=== PATIENT | male | born 1935 | race Caucasian/White ===

== ENCOUNTER 2016-08-30 09:37 | Outpatient (RCR) | payer MEDICARE, OTHER ==
--- OUTSIDE RECORDS SUMMARY | 2016-08-23 10:57 | XMS REPORT | Continuity of Care Document ---
Author Author [facility] Organization [facility] Address Unknown Phone Unavailable Care Team Providers Care Suede Cleaner Name Role Phone AKASH GONZALES MD PCP Insurance Providers Payer Name Policy Number Subscriber Name Relationship [employer] [id number] Ginette Cochran 18 Self / Same As Patient For Life [id number] Ginette Cochran 18 Self / Same As Patient Advance Directives Directive Response Recorded Date/Time Advance Directives Yes 08/16/14 1:36pm Organ Donor Yes 08/16/14 1:36pm Resuscitation Status DNR-Pt Request 08/16/14 1:36pm Problems Medical Problems Problem Onset Date Status Urinary tract infection Unknown Active Prostate cancer Unknown Active Medications Medication Dose Route Sig Days/Qty Instructions Order Date Discontinued Date Status [lisinopril] PO DAILY 12/23/12 08/10/14 Discontinued Pantoprazole Sod 40 Mg PO DAILY 12/23/12 Active Ciprofloxacin HCl 500 Mg PO TWICE A DAY 10 Qty 08/16/14 Active Social History Social History Problem Response Recorded Date/Time Alcohol Use Regular Use 08/16/2014 1:36pm Recreational Drug Use No 08/16/2014 1:36pm Recent Foreign Travel No 08/16/2014 1:31pm Smoking Status Never a Smoker 08/16/2014 1:36pm Query Response Start Date Stop Date Smoking Status Never a Smoker Hospital Discharge Instructions No hospital discharge instructions. Plan of Care No plan of care. Functional Status No functional status results. Allergies, Adverse Reactions, Alerts Allergen Type Severity Reaction Status Last Updated No Known Drug Allergies Active 12/23/12 Immunizations Name Given Type Date of Pneumonia Vaccine 10/14/09 Historical Date of Influenza Vaccine 08/14/12 Historical Vital Signs Acute Vital Signs Vital Response Date/Time Temperature (Fahrenheit) 98.7 degrees F (97.6 - 99.5) Temperature (Calculated Celsius) 37.06107 degrees C (36.4 - 37.5) Temperature Source Temporal Pulse Rate (adult) 109 bpm (60 - 90) Respiratory Rate 18 bpm (12 - 24) O2 Sat by Pulse Oximetry 97 % (88 - 100) Blood Pressure 146/69 mm Hg Pain Pain Intensity 4 Height (Feet) 5 feet Height (Inches) 8.00 inches Height (Calculated Centimeters) 172.586915 cm Weight (Pounds) 150 pounds Weight (Calculated Grams) 40472.856 gm Weight (Calculated Kilograms) 68.000157 kilograms Calculated BMI 21.09 Results Test Source Date Result Interp. Ref. Range Comments Alanine Aminotransferase (ALT/SGPT) August 10, 2014 11:20am 13 U/L N 0- 55 Albumin August 10, 2014 11:20am 4.2 G/DL N 3.2-4.5 Alkaline Phosphatase August 10, 2014 11:20am 107 U/L N 40-136 Aspartate Amino Transf (AST/SGOT) August 10, 2014 11:20am 24 U/L N 5- 34 BUN/Creatinine Ratio August 10, 2014 11:20am 14 - Blood Urea Nitrogen August 10, 2014 11:20am 11 MG/DL N 7-18 Calcium Level August 10, 2014 11:20am 9.0 MG/DL N 8.5-10.1 Carbon Dioxide Level August 10, 2014 11:20am 24 MMOL/L N 21-32 Chloride Level August 10, 2014 11:20am 106 MMOL/L N 98-107 Creatinine August 10, 2014 11:20am 0.79 MG/DL N 0.60-1.30 Glucose Level August 10, 2014 11:20am 71 MG/DL N 70-105 Potassium Level August 10, 2014 11:20am 3.7 MMOL/L N 3.6-5.0 Sodium Level August 10, 2014 11:20am 142 MMOL/L N 135-145 Total Bilirubin August 10, 2014 11:20am 1.8 MG/DL H 0.1-1.0 Total Protein August 10, 2014 11:20am 7.1 G/DL N 6.4-8.2 Estimat Glomerular Filtration Rate August 10, 2014 11:20am > 60 - GFR INTERPRETIVE DATA UNITS FOR ESTIMATED GFR (eGFR): mL/min/1.73 M2 REFERENCE RANGE FOR ESTIMATED GFR (eGFR) eGFR NORMAL eGFR >60 MODERATELY DECREASED eGFR 30-59 SEVERLY DECREASED eGFR 15-29 KIDNEY FAILURE <15 (OR DIALYSIS) Procedures Procedure Status Date Provider(s) COLONOSCOPY AND BIOPSY completed 08/10/14 AKASH GONZALES MD Encounters Encounter Location Date/Time Departed Emergency Room [facility] 08/16/14 12:53pm Registered Clinic [facility] 08/06/14 7:08am Recent Diagnosis
[2016-08-23 11:24] LABS: BASOPHILS # (AUTO) 0.1 10^3/uL (0.0-0.1); BASOPHILS % (AUTO) 1 % (0-10); EOSINOPHILS # (AUTO) 0.3 10^3/uL (0.0-0.3); EOSINOPHILS % (AUTO) 5 % (0-10); LYMPHOCYTES # (AUTO) 1.1 X 10^3 (1.0-4.0); LYMPHOCYTES % (AUTO) 16 % (12-44); MEAN CORPUSCULAR HEMOGLOBIN 30 PG (25-34); MEAN CORPUSCULAR HGB CONC 34 G/DL (32-36); MEAN CORPUSCULAR VOLUME 89 FL (80-99); MONOCYTES # (AUTO) 0.5 X 10^3 (0.0-1.0); MONOCYTES % (AUTO) 8 % (0-12); NEUTROPHILS # (AUTO) 4.9 X 10^3 (1.8-7.8); NEUTROPHILS % (AUTO) 71 % (42-75); PLATELET COUNT 291 10^3/uL (130-400); RED BLOOD COUNT 4.16 10^6/uL (4.35-5.85); RED CELL DISTRIBUTION WIDTH 12.5 % (10.0-14.5); WHITE BLOOD COUNT 6.9 10^3/uL (4.3-11.0)
[2016-08-23 11:50] LABS: ALANINE AMINOTRANSFERASE 12 U/L (0-55); ALBUMIN 4.2 G/DL (3.2-4.5); ANION GAP 8 MMOL/L (5-14); ASPARTATE AMINO TRANSFERASE 22 U/L (5-34); BILIRUBIN,TOTAL 0.9 MG/DL (0.1-1.0); BLOOD UREA NITROGEN 14 MG/DL (7-18); BUN/CREATININE RATIO 17; CALCIUM 9.6 MG/DL (8.5-10.1); CARBON DIOXIDE 27 MMOL/L (21-32); CHLORIDE 106 MMOL/L (98-107); CREATININE SERUM 0.84 MG/DL (0.60-1.30); GFR ESTIMATED > 60; GLUCOSE 84 MG/DL (70-105); POTASSIUM 4.3 MMOL/L (3.6-5.0); SODIUM 141 MMOL/L (135-145); TOTAL PROTEIN 6.7 G/DL (6.4-8.2)
[~2016-08-30 09:37] MED LIST: CHOL200025 PO; CIPR500T78 PO; LEUPROLIDE ACETATE 30 MG SQ SCH; PANT40TA3 PO; PNT40TEC PO; VNL37.5T PO; lisinopril PO
== END 2016-11-21 | disposition home or self-care (01) ==
LOC: ONC 09:37
PROVIDERS: ATTEND Internal Medicine Hematology & Oncology
DX: C61 Malignant neoplasm of prostate (principal); C79.51 Secondary malignant neoplasm of bone; Z79.899 Other long term (current) drug therapy
CPT/HCPCS: 36415; 80053; 82306; 84153; 85025; 96402; 99213

== ENCOUNTER 2016-12-20 13:02 | Outpatient (RCR) | payer MEDICARE, OTHER ==
--- OUTSIDE RECORDS SUMMARY | 2016-12-13 09:49 | XMS REPORT | Continuity of Care Document ---
Author Author [facility] Organization [facility] Address Unknown Phone Unavailable Care Team Providers Care Logging Crew Foreman Name Role Phone AKASH GONZALES MD PCP Insurance Providers Payer Name Policy Number Subscriber Name Relationship [employer] [id number] Ginette Cochran 18 Self / Same As Patient For Life [id number] Ginette Cochran 17 Self / Same As [...] F (97.6 - 99.5) Temperature (Calculated Celsius) 37.13041 degrees C (36.4 - 37.5) Temperature Source Temporal Pulse Rate (adult) 109 bpm (60 - 90) Respiratory Rate 18 bpm (12 - 24) O2 Sat by Pulse Oximetry 97 % (88 - 100) Blood Pressure 146/69 mm Hg Pain Pain Intensity 4 Height (Feet) 5 feet Height (Inches) 8.00 inches Height (Calculated Centimeters) 172.428343 cm Weight (Pounds) 150 pounds Weight (Calculated Grams) 90204.856 gm Weight (Calculated Kilograms) 68.601217 kilograms Calculated BMI 21.09 Results Test Source [...] Encounter Location Date/Time Departed Emergency Room [facility] 08/16/14 12:53pm Registered Clinic [facility] 08/06/14 7:08am Recent Diagnosis
[2016-12-13 09:57] LABS: BASOPHILS # (AUTO) 0.1 10^3/uL (0.0-0.1); BASOPHILS % (AUTO) 1 % (0-10); EOSINOPHILS # (AUTO) 0.4 10^3/uL (0.0-0.3); EOSINOPHILS % (AUTO) 9 % (0-10); LYMPHOCYTES # (AUTO) 1.1 X 10^3 (1.0-4.0); LYMPHOCYTES % (AUTO) 27 % (12-44); MEAN CORPUSCULAR HEMOGLOBIN 30 PG (25-34); MEAN CORPUSCULAR HGB CONC 34 G/DL (32-36); MEAN CORPUSCULAR VOLUME 88 FL (80-99); MEAN PLATELET VOLUME 8.3 FL (7.4-10.4); MONOCYTES # (AUTO) 0.5 X 10^3 (0.0-1.0); MONOCYTES % (AUTO) 11 % (0-12); NEUTROPHILS # (AUTO) 2.2 X 10^3 (1.8-7.8); NEUTROPHILS % (AUTO) 52 % (42-75); PLATELET COUNT 283 10^3/uL (130-400); RED BLOOD COUNT 4.04 10^6/uL (4.35-5.85); RED CELL DISTRIBUTION WIDTH 12.7 % (10.0-14.5); WHITE BLOOD COUNT 4.2 10^3/uL (4.3-11.0)
[2016-12-13 10:28] LABS: ALANINE AMINOTRANSFERASE 13 U/L (0-55); ALBUMIN 4.1 G/DL (3.2-4.5); ANION GAP 9 MMOL/L (5-14); ASPARTATE AMINO TRANSFERASE 21 U/L (5-34); BILIRUBIN,TOTAL 0.8 MG/DL (0.1-1.0); BLOOD UREA NITROGEN 14 MG/DL (7-18); BUN/CREATININE RATIO 16; CALCIUM 9.3 MG/DL (8.5-10.1); CARBON DIOXIDE 26 MMOL/L (21-32); CHLORIDE 110 MMOL/L (98-107); CREATININE SERUM 0.89 MG/DL (0.60-1.30); GFR ESTIMATED > 60; GLUCOSE 71 MG/DL (70-105); POTASSIUM 4.4 MMOL/L (3.6-5.0); SODIUM 145 MMOL/L (135-145); TOTAL PROTEIN 6.3 G/DL (6.4-8.2)
== END 2017-03-13 | disposition home or self-care (01) ==
LOC: ONC 13:02
PROVIDERS: ATTEND Internal Medicine Hematology & Oncology
DX: C61 Malignant neoplasm of prostate (principal); C79.51 Secondary malignant neoplasm of bone; Z79.899 Other long term (current) drug therapy
CPT/HCPCS: 36415; 80053; 84153; 85025; 96402; 99213

== ENCOUNTER 2017-04-04 13:22 | Emergency (ER) | payer MEDICARE, OTHER ==
[~2017-04-04] VITALS: Ht 170.2 cm; Wt 72.6 kg
[~2017-04-04 13:22] MED LIST changes: -LEUPROLIDE ACETATE 30 MG SQ SCH
[2017-04-04 14:07] LABS: BILIRUBIN,URINE NEGATIVE (NEGATIVE); KETONES,URINE NEGATIVE (NEGATIVE); LEUKOCYTE ESTERASE ,URINE NEGATIVE (NEGATIVE); NITRITE,URINE NEGATIVE (NEGATIVE); PH,URINE 7 (5-9); PROTEIN,URINE NEGATIVE (NEGATIVE); UROBILINOGEN,URINE NORMAL (NORMAL)
--- NOTE | 2017-04-04 14:21 | ED General ---
General Chief Complaint: Dizziness/Syncope Stated Complaint: DIZZY SPELLS Nursing Triage Note: PT REPORTS DIZZINESS AND UNSTEADY GAIT SINCE HE AWOKE THIS MORNING. HE DENIES N/V OR VISION CHANGES. Nursing Sepsis Screen: No Definite Risk Source of Information: Patient Exam Limitations: No Limitations History of Present Illness Time Seen by Provider: 14:17 Initial Comments The patient reports that beginning late yesterday he has had the sensation of dizziness when he sits up. This is worse when he stands. He does not describe spinning. There is no change in vision. He describes and his confirms that there is no change in speech or cognitive function. Timing/Duration: 12-24 Hours Allergies and Home Medications Allergies Coded Allergies: No Known Drug Allergies (Unverified , 12/23/12) Home Medications Cholecalciferol (Vitamin D3) 2,000 Unit Tablet, 2,000 UNIT PO DAILY, (Reported) Pantoprazole Sodium 40 Mg Tablet.dr, 40 MG PO DAILY, (Reported) Venlafaxine HCl 37.5 Mg Tab, 37.5 MG PO DAILY, (Reported) Constitutional: see HPI EENTM: no symptoms reported Respiratory: no symptoms reported Cardiovascular: no symptoms reported Gastrointestinal: no symptoms reported Genitourinary: other (prostate cancer) Musculoskeletal: no symptoms reported Skin: no symptoms reported Psychiatric/Neurological: No Symptoms Reported Past Tcvefpw-Blywhx-Ancytr Hx Patient Social History Alcohol Use: Occasionally Uses Recreational Drug Use: No Smoking Status: Never a Smoker 2nd Hand Smoke Exposure: No Recent Foreign Travel: No Contact w/Someone Who Travel: No Recent Infectious Disease Expo: No Immunizations Up To Date Date of Pneumonia Vaccine: May 30, 2012 Date of Influenza Vaccine: Aug 16, 2014 Seasonal Allergies Seasonal Allergies: No Surgeries HX Surgeries: Yes (pyloric stenosis sx, ) Respiratory Hx Respiratory Disorders: No Cardiovascular Hx Cardiac Disorders: No Neurological Hx Neurological Disorders: No Genitourinary Hx Genitourinary Disorders: Yes Genitourinary Disorders: Prostate Problems Gastrointestinal Hx Gastrointestinal Disorders: No Musculoskeletal Hx Musculoskeletal Disorders: No Endocrine Hx Endocrine Disorders: No HEENT HX ENT Disorders: No Cancer Hx Cancer: Yes Cancer: Prostate Psychosocial Hx Psychiatric Problems: No Integumentary HX Skin/Integumentary Disorder: No Blood Transfusions Hx Blood Disorders: No Adverse Reaction to a Blood Tr: No Family Medical History Family Medial History: Urinary tract infection 18 FATHER Physical Exam Vital Signs Vital Sign - Last 12Hours 04/04/17 13:30 Temp 98.9 Pulse 81 Resp 16 B/P (MAP) 153/88 Pulse Ox 97 O2 Delivery Room Air Capillary Refill : Less Than 3 Seconds General Appearance: No Apparent Distress, WD/WN Eyes: Right Eye Abnormal Pupil (dilated after an injury) HEENT: Normal ENT Inspection Neck: Full Range of Motion, Normal Inspection, Non Tender, Supple, Carotid Bruit Cardiovascular: Systolic Murmur (grade 2 systolic murmur right and left second intercostal space) Gastrointestinal: Normal Bowel Sounds, No Organomegaly, No Pulsatile Mass, Non Tender, Soft Extremity: Normal Capillary Refill, Normal Inspection, Normal Range of Motion, Non Tender, No Calf Tenderness, No Pedal Edema Neurologic/Psychiatric: Alert, Oriented x3, No Motor/Sensory Deficits, Normal Mood/Affect Skin: Normal Color, Warm/Dry Lymphatic: No Adenopathy Progress/Results/Core Measures Results/Orders Lab Results Laboratory Tests Test 04/04/17 13:39 04/04/17 14:08 Range/Units Urine Color YELLOW Urine Clarity CLEAR Urine pH 7 5-9 Urine Specific [place] 1.010 L 1.016-1.022 Urine Protein NEGATIVE NEGATIVE Urine Glucose (UA) NEGATIVE NEGATIVE Urine Ketones NEGATIVE NEGATIVE Urine Nitrite NEGATIVE NEGATIVE Urine Bilirubin NEGATIVE NEGATIVE Urine Urobilinogen NORMAL NORMAL MG/DL Urine Leukocyte Esterase NEGATIVE NEGATIVE Urine RBC (Auto) 1+ H NEGATIVE Urine RBC RARE /HPF Urine WBC NONE /HPF Urine Squamous Epithelial Cells RARE /HPF Urine Crystals NONE /LPF Urine Bacteria NEGATIVE /HPF Urine Casts NONE /LPF Urine Mucus NEGATIVE /LPF Urine Culture Indicated NO White Blood Count 4.8 4.3-11.0 10^3/uL Red Blood Count 3.99 L 4.35-5.85 10^6/uL Hemoglobin 12.0 L 13.3-17.7 G/DL Hematocrit 36 L 40-54 % Mean Corpuscular Volume 90 80-99 FL Mean Corpuscular Hemoglobin 30 25-34 PG Mean Corpuscular Hemoglobin Concent 33 32-36 G/DL Red Cell Distribution Width 12.3 10.0-14.5 % Platelet Count 279 130-400 10^3/uL Mean Platelet Volume 9.0 7.4-10.4 FL Neutrophils (%) (Auto) 59 42-75 % Lymphocytes (%) (Auto) 24 12-44 % Monocytes (%) (Auto) 11 0-12 % Eosinophils (%) (Auto) 6 0-10 % Basophils (%) (Auto) 1 0-10 % Neutrophils # (Auto) 2.8 1.8-7.8 X 10^3 Lymphocytes # (Auto) 1.1 1.0-4.0 X 10^3 Monocytes # (Auto) 0.5 0.0-1.0 X 10^3 Eosinophils # (Auto) 0.3 0.0-0.3 10^3/uL Basophils # (Auto) 0.0 0.0-0.1 10^3/uL Sodium Level 143 135-145 MMOL/L Potassium Level 3.9 3.6-5.0 MMOL/L Chloride Level 108 H 98-107 MMOL/L Carbon Dioxide Level 28 21-32 MMOL/L Anion Gap 7 5-14 MMOL/L Blood Urea Nitrogen 15 7-18 MG/DL Creatinine 1.05 0.60-1.30 MG/DL Estimat Glomerular Filtration Rate > 60 BUN/Creatinine Ratio 14 0-20 Glucose Level 102 70-105 MG/DL Calcium Level 9.3 8.5-10.1 MG/DL Total Bilirubin 0.9 0.1-1.0 MG/DL Aspartate Amino Transf (AST/SGOT) 25 5-34 U/L Alanine Aminotransferase (ALT/SGPT) 12 0-55 U/L Alkaline Phosphatase 97 40-136 U/L Total Protein 6.5 6.4-8.2 GM/DL Albumin 3.8 3.2-4.5 GM/DL My Orders Orders - HALIE LORENZO MD Ekg Tracing (04/04/17 13:44) Cbc With Automated Diff (04/04/17 13:44) Comprehensive Metabolic Panel (04/04/17 13:44) Ua Culture If Indicated (04/04/17 13:44) Vital Signs/I&O Vital Sign - Last 12Hours 04/04/17 13:30 Temp 98.9 Pulse 81 Resp 16 B/P (MAP) 153/88 Pulse Ox 97 O2 Delivery Room Air Blood Pressure Mean: 109 Departure Communication Progress Notes Laboratory returned within normal limits. Discussion was held about the issues here. He is previously had some episodes with vertigo and Dr. Gonzales had given him meclizine in the past. We agree that if he feels this way in the morning he will take 1. Further his states that he plans to drive his pickup truck home. I agree with the and have informed him that this is not a good plan today. Impression Impression: Primary Impression: vertigo Disposition: 01 HOME, SELF-CARE Condition: Stable/Unchanged Departure-Patient Inst. Decision time for Depature: 15:11 Referrals: AKASH GONZALES MD (PCP/Family) Primary Care Physician Patient Instructions: Vertigo (a Type of Dizziness) (DC) Add. Discharge Instructions: All discharge instructions reviewed with patient and/or family. Voiced understanding. Rest quietly the remainder of the day. Take plenty of liquids. If symptoms remain in the a.m. consider taking the vertigo pill or discussing with HALIE Parekh MD Apr 04, 2017 14:21
[2017-04-04 14:31] LABS: BASOPHILS % (AUTO) 1 % (0-10); EOSINOPHILS # (AUTO) 0.3 10^3/uL (0.0-0.3); EOSINOPHILS % (AUTO) 6 % (0-10); LYMPHOCYTES # (AUTO) 1.1 X 10^3 (1.0-4.0); LYMPHOCYTES % (AUTO) 24 % (12-44); MEAN CORPUSCULAR HEMOGLOBIN 30 PG (25-34); MEAN CORPUSCULAR HGB CONC 33 G/DL (32-36); MEAN CORPUSCULAR VOLUME 90 FL (80-99); MONOCYTES # (AUTO) 0.5 X 10^3 (0.0-1.0); MONOCYTES % (AUTO) 11 % (0-12); NEUTROPHILS # (AUTO) 2.8 X 10^3 (1.8-7.8); NEUTROPHILS % (AUTO) 59 % (42-75); PLATELET COUNT 279 10^3/uL (130-400); RED BLOOD COUNT 3.99 10^6/uL (4.35-5.85); RED CELL DISTRIBUTION WIDTH 12.3 % (10.0-14.5); WHITE BLOOD COUNT 4.8 10^3/uL (4.3-11.0)
[2017-04-04 14:33] LABS: SQUAMOUS EPITHELIAL CELL,UR RARE /HPF
[2017-04-04 14:41] LABS: ALANINE AMINOTRANSFERASE 12 U/L (0-55); ALBUMIN 3.8 GM/DL (3.2-4.5); ANION GAP 7 MMOL/L (5-14); ASPARTATE AMINO TRANSFERASE 25 U/L (5-34); BILIRUBIN,TOTAL 0.9 MG/DL (0.1-1.0); BLOOD UREA NITROGEN 15 MG/DL (7-18); BUN/CREATININE RATIO 14 (0-20); CALCIUM 9.3 MG/DL (8.5-10.1); CARBON DIOXIDE 28 MMOL/L (21-32); CHLORIDE 108 MMOL/L (98-107); CREATININE SERUM 1.05 MG/DL (0.60-1.30); GFR ESTIMATED > 60; GLUCOSE 102 MG/DL (70-105); HEMOLYSIS 9 (-100-29); ICTERUS 0.8 (-100-1.9); LIPEMIA 2 (-100-49); POTASSIUM 3.9 MMOL/L (3.6-5.0); SODIUM 143 MMOL/L (135-145); TOTAL PROTEIN 6.5 GM/DL (6.4-8.2)
[2017-04-04 15:24] VITALS: BP 153/88
--- OUTSIDE RECORDS SUMMARY | 2017-04-08 14:16 | XMS REPORT ---
Author Author DONAVAN ALANIZ Organization [employer] Address Unknown Phone Unavailable Care Team Providers Care Repair Technician Name Role Phone DONAVAN ALANIZ CP Unavailable Allergies No Known Allergies Problems Problem Type Condition ICD-9 Code Onset Dates Condition Status Assessment Dental examination V72.2 Active Problem PPV23 (PNEUMOVAX) DX V03.82 Active Medications No Known Medications Procedures Procedure Coding System Code Date Billing Notes on claim CPT-4 EC109 March 15, 2015 Results No Known Results Summary Purpose [employer] Submission
--- OUTSIDE RECORDS SUMMARY | 2017-04-08 14:16 | XMS REPORT | Continuity of Care Document ---
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 04/03/2016 JESSICA MATHIS N Ot C61 MALIGNANT NEOPLASM OF PROSTATE 04/03/2016 JESSICA MATHIS N 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 04/03/2016 DEL JESSICA N 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 04/03/2016 DEL JESSICA N Ot C61 MALIGNANT NEOPLASM OF PROSTATE 04/03/2016 JESSICA MATHIS N 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 04/03/2016 JESSICA MATHIS N Ot Z79.899 OTHER ALF (CURRENT) DRUG THERAPY 04/10/2016 Ot 788.41 URINARY FREQUENCY 04/10/2016 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 04/10/2016 Ot V72.84 EXAM PRE-OPERATIVE NOS 04/10/2016 AKASH GONZALES MD Ot V72.84 EXAM PRE-OPERATIVE NOS 04/10/2016 CHRISTIAN JOYCE, AKASH Galeano Ot 154.1 MALIGNANT NEOPL RECTUM 04/10/2016 AKASH GONZALES MD 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 04/10/2016 AKASH GONZALES MD Ot 562.10 DIVERTICULOSIS COLON (W/O MENT OF HEMORR 04/10/2016 AKASH GONZALES MD Ot V15.3 HX OF IRRADIATION 04/10/2016 DEL, BOBAN N 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 04/10/2016 DEL BOBAN N Ot 793.7 NOSP (ABN) FINDINGS ON RADIOLOGICAL OT 04/10/2016 CHERRI PENG FISHER SCALLOP 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 04/10/2016 DEL BOBAN N 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 04/10/2016 DEL BOBAN N 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 04/10/2016 DEL BOBAN N Ot 781.91 LOSS OF HEIGHT 04/10/2016 DEL, BOBAN N 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 04/10/2016 DEL, BOBAN N 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 04/10/2016 DEL BOBAN N Ot 733.90 BONE CARTILAGE DIS NOS 04/10/2016 CHERRI PENG FISHER SCALLOP 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 04/10/2016 CHERRI PENG S FISHER SCALLOP 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 04/10/2016 CHRISTIAN JOYCE, AKASH Galeano Ot 787.20 DYSPHAGIA, UNSPECIFIED 04/10/2016 AKASH GONZALES MD Ot V72.84 EXAM PRE-OPERATIVE NOS 04/10/2016 CHERRI PENG FISHER SCALLOP Ot C61 MALIGNANT NEOPLASM OF PROSTATE 04/10/2016 CHERRI PENG FISHER SCALLOP 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 04/10/2016 CHERRI PENG FISHER SCALLOP Ot 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, UNSPECIFIED 04/10/2016 CHERRI PENG FISHER SCALLOP Ot R23.2 FLUSHING 04/10/2016 CHERRI PENG FISHER SCALLOP Ot Z79.899 OTHER ALF (CURRENT) DRUG THERAPY 04/10/2016 JESSICA MATHIS N Ot C61 MALIGNANT NEOPLASM OF PROSTATE 04/10/2016 JESSICA MATHIS N 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 04/10/2016 JESSICA MATHIS N 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 04/10/2016 JESSICA MATHIS N Ot C61 MALIGNANT NEOPLASM OF PROSTATE 04/10/2016 JESSICA MATHIS N 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 04/10/2016 JESSICA MATHIS N Ot Z79.899 OTHER ALF (CURRENT) DRUG THERAPY 04/12/2016 Ot 788.41 URINARY FREQUENCY 04/12/2016 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 04/12/2016 Ot V72.84 EXAM PRE-OPERATIVE NOS 04/12/2016 CHRISTIAN JOYCE, AKASH Galeano Ot V72.84 EXAM PRE-OPERATIVE NOS 04/12/2016 CHRISTIAN JOYCE, AKASH Galeano Ot 154.1 MALIGNANT NEOPL RECTUM 04/12/2016 CHRISTIAN JOYCE, AKASH Galeano 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 04/12/2016 CHRISTIAN JOYCE, AKASH Galeano Ot 562.10 DIVERTICULOSIS COLON (W/O MENT OF HEMORR 04/12/2016 CHRISTIAN JOYCE, AKASH Galeano Ot V15.3 HX OF IRRADIATION 04/12/2016 DEL BOBAN N 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 04/12/2016 DELJESSICA GALARZA N Ot 793.7 NOSP (ABN) FINDINGS ON RADIOLOGICAL OT 04/12/2016 CHERRI PENG S FISHER SCALLOP 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 04/12/2016 DEL BOBAN N 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 04/12/2016 DEL BOBAN N 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 04/12/2016 BOBBI MATHISAN N Ot 781.91 LOSS OF HEIGHT 04/12/2016 DEL BOBAN N 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 04/12/2016 DEL BOBAN N 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 04/12/2016 DEL, BOBAN N Ot 733.90 BONE CARTILAGE DIS NOS 04/12/2016 CHERRI PENG S FISHER SCALLOP 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 04/12/2016 CHERRI PENG S FISHER SCALLOP 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 04/12/2016 CHRISTIAN JOYCE, AKASH Galeano Ot 787.20 DYSPHAGIA, UNSPECIFIED 04/12/2016 CHRISTIAN JOYCE, AKASH Galeano Ot V72.84 EXAM PRE-OPERATIVE NOS 04/12/2016 CHERRI PENG FISHER SCALLOP Ot C61 MALIGNANT NEOPLASM OF PROSTATE 04/12/2016 CHERRI PENG FISHER SCALLOP 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 04/12/2016 CHERRI PENG FISHER SCALLOP Ot 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, UNSPECIFIED 04/12/2016 CHERRI PENG FISHER SCALLOP Ot R23.2 FLUSHING 04/12/2016 CHERRI PENG FISHER SCALLOP Ot Z79.899 OTHER WET WASHER 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) DRUG THERAPY 04/12/2016 DELJESSICA GALARZA N Ot C61 MALIGNANT NEOPLASM OF PROSTATE 04/12/2016 DELJESSICA GALARZA N 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 04/12/2016 DELBOBBI GALARZAAN N 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 04/12/2016 DELJESSICA GALARZA N Ot C61 MALIGNANT NEOPLASM OF PROSTATE 04/12/2016 DEL BOBAN N 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 04/12/2016 DELJESSICA GALARZA N Ot Z79.899 OTHER WET WASHER 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) DRUG THERAPY 05/04/2016 DELJESSCIA GALARZA N Ot C61 MALIGNANT NEOPLASM OF PROSTATE 05/04/2016 DELBOBBI GALARZAAN N 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 05/04/2016 DELBOBBI GAALRZAAN N Ot Z79.899 OTHER WET WASHER 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) DRUG THERAPY 05/07/2016 Ot 788.41 URINARY FREQUENCY 05/07/2016 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 05/07/2016 Ot V72.84 EXAM PRE-OPERATIVE NOS 05/07/2016 CHRISTIAN JOYCE, AKASH Galeano Ot V72.84 EXAM PRE-OPERATIVE NOS 05/07/2016 CHRISTIAN JOYCE, AKASH Galeano Ot 154.1 MALIGNANT NEOPL RECTUM 05/07/2016 AKASH GONZALES MD 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 05/07/2016 CHRISTIAN JOYCE, AKASH Galeano Ot 562.10 DIVERTICULOSIS COLON (W/O MENT OF HEMORR 05/07/2016 AKASH GONZALES MD Ot V15.3 HX OF IRRADIATION 05/07/2016 BOBBI MATHISAN N 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 05/07/2016 JESSICA MATHIS N Ot 793.7 NOSP (ABN) FINDINGS ON RADIOLOGICAL OT 05/07/2016 CHERRI PENG FISHER SCALLOP 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 05/07/2016 JESSICA MATHIS N 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 05/07/2016 DEL BOBAN N 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 05/07/2016 JESSICA MATHIS N Ot 781.91 LOSS OF HEIGHT 05/07/2016 JESSICA MATHIS N 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 05/07/2016 JESSICA MATHIS N 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 05/07/2016 JESSICA MATHIS N Ot 733.90 BONE CARTILAGE DIS NOS 05/07/2016 CHERRI PENG FISHER SCALLOP 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 05/07/2016 CHERRI PENG FISHER SCALLOP 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 05/07/2016 CHRISTIAN JOYCE, AKASH Galeano Ot 787.20 DYSPHAGIA, UNSPECIFIED 05/07/2016 CHRISTIAN JOYCE, AKASH Galeano Ot V72.84 EXAM PRE-OPERATIVE NOS 05/07/2016 CHERRI PENG FISHER SCALLOP Ot C61 MALIGNANT NEOPLASM OF PROSTATE 05/07/2016 CHERRI PENG FISHER SCALLOP 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 05/07/2016 CHERRI PENG FISHER SCALLOP Ot 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, UNSPECIFIED 05/07/2016 CHERRI PENG S FISHER SCALLOP Ot R23.2 FLUSHING 05/07/2016 CHERRI PENG S FISHER SCALLOP Ot Z79.899 OTHER WET WASHER 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) DRUG THERAPY 05/07/2016 JESSICA MATHIS N Ot C61 MALIGNANT NEOPLASM OF PROSTATE 05/07/2016 JESSICA MATHIS N 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 05/07/2016 JESSICA MATHIS N 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 05/07/2016 JESSICA MATHIS N Ot C61 MALIGNANT NEOPLASM OF PROSTATE 05/07/2016 JESSICA MATHIS N 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 05/07/2016 JESSICA MATHIS N Ot Z79.899 OTHER ALF (CURRENT) DRUG THERAPY 05/08/2016 Ot 788.41 URINARY FREQUENCY 05/08/2016 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 05/08/2016 Ot V72.84 EXAM PRE-OPERATIVE NOS 05/08/2016 CHRISTIAN JOYCE, AKASH Galeano Ot V72.84 EXAM PRE-OPERATIVE NOS 05/08/2016 CHRISTIAN JOYCE, AKASH Galeano Ot 154.1 MALIGNANT NEOPL RECTUM 05/08/2016 AKASH GONZALES MD 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 05/08/2016 CHRISTIAN JOYCE, AKASH Galeano Ot 562.10 DIVERTICULOSIS COLON (W/O MENT OF HEMORR 05/08/2016 CHRISTIAN JOYCE, AKASH Galeano Ot V15.3 HX OF IRRADIATION 05/08/2016 DEL, BOBAN N 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 05/08/2016 DEL, BOBAN N Ot 793.7 NOSP (ABN) FINDINGS ON RADIOLOGICAL OT 05/08/2016 VITOR PENGAH S FISHER SCALLOP 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 05/08/2016 DEL, BOBAN N 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 05/08/2016 DEL, BOBAN N 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 05/08/2016 DEL, BOBAN N Ot 781.91 LOSS OF HEIGHT 05/08/2016 DEL, BOBAN N 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 05/08/2016 DEL, BOBAN N 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 05/08/2016 DEL, BOBAN N Ot 733.90 BONE CARTILAGE DIS NOS 05/08/2016 CHERRI PENG S FISHER SCALLOP 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 05/08/2016 PENGCHERRI S FISHER SCALLOP 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 05/08/2016 CHRISTIAN JOYCE, AKASH Galeano Ot 787.20 DYSPHAGIA, UNSPECIFIED 05/08/2016 CHRISTIAN JOYCE, AKASH Galeano Ot V72.84 EXAM PRE-OPERATIVE NOS 05/08/2016 CHERRI PENG S FISHER SCALLOP Ot C61 MALIGNANT NEOPLASM OF PROSTATE 05/08/2016 CHERRI PENG S FISHER SCALLOP 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 05/08/2016 CHERRI PENG S FISHER SCALLOP Ot 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, UNSPECIFIED 05/08/2016 CHERRI PENG S FISHER SCALLOP Ot R23.2 FLUSHING 05/08/2016 CHERRI PENG S FISHER SCALLOP Ot Z79.899 OTHER ALF (CURRENT) DRUG THERAPY 05/08/2016 JESSICA MATHIS N Ot C61 MALIGNANT NEOPLASM OF PROSTATE 05/08/2016 JESSICA MATHIS N 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 05/08/2016 JESSICA MATHIS N 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 05/08/2016 JESSICA MATHIS N Ot C61 MALIGNANT NEOPLASM OF PROSTATE 05/08/2016 JESSICA MATHIS N 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 05/08/2016 JESSICA MATHIS N Ot Z79.899 OTHER ALF (CURRENT) DRUG THERAPY 05/11/2016 Ot 788.41 URINARY FREQUENCY 05/11/2016 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 05/11/2016 Ot V72.84 EXAM PRE-OPERATIVE NOS 05/11/2016 CHRISTIAN JOYCE, AKASH Galeano Ot V72.84 EXAM PRE-OPERATIVE NOS 05/11/2016 CHRISTIAN JOYCE, AKASH Galeano Ot 154.1 MALIGNANT NEOPL RECTUM 05/11/2016 CHRISTIAN JOYCE, AKASH Galeano 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 05/11/2016 CHRISTIAN JOYCE, AKASH Galeano Ot 562.10 DIVERTICULOSIS COLON (W/O MENT OF HEMORR 05/11/2016 CHRISTIAN JOYCE, AKASH Galeano Ot V15.3 HX OF IRRADIATION 05/11/2016 DEL, BOBAN N 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 05/11/2016 DELJESSICA GALARZA N Ot 793.7 NOSP (ABN) FINDINGS ON RADIOLOGICAL OT 05/11/2016 CHERRI PENG FISHER SCALLOP 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 05/11/2016 DEL BOBAN N 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 05/11/2016 DELBOBBI GALARZAAN N 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 05/11/2016 DELBOBBI GALARZAAN N Ot 781.91 LOSS OF HEIGHT 05/11/2016 DEL, BOBAN N 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 05/11/2016 DELBOBBIAN N 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 05/11/2016 DEL BOBAN N Ot 733.90 BONE CARTILAGE DIS NOS 05/11/2016 CHERRI PENG FISHER SCALLOP 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 05/11/2016 CHERRI PENG FISHER SCALLOP 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 05/11/2016 CHRISTIAN JOYCE, AKASH Galeano Ot 787.20 DYSPHAGIA, UNSPECIFIED 05/11/2016 CHRISTIAN JOYCE, AKASH Galeano Ot V72.84 EXAM PRE-OPERATIVE NOS 05/11/2016 CHERRI PENG FISHER SCALLOP Ot C61 MALIGNANT NEOPLASM OF PROSTATE 05/11/2016 CHERRI PENG FISHER SCALLOP 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 05/11/2016 CHERRI PENG FISHER SCALLOP Ot 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, UNSPECIFIED 05/11/2016 CHERRI PENG FISHER SCALLOP Ot R23.2 FLUSHING 05/11/2016 CHERRI EPNG FISHER SCALLOP Ot Z79.899 OTHER ALF (CURRENT) DRUG THERAPY 05/11/2016 JESSICA MATHIS N Ot C61 MALIGNANT NEOPLASM OF PROSTATE 05/11/2016 JESSICA MATHIS N 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 05/11/2016 JESSICA MATHIS N 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 05/11/2016 BOBBI MATHISLUZ N Ot C61 MALIGNANT NEOPLASM OF PROSTATE 05/11/2016 BOBBI MATHISLUZ N 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 05/11/2016 JESSICA MATHIS N Ot Z79.899 OTHER WET WASHER 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) DRUG THERAPY 05/14/2016 CHERRI PENG FISHER SCALLOP Ot C61 MALIGNANT NEOPLASM OF PROSTATE 05/14/2016 CHERRI PENG FISHER SCALLOP 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 05/14/2016 CHERRI PENG FISHER SCALLOP Ot Z79.899 OTHER WET WASHER 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) DRUG THERAPY 05/29/2016 Ot 788.41 URINARY FREQUENCY 05/29/2016 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 05/29/2016 Ot V72.84 EXAM PRE-OPERATIVE NOS 05/29/2016 CHRISTIAN JOYCE, AKASH Galeano Ot V72.84 EXAM PRE-OPERATIVE NOS 05/29/2016 CHRISTIAN JOYCE, AKASH Galeano Ot 154.1 MALIGNANT NEOPL RECTUM 05/29/2016 AKASH GONZALES MD 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 05/29/2016 CHRISTIAN JOYCE, AKASH Galeano Ot 562.10 DIVERTICULOSIS COLON (W/O MENT OF HEMORR 05/29/2016 AKASH GONZALES MD Ot V15.3 HX OF IRRADIATION 05/29/2016 JESSICA MATHIS N 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 05/29/2016 DELJESSICA Ot 793.7 NOSP (ABN) FINDINGS ON RADIOLOGICAL OT 05/29/2016 CHERRI PENG FISHER SCALLOP 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 05/29/2016 DEL JESSICA N 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 05/29/2016 JESSICA MATHIS N 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 05/29/2016 JESSICA MATHIS N Ot 781.91 LOSS OF HEIGHT 05/29/2016 JESSICA MATHIS N 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 05/29/2016 JESSICA MATHIS N 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 05/29/2016 DEL BOBBILUZ N Ot 733.90 BONE CARTILAGE DIS NOS 05/29/2016 CHERRI PENG S FISHER SCALLOP 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 05/29/2016 CHERRI PENG FISHER SCALLOP 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 05/29/2016 CHRISTIAN JOYCE, AKASH Galeano Ot 787.20 DYSPHAGIA, UNSPECIFIED 05/29/2016 CHRISTIAN JOYCE, AKASH Galeano Ot V72.84 EXAM PRE-OPERATIVE NOS 05/29/2016 CHERRI PENG S FISHER SCALLOP Ot C61 MALIGNANT NEOPLASM OF PROSTATE 05/29/2016 CHERRI PENG S FISHER SCALLOP 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 05/29/2016 CHERRI PENG FISHER SCALLOP Ot 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, UNSPECIFIED 05/29/2016 CHERRI PENG S FISHER SCALLOP Ot R23.2 FLUSHING 05/29/2016 CHERRI PENG S FISHER SCALLOP Ot Z79.899 OTHER WET WASHER 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) DRUG THERAPY 05/29/2016 JESSICA MATHIS N Ot C61 MALIGNANT NEOPLASM OF PROSTATE 05/29/2016 DEL JESSICA N 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 05/29/2016 DEL JESSICA N 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 05/29/2016 DEL JESSICA N Ot C61 MALIGNANT NEOPLASM OF PROSTATE 05/29/2016 DEL JESSICA N 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 05/29/2016 DEL BOBBIAN N Ot Z79.899 OTHER WET WASHER 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) DRUG THERAPY 05/29/2016 CHERRI PENG S FISHER SCALLOP Ot C61 MALIGNANT NEOPLASM OF PROSTATE 05/29/2016 CHERRI PENG S FISHER SCALLOP 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 05/29/2016 CHERRI PENG FISHER SCALLOP Ot Z79.899 OTHER ALF (CURRENT) DRUG THERAPY 06/05/2016 DELJESSICA GALARZA N Ot C61 MALIGNANT NEOPLASM OF PROSTATE 06/05/2016 JESSICA MATHIS N 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 06/05/2016 JESSICA MATHIS N Ot Z79.899 OTHER WET WASHER 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) DRUG THERAPY 06/05/2016 Ot 788.41 URINARY FREQUENCY 06/05/2016 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 06/05/2016 Ot V72.84 EXAM PRE-OPERATIVE NOS 06/05/2016 CHRISTIAN JOYCE, AKASH Galeano Ot V72.84 EXAM PRE-OPERATIVE NOS 06/05/2016 CHRISTIAN JOYCE, AKASH Galeano Ot 154.1 MALIGNANT NEOPL RECTUM 06/05/2016 CHRISTIAN JOYCE, AKASH Galeano 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 06/05/2016 CHRISTIAN JOYCE, AKASH Galeano Ot 562.10 DIVERTICULOSIS COLON (W/O MENT OF HEMORR 06/05/2016 CHRISTIAN JOYCE, AKASH Galeano Ot V15.3 HX OF IRRADIATION 06/05/2016 JESSICA MATHIS N 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 06/05/2016 JESSICA MATHIS N Ot 793.7 NOSP (ABN) FINDINGS ON RADIOLOGICAL OT 06/05/2016 CHERRI PENG S FISHER SCALLOP 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 06/05/2016 DEL BOBAN N 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 06/05/2016 DEL, BOBAN N 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 06/05/2016 DEL BOBAN N Ot 781.91 LOSS OF HEIGHT 06/05/2016 DEL BOBAN N 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 06/05/2016 DEL BOBAN N 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 06/05/2016 DEL BOBAN N Ot 733.90 BONE CARTILAGE DIS NOS 06/05/2016 CHERRI PENG S FISHER SCALLOP 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 06/05/2016 CHERRI PENG FISHER SCALLOP 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 06/05/2016 CHRISTIAN JOYCE, AKASH Galeano Ot 787.20 DYSPHAGIA, UNSPECIFIED 06/05/2016 CHRISTIAN JOYCE, AKASH Galeano Ot V72.84 EXAM PRE-OPERATIVE NOS 06/05/2016 CHERRI PENG S FISHER SCALLOP Ot C61 MALIGNANT NEOPLASM OF PROSTATE 06/05/2016 CHERRI PENG FISHER SCALLOP 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 06/05/2016 CHERRI PENGP Ot 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, UNSPECIFIED 06/05/2016 CHERRI PENG FISHER SCALLOP Ot R23.2 FLUSHING 06/05/2016 CHERRI PENG FISHER SCALLOP Ot Z79.899 OTHER WET WASHER 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) DRUG THERAPY 06/05/2016 JESSICA MATHIS N Ot C61 MALIGNANT NEOPLASM OF PROSTATE 06/05/2016 JESSICA MATHIS N 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 06/05/2016 JESSICA MATHIS N 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 06/05/2016 JESSICA MATHIS N Ot C61 MALIGNANT NEOPLASM OF PROSTATE 06/05/2016 JESSICA MATHIS N 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 06/05/2016 JESSICA MATHIS N Ot Z79.899 OTHER ALF (CURRENT) DRUG THERAPY 06/05/2016 CHERRI PENG FISHER SCALLOP Ot C61 MALIGNANT NEOPLASM OF PROSTATE 06/05/2016 CHERRI PENG FISHER SCALLOP 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 06/05/2016 CHERRI PENG FISHER SCALLOP Ot Z79.899 OTHER ALF (CURRENT) DRUG THERAPY 06/05/2016 JESSICA MATHIS N Ot C61 MALIGNANT NEOPLASM OF PROSTATE 06/05/2016 JESSICA MATHIS N 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 06/05/2016 JESSICA MATHIS N Ot Z79.899 OTHER WET WASHER 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) DRUG THERAPY 06/05/2016 JESSICA MATHIS N Ot C61 MALIGNANT NEOPLASM OF PROSTATE 06/05/2016 JESSICA MATHIS N 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 06/05/2016 JESSICA MATHIS N Ot Z79.899 OTHER ALF (CURRENT) DRUG THERAPY 06/06/2016 CHERRI PENG FISHER SCALLOP Ot C61 MALIGNANT NEOPLASM OF PROSTATE 06/06/2016 CHERRI PENG FISHER SCALLOP 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 06/06/2016 CHERRI PENG FISHER SCALLOP Ot Z79.899 OTHER ALF (CURRENT) DRUG THERAPY 06/15/2016 Ot 788.41 URINARY FREQUENCY 06/15/2016 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 06/15/2016 Ot V72.84 EXAM PRE-OPERATIVE NOS 06/15/2016 CHRISTIAN JOYCE, AKASH Galeano Ot V72.84 EXAM PRE-OPERATIVE NOS 06/15/2016 CHRISTIAN JOYCE, AKASH Galeano Ot 154.1 MALIGNANT NEOPL RECTUM 06/15/2016 AKASH GONZALES MD 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 06/15/2016 AKASH GONZALES MD Ot 562.10 DIVERTICULOSIS COLON (W/O MENT OF HEMORR 06/15/2016 AKASH GONZALES MD Ot V15.3 HX OF IRRADIATION 06/15/2016 DEL, BOBAN N 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 06/15/2016 DEL BOBAN N Ot 793.7 NOSP (ABN) FINDINGS ON RADIOLOGICAL OT 06/15/2016 CHERRI PENG S FISHER SCALLOP 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 06/15/2016 DEL, BOBAN N 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 06/15/2016 DEL BOBAN N 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 06/15/2016 DEL BOBAN N Ot 781.91 LOSS OF HEIGHT 06/15/2016 DEL, BOBAN N 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 06/15/2016 DEL, BOBAN N 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 06/15/2016 DEL BOBAN N Ot 733.90 BONE CARTILAGE DIS NOS 06/15/2016 CHERRI PENG S FISHER SCALLOP 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 06/15/2016 CHERRI PENG S FISHER SCALLOP 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 06/15/2016 CHRISTIAN JOYCE, AKASH Galeano Ot 787.20 DYSPHAGIA, UNSPECIFIED 06/15/2016 AKASH GONZALES MD Ot V72.84 EXAM PRE-OPERATIVE NOS 06/15/2016 CHERRI PENG S FISHER SCALLOP Ot C61 MALIGNANT NEOPLASM OF PROSTATE 06/15/2016 CHERRI PENG S FISHER SCALLOP 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 06/15/2016 CHERRI PENG S FISHER SCALLOP Ot 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, UNSPECIFIED 06/15/2016 CHERRI PENG S FISHER SCALLOP Ot R23.2 FLUSHING 06/15/2016 CHERRI PENG S FISHER SCALLOP Ot Z79.899 OTHER WET WASHER 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) DRUG THERAPY 06/15/2016 JESSICA MATHIS N Ot C61 MALIGNANT NEOPLASM OF PROSTATE 06/15/2016 JESSICA MATHIS N 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 06/15/2016 JESSICA MATHIS N 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 06/15/2016 JESSICA MATHIS N Ot C61 MALIGNANT NEOPLASM OF PROSTATE 06/15/2016 DEL JESSICA N 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 06/15/2016 JESSICA MATHIS N Ot Z79.899 OTHER ALF (CURRENT) DRUG THERAPY 06/15/2016 PENGCHERRI S FISHER SCALLOP Ot C61 MALIGNANT NEOPLASM OF PROSTATE 06/15/2016 PENGCHERRI S FISHER SCALLOP 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 06/15/2016 PENGCHERRI S FISHER SCALLOP Ot Z79.899 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 WASHER 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) DRUG THERAPY 07/23/2016 Ot 788.41 URINARY FREQUENCY 07/23/2016 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 07/23/2016 Ot V72.84 EXAM PRE-OPERATIVE NOS 07/23/2016 CHRISTIAN JOYCE, AKASH Galeano Ot V72.84 EXAM PRE-OPERATIVE NOS 07/23/2016 CHRISTIAN JOYCE, AKASH Galeano Ot 154.1 MALIGNANT NEOPL RECTUM 07/23/2016 CHRISTIAN JOYCE, AKASH Galeano 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 07/23/2016 CHRISTIAN JOYCE, AKASH Galeano Ot 562.10 DIVERTICULOSIS COLON (W/O MENT OF HEMORR 07/23/2016 CHRISTIAN JOYCE, AKASH Galeano Ot V15.3 HX OF IRRADIATION 07/23/2016 JESSICA MATHIS N 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 07/23/2016 DELJESSICA N Ot 793.7 NOSP (ABN) FINDINGS ON RADIOLOGICAL OT 07/23/2016 PENGCHERRI S FISHER SCALLOP 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 07/23/2016 DELBOBBIAN N 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 07/23/2016 DEL BOBAN N 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 07/23/2016 DEL BOBAN N Ot 781.91 LOSS OF HEIGHT 07/23/2016 DELBOBBIAN N 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 07/23/2016 DEL BOBAN N 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 07/23/2016 DELJESSICA GALARZA N Ot 733.90 BONE CARTILAGE DIS NOS 07/23/2016 CHERRI PENG S FISHER SCALLOP 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 07/23/2016 CHERRI PENG S FISHER SCALLOP 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 07/23/2016 CHRISTIAN JOYCE, AKASH Galeano Ot 787.20 DYSPHAGIA, UNSPECIFIED 07/23/2016 CHRISTIAN JOYCE, AKASH Glaeano Ot V72.84 EXAM PRE-OPERATIVE NOS 07/23/2016 CHERRI PENG S FISHER SCALLOP Ot C61 MALIGNANT NEOPLASM OF PROSTATE 07/23/2016 CHERRI PENG S FISHER SCALLOP 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 07/23/2016 CHERRI PENG S FISHER SCALLOP Ot 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, UNSPECIFIED 07/23/2016 CHERRI PENG S FISHER SCALLOP Ot R23.2 FLUSHING 07/23/2016 CHERRI PENG S FISHER SCALLOP Ot Z79.899 OTHER ALF (CURRENT) DRUG THERAPY 07/23/2016 BOBBI MATHISLUZ N Ot C61 MALIGNANT NEOPLASM OF PROSTATE 07/23/2016 DELBOBBILUZ N 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 07/23/2016 JESSICA MATHIS N 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 07/23/2016 DEL BOBBILUZ N Ot C61 MALIGNANT NEOPLASM OF PROSTATE 07/23/2016 DELJESSICA GALARZA N 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 07/23/2016 DELJESSICA GALARZA N Ot Z79.899 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 WET WASHER 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) DRUG THERAPY 07/23/2016 CHERRI PENG S FISHER SCALLOP Ot C61 MALIGNANT NEOPLASM OF PROSTATE 07/23/2016 CHERRI PENG S FISHER SCALLOP 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 07/23/2016 PENG, HILNEYMAR S FISHER SCALLOP Ot Z79.899 OTHER WET WASHER 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) DRUG THERAPY 07/23/2016 DELBOBBILUZ N Ot C61 MALIGNANT NEOPLASM OF PROSTATE 07/23/2016 DEL BOBAN N 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 07/23/2016 DELBOBBIAN N Ot Z79.899 OTHER ALF (CURRENT) DRUG THERAPY 08/24/2016 DELJESSICA N Ot C61 MALIGNANT NEOPLASM OF PROSTATE 08/24/2016 DEL, BOBAN N 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 08/24/2016 DELJESSICA N Ot Z79.899 OTHER ALF (CURRENT) DRUG THERAPY 09/14/2016 PENG CHERRI Fernandez FISHER SCALLOP 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 09/14/2016 PENG CHERRI Fernandez FISHER SCALLOP 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 10/11/2016 DELBOBBI GALARZAAN N Ot C61 MALIGNANT NEOPLASM OF PROSTATE 10/11/2016 DEL BOBAN N 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 10/11/2016 DELBOBBIAN N Ot Z79.899 OTHER ALF (CURRENT) DRUG THERAPY 10/24/2016 DEL, BOBAN N Ot C61 MALIGNANT NEOPLASM OF PROSTATE 10/24/2016 DEL, BOBAN N 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 10/24/2016 DEL BOBAN N Ot Z79.899 OTHER ALF (CURRENT) DRUG THERAPY 11/21/2016 DEL BOBAN N Ot C61 MALIGNANT NEOPLASM OF PROSTATE 11/21/2016 DEL BOBAN N 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 11/21/2016 DEL BOBAN N Ot Z79.899 OTHER WET WASHER 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) DRUG THERAPY 11/22/2016 DEL, BOBAN N Ot C61 MALIGNANT NEOPLASM OF PROSTATE 11/22/2016 DEL, BOBAN N 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 11/22/2016 DEL BOBAN N Ot Z79.899 OTHER WET WASHER 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) DRUG THERAPY 02/20/2017 DEL, BOBAN N Ot C61 MALIGNANT NEOPLASM OF PROSTATE 02/20/2017 DEL, BOBAN N 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 02/20/2017 DEL BOBAN N Ot Z79.899 OTHER WET WASHER 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) DRUG THERAPY 03/12/2017 DEL, BOBAN N Ot C61 MALIGNANT NEOPLASM OF PROSTATE 03/12/2017 DEL, BOBAN N 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 03/12/2017 DEL, BOBAN N Ot Z79.899 OTHER WET WASHER 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) DRUG THERAPY 03/13/2017 DEL, BOBAN N Ot C61 MALIGNANT NEOPLASM OF PROSTATE 03/13/2017 DEL, BOBAN N 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 03/13/2017 JESSICA MATHIS Ot Z79.899 OTHER ALF (CURRENT) DRUG THERAPY 03/14/2017 JESSICA MATHIS Ot C61 MALIGNANT NEOPLASM OF PROSTATE 03/14/2017 JESSICA MATHIS 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 03/14/2017 JESSICA MATHIS Ot Z79.899 OTHER ALF (CURRENT) DRUG THERAPY 03/14/2017 JESSICA MATHIS Ot C61 MALIGNANT NEOPLASM OF PROSTATE 03/14/2017 JESSICA MATHIS 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 03/14/2017 JESSICA MATHIS Ot Z79.899 OTHER ALF (CURRENT) DRUG THERAPY 03/19/2017 JESSICA MATHIS Ot C61 MALIGNANT NEOPLASM OF PROSTATE 03/19/2017 JESSICA MATHIS 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 03/19/2017 JESSICA MATHIS Ot Z79.899 OTHER ALF (CURRENT) DRUG THERAPY Procedures Results Test Result Range Complete urinalysis with reflex to culture - 04/04/17 13:39 Urine color determination YELLOW NRG Urine clarity determination CLEAR NRG Urine pH measurement by test strip 7 5- 9 Specific gravity of urine by test strip 1.010 1.016-1.022 Urine protein assay by test strip, semi-quantitative NEGATIVE NEGATIVE Urine glucose detection by automated test strip NEGATIVE NEGATIVE Erythrocytes detection in urine sediment by light microscopy 1+ NEGATIVE Urine ketones detection by automated test strip NEGATIVE NEGATIVE Urine nitrite detection by test strip NEGATIVE NEGATIVE Urine total bilirubin detection by test strip NEGATIVE NEGATIVE Urine urobilinogen measurement by automated test strip (mass/volume) NORMAL NORMAL Urine leukocyte esterase detection by dipstick NEGATIVE NEGATIVE Automated urine sediment erythrocyte count by microscopy (number/high power field) RARE NRG Automated urine sediment leukocyte count by microscopy (number/high power field ) NONE NRG Bacteria detection in urine sediment by light microscopy NEGATIVE NRG Squamous epithelial cells detection in urine sediment by light microscopy RARE NRG Crystals detection in urine sediment by light microscopy NONE NRG Casts detection in urine sediment by light microscopy NONE NRG Mucus detection in urine sediment by light microscopy NEGATIVE NRG Complete urinalysis with reflex to culture NO NRG Complete blood count (CBC) with automated white blood cell (WBC) differential - 04/04/17 14:08 Blood leukocytes automated count (number/volume) 4.8 10*3/ uL 4.3-11.0 Blood erythrocytes automated count (number/volume) 3.99 10*6 /uL 4.35-5.85 Venous blood hemoglobin measurement (mass/volume) 12.0 g/dL 13.3-17.7 Blood hematocrit (volume fraction) 36 % 40-54 Automated erythrocyte mean corpuscular volume 90 [foz_us] 80-99 Automated erythrocyte mean corpuscular hemoglobin (mass per erythrocyte) 30 pg 25-34 Automated erythrocyte mean corpuscular hemoglobin concentration measurement ( mass/volume) 33 g/dL 32-36 Automated erythrocyte distribution width ratio 12.3 % 10.0-14.5 Automated blood platelet count (count/volume) 279 10*3/uL 130-400 Automated blood platelet mean volume measurement 9.0 [foz_us ] 7.4-10.4 Automated blood neutrophils/100 leukocytes 59 % 42-75 Automated blood lymphocytes/100 leukocytes 24 % 12-44 Blood monocytes/100 leukocytes 11 % 0-12 Automated blood eosinophils/100 leukocytes 6 % 0-10 Automated blood basophils/100 leukocytes 1 % 0-10 Blood neutrophils automated count (number/volume) 2.8 10*3 1.8-7.8 Blood lymphocytes automated count (number/volume) 1.1 10*3 1.0-4.0 Blood monocytes automated count (number/volume) 0.5 10*3 0.0-1.0 Automated eosinophil count 0.3 10*3/uL 0.0-0.3 Automated blood basophil count (count/volume) 0.0 10*3/uL 0.0-0.1 Comprehensive metabolic panel - 04/04/17 14:08 Serum or plasma sodium measurement (moles/volume) 143 mmol/ L 135-145 Serum or plasma potassium measurement (moles/volume) 3.9 mmol/L 3.6-5.0 Serum or plasma chloride measurement (moles/volume) 108 mmol /L 98-107 Carbon dioxide 28 mmol/L 21-32 Serum or plasma anion gap determination (moles/volume) 7 mmol/L 5-14 Serum or plasma urea nitrogen measurement (mass/volume) 15 mg/dL 7-18 Serum or plasma creatinine measurement (mass/volume) 1.05 mg /dL 0.60-1.30 Serum or plasma urea nitrogen/creatinine mass ratio 14 0-20 Serum or plasma creatinine measurement with calculation of estimated glomerular filtration rate > NRG Serum or plasma glucose measurement (mass/volume) 102 mg/dL 70-105 Serum or plasma calcium measurement (mass/volume) 9.3 mg/dL 8.5-10.1 Serum or plasma total bilirubin measurement (mass/volume) 0.9 mg/dL 0.1-1.0 Serum or plasma alkaline phosphatase measurement (enzymatic activity/volume) 97 U/L 40-136 Serum or plasma aspartate aminotransferase measurement (enzymatic activity/ volume) 25 U/L 5-34 Serum or plasma alanine aminotransferase measurement (enzymatic activity/volume ) 12 U/L 0-55 Serum or plasma protein measurement (mass/volume) 6.5 g/dL 6.4-8.2 Serum or plasma albumin measurement (mass/volume) 3.8 g/dL 3.2-4.5 Encounters ACCT No. Visit Date/Time Discharge Status Pt. Type Provider Facility Loc./Unit Complaint [id number] 09/20/2014 00:00:00 09/20/2014 23: 59:59 CLS Outpatient DONAVAN ALANIZ DDS
--- OUTSIDE RECORDS SUMMARY | 2017-04-08 14:17 | XMS REPORT ---
Author Author THEE ALANIZ Organization [employer] Address Unknown Phone Unavailable Care Team Providers Care Heavy Equipment Operator Name Role Phone THEE ALANIZ CP Unavailable Allergies No Known Allergies Problems Problem Type Condition ICD-9 Code Onset Dates Condition Status Assessment Dental examination V72.2 Active Problem PPV23 (PNEUMOVAX) DX V03.82 Active Medications No Known Medications Procedures Procedure Coding System Code Date INTRAORL-PERIAPICAL 1 FILM 62441 CPT-4 D0220 Jun 07, 2015 BITEWING - SINGLE FILM CPT-4 D0270 Jun 07, 2015 LTD ORAL EVALUATION - PROBLEM FOCUS CPT-4 D0140 Jun 07, 2015 Results No Known Results Summary Purpose [employer] Submission
--- OUTSIDE RECORDS SUMMARY | 2017-04-08 14:17 | XMS REPORT ---
Author Author CAPRI LYN [facility] e[employer] Address Unknown Phone Unavailable Care Team Providers Care Zoning Administrator Name Role Phone CAPRI LYN CP Unavailable Allergies, Adverse Reactions, Alerts Substance Reaction Event Type N.K.D.A. Info Not Available Non Drug Allergy Problems Problem Type Condition Code Onset Dates Condition Status Assessment Dental examination V72.2 Active Problem PPV23 (PNEUMOVAX) DX V03.82 Active Medications Medication Code System Code Instructions Start Date End Date Status Dosage [place] [facility] [place] [id number] 5-325 MG Orally every 6 hrs Jul 06, 2015Jun 1 tablet as needed Venlafaxine HCl ER [facility] [place] [id number] not defined [facility] [id number] not defined Procedures Procedure Coding System Code Date EXTRAC ERUPTED TOOTH/EXPOSED ROOT CPT-4 D7140 Jul 06, 2015 Dental no charge CPT-4 D0099 Jul 06, 2015 BITEWING - SINGLE FILM CPT-4 D0270 Jul 06, 2015 Billing Notes on claim CPT-4 EC109 Jul 06, 2015 Vital Signs Date/Time: Jul 06, 2015 Blood Pressure Diastolic 72 mmHg Blood Pressure Systolic 147 mmHg Results No Known Results Summary Purpose [employer] Submission
--- OUTSIDE RECORDS SUMMARY | 2017-04-08 14:17 | XMS REPORT ---
Author DAINA [place] [employer] Address Unknown Phone Unavailable Care Team Providers Care Real Estate Accountant Name Role Phone DAINA DEGROOT CP Unavailable Allergies, Adverse Reactions, Alerts Substance Reaction Event Type N.K.D.A. Info Not Available Non Drug Allergy Problems Problem Type Condition Code Onset Dates Condition Status Problem PPV23 (PNEUMOVAX) DX V03.82 Active Assessment Encounter for dental examination Z01.20 Active Problem Encounter for dental examination Z01.20 Active Medications Medication Code System Code Instructions Start Date End Date Status Dosage Venlafaxine HCl ER [facility] [id number] not defined Eligard [facility] [id number] not defined Procedures Procedure Coding System Code Date Periodontal maint procedures CPT-4 D4910 Sep 21, 2015 PERIODIC ORAL EXAMINATION CPT-4 D0120 Sep 21, 2015 Vital Signs Date/Time: Sep 21, 2015 Blood Pressure Diastolic 70 mmHg Blood Pressure Systolic 140 mmHg Cardiac Monitoring Heart Rate 82 bpm Results No Known Results Summary Purpose [employer]Works Submission
--- OUTSIDE RECORDS SUMMARY | 2017-04-08 14:17 | XMS REPORT ---
Author Author DONAVAN ALANIZ Organization [employer] Address Unknown Phone Unavailable Care Team Providers Care Business Consultant Name Role Phone DONAVAN ALANIZ CP Unavailable Allergies No Known Allergies Problems Problem Type Condition ICD-9 Code Onset Dates Condition Status Assessment Dental examination V72.2 Active Problem PPV23 (PNEUMOVAX) DX V03.82 Active Medications No Known Medications Procedures Procedure Coding System Code Date Billing Notes on claim CPT-4 EC109 February 22, 2015 Results No Known Results Summary Purpose [employer] Submission
== END 2017-04-04 15:24 | disposition home or self-care (01) ==
LOC: EDUNIT# 13:22 → ER 13:24
DX: R42 Dizziness and giddiness (principal); Z85.46 Personal history of malignant neoplasm of prostate
CPT/HCPCS: 36415; 80053; 81000; 85025; 93005

== ENCOUNTER 2017-04-18 13:09 | Outpatient (RCR) | payer MEDICARE, OTHER ==
[2017-04-11 11:27] LABS: BASOPHILS # (AUTO) 0.1 10^3/uL (0.0-0.1); BASOPHILS % (AUTO) 1 % (0-10); EOSINOPHILS # (AUTO) 0.3 10^3/uL (0.0-0.3); EOSINOPHILS % (AUTO) 7 % (0-10); LYMPHOCYTES # (AUTO) 1.2 X 10^3 (1.0-4.0); LYMPHOCYTES % (AUTO) 26 % (12-44); MEAN CORPUSCULAR HEMOGLOBIN 30 PG (25-34); MEAN CORPUSCULAR HGB CONC 34 G/DL (32-36); MEAN CORPUSCULAR VOLUME 89 FL (80-99); MEAN PLATELET VOLUME 8.4 FL (7.4-10.4); MONOCYTES # (AUTO) 0.5 X 10^3 (0.0-1.0); MONOCYTES % (AUTO) 11 % (0-12); NEUTROPHILS # (AUTO) 2.5 X 10^3 (1.8-7.8); NEUTROPHILS % (AUTO) 54 % (42-75); PLATELET COUNT 305 10^3/uL (130-400); RED BLOOD COUNT 4.04 10^6/uL (4.35-5.85); RED CELL DISTRIBUTION WIDTH 12.5 % (10.0-14.5); WHITE BLOOD COUNT 4.6 10^3/uL (4.3-11.0)
[2017-04-11 11:57] LABS: ALANINE AMINOTRANSFERASE 13 U/L (0-55); ALBUMIN 4.1 GM/DL (3.2-4.5); ANION GAP 10 MMOL/L (5-14); ASPARTATE AMINO TRANSFERASE 24 U/L (5-34); BLOOD UREA NITROGEN 11 MG/DL (7-18); BUN/CREATININE RATIO 13; CALCIUM 9.4 MG/DL (8.5-10.1); CARBON DIOXIDE 26 MMOL/L (21-32); CHLORIDE 107 MMOL/L (98-107); CREATININE SERUM 0.85 MG/DL (0.60-1.30); GFR ESTIMATED > 60; GLUCOSE 93 MG/DL (70-105); POTASSIUM 4.1 MMOL/L (3.6-5.0); SODIUM 143 MMOL/L (135-145); TOTAL PROTEIN 6.8 GM/DL (6.4-8.2)
[2017-04-18] MEDS ORDERED: LEUPROLIDE ACETATE 30 MG SQ SCH (14:18)
[2017-04-18 14:53] LABS: BILIRUBIN,URINE NEGATIVE (NEGATIVE); KETONES,URINE NEGATIVE (NEGATIVE); LEUKOCYTE ESTERASE ,URINE NEGATIVE (NEGATIVE); NITRITE,URINE NEGATIVE (NEGATIVE); PH,URINE 5 (5-9); PROTEIN,URINE NEGATIVE (NEGATIVE); UROBILINOGEN,URINE NORMAL (NORMAL)
[2017-04-18 15:04] LABS: SQUAMOUS EPITHELIAL CELL,UR 0-2 /HPF; WBC,URINE RARE /HPF
== END 2017-07-10 | disposition home or self-care (01) ==
LOC: ONC 13:09
PROVIDERS: ATTEND Internal Medicine Hematology & Oncology
DX: C61 Malignant neoplasm of prostate (principal); C79.51 Secondary malignant neoplasm of bone; Z79.899 Other long term (current) drug therapy
CPT/HCPCS: 36415; 80053; 81000; 82306; 84153; 85025; 96402

== ENCOUNTER 2017-08-08 10:37 | Outpatient (RCR) | payer MEDICARE, OTHER ==
[2017-08-01 11:50] LABS: BASOPHILS # (AUTO) 0.1 10^3/uL (0.0-0.1); BASOPHILS % (AUTO) 2 % (0-10); EOSINOPHILS # (AUTO) 0.4 10^3/uL (0.0-0.3); EOSINOPHILS % (AUTO) 7 % (0-10); HEMATOCRIT 36 % (40-54); LYMPHOCYTES # (AUTO) 1.5 X 10^3 (1.0-4.0); LYMPHOCYTES % (AUTO) 26 % (12-44); MEAN CORPUSCULAR HEMOGLOBIN 30 PG (25-34); MEAN CORPUSCULAR HGB CONC 33 G/DL (32-36); MEAN CORPUSCULAR VOLUME 90 FL (80-99); MEAN PLATELET VOLUME 8.5 FL (7.4-10.4); MONOCYTES # (AUTO) 0.6 X 10^3 (0.0-1.0); MONOCYTES % (AUTO) 10 % (0-12); NEUTROPHILS % (AUTO) 55 % (42-75); PLATELET COUNT 277 10^3/uL (130-400); RED BLOOD COUNT 4.03 10^6/uL (4.35-5.85); WHITE BLOOD COUNT 5.5 10^3/uL (4.3-11.0)
[2017-08-01 12:13] LABS: ALANINE AMINOTRANSFERASE 11 U/L (0-55); ALKALINE PHOSPHATASE 101 U/L (40-136); BUN/CREATININE RATIO 18; CALCIUM 9.6 MG/DL (8.5-10.1); CARBON DIOXIDE 30 MMOL/L (21-32); CHLORIDE 107 MMOL/L (98-107); CREATININE SERUM 0.82 MG/DL (0.60-1.30); GFR ESTIMATED > 60; GLUCOSE 90 MG/DL (70-105); POTASSIUM 4.3 MMOL/L (3.6-5.0); SODIUM 142 MMOL/L (135-145); TOTAL PROTEIN 6.9 GM/DL (6.4-8.2)
[~2017-08-08 10:37] MED LIST changes: +LEUPROLIDE ACETATE 30 MG SQ SCH
== END 2017-10-30 | disposition home or self-care (01) ==
LOC: ONC 10:37
PROVIDERS: ATTEND Internal Medicine Hematology & Oncology
DX: C61 Malignant neoplasm of prostate (principal); C79.51 Secondary malignant neoplasm of bone; Z79.899 Other long term (current) drug therapy
CPT/HCPCS: 36415; 80053; 84153; 85025; 96402

== ENCOUNTER 2017-12-26 13:08 | Outpatient (RCR) | payer MEDICARE, OTHER ==
[2017-11-21 11:47] LABS: BASOPHILS # (AUTO) 0.1 10^3/uL (0.0-0.1); BASOPHILS % (AUTO) 1 % (0-10); EOSINOPHILS # (AUTO) 0.4 10^3/uL (0.0-0.3); EOSINOPHILS % (AUTO) 7 % (0-10); HEMATOCRIT 38 % (40-54); HEMOGLOBIN 13.1 G/DL (13.3-17.7); LYMPHOCYTES # (AUTO) 1.6 X 10^3 (1.0-4.0); LYMPHOCYTES % (AUTO) 26 % (12-44); MEAN CORPUSCULAR HEMOGLOBIN 31 PG (25-34); MEAN CORPUSCULAR HGB CONC 34 G/DL (32-36); MEAN CORPUSCULAR VOLUME 90 FL (80-99); MEAN PLATELET VOLUME 8.7 FL (7.4-10.4); MONOCYTES # (AUTO) 0.6 X 10^3 (0.0-1.0); MONOCYTES % (AUTO) 10 % (0-12); NEUTROPHILS # (AUTO) 3.5 X 10^3 (1.8-7.8); NEUTROPHILS % (AUTO) 56 % (42-75); PLATELET COUNT 309 10^3/uL (130-400); RED BLOOD COUNT 4.28 10^6/uL (4.35-5.85); RED CELL DISTRIBUTION WIDTH 11.8 % (10.0-14.5); WHITE BLOOD COUNT 6.2 10^3/uL (4.3-11.0)
[2017-11-21 12:07] LABS: ALANINE AMINOTRANSFERASE 12 U/L (0-55); ALBUMIN 4.3 GM/DL (3.2-4.5); ALKALINE PHOSPHATASE 97 U/L (40-136); BUN/CREATININE RATIO 14; CALCIUM 10.1 MG/DL (8.5-10.1); CARBON DIOXIDE 28 MMOL/L (21-32); CHLORIDE 105 MMOL/L (98-107); CREATININE SERUM 1.02 MG/DL (0.60-1.30); GFR ESTIMATED > 60; GLUCOSE 90 MG/DL (70-105); POTASSIUM 4.1 MMOL/L (3.6-5.0); SODIUM 142 MMOL/L (135-145); TOTAL PROTEIN 7.4 GM/DL (6.4-8.2)
[2017-12-24 10:52] LABS: BASOPHILS # (AUTO) 0.1 10^3/uL (0.0-0.1); BASOPHILS % (AUTO) 2 % (0-10); EOSINOPHILS # (AUTO) 0.4 10^3/uL (0.0-0.3); EOSINOPHILS % (AUTO) 9 % (0-10); HEMATOCRIT 37 % (40-54); HEMOGLOBIN 12.5 G/DL (13.3-17.7); LYMPHOCYTES # (AUTO) 1.2 X 10^3 (1.0-4.0); LYMPHOCYTES % (AUTO) 27 % (12-44); MEAN CORPUSCULAR HEMOGLOBIN 30 PG (25-34); MEAN CORPUSCULAR HGB CONC 34 G/DL (32-36); MEAN CORPUSCULAR VOLUME 90 FL (80-99); MEAN PLATELET VOLUME 8.7 FL (7.4-10.4); MONOCYTES # (AUTO) 0.4 X 10^3 (0.0-1.0); MONOCYTES % (AUTO) 10 % (0-12); NEUTROPHILS # (AUTO) 2.4 X 10^3 (1.8-7.8); NEUTROPHILS % (AUTO) 53 % (42-75); PLATELET COUNT 268 10^3/uL (130-400); RED BLOOD COUNT 4.15 10^6/uL (4.35-5.85); RED CELL DISTRIBUTION WIDTH 12.1 % (10.0-14.5); WHITE BLOOD COUNT 4.5 10^3/uL (4.3-11.0)
[2017-12-24 11:08] LABS: BILIRUBIN,TOTAL 0.7 MG/DL (0.1-1.0); CALCIUM 9.5 MG/DL (8.5-10.1); CREATININE SERUM 1.19 MG/DL (0.60-1.30); TOTAL PROTEIN 6.7 GM/DL (6.4-8.2)
== END 2018-02-19 | disposition home or self-care (01) ==
LOC: ONC 13:08
PROVIDERS: ATTEND Internal Medicine Hematology & Oncology
DX: C61 Malignant neoplasm of prostate (principal); C79.51 Secondary malignant neoplasm of bone; Z79.899 Other long term (current) drug therapy
CPT/HCPCS: 36415; 80053; 84153; 85025; 96402; 99213

== ENCOUNTER 2018-06-26 10:59 | Outpatient (RCR) | payer MEDICARE, OTHER ==
[~2018-06-26 10:59] MED LIST changes: -LEUPROLIDE ACETATE 30 MG SQ SCH
[2018-06-26 11:14] LABS: BASOPHILS % (AUTO) 1 % (0-10); EOSINOPHILS # (AUTO) 0.4 10^3/uL (0.0-0.3); EOSINOPHILS % (AUTO) 8 % (0-10); HEMATOCRIT 37 % (40-54); HEMOGLOBIN 12.5 G/DL (13.3-17.7); LYMPHOCYTES # (AUTO) 1.1 X 10^3 (1.0-4.0); LYMPHOCYTES % (AUTO) 23 % (12-44); MEAN CORPUSCULAR HEMOGLOBIN 30 PG (25-34); MEAN CORPUSCULAR HGB CONC 34 G/DL (32-36); MEAN CORPUSCULAR VOLUME 89 FL (80-99); MEAN PLATELET VOLUME 8.9 FL (7.4-10.4); MONOCYTES # (AUTO) 0.4 X 10^3 (0.0-1.0); MONOCYTES % (AUTO) 9 % (0-12); NEUTROPHILS # (AUTO) 2.8 X 10^3 (1.8-7.8); NEUTROPHILS % (AUTO) 59 % (42-75); PLATELET COUNT 286 10^3/uL (130-400); RED BLOOD COUNT 4.12 10^6/uL (4.35-5.85); RED CELL DISTRIBUTION WIDTH 12.1 % (10.0-14.5); WHITE BLOOD COUNT 4.7 10^3/uL (4.3-11.0)
[2018-06-26 11:31] LABS: ALANINE AMINOTRANSFERASE 9 U/L (0-55); ALBUMIN 4.2 GM/DL (3.2-4.5); ALKALINE PHOSPHATASE 93 U/L (40-136); BILIRUBIN,TOTAL 1.3 MG/DL (0.1-1.0); BUN/CREATININE RATIO 16; CALCIUM 9.4 MG/DL (8.5-10.1); CARBON DIOXIDE 25 MMOL/L (21-32); CHLORIDE 107 MMOL/L (98-107); CREATININE SERUM 0.86 MG/DL (0.60-1.30); GFR ESTIMATED > 60; GLUCOSE 89 MG/DL (70-105); MAGNESIUM 2.3 MG/DL (1.8-2.4); POTASSIUM 4.1 MMOL/L (3.6-5.0); SODIUM 141 MMOL/L (135-145); TOTAL PROTEIN 6.6 GM/DL (6.4-8.2)
== END 2018-07-02 15:58 | disposition home or self-care (01) ==
LOC: ONC 10:59
PROVIDERS: ATTEND Internal Medicine Hematology & Oncology
DX: C61 Malignant neoplasm of prostate (principal); C79.51 Secondary malignant neoplasm of bone; Z79.899 Other long term (current) drug therapy
CPT/HCPCS: 36415; 80053; 82306; 83735; 84153; 85025

== ENCOUNTER → 2018-06-30 | Outpatient (CLI) | payer MEDICARE, OTHER ==
--- NOTE | 2018-06-30 12:39 | Diagnostic Imaging Report ---
INDICATION: Neck pain. COMPARISON: None. FINDINGS: Frontal, lateral, and open-mouth views of the cervical spine were obtained. Cervical spine is viewed down to the C7-T1 level on the lateral view. Evaluation of static alignment demonstrates slight grade 1 anterolisthesis at the C4-C5 and C7-T1 levels. There is no evidence of jumped facets. Open-mouth view demonstrates normal C1-C2 alignment. Vertebral body heights are maintained. There is no evidence of acute fracture. There are moderate multilevel degenerative changes consisting of intervertebral disc height loss with anterior and posterior disc osteophyte complex formations and multilevel facet arthropathy. These changes appear greatest at the C4-C5 through C6-C7 levels. Surrounding soft tissue structures are unremarkable. Note is made of calcified carotid atherosclerosis. IMPRESSION: 1. Moderate multilevel degenerative changes of cervical spine. 2. No acute fracture or dislocation. Dictated by: Dictated on workstation # [id number]
--- NOTE | 2018-06-30 15:47 | Diagnostic Imaging Report ---
INDICATION: Back pain EXAM: Lumbar spine FINDINGS: AP and lateral views of the lumbar spine show normal vertebral body height and alignment. There is complete loss at the L5-S1 disc space with vacuum disc phenomena present. There are large anterior bridging osteophytes throughout the lumbar spine. IMPRESSION: Spondylosis deformans. Advanced degenerative disc changes at L5-S1. Dictated by: Dictated on workstation # [id number]
--- NOTE | 2018-06-30 16:25 | Diagnostic Imaging Report ---
INDICATION: Back pain. Thoracic spine. FINDINGS: AP and lateral views of the thoracic spine show anterior bridging osteophytes at multiple levels in the thoracic spine and multiple large osteophytes in the upper lumbar spine. There are no compression fractures. Alignment is normal. Disc spaces are normal. IMPRESSION: Diffuse idiopathic skeletal hyperostosis. No acute abnormality seen. Dictated by: Dictated on workstation # [id number]
== END ==
LOC: RAD 10:09
PROVIDERS: ATTEND Chiropractor
DX: M47.812 Spondylosis without myelopathy or radiculopathy, cervical region (principal); M47.816 Spondylosis without myelopathy or radiculopathy, lumbar region; M51.37 Other intervertebral disc degeneration, lumbosacral region; M48.14 Ankylosing hyperostosis [Forestier], thoracic region; M99.01 Segmental and somatic dysfunction of cervical region; M99.02 Segmental and somatic dysfunction of thoracic region; M99.03 Segmental and somatic dysfunction of lumbar region
CPT/HCPCS: 72040; 72070; 72100

== ENCOUNTER 2018-07-03 13:38 | Outpatient (RCR) | payer MEDICARE, OTHER ==
[~2018-07-03 13:38] MED LIST changes: +LEUPROLIDE ACETATE 30 MG SQ SCH
== END 2018-07-13 | disposition home or self-care (01) ==
LOC: ONC 13:38
PROVIDERS: ATTEND Internal Medicine Hematology & Oncology
DX: C61 Malignant neoplasm of prostate (principal); C79.51 Secondary malignant neoplasm of bone; Z79.899 Other long term (current) drug therapy
CPT/HCPCS: 96402

== ENCOUNTER → 2018-07-08 | Outpatient (CLI) | payer MEDICARE, OTHER ==
[~2018-07-08] MED LIST changes: +BARIUM SUSPENSION 2.1% (VANILLA SILQ) 450 ML PO ONE; +CATHETER FLUSH 10 ML SYR IV PRN; +IOHEXOL 350 MG/ML 100 ML (OMNIPAQUE 350) VIAL IV ONE; -LEUPROLIDE ACETATE 30 MG SQ SCH; +NS 250 ML (IVPB) BAG IV ONE
--- NOTE | 2018-07-08 15:59 | Diagnostic Imaging Report ---
PROCEDURE: CT chest with contrast, CT abdomen and pelvis with and without contrast. INDICATION: Metastatic prostate carcinoma. On treatment. TECHNIQUE: CT imaging of the abdomen and pelvis before as well as the chest, abdomen and pelvis following the administration of intravenous contrast. CORRELATION STUDY: CT chest of 08/16/2014, CT abdomen and pelvis of 02/10/2016. FINDINGS: CT CHEST: Tiny, 5 mm low-density foci in the right lobe of the thyroid gland, nonspecific, but likely stable and of no significance. Few very small mediastinal lymph nodes are present. Heart size is normal. Moderate severity of coronary artery calcification. Thoracic aorta with mild wall calcification, nonaneurysmal. Some contrast within the esophagus could be reflective of esophageal dysmotility versus reflux. 20 x 14 x 16 mm mass is present in the central aspect of the right upper lobe. This is adversely changed from prior study. There are multiple surrounding prominent vessels. Several additional small nodules are present, overall likely relatively stable. No pulmonary infiltrate. Chronic multilevel degenerative changes with bridging osteophytes of the thoracic spine. CT ABDOMEN and PELVIS: Liver, spleen, gallbladder, pancreas, and adrenal glands appearing unchanged and unremarkable. 4.5 cm cyst in the superior pole of the left kidney. Additional smaller cyst in the inferior pole of the left kidney. Kidneys and collecting systems are otherwise unremarkable. There is [id number] wall calcification of the abdominal aorta. There is prominent calcification, particularly at the origin of the superior mesenteric artery. Gastrointestinal tract with moderate severity of fecal retention. No obstruction or inflammation. Normal appendix in the right lower quadrant may contain small appendicolith. Colonic diverticulosis without evidence for acute diverticulitis. No pathologically enlarged central retroperitoneal, mesenteric, and/or pelvic lymph nodes. Penile prosthesis with reservoir in the right hemipelvis remains present. There is abnormal soft tissue density at the posterior bladder base and inseparable from the right aspect of the seminal vesicles. This is more prominent from prior study measuring 3.5 x 3.1 cm, previously, perhaps approximately 2.8 x 2.3 cm. There is some loss of the fat plane between this area and the anterior rightward margins of the rectum. Osseous structures appear generally stable with a few scattered probable small bone islands and hemangiomas. Multilevel degenerative changes are present about the spine. IMPRESSION: CT CHEST: 1. Nearly 2 cm mass in the right upper lobe, adversely changed from prior study. Findings are concerning for neoplasm, either primary lung neoplasm versus metastasis. 2. Moderate severity of coronary artery calcification. 3. Esophageal dysmotility versus potential reflux disease. Slight wall thickening of the lower esophagus with small hiatal hernia. CT ABDOMEN and PELVIS: 1. Increasing soft tissue mass-like density, inseparable from the posterior right margins of the bladder base and seminal vesicles which also blurs inseparably with the anterior margins of the rectum. This appears more prominent from prior study, raising concern for potential neoplasm. 2. No definitive pathologically enlarged abdominopelvic lymphadenopathy. No espinoza bony lytic or sclerotic changes. Dictated by: Dictated on workstation # [id number]
--- NOTE | 2018-07-08 16:02 | Diagnostic Imaging Report ---
INDICATION: Prostate cancer. TECHNIQUE: The patient was administered 25.50 mCi technetium 99m MDP. Anterior and posterior whole-body planar images are obtained. CORRELATION STUDY: 02/10/2016. FINDINGS: There is somewhat of more distorted appearance about the uptake within the urinary bladder. This does limit assessment over the sacrum and pelvis. Given this, no new radiotracer accumulation to suggest osseous metastatic disease. Likely degenerative-type uptake about the left basilar aspect of the cervical spine. IMPRESSION: 1. Overall, likely relatively stable negative-appearing bone scan. 2. Evaluation of the pelvis, particularly the sacrum, is limited by somewhat distorted uptake over the urinary bladder. 3. Uptake about the base of the cervical spine on the left aspect, likely degenerative in nature. Correlation with symptoms. Dictated by: Dictated on workstation # [id number]
== END ==
LOC: CARD 12:04
PROVIDERS: ATTEND Internal Medicine Hematology & Oncology
DX: C61 Malignant neoplasm of prostate (principal); C79.51 Secondary malignant neoplasm of bone; C78.5 Secondary malignant neoplasm of large intestine and rectum
CPT/HCPCS: 71260; 74178; 78306

== ENCOUNTER → 2018-08-06 | Outpatient (CLI) | payer MEDICARE, OTHER ==
[~2018-08-06] MED LIST changes: -BARIUM SUSPENSION 2.1% (VANILLA SILQ) 450 ML PO ONE; -CATHETER FLUSH 10 ML SYR IV PRN; -IOHEXOL 350 MG/ML 100 ML (OMNIPAQUE 350) VIAL IV ONE; -NS 250 ML (IVPB) BAG IV ONE
--- NOTE | 2018-08-06 19:08 | Diagnostic Imaging Report ---
Clinical indication: Patient with balance issues and headache and dizziness. Patient has history of prostate cancer with lung metastasis. Exam: Axial CT scan of the brain performed without IV contrast. Comparison: None. Findings: There is no evidence of acute cerebral infarct, intracranial hemorrhage, or gross mass effect. There are focal and patchy areas of low-attenuation white matter changes seen throughout both cerebral hemispheres, representing chronic small vessel ischemic disease. There is diffuse brain parenchymal volume loss with the temporal lobes affected the most. There is normal yeung-white matter distinction. There is no significant midline shift or herniation. There is no evidence of hydrocephalus. The basal cisterns are unremarkable. There is a bony defect involving the medial right orbital wall with orbital fat protruding into the right ethmoid sinus region. Otherwise, the skull, extracranial soft tissue, and orbits are unremarkable. There is mild mucosal thickening involving the ethmoid sinus. Temporal bones show no significant abnormality. Impression: 1: There is no evidence of acute intracranial process. 2: Diffuse chronic small vessel ischemic disease and brain parenchymal volume loss. Dictated by: Dictated on workstation # [id number]
== END ==
LOC: RAD 12:16
PROVIDERS: ATTEND Internal Medicine
DX: C61 Malignant neoplasm of prostate (principal); C78.00 Secondary malignant neoplasm of unspecified lung; I67.82 Cerebral ischemia; R51 Headache
CPT/HCPCS: 70450

== ENCOUNTER → 2018-08-21 | Outpatient (CLI) | payer MEDICARE, OTHER ==
[2018-08-21 14:28] LABS: BILIRUBIN,URINE NEGATIVE (NEGATIVE); CLARITY,URINE VERY CLOUDY; COLOR,URINE YELLOW; GLUCOSE, URINE (UA) NEGATIVE (NEGATIVE); KETONES,URINE NEGATIVE (NEGATIVE); LEUKOCYTE ESTERASE ,URINE 3+ (NEGATIVE); NITRITE,URINE NEGATIVE (NEGATIVE); PH,URINE 7 (5-9); PROTEIN,URINE 2+ (NEGATIVE); UROBILINOGEN,URINE NORMAL (NORMAL)
[2018-08-21 14:40] LABS: RBC,URINE 25-50 /HPF
[2018-08-21 14:41] LABS: BACTERIA,URINE FEW /HPF; SQUAMOUS EPITHELIAL CELL,UR RARE /HPF; WBC,URINE >100 /HPF
== END ==
LOC: LAB 13:53
PROVIDERS: ATTEND Internal Medicine
DX: R31.9 Hematuria, unspecified (principal); R82.90 Unspecified abnormal findings in urine
CPT/HCPCS: 81000; 87088

== ENCOUNTER → 2018-10-20 | Outpatient (RCR) | payer MEDICARE, OTHER ==
[2018-09-03 13:34] LABS: BASOPHILS # (AUTO) 0.1 10^3/uL (0.0-0.1); BASOPHILS % (AUTO) 1 % (0-10); EOSINOPHILS # (AUTO) 0.5 10^3/uL (0.0-0.3); EOSINOPHILS % (AUTO) 6 % (0-10); HEMATOCRIT 37 % (40-54); HEMOGLOBIN 12.3 G/DL (13.3-17.7); LYMPHOCYTES # (AUTO) 1.5 X 10^3 (1.0-4.0); LYMPHOCYTES % (AUTO) 20 % (12-44); MEAN CORPUSCULAR HEMOGLOBIN 30 PG (25-34); MEAN CORPUSCULAR HGB CONC 33 G/DL (32-36); MEAN CORPUSCULAR VOLUME 91 FL (80-99); MEAN PLATELET VOLUME 8.7 FL (7.4-10.4); MONOCYTES # (AUTO) 0.6 X 10^3 (0.0-1.0); MONOCYTES % (AUTO) 9 % (0-12); NEUTROPHILS # (AUTO) 4.7 X 10^3 (1.8-7.8); NEUTROPHILS % (AUTO) 64 % (42-75); PLATELET COUNT 287 10^3/uL (130-400); RED CELL DISTRIBUTION WIDTH 12.3 % (10.0-14.5); WHITE BLOOD COUNT 7.3 10^3/uL (4.3-11.0)
[2018-09-03 13:49] LABS: ALANINE AMINOTRANSFERASE 10 U/L (0-55); ALKALINE PHOSPHATASE 93 U/L (40-136); BUN/CREATININE RATIO 15; CALCIUM 9.4 MG/DL (8.5-10.1); CARBON DIOXIDE 30 MMOL/L (21-32); CHLORIDE 106 MMOL/L (98-107); GFR ESTIMATED > 60; GLUCOSE 109 MG/DL (70-105); SODIUM 144 MMOL/L (135-145); TOTAL PROTEIN 6.6 GM/DL (6.4-8.2)
[2018-10-16 15:00] LABS: BASOPHILS # (AUTO) 0.1 10^3/uL (0.0-0.1); BASOPHILS % (AUTO) 1 % (0-10); EOSINOPHILS # (AUTO) 0.4 10^3/uL (0.0-0.3); EOSINOPHILS % (AUTO) 8 % (0-10); HEMATOCRIT 38 % (40-54); HEMOGLOBIN 12.4 G/DL (13.3-17.7); LYMPHOCYTES # (AUTO) 1.2 X 10^3 (1.0-4.0); LYMPHOCYTES % (AUTO) 22 % (12-44); MEAN CORPUSCULAR HEMOGLOBIN 30 PG (25-34); MEAN CORPUSCULAR HGB CONC 33 G/DL (32-36); MEAN CORPUSCULAR VOLUME 91 FL (80-99); MEAN PLATELET VOLUME 8.8 FL (7.4-10.4); MONOCYTES # (AUTO) 0.5 X 10^3 (0.0-1.0); MONOCYTES % (AUTO) 9 % (0-12); NEUTROPHILS # (AUTO) 3.4 X 10^3 (1.8-7.8); NEUTROPHILS % (AUTO) 60 % (42-75); PLATELET COUNT 308 10^3/uL (130-400); RED BLOOD COUNT 4.17 10^6/uL (4.35-5.85); RED CELL DISTRIBUTION WIDTH 12.4 % (10.0-14.5); WHITE BLOOD COUNT 5.6 10^3/uL (4.3-11.0)
[2018-10-16 15:18] LABS: ALANINE AMINOTRANSFERASE 8 U/L (0-55); ALBUMIN 3.9 GM/DL (3.2-4.5); ALKALINE PHOSPHATASE 107 U/L (40-136); BILIRUBIN,TOTAL 0.6 MG/DL (0.1-1.0); BUN/CREATININE RATIO 16; CALCIUM 9.1 MG/DL (8.5-10.1); CARBON DIOXIDE 30 MMOL/L (21-32); CHLORIDE 106 MMOL/L (98-107); CREATININE SERUM 0.93 MG/DL (0.60-1.30); GFR ESTIMATED > 60; GLUCOSE 105 MG/DL (70-105); SODIUM 143 MMOL/L (135-145); TOTAL PROTEIN 6.6 GM/DL (6.4-8.2)
[~2018-10-20] MED LIST changes: +ASPI-983 PO; +ENZA40CA PO; +GABA-488 PO; +LEUPROLIDE ACETATE 30 MG SQ SCH
== END | disposition home or self-care (01) ==
LOC: ONC 07-22 10:29
PROVIDERS: ATTEND Internal Medicine Hematology & Oncology
DX: C61 Malignant neoplasm of prostate (principal); C79.51 Secondary malignant neoplasm of bone; C78.5 Secondary malignant neoplasm of large intestine and rectum
CPT/HCPCS: 36415; 80053; 82306; 83735; 84153; 85025; 96402; 99213

== ENCOUNTER 2018-10-21 03:21 | Observation (INO) | payer MEDICARE, OTHER ==
[~2018-10-21] VITALS: Ht 170.2 cm; Wt 74.4 kg
[~2018-10-21 03:21] MED LIST changes: -ASPI-983 PO; -ENZA40CA PO; -GABA-488 PO; -LEUPROLIDE ACETATE 30 MG SQ SCH
--- OUTSIDE RECORDS SUMMARY | 2018-10-21 03:30 | XMS REPORT ---
Author Author DAINA DEGROOT [facility] Address [address] [place] [address] Care Team Providers Care Luncheonette Manager Name Role Phone DAINA DEGROOT Unavailable PROBLEMS Type Condition ICD9-CM Code [id number] Code Onset Dates Condition Status SNOMED Code Problem Encounter for dental examination Z01.20 Active 606406996 Problem PPV23 (PNEUMOVAX) DX V03.82 Active ALLERGIES Substance Reaction Event Type Date Status N.K.D.A. Unknown Non Drug Allergy Oct, Unknown SOCIAL HISTORY No smoking Hx information available PLAN OF CARE Activity Details Follow Up 6 Months Reason:Recall VITAL SIGNS Heart Rate 83 bpm 2016-11-09 Blood pressure systolic 137 mmHg 2016-11-09 Blood pressure diastolic 81 mmHg 2016-11-09 MEDICATIONS Medication Instructions Dosage Frequency Start Date End Date Duration Status Venlafaxine HCl ER Active Eligard Active Gabapentin 300 MG Orally Three times a day 1 capsule 8h Active RESULTS No Results PROCEDURES Procedure Date Ordered Related Diagnosis Body Site PERIODIC ORAL EXAMINATION Nov 09, 2016 PROPHYLAXIS - ADULT Nov 09, 2016 IMMUNIZATIONS No Known Immunizations
--- OUTSIDE RECORDS SUMMARY | 2018-10-21 03:34 | XMS REPORT | Continuity of Care Document ---
Author Author [facility] Address Unknown Phone Unavailable Allergies Active Description Code Type Severity Reaction Onset Reported/Identified Relationship to Patient Clinical Status Yes No Known Drug Allergies [id number] Drug Allergy Unknown N/A 12/23/2012 Medications There is no data. 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 08/16/2014 UNIQUE JOYCE, AGNES Galeano Ot 597.0 URETHRAL ABSCESS 08/16/2014 AGNES CALHOUN MD Ot 599.0 URIN TRACT INFECTION NOS 08/30/2014 Ot 788.41 08/30/2014 Ot 185 08/30/2014 Ot V72.84 08/30/2014 CHRISTIAN JOYCE, AKASH Galeano Ot V72.84 08/30/2014 CHRISTIAN JOYCE, AKASH Galeano Ot 154.1 08/30/2014 CHRISTIAN JOYCE, AKASH Galeano Ot 185 08/30/2014 AKASH GONZALES MD Ot 562.10 08/30/2014 AKASH GONZALES MD Ot V15.3 08/30/2014 JESSICA MATHIS N Ot 185 09/16/2014 DONAVAN ALANIZ DDS V03.82 PCV-13 (PREVNAR) DX 09/27/2014 JESSICA MATHIS N Ot 185 09/27/2014 DELJESSICA GALARZA N Ot 793.7 10/11/2014 CHRISTIAN JOYCE, AKASH Galeano Ot 154.1 10/11/2014 CHRISTIAN JOYCE, AKASH Galeano Ot 185 10/11/2014 CHRISTIAN JOYCE, AKASH Galeano Ot 562.10 10/11/2014 AKASH GONZALES MD Ot V15.3 10/18/2014 JESSICA MATHIS N Ot 185 10/18/2014 DELJESSICA GALARZA N Ot 793.7 10/18/2014 DELJESSICA GALARZA N Ot 185 10/22/2014 CHRISTIAN JOYCE, AKASH Galeano Ot 154.1 10/22/2014 CHRISTIAN JOYCE, AKASH Galeano Ot 185 10/22/2014 CHRISTIAN JOYCE, AKASH Galeano Ot 562.10 10/22/2014 CHRISTIAN JOYCE, AKASH Galeano Ot V15.3 10/22/2014 DELJESSICA GALARZA N Ot 185 11/03/2014 CHERRI PENG SWAT TEAM MEMBER Ot 185 11/08/2014 CHERRI PEGN SWAT TEAM MEMBER Ot 185 11/11/2014 BJ JOYCE, HALIE Jensen Ot 823.00 FX UPPER END TIBIA-CLOSE 11/11/2014 HALIE LORENZO MD Ot 959.7 LOWER LEG INJURY NOS 11/11/2014 HALIE LORENZO MD Ot E000.8 OTHER EXTERNAL CAUSE STATUS 11/11/2014 HALIE LORENZO MD Ot E016.9 OTH ACT INVG PROPERTY LAND MAINT,BUILD 11/11/2014 HALIE LORENZO MD Ot E917.9 STRUCK BY OBJ/PERSON NEC 11/21/2014 JESSICA MATHIS N 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 02/09/2015 DELJESSICA GALARZA N Ot 185 02/09/2015 DELJESSICA GALARZA N Ot V58.69 02/16/2015 Ot 788.41 02/16/2015 Ot 185 02/16/2015 Ot V72.84 02/16/2015 CHRISTIAN JOYCE, AKASH Galeano Ot V72.84 02/16/2015 CHRISTIAN JOYCE, AKASH Galeano Ot 154.1 02/16/2015 CHRISTIAN JOYCE, AKASH Galeano Ot 185 02/16/2015 CHRISTIAN JOYCE, AKASH Galeano Ot 562.10 02/16/2015 CHRISTIAN JOYCE, AKASH Galeano Ot V15.3 02/16/2015 DELJESSICA GALARZA N Ot 185 02/16/2015 DELBOBBI GALARZAAN N Ot 793.7 02/16/2015 CHERRI PENG SWAT TEAM MEMBER Ot 185 02/16/2015 DEL, BOBAN N Ot [...] N Ot 793.7 02/24/2015 CHERRI PENG S SWAT TEAM MEMBER Ot 185 02/24/2015 DEL, BOBAN N Ot [...] N Ot 793.7 02/24/2015 CHERRI PENG S SWAT TEAM MEMBER Ot 185 02/24/2015 DEL, BOBAN N Ot [...] 03/02/2015 DEL, BOBAN N Ot 793.7 03/02/2015 VITOR PENGAH S SWAT TEAM MEMBER Ot 185 03/02/2015 DEL, BOBAN N Ot [...] DEL, BOBAN N Ot 793.7 03/25/2015 CHERRI PENG Ot 185 03/25/2015 DEL, BOBAN N Ot 185 03/25/2015 DEL, BOBAN N Ot 198.5 03/25/2015 DEL, BOBAN N Ot 781.91 03/25/2015 DEL, BOBAN N Ot 185 03/25/2015 DEL, BOBAN N Ot 198.5 03/25/2015 DEL, BOBAN N Ot 733.90 03/25/2015 PENG, HILAH S SWAT TEAM MEMBER Ot 185 03/25/2015 PENG, HILAH S SWAT TEAM MEMBER Ot 198.5 03/25/2015 DEL, BOBAN N Ot [...] N Ot 793.7 04/06/2015 PENG, VITORAH S SWAT TEAM MEMBER Ot 185 04/06/2015 DEL, BOBAN N Ot 185 04/06/2015 DEL, BOBAN N Ot 198.5 04/06/2015 DEL, BOBAN N Ot 781.91 04/06/2015 DEL, BOBAN N Ot 185 04/06/2015 DEL, BOBAN N Ot 198.5 04/06/2015 DEL, BOBAN N Ot 733.90 04/06/2015 PENG, VITORAH S SWAT TEAM MEMBER Ot 185 04/06/2015 PENG, VITORAH S SWAT TEAM MEMBER Ot 198.5 04/06/2015 DEL, BOBAN N Ot 185 04/06/2015 DEL, BOBAN N Ot V58.69 04/06/2015 PENG, HILAH S SWAT TEAM MEMBER Ot 185 04/06/2015 PENG, HILAH S SWAT TEAM MEMBER Ot 198.5 04/26/2015 PENG, HILAH S SWAT TEAM MEMBER Ot 185 04/26/2015 PENG, HILAH S SWAT TEAM MEMBER Ot 198.5 05/10/2015 DEL, BOBAN N Ot [...] BOBAN N Ot 793.7 05/26/2015 CHERRI PENG SWAT TEAM MEMBER Ot 185 05/26/2015 DEL, BOBAN N Ot 185 05/26/2015 DEL, BOBAN N Ot 198.5 05/26/2015 DEL, BOBAN N Ot 781.91 05/26/2015 DEL, BOBAN N Ot 185 05/26/2015 DEL, BOBAN N Ot 198.5 05/26/2015 DEL, BOBAN N Ot 733.90 05/26/2015 CHERRI PENG SWAT TEAM MEMBER Ot 185 05/26/2015 CHERRI PENG SWAT TEAM MEMBER Ot 198.5 05/26/2015 DEL, BOBAN N Ot [...] CHRISTIAN JOYCE, AKASH Galeano Ot 787.20 06/03/2015 AKASH GONZALES MD Ot V72.84 06/06/2015 CHRISTIAN JOYCE, AKASH Galeano Ot 787.20 06/06/2015 CHRISTIAN JOYCE, AKASH Galeano Ot V72.84 06/07/2015 CHRISTIAN JOYCE, AKASH Galeano Ot 787.20 06/07/2015 CHRISTIAN JOYCE, AKASH Galeano Ot V72.84 06/07/2015 CHRISTIAN JOYCE, AKASH Galeano Ot 787.20 06/07/2015 CHRISTIAN JOYCE, AKASH Galeano Ot V72.84 07/06/2015 DELBOBBI GALARZAAN N Ot 185 07/06/2015 DEL, BOBAN N Ot 198.5 07/06/2015 DEL, BOBAN N Ot V58.69 07/13/2015 DEL, BOBAN N 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 07/13/2015 DEL, BOBAN N 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 07/13/2015 DELBOBBIAN N Ot V58.69 OT MED,LT,CURRENT USE 09/21/2015 CHERRI PENG SWAT TEAM MEMBER Ot C61 09/21/2015 CHERRI PENG SWAT TEAM MEMBER Ot C79.51 09/21/2015 CHERRI PENG SWAT TEAM MEMBER Ot E55.9 09/21/2015 CHERRI PENG SWAT TEAM MEMBER Ot R23.2 09/21/2015 CHERRI PENG S SWAT TEAM MEMBER Ot Z79.899 10/11/2015 CHERRI PENG S SWAT TEAM MEMBER Ot C61 10/11/2015 CHERRI PENG S SWAT TEAM MEMBER Ot C79.51 10/11/2015 CHERRI PENG SWAT TEAM MEMBER Ot E55.9 10/11/2015 CHERRI PENG S SWAT TEAM MEMBER Ot R23.2 10/11/2015 CHERRI PENG S SWAT TEAM MEMBER Ot Z79.899 10/25/2015 DEL, BOBAN N Ot [...] 11/23/2015 DEL, BOBAN N Ot 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 11/28/2015 DEL, BOBAN N Ot C61 11/28/2015 DEL, BOBAN N Ot C79.51 11/28/2015 DELBOBBI GALARZAAN N Ot Z79.899 01/03/2016 DELBOBBI GALARZAAN N Ot C61 01/03/2016 DEL, BOBAN N Ot C79.51 01/03/2016 DELJESSICA GALARZA N Ot Z79.899 01/18/2016 DELJESSICA GALARZA N Ot C61 01/18/2016 DELBOBBI GALARZAAN N Ot C79.51 01/18/2016 DELBOBBI GALARZAAN N Ot Z79.899 02/10/2016 Ot 788.41 URINARY FREQUENCY 02/10/2016 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 02/10/2016 Ot V72.84 EXAM PRE- OPERATIVE NOS 02/10/2016 CHRISTIAN JOYCE, AKASH Galeano Ot [...] FINDINGS ON RADIOLOGICAL OT 02/10/2016 CHERRI PENG S SWAT TEAM MEMBER 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 02/10/2016 DEL, BOBAN N 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 02/10/2016 EDL, BOBAN N 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 02/10/2016 DEL, BOBAN N Ot 781.91 LOSS OF HEIGHT 02/10/2016 DEL, BOBAN N 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 02/10/2016 DEL, BOBAN N 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 02/10/2016 DEL, BOBAN N Ot 733.90 BONE CARTILAGE DIS NOS 02/10/2016 CHERRI PENG SWAT TEAM MEMBER 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 02/10/2016 CHERRI PENG SWAT TEAM MEMBER 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 02/10/2016 CHRISTIAN JOYCE, AKASH Galeano Ot 787.20 DYSPHAGIA, UNSPECIFIED 02/10/2016 CHRISTIAN JOYCE, AKASH Galeano Ot V72.84 EXAM PRE-OPERATIVE NOS 02/10/2016 CHERRI PENG S SWAT TEAM MEMBER Ot C61 MALIGNANT NEOPLASM OF PROSTATE 02/10/2016 CHERRI PENG SWAT TEAM MEMBER 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 02/10/2016 CHERRI PENG SWAT TEAM MEMBER Ot 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, UNSPECIFIED 02/10/2016 CHERRI PENG SWAT TEAM MEMBER Ot R23.2 FLUSHING 02/10/2016 PENGCHERRI Fernandez S SWAT TEAM MEMBER Ot Z79.899 OTHER FCI (CURRENT) DRUG THERAPY 02/10/2016 DEL BOBAN N Ot C61 MALIGNANT NEOPLASM OF PROSTATE 02/10/2016 DEL, BOBAN N 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 02/10/2016 DEL BOBAN N Ot Z79.899 OTHER FCI (CURRENT) DRUG THERAPY 02/13/2016 DEL BOBAN N [...] OF BONE 02/22/2016 DEL, BOBAN N Ot 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 03/01/2016 DEL, BOBAN N Ot C61 MALIGNANT NEOPLASM OF PROSTATE 03/01/2016 DEL, BOBAN N 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 03/01/2016 DEL, BOBAN N 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 03/05/2016 Ot 788.41 URINARY FREQUENCY 03/05/2016 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 03/05/2016 Ot V72.84 EXAM PRE- OPERATIVE NOS 03/05/2016 AKASH GONZALES MD Ot V72.84 EXAM PRE-OPERATIVE NOS 03/05/2016 CHRISTIAN JOYCE, AKASH Galeano Ot 154.1 MALIGNANT NEOPL RECTUM 03/05/2016 AKASH GONZALES MD 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 03/05/2016 AKASH GONZALES MD Ot 562.10 DIVERTICULOSIS COLON (W/O MENT OF HEMORR 03/05/2016 AKASH GONZALES MD Ot V15.3 HX OF IRRADIATION 03/05/2016 BOBBI MATHISAN N 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 03/05/2016 DEL BOBAN N Ot 793.7 NOSP (ABN) FINDINGS ON RADIOLOGICAL OT 03/05/2016 VITOR PENGAH S SWAT TEAM MEMBER 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 03/05/2016 DEL BOBAN N 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 03/05/2016 DEL BOBAN N 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 03/05/2016 DEL, BOBAN N Ot 781.91 LOSS OF HEIGHT 03/05/2016 DELBOBBI GALARZAAN N 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 03/05/2016 DEL BOBAN N 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 03/05/2016 DEL, BOBAN N Ot 733.90 BONE CARTILAGE DIS NOS 03/05/2016 CHERRI PENG S SWAT TEAM MEMBER 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 03/05/2016 CHERRI PENG S SWAT TEAM MEMBER 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 03/05/2016 CHRISTIAN JOYCE, AKASH Galeano Ot 787.20 DYSPHAGIA, UNSPECIFIED 03/05/2016 AKASH GONZALES MD Ot V72.84 EXAM PRE-OPERATIVE NOS 03/05/2016 CHERRI PENG S SWAT TEAM MEMBER Ot C61 MALIGNANT NEOPLASM OF PROSTATE 03/05/2016 CHERRI PENG S SWAT TEAM MEMBER 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 03/05/2016 CHERRI PENG S SWAT TEAM MEMBER Ot 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, UNSPECIFIED 03/05/2016 CHERRI PENG S SWAT TEAM MEMBER Ot R23.2 FLUSHING 03/05/2016 CHERRI PENG S SWAT TEAM MEMBER Ot Z79.899 OTHER FCI (CURRENT) DRUG THERAPY 03/05/2016 BOBBI MATHISAN N Ot C61 MALIGNANT NEOPLASM OF PROSTATE 03/05/2016 DELBOBBI GALARZAAN N 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 03/05/2016 JESSICA MATHIS N 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 03/05/2016 JESSICA MATHIS N Ot C61 MALIGNANT NEOPLASM OF PROSTATE 03/05/2016 JESSICA MATHIS N 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 03/05/2016 JESSICA MATHIS N Ot 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 03/13/2016 Ot 788.41 URINARY FREQUENCY 03/13/2016 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 03/13/2016 Ot V72.84 EXAM PRE- OPERATIVE NOS 03/13/2016 CHRISTIAN JOYCE, AKASH Galeano Ot V72.84 EXAM PRE-OPERATIVE NOS 03/13/2016 CHRISTIAN JOYCE, AKASH Galeano Ot 154.1 MALIGNANT NEOPL RECTUM 03/13/2016 CHRISTIAN JOYCE, AKASH Galeano 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 03/13/2016 CHRISTIAN JOYCE, AKASH Galeano Ot 562.10 DIVERTICULOSIS COLON (W/O MENT OF HEMORR 03/13/2016 CHRISTIAN JOYCE, AKASH Galeano Ot V15.3 HX OF IRRADIATION 03/13/2016 JESSICA MATHIS N 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 03/13/2016 JESSICA MATHIS N Ot 793.7 NOSP (ABN) FINDINGS ON RADIOLOGICAL OT 03/13/2016 CHERRI PENG SWAT TEAM MEMBER 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 03/13/2016 DEL BOBAN N 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 03/13/2016 DELBOBBI GALARZAAN N 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 03/13/2016 JESSICA MATHIS N Ot 781.91 LOSS OF HEIGHT 03/13/2016 BOBBI MATHISAN N 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 03/13/2016 DELBOBBIAN N 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 03/13/2016 BOBBI MATHISAN N Ot 733.90 BONE CARTILAGE DIS NOS 03/13/2016 CHERRI PENG SWAT TEAM MEMBER 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 03/13/2016 CHERRI PENG SWAT TEAM MEMBER 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 03/13/2016 HCRISTIAN JOYCE, AKASH Galeano Ot 787.20 DYSPHAGIA, UNSPECIFIED 03/13/2016 CHRISTIAN JOYCE, AKASH Galeano Ot V72.84 EXAM PRE-OPERATIVE NOS 03/13/2016 PENG, HILAH S SWAT TEAM MEMBER Ot C61 MALIGNANT NEOPLASM OF PROSTATE 03/13/2016 CHERRI PENG SWAT TEAM MEMBER 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 03/13/2016 CHERRI PENG SWAT TEAM MEMBER Ot 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, UNSPECIFIED 03/13/2016 CHERRI PENG SWAT TEAM MEMBER Ot R23.2 FLUSHING 03/13/2016 CHERRI PENG SWAT TEAM MEMBER Ot Z79.899 OTHER FCI (CURRENT) DRUG THERAPY 03/13/2016 JESSICA MATHIS N Ot C61 MALIGNANT NEOPLASM OF PROSTATE 03/13/2016 JESSICA MATHIS N 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 03/13/2016 EDL JESSICA N 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 03/13/2016 DELJESSICA N Ot C61 MALIGNANT NEOPLASM OF PROSTATE 03/13/2016 DEL JESSICA N 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 03/13/2016 JESSICA MATHIS N Ot Z79.899 OTHER FCI (CURRENT) DRUG THERAPY 03/21/2016 Ot 788.41 URINARY FREQUENCY 03/21/2016 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 03/21/2016 Ot V72.84 EXAM PRE- OPERATIVE NOS 03/21/2016 CHRISTIAN JOYCE, AKASH Galeano Ot V72.84 EXAM PRE-OPERATIVE NOS 03/21/2016 CHRISTIAN JOYCE, AKASH Galeano Ot 154.1 MALIGNANT NEOPL RECTUM 03/21/2016 AKASH GONZALES MD 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 03/21/2016 AKASH GONZALES MD Ot 562.10 DIVERTICULOSIS COLON (W/O MENT OF HEMORR 03/21/2016 AKASH GONZALES MD Ot V15.3 HX OF IRRADIATION 03/21/2016 JESSICA MATHIS N 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 03/21/2016 JESSICA MATHIS N Ot 793.7 NOSP (ABN) FINDINGS ON RADIOLOGICAL OT 03/21/2016 CHERRI PENG SWAT TEAM MEMBER 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 03/21/2016 DELJESSICA GALARZA N 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 03/21/2016 JESSICA MATHIS N 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 03/21/2016 JESSICA MATHIS N Ot 781.91 LOSS OF HEIGHT 03/21/2016 DEL, BOBAN N 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 03/21/2016 DELJESSICA GALARZA N 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 03/21/2016 DELJESSICA GALARZA N Ot 733.90 BONE CARTILAGE DIS NOS 03/21/2016 PENGCHERRI S SWAT TEAM MEMBER 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 03/21/2016 PENGCHERRI S SWAT TEAM MEMBER 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 03/21/2016 AKASH GONZALES MD Ot 787.20 DYSPHAGIA, UNSPECIFIED 03/21/2016 AKASH GONZALES MD Ot V72.84 EXAM PRE-OPERATIVE NOS 03/21/2016 PENGCHERRI S SWAT TEAM MEMBER Ot C61 MALIGNANT NEOPLASM OF PROSTATE 03/21/2016 PENGVITORAH S SWAT TEAM MEMBER 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 03/21/2016 CHERRI PENG S SWAT TEAM MEMBER Ot 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, UNSPECIFIED 03/21/2016 CHERRI PENG S SWAT TEAM MEMBER Ot R23.2 FLUSHING 03/21/2016 CHERRI PENG S SWAT TEAM MEMBER Ot 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 03/21/2016 JESSICA MATHIS N Ot C61 MALIGNANT NEOPLASM OF PROSTATE 03/21/2016 DELJESSICA GALARZA N 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 03/21/2016 DELJESSICA GALARZA N 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 03/21/2016 DELJESSICA GALARZA N Ot C61 MALIGNANT NEOPLASM OF PROSTATE 03/21/2016 DELJESSICA GALARZA N 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 03/21/2016 JESSICA MATHIS N Ot 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 03/22/2016 AKASH GONZALES MD [...] Z01.818 ENCOUNTER FOR OTHER PREPROCEDURAL EXAMIN 03/23/2016 CHRISTIAN JOYCE, AKASH Galeano Ot C61 MALIGNANT NEOPLASM OF PROSTATE 03/23/2016 CHRISTIAN JOYCE, AKASH Galeano 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 03/23/2016 AKASH GONZALES MD Ot 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 PERFORATION OR AB 03/23/2016 AKASH GONZALES MD Ot M26.62 ARTHRALGIA OF TEMPOROMANDIBULAR JOINT 03/23/2016 AKASH GONZALES MD Ot Z92.3 PERSONAL HISTORY OF IRRADIATION 03/23/2016 Ot 788.41 URINARY FREQUENCY 03/23/2016 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 03/23/2016 Ot V72.84 EXAM PRE- OPERATIVE NOS 03/23/2016 CHRISTIAN JOYCE, AKASH Galeano Ot V72.84 EXAM PRE-OPERATIVE NOS 03/23/2016 CHRISTIAN JOYCE, AKASH Galeano Ot 154.1 MALIGNANT NEOPL RECTUM 03/23/2016 AKASH GONZALES MD 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 03/23/2016 AKASH GONZALES MD Ot 562.10 DIVERTICULOSIS COLON (W/O MENT OF HEMORR 03/23/2016 AKASH GONZALES MD Ot V15.3 HX OF IRRADIATION 03/23/2016 DEL, BOBAN N 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 03/23/2016 DEL, BOBAN N Ot 793.7 NOSP (ABN) FINDINGS ON RADIOLOGICAL OT 03/23/2016 CHERRI PENG S SWAT TEAM MEMBER 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 03/23/2016 DEL, BOBAN N 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 03/23/2016 DEL BOBAN N 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 03/23/2016 DEL, BOBAN N Ot 781.91 LOSS OF HEIGHT 03/23/2016 DEL, BOBAN N 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 03/23/2016 DEL, BOBAN N 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 03/23/2016 DEL, BOBAN N Ot 733.90 BONE CARTILAGE DIS NOS 03/23/2016 CHERRI PENG S SWAT TEAM MEMBER 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 03/23/2016 CHERRI PENG S SWAT TEAM MEMBER 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 03/23/2016 AKASH GONZALES MD Ot 787.20 DYSPHAGIA, UNSPECIFIED 03/23/2016 AKASH GONZALES MD Ot V72.84 EXAM PRE-OPERATIVE NOS 03/23/2016 CHERRI PENG SWAT TEAM MEMBER Ot C61 MALIGNANT NEOPLASM OF PROSTATE 03/23/2016 CHERRI PENG SWAT TEAM MEMBER 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 03/23/2016 CHERRI PENG SWAT TEAM MEMBER Ot 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, UNSPECIFIED 03/23/2016 CHERRI PENG SWAT TEAM MEMBER Ot R23.2 FLUSHING 03/23/2016 CHERRI PENG SWAT TEAM MEMBER Ot Z79.899 OTHER FCI (CURRENT) DRUG THERAPY 03/23/2016 JESSICA MATHIS N [...] 03/23/2016 JESSICA MATHIS N Ot Z79.899 OTHER FCI (CURRENT) DRUG THERAPY 03/27/2016 AKASH GONZALES MD [...] MALIGN NEOPL PROSTATE 04/03/2016 Ot V72.84 EXAM PRE- OPERATIVE NOS 04/03/2016 AKASH GONZALES MD Ot V72.84 EXAM PRE-OPERATIVE NOS 04/03/2016 AKASH GONZALES MD Ot 154.1 MALIGNANT NEOPL RECTUM 04/03/2016 AKASH GONZALES MD 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 04/03/2016 AKASH GONZALES MD Ot 562.10 DIVERTICULOSIS COLON (W/O MENT OF HEMORR 04/03/2016 AKASH GONZALES MD Ot V15.3 HX OF IRRADIATION 04/03/2016 DEL BOBBIAN N 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 04/03/2016 JESSICA MATHIS N Ot 793.7 NOSP (ABN) FINDINGS ON RADIOLOGICAL OT 04/03/2016 CHERRI PENG S SWAT TEAM MEMBER 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 04/03/2016 DEL BOBBIAN N 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 04/03/2016 DEL BOBAN N 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 04/03/2016 DEL BOBBIAN N Ot 781.91 LOSS OF HEIGHT 04/03/2016 DEL BOBBIAN N 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 04/03/2016 DEL, BOBAN N 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 04/03/2016 DEL BOBBIAN N Ot 733.90 BONE CARTILAGE DIS NOS 04/03/2016 CHERRI PENG SWAT TEAM MEMBER 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 04/03/2016 CHERRI PENG S SWAT TEAM MEMBER 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 04/03/2016 CHRISTIAN JOYCE, AKASH Galeano Ot 787.20 DYSPHAGIA, UNSPECIFIED 04/03/2016 CHRISTIAN JOYCE, AKASH Galeano Ot V72.84 EXAM PRE-OPERATIVE NOS 04/03/2016 CHERRI PENG SWAT TEAM MEMBER Ot C61 MALIGNANT NEOPLASM OF PROSTATE 04/03/2016 CHERRI PENG SWAT TEAM MEMBER 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 04/03/2016 CHERRI PENG SWAT TEAM MEMBER Ot 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, UNSPECIFIED 04/03/2016 CHERRI PENG SWAT TEAM MEMBER Ot R23.2 FLUSHING 04/03/2016 CHERRI PENG SWAT TEAM MEMBER Ot Z79.899 OTHER FCI (CURRENT) DRUG THERAPY 04/03/2016 DELJESSICA GALARZA N Ot C61 MALIGNANT NEOPLASM OF PROSTATE 04/03/2016 DEL, JESSICA N 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 04/03/2016 DELJESSICA N 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 04/03/2016 DEL BOBAN N Ot C61 MALIGNANT NEOPLASM OF PROSTATE 04/03/2016 DEL, BOBBIAN N 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 04/03/2016 DEL BOBBIAN N Ot Z79.899 OTHER FCI (CURRENT) DRUG THERAPY 04/10/2016 Ot 788.41 URINARY FREQUENCY 04/10/2016 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 04/10/2016 Ot V72.84 EXAM PRE- OPERATIVE NOS 04/10/2016 CHRISTIAN JOYCE, AKASH Galeano Ot V72.84 EXAM PRE-OPERATIVE NOS 04/10/2016 CHRISTIAN JOYCE, AKASH Galeano Ot 154.1 MALIGNANT NEOPL RECTUM 04/10/2016 AKASH GONZALES MD 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 04/10/2016 CHRISTIAN JOYCE, AKASH Galeano Ot 562.10 DIVERTICULOSIS COLON (W/O MENT OF HEMORR 04/10/2016 AKASH GONZALES MD Ot V15.3 HX OF IRRADIATION 04/10/2016 DELBOBBI GALARZAAN N 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 04/10/2016 DEL BOBAN N Ot 793.7 NOSP (ABN) FINDINGS ON RADIOLOGICAL OT 04/10/2016 CHERRI PENG SWAT TEAM MEMBER 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 04/10/2016 DELBOBBI GALARZAAN N 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 04/10/2016 DEL BOBAN N 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 04/10/2016 DEL BOBAN N Ot 781.91 LOSS OF HEIGHT 04/10/2016 DEL BOBAN N 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 04/10/2016 DEL, BOBAN N 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 04/10/2016 DEL BOBAN N Ot 733.90 BONE CARTILAGE DIS NOS 04/10/2016 CHERRI PENG [employer] TE[employer] MEMBER 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 04/10/2016 CHERRI PENG SWAT TEAM MEMBER 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 04/10/2016 CHRITSIAN JOYCE, AKASH Galeano Ot 787.20 DYSPHAGIA, UNSPECIFIED 04/10/2016 CHRISTIAN JOYCE, AKASH Galeano Ot V72.84 EXAM PRE-OPERATIVE NOS 04/10/2016 CHERRI PENG SW[employer] TEAM MEMBER Ot C61 MALIGNANT NEOPLASM OF PROSTATE 04/10/2016 CHERRI PENG SWAT TEAM MEMBER 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 04/10/2016 CHERRI PENG SWAT TEAM MEMBER Ot 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, UNSPECIFIED 04/10/2016 CHERRI PENG SWAT TEAM MEMBER Ot R23.2 FLUSHING 04/10/2016 CHERRI PENG SWAT TEAM MEMBER Ot 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 04/10/2016 JESSICA MATHIS N [...] 04/10/2016 JESSICA MATHIS N Ot Z79.899 OTHER [facility] (CURRENT) DRUG THERAPY 04/12/2016 Ot 788.41 URINARY FREQUENCY 04/12/2016 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 04/12/2016 Ot V72.84 EXAM PRE- OPERATIVE NOS 04/12/2016 CHRISTIAN JOYCE, AKASH Galeano Ot V72.84 EXAM PRE-OPERATIVE NOS 04/12/2016 CHRISTIAN JOYCE, AKASH Galeano Ot 154.1 MALIGNANT NEOPL RECTUM 04/12/2016 CHRISTIAN JOYCE, AKASH Galeano 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 04/12/2016 CHRISTIAN JOYCE, AKASH Galeano Ot 562.10 DIVERTICULOSIS COLON (W/O MENT OF HEMORR 04/12/2016 CHRISTIAN JOYCE, AKASH Galeano Ot V15.3 HX OF IRRADIATION 04/12/2016 BOBBI MATHISAN N 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 04/12/2016 JESSICA MATHIS N Ot 793.7 NOSP (ABN) FINDINGS ON RADIOLOGICAL OT 04/12/2016 CHERRI PENG S [employer] TEAM MEMBER 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 04/12/2016 DEL BOBAN N 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 04/12/2016 DEL BOBAN N 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 04/12/2016 BOBBI MATHISAN N Ot 781.91 LOSS OF HEIGHT 04/12/2016 DEL BOBAN N 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 04/12/2016 DEL BOBAN N 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 04/12/2016 DEL BOBAN N Ot 733.90 BONE CARTILAGE DIS NOS 04/12/2016 CHERRI PENG S [employer]AT TE[employer] MEMBER 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 04/12/2016 CHERRI PENG SWAT TEAM MEMBER 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 04/12/2016 CHRISTIAN JOYCE, AKASH Galeano Ot 787.20 DYSPHAGIA, UNSPECIFIED 04/12/2016 CHRISTIAN JOYCE, AKASH Galeano Ot V72.84 EXAM PRE-OPERATIVE NOS 04/12/2016 CHERRI PENG SWAT TE[employer] MEMBER Ot C61 MALIGNANT NEOPLASM OF PROSTATE 04/12/2016 CHERRI PENG SWAT TEAM MEMBER 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 04/12/2016 CHERRI PENG SWAT TEAM MEMBER Ot 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, UNSPECIFIED 04/12/2016 CHERRI PENG SWAT TEAM MEMBER Ot R23.2 FLUSHING 04/12/2016 CHERRI PENG SWAT TEAM MEMBER Ot Z79.899 OTHER [facility] (CURRENT) DRUG THERAPY 04/12/2016 JESSICA MATHIS N Ot C61 MALIGNANT NEOPLASM OF PROSTATE 04/12/2016 JESSICA MATHIS N 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 04/12/2016 JESSICA MATHIS N 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 04/12/2016 JESSICA MATHIS N Ot C61 MALIGNANT NEOPLASM OF PROSTATE 04/12/2016 DELJESSICA GALARZA N 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 04/12/2016 JESSICA MATHIS N Ot Z79.899 OTHER [facility]CI (CURRENT) DRUG THERAPY 05/04/2016 JESSICA MATHIS N Ot C61 MALIGNANT NEOPLASM OF PROSTATE 05/04/2016 DEL BOBAN N 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 05/04/2016 JESSICA MATHIS N Ot 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 05/07/2016 Ot 788.41 URINARY FREQUENCY 05/07/2016 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 05/07/2016 Ot V72.84 EXAM PRE- OPERATIVE NOS 05/07/2016 CHRISTIAN JOYCE, AKASH Galeano Ot V72.84 EXAM PRE-OPERATIVE NOS 05/07/2016 CHRISTIAN JOYCE, AKASH Galeano Ot 154.1 MALIGNANT NEOPL RECTUM 05/07/2016 AKASH GONZALES MD 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 05/07/2016 CHRISTIAN JOYCE, AKASH Galeano Ot 562.10 DIVERTICULOSIS COLON (W/O MENT OF HEMORR 05/07/2016 CHRISTIAN JOYCE, AKASH Galeano Ot V15.3 HX OF IRRADIATION 05/07/2016 BOBBI MATHISAN N 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 05/07/2016 JESSICA MATHIS N Ot 793.7 NOSP (ABN) FINDINGS ON RADIOLOGICAL OT 05/07/2016 CHERRI PENG SW[employer] TE[employer] MEMBER 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 05/07/2016 DEL BOBAN N 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 05/07/2016 DEL, BOBAN N 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 05/07/2016 BOBBI MATHISAN N Ot 781.91 LOSS OF HEIGHT 05/07/2016 BOBBI MATHISAN N 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 05/07/2016 DEL BOBAN N 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 05/07/2016 DELBOBBI GALARZAAN N Ot 733.90 BONE CARTILAGE DIS NOS 05/07/2016 CHERRI PENG S SWAT TEAM MEMBER 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 05/07/2016 CHERRI PENG S SWAT TEAM MEMBER 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 05/07/2016 CHRISTIAN JOYCE, AKASH Galeano Ot 787.20 DYSPHAGIA, UNSPECIFIED 05/07/2016 CHRISTIAN JOYCE, AKASH Galeano Ot V72.84 EXAM PRE-OPERATIVE NOS 05/07/2016 CHERRI PENG SWAT TEAM MEMBER Ot C61 MALIGNANT NEOPLASM OF PROSTATE 05/07/2016 CHERRI PENG SWAT TEAM MEMBER 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 05/07/2016 CHERRI PENG SWAT TEAM MEMBER Ot 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, UNSPECIFIED 05/07/2016 CHERRI PENG SWAT TEAM MEMBER Ot R23.2 FLUSHING 05/07/2016 CHERRI PENG SWAT TEAM MEMBER Ot 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 05/07/2016 DELJESSICA GALARZA N Ot C61 MALIGNANT NEOPLASM OF PROSTATE 05/07/2016 JESSICA MATHIS N 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 05/07/2016 DEL BOBAN N 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 05/07/2016 DEL BOBAN N Ot C61 MALIGNANT NEOPLASM OF PROSTATE 05/07/2016 DEL BOBAN N 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 05/07/2016 DEL, BOBAN N Ot Z79.899 OTHER FCI (CURRENT) DRUG THERAPY 05/08/2016 Ot 788.41 URINARY FREQUENCY 05/08/2016 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 05/08/2016 Ot V72.84 EXAM PRE- OPERATIVE NOS 05/08/2016 CHRISTIAN JOYCE, AKASH Galeano Ot V72.84 EXAM PRE-OPERATIVE NOS 05/08/2016 CHRISTIAN JOYCE, AKASH Galeano Ot 154.1 MALIGNANT NEOPL RECTUM 05/08/2016 AKASH GONZALES MD 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 05/08/2016 AKASH GONZALES MD Ot 562.10 DIVERTICULOSIS COLON (W/O MENT OF HEMORR 05/08/2016 AKASH GONZALES MD Ot V15.3 HX OF IRRADIATION 05/08/2016 DEL BOBAN N 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 05/08/2016 DEL BOBAN N Ot 793.7 NOSP (ABN) FINDINGS ON RADIOLOGICAL OT 05/08/2016 CHERRI PENG S SWAT TEAM MEMBER 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 05/08/2016 DEL BOBAN N 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 05/08/2016 DEL BOBAN N 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 05/08/2016 DEL, BOBAN N Ot 781.91 LOSS OF HEIGHT 05/08/2016 DEL BOBAN N 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 05/08/2016 DEL BOBAN N 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 05/08/2016 DEL BOBAN N Ot 733.90 BONE CARTILAGE DIS NOS 05/08/2016 CHERRI PENG S SWAT TEAM MEMBER 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 05/08/2016 CHERRI PENG S SWAT TEAM MEMBER 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 05/08/2016 CHRISTIAN JOYCE, AKASH Galeano Ot 787.20 DYSPHAGIA, UNSPECIFIED 05/08/2016 CHRISTIAN JOYCE, AKASH Galeano Ot V72.84 EXAM PRE-OPERATIVE NOS 05/08/2016 CHERRI PENG S SWAT TEAM MEMBER Ot C61 MALIGNANT NEOPLASM OF PROSTATE 05/08/2016 CHERRI PENG S SWAT TEAM MEMBER 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 05/08/2016 CHERRI PENG SWAT TEAM MEMBER Ot 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, UNSPECIFIED 05/08/2016 CHERRI PENG S SWAT TEAM MEMBER Ot R23.2 FLUSHING 05/08/2016 CHERRI PENG SWAT TEAM MEMBER Ot Z79.899 OTHER FCI (CURRENT) DRUG THERAPY 05/08/2016 JESSICA MATHIS N [...] 05/08/2016 JESSICA MATHIS N Ot Z79.899 OTHER FCI (CURRENT) DRUG THERAPY 05/11/2016 Ot 788.41 URINARY FREQUENCY 05/11/2016 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 05/11/2016 Ot V72.84 EXAM PRE- OPERATIVE NOS 05/11/2016 CHRISTIAN JOYCE, AKASH Galeano Ot V72.84 EXAM PRE-OPERATIVE NOS 05/11/2016 CHRISTIAN JOYCE, AKASH Galeano Ot 154.1 MALIGNANT NEOPL RECTUM 05/11/2016 CHRISTIAN JOYCE, AKASH Galeano 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 05/11/2016 CHRISTIAN JOYCE, AKASH Galeano Ot 562.10 DIVERTICULOSIS COLON (W/O MENT OF HEMORR 05/11/2016 CHRISTIAN JOYCE, AKASH Galeano Ot V15.3 HX OF IRRADIATION 05/11/2016 DEL BOBAN N 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 05/11/2016 JESSICA MATHIS N Ot 793.7 NOSP (ABN) FINDINGS ON RADIOLOGICAL OT 05/11/2016 CHERRI PENG S SWAT TEAM MEMBER 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 05/11/2016 DEL BOBAN N 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 05/11/2016 BOBBI MATHISAN N 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 05/11/2016 BOBBI MATHISAN N Ot 781.91 LOSS OF HEIGHT 05/11/2016 DEL BOBAN N 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 05/11/2016 DELBOBBIAN N 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 05/11/2016 DEL, BOBAN N Ot 733.90 BONE CARTILAGE DIS NOS 05/11/2016 CHERRI PENG S SWAT TEAM MEMBER 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 05/11/2016 CHERRI PENG S SWAT TEAM MEMBER 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 05/11/2016 CHRISTIAN JOYCE, AKASH Galeano Ot 787.20 DYSPHAGIA, UNSPECIFIED 05/11/2016 CHRISTIAN JOYCE, AKASH Galeano Ot V72.84 EXAM PRE-OPERATIVE NOS 05/11/2016 CHERRI PENG SWAT TEAM MEMBER Ot C61 MALIGNANT NEOPLASM OF PROSTATE 05/11/2016 CHERRI PENG SWAT TEAM MEMBER 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 05/11/2016 CHERRI PENG SWAT TEAM MEMBER Ot 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, UNSPECIFIED 05/11/2016 CHERRI PENG SWAT TEAM MEMBER Ot R23.2 FLUSHING 05/11/2016 CHERRI PENG SWAT TEAM MEMBER Ot 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 05/11/2016 JESSICA MATHIS N Ot C61 MALIGNANT NEOPLASM OF PROSTATE 05/11/2016 JESSICA MATHIS N 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 05/11/2016 JESSICA MATHIS N 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 05/11/2016 JESSICA MATHIS N Ot C61 MALIGNANT NEOPLASM OF PROSTATE 05/11/2016 JESSICA MATHIS N 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 05/11/2016 JESSICA MATHIS N Ot 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 05/14/2016 CHERIR PENG SWAT TEAM MEMBER Ot C61 MALIGNANT NEOPLASM OF PROSTATE 05/14/2016 CHERRI PENG SWAT TEAM MEMBER 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 05/14/2016 CHERRI PENG SWAT TEAM MEMBER Ot Z79.899 OTHER FCI (CURRENT) DRUG THERAPY 05/29/2016 Ot 788.41 URINARY FREQUENCY 05/29/2016 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 05/29/2016 Ot V72.84 EXAM PRE- OPERATIVE NOS 05/29/2016 CHRISTIAN JOYCE, AKASH Galeano Ot V72.84 EXAM PRE-OPERATIVE NOS 05/29/2016 CHRISTIAN JOYCE, AKASH Galeano Ot 154.1 MALIGNANT NEOPL RECTUM 05/29/2016 CHRISTIAN JOYCE, AKASH Galeano 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 05/29/2016 CHRISTIAN JOYCE, AKASH Galeano Ot 562.10 DIVERTICULOSIS COLON (W/O MENT OF HEMORR 05/29/2016 AKASH GONZALES MD Ot V15.3 HX OF IRRADIATION 05/29/2016 JESSICA MATHIS N 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 05/29/2016 DELJESSICA N Ot 793.7 NOSP (ABN) FINDINGS ON RADIOLOGICAL OT 05/29/2016 CHERRI PENG S SWAT TEAM MEMBER 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 05/29/2016 DEL BOBBILUZ N 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 05/29/2016 DEL BOBLUZ N 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 05/29/2016 JESSICA MATHIS N Ot 781.91 LOSS OF HEIGHT 05/29/2016 JESSICA MATHIS N 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 05/29/2016 JESSICA MATHIS N 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 05/29/2016 BOBBI MATHISAN N Ot 733.90 BONE CARTILAGE DIS NOS 05/29/2016 CHERRI PENG S SWAT TEAM MEMBER 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 05/29/2016 CHERRI PENG S SWAT TEAM MEMBER 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 05/29/2016 CHRISTIAN JOYCE, AKASH Galeano Ot 787.20 DYSPHAGIA, UNSPECIFIED 05/29/2016 AKASH GONZALES MD Ot V72.84 EXAM PRE-OPERATIVE NOS 05/29/2016 CHERRI PENG SWAT TEAM MEMBER Ot C61 MALIGNANT NEOPLASM OF PROSTATE 05/29/2016 CHERRI PENG S SWAT TEAM MEMBER 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 05/29/2016 CHERRI PENG SWAT TEAM MEMBER Ot 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, UNSPECIFIED 05/29/2016 CHERRI PENG S SWAT TEAM MEMBER Ot R23.2 FLUSHING 05/29/2016 CHERRI PENG S SWAT TEAM MEMBER Ot 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 05/29/2016 JESSICA MATHIS N Ot C61 MALIGNANT NEOPLASM OF PROSTATE 05/29/2016 DEL JESSICA N 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 05/29/2016 DEL JESSICA N 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 05/29/2016 DEL JESSICA N Ot C61 MALIGNANT NEOPLASM OF PROSTATE 05/29/2016 DEL BOBAN N 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 05/29/2016 DEL BOBAN N Ot 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 05/29/2016 CHERRI PENG S SWAT TEAM MEMBER Ot C61 MALIGNANT NEOPLASM OF PROSTATE 05/29/2016 CHERRI PENG S SWAT TEAM MEMBER 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 05/29/2016 CHERRI PENG SWAT TEAM MEMBER Ot Z79.899 OTHER FCI (CURRENT) DRUG THERAPY 06/05/2016 JESSICA MATHIS N Ot C61 MALIGNANT NEOPLASM OF PROSTATE 06/05/2016 BOBBI MATHISAN N 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 06/05/2016 JESSICA MATHIS N Ot Z79.899 OTHER FCI (CURRENT) DRUG THERAPY 06/05/2016 Ot 788.41 URINARY FREQUENCY 06/05/2016 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 06/05/2016 Ot V72.84 EXAM PRE- OPERATIVE NOS 06/05/2016 CHRISTIAN JOYCE, AKASH Galeano Ot V72.84 EXAM PRE-OPERATIVE NOS 06/05/2016 CHRISTIAN JOYCE, AKASH Galeano Ot 154.1 MALIGNANT NEOPL RECTUM 06/05/2016 CHRISTIAN JOYCE, AKASH Galeano 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 06/05/2016 CHRISTIAN JOYCE, AKASH Galeano Ot 562.10 DIVERTICULOSIS COLON (W/O MENT OF HEMORR 06/05/2016 CHRISTIAN JOYCE, AKASH Galeano Ot V15.3 HX OF IRRADIATION 06/05/2016 BOBBI MATHISAN N 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 06/05/2016 DELBOBBI GALARZAAN N Ot 793.7 NOSP (ABN) FINDINGS ON RADIOLOGICAL OT 06/05/2016 CHERRI PENG S SWAT TEAM MEMBER 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 06/05/2016 DEL, BOBAN N 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 06/05/2016 DEL BOBAN N 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 06/05/2016 DEL BOBAN N Ot 781.91 LOSS OF HEIGHT 06/05/2016 DEL, BOBAN N Ot 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 06/05/2016 DEL, BOBAN N 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 06/05/2016 DEL, BOBAN N Ot 733.90 BONE CARTILAGE DIS NOS 06/05/2016 CHERRI PENG S SWAT TEAM MEMBER Ot 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 06/05/2016 CHERRI PENG S SWAT TEAM MEMBER 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 06/05/2016 CHRISTIAN JOYCE, AKASH Galeano Ot 787.20 DYSPHAGIA, UNSPECIFIED 06/05/2016 CHRISTIAN JOYCE, AKASH Galeano Ot V72.84 EXAM PRE-OPERATIVE NOS 06/05/2016 CHERRI PENG SWAT TEAM MEMBER Ot C61 MALIGNANT NEOPLASM OF PROSTATE 06/05/2016 CHERRI PENG SWAT TEAM MEMBER 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 06/05/2016 CHERRI PENG SWAT TEAM MEMBER Ot 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, UNSPECIFIED 06/05/2016 CHERRI PENG SWAT TEAM MEMBER Ot R23.2 FLUSHING 06/05/2016 CHERRI PENG SWAT TEAM MEMBER Ot 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 06/05/2016 JESSICA MATHIS N [...] 06/05/2016 JESSICA MATHIS N Ot Z79.899 OTHER FCI (CURRENT) DRUG THERAPY 06/05/2016 CHERRI PENG SWAT TEAM MEMBER Ot C61 MALIGNANT NEOPLASM OF PROSTATE 06/05/2016 CHERRI PENG SWAT TEAM MEMBER 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 06/05/2016 CHERRI PENG SWAT TEAM MEMBER Ot Z79.899 OTHER FCI (CURRENT) DRUG THERAPY 06/05/2016 JESSICA MATHIS N Ot C61 MALIGNANT NEOPLASM OF PROSTATE 06/05/2016 JESSICA MATHIS N 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 06/05/2016 JESSICA MATHIS N Ot Z79.899 OTHER FCI (CURRENT) DRUG THERAPY 06/05/2016 JESSICA MATHIS N Ot C61 MALIGNANT NEOPLASM OF PROSTATE 06/05/2016 DELJESSICA GALARZA N 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 06/05/2016 DELJESSICA GALARZA N Ot 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 06/06/2016 CHERRI PENG SWAT TEAM MEMBER Ot C61 MALIGNANT NEOPLASM OF PROSTATE 06/06/2016 CHERRI PENG SWAT TEAM MEMBER 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 06/06/2016 CHERRI PENG SWAT TEAM MEMBER Ot 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 06/15/2016 Ot 788.41 URINARY FREQUENCY 06/15/2016 Ot 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 06/15/2016 Ot V72.84 EXAM PRE- OPERATIVE NOS 06/15/2016 AKASH GONZALES MD Ot V72.84 EXAM PRE-OPERATIVE NOS 06/15/2016 AKASH GONZALES MD Ot 154.1 MALIGNANT NEOPL RECTUM 06/15/2016 AKASH GONZALES MD Ot 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 06/15/2016 AKASH GONZALES MD Ot 562.10 DIVERTICULOSIS COLON (W/O MENT OF HEMORR 06/15/2016 AKASH GONZALES MD Ot V15.3 HX OF IRRADIATION 06/15/2016 DEL, BOBAN N Ot 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 06/15/2016 DEL BOBAN N Ot 793.7 NOSP (ABN) FINDINGS ON RADIOLOGICAL OT 06/15/2016 CHERRI PENG SWAT TEAM MEMBER Ot 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 06/15/2016 DEL BOBAN N Ot 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 06/15/2016 DEL BOBAN N 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 06/15/2016 DEL BOBAN N Ot 781.91 LOSS OF HEIGHT 06/15/2016 DEL BOBAN N Ot 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 06/15/2016 DEL BOBAN N 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 06/15/2016 EDL BOBAN N Ot 733.90 BONE CARTILAGE DIS NOS 06/15/2016 CHERRI PENG S SWAT TEAM MEMBER Ot 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 06/15/2016 CHERRI PENG S SWAT TEAM MEMBER 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 06/15/2016 CHRISTIAN JOYCE, AKASH Galeano Ot 787.20 DYSPHAGIA, UNSPECIFIED 06/15/2016 AKASH GONZALES MD Ot V72.84 EXAM PRE-OPERATIVE NOS 06/15/2016 CHERRI PENG SWAT TEAM MEMBER Ot C61 MALIGNANT NEOPLASM OF PROSTATE 06/15/2016 CHERRI PENG SWAT TEAM MEMBER 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 06/15/2016 CHERRI PENG SWAT TEAM MEMBER Ot 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, UNSPECIFIED 06/15/2016 CHERRI PENG SWAT TEAM MEMBER Ot R23.2 FLUSHING 06/15/2016 CHERRI PENG SWAT TEAM MEMBER Ot Z79.899 OTHER FCI (CURRENT) DRUG THERAPY 06/15/2016 JESSICA MATHIS N Ot C61 MALIGNANT NEOPLASM OF PROSTATE 06/15/2016 JESSICA MATHIS N 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 06/15/2016 JESSICA MATHIS N 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 06/15/2016 JESSICA MATHIS N Ot C61 MALIGNANT NEOPLASM OF PROSTATE 06/15/2016 JESSICA MATHIS N 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 06/15/2016 JESSICA MATHIS N Ot Z79.899 OTHER FCI (CURRENT) DRUG THERAPY 06/15/2016 PENGCHERRI S SWAT TEAM MEMBER Ot C61 MALIGNANT NEOPLASM OF PROSTATE 06/15/2016 PENGCHERRI S SWAT TEAM MEMBER 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 06/15/2016 PENGVITORAH S SWAT TEAM MEMBER Ot 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 07/23/2016 Ot 788.41 URINARY FREQUENCY 07/23/2016 Ot 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 07/23/2016 Ot V72.84 EXAM PRE- OPERATIVE NOS 07/23/2016 CHRISTIAN JOYCE, AKASH Galeano Ot V72.84 EXAM PRE-OPERATIVE NOS 07/23/2016 CHRISTIAN JOYCE, AKASH Galeano Ot 154.1 MALIGNANT NEOPL RECTUM 07/23/2016 CHRISTIAN JOYCE, AKASH Galeano Ot 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 07/23/2016 CHRISTIAN JOYCE, AKASH Galeano Ot 562.10 DIVERTICULOSIS COLON (W/O MENT OF HEMORR 07/23/2016 CHRISTIAN JOYCE, AKASH Galeano Ot V15.3 HX OF IRRADIATION 07/23/2016 DELJESSICA N Ot 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 07/23/2016 JESSICA MATHIS N Ot 793.7 NOSP (ABN) FINDINGS ON RADIOLOGICAL OT 07/23/2016 PENGCHERRI S SWAT TEAM MEMBER Ot 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 07/23/2016 DELBOBBIAN N Ot 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 07/23/2016 DEL BOBAN N 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 07/23/2016 BOBBI MATHISAN N Ot 781.91 LOSS OF HEIGHT 07/23/2016 DELBOBBIAN N Ot 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 07/23/2016 DEL BOBAN N 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 07/23/2016 DELJESSICA GALARZA N Ot 733.90 BONE CARTILAGE DIS NOS 07/23/2016 CHERRI PENG SWAT TEAM MEMBER Ot 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 07/23/2016 CHERRI PENG S SWAT TEAM MEMBER 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 07/23/2016 AKASH GONZALES MD Ot 787.20 DYSPHAGIA, UNSPECIFIED 07/23/2016 AKASH GONZALES MD Ot V72.84 EXAM PRE-OPERATIVE NOS 07/23/2016 CHERRI PENG S SWAT TEAM MEMBER Ot C61 MALIGNANT NEOPLASM OF PROSTATE 07/23/2016 CHERRI PENG S SWAT TEAM MEMBER 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 07/23/2016 CHERRI PENG SWAT TEAM MEMBER Ot 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, UNSPECIFIED 07/23/2016 CHERRI PENG S SWAT TEAM MEMBER Ot R23.2 FLUSHING 07/23/2016 CHERRI PENG S SWAT TEAM MEMBER Ot Z79.899 OTHER FCI (CURRENT) DRUG THERAPY 07/23/2016 BOBBI MATHISLUZ N Ot C61 MALIGNANT NEOPLASM OF PROSTATE 07/23/2016 DEL JESSICA N 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 07/23/2016 JESSICA MATHIS N 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 07/23/2016 DEL BOBBILUZ N Ot C61 MALIGNANT NEOPLASM OF PROSTATE 07/23/2016 DELJESSICA GALARZA N 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 07/23/2016 DELJESSICA GALARZA N Ot 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 07/23/2016 CHERRI PENG S SWAT TEAM MEMBER Ot C61 MALIGNANT NEOPLASM OF PROSTATE 07/23/2016 CHERRI PENG S SWAT TEAM MEMBER 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 07/23/2016 CHERRI PENG S SWAT TEAM MEMBER Ot Z79.899 OTHER FCI (CURRENT) DRUG THERAPY 07/23/2016 DELBOBBIAN N Ot C61 MALIGNANT NEOPLASM OF PROSTATE 07/23/2016 DELBOBBIAN N 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 07/23/2016 DELJESSICA GALARZA N Ot Z79.899 OTHER FCI (CURRENT) DRUG THERAPY 08/24/2016 JESSICA MATHIS N Ot C61 MALIGNANT NEOPLASM OF PROSTATE 08/24/2016 DELJESSICA GALARZA N 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 08/24/2016 DELBOBBIAN N Ot Z79.899 OTHER FCI (CURRENT) DRUG THERAPY 09/14/2016 PENGCHERRI Fernandez SWAT TEAM MEMBER Ot 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 09/14/2016 CHERRI PENG SWAT TEAM MEMBER 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 10/11/2016 DEL BOBAN N Ot C61 MALIGNANT NEOPLASM OF PROSTATE 10/11/2016 DEL BOBAN N 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 10/11/2016 DEL BOBAN N Ot 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 10/24/2016 DEL BOBAN N Ot C61 MALIGNANT NEOPLASM OF PROSTATE 10/24/2016 DEL BOBAN N 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 10/24/2016 DEL BOBAN N Ot 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 11/21/2016 DEL BOBAN N Ot C61 MALIGNANT NEOPLASM OF PROSTATE 11/21/2016 DEL BOBAN N 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 11/21/2016 DEL BOBAN N Ot 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 11/22/2016 DEL, BOBAN N Ot C61 MALIGNANT NEOPLASM OF PROSTATE 11/22/2016 DEL BOBAN N 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 11/22/2016 DEL BOBAN N Ot Z79.899 OTHER FCI (CURRENT) DRUG THERAPY 02/20/2017 DEL, BOBAN N Ot C61 MALIGNANT NEOPLASM OF PROSTATE 02/20/2017 DEL, BOBAN N 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 02/20/2017 DEL BOBAN N Ot Z79.899 OTHER FCI (CURRENT) DRUG THERAPY 03/12/2017 DEL, BOBAN N Ot C61 MALIGNANT NEOPLASM OF PROSTATE 03/12/2017 DEL, BOBAN N 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 03/12/2017 DEL, BOBAN N Ot 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 03/13/2017 DEL, BOBAN N Ot C61 MALIGNANT NEOPLASM OF PROSTATE 03/13/2017 DEL, BOBAN N 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 03/13/2017 JESSICA MATHIS N Ot 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 03/14/2017 JESSICA MATHIS N Ot C61 MALIGNANT NEOPLASM OF PROSTATE 03/14/2017 JESSICA MATHIS N 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 03/14/2017 JESSICA MATHIS N Ot Z79.899 OTHER FCI (CURRENT) DRUG THERAPY 03/14/2017 JESSICA MATHIS N Ot C61 MALIGNANT NEOPLASM OF PROSTATE 03/14/2017 JESSICA MATHIS N 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 03/14/2017 JESSICA MATHIS N Ot 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 03/19/2017 JESSICA MATHIS N Ot C61 MALIGNANT NEOPLASM OF PROSTATE 03/19/2017 JESSICA MATHIS N 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 03/19/2017 JESSICA MATHIS N Ot 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 04/04/2017 HALIE LORENZO MD Ot R42 DIZZINESS AND GIDDINESS 04/04/2017 HALIE LORENZO MD Ot Z85.46 PERSONAL HISTORY OF MALIGNANT NEOPLASM O 04/11/2017 Ot 185 MALIGN NEOPL PROSTATE 04/11/2017 Ot V72.84 EXAM PRE- OPERATIVE NOS 04/11/2017 CHRISTIAN JOYCE, AKASH Galeano Ot V72.84 EXAM PRE-OPERATIVE NOS 04/11/2017 CHRISTIAN JOYCE, AKASH Galeano Ot 154.1 MALIGNANT NEOPL RECTUM 04/11/2017 AKASH GONZALES MD Ot 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 04/11/2017 CHRISTIAN JOYCE, AKASH Galeano Ot 562.10 DIVERTICULOSIS COLON (W/O MENT OF HEMORR 04/11/2017 AKASH GONZALES MD Ot V15.3 HX OF IRRADIATION 04/11/2017 JESSICA MATHIS N Ot 185 MALIGN NEOPL PROSTATE 04/11/2017 DEL BOBAN N Ot 793.7 NOSP (ABN) FINDINGS ON RADIOLOGICAL OT 04/11/2017 CHERRI PENG SWAT TEAM MEMBER Ot 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 04/11/2017 DEL BOBAN N Ot 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 04/11/2017 DELBOBBIAN N 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 04/11/2017 DEL BOBAN N Ot 781.91 LOSS OF HEIGHT 04/11/2017 DEL BOBBILUZ N Ot 185 MALIGN NEOPL PROSTATE 04/11/2017 DEL BOBBILUZ N 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 04/11/2017 DEL JESSICA N Ot 733.90 BONE CARTILAGE DIS NOS 04/11/2017 CHERRI PENG SWAT TEAM MEMBER Ot 185 MALIGN NEOPL PROSTATE 04/11/2017 CHERRI PENG SWAT TEAM MEMBER 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 04/11/2017 CHRISTIAN JOYCE, AKASH Galeano Ot 787.20 DYSPHAGIA, UNSPECIFIED 04/11/2017 CHRISTIAN JOYCE, AKASH Galeano Ot V72.84 EXAM PRE-OPERATIVE NOS 04/11/2017 CHERRI PENG SWAT TEAM MEMBER Ot C61 MALIGNANT NEOPLASM OF PROSTATE 04/11/2017 CHERRI PENG SWAT TEAM MEMBER 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 04/11/2017 CHERRI PENG SWAT TEAM MEMBER Ot 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, UNSPECIFIED 04/11/2017 CHERRI PENG SWAT TEAM MEMBER Ot R23.2 FLUSHING 04/11/2017 CHERRI PENG S SWAT TEAM MEMBER Ot Z79.899 OTHER [facility] (CURRENT) DRUG THERAPY 04/11/2017 DEL JESSICA N Ot C61 MALIGNANT NEOPLASM OF PROSTATE 04/11/2017 DELJESSICA N 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 04/11/2017 DELJESSICA N 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 04/11/2017 CHERRI PENG SWAT TEAM MEMBER Ot C61 MALIGNANT NEOPLASM OF PROSTATE 04/11/2017 CHERRI PENG SWAT TEAM MEMBER 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 04/11/2017 CHERRI PENG SWAT TEAM MEMBER Ot 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 04/11/2017 DEL JESSICA N Ot C61 MALIGNANT NEOPLASM OF PROSTATE 04/11/2017 DEL JESSICA N 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 04/11/2017 DEL JESSICA N Ot 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 04/12/2017 DEL JESSICA N Ot C61 MALIGNANT NEOPLASM OF PROSTATE 04/12/2017 DEL JESSICA N 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 04/12/2017 DELJESSICA N Ot Z79.899 OTHER [facility]CI (CURRENT) DRUG THERAPY 05/06/2017 DELJESSICA N Ot C61 MALIGNANT NEOPLASM OF PROSTATE 05/06/2017 DEL BOBAN N 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 05/06/2017 DEL BOBAN N Ot Z79.899 OTHER [facility]CI (CURRENT) DRUG THERAPY 06/26/2017 DEL BOBAN N Ot C61 MALIGNANT NEOPLASM OF PROSTATE 06/26/2017 DEL BOBAN N 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 06/26/2017 DEL BOBAN N Ot 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 07/10/2017 DEL BOBAN N Ot C61 MALIGNANT NEOPLASM OF PROSTATE 07/10/2017 DEL BOBAN N 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 07/10/2017 DEL BOBLUZ N Ot 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 08/02/2017 DEL BOBLUZ N Ot C61 MALIGNANT NEOPLASM OF PROSTATE 08/02/2017 DEL BOBAN N 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 08/02/2017 DEL BOBAN N Ot Z79.899 OTHER [facility]CI (CURRENT) DRUG THERAPY 09/06/2017 DELJESSICA N Ot C61 MALIGNANT NEOPLASM OF PROSTATE 09/06/2017 DEL BOBAN N 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 09/06/2017 DEL BOBAN N Ot Z79.899 OTHER [facility] (CURRENT) DRUG THERAPY 09/30/2017 DEL BOBLUZ N Ot C61 MALIGNANT NEOPLASM OF PROSTATE 09/30/2017 DEL BOBAN N 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 09/30/2017 DEL BOBAN N Ot Z79.899 OTHER [facility]CI (CURRENT) DRUG THERAPY 10/30/2017 DEL BOBAN N Ot C61 MALIGNANT NEOPLASM OF PROSTATE 10/30/2017 DEL BOBAN N 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 10/30/2017 DEL BOBAN N Ot Z79.899 OTHER FCI (CURRENT) DRUG THERAPY 10/31/2017 DEL BOBAN N Ot C61 MALIGNANT NEOPLASM OF PROSTATE 10/31/2017 DEL, BOBAN N 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 10/31/2017 JESSICA MATHIS N Ot 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 11/21/2017 Ot 185 MALIGN NEOPL PROSTATE 11/21/2017 Ot V72.84 EXAM PRE- OPERATIVE NOS 11/21/2017 AKASH GONZALES MD Ot V72.84 EXAM PRE-OPERATIVE NOS 11/21/2017 CHRISTIAN JOYCE, AKASH Galeano Ot 154.1 MALIGNANT NEOPL RECTUM 11/21/2017 AKASH GONZALES MD Ot 185 MALIGN NEOPL PROSTATE 11/21/2017 AKASH GONZALES MD Ot 562.10 DIVERTICULOSIS COLON (W/O MENT OF HEMORR 11/21/2017 AKASH GONZALES MD Ot V15.3 HX OF IRRADIATION 11/21/2017 JESSICA MATHIS N Ot 185 MALIGN NEOPL PROSTATE 11/21/2017 JESSICA MATHIS N Ot 793.7 NOSP (ABN) FINDINGS ON RADIOLOGICAL OT 11/21/2017 CHERRI PENG SW[employer] TE[employer] MEMBER Ot 185 MALIGN NEOPL PROSTATE 11/21/2017 DEL BOBAN N Ot 185 MALIGN NEOPL PROSTATE 11/21/2017 JESSICA MATHIS N Ot 198.5 SECONDARY MALIG KAARN BONE 11/21/2017 JESSICA MATHIS N Ot 781.91 LOSS OF HEIGHT 11/21/2017 JESSICA MATHIS N Ot 185 MALIGN NEOPL PROSTATE 11/21/2017 DEL BOBAN N 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 11/21/2017 BOBBI MATHISAN N Ot 733.90 BONE CARTILAGE DIS NOS 11/21/2017 CHERRI PENG SWAT TE[employer] MEMBER Ot 185 MALIGN NEOPL PROSTATE 11/21/2017 CHERRI PENG SWAT TEAM MEMBER 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 11/21/2017 CHRISTIAN JOYCE, AKASH Galeano Ot 787.20 DYSPHAGIA, UNSPECIFIED 11/21/2017 CHRISTIAN JOYCE, AKASH Galeano Ot V72.84 EXAM PRE-OPERATIVE NOS 11/21/2017 CHERRI PENG SWAT TEAM MEMBER Ot C61 MALIGNANT NEOPLASM OF PROSTATE 11/21/2017 CHERRI PENG SWAT TEAM MEMBER 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 11/21/2017 CHERRI PENG SWAT TEAM MEMBER Ot 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, UNSPECIFIED 11/21/2017 PENG, HILAH S SWAT TEAM MEMBER Ot R23.2 FLUSHING 11/21/2017 PENGCHERRI Fernandez S SWAT TEAM MEMBER Ot 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 11/21/2017 DELJESSICA GALARZA N Ot C61 MALIGNANT NEOPLASM OF PROSTATE 11/21/2017 DEL, BOBAN N 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 11/21/2017 DEL BOBAN N 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 11/21/2017 CHERRI PENG S SWAT TEAM MEMBER Ot C61 MALIGNANT NEOPLASM OF PROSTATE 11/21/2017 PENGVITORAH S SWAT TEAM MEMBER 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 11/21/2017 PENGCHERRI S SWAT TEAM MEMBER Ot Z79.899 OTHER FCI (CURRENT) DRUG THERAPY 01/03/2018 DELJESSICA N Ot C61 MALIGNANT NEOPLASM OF PROSTATE 01/03/2018 DEL BOBAN N 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 01/03/2018 DEL, BOBAN N Ot 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 01/29/2018 DEL BOBLUZ N Ot C61 MALIGNANT NEOPLASM OF PROSTATE 01/29/2018 DEL BOBAN N 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 01/29/2018 DEL BOBAN N Ot Z79.899 OTHER FCI (CURRENT) DRUG THERAPY 02/19/2018 DEL, BOBAN N Ot C61 MALIGNANT NEOPLASM OF PROSTATE 02/19/2018 DEL BOBAN N 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 02/19/2018 DEL BOBAN N Ot 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 02/20/2018 DEL, BOBAN N Ot C61 MALIGNANT NEOPLASM OF PROSTATE 02/20/2018 DEL, BOBAN N 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 02/20/2018 DEL, BOBAN N Ot Z79.899 OTHER FCI (CURRENT) DRUG THERAPY 03/17/2018 DEL, BOBAN N Ot C61 MALIGNANT NEOPLASM OF PROSTATE 03/17/2018 DEL, BOBAN N 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 03/17/2018 DEL, BOBAN N Ot Z79.899 OTHER FCI (CURRENT) DRUG THERAPY 04/04/2018 DEL, BOBAN N Ot C61 MALIGNANT NEOPLASM OF PROSTATE 04/04/2018 DELBOBBIAN N 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 04/04/2018 EDLBOBBIAN N Ot Z79.899 OTHER FCI (CURRENT) DRUG THERAPY 06/11/2018 DEL BOBAN N Ot C61 MALIGNANT NEOPLASM OF PROSTATE 06/11/2018 DEL BOBAN N 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 06/11/2018 DEL BOBAN N Ot 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 06/26/2018 DEL BOBAN N Ot C61 MALIGNANT NEOPLASM OF PROSTATE 06/26/2018 DEL BOBAN N 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 06/26/2018 DEL, BOBAN N Ot Z79.899 OTHER FCI (CURRENT) DRUG THERAPY 06/27/2018 DEL BOBAN N Ot C61 MALIGNANT NEOPLASM OF PROSTATE 06/27/2018 DEL BOBAN N 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 06/27/2018 DEL BOBAN N Ot Z79.899 OTHER FCI (CURRENT) DRUG THERAPY 07/02/2018 DEL BOBAN N Ot C61 MALIGNANT NEOPLASM OF PROSTATE 07/02/2018 DEL BOBAN N 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 07/02/2018 DEL BOBAN N Ot Z79.899 OTHER FCI (CURRENT) DRUG THERAPY 07/02/2018 CHRISTIAN JOYCE, AKASH Galeano Ot V72.84 EXAM PRE-OPERATIVE NOS 07/02/2018 CHRISTIAN JOYCE, AKASH Galeano Ot 154.1 MALIGNANT NEOPL RECTUM 07/02/2018 AKASH GONZALES MD Ot 185 MALIGN NEOPL PROSTATE 07/02/2018 AKASH GONZALES MD Ot 562.10 DIVERTICULOSIS COLON (W/O MENT OF HEMORR 07/02/2018 AKASH GONZALES MD, Ot V15.3 HX OF IRRADIATION 07/02/2018 DEL BOBAN N Ot 185 MALIGN NEOPL PROSTATE 07/02/2018 DEL, BOBAN N Ot 793.7 NOSP (ABN) FINDINGS ON RADIOLOGICAL OT 07/02/2018 CHERRI PENG SWAT TEAM MEMBER Ot 185 MALIGN NEOPL PROSTATE 07/02/2018 DEL BOBAN N Ot 185 MALIGN NEOPL PROSTATE 07/02/2018 DEL, BOBAN N 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 07/02/2018 JESSICA MATHIS N Ot 781.91 LOSS OF HEIGHT 07/02/2018 JESSICA MATHIS N Ot 185 MALIGN NEOPL PROSTATE 07/02/2018 JESSICA MATHIS N 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 07/02/2018 JESSICA MATHIS N Ot 733.90 BONE CARTILAGE DIS NOS 07/02/2018 CHERRI PENG SWAT TEAM MEMBER Ot 185 MALIGN NEOPL PROSTATE 07/02/2018 CHERRI PENG SWAT TEAM MEMBER 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 07/02/2018 CHRITSIAN JOYCE, AKASH Galeano Ot 787.20 DYSPHAGIA, UNSPECIFIED 07/02/2018 AKASH GONZALES MD Ot V72.84 EXAM PRE-OPERATIVE NOS 07/02/2018 CHERRI PENG SWAT TEAM MEMBER Ot C61 MALIGNANT NEOPLASM OF PROSTATE 07/02/2018 CHERRI PENG S SWAT TEAM MEMBER 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 07/02/2018 CHERRI PENG SWAT TEAM MEMBER Ot 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, UNSPECIFIED 07/02/2018 CHERRI PENG S SWAT TEAM MEMBER Ot R23.2 FLUSHING 07/02/2018 CHERRI PENG S SWAT TEAM MEMBER Ot Z79.899 OTHER FCI (CURRENT) DRUG THERAPY 07/02/2018 JESSICA MATHIS N Ot C61 MALIGNANT NEOPLASM OF PROSTATE 07/02/2018 JESSICA MATHIS N 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 07/02/2018 JESSICA MATHIS N 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 07/02/2018 CHERRI PENG S SWAT TEAM MEMBER Ot C61 MALIGNANT NEOPLASM OF PROSTATE 07/02/2018 CHERRI PENG S SWAT TEAM MEMBER 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 07/02/2018 CHERRI PENG S SWAT TEAM MEMBER Ot Z79.899 OTHER FCI (CURRENT) DRUG THERAPY 07/02/2018 BALDO WHEELER DC Ot 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 OR RADICULOPA 07/02/2018 BALDO WHEELER DC Ot M47.816 SPONDYLOSIS W/O MYELOPATHY OR RADICULOPA 07/02/2018 BALDO WHEELER DC Ot 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], THO 07/02/2018 BALDO WHEELER DC Ot M51.37 OTHER INTERVERTEBRAL DISC DEGENERATION, 07/02/2018 BALDO WHEELER DC Ot 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 07/02/2018 BALDO WHEELER DC Ot 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 07/02/2018 BALDO WHEELER DC Ot 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899 OTHER FCI (CURRENT) DRUG THERAPY 07/23/2018 BALDO WHEELER DC Ot 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 OR RADICULOPA 07/23/2018 BALDO WHEELER DC Ot M47.816 SPONDYLOSIS W/O MYELOPATHY OR RADICULOPA 07/23/2018 BALDO WHEELER DC Ot 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], THO 07/23/2018 BALDO WHEELER DC Ot M51.37 OTHER INTERVERTEBRAL DISC DEGENERATION, 07/23/2018 BALDO WHEELER DC Ot 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 07/23/2018 BALDO WHEELER DC Ot 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 07/23/2018 BALDO WHEELER DC Ot 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 07/29/2018 AMOL PIERSON MD Ot C61 MALIGNANT NEOPLASM OF PROSTATE 07/29/2018 AMOL PIERSON MD 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 07/29/2018 AMOL PIERSON MD 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 08/04/2018 LIAM SANTANA, BALDO Sigala Ot 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 OR RADICULOPA 08/04/2018 LIAM SANTANA, BALDO J Ot M47.816 SPONDYLOSIS W/O MYELOPATHY OR RADICULOPA 08/04/2018 BALDO WHEELER DC J Ot 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], THO 08/04/2018 TAYLA WHEELER DCA J Ot M51.37 OTHER INTERVERTEBRAL DISC DEGENERATION, 08/04/2018 BALDO WHEELER DC Ot 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 08/04/2018 BALDO WHEELER DC Ot 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 08/04/2018 BALDO WHEELER DC Ot 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 08/05/2018 CHRISTIAN JOYCE, AKASH Galeano Ot V72.84 EXAM PRE-OPERATIVE NOS 08/05/2018 CHRISTIAN JOYCE, AKASH Galeano Ot 154.1 MALIGNANT NEOPL RECTUM 08/05/2018 CHRISTIAN JOYCE, AKASH Galeano Ot 185 MALIGN NEOPL PROSTATE 08/05/2018 CHRISTIAN JOYCE, AKASH Galeano Ot 562.10 DIVERTICULOSIS COLON (W/O MENT OF HEMORR 08/05/2018 CHRISTIAN JOYCE, AKASH Galeano Ot V15.3 HX OF IRRADIATION 08/05/2018 JESSICA MATHIS N Ot 185 MALIGN NEOPL PROSTATE 08/05/2018 JESSICA MATHIS N Ot 793.7 NOSP (ABN) FINDINGS ON RADIOLOGICAL OT 08/05/2018 CHERRI PENG SWAT TEAM MEMBER Ot 185 MALIGN NEOPL PROSTATE 08/05/2018 BOBBI MATHISAN N Ot 185 MALIGN NEOPL PROSTATE 08/05/2018 JESSICA MATHIS N 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 08/05/2018 JESSICA MATHIS N Ot 781.91 LOSS OF HEIGHT 08/05/2018 DEL BOBAN N Ot 185 MALIGN NEOPL PROSTATE 08/05/2018 DELBOBBI GALARZAAN N 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 08/05/2018 JESSICA MATHIS N Ot 733.90 BONE CARTILAGE DIS NOS 08/05/2018 PENG, HILAH S SWAT TEAM MEMBER Ot 185 MALIGN NEOPL PROSTATE 08/05/2018 GINETTE CHERRI S SWAT TEAM MEMBER 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 08/05/2018 CHRISTIAN JOYCE, AKASH Galeano Ot 787.20 DYSPHAGIA, UNSPECIFIED 08/05/2018 CHRISTIAN JOYCE, AKASH Galeano Ot V72.84 EXAM PRE-OPERATIVE NOS 08/05/2018 CEHRRI PENG S SWAT TEAM MEMBER Ot C61 MALIGNANT NEOPLASM OF PROSTATE 08/05/2018 CHERRI PENG S SWAT TEAM MEMBER 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 08/05/2018 VITOR PENGNEYMAR S SWAT TEAM MEMBER Ot 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, UNSPECIFIED 08/05/2018 VITOR PENGNEYMAR S SWAT TEAM MEMBER Ot R23.2 FLUSHING 08/05/2018 VITOR PENGNEYMAR S SWAT TEAM MEMBER Ot 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 08/05/2018 JESSICA MATHIS N Ot C61 MALIGNANT NEOPLASM OF PROSTATE 08/05/2018 DELJESSICA N 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 08/05/2018 JESSICA MATHIS N 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 08/05/2018 CHERRI PENG Jim SWAT TEAM MEMBER Ot C61 MALIGNANT NEOPLASM OF PROSTATE 08/05/2018 GINETTE CHERRI Fernandez SWAT TEAM MEMBER 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 08/05/2018 GINETTE CHERRI Fernandez SWAT TEAM MEMBER Ot 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 08/05/2018 BALDO WHEELER DC Ot 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 OR RADICULOPA 08/05/2018 BALDO WHEELER DC, Ot M47.816 SPONDYLOSIS W/O MYELOPATHY OR RADICULOPA 08/05/2018 BALDO WHEELER DC Ot 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], THO 08/05/2018 BALDO WHEELER DC Ot M51.37 OTHER INTERVERTEBRAL DISC DEGENERATION, 08/05/2018 BALDO WHEELER DC, Ot 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 08/05/2018 BALDO WHEELER DC Ot 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 08/05/2018 WHEELER DC, BALDO J Ot 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 08/05/2018 AMOL PIERSON MD Ot C61 MALIGNANT NEOPLASM OF PROSTATE 08/05/2018 AMOL PIERSON MD, 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 08/05/2018 AMOL PIERSON MD 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 08/11/2018 AKASH GONZALES MD Ot C61 MALIGNANT NEOPLASM OF PROSTATE 08/11/2018 AKASH GONZALES MD Ot C78.00 SECONDARY MALIGNANT NEOPLASM OF UNSPECIF 08/11/2018 AKASH GONZALES MD Ot I67.82 CEREBRAL ISCHEMIA 08/11/2018 AKASH GONZALES MD Ot R51 HEADACHE 08/19/2018 AMOL PIERSON MD, Ot C61 MALIGNANT NEOPLASM OF PROSTATE 08/19/2018 AMOL PIERSON MD, 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 08/19/2018 AMOL PIERSON MD, 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 08/22/2018 AKASH GONZALES MD Ot R31.9 HEMATURIA, UNSPECIFIED 08/22/2018 AKASH GONZALES MD Ot R82.90 UNSPECIFIED ABNORMAL FINDINGS IN URINE 09/08/2018 JESSICA MATHIS Ot C61 MALIGNANT NEOPLASM OF PROSTATE 09/08/2018 JESSICA MATHIS 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 09/08/2018 JESSICA MATHIS 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 09/11/2018 AKASH GONZALES MD Ot R31.9 HEMATURIA, UNSPECIFIED 09/11/2018 AKASH GONZALES MD Ot R82.90 UNSPECIFIED ABNORMAL FINDINGS IN URINE 09/22/2018 AKASH GONZALES MD Ot C61 MALIGNANT NEOPLASM OF PROSTATE 09/22/2018 AKASH GONZALES MD Ot C78.00 SECONDARY MALIGNANT NEOPLASM OF UNSPECIF 09/22/2018 AKASH GONZALES MD Ot I67.82 CEREBRAL ISCHEMIA 09/22/2018 AKASH GONZALES MD Ot R51 HEADACHE 10/02/2018 JESSICA MATHIS Ot C61 MALIGNANT NEOPLASM OF PROSTATE 10/02/2018 JESSICA MATHIS N 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 Results Test Result Range Complete urinalysis with reflex to culture - 04/04/17 13:39 Urine color determination YELLOW NRG Urine clarity determination CLEAR NRG Urine pH measurement by test strip 7 5-9 Specific gravity of urine by test strip 1.010 1.016- 1.022 Urine protein assay by test strip, semi-quantitative [...] 14:08 Blood leukocytes automated count (number/volume) 4.8 10*3/uL 4.3-11.0 Blood erythrocytes automated count (number/volume) 3.99 10*6/uL 4.35-5.85 Venous blood hemoglobin measurement (mass/volume) 12.0 [...] Automated blood platelet mean volume measurement 9.0 [foz_us] 7.4-10.4 Automated blood neutrophils/100 leukocytes 59 % [...] Serum or plasma sodium measurement (moles/volume) 143 mmol/L 135-145 Serum or plasma potassium measurement (moles/volume) 3.9 mmol/L 3.6-5.0 Serum or plasma chloride measurement (moles/volume) 108 mmol/L 98-107 Carbon dioxide 28 mmol/L 21-32 Serum or plasma anion gap determination (moles/volume) 7 mmol/L 5-14 Serum or plasma urea nitrogen measurement (mass/volume) 15 mg/dL 7-18 Serum or plasma creatinine measurement (mass/volume) 1.05 mg/dL 0.60-1.30 Serum or plasma urea nitrogen/creatinine mass ratio 14 0 -20 Serum or plasma creatinine measurement with calculation [...] plasma albumin measurement (mass/volume) 3.8 g/dL 3.2-4.5 Complete urinalysis with reflex to culture - 08/21/18 14:20 Urine color determination YELLOW NRG Urine clarity determination VERY CLOUDY NRG Urine pH measurement by test strip 7 5-9 Specific gravity of urine by test strip 1.010 1.016- 1.022 Urine protein assay by test strip, semi-quantitative 2+ NEGATIVE Urine glucose detection by automated test strip NEGATIVE NEGATIVE Erythrocytes detection in urine sediment by light microscopy 5+ NEGATIVE Urine ketones detection by automated test strip NEGATIVE NEGATIVE Urine nitrite detection by test strip NEGATIVE NEGATIVE Urine total bilirubin detection by test strip NEGATIVE NEGATIVE Urine urobilinogen measurement by automated test strip (mass/volume) NORMAL NORMAL Urine leukocyte esterase detection by dipstick 3+ NEGATIVE Automated urine sediment erythrocyte count by microscopy (number/high power field) [HPF] NRG Automated urine sediment leukocyte count by microscopy (number/high power field ) > [HPF] NRG Bacteria detection in urine sediment by light microscopy FEW NRG Squamous epithelial cells detection in urine sediment by light microscopy RARE NRG Crystals detection in urine sediment by light microscopy NONE NRG Casts detection in urine sediment by light microscopy NONE NRG Mucus detection in urine sediment by light microscopy NEGATIVE NRG Complete urinalysis with reflex to culture YES NRG Renal epithelial cells detection in urine sediment by light microscopy NONE NRG Bacterial urine culture - 08/21/18 14:20 Bacterial urine culture NG NRG Encounters ACCT No. Visit Date/Time Discharge Status Pt. Type Provider Facility Loc./Unit Complaint [id number] 09/20/2014 00:00:00 09/20/2014 23:59:59 CLS Outpatient DONAVAN ALANIZ DDS [id number] 10/16/2018 14:41:00 10/16/2018 23:59:59 CLS Outpatient DEL JESSICA Paulino [facility] ONC [id number] 08/21/2018 13:53:00 08/21/2018 23:59:59 CLS Outpatient AKASH GONZALES MD [facility] LAB HEMATURIA [id number] 08/06/2018 12:16:00 08/06/2018 23:59:59 CLS Outpatient AKASH GONZALES MD [facility] RAD DIZZINESS,NAUSEA, PROSTATE CA W/ LUNG METASIS [id number] 07/03/2018 13:38:00 07/13/2018 00:01:00 DIS Outpatient AMOL PIERSON MD [facility] ONC [id number] 07/08/2018 12:04:00 07/08/2018 23:59:59 CLS Outpatient AMOL PIERSON MD [facility] CARD C61 PROSTATE CA [id number] 06/26/2018 10:59:00 07/02/2018 15:58:00 DIS Outpatient JESSICA MATHIS N [facility] ONC [id number] 06/30/2018 10:09:00 06/30/2018 23:59:59 CLS Outpatient LIAM SANTANA, BALDO Sigala [facility] RAD M54.2 [id number] 03/20/2018 13:06:00 06/11/2018 00:01:00 DIS Outpatient JESSICA MATHIS N [facility] ONC [id number] 12/26/2017 13:08:00 02/19/2018 00:01:00 DIS Outpatient DELJESSICA GALARZA [facility] ONC [id number] 08/08/2017 10:37:00 10/30/2017 00:01:00 DIS Outpatient DELJESSICA GALARZA [facility] ONC [id number] 04/18/2017 13:09:00 07/10/2017 00:01:00 DIS Outpatient DEL, JESSICA Paulino [facility] ONC [id number] 04/04/2017 13:24:00 04/04/2017 15:24:00 DIS Emergency BJ JOYCE, HALIE Jensen [facility] ER WILY TESSALLS [id number] 12/20/2016 13:02:00 03/13/2017 00:01:00 DIS Outpatient JESSICA MATHIS [facility] ONC [id number] 08/30/2016 09:37:00 11/21/2016 00:01:00 DIS Outpatient DEL, JESSICA Paulino [facility] ONC [id number] 05/11/2016 10:03:00 07/23/2016 14:53:00 DIS Outpatient JESSICA MATHIS [facility] ONC [id number] 05/11/2016 10:00:00 05/11/2016 23:59:59 CLS Outpatient CHERRI PENG [facility] ONC [id number] 03/23/2016 07:06:00 03/23/2016 09:05:00 DIS Outpatient AKASH GONZALES MD Via [facility] FOLLOW UP PROSTATE CANCER [id number] 03/22/2016 06:09:00 03/22/2016 08:56:00 DIS Outpatient AKASH GONZALES MD [facility] PREOP FOLLOW UP PROSTATE CANCER [id number] 02/16/2016 09:50:00 02/22/2016 00:01:00 DIS Outpatient JESSICA MATHIS [facility] ONC [id number] 02/10/2016 10:24:00 02/10/2016 23:59:59 CLS Outpatient JESSICA MATHIS [facility] CARD PROSTATE CA [id number] 11/17/2015 10:57:00 11/23/2015 00:01:00 DIS Outpatient JESSICA MATHIS [facility] ONC [id number] 09/01/2015 13:06:00 09/01/2015 23:59:59 CLS Outpatient CHERRI PENG [facility] ONC [id number] 06/09/2015 13:10:00 07/13/2015 00:01:00 DIS Outpatient JESSICA MATHIS [facility] ONC [id number] 05/31/2015 08:36:00 05/31/2015 11:45:00 DIS Outpatient [facility] DYSPHAG[facility] [id number] 05/27/2015 05:44:00 05/27/2015 23:59:59 CLS Outpatient AKASH GONZALES MD [facility] PREOP DYSPHAGIA [id number] 03/17/2015 10:04:00 03/23/2015 00:01:00 DIS Outpatient JESSICA MATHIS [facility] ONC [id number] 03/17/2015 10:10:00 03/17/2015 23:59:59 CLS Outpatient CHERRI PENG [facility] ONC [id number] 03/10/2015 08:07:00 03/10/2015 23:59:59 CLS Outpatient JESSICA MATHIS [facility] CARD 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 [id number] 03/10/2015 08:03:00 03/10/2015 23:59:59 CLS Outpatient JESSICA MATHIS [facility] RAD OSTEOPOROSIS BY MEDICATIONS [id number] 09/30/2014 13:56:00 11/21/2014 00:01:00 DIS Outpatient JESSICA MATHIS [facility] ONC [id number] 11/11/2014 10:21:00 11/11/2014 12:28:00 DIS Emergency HALIE LORENZO MD [facility] ER LEFT LEG INJURY [id number] 09/30/2014 02:45:00 09/30/2014 23:59:59 CLS Outpatient CHERRI PENG [facility] ONC [id number] 08/30/2014 10:42:00 08/30/2014 23:59:59 CLS Outpatient JESSICA MATHIS [facility] CARD COLON CA [id number] 08/16/2014 12:53:00 08/16/2014 17:03:00 DIS Emergency AGNES CALHOUN MD [facility] ER URINARY TROUBLE [id number] 08/10/2014 07:47:00 08/10/2014 23:59:59 CLS Outpatient AKASH GONZALES MD [facility] SDC RECTAL MASS [id number] 08/06/2014 07:08:00 08/06/2014 23:59:59 CLS Outpatient AKASH GONZALES MD [facility] PREOP RECTAL MASS [id number] 12/23/2012 06:53:00 Document Registration [id number] 12/19/2012 08:09:00 Document Registration [id number] 08/15/2012 10:54:00 Document Registration [id number] 06/13/2011 09:33:00 Document Registration
[2018-10-21] MEDS ORDERED: ONDANSETRON 4 MG (ZOFRAN) ORAL DISSOLVE TAB PO ONE (04:00)
[2018-10-21] MEDS ORDERED: ONDANSETRON 4 MG/2 ML (SDV) Z0FRAN IVP ONE (04:00)
[2018-10-21] MEDS ORDERED: SCOPOLAMINE 1.5 MG (TRANSDERM-SCOP) PATCH TD ONE (04:00)
[2018-10-21 04:03] LABS: BASOPHILS # (AUTO) 0.1 10^3/uL (0.0-0.1); BASOPHILS % (AUTO) 1 % (0-10); EOSINOPHILS # (AUTO) 0.5 10^3/uL (0.0-0.3); EOSINOPHILS % (AUTO) 10 % (0-10); HEMATOCRIT 36 % (40-54); HEMOGLOBIN 12.3 G/DL (13.3-17.7); LYMPHOCYTES # (AUTO) 1.2 X 10^3 (1.0-4.0); LYMPHOCYTES % (AUTO) 22 % (12-44); MEAN CORPUSCULAR HEMOGLOBIN 30 PG (25-34); MEAN CORPUSCULAR HGB CONC 34 G/DL (32-36); MEAN CORPUSCULAR VOLUME 89 FL (80-99); MEAN PLATELET VOLUME 8.2 FL (7.4-10.4); MONOCYTES # (AUTO) 0.6 X 10^3 (0.0-1.0); MONOCYTES % (AUTO) 12 % (0-12); NEUTROPHILS # (AUTO) 2.9 X 10^3 (1.8-7.8); NEUTROPHILS % (AUTO) 55 % (42-75); PLATELET COUNT 311 10^3/uL (130-400); RED BLOOD COUNT 4.07 10^6/uL (4.35-5.85); RED CELL DISTRIBUTION WIDTH 12.3 % (10.0-14.5); WHITE BLOOD COUNT 5.2 10^3/uL (4.3-11.0)
[2018-10-21 04:15] LABS: PROTHROMBIN TIME PATIENT 12.7 SEC (12.2-14.7)
[2018-10-21 04:22] LABS: ALANINE AMINOTRANSFERASE 9 U/L (0-55); ALKALINE PHOSPHATASE 106 U/L (40-136); BILIRUBIN,TOTAL 0.6 MG/DL (0.1-1.0); BUN/CREATININE RATIO 16; CALCIUM 9.6 MG/DL (8.5-10.1); CARBON DIOXIDE 25 MMOL/L (21-32); CHLORIDE 109 MMOL/L (98-107); CREATINE KINASE 59 U/L (30-200); CREATININE SERUM 0.88 MG/DL (0.60-1.30); GFR ESTIMATED > 60; GLUCOSE 96 MG/DL (70-105); MAGNESIUM 2.1 MG/DL (1.8-2.4); POTASSIUM 3.7 MMOL/L (3.6-5.0); SODIUM 145 MMOL/L (135-145); TOTAL PROTEIN 6.7 GM/DL (6.4-8.2)
[2018-10-21 04:29] LABS: CREATINE KINASE MB 1.4 NG/ML (<6.6)
[2018-10-21 04:43] LABS: BILIRUBIN,URINE NEGATIVE (NEGATIVE); CLARITY,URINE CLEAR; COLOR,URINE YELLOW; GLUCOSE, URINE (UA) NEGATIVE (NEGATIVE); KETONES,URINE NEGATIVE (NEGATIVE); LEUKOCYTE ESTERASE ,URINE NEGATIVE (NEGATIVE); NITRITE,URINE NEGATIVE (NEGATIVE); PH,URINE 8 (5-9); PROTEIN,URINE NEGATIVE (NEGATIVE); UROBILINOGEN,URINE NORMAL (NORMAL)
[2018-10-21 04:50] LABS: BACTERIA,URINE FEW /HPF; SQUAMOUS EPITHELIAL CELL,UR RARE /HPF
[2018-10-21] MEDS ORDERED: MECLIZINE 25 MG (ANTIVERT) TAB PO ONE (05:15)
--- NOTE | 2018-10-21 05:15 | NUR ---
PT CLEANSED OF URINE, PT VERBALIZED FREQUENT FEELINGS OF NEEDING TO URINATE BUT NEVER COMPLETLEY VOIDS.
[2018-10-21] MEDS ORDERED: DIAZEPAM 5 MG (VALIUM) TABLET PO ONE (05:45)
--- OUTSIDE RECORDS SUMMARY | 2018-10-21 06:29 | XMS REPORT | Continuity of Care Document ---
Author Author Formerly [facility] Address Unknown Phone Unavailable Allergies Active Description Code Type Severity Reaction Onset Reported/Identified Relationship to Patient Clinical Status Yes No Known Drug Allergies [id number] Drug Allergy Unknown N/A 12/23/2012 Medications There [...] 10/18/2014 DELJESSICA GALARZA N Ot 185 10/22/2014 CHRISTINA JOYCE, AKASH Galeano Ot 154.1 10/22/2014 CHRISTIAN JOYCE, AKASH Galeano Ot 185 10/22/2014 CHRISTIAN JOYCE, AKASH Galeano Ot 562.10 10/22/2014 CHRISTIAN JOYCE, AKASH Galeano Ot V15.3 10/22/2014 DELJESSICA GALARZA N Ot 185 11/03/2014 CHERRI PENG AIRLINE FLIGHT ATTENDANT Ot 185 11/08/2014 CHERRI PENG AIRLINE FLIGHT ATTENDANT Ot 185 11/11/2014 BJ JOYCE, HALIE Jensen [...] 02/16/2015 Ot 185 02/16/2015 Ot V72.84 02/16/2015 CHRISTINA JOYCE, AKASH Galeano Ot V72.84 02/16/2015 CHRISTIAN JOYCE, AKASH Galeano Ot 154.1 02/16/2015 CHRISTIAN JOYCE, AKASH Galeano Ot 185 02/16/2015 CHRISTIAN JOYCE, AKASH Galeano Ot 562.10 02/16/2015 CHRISTIAN JOYCE, AKASH Galeano Ot V15.3 02/16/2015 DELJESSICA GALARZA N Ot 185 02/16/2015 DELBOBBI GALARZAAN N Ot 793.7 02/16/2015 CHERRI PENG AIRLINE FLIGHT ATTENDANT Ot 185 02/16/2015 DEL, BOBAN N Ot [...] N Ot 793.7 02/24/2015 CHERRI PENG S AIRLINE FLIGHT ATTENDANT Ot 185 02/24/2015 DEL, BOBAN N Ot [...] N Ot 793.7 02/24/2015 CHERRI PENG S AIRLINE FLIGHT ATTENDANT Ot 185 02/24/2015 DEL, BOBAN N Ot [...] N Ot 793.7 03/02/2015 VITOR PENGAH S AIRLINE FLIGHT ATTENDANT Ot 185 03/02/2015 DEL, BOBAN N Ot [...] N Ot 733.90 03/25/2015 PENG, HILAH S AIRLINE FLIGHT ATTENDANT Ot 185 03/25/2015 PENG, HILAH S AIRLINE FLIGHT ATTENDANT Ot 198.5 03/25/2015 DEL, BOBAN N Ot [...] N Ot 793.7 04/06/2015 PENG, VITORAH S AIRLINE FLIGHT ATTENDANT Ot 185 04/06/2015 DEL, BOBAN N Ot 185 04/06/2015 DEL, BOBAN N Ot 198.5 04/06/2015 DEL, BOBAN N Ot 781.91 04/06/2015 DEL, BOBAN N Ot 185 04/06/2015 DEL, BOBAN N Ot 198.5 04/06/2015 DEL, BOBAN N Ot 733.90 04/06/2015 PENG, VITORAH S AIRLINE FLIGHT ATTENDANT Ot 185 04/06/2015 PENG, VITORAH S AIRLINE FLIGHT ATTENDANT Ot 198.5 04/06/2015 DEL, BOBAN N Ot 185 04/06/2015 DEL, BOBAN N Ot V58.69 04/06/2015 PENG, HILAH S AIRLINE FLIGHT ATTENDANT Ot 185 04/06/2015 PENG, HILAH S AIRLINE FLIGHT ATTENDANT Ot 198.5 04/26/2015 PENG, HILAH S AIRLINE FLIGHT ATTENDANT Ot 185 04/26/2015 PENG, HILAH S AIRLINE FLIGHT ATTENDANT Ot 198.5 05/10/2015 DEL, BOBAN N Ot [...] BOBAN N Ot 793.7 05/26/2015 CHERRI PENG AIRLINE FLIGHT ATTENDANT Ot 185 05/26/2015 DEL, BOBAN N Ot 185 05/26/2015 DEL, BOBAN N Ot 198.5 05/26/2015 DEL, BOBAN N Ot 781.91 05/26/2015 DEL, BOBAN N Ot 185 05/26/2015 DEL, BOBAN N Ot 198.5 05/26/2015 DLE, BOBAN N Ot 733.90 05/26/2015 CHERRI PENG AIRLINE FLIGHT ATTENDANT Ot 185 05/26/2015 CHERRI PENG AIRLINE FLIGHT ATTENDANT Ot 198.5 05/26/2015 DEL, BOBAN N Ot [...] V58.69 OT MED,LT,CURRENT USE 09/21/2015 CHERRI PENG AIRLINE FLIGHT ATTENDANT Ot C61 09/21/2015 CHERRI PENG AIRLINE FLIGHT ATTENDANT Ot C79.51 09/21/2015 CHERRI PENG AIRLINE FLIGHT ATTENDANT Ot E55.9 09/21/2015 CHERRI PENG AIRLINE FLIGHT ATTENDANT Ot R23.2 09/21/2015 CHERRI PENG S AIRLINE FLIGHT ATTENDANT Ot Z79.899 10/11/2015 CHERIR PENG S AIRLINE FLIGHT ATTENDANT Ot C61 10/11/2015 CHERRI PENG S AIRLINE FLIGHT ATTENDANT Ot C79.51 10/11/2015 CHERRI PENG AIRLINE FLIGHT ATTENDANT Ot E55.9 10/11/2015 CHERRI PENG S AIRLINE FLIGHT ATTENDANT Ot R23.2 10/11/2015 CHERRI PENG S AIRLINE FLIGHT ATTENDANT Ot Z79.899 10/25/2015 DEL, BOBAN N Ot [...] 11/23/2015 DEL, BOBAN N Ot Z79.899 OTHER AUDIT 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) DRUG THERAPY 11/28/2015 DEL, BOBAN N [...] V72.84 EXAM PRE- OPERATIVE NOS 02/10/2016 CHRISTIAN JYOCE, AKASH Galeano Ot V72.84 EXAM PRE-OPERATIVE NOS [...] ON RADIOLOGICAL OT 02/10/2016 CHERRI PENG S AIRLINE FLIGHT ATTENDANT Ot 185 MALIGN NEOPL PROSTATE 02/10/2016 DEL, [...] BONE CARTILAGE DIS NOS 02/10/2016 CHERRI PENG AIRLINE FLIGHT ATTENDANT Ot 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 02/10/2016 CHERRI PENG AIRLINE FLIGHT ATTENDANT 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 02/10/2016 CHRISTIAN JOYCE, AKASH Galeano Ot 787.20 DYSPHAGIA, UNSPECIFIED 02/10/2016 CHRISTIAN JOYCE, AKASH Galeano Ot V72.84 EXAM PRE-OPERATIVE NOS 02/10/2016 CHERRI PENG S AIRLINE FLIGHT ATTENDANT Ot C61 MALIGNANT NEOPLASM OF PROSTATE 02/10/2016 CHERRI PENG AIRLINE FLIGHT ATTENDANT 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 02/10/2016 CHERRI PENG AIRLINE FLIGHT ATTENDANT Ot 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, UNSPECIFIED 02/10/2016 CHERRI PENG AIRLINE FLIGHT ATTENDANT Ot R23.2 FLUSHING 02/10/2016 PENGCHERRI Fernandez S AIRLINE FLIGHT ATTENDANT Ot Z79.899 OTHER RETIREMENT (CURRENT) DRUG THERAPY 02/10/2016 EDL BOBAN N Ot C61 MALIGNANT NEOPLASM OF PROSTATE 02/10/2016 DEL, BOBAN N 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 02/10/2016 DEL BOBAN N Ot Z79.899 OTHER RETIREMENT (CURRENT) DRUG THERAPY 02/13/2016 DEL BOBAN N [...] 02/22/2016 DEL, BOBAN N Ot Z79.899 OTHER AUDIT 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) DRUG THERAPY 03/01/2016 DEL, BOBAN N [...] ON RADIOLOGICAL OT 03/05/2016 VITOR PENGAH S AIRLINE FLIGHT ATTENDANT Ot 185 MALIGN NEOPL PROSTATE 03/05/2016 DEL [...] CARTILAGE DIS NOS 03/05/2016 CHERRI PENG S AIRLINE FLIGHT ATTENDANT Ot 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 03/05/2016 CHERRI PENG S AIRLINE FLIGHT ATTENDANT 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 03/05/2016 CHRISTIAN JOYCE, AKASH Galeano Ot 787.20 DYSPHAGIA, UNSPECIFIED 03/05/2016 AKASH GONZALES MD Ot V72.84 EXAM PRE-OPERATIVE NOS 03/05/2016 CHERRI PENG S AIRLINE FLIGHT ATTENDANT Ot C61 MALIGNANT NEOPLASM OF PROSTATE 03/05/2016 CHERRI PENG S AIRLINE FLIGHT ATTENDANT 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 03/05/2016 CHERRI PENG S AIRLINE FLIGHT ATTENDANT Ot 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, UNSPECIFIED 03/05/2016 CHERRI PENG S AIRLINE FLIGHT ATTENDANT Ot R23.2 FLUSHING 03/05/2016 CHERRI PENG S AIRLINE FLIGHT ATTENDANT Ot Z79.899 OTHER RETIREMENT (CURRENT) DRUG THERAPY 03/05/2016 BOBBI MATHISAN N [...] 03/05/2016 JESSICA MATHIS N Ot Z79.899 OTHER AUDIT 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) DRUG THERAPY 03/13/2016 Ot 788.41 URINARY [...] FINDINGS ON RADIOLOGICAL OT 03/13/2016 CHERRI PENG AIRLINE FLIGHT ATTENDANT Ot 185 MALIGN NEOPL PROSTATE 03/13/2016 DEL [...] BONE CARTILAGE DIS NOS 03/13/2016 CHERRI PENG AIRLINE FLIGHT ATTENDANT Ot 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 03/13/2016 CHERRI PENG AIRLINE FLIGHT ATTENDANT 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 03/13/2016 CHRISTIAN JOYCE, AKASH Galeano Ot 787.20 DYSPHAGIA, UNSPECIFIED 03/13/2016 CHRISTIAN JOYCE, AKASH Galeano Ot V72.84 EXAM PRE-OPERATIVE NOS 03/13/2016 PENG, HILAH S AIRLINE FLIGHT ATTENDANT Ot C61 MALIGNANT NEOPLASM OF PROSTATE 03/13/2016 CHERRI PENG AIRLINE FLIGHT ATTENDANT 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 03/13/2016 CHERRI PENG AIRLINE FLIGHT ATTENDANT Ot 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, UNSPECIFIED 03/13/2016 CHERRI PENG AIRLINE FLIGHT ATTENDANT Ot R23.2 FLUSHING 03/13/2016 CHERRI PENG AIRLINE FLIGHT ATTENDANT Ot Z79.899 OTHER RETIREMENT (CURRENT) DRUG THERAPY 03/13/2016 JESSICA MATHIS N Ot C61 MALIGNANT NEOPLASM OF PROSTATE 03/13/2016 JESSICA MATHIS N 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 03/13/2016 DEL JESSICA N 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 03/13/2016 DELJESSICA N Ot C61 MALIGNANT NEOPLASM OF PROSTATE 03/13/2016 DEL JESSICA N 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 03/13/2016 JESSICA MATHIS N Ot Z79.899 OTHER RETIREMENT (CURRENT) DRUG THERAPY 03/21/2016 Ot 788.41 URINARY [...] FINDINGS ON RADIOLOGICAL OT 03/21/2016 CHERRI PENG AIRLINE FLIGHT ATTENDANT Ot 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 03/21/2016 DELJESSICA [...] BONE CARTILAGE DIS NOS 03/21/2016 PENGCHERRI S AIRLINE FLIGHT ATTENDANT Ot 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 03/21/2016 PENGCHERRI S AIRLINE FLIGHT ATTENDANT 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 03/21/2016 AKASH GONZALES MD Ot 787.20 DYSPHAGIA, UNSPECIFIED 03/21/2016 AKASH GONZALES MD Ot V72.84 EXAM PRE-OPERATIVE NOS 03/21/2016 PENGCHERRI S AIRLINE FLIGHT ATTENDANT Ot C61 MALIGNANT NEOPLASM OF PROSTATE 03/21/2016 PENGVITORAH S AIRLINE FLIGHT ATTENDANT 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 03/21/2016 CHERRI PENG S AIRLINE FLIGHT ATTENDANT Ot 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, UNSPECIFIED 03/21/2016 CHERRI PENG S AIRLINE FLIGHT ATTENDANT Ot R23.2 FLUSHING 03/21/2016 CHERRI PENG S AIRLINE FLIGHT ATTENDANT Ot Z79.899 OTHER AUDIT 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) DRUG THERAPY 03/21/2016 JESSICA MATHIS N [...] 03/21/2016 JESSICA MATHIS N Ot Z79.899 OTHER AUDIT 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) DRUG THERAPY 03/22/2016 AKASH GONZALES MD [...] ON RADIOLOGICAL OT 03/23/2016 CHERRI PENG S AIRLINE FLIGHT ATTENDANT Ot 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 03/23/2016 DEL, [...] CARTILAGE DIS NOS 03/23/2016 CHERRI PENG S AIRLINE FLIGHT ATTENDANT Ot 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 03/23/2016 CHERRI PENG S AIRLINE FLIGHT ATTENDANT 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 03/23/2016 AKASH GONZALES MD Ot 787.20 DYSPHAGIA, UNSPECIFIED 03/23/2016 AKASH GONZALES MD Ot V72.84 EXAM PRE-OPERATIVE NOS 03/23/2016 CHERRI PENG AIRLINE FLIGHT ATTENDANT Ot C61 MALIGNANT NEOPLASM OF PROSTATE 03/23/2016 CHERRI PENG AIRLINE FLIGHT ATTENDANT 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 03/23/2016 CHERRI PENG AIRLINE FLIGHT ATTENDANT Ot 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, UNSPECIFIED 03/23/2016 CHERRI PENG AIRLINE FLIGHT ATTENDANT Ot R23.2 FLUSHING 03/23/2016 CHERRI PENG AIRLINE FLIGHT ATTENDANT Ot Z79.899 OTHER RETIREMENT (CURRENT) DRUG THERAPY 03/23/2016 JESSICA MATHIS N [...] 03/23/2016 JESSICA MATHIS N Ot Z79.899 OTHER RETIREMENT (CURRENT) DRUG THERAPY 03/27/2016 AKASH GONZALES MD [...] ON RADIOLOGICAL OT 04/03/2016 CHERRI PENG S AIRLINE FLIGHT ATTENDANT Ot 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 04/03/2016 DEL [...] BONE CARTILAGE DIS NOS 04/03/2016 CHERRI PENG AIRLINE FLIGHT ATTENDANT Ot 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 04/03/2016 CHERRI PENG S AIRLINE FLIGHT ATTENDANT 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 04/03/2016 CHRISTIAN JOYCE, AKASH Galeano Ot 787.20 DYSPHAGIA, UNSPECIFIED 04/03/2016 CHRISTIAN JOYCE, AKASH Galeano Ot V72.84 EXAM PRE-OPERATIVE NOS 04/03/2016 CHERRI PENG AIRLINE FLIGHT ATTENDANT Ot C61 MALIGNANT NEOPLASM OF PROSTATE 04/03/2016 CHERRI PENG AIRLINE FLIGHT ATTENDANT 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 04/03/2016 CHERRI PENG AIRLINE FLIGHT ATTENDANT Ot 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, UNSPECIFIED 04/03/2016 CHERRI PENG AIRLINE FLIGHT ATTENDANT Ot R23.2 FLUSHING 04/03/2016 CHERRI PENG AIRLINE FLIGHT ATTENDANT Ot Z79.899 OTHER RETIREMENT (CURRENT) DRUG THERAPY 04/03/2016 DELJESSICA GALARZA N Ot C61 MALIGNANT NEOPLASM OF PROSTATE 04/03/2016 DEL, JESSICA N 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 04/03/2016 DELJESSICA N 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 04/03/2016 DEL BOBAN N Ot C61 MALIGNANT NEOPLASM OF PROSTATE 04/03/2016 DEL, BOBBIAN N 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 04/03/2016 DEL BOBBIAN N Ot Z79.899 OTHER RETIREMENT (CURRENT) DRUG THERAPY 04/10/2016 Ot 788.41 URINARY [...] FINDINGS ON RADIOLOGICAL OT 04/10/2016 CHERRI PENG AIRLINE FLIGHT ATTENDANT Ot 185 MALIGN NEOPL PROSTATE 04/10/2016 DELBOBBI [...] BONE CARTILAGE DIS NOS 04/10/2016 CHERRI PENG AIRLINE FLIGHT ATTENDANT Ot 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 04/10/2016 CHERRI PENG AIRLINE FLIGHT ATTENDANT 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 04/10/2016 CHRISTIAN JOYCE, AKASH Galeano Ot 787.20 DYSPHAGIA, UNSPECIFIED 04/10/2016 CHRISTIAN JOYCE, AKASH Galeano Ot V72.84 EXAM PRE-OPERATIVE NOS 04/10/2016 CHERRI PENG AIRLINE FLIGHT ATTENDANT Ot C61 MALIGNANT NEOPLASM OF PROSTATE 04/10/2016 CHERRI PENG AIRLINE FLIGHT ATTENDANT 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 04/10/2016 CHERRI PENG AIRLINE FLIGHT ATTENDANT Ot 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, UNSPECIFIED 04/10/2016 CHERRI PENG AIRLINE FLIGHT ATTENDANT Ot R23.2 FLUSHING 04/10/2016 CHERRI PENG AIRLINE FLIGHT ATTENDANT Ot Z79.899 OTHER AUDIT 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) DRUG THERAPY 04/10/2016 JESSICA MATHIS N [...] 04/10/2016 JESSICA MATHIS N Ot Z79.899 OTHER RETIREMENT (CURRENT) DRUG THERAPY 04/12/2016 Ot 788.41 URINARY [...] ON RADIOLOGICAL OT 04/12/2016 CHERRI PENG S AIRLINE FLIGHT ATTENDANT Ot 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 04/12/2016 DEL BOBAN N Ot 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 04/12/2016 DEL BOBAN N 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 04/12/2016 BOBBI MATHISAN N Ot 781.91 LOSS OF HEIGHT 04/12/2016 DEL BOBAN N Ot 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 04/12/2016 DEL BOBAN N 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 04/12/2016 DEL BOBAN N Ot 733.90 BONE CARTILAGE DIS NOS 04/12/2016 CHERIR PENG S AIRLINE FLIGHT ATTENDANT Ot 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 04/12/2016 CHERRI PENG AIRLINE FLIGHT ATTENDANT 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 04/12/2016 CHRISTIAN JOYCE, AKASH Galeano Ot 787.20 DYSPHAGIA, UNSPECIFIED 04/12/2016 CHRISTIAN JOYCE, AKASH Galeano Ot V72.84 EXAM PRE-OPERATIVE NOS 04/12/2016 CHERRI PENG AIRLINE FLIGHT ATTENDANT Ot C61 MALIGNANT NEOPLASM OF PROSTATE 04/12/2016 CHERRI PENG AIRLINE FLIGHT ATTENDANT 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 04/12/2016 CHERRI PENG AIRLINE FLIGHT ATTENDANT Ot 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, UNSPECIFIED 04/12/2016 CHERRI PENG AIRLINE FLIGHT ATTENDANT Ot R23.2 FLUSHING 04/12/2016 CHERRI PENG AIRLINE FLIGHT ATTENDANT Ot Z79.899 OTHER RETIREMENT (CURRENT) DRUG THERAPY 04/12/2016 JESSICA MATHIS N [...] 04/12/2016 JESSICA MATHIS N Ot Z79.899 OTHER RETIREMENT (CURRENT) DRUG THERAPY 05/04/2016 JESSICA MATHIS N Ot C61 MALIGNANT NEOPLASM OF PROSTATE 05/04/2016 DEL BOBAN N 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 05/04/2016 JESSICA MATHIS N Ot Z79.899 OTHER AUDIT 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) DRUG THERAPY 05/07/2016 Ot 788.41 URINARY [...] FINDINGS ON RADIOLOGICAL OT 05/07/2016 CHERRI PENG AIRLINE FLIGHT ATTENDANT Ot 185 MALIGN NEOPL PROSTATE 05/07/2016 DEL [...] CARTILAGE DIS NOS 05/07/2016 CHERRI PENG S AIRLINE FLIGHT ATTENDANT Ot 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 05/07/2016 CHERRI PENG S AIRLINE FLIGHT ATTENDANT 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 05/07/2016 CHRISTIAN JOYCE, AKASH Galeano Ot 787.20 DYSPHAGIA, UNSPECIFIED 05/07/2016 CHRISTIAN JOYCE, AKASH Galaeno Ot V72.84 EXAM PRE-OPERATIVE NOS 05/07/2016 CHERRI PENG AIRLINE FLIGHT ATTENDANT Ot C61 MALIGNANT NEOPLASM OF PROSTATE 05/07/2016 CHERRI PENG AIRLINE FLIGHT ATTENDANT 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 05/07/2016 CHERRI PENG AIRLINE FLIGHT ATTENDANT Ot 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, UNSPECIFIED 05/07/2016 CHERRI PENG AIRLINE FLIGHT ATTENDANT Ot R23.2 FLUSHING 05/07/2016 CHERRI PENG AIRLINE FLIGHT ATTENDANT Ot Z79.899 OTHER AUDIT 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) DRUG THERAPY 05/07/2016 DELJESSICA GALARZA N [...] 05/07/2016 DEL, BOBAN N Ot Z79.899 OTHER RETIREMENT (CURRENT) DRUG THERAPY 05/08/2016 Ot 788.41 URINARY [...] ON RADIOLOGICAL OT 05/08/2016 CHERRI PENG S AIRLINE FLIGHT ATTENDANT Ot 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 05/08/2016 DEL [...] CARTILAGE DIS NOS 05/08/2016 CHERRI PENG S AIRLINE FLIGHT ATTENDANT Ot 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 05/08/2016 CHERRI PENG S AIRLINE FLIGHT ATTENDANT 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 05/08/2016 CHRISTIAN JOYCE, AKASH Galeano Ot 787.20 DYSPHAGIA, UNSPECIFIED 05/08/2016 CHRISTIAN JOYCE, AKASH Galeano Ot V72.84 EXAM PRE-OPERATIVE NOS 05/08/2016 CHERRI PENG S AIRLINE FLIGHT ATTENDANT Ot C61 MALIGNANT NEOPLASM OF PROSTATE 05/08/2016 CHERRI PENG S AIRLINE FLIGHT ATTENDANT 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 05/08/2016 CHERRI PENG AIRLINE FLIGHT ATTENDANT Ot 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, UNSPECIFIED 05/08/2016 CHERRI PENG S AIRLINE FLIGHT ATTENDANT Ot R23.2 FLUSHING 05/08/2016 CHERRI PENG AIRLINE FLIGHT ATTENDANT Ot Z79.899 OTHER RETIREMENT (CURRENT) DRUG THERAPY 05/08/2016 JESSICA MATHIS N [...] 05/08/2016 JESSICA MATHIS N Ot Z79.899 OTHER RETIREMENT (CURRENT) DRUG THERAPY 05/11/2016 Ot 788.41 URINARY [...] ON RADIOLOGICAL OT 05/11/2016 CHERRI PENG S AIRLINE FLIGHT ATTENDANT Ot 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 05/11/2016 DEL [...] CARTILAGE DIS NOS 05/11/2016 CHERRI PENG S AIRLINE FLIGHT ATTENDANT Ot 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 05/11/2016 CHERRI PENG S AIRLINE FLIGHT ATTENDANT 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 05/11/2016 CHRISTIAN JOYCE, AKASH Galeano Ot 787.20 DYSPHAGIA, UNSPECIFIED 05/11/2016 CHRISTIAN JOYCE, AKASH Galeano Ot V72.84 EXAM PRE-OPERATIVE NOS 05/11/2016 CHERRI PENG AIRLINE FLIGHT ATTENDANT Ot C61 MALIGNANT NEOPLASM OF PROSTATE 05/11/2016 CHERRI PENG AIRLINE FLIGHT ATTENDANT 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 05/11/2016 CHERRI PENG AIRLINE FLIGHT ATTENDANT Ot 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, UNSPECIFIED 05/11/2016 CHERRI PENG AIRLINE FLIGHT ATTENDANT Ot R23.2 FLUSHING 05/11/2016 CHERRI PENG AIRLINE FLIGHT ATTENDANT Ot Z79.899 OTHER AUDIT 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) DRUG THERAPY 05/11/2016 JESSICA MATHIS N [...] 05/11/2016 JESSICA MATHIS N Ot Z79.899 OTHER AUDIT 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) DRUG THERAPY 05/14/2016 CHERRI PENG AIRLINE FLIGHT ATTENDANT Ot C61 MALIGNANT NEOPLASM OF PROSTATE 05/14/2016 CHERRI PENG AIRLINE FLIGHT ATTENDANT 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 05/14/2016 CHERRI PENG AIRLINE FLIGHT ATTENDANT Ot Z79.899 OTHER RETIREMENT (CURRENT) DRUG THERAPY 05/29/2016 Ot 788.41 URINARY [...] ON RADIOLOGICAL OT 05/29/2016 CHERRI PENG S AIRLINE FLIGHT ATTENDANT Ot 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 05/29/2016 DEL BOBBILUZ N Ot 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 05/29/2016 DEL BOBLUZ N 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 05/29/2016 JESSICA MATHIS N Ot 781.91 LOSS OF HEIGHT 05/29/2016 JESSICA MATHIS N Ot 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 05/29/2016 EJSSICA MATHIS N 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 05/29/2016 BOBBI MATHISAN N Ot 733.90 BONE CARTILAGE DIS NOS 05/29/2016 CEHRRI PENG S AIRLINE FLIGHT ATTENDANT Ot 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 05/29/2016 CHERRI PENG S AIRLINE FLIGHT ATTENDANT 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 05/29/2016 CHRISTIAN JOYCE, AKASH Galeano Ot 787.20 DYSPHAGIA, UNSPECIFIED 05/29/2016 AKASH GONZALES MD Ot V72.84 EXAM PRE-OPERATIVE NOS 05/29/2016 CHERRI PENG AIRLINE FLIGHT ATTENDANT Ot C61 MALIGNANT NEOPLASM OF PROSTATE 05/29/2016 CHERRI PENG S AIRLINE FLIGHT ATTENDANT 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 05/29/2016 CHERRI PENG AIRLINE FLIGHT ATTENDANT Ot 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, UNSPECIFIED 05/29/2016 CHERRI PENG S AIRLINE FLIGHT ATTENDANT Ot R23.2 FLUSHING 05/29/2016 CHERRI PENG S AIRLINE FLIGHT ATTENDANT Ot Z79.899 OTHER AUDIT 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) DRUG THERAPY 05/29/2016 JESSICA MATHIS N [...] 05/29/2016 DEL BOBAN N Ot Z79.899 OTHER AUDIT 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) DRUG THERAPY 05/29/2016 CHERRI PENG S AIRLINE FLIGHT ATTENDANT Ot C61 MALIGNANT NEOPLASM OF PROSTATE 05/29/2016 CHERRI PENG S AIRLINE FLIGHT ATTENDANT 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 05/29/2016 CHERRI PENG AIRLINE FLIGHT ATTENDANT Ot Z79.899 OTHER RETIREMENT (CURRENT) DRUG THERAPY 06/05/2016 JESSICA MATHIS N Ot C61 MALIGNANT NEOPLASM OF PROSTATE 06/05/2016 BOBBI MATHISAN N 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 06/05/2016 JESSICA MATHIS N Ot Z79.899 OTHER RETIREMENT (CURRENT) DRUG THERAPY 06/05/2016 Ot 788.41 URINARY [...] ON RADIOLOGICAL OT 06/05/2016 CHERRI PENG S AIRLINE FLIGHT ATTENDANT Ot 185 MALIGN NEOPL PROSTATE 06/05/2016 DEL, [...] CARTILAGE DIS NOS 06/05/2016 CHERRI PENG S AIRLINE FLIGHT ATTENDANT Ot 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 06/05/2016 CHERRI PENG S AIRLINE FLIGHT ATTENDANT 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 06/05/2016 CHRISTIAN JOYCE, AKASH Galeano Ot 787.20 DYSPHAGIA, UNSPECIFIED 06/05/2016 CHRISTIAN JOYCE, AKASH Galeano Ot V72.84 EXAM PRE-OPERATIVE NOS 06/05/2016 CHERRI PENG AIRLINE FLIGHT ATTENDANT Ot C61 MALIGNANT NEOPLASM OF PROSTATE 06/05/2016 CHERRI PENG AIRLINE FLIGHT ATTENDANT 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 06/05/2016 CHERRI PENG AIRLINE FLIGHT ATTENDANT Ot 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, UNSPECIFIED 06/05/2016 CHERRI PENG AIRLINE FLIGHT ATTENDANT Ot R23.2 FLUSHING 06/05/2016 CHERRI PENG AIRLINE FLIGHT ATTENDANT Ot Z79.899 OTHER AUDIT 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) DRUG THERAPY 06/05/2016 JESSICA MATHIS N [...] 06/05/2016 JESSICA MATHIS N Ot Z79.899 OTHER RETIREMENT (CURRENT) DRUG THERAPY 06/05/2016 CHERRI PENG AIRLINE FLIGHT ATTENDANT Ot C61 MALIGNANT NEOPLASM OF PROSTATE 06/05/2016 CHERRI PENG AIRLINE FLIGHT ATTENDANT 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 06/05/2016 CHERRI PENG AIRLINE FLIGHT ATTENDANT Ot Z79.899 OTHER RETIREMENT (CURRENT) DRUG THERAPY 06/05/2016 JESSICA MATHIS N Ot C61 MALIGNANT NEOPLASM OF PROSTATE 06/05/2016 JESSICA MATHIS N 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 06/05/2016 JESSICA MATHIS N Ot Z79.899 OTHER RETIREMENT (CURRENT) DRUG THERAPY 06/05/2016 JESSICA MATHIS N Ot C61 MALIGNANT NEOPLASM OF PROSTATE 06/05/2016 DELJESSICA GALARZA N 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 06/05/2016 DELJESSICA GALARZA N Ot Z79.899 OTHER AUDIT 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) DRUG THERAPY 06/06/2016 CHERRI PENG AIRLINE FLIGHT ATTENDANT Ot C61 MALIGNANT NEOPLASM OF PROSTATE 06/06/2016 CHERRI PENG AIRLINE FLIGHT ATTENDANT 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 06/06/2016 CHERRI PENG AIRLINE FLIGHT ATTENDANT Ot Z79.899 OTHER AUDIT 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) DRUG THERAPY 06/15/2016 Ot 788.41 URINARY FREQUENCY 06/15/2016 Ot 185 MALIGN NEOPL PROSTATE 06/15/2016 Ot V72.84 EXAM PRE- OPERATIVE NOS 06/15/2016 AKASH GONZALES MD Ot V72.84 EXAM PRE-OPERATIVE NOS 06/15/2016 AKASH GONZALES MD Ot 154.1 MALIGNANT NEOPL RECTUM 06/15/2016 AKASH GONZALES MD Ot 185 MALIGN NEOPL PROSTATE 06/15/2016 AKASH GONZAELS MD Ot 562.10 DIVERTICULOSIS COLON (W/O MENT OF HEMORR 06/15/2016 AKASH GONZALES MD Ot V15.3 HX OF IRRADIATION 06/15/2016 DEL, BOBAN N Ot 185 MALIGN NEOPL PROSTATE 06/15/2016 DEL BOBAN N Ot 793.7 NOSP (ABN) FINDINGS ON RADIOLOGICAL OT 06/15/2016 CHERRI PENG AIRLINE FLIGHT ATTENDANT Ot 185 MALIGN NEOPL PROSTATE 06/15/2016 DEL [...] CARTILAGE DIS NOS 06/15/2016 CHERRI PENG S AIRLINE FLIGHT ATTENDANT Ot 185 MALIGN NEOPL PROSTATE 06/15/2016 CHERRI PENG S AIRLINE FLIGHT ATTENDANT 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 06/15/2016 CHRISTIAN JOYCE, AKASH Galeano Ot 787.20 DYSPHAGIA, UNSPECIFIED 06/15/2016 AKASH GONZALES MD Ot V72.84 EXAM PRE-OPERATIVE NOS 06/15/2016 CHERRI PENG AIRLINE FLIGHT ATTENDANT Ot C61 MALIGNANT NEOPLASM OF PROSTATE 06/15/2016 CHERRI PENG AIRLINE FLIGHT ATTENDANT 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 06/15/2016 CHERRI PENG AIRLINE FLIGHT ATTENDANT Ot 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, UNSPECIFIED 06/15/2016 CHERRI PENG [employer] FLIGHT ATTENDANT Ot R23.2 FLUSHING 06/15/2016 CHERRI PENG [employer] FLIGHT ATTENDANT Ot Z79.899 OTHER RETIREMENT (CURRENT) DRUG THERAPY 06/15/2016 JESSICA MATHIS N [...] 06/15/2016 JESSICA MATHIS N Ot Z79.899 OTHER RETIREMENT (CURRENT) DRUG THERAPY 06/15/2016 PENGCHERRI S AIRLINE FLIGHT ATTENDANT Ot C61 MALIGNANT NEOPLASM OF PROSTATE 06/15/2016 PENGCHRERI S AIRLINE FLIGHT ATTENDANT 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 06/15/2016 PENGVITORAH S AIRLINE FLIGHT ATTENDANT Ot Z79.899 OTHER AUDIT 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) DRUG THERAPY 07/23/2016 Ot 788.41 URINARY [...] FINDINGS ON RADIOLOGICAL OT 07/23/2016 PENGCHERRI S AIRLINE FLIGHT ATTENDANT Ot 185 MALIGN NEOPL PROSTATE 07/23/2016 DELBOBBIAN N Ot 185 MALIGN NEOPL PROSTATE 07/23/2016 DEL BOBAN N 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 07/23/2016 BOBBI MATHISAN N Ot 781.91 LOSS OF HEIGHT 07/23/2016 DELBOBBIAN N Ot 185 MALIGN NEOPL PROSTATE 07/23/2016 DEL BOBAN N 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 07/23/2016 DELJESSICA GALARZA N Ot 733.90 BONE CARTILAGE DIS NOS 07/23/2016 CHERRI PENG AIRLINE FLIGHT ATTENDANT Ot 185 MALIGN NEOPL PROSTATE 07/23/2016 CHERRI PENG S AIRLINE FLIGHT ATTENDANT 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 07/23/2016 AKASH GONZALES MD Ot 787.20 DYSPHAGIA, UNSPECIFIED 07/23/2016 AKASH GONZALES MD Ot V72.84 EXAM PRE-OPERATIVE NOS 07/23/2016 CHERRI PENG S AIRLINE FLIGHT ATTENDANT Ot C61 MALIGNANT NEOPLASM OF PROSTATE 07/23/2016 CHERRI PENG S AIRLINE FLIGHT ATTENDANT 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 07/23/2016 CHERRI PENG AIRLINE FLIGHT ATTENDANT Ot 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, UNSPECIFIED 07/23/2016 CHERRI PENG S AIRLINE FLIGHT ATTENDANT Ot R23.2 FLUSHING 07/23/2016 CHERRI PENG S AIRLINE FLIGHT ATTENDANT Ot Z79.899 OTHER RETIREMENT (CURRENT) DRUG THERAPY 07/23/2016 BOBBI MATHISLUZ N [...] 07/23/2016 DELJESSICA GALARZA N Ot Z79.899 OTHER AUDIT 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) DRUG THERAPY 07/23/2016 CHERRI PENG S AIRLINE FLIGHT ATTENDANT Ot C61 MALIGNANT NEOPLASM OF PROSTATE 07/23/2016 CHERRI PENG S AIRLINE FLIGHT ATTENDANT 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 07/23/2016 CHERRI PENG S AIRLINE FLIGHT ATTENDANT Ot Z79.899 OTHER RETIREMENT (CURRENT) DRUG THERAPY 07/23/2016 DELBOBBIAN N Ot C61 MALIGNANT NEOPLASM OF PROSTATE 07/23/2016 DELBOBBIAN N Ot C79.51 SECONDARY MALIGNANT NEOPLASM OF BONE 07/23/2016 DELJESSICA GALARZA N Ot Z79.899 OTHER RETIREMENT (CURRENT) DRUG THERAPY 08/24/2016 JESSICA MATHIS N Ot C61 MALIGNANT NEOPLASM OF PROSTATE 08/24/2016 DELJESSICA GALARZA N Ot C79.51 SECONDARY MALIGNANT NEOPLASM OF BONE 08/24/2016 DELBOBBIAN N Ot Z79.899 OTHER RETIREMENT (CURRENT) DRUG THERAPY 09/14/2016 PENGCHERRI Fernandez AIRLINE FLIGHT ATTENDANT Ot 185 MALIGN NEOPL PROSTATE 09/14/2016 CHERRI PENG AIRLINE FLIGHT ATTENDANT 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 10/11/2016 DEL BOBAN N Ot C61 MALIGNANT NEOPLASM OF PROSTATE 10/11/2016 DEL BOBAN N Ot C79.51 SECONDARY MALIGNANT NEOPLASM OF BONE 10/11/2016 DEL BOBAN N Ot Z79.899 OTHER AUDIT 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) DRUG THERAPY 10/24/2016 DEL BOBAN N Ot C61 MALIGNANT NEOPLASM OF PROSTATE 10/24/2016 DEL BOBAN N Ot C79.51 SECONDARY MALIGNANT NEOPLASM OF BONE 10/24/2016 DEL BOBAN N Ot Z79.899 OTHER AUDIT 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) DRUG THERAPY 11/21/2016 DEL BOBAN N Ot C61 MALIGNANT NEOPLASM OF PROSTATE 11/21/2016 DEL BOBAN N Ot C79.51 SECONDARY MALIGNANT NEOPLASM OF BONE 11/21/2016 DEL BOBAN N Ot Z79.899 OTHER AUDIT 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) DRUG THERAPY 11/22/2016 DEL, BOBAN N Ot C61 MALIGNANT NEOPLASM OF PROSTATE 11/22/2016 DEL BOBAN N Ot C79.51 SECONDARY MALIGNANT NEOPLASM OF BONE 11/22/2016 DEL BOBAN N Ot Z79.899 OTHER RETIREMENT (CURRENT) DRUG THERAPY 02/20/2017 DEL, BOBAN N Ot C61 MALIGNANT NEOPLASM OF PROSTATE 02/20/2017 DEL, BOBAN N Ot C79.51 SECONDARY MALIGNANT NEOPLASM OF BONE 02/20/2017 DEL BOBAN N Ot Z79.899 OTHER RETIREMENT (CURRENT) DRUG THERAPY 03/12/2017 DEL, BOBAN N Ot C61 MALIGNANT NEOPLASM OF PROSTATE 03/12/2017 DEL, BOBAN N Ot C79.51 SECONDARY MALIGNANT NEOPLASM OF BONE 03/12/2017 DEL, BOBAN N Ot Z79.899 OTHER AUDIT 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) DRUG THERAPY 03/13/2017 DEL, BOBAN N Ot C61 MALIGNANT NEOPLASM OF PROSTATE 03/13/2017 DEL, BOBAN N Ot C79.51 SECONDARY MALIGNANT NEOPLASM OF BONE 03/13/2017 JESSICA MATHIS N Ot Z79.899 OTHER AUDIT 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) DRUG THERAPY 03/14/2017 JESSICA MATHIS N Ot C61 MALIGNANT NEOPLASM OF PROSTATE 03/14/2017 JESSICA MATHIS N Ot C79.51 SECONDARY MALIGNANT NEOPLASM OF BONE 03/14/2017 JESSICA MATHIS N Ot Z79.899 OTHER RETIREMENT (CURRENT) DRUG THERAPY 03/14/2017 JESSICA MATHIS N Ot C61 MALIGNANT NEOPLASM OF PROSTATE 03/14/2017 JESSICA MATHIS N Ot C79.51 SECONDARY MALIGNANT NEOPLASM OF BONE 03/14/2017 JESSICA MATHIS N Ot Z79.899 OTHER AUDIT 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) DRUG THERAPY 03/19/2017 JESSICA MATHIS N Ot C61 MALIGNANT NEOPLASM OF PROSTATE 03/19/2017 JESSICA MATHIS N Ot C79.51 SECONDARY MALIGNANT NEOPLASM OF BONE 03/19/2017 JESSICA MATHIS N Ot Z79.899 OTHER AUDIT 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) DRUG THERAPY 04/04/2017 HALIE LORENZO MD Ot R42 DIZZINESS AND GIDDINESS 04/04/2017 HALIE LORENZO MD Ot Z85.46 PERSONAL HISTORY OF MALIGNANT NEOPLASM O 04/11/2017 Ot 185 MALIGN NEOPL PROSTATE 04/11/2017 Ot V72.84 EXAM PRE- OPERATIVE NOS 04/11/2017 CHRISTIAN JOYCE, AKASH Galeano Ot V72.84 EXAM PRE-OPERATIVE NOS 04/11/2017 CHRISTIAN JOYCE, AKASH Galaeno Ot 154.1 MALIGNANT NEOPL RECTUM 04/11/2017 AKASH GONZALES MD Ot 185 MALIGN NEOPL PROSTATE 04/11/2017 CHRISTIAN JOYCE, AKASH Galeano Ot 562.10 DIVERTICULOSIS COLON (W/O MENT OF HEMORR 04/11/2017 AKASH GONZALES MD Ot V15.3 HX OF IRRADIATION 04/11/2017 JESSICA MATHIS N Ot 185 MALIGN NEOPL PROSTATE 04/11/2017 DEL BOBAN N Ot 793.7 NOSP (ABN) FINDINGS ON RADIOLOGICAL OT 04/11/2017 CHERRI PENG AIRLINE FLIGHT ATTENDANT Ot 185 MALIGN NEOPL PROSTATE 04/11/2017 DEL BOBAN N Ot 185 MALIGN NEOPL PROSTATE 04/11/2017 DELBBOBIAN N 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 04/11/2017 DEL BOBAN N Ot 781.91 LOSS OF HEIGHT 04/11/2017 DEL BOBBILUZ N Ot 185 MALIGN NEOPL PROSTATE 04/11/2017 DEL BOBBILUZ N 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 04/11/2017 DEL JESSICA N Ot 733.90 BONE CARTILAGE DIS NOS 04/11/2017 CHERRI PENG AIRLINE FLIGHT ATTENDANT Ot 185 MALIGN NEOPL PROSTATE 04/11/2017 CHERIR PENG AIRLINE FLIGHT ATTENDANT 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 04/11/2017 CHRISTIAN JOYCE, AKASH Galeano Ot 787.20 DYSPHAGIA, UNSPECIFIED 04/11/2017 CHRISTIAN JOYCE, AKASH Galeano Ot V72.84 EXAM PRE-OPERATIVE NOS 04/11/2017 CHERRI PENG AIRLINE FLIGHT ATTENDANT Ot C61 MALIGNANT NEOPLASM OF PROSTATE 04/11/2017 CHERRI PENG AIRLINE FLIGHT ATTENDANT Ot C79.51 SECONDARY MALIGNANT NEOPLASM OF BONE 04/11/2017 CHERRI PENG AIRLINE FLIGHT ATTENDANT Ot 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, UNSPECIFIED 04/11/2017 CHERRI PENG AIRLINE FLIGHT ATTENDANT Ot R23.2 FLUSHING 04/11/2017 CHERRI PENG S AIRLINE FLIGHT ATTENDANT Ot Z79.899 OTHER RETIREMENT (CURRENT) DRUG THERAPY 04/11/2017 DEL JESSICA N Ot C61 MALIGNANT NEOPLASM OF PROSTATE 04/11/2017 DELJESSICA N 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 04/11/2017 DELJESSICA N Ot C79.51 SECONDARY MALIGNANT NEOPLASM OF BONE 04/11/2017 CHERRI PENG AIRLINE FLIGHT ATTENDANT Ot C61 MALIGNANT NEOPLASM OF PROSTATE 04/11/2017 CHERRI PENG AIRLINE FLIGHT ATTENDANT Ot C79.51 SECONDARY MALIGNANT NEOPLASM OF BONE 04/11/2017 CHERRI PENG AIRLINE FLIGHT ATTENDANT Ot Z79.899 OTHER AUDIT 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) DRUG THERAPY 04/11/2017 DEL JESSICA N Ot C61 MALIGNANT NEOPLASM OF PROSTATE 04/11/2017 DEL JESSICA N Ot C79.51 SECONDARY MALIGNANT NEOPLASM OF BONE 04/11/2017 DEL JESSICA N Ot Z79.899 OTHER AUDIT 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) DRUG THERAPY 04/12/2017 DEL JESSICA N Ot C61 MALIGNANT NEOPLASM OF PROSTATE 04/12/2017 DEL JESSICA N Ot C79.51 SECONDARY MALIGNANT NEOPLASM OF BONE 04/12/2017 DELJESSICA N Ot Z79.899 OTHER RETIREMENT (CURRENT) DRUG THERAPY 05/06/2017 DELJESSICA N Ot C61 MALIGNANT NEOPLASM OF PROSTATE 05/06/2017 DEL BOBAN N Ot C79.51 SECONDARY MALIGNANT NEOPLASM OF BONE 05/06/2017 DEL BOBAN N Ot Z79.899 OTHER RETIREMENT (CURRENT) DRUG THERAPY 06/26/2017 DEL BOBAN N Ot C61 MALIGNANT NEOPLASM OF PROSTATE 06/26/2017 DEL BOBAN N Ot C79.51 SECONDARY MALIGNANT NEOPLASM OF BONE 06/26/2017 DEL BOBAN N Ot Z79.899 OTHER AUDIT 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) DRUG THERAPY 07/10/2017 DEL BOBAN N Ot C61 MALIGNANT NEOPLASM OF PROSTATE 07/10/2017 DEL BOBAN N Ot C79.51 SECONDARY MALIGNANT NEOPLASM OF BONE 07/10/2017 DEL BOBLUZ N Ot Z79.899 OTHER AUDIT 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) DRUG THERAPY 08/02/2017 DEL BOBLUZ N Ot C61 MALIGNANT NEOPLASM OF PROSTATE 08/02/2017 DEL BOBAN N Ot C79.51 SECONDARY MALIGNANT NEOPLASM OF BONE 08/02/2017 DEL BOBAN N Ot Z79.899 OTHER RETIREMENT (CURRENT) DRUG THERAPY 09/06/2017 DELJESSICA N Ot C61 MALIGNANT NEOPLASM OF PROSTATE 09/06/2017 DEL BOBAN N Ot C79.51 SECONDARY MALIGNANT NEOPLASM OF BONE 09/06/2017 DEL BOBAN N Ot Z79.899 OTHER RETIREMENT (CURRENT) DRUG THERAPY 09/30/2017 DEL BOBLUZ N Ot C61 MALIGNANT NEOPLASM OF PROSTATE 09/30/2017 DEL BOBAN N Ot C79.51 SECONDARY MALIGNANT NEOPLASM OF BONE 09/30/2017 DEL BOBAN N Ot Z79.899 OTHER RETIREMENT (CURRENT) DRUG THERAPY 10/30/2017 DEL BOBAN N Ot C61 MALIGNANT NEOPLASM OF PROSTATE 10/30/2017 DEL BOBAN N Ot C79.51 SECONDARY MALIGNANT NEOPLASM OF BONE 10/30/2017 DEL BOBAN N Ot Z79.899 OTHER RETIREMENT (CURRENT) DRUG THERAPY 10/31/2017 DEL BOBAN N Ot C61 MALIGNANT NEOPLASM OF PROSTATE 10/31/2017 DEL, BOBAN N Ot C79.51 SECONDARY MALIGNANT NEOPLASM OF BONE 10/31/2017 JESSICA MATHIS N Ot Z79.899 OTHER AUDIT 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) DRUG THERAPY 11/21/2017 Ot 185 MALIGN [...] FINDINGS ON RADIOLOGICAL OT 11/21/2017 CHERRI PENG AIRLINE FLIGHT ATTENDANT Ot 185 MALIGN NEOPL PROSTATE 11/21/2017 DEL BOBAN N Ot 185 MALIGN NEOPL PROSTATE 11/21/2017 JESSICA MATHIS N 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 11/21/2017 JESSICA MATHIS N Ot 781.91 LOSS OF HEIGHT 11/21/2017 JESSICA MATHIS N Ot 185 MALIGN NEOPL PROSTATE 11/21/2017 DEL BOBAN N 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 11/21/2017 BOBBI MATHISAN N Ot 733.90 BONE CARTILAGE DIS NOS 11/21/2017 CHERRI PENG AIRLINE FLIGHT ATTENDANT Ot 185 MALIGN NEOPL PROSTATE 11/21/2017 CHERRI PENG AIRLINE FLIGHT ATTENDANT 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 11/21/2017 CHRISTIAN JOYCE, AKASH Galeano Ot 787.20 DYSPHAGIA, UNSPECIFIED 11/21/2017 CHRISTIAN JOYCE, AKASH Galeano Ot V72.84 EXAM PRE-OPERATIVE NOS 11/21/2017 CHERRI PENG AIRLINE FLIGHT ATTENDANT Ot C61 MALIGNANT NEOPLASM OF PROSTATE 11/21/2017 CHERRI PENG AIRLINE FLIGHT ATTENDANT Ot C79.51 SECONDARY MALIGNANT NEOPLASM OF BONE 11/21/2017 CHERRI PENG AIRLINE FLIGHT ATTENDANT Ot 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, UNSPECIFIED 11/21/2017 PENG, HILAH S AIRLINE FLIGHT ATTENDANT Ot R23.2 FLUSHING 11/21/2017 PENGCHERRI Fernandez S AIRLINE FLIGHT ATTENDANT Ot Z79.899 OTHER AUDIT 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) DRUG THERAPY 11/21/2017 DELJESSICA GALARZA N Ot C61 MALIGNANT NEOPLASM OF PROSTATE 11/21/2017 DEL, BOBAN N 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 11/21/2017 DEL BOBAN N Ot C79.51 SECONDARY MALIGNANT NEOPLASM OF BONE 11/21/2017 CHERRI PENG S AIRLINE FLIGHT ATTENDANT Ot C61 MALIGNANT NEOPLASM OF PROSTATE 11/21/2017 PENGVITORAH S AIRLINE FLIGHT ATTENDANT Ot C79.51 SECONDARY MALIGNANT NEOPLASM OF BONE 11/21/2017 PENGCHERRI S AIRLINE FLIGHT ATTENDANT Ot Z79.899 OTHER RETIREMENT (CURRENT) DRUG THERAPY 01/03/2018 DELJESSICA N Ot C61 MALIGNANT NEOPLASM OF PROSTATE 01/03/2018 DEL BOBAN N Ot C79.51 SECONDARY MALIGNANT NEOPLASM OF BONE 01/03/2018 DEL, BOBAN N Ot Z79.899 OTHER AUDIT 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) DRUG THERAPY 01/29/2018 DEL BOBLUZ N Ot C61 MALIGNANT NEOPLASM OF PROSTATE 01/29/2018 DEL BOBAN N Ot C79.51 SECONDARY MALIGNANT NEOPLASM OF BONE 01/29/2018 DEL BOBAN N Ot Z79.899 OTHER RETIREMENT (CURRENT) DRUG THERAPY 02/19/2018 DEL, BOBAN N Ot C61 MALIGNANT NEOPLASM OF PROSTATE 02/19/2018 DEL BOBAN N Ot C79.51 SECONDARY MALIGNANT NEOPLASM OF BONE 02/19/2018 DEL BOBAN N Ot Z79.899 OTHER AUDIT 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) DRUG THERAPY 02/20/2018 DEL, BOBAN N Ot C61 MALIGNANT NEOPLASM OF PROSTATE 02/20/2018 DEL, BOBAN N Ot C79.51 SECONDARY MALIGNANT NEOPLASM OF BONE 02/20/2018 DEL, BOBAN N Ot Z79.899 OTHER RETIREMENT (CURRENT) DRUG THERAPY 03/17/2018 DEL, BOBAN N Ot C61 MALIGNANT NEOPLASM OF PROSTATE 03/17/2018 DEL, BOBAN N Ot C79.51 SECONDARY MALIGNANT NEOPLASM OF BONE 03/17/2018 DEL, BOBAN N Ot Z79.899 OTHER RETIREMENT (CURRENT) DRUG THERAPY 04/04/2018 DEL, BOBAN N Ot C61 MALIGNANT NEOPLASM OF PROSTATE 04/04/2018 DELBOBBIAN N Ot C79.51 SECONDARY MALIGNANT NEOPLASM OF BONE 04/04/2018 DELBOBBIAN N Ot Z79.899 OTHER RETIREMENT (CURRENT) DRUG THERAPY 06/11/2018 DEL BOBAN N Ot C61 MALIGNANT NEOPLASM OF PROSTATE 06/11/2018 DEL BOBAN N Ot C79.51 SECONDARY MALIGNANT NEOPLASM OF BONE 06/11/2018 DEL BOBAN N Ot Z79.899 OTHER AUDIT 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) DRUG THERAPY 06/26/2018 DEL BOBAN N Ot C61 MALIGNANT NEOPLASM OF PROSTATE 06/26/2018 DEL BOBAN N Ot C79.51 SECONDARY MALIGNANT NEOPLASM OF BONE 06/26/2018 DEL, BOBAN N Ot Z79.899 OTHER RETIREMENT (CURRENT) DRUG THERAPY 06/27/2018 DEL BOBAN N Ot C61 MALIGNANT NEOPLASM OF PROSTATE 06/27/2018 DEL BOBAN N Ot C79.51 SECONDARY MALIGNANT NEOPLASM OF BONE 06/27/2018 DEL BOBAN N Ot Z79.899 OTHER RETIREMENT (CURRENT) DRUG THERAPY 07/02/2018 DEL BOBAN N Ot C61 MALIGNANT NEOPLASM OF PROSTATE 07/02/2018 DEL BOBAN N Ot C79.51 SECONDARY MALIGNANT NEOPLASM OF BONE 07/02/2018 DEL BOBAN N Ot Z79.899 OTHER RETIREMENT (CURRENT) DRUG THERAPY 07/02/2018 CHRISTIAN JOYCE, AKASH [...] FINDINGS ON RADIOLOGICAL OT 07/02/2018 CHERRI PENG AIRLINE FLIGHT ATTENDANT Ot 185 MALIGN NEOPL PROSTATE 07/02/2018 DEL [...] BONE CARTILAGE DIS NOS 07/02/2018 CHERRI PENG AIRLINE FLIGHT ATTENDANT Ot 185 MALIGN NEOPL PROSTATE 07/02/2018 CHERRI PENG AIRLINE FLIGHT ATTENDANT 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 07/02/2018 CHRISTIAN JOYCE, AKASH Galeano Ot 787.20 DYSPHAGIA, UNSPECIFIED 07/02/2018 AKASH GONZALES MD Ot V72.84 EXAM PRE-OPERATIVE NOS 07/02/2018 CHERRI PENG AIRLINE FLIGHT ATTENDANT Ot C61 MALIGNANT NEOPLASM OF PROSTATE 07/02/2018 CHERRI PENG S AIRLINE FLIGHT ATTENDANT Ot C79.51 SECONDARY MALIGNANT NEOPLASM OF BONE 07/02/2018 CHERRI PENG AIRLINE FLIGHT ATTENDANT Ot 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, UNSPECIFIED 07/02/2018 CHERRI PENG S AIRLINE FLIGHT ATTENDANT Ot R23.2 FLUSHING 07/02/2018 CHERRI PENG S AIRLINE FLIGHT ATTENDANT Ot Z79.899 OTHER RETIREMENT (CURRENT) DRUG THERAPY 07/02/2018 JESSICA MATHIS N Ot C61 MALIGNANT NEOPLASM OF PROSTATE 07/02/2018 JESSICA MATHIS N 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 07/02/2018 JESSICA MATHIS N Ot C79.51 SECONDARY MALIGNANT NEOPLASM OF BONE 07/02/2018 CHERRI PENG S AIRLINE FLIGHT ATTENDANT Ot C61 MALIGNANT NEOPLASM OF PROSTATE 07/02/2018 CHERRI PENG S AIRLINE FLIGHT ATTENDANT Ot C79.51 SECONDARY MALIGNANT NEOPLASM OF BONE 07/02/2018 CHERRI PENG S AIRLINE FLIGHT ATTENDANT Ot Z79.899 OTHER RETIREMENT (CURRENT) DRUG THERAPY 07/02/2018 BALDO WHEELER DC [...] 07/13/2018 AMOL PIERSON MD Ot Z79.899 OTHER RETIREMENT (CURRENT) DRUG THERAPY 07/15/2018 AMOL PIERSON MD Ot C61 MALIGNANT NEOPLASM OF PROSTATE 07/15/2018 AMOL PIERSON MD Ot C79.51 SECONDARY MALIGNANT NEOPLASM OF BONE 07/15/2018 AMOL PIERSON MD Ot Z79.899 OTHER RETIREMENT (CURRENT) DRUG THERAPY 07/23/2018 BALDO WHEELER DC [...] FINDINGS ON RADIOLOGICAL OT 08/05/2018 CHERRI PENG AIRLINE FLIGHT ATTENDANT Ot 185 MALIGN NEOPL PROSTATE 08/05/2018 BOBBI [...] CARTILAGE DIS NOS 08/05/2018 PENG, HILAH S AIRLINE FLIGHT ATTENDANT Ot 185 MALIGN NEOPL PROSTATE 08/05/2018 GINETTE CHERRI S AIRLINE FLIGHT ATTENDANT 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 08/05/2018 CHRISTIAN JOYCE, AKASH Galeano Ot 787.20 DYSPHAGIA, UNSPECIFIED 08/05/2018 CHRISTIAN JOYCE, AKASH Galeano Ot V72.84 EXAM PRE-OPERATIVE NOS 08/05/2018 CHERRI PENG S AIRLINE FLIGHT ATTENDANT Ot C61 MALIGNANT NEOPLASM OF PROSTATE 08/05/2018 CHERRI PENG S AIRLINE FLIGHT ATTENDANT Ot C79.51 SECONDARY MALIGNANT NEOPLASM OF BONE 08/05/2018 VITOR PENGNEYMAR S AIRLINE FLIGHT ATTENDANT Ot 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, UNSPECIFIED 08/05/2018 VITOR PENGNEYMAR S AIRLINE FLIGHT ATTENDANT Ot R23.2 FLUSHING 08/05/2018 VITOR PENGNEYMAR S AIRLINE FLIGHT ATTENDANT Ot Z79.899 OTHER AUDIT 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) DRUG THERAPY 08/05/2018 JESSICA MATHIS N Ot C61 MALIGNANT NEOPLASM OF PROSTATE 08/05/2018 DELJESSICA N 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 Type Provider Facility Loc./Unit Complaint [id number] 09/20/2014 00:00:00 09/20/2014 23:59:59 CLS Outpatient DONAVAN ALANIZ DDS [id number] 10/16/2018 14:41:00 10/16/2018 23:59:59 CLS Outpatient DEL JESSICA Paulino [facility] ONC [id number] 08/21/2018 13:53:00 08/21/2018 23:59:59 CLS Outpatient AKASH GONZALES MD [facility] LAB HEMATURIA [id number] 08/06/2018 12:16:00 08/06/2018 23:59:59 CLS Outpatient AKASH GONZALES MD [facility] RAD DIZZINESS,NAUSEA, PROSTATE CA W/ LUNG METASIS [id number] 07/03/2018 13:38:00 07/13/2018 00:01:00 DIS Outpatient AMOL PIERSON MD [facility] ONC [id number] 07/08/2018 12:04:00 07/08/2018 23:59:59 CLS Outpatient AMOL PIERSON MD [facility] CARD C61 PROSTATE CA [id number] 06/26/2018 10:59:00 07/02/2018 15:58:00 DIS Outpatient JESSICA MATHIS N [facility] ONC [id number] 06/30/2018 10:09:00 06/30/2018 23:59:59 CLS Outpatient LIAM SANTANA, BALDO Sigala [facility] RAD M54.2 [id number] 03/20/2018 13:06:00 06/11/2018 00:01:00 DIS Outpatient JESSICA MATHIS N [facility] ONC [id number] 12/26/2017 13:08:00 02/19/2018 00:01:00 DIS Outpatient DELJESSICA GALARZA [facility] ONC [id number] 08/08/2017 10:37:00 10/30/2017 00:01:00 DIS Outpatient DELJESSICA GALARZA [facility] ONC [id number] 04/18/2017 13:09:00 07/10/2017 00:01:00 DIS Outpatient DEL, JESSICA Paulino [facility] ONC [id number] 04/04/2017 13:24:00 04/04/2017 15:24:00 DIS Emergency BJ JOYCE, HALIE Jensen [facility] ER WILY TESSALLS [id number] 12/20/2016 13:02:00 03/13/2017 00:01:00 DIS Outpatient JESSICA MATHIS [facility] ONC [id number] 08/30/2016 09:37:00 11/21/2016 00:01:00 DIS Outpatient DEL, JESSICA Paulino [facility] ONC [id number] 05/11/2016 10:03:00 07/23/2016 14:53:00 DIS Outpatient JESSICA MATHIS [facility] ONC [id number] 05/11/2016 10:00:00 05/11/2016 23:59:59 CLS Outpatient CHERRI PENG [facility] ONC [id number] 03/23/2016 07:06:00 03/23/2016 09:05:00 DIS Outpatient AKASH GONZALES MD [facility] FOLLOW UP PROSTATE CANCER [id number] 03/22/2016 06:09:00 03/22/2016 08:56:00 DIS Outpatient AKASH GONZALES MD [facility] PREOP FOLLOW UP PROSTATE CANCER [id number] 02/16/2016 09:50:00 02/22/2016 00:01:00 DIS Outpatient JESSICA MATHIS [facility] ONC [id number] 02/10/2016 10:24:00 02/10/2016 23:59:59 CLS Outpatient JESSICA MATHIS [facility] CARD PROSTATE CA [id number] 11/17/2015 10:57:00 11/23/2015 00:01:00 DIS Outpatient JESSICA MATHIS [facility] ONC [id number] 09/01/2015 13:06:00 09/01/2015 23:59:59 CLS Outpatient CHERRI PENG [facility] ONC [id number] 06/09/2015 13:10:00 07/13/2015 00:01:00 DIS Outpatient JESSICA MATHIS [facility] ONC [id number] 05/31/2015 08:36:00 05/31/2015 11:45:00 DIS [id number] 05/27/2015 05:44:00 05/27/2015 23:59:59 CLS Outpatient AKASH GONZALES MD [facility] PREOP DYSPHAGIA [id number] 03/17/2015 10:04:00 03/23/2015 00:01:00 DIS Outpatient JESSICA MATHIS [facility] ONC [id number] 03/17/2015 10:10:00 03/17/2015 23:59:59 CLS Outpatient CHERRI PENG [facility] ONC [id number] 03/10/2015 08:07:00 03/10/2015 23:59:59 CLS Outpatient JESSICA MATHIS [facility] CARD 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 [id number] 03/10/2015 08:03:00 03/10/2015 23:59:59 CLS Outpatient JESSICA MATHIS [facility] RAD OSTEOPOROSIS BY MEDICATIONS [id number] 09/30/2014 13:56:00 11/21/2014 00:01:00 DIS Outpatient JESSICA MATHIS [facility] ONC [id number] 11/11/2014 10:21:00 11/11/2014 12:28:00 DIS Emergency HALIE LORENZO MD [facility] ER LEFT LEG INJURY [id number] 09/30/2014 02:45:00 09/30/2014 23:59:59 CLS Outpatient CHERRI PENG [facility] ONC [id number] 08/30/2014 10:42:00 08/30/2014 23:59:59 CLS Outpatient JESSICA MATHIS [facility] CARD COLON CA [id number] 08/16/2014 12:53:00 08/16/2014 17:03:00 DIS Emergency AGNES CALHOUN MD [facility] ER URINARY TROUBLE [id number] 08/10/2014 07:47:00 08/10/2014 23:59:59 CLS Outpatient AKASH GONZALES MD [facility] SDC RECTAL MASS [id number] 08/06/2014 07:08:00 08/06/2014 23:59:59 CLS Outpatient AKASH GONZALES MD [facility] PREOP RECTAL MASS [id number] 12/23/2012 06:53:00 Document Registration [id number] 12/19/2012 08:09:00 Document Registration [id number] 08/15/2012 10:54:00 Document Registration [id number] 06/13/2011 09:33:00 Document Registration
--- NOTE | 2018-10-21 06:30 | ED General ---
General Chief Complaint: Trauma-Non Activation Stated Complaint: FELL, HIT HEAD, LEGS NOT WORKING Nursing Triage Note: PT STATES HE WAS IN HIS RESTROOM THIS AM AROUND 0315, STATES HIS LEGS GAVE OUT FROM UNDERNEATH HIM AND HE FELL, STRIKING THE POSTERIOR PORTION OF HIS HEAD ON THE BATHTUB. DENIES LOOSING CONSCIOUSNESS. PT VERBALIZED A HX OF DIZZYNESS AND WEAKNESS OVER THE LAST TWO YEARS. Nursing Sepsis Screen: No Definite Risk Source of Information: Patient, EMS, Family History of Present Illness Date Seen by Provider: Oct 21, 2018 Time Seen by Provider: 03:29 Initial Comments PT ARRIVES VIA EMS FROM HOME--NO C-COLLAR, NO IMMOBILIZATION, NO IV PT STATES SHE GOT UP TO GO TO THE BATHROOM AND HE WAS VERY DIZZY, AND WAS ASSISTING HIM, HIS LEGS GOT WEAK AND GAVE OUT--STATES HE HIT HIS LEFT SIDE OF HEAD/BEHIND HIS LEFT EAR ON THE EDGE OF THE TUB STATES HE DID NOT LOSE CONSCIOUSNESS DENIES NECK PAIN OR HEAD PAIN DENIES PAIN ANYWHERE STATES HE WAS UNABLE TO GET UP--STATES HIS LEGS WOULD NOT WORK--STATES HE COULD MOVE THEM, BUT COULD NOT STAND ON THEM C/O SEVERE DIZZINESS STATES HE HAS HAD DIZZINESS FOR A COUPLE OF YEARS--COMES AND GOES, BUT IS GRADUALLY GETTING WORSE AND MORE OFTEN THAN NOT HE IS DIZZY. STATES THE DIZZINESS HAS NEVER BEEN THIS BAD--STATES IT IS SEVERE WITH SITTING UPRIGHT OR TRYING TO STAND --STANDING IS EVEN WORSE. 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 MATHIS YESTERDAY AND HAD HIS REGULAR INJECTION. PCP: DR. GONZALES ONCOLOGY: DR. MATHIS Allergies and Home Medications Allergies Coded Allergies: No Known Drug Allergies (Unverified , 12/23/12) Home Medications Cholecalciferol (Vitamin D3) 2,000 Unit Tablet, 2,000 UNIT PO DAILY, (Reported) Pantoprazole Sodium 40 Mg Tablet.dr, 40 MG PO DAILY, (Reported) Venlafaxine HCl 37.5 Mg Tab, 37.5 MG PO DAILY, (Reported) Patient Home Medication List Home Medication List Reviewed: Yes Review of Systems Review of Systems Constitutional: see HPI; No chills, No diaphoresis; dizziness; No fever, No malaise, No weakness EENTM: no symptoms reported Respiratory: no symptoms reported; No dyspnea on exertion, No short of breath Cardiovascular: no symptoms reported; No chest pain, No edema, No palpitations , No syncope Gastrointestinal: see HPI; No abdominal pain, No constipation, No diarrhea; nausea; No vomiting Genitourinary: see HPI, other (CHRONIC DIFFICULTY URINATING) Musculoskeletal: no symptoms reported Skin: no symptoms reported Psychiatric/Neurological: See HPI; Denies Headache; Pre-Existing Deficit Hematologic/Lymphatic: No Symptoms Reported Immunological/Allergic: no symptoms reported Past Boturvm-Nqbzyd-Bqazec Hx Patient Social History Alcohol Use: Occasionally Uses Alcohol Beverage of Choice: Beer Recreational Drug Use: No Smoking Status: Never a Smoker 2nd Hand Smoke Exposure: No Recent Foreign Travel: No Contact w/Someone Who Travel: No Recent Infectious Disease Expo: No Immunizations Up To Date Date of Pneumonia Vaccine: May 30, 2012 Date of Influenza Vaccine: Aug 16, 2014 Seasonal Allergies Seasonal Allergies: No Past Medical History Surgeries: Yes (pyloric stenosis sx, ) Respiratory: No Cardiac: No Neurological: No Genitourinary: Yes (PROSTATE CANCER) Prostate Problems Gastrointestinal: No Musculoskeletal: No Endocrine: No HEENT: Yes (RIGHT PUPIL DEFORMITY) Cancer: Yes (PROSTATE CANCER DX 2003--[place] WITH RADIATION; RECURRENCE DX IN 2013 WITH METS TO RECTAL /COLON AND LOCAL LYMPH NODE--[place] WITH HORMONAL THERAPY. ) Prostate Did You Recieve Any Treatments: Yes What Type of Treatment Did You: Radiation Psychosocial: No Integumentary: No Blood Disorders: No Adverse Reaction/Blood Tranf: No Family Medical History Urinary tract infection 19 FATHER Physical Exam Vital Signs Vital Signs - First Documented 10/21/18 03:22 Temp 97.4 Pulse 71 Resp 20 B/P (MAP) 181/122 (141) Pulse Ox 96 O2 Delivery Room Air Capillary Refill : Less Than 3 Seconds Height, Weight, BMI Height: 5'7.00" Weight: 160lbs. 0oz. 72.978298yu; 25.4 BMI Method:Stated General Appearance: No Apparent Distress, WD/WN, Other (SMILING, TALKATIVE) HEENT: TMs Normal, Normal ENT Inspection, Pharynx Normal, Other (MILD TENDERNESS AND ERYTHEMA TO LEFT EAR AND POST AURICULAR/MASTOID AREA. 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 BRIEF NYSTAGMUS ON POSITION CHANGES. ) Skin: Normal Color, Warm/Dry; No Rash Progress/Results/Core Measures Suspected Sepsis Recent Fever Within 48 Hours: No Infection Criteria Present: None New/Unexplained Altered Menta: No Sepsis Screen: No Definite Risk SIRS Temperature:97.4 Pulse: 71 Respiratory Rate: 20 Laboratory Tests 10/21/18 03:52: White Blood Count 5.2 Blood Pressure 181 /122 Mean: 141 Laboratory Tests 10/21/18 03:52: Creatinine 0.88, INR Comment 1.0, Platelet Count 311, Total Bilirubin 0.6 Results/Orders Lab Results Laboratory Tests Test 10/21/18 03:52 10/21/18 04:30 Range/Units White Blood Count 5.2 4.3-11.0 10^3/uL Red Blood Count 4.07 L 4.35-5.85 10^6/uL Hemoglobin 12.3 L 13.3-17.7 G/DL Hematocrit 36 L 40-54 % Mean Corpuscular Volume 89 80-99 FL Mean Corpuscular Hemoglobin 30 25-34 PG Mean Corpuscular Hemoglobin Concent 34 32-36 G/DL Red Cell Distribution Width 12.3 10.0-14.5 % Platelet Count 311 130-400 10^3/uL Mean Platelet Volume 8.2 7.4-10.4 FL Neutrophils (%) (Auto) 55 42-75 % Lymphocytes (%) (Auto) 22 12-44 % Monocytes (%) (Auto) 12 0-12 % Eosinophils (%) (Auto) 10 0-10 % Basophils (%) (Auto) 1 0-10 % Neutrophils # (Auto) 2.9 1.8-7.8 X 10^3 Lymphocytes # (Auto) 1.2 1.0-4.0 X 10^3 Monocytes # (Auto) 0.6 0.0-1.0 X 10^3 Eosinophils # (Auto) 0.5 H 0.0-0.3 10^3/uL Basophils # (Auto) 0.1 0.0-0.1 10^3/uL Prothrombin Time 12.7 12.2-14.7 SEC INR Comment 1.0 0.8-1.4 Activated Partial Thromboplast Time 33 24-35 SEC Sodium Level 145 135-145 MMOL/L Potassium Level 3.7 3.6-5.0 MMOL/L Chloride Level 109 H 98-107 MMOL/L Carbon Dioxide Level 25 21-32 MMOL/L Anion Gap 11 5-14 MMOL/L Blood Urea Nitrogen 14 7-18 MG/DL Creatinine 0.88 0.60-1.30 MG/DL Estimat Glomerular Filtration Rate > 60 BUN/Creatinine Ratio 16 Glucose Level 96 70-105 MG/DL Calcium Level 9.6 8.5-10.1 MG/DL Corrected Calcium 9.6 8.5-10.1 MG/DL Magnesium Level 2.1 1.8-2.4 MG/DL Total Bilirubin 0.6 0.1-1.0 MG/DL Aspartate Amino Transf (AST/SGOT) 19 5-34 U/L Alanine Aminotransferase (ALT/SGPT) 9 0-55 U/L Alkaline Phosphatase 106 40-136 U/L Total Creatine Kinase 59 30-200 U/L Creatine Kinase MB 1.4 <6.6 NG/ML Myoglobin 64.0 10.0-92.0 NG/ML Troponin I < 0.028 <0.028 NG/ML Total Protein 6.7 6.4-8.2 GM/DL Albumin 4.0 3.2-4.5 GM/DL Urine Color YELLOW Urine Clarity CLEAR Urine pH 8 5-9 Urine Specific [place] 1.015 L 1.016-1.022 Urine Protein NEGATIVE NEGATIVE Urine Glucose (UA) NEGATIVE NEGATIVE Urine Ketones NEGATIVE NEGATIVE Urine Nitrite NEGATIVE NEGATIVE Urine Bilirubin NEGATIVE NEGATIVE Urine Urobilinogen NORMAL NORMAL MG/DL Urine Leukocyte Esterase NEGATIVE NEGATIVE Urine RBC (Auto) 2+ H NEGATIVE Urine RBC 5-10 H /HPF Urine WBC NONE /HPF Urine Squamous Epithelial Cells RARE /HPF Urine Crystals NONE /LPF Urine Bacteria FEW H /HPF Urine Casts NONE /LPF Urine Mucus NEGATIVE /LPF Urine Culture Indicated NO My Orders Orders - NUVIA BECK DO Saline Lock/Iv-Start (10/21/18 03:29) Ekg Tracing (10/21/18 03:29) O2 (10/21/18 03:29) Monitor-Rhythm Ecg Trace Only (10/21/18 03:29) Ct Head Wo-R/O Stroke (10/21/18 03:29) Ct Cervical Spine Wo (10/21/18 03:29) Cbc With Automated Diff (10/21/18 03:29) Comprehensive Metabolic Panel (10/21/18 03:29) Creatine Kinase (10/21/18 03:29) Creatine Kinase Mb (10/21/18 03:29) Magnesium (10/21/18 03:29) Protime With Inr (10/21/18 03:29) Partial Thromboplastin Time (10/21/18 03:29) Troponin I (10/21/18 03:29) Ua Culture If Indicated (10/21/18 03:29) Myoglobin Serum (10/21/18 03:29) Chest 1 View, Ap/Pa Only (10/21/18 03:29) Pelvis (10/21/18 03:29) Scopolamine Patch (Transderm-Scop Patch) (10/21/18 04:00) Ondansetron Oral Dissolve Tab (Zofran (10/21/18 04:00) Ondansetron Injection (Zofran Injectio (10/21/18 04:00) Meclizine Tablet (Antivert Tablet) (10/21/18 05:15) Orthostatic Vital Signs (Adult (10/21/18 05:05) Diazepam Tablet (Valium Tablet) (10/21/18 05:45) Medications Given in ED Current Medications Medications Dose Ordered Sig/Vira Route Start Time Stop Time Status Last Admin Dose Admin Diazepam 2.5 mg ONCE ONCE PO 10/21/18 05:45 10/21/18 05:46 DC 10/21/18 05:58 2.5 MG Meclizine HCl 50 mg ONCE ONCE PO 10/21/18 05:15 10/21/18 05:16 DC 10/21/18 05:56 50 MG Ondansetron HCl 4 mg ONCE ONCE IVP 10/21/18 04:00 10/21/18 04:01 DC 10/21/18 04:33 4 MG Ondansetron HCl 4 mg ONCE ONCE PO 10/21/18 04:00 10/21/18 04:01 DC 10/21/18 04:00 4 MG Scopolamine 1.5 mg ONCE ONCE TD 10/21/18 04:00 10/21/18 04:01 DC 10/21/18 04:32 1.5 MG Vital Signs/I&O 10/21/18 10/21/18 10/21/18 03:22 04:24 07:16 Temp 97.4 96.9 Pulse 71 71 Resp 20 20 B/P (MAP) 181/122 (141) 152/76 (101) Pulse Ox 96 98 94 O2 Delivery Room Air Room Air Room Air Capillary Refill : Less Than 3 Seconds Blood Pressure Mean: 141 Progress Note : Progress Note PT PLACED IN CERVICAL COLLAR ON ARRIVAL AND LAID FLAT CERVICAL COLLAR REMOVED ON RECEIVING CT SCAN REPORT FROM RADIOLOGIST WITH NO ACUTE PROCESS PT IS NOT DIZZY WHEN LAYING FLAT AND STILL PT UNABLE TO SIT OR STAND OR CHANGE POSITIONS WITHOUT MUCH ASSIST, DUE TO SEVERE DIZZINESS. ECG Initial ECG Impression Date: Oct 21, 2018 Initial ECG Impression Time: 04:35 Initial ECG Rate: 69 Initial ECG Rhythm: Normal Sinus Diagnostic Imaging Comments CT CERVICAL SPINE--NO ACUTE PROCESS, DEGENERATIVE CHANGES--PER [facility] VIA FAX @ 7615 CT HEAD--NO ACUTE PROCESS, CHRONIC CHANGES / SMALL VESSEL DISEASE--PER [facility] VIA FAX @ 6630 CXR--NO ACUTE PROCESS, PENDING RADIOLOGIST REVIEW PELVIS XRAY--NO ACUTE PROCESS, PENDING RADIOLOGIST REVIEW Reviewed: Reviewed by Sd Departure Communication (Admissions) [id number]--SPOKE WITH DR. LORENZO, ACCEPTS PT FOR ADMIT Impression Primary Impression: INTRACTABLE VERTIGO Additional Impression: HX OF METASTATIC PROSTATE CANCER Disposition: ADMITTED INPATIENT Condition: Stable/Unchanged Admissions Decision to Admit Reason: Admit from ER (General) Decision to Admit/Date: Oct 21, 2018 Time/Decision to Admit Time: 05:45 Departure-Patient Inst. Referrals: AKASH GONZALES MD (PCP/Family) Primary Care Physician NUVIA BECK DO Oct 21, 2018 06:30
--- NOTE | 2018-10-21 06:39 | Diagnostic Imaging Report ---
INDICATION: Fall. COMPARISON: None. Single view of the pelvis demonstrates minimal degenerative joint disease. There is no fracture, dislocation or osseous lesion. Penile prosthetic device is present. IMPRESSION: No fracture dislocation. Dictated by: Dictated on workstation # [id number]
--- NOTE | 2018-10-21 07:00 | NUR ---
GINETTE PATINO admitted to room 402-1, with an admitting diagnosis of INTRACTABLE VERTIGO, S/P FALL WITH OUT LOSS OF CONSCIOUSNESS, on 10/21/18 from ER via BED, accompanied by STAFF AND FAMILY.GINETTE PATINO introduced to surroundings, call light, bed controls, phone, TV, temperature control, lights, meal times, smoking policy, visitor policy, side rail policy, bathrooms and showers. Patient Rights given to patient in the handbook. GINETTE PATINO verbalizes understanding that [facility] is not responsible for the loss or damage to any personal effects or valuables that are kept in the patients posession during their hospitalization. The Patient'S Care Plans were discussed with the PATIENT WELL Discharge Planning. GINETTE PATINO verbalizes understanding of Interdisciplinary Patient Education. Patient and/or family were informed about the Rapid Response Team and its purpose.
--- NOTE | 2018-10-21 07:04 | Diagnostic Imaging Report ---
INDICATION: Chest pain COMPARISON: None. FINDINGS: Single view of the chest demonstrates questionable nodule in the right upper lobe. This could be due to positioning from a lordotic projection. Otherwise, lungs are clear. The heart is slightly enlarged. There was no pneumothorax or effusion. Osseous structures are age-appropriate. IMPRESSION: Nodule versus costochondral cartilage right upper lobe. Recommend followup with 2 views. Report was called to Dr. Fontanez [facility] ER by richmond at 7:04 am. Dictated by: Dictated on workstation # [id number]
--- NOTE | 2018-10-21 07:27 | Diagnostic Imaging Report ---
PROCEDURE: CT head wo r/o stroke. TECHNIQUE: Multiple contiguous axial images were obtained through the brain without the use of intravenous contrast. INDICATION: Stroke. COMPARISON: 08/06/2018. FINDINGS: Stable age-related cerebral volume loss and chronic small vessel ischemic changes are present. There is no midline shift or mass effect. There is no hemorrhage or evidence of acute ischemia. No extra axial fluid collection is seen. The bony calvarium, visualized paranasal sinuses and mastoids are normal. IMPRESSION: No acute intracranial abnormalities. Agree with preliminary report. Dictated by: Dictated on workstation # [id number]
--- NOTE | 2018-10-21 07:29 | Diagnostic Imaging Report ---
PROCEDURE: CT cervical spine without contrast. TECHNIQUE: Multiple contiguous axial images were obtained through the cervical spine without the use of intravenous contrast. Sagittal and coronal reformations were then performed. INDICATION: Neck pain, trauma. COMPARISON: None. FINDINGS: Alignment is normal. There is no subluxation or fracture. Moderate diffuse degenerative changes are present. There is no paraspinous mass. Spiculated lung nodule seen in the right upper lobe. Recommend full CT chest for additional evaluation. IMPRESSION: 1. No traumatic malalignment or fracture. 2. 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 3. Suspicious right upper lobe lung nodule. Recommend full CT chest. Dictated by: Dictated on workstation # [id number]
[2018-10-21 08:00] VITALS: BP 151/75
--- NOTE | 2018-10-21 09:47 | History & Physical-Hospitalist ---
History of Present Illness HPI/Chief Complaint The patient's an 82-year-old white male who became dizzy last night when to go to the bathroom. He requires assistance from his but wall standing in the bathroom became lightheaded and fell striking the back of his head. He denied loss of consciousness and denied significant pain but states that when he is standing many times his legs won't do what he wants him to do. He is usually all right supine denying any sensations of weakness. He reports a 2 or 3 year history of numbness over the bottoms of his feet which have not changed. He's had a sensation of incomplete urinary evacuation somewhat worse over the past several weeks as well. He reports increasing dribbling without any loss of significant quantities of urine and no fecal incontinence. 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 He is not had significant known bony disease. He was originally diagnosed in 2003 and underwent radiation therapy. He had evidence for recurrence in 2013 and is been on hormonal therapy per Dr. Solis since that time. He has had one other lumbar MRI in 2008 that revealed significant degenerative disc disease and arthritic change but no evidence for cord compression. Date Seen 10/21/18 Time Seen by a Provider: 08:45 Attending Physician AKASH GONZALES M.D. PCP Akash Gonzales MD Referring Physician Date of Admission Oct 21, 2018 at 05:45 Home Medications & Allergies Home Medications Reviewed patient Home Medication Reconciliation performed by pharmacy medication reconciliations hydrology technician and/or nursing. Patients Allergies have been reviewed. Allergies Allergies Coded Allergies No Known Drug Allergies (Unverified12/23/12) Past Tbykrjd-Tyloby-Moihhj Hx Past Med/Social Hx: Reviewed and Corrections made Patient Social History Alcohol Use: Denies Use Alcohol Beverage of Choice: Beer Recreational Drug Use: No Smoking Status: Never a Smoker 2nd Hand Smoke Exposure: No Physical Abuse Screen: No Sexual Abuse: No Recent Foreign Travel: No Contact w/other who traveled: No Recent Infectious Disease Expo: No Immunizations Up To Date Date of Pneumonia Vaccine: May 30, 2012 Date of Influenza Vaccine: Aug 27, 2018 Seasonal Allergies Seasonal Allergies: No Past Medical History Genitourinary: Prostate Problems Cancer: Prostate Did You Recieve Any Treatments: Yes What Type of Treatment Did You: Radiation History of Blood Disorders: No Adverse Reaction to Blood Shah: No Family History Urinary tract infection 19 FATHER Review of Systems Constitutional: No chills, No diaphoresis; dizziness; No fever, No malaise; weakness (In the legs when standing); No weight gain, No weight loss, No other Respiratory: No cough; dyspnea on exertion (Mild and stable); No hemoptysis, No orthopnea, No phlegm, No short of breath, No stridor, No wheezing, No other Cardiovascular: see HPI; No chest pain, No edema, No Hx of Intervention, No palpitations, No syncope, No vascular heart diseas, No other Genitourinary: No no symptoms reported; see HPI; No decreased output, No discharge, No dysuria, No frequency, No hematuria; hesitancy; No incontinence; nocturia; No pain, No other Physical Exam Physical Exam Vital Signs Vital Signs - First Documented 10/21/18 03:22 Temp 97.4 Pulse 71 Resp 20 B/P (MAP) 181/122 (141) Pulse Ox 96 O2 Delivery Room Air Capillary Refill : Less Than 3 Seconds Height, Weight, BMI Height: 5'7.00" Weight: 164lbs. 0.0oz. 74.201868vh; 25.7 BMI Method:Stated General Appearance: No Apparent Distress, WD/WN HEENT: PERRL/EOMI Neck: Full Range of Motion, Normal Inspection, Non Tender, Supple, Carotid Bruit Respiratory: Chest Non Tender, Lungs Clear, Normal Breath Sounds, No Accessory Muscle Use, No Respiratory Distress Cardiovascular: Regular Rate, Rhythm, No Edema, No Gallop, No JVD, Normal Peripheral Pulses, Systolic Murmur (Soft 1-2/6 at the second intercostal space without evidence for pulsus parvus or tardus.) Gastrointestinal: Normal Bowel Sounds, No Organomegaly, No Pulsatile Mass, Non Tender, Soft Extremity: Normal Capillary Refill, Normal Inspection, Normal Range of Motion, Non Tender, No Calf Tenderness, No Pedal Edema Neurologic/Psychiatric: Alert, Oriented x3, Normal Mood/Affect, 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 Able to perform leg raise with heel to toe progression over the opposite tibia.) Skin: Warm/Dry, Pallor Lymphatic: No Adenopathy Results Results/Procedures Labs Laboratory Tests 10/21/18 03:52 Patient resulted labs reviewed. Assessment/Plan Admission Diagnosis A/P 1. Dizziness with falls difficult to describe whether it is truly vertigo. Orthostatic hypotension is a concern. Could not find documentation orthostatic blood pressure checks we'll perform in a satisfactory we'll progress with physical therapy evaluation for gait etc. 2. Known prostate cancer with direct extension to baseline bladder and rectum as well as likely metastatic right upper pulmonary nodule. Patient denies any bone pain we'll proceed with MRI of the lumbar spine to rule out any evidence for cord compression malignant or otherwise. 3. Symptoms concerning for urinary retention either from direct extension or also need to rule out cord compression. Patient had a post-catheter residual but I cannot find another results the chart will repeat if they are not available and continue to monitor. 4. In regards to DVT prophylaxis with frequent falls and hold anticoagulant therapy and just use SCDs for now. Admission Status: Observation Clinical Quality Measures DVT/VTE Risk/Contraindication: Risk Factor Score Per Nursin RFS Level Per Nursing on Admit: 4+=Very High AKASH GONZALES MD Oct 21, 2018 09:47
[2018-10-21 10:10] VITALS: BP 157/90
[2018-10-21] MEDS ORDERED: ENZA40CA PO (10:47)
[2018-10-21] MEDS ORDERED: GABA-488 PO (10:47)
[2018-10-21] MEDS ORDERED: ASPI-983 PO (10:47)
--- NOTE | 2018-10-21 10:48 | NUR ---
SPOKE WITH THE PATIENT ABOUT HIS MEDICATIONS. HE LISTED WHAT HE IS TAKING AND HOW HE TAKES THEM, I COMPARED WITH THE EXT MED HX. HE STATES HE IS NO LONGER TAKING THE CASODEX THAT WAS FILLED, HE STOPPED IT. HE TAKES VITAMIN D AND ASPIRIN 81MG OTC DAILY.
--- NOTE | 2018-10-21 11:55 | Physical Therapy Evaluation ---
PT Evaluation-General Medical Diagnosis Admission Date Oct 21, 2018 at 05:45 Medical Diagnosis: intractable vertigo Onset Date: Oct 21, 2018 Therapy Diagnosis Therapy Diagnosis: generalized debility Height/Weight Height (Feet): 5 Height (Inches): 7.00 Weight (Pounds): 164 Weight (Ounces): 0.0 Precautions Precautions/Isolations: Fall Prevention Weight Bear Status Right Lower Extremity: Right Full Weight Bearing Left Lower Extremity: Left Full Weight Bearing Referral Physician: Thomas Reason for Referral: Evaluation/Treatment Medical History Additional Medical History prostate cancer Current History ED with dizziness at home with a fall hitting his head Reviewed History: Yes Social History Home: Single Level Current Living Status: Spouse Prior/Core FIM Prior Level of Function Therapy Code Descriptions/Definitions Functional [place] Measure: 0=Not Assessed/NA 4=Minimal Assistance 1=Total Assistance 5=Supervision or Setup 2=Maximal Assistance 6=Modified [place] 3=Moderate Assistance 7=Complete [place] Therapy Quality Codes: 6 Independent with activity with or without an assistive device 5 Patient requires set up or clean up by helper. Patient completes activity by themselves 4 Supervision or touching assist (CGA). [place] provide cues , steadying assist 3 The helper provides less than half the effort to complete the activity 2 The helper provides more than half the effort to complete the activity 1 Dependent. The helper does all the effort to complete an activity 7 Patient refused to complete or attempt activity 9 The patient did not perform the activity before the current illness or injury 88 Not attempted due to Medical conditions or safety concerns Functional Abilities and Goals: Independent: Patient completed the activities by him/herself, with or without an assistive device, with no assistance from a helper. Needed Some Help: Patient needed partial assistance from another person to complete activities. Dependent: A helper completed the activities for the patient. Unknown: Not Applicable: Bed Mobility: 7 Transfers (B,C,W/C) (FIM): 7 Gait: 7 Indoor Mobility (Ambulation): Independent Stairs: Independent PT Evaluation-Current Subjective Patient and spouse agree to PT. Continue to c/o dizziness. Pain Numeric Pain Scale: 0-No Pain Location: No Pain Reported Objective Patient Orientation: Normal For Age Problem Solving: Fair ROM/Strength ROM Lower Extremities bilateral LE WFL Strength Lower Extremities 4+/5 grossly bilaterally Integumentary/Posture Bowel Incontinence: No Bladder Incontinence: No Posture noted lean to left in sit and stand/otherwise erect Neuromuscular (Tone, Coordination, Reflexes) diminished coordination in stand and with ambulation with listing to left with 3 episodes of LOB with PT correct Sensory Vision: Functional Hearing: Functional Sensation Right Lower Extremit: Impaired Sensation Left Lower Extremity: Impaired Transfers Therapy Code Descriptions/Definitions Functional [place] Measure: 0=Not Assessed/NA 4=Minimal Assistance 1=Total Assistance 5=Supervision or Setup 2=Maximal Assistance 6=Modified [place] 3=Moderate Assistance 7=Complete [place] Transfers (B, C, W/C) (FIM): 4 Scootin Rollin Supine to/from Sit: 5 Sit to/from Stand: 4 CGA for safety secondary to LOB to left in sit and stand Gait Mode of Locomotion: Walk Anticipated Mode of Locomotion: Walk Gait (FIM): 2 Distance (FIM): 8=213-89 ft Distance: 125' Gait Level of Assist: 4 Gait Persons Needed: 1 Gait Assistive Device: FWW Comments/Gait Description 3 episode LOB to left with PT correct Balance Sitting Static: Fair Sitting Dynamic: Fair Standing Static: Fair Standing Dynamic: Poor Treatment orthostatic BP: supine 170/82 sit 162/87 stand 143/90 Assessment/Needs 82 y.o. active male, will benefit from skilled PT to address functional mobility secondary to balance deficits in sit and stand with recent fall at home due to dizziness. Patient displays good strength bilaterally, however, did display 3 episodes of LOB and listing to left in sit and stand. Physician notified of findings. Rehab Potential: Fair PT Shelter Goals Shelter Goals PT [place] Goals Time Frame: Nov 01, 2018 Transfers (B,C,W/C) (FIM): 6 Gait (FIM): 6 Gait distance (FIM): 3=150 ft Distance: 200' Gait Level of Assist: 6 Gait Assistive Device: None, FWW, Cane Single Point PT Plan Problem List Problem List: Safety, Balance, Gait Treatment/Plan Treatment Plan: Continue Plan of Care Treatment Plan: Education, Functional Activity Melba, Functional Strength, Gait , Safety, Therapeutic Exercise, Transfers Treatment Duration: Nov 01, 2018 Frequency: 6 times per week Estimated Hrs Per Day: .5 hour per day Patient and/or Family Agrees t: Yes Time/GCodes Time In: 1115 Time Out: 1140 Total Billed Treatment Time: 25 Total Billed Treatment 1 visit EVModC 15 min FA 10 min JYOTSNA BENNETT PT Oct 21, 2018 11:55
[2018-10-21 12:00] VITALS: BP 135/83
[2018-10-21] MEDS ORDERED: MECLIZINE 25 MG (ANTIVERT) TAB PO PRN (12:00)
[2018-10-21] MEDS ORDERED: DIAZEPAM 5 MG (VALIUM) TABLET PO PRN (12:00)
--- NOTE | 2018-10-21 13:31 | Diagnostic Imaging Report ---
EXAM: CT THORACIC/LUMBAR SPINE WO INDICATION: Lower extremity weakness. COMPARISON: CT chest, abdomen and pelvis 07/08/2018. FINDINGS: There are twelve rib-bearing thoracic and five lumbar type vertebral bodies. Grade 1 retrolisthesis of L4 on L5. There is otherwise normal alignment of the thoracolumbar spine. Vertebral body heights preserved. No fractures. Moderate diffuse degenerative endplate changes are more advanced at L5-S1. There are bridging anterior osteophytes at T4-L1. Disc space height loss and facet arthropathy result in moderate bilateral neural foraminal narrowing at L3-L4, advanced at L4-L5 and L5-S1. Disc bulging combines with ligamentous hypertrophy to result in at least moderate, possibly advanced, spinal canal narrowing at L2-L3 and L3-L4. Solid pulmonary nodule in the right upper lobe measures up to 1.8 cm, previously 1.4 cm. Moderate atherosclerotic calcifications including coronary and aortic. Partially visualized left renal cyst. Partially visualized penile prosthesis reservoir. IMPRESSION: 1. Spondylotic changes appear to result in at least moderate, possibly advanced, spinal canal narrowing at L2-L3 and L3-L4. This could be better evaluated with CT myelogram or MRI. 2. No acute CT findings in the thoracolumbar spine. 3. A solid pulmonary nodule in the right upper lobe now measures up to 1.8 cm, previously 1.4 cm. Dictated by: Dictated on workstation # [id number]
[2018-10-21 16:30] VITALS: BP 153/78
[2018-10-21] MEDS ORDERED: PATIENT MAY USE OWN MEDS, ALL MC SCH (18:30)
[2018-10-21 20:19] VITALS: BP 142/65
--- NOTE | 2018-10-21 22:30 | NUR ---
PT HAS TRIED TO URINATE MULTIPLE TIMES. PT ONLY ABLE TO URINATE 20CC AT A TIME. 2119- BLADDER SCAN SHOWED 700CC. 2199-STRAIGHT CATH PERFORMED WITH 600CC URINE. WILL CONTINUE TO MONITOR PT.
[2018-10-22] VITALS: BP 163/79
[2018-10-22 04:06] VITALS: BP 137/68
--- NOTE | 2018-10-22 04:16 | NUR ---
0330- bladder scan showed 574ml in bladder 0400- straight cath performed with 500ml urine out
[2018-10-22 06:04] LABS: BASOPHILS % (AUTO) 1 % (0-10); EOSINOPHILS # (AUTO) 0.4 10^3/uL (0.0-0.3); EOSINOPHILS % (AUTO) 7 % (0-10); HEMATOCRIT 35 % (40-54); HEMOGLOBIN 11.6 G/DL (13.3-17.7); LYMPHOCYTES # (AUTO) 1.3 X 10^3 (1.0-4.0); LYMPHOCYTES % (AUTO) 20 % (12-44); MEAN CORPUSCULAR HEMOGLOBIN 30 PG (25-34); MEAN CORPUSCULAR HGB CONC 33 G/DL (32-36); MEAN CORPUSCULAR VOLUME 90 FL (80-99); MEAN PLATELET VOLUME 9.2 FL (7.4-10.4); MONOCYTES # (AUTO) 0.7 X 10^3 (0.0-1.0); MONOCYTES % (AUTO) 11 % (0-12); NEUTROPHILS # (AUTO) 3.9 X 10^3 (1.8-7.8); NEUTROPHILS % (AUTO) 61 % (42-75); PLATELET COUNT 285 10^3/uL (130-400); RED CELL DISTRIBUTION WIDTH 12.2 % (10.0-14.5); WHITE BLOOD COUNT 6.4 10^3/uL (4.3-11.0)
[2018-10-22 06:37] LABS: ALANINE AMINOTRANSFERASE < 6 U/L (0-55); ALBUMIN 3.5 GM/DL (3.2-4.5); ALKALINE PHOSPHATASE 100 U/L (40-136); BILIRUBIN,TOTAL 0.9 MG/DL (0.1-1.0); BUN/CREATININE RATIO 19; CARBON DIOXIDE 25 MMOL/L (21-32); CHLORIDE 109 MMOL/L (98-107); CREATININE SERUM 0.91 MG/DL (0.60-1.30); GFR ESTIMATED > 60; GLUCOSE 88 MG/DL (70-105); POTASSIUM 3.8 MMOL/L (3.6-5.0); SODIUM 142 MMOL/L (135-145)
[2018-10-22 08:00] VITALS: BP 117/69
--- NOTE | 2018-10-22 10:08 | Diagnostic Imaging Report ---
PROCEDURE: MR imaging of the brain without contrast. TECHNIQUE: Multiplanar, multisequence MR imaging of the brain was performed without contrast. INDICATION: Left-sided weakness. Loss of balance. COMPARISON: CT head without contrast 10/21/2018. FINDINGS: Advanced generalized cerebral and cerebellar parenchymal volume loss. Moderate to advanced confluent T2 hyperintensities in the supratentorial and pontine white matter. Postoperative changes in the globes. No restricted water diffusion or hemosiderin deposition. Normal morphology including the major midline structures, sella, posterior fossa and cerebellar pontine angle. No hydrocephalus or extra-axial fluid collections. Normal intracranial flow voids. The paranasal sinuses are clear. Right mastoid effusion. Normal bone marrow signal. IMPRESSION: 1. No acute intracranial MRI findings. 2. 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 3. Nonspecific right mastoid effusion. Dictated by: Dictated on workstation # [id number]
--- NOTE | 2018-10-22 10:42 | Diagnostic Imaging Report ---
PROCEDURE: MRI lumbar spine. TECHNIQUE: Multiplanar, multisequence MRI of the lumbar spine was performed without contrast. INDICATION: Loss of balance and left-sided weakness. Comparison is made with prior MRI from 11/16/2008. Curvature of the lumbar spine is normal. There is minimal retrolisthesis of L4 on L5, similar to prior exam. Vertebral body heights are well-maintained. Marrow signal intensity is unremarkable. No geographic marrow lesion or acute compression fracture is seen apart from a hemangiolipoma within the L3 vertebral body. There is generalized degenerative disc disease with generalized disc desiccation noted. There is also disc space narrowing at L4-L5 and L5-S1 levels. This has progressed since the study dating back to 2008. The conus medullaris is in a normal location at the L1-L2 level. T12-L1: The central canal is widely patent. The neural foramina are patent. L1-L2: There is mild ligamentous thickening present. Central narrowing remains widely patent. There is broad-based disc/osteophyte complex flattening the ventral thecal sac. This does result in some narrowing of the lateral recesses bilaterally. In addition, there is mild narrowing of the neural foramina. L2-L3: Broad-based disc/osteophyte complex flattens the ventral thecal sac. This in combination with ligamentous thickening and facet changes does create a trefoil configuration to the thecal sac. There is bilateral lateral recess narrowing. Neural foramina appear to be patent. L3-L4: There is broad-based disc/osteophyte complex and ligamentous thickening creating significant trefoil stenosis to the central canal. There is significant bilateral lateral recess stenosis. Moderate bilateral neural foraminal stenosis is seen. L4-L5: Broad-based disc/osteophyte complex, ligamentous thickening and facet changes result in moderate trefoil stenosis to the canal. There is significant bilateral lateral recess stenosis. There is severe right and moderate left neural foraminal stenosis. L5-S1: Hypertrophic facet degenerative change is noted. There is ligamentous thickening as well as broad-based disc/osteophyte complex. This results in very mild central canal narrowing. There is significant bilateral lateral recess narrowing. There is also significant bilateral neural foraminal stenosis. Paraspinous tissues demonstrate a rounded T2 intense mass arising from the left kidney measuring 4.6 cm in size, most consistent with a large renal cyst. IMPRESSION: 1. Multilevel lumbar spondylosis with multilevel central canal, lateral recess and neural foraminal stenosis described level by level above. No acute compression fracture is detected. 2. Left renal cyst. Dictated by: Dictated on workstation # [id number]
[2018-10-22] MEDS ORDERED: ASPIRIN E.C. 81 MG (ECOTRIN) TAB PO ONE (10:49)
[2018-10-22] MEDS: ASPIRIN 81 MG CHEW (CHILDREN'S ASA) PO SCH (10:53)
--- NOTE | 2018-10-22 11:35 | NUR ---
NOTIFIED DR. GONZALES THAT PATIENT HAS HAD ISSUES WITH URINE RETENTION SINCE ADMISSION AND HAD HAD TO BE STRAIGHT CATHED MULTIPLE TIMES AND IS NOW PASSING SMALL CLOTS IN URINE WHEN PATIENT DOES VOID ON HIS OWN AND IT IS ONLY 20-25CC URINE AT A TIME. DR. GONZALES ORDERS THIS RN TO PUT IN HEALY CATH AT THIS TIME. WILL CARRY OUT ORDERS AND CONTINUE TO MONITOR.
[2018-10-22] MEDS ORDERED: LIDOCAINE UROJET 2% GEL 10 ML PKG ONE (11:48)
[2018-10-22 12:00] VITALS: BP 146/84
--- NOTE | 2018-10-22 14:27 | Physical Therapy Daily Note ---
PT Daily Note-Current Subjective Pt. describes his dizziness in past as some spinning that has brought him to his knees with disorientation and some nausea. Long discussion with this patient and his regarding his history of dizziness. pt. states this is not the first incident and he feels he is better right now "its not completely gone but IT WILL come back" Pts only c/o at this time is the discomfort from his santos which is new in last 2 hrs. Pt. apparently had 600-7-- residual. Pts. indicates to this V[employer] PRINTER that she is fearful of him coming home at this point and really hopes he will admit to the ARU for strengthening and mobility safety training. Pain Numeric Pain Scale: 3 Location: Soft Tissue Location Body Site: Genital (penis) Pain Description: Pressure, Burning Appearance leaned left slightly upon sitting EOB Mental Status Patient Orientation: Person, Place, Time, Situation Attachments: Santos Catheter Transfers Therapy Code Descriptions/Definitions Functional [place] Measure: 0=Not Assessed/NA 4=Minimal Assistance 1=Total Assistance 5=Supervision or Setup 2=Maximal Assistance 6=Modified [place] 3=Moderate Assistance 7=Complete [place] Therapy Quality Codes: 6 Independent with activity with or without an assistive device 5 Patient requires set up or clean up by helper. Patient completes activity by themselves 4 Supervision or touching assist (CGA). [place] provide cues , steadying assist 3 The helper provides less than half the effort to complete the activity 2 The helper provides more than half the effort to complete the activity 1 Dependent. The helper does all the effort to complete an activity 7 Patient refused to complete or attempt activity 9 The patient did not perform the activity before the current illness or injury 88 Not attempted due to Medical conditions or safety concerns sup to sit and sit to stand all CGA. in sitting pt. initially leaned slightly left , states he is not even aware of it and did correct with instruction. Weight Bearing Right Lower Extremity: Right Full Weight Bearing Left Lower Extremity: Left Full Weight Bearing Gait Training Distance (FIM): 8=992-78 ft (50,15,20) Gait Level of Assist: 4 Gait Persons Needed: 1 Gait Assistive Device: FWW standing and pre gait activities initially to trial safety ie. side steps, sways , marches in place, Pt. needed instruction to use FWW correctly , feet inside perimeter of device, and to broaden JOCE. a bit impulsive and needed cues to slow down Exercises Supine Ex: Bridging, Rolling, Heel Slides, Straight leg raise, Hip abd/add Supine Reps: 12 Seated Therapy Exercises: Ankle pumps, Sit to stand, Long arc quads Seated Reps: 12 Neuromuscular modified Miles maneuver bilat with no nystagmus or incident. Assessment Current Status: Good Progress no heavy listing this Rx. Brain and spinal MRI do not indicate CVA or any significant cord compression etc. mastoid effusion possible cause for dizziness? PT Oil Developer Goals Oil Developer Goals PT Oil Developer Goals Time Frame: Nov 01, 2018 Transfers (B,C,W/C) (FIM): 6 Gait (FIM): 6 Gait distance (FIM): 3=150 ft Distance: 200' Gait Level of Assist: 6 Gait Assistive Device: None, FWW, Cane Single Point PT Plan Treatment/Plan Treatment Plan: Continue Plan of Care Treatment Plan: Education, Functional Activity Melba, Functional Strength, Gait , Safety, Therapeutic Exercise, Transfers Treatment Duration: Nov 01, 2018 Frequency: 6 times per week Estimated Hrs Per Day: .5 hour per day Patient and/or Family Agrees t: Yes Safety Risks/Education Patient Education: Gait Training, Transfer Techniques, Correct Positioning, Instructions to Caregiver, Disease Process, Safety Issues Teaching Recipient: Patient Teaching Methods: Demonstration, Discussion Response to Teaching: Verbalize Understanding, Return Demonstration, Reinforcement Needed Time/GCodes Time In: 1330 Time Out: 1415 Total Billed Treatment Time: 45 Total Billed Treatment 1,FA25m,GT20m G Codes Necessary: HANK Araiaz [employer]INTER Oct 22, 2018 14:27
--- NOTE | 2018-10-22 15:51 | Occupational Therapy Eval ---
OT Evaluation-General/PLF Medical Diagnosis Admission Date Oct 21, 2018 at 08:00 Medical Diagnosis: intractable vertigo Onset Date: Oct 21, 2018 Therapy Diagnosis Therapy Diagnosis: Impaired self care skills Height/Weight Height (Feet): 5 Height (Inches): 7.00 Weight (Pounds): 164 Weight (Ounces): 0.0 Precautions Precautions/Isolations: Fall Prevention Safety Interventions: Bed Exit Alarm Referral Physician: Thomas Medical History Pertinent Medical History: Prostate CA Current History Pt had fall at home. Reviewed History: Yes Social History Home: Single Level Current Living Status: Spouse Entry Into Home: Stairs With Railing ADL-Prior Level of Function Therapy Code Descriptions/Definitions Functional [place] Measure: 0=Not Assessed/NA 4=Minimal Assistance 1=Total Assistance 5=Supervision or Setup 2=Maximal Assistance 6=Modified [place] 3=Moderate Assistance 7=Complete [place] Therapy Quality Codes: 6 Independent with activity with or without an assistive device 5 Patient requires set up or clean up by helper. Patient completes activity by themselves 4 Supervision or touching assist (CGA). [place] provide cues , steadying assist 3 The helper provides less than half the effort to complete the activity 2 The helper provides more than half the effort to complete the activity 1 Dependent. The helper does all the effort to complete an activity 7 Patient refused to complete or attempt activity 9 The patient did not perform the activity before the current illness or injury 88 Not attempted due to Medical conditions or safety concerns Functional Abilities and Goals: Independent: Patient completed the activities by him/herself, with or without an assistive device, with no assistance from a helper. Needed Some Help: Patient needed partial assistance from another person to complete activities. Dependent: A helper completed the activities for the patient. Unknown: Not Applicable: ADL PLOF Comments Pt reports being independent prior to admission. Pt does state that he's had intermittent dizziness for quite some time, but this episode has been worse than usual. Uses a cane for balance. Self Care: Independent DME/Equipment: Tub/Shower Drive Self: Yes OT Current Status Subjective Pt in bed, agrees to treatment. Pt states he has discomfort secondary to catheter, but no other pain. Mental Status/Objective Patient Orientation: Person, Place Current Glasses/Contacts: Yes (reading) Hand Dominance: Right Upper Extremity ROM Grossly WFL Upper Extremity Coordination Intact Upper Extremity Sensation Intact per pt report Upper Extremity Strength Grossly 4+/5 ADL-Treatment ADL-Current Pt supine to sit with CGA. Pt sits EOB with SBA for balance. Pt demonstrates ability to doff/don socks with SBA. Sit to stand with CGA. Pt demonstrates ability to transfer with CGA using FWW. Pt is somewhat impulsive with mobility and requires cues for safety and walker use. Pt reports very minor dizziness with activity. Pt returned to bed and completed sit to supine with SBA. Pt has multiple questions regarding Inpatient Rehab vs Outpatient therapy. states pt will be going to inpatient rehab tomorrow. Pt resting in bed with needs met, spouse and daughter present after session. Therapy Code Descriptions/Definitions Functional [place] Measure: 0=Not Assessed/NA 4=Minimal Assistance 1=Total Assistance 5=Supervision or Setup 2=Maximal Assistance 6=Modified [place] 3=Moderate Assistance 7=Complete [place] Therapy Quality Codes: 6 Independent with activity with or without an assistive device 5 Patient requires set up or clean up by helper. Patient completes activity by themselves 4 Supervision or touching assist (CGA). [place] provide cues , steadying assist 3 The helper provides less than half the effort to complete the activity 2 The helper provides more than half the effort to complete the activity 1 Dependent. The helper does all the effort to complete an activity 7 Patient refused to complete or attempt activity 9 The patient did not perform the activity before the current illness or injury 88 Not attempted due to Medical conditions or safety concerns Education OT Patient Education: Rehab process Teaching Recipient: Patient Teaching Methods: Discussion Response to Teaching: Verbalize Understanding OT Short Term Goals Short Term Goals 1=Demonstrate adherence to instructed precautions during ADL tasks. 2=Patient will verbalize/demonstrate understanding of assistive devices/ modifications for ADL. 3=Patient will improve strength/tolerance for activity to enable patient to perform ADL's. OT Correction Goals Coding Coordinator Goals Time Frame: Nov 05, 2018 Eating (FIM): 6 Grooming(FIM): 6 Bathing(FIM): 6 Upper Body Dressing(FIM): 6 Lower Body Dressing(FIM): 6 Toileting(FIM): 6 Toilet/Commode Transfer(FIM): 6 Shower Transfer(FIM): 6 Additional Goals: 1-Demonstrate ADL Tasks, 2-Verbalize Understanding, 3- ImproveStrength/Melba 1=Demonstrate adherence to instructed precautions during ADL tasks. 2=Patient will verbalize/demonstrate understanding of assistive devices/ modifications for ADL. 3=Patient will improve strength/tolerance for activity to enable patient to perform ADL's. OT Education/Plan Problem List/Assessment Assessment: Decreased Activ Tolerance, Decreased UE Strength, Dependent Transfers Pt to benefit from skilled OT intervention for ADL training, transfers, strengthening, and safety education to increase independence and safety for return home with spouse. Discharge Recommendations Plan/Recommendations: Continue POC Treatment Plan/Plan of Care Treatment,Training & Education: Yes Patient would benefit from OT for education, treatment and training to promote independence in ADL's, mobility, safety and/or upper extremity function for ADL' s. Plan of Care: ADL Retraining, Functional Mobility, UE Funct Exercise/Act Treatment Duration: Nov 05, 2018 Frequency: 5 times per week Estimated Hrs Per Day: .25 hour per day Rehab Potential: Fair Time/GCodes Start Time: 15:10 Stop Time: 15:40 Total Time Billed (hr/min): 30 Billed Treatment Time 1 visit, EVM(30minutes) ALEXANDRIA MEHTA OT Oct 22, 2018 15:51
[2018-10-22 16:00] VITALS: BP 157/74
[2018-10-22] MEDS ORDERED: SCOPOLAMINE 1.5 MG (TRANSDERM-SCOP) PATCH TOP SCH (17:00)
--- NOTE | 2018-10-22 17:30 | Progress Note-Hospitalist ---
Subjective HPI/CC On Admission Date Seen by Provider: Oct 22, 2018 Time Seen by Provider: 08:00 The patient's an 82-year-old white male who became dizzy last night when to go to the bathroom. He requires assistance from his but wall standing in the bathroom became lightheaded and fell striking the back of his head. He denied loss of consciousness and denied significant pain but states that when he is standing many times his legs won't do what he wants him to do. He is usually all right supine denying any sensations of weakness. He reports a 2 or 3 year history of numbness over the bottoms of his feet which have not changed. He's had a sensation of incomplete urinary evacuation somewhat worse over the past several weeks as well. He reports increasing dribbling without any loss of significant quantities of urine and no fecal incontinence. 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 He is not had significant known bony disease. He was originally diagnosed in 2003 and underwent radiation therapy. He had evidence for recurrence in 2013 and is been on hormonal therapy per Dr. Solis since that time. He has had one other lumbar MRI in 2008 that revealed significant degenerative disc disease and arthritic change but no evidence for cord compression. Subjective/Events-last exam Patient denies dizziness and is had no presyncope or syncope. He's had no chest palpitations or discomfort. Upon my arrival the morning MRI it come to take him for MRI of the brain as well as lumbar spine. He denied any lower extremity pain but still notes sensation of incomplete evacuation he denies abdominal pain or pelvic pain. He's also had no reported chills or fever with reasonable appetite. He did a little better with physical therapy yesterday afternoon but still significant fall risk. He reports stable numbness in the bottoms of his feet only. Objective Exam Vital Signs Vital Signs Date Time Temp Pulse Resp B/P (MAP) Pulse Ox O2 Delivery O2 Flow Rate FiO2 10/23/18 07:56 99.1 83 18 153/76 (101) 85 Room Air Capillary Refill : Less Than 3 Seconds General Appearance: No Apparent Distress, WD/WN Respiratory: Chest Non Tender, Lungs Clear, Normal Breath Sounds, No Accessory Muscle Use, No Respiratory Distress Cardiovascular: Regular Rate, Rhythm, No Edema, No Gallop, No JVD, Normal Peripheral Pulses, Systolic Murmur (2/6 heard best at the right second intercostal space unchanged and baseline for this patient for many years.) Gastrointestinal: Normal Bowel Sounds, No Organomegaly, No Pulsatile Mass, Non Tender, Soft Extremity: Normal Capillary Refill, Normal Inspection, Normal Range of Motion, Non Tender, No Calf Tenderness, No Pedal Edema Results/Procedures Lab Patient resulted labs reviewed. Assessment/Plan Assessment and Plan Assess & Plan/Chief Complaint 1. Presyncope with falls aggravated by left lower extremity weakness. Patient does have risk factors for cord compression as well as CVAs considering her earlier CT findings of the lumbar spine. He is scheduled for MRI of the brain and lumbar spine this morning. 2. Urinary retention likely did truck extension from prostate cancer to the bladder neck have advised urology consultation which the patient is thinking about at this time was not ready to commit to that. Discussed my concerns about progression the complete urinary retention requiring chronic Baltazar catheterization. There are also concerns that this could be neurogenic in etiology due to impending cord compression waiting on MRI studies. 3. Prostate cancer known direct extension to the bladder rectum and likely this and pulmonary metastasis patient now on Xtandi continue. 4. I feel patient would be able good rehabilitation candidate and he is motivated. We'll put in consultation for rehabilitation evaluation for which the patient is agreeable if he qualifies. Clinical Quality Measures DVT/VTE Risk/Contraindication: Risk Factor Score Per Nursin RFS Level Per Nursing on Admit: 4+=Very High AKASH GONZALES MD Oct 22, 2018 17:30
--- NOTE | 2018-10-22 17:57 | NUR ---
IRF Evaluation: Order received to evaluate patient for the ARU. Chart reviewed and discussed with Dr. Friend - patient accepted to rehab program. Anticipate admission, 10/23/18. Thank you for this referral.
[2018-10-22 20:15] VITALS: BP 152/79
[2018-10-23 00:09] VITALS: BP 148/71
--- NOTE | 2018-10-23 01:30 | NUR ---
Pt continually attempting to climb out of bed, pulling on Baltazar catheter, et not complying with staff redirects. Pt insisting that this RN et PCCT are lying to him about current place. Additional staff attempting to orient pt to no avail. Pt spoke with over the phone et informed that he was currently at [facility], not home as he insisted. Pt states "well, I sit corrected" et stated that he would try to get some rest at this time. Bed alarm set, pt resting in bed with eyes closed at this time. Will continue to monitor.
--- NOTE | 2018-10-23 02:52 | NUR ---
Pt increasingly agitated, obstinate, refusing to comply with staff reorientation attempts et encouragement to stay in bed. Pt highly unbalanced when walking, requiring assistance x2 staff when ambulating r/t dizziness. Will continue to attempt to redirect et encourage rest.
--- NOTE | 2018-10-23 03:01 | NUR ---
Pt continuing to try to climb out of bed. Argumentative with staff, threatening to "call the law or 911" on staff attempting to redirect him, pulling on santos catheter at this time. Dr. Friend notified. Orders received for one-time dose 1 MG Haldol IM.
[2018-10-23] MEDS ORDERED: HALOPERIDOL 5 MG/ML (HALDOL) AMP ONE (03:09)
[2018-10-23] MEDS ORDERED: HALOPERIDOL 5 MG/ML (HALDOL) AMP IM ONE (03:15)
[2018-10-23 04:42] VITALS: BP 163/77
[2018-10-23 07:56] VITALS: BP 153/76
[2018-10-23] MEDS: ASPIRIN 81 MG CHEW (CHILDREN'S ASA) PO SCH (08:14)
--- NOTE | 2018-10-23 08:29 | Discharge Summary-Hospitalist ---
Diagnosis/Chief Complaint Date of Admission Oct 21, 2018 at 08:00 Date of Discharge Discharge Date: Oct 23, 2018 Admission Diagnosis A/P 1. Dizziness with falls difficult to describe whether it is truly vertigo. Orthostatic hypotension is a concern. Could not find documentation orthostatic blood pressure checks we'll perform in a satisfactory we'll progress with physical therapy evaluation for gait etc. 2. Known prostate cancer with direct extension to baseline bladder and rectum as well as likely metastatic right upper pulmonary nodule. Patient denies any bone pain we'll proceed with MRI of the lumbar spine to rule out any evidence for cord compression malignant or otherwise. 3. Symptoms concerning for urinary retention either from direct extension or also need to rule out cord compression. Patient had a post-catheter residual but I cannot find another results the chart will repeat if they are not available and continue to monitor. 4. In regards to DVT prophylaxis with frequent falls and hold anticoagulant therapy and just use SCDs for now. Discharge Diagnosis 1. Presyncope unknown etiology. 2. Acquired spinal stenosis with left lower extremity weakness. 3. Urinary retention secondary to prostate cancer. 4. 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 Discharge Summary Discharge Physical Exam Allergies: Coded Allergies: No Known Drug Allergies (Unverified , 12/23/12) Vitals & I&Os Vital Signs Date Time Temp Pulse Resp B/P (MAP) Pulse Ox O2 Delivery O2 Flow Rate FiO2 10/23/18 07:56 99.1 83 18 153/76 (101) 85 Room Air General Appearance: No Apparent Distress, WD/WN Respiratory: Chest Non Tender, Lungs Clear, Normal Breath Sounds, No Accessory Muscle Use, No Respiratory Distress Cardiovascular: Regular Rate, Rhythm, No Edema, No Gallop, No JVD, Normal Peripheral Pulses, Systolic Murmur (Stable 2/6 systolic ejection murmur) Hospital Course The patient's an 82-year-old white male who became dizzy last night when to go to the bathroom. He requires assistance from his but wall standing in the bathroom became lightheaded and fell striking the back of his head. He denied loss of consciousness and denied significant pain but states that when he is standing many times his legs won't do what he wants him to do. He is usually all right supine denying any sensations of weakness. He reports a 2 or 3 year history of numbness over the bottoms of his feet which have not changed. He's had a sensation of incomplete urinary evacuation somewhat worse over the past several weeks as well. He reports increasing dribbling without any loss of significant quantities of urine and no fecal incontinence. 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 He is not had significant known bony disease. He was originally diagnosed in 2003 and underwent radiation therapy. He had evidence for recurrence in 2013 and is been on hormonal therapy per Dr. Solis since that time. He has had one other lumbar MRI in 2008 that revealed significant degenerative disc disease and arthritic change but no evidence for cord compression. CT head the emergency room did not reveal any acute abnormalities. Chest x-ray were and incidentally on cervical CT right upper lobe pulmonary nodule suspicious for neoplasm was again noted slightly larger compared to last year at 1.8 cm in size. Patient was admitted on observation and physical therapy was consulted. Patient did not have evidence for orthostatic blood pressure drop but did have significant gait abnormality listing toward the left with left -sided weakness and would've fallen on several occasions despite the use of the walker and physical therapy not been at the patient's side. He denied any associated pain but did develop progressive urinary retention with several postvoid residuals greater than 400 mL. Evening of the second hospital stay he was unable to void with over 500 mL residual with evidence for some hematuria necessitating Baltazar catheter placement. Initially MRI was not available but we were ultimately able to obtain an MRI of the brain at which time no evidence for acute CVA was noted to explain left-sided weakness. With known metastatic prostate cancer tumor-related cord compression was a concern. MRI of the thoracic and lumbar spine did reveal findings compatible with acquired spinal stenosis most prevalent at the L2-3 level due to digit degenerative disc disease ligamentous hypertrophy and arthritic change without evidence for metastatic spinal column disease. Considering age with a diagnosis of metastatic prostate cancer he is felt to be a good candidate for physical therapy. If there is evidence for progression of weakness despite physical therapy especially the lower extremities will consult orthophoria states for spinal evaluation. For urinary retention likely need for cystoscopy and urology has been consulted after discussion with the patient. This can be done on acute rehabilitation for which the patient will be transferred later today. Labs (last 24 hrs) Patient resulted labs reviewed. Discussion & Recommendations Discharge Planning: >30 minutes discharge planning Discharge Home Medications: Active Scripts Active Reported Xtandi (Enzalutamide) 40 Mg Capsule 160 Mg PO DAILY TAKES 4 (40MG) CAPSULES Aspirin EC (Aspirin) 81 Mg Tablet.dr 81 Mg PO DAILY Gabapentin 300 Mg Capsule 300 Mg PO 1930 Vitamin D3 (Cholecalciferol (Vitamin D3)) 2,000 Unit Tablet 2,000 Unit PO DAILY Instructions to patient/family Please see electronic discharge instructions given to patient. Clinical Quality Measures DVT/VTE Risk/Contraindication: Risk Factor Score Per Nursin RFS Level Per Nursing on Admit: 4+=Very High Copy Copies To 1: JESSICA MATHIS MARK D MD Oct 23, 2018 08:29
--- NOTE | 2018-10-23 10:07 | NUR ---
Dr. Cabral notified of patient urology consult. Notified of Patient being moved to Inpatient rehab unit.
--- NOTE | 2018-10-23 10:08 | NUR ---
Report called to IRU RN. Patient transported ambulatory with walker and PT assistance.
[2018-10-23] MEDS ORDERED: ASPI-983 PO (13:06)
[2018-10-23] MEDS ORDERED: GABA-488 PO (13:06)
[2018-10-24] MEDS ORDERED: PATCH REMOVAL TP SCH (05:30)
[2018-10-24] MEDS ORDERED: SCOPOLAMINE 1.5 MG (TRANSDERM-SCOP) PATCH TOP SCH (06:00)
[2018-10-25] MEDS ORDERED: SCOPOLAMINE PATCH REMOVAL TP SCH (16:59)
[2018-10-28] MEDS ORDERED: BETH25TA PO (08:57)
[2018-10-28] MEDS ORDERED: PANT40TA3 PO (08:57)
[2018-10-28] MEDS ORDERED: ACHD5005 PO (08:57)
== END 2018-10-23 08:14 ==
LOC: EDUNIT# 03:21 → ER 03:25 → 4TH 05:45 → UNDOADMOB 05:45 → 4TH 08:00
PROVIDERS: ADMIT Internal Medicine; ATTEND Internal Medicine
DX: R55 Syncope and collapse (principal); M48.061 Spinal stenosis, lumbar region without neurogenic claudication; M62.81 Muscle weakness (generalized); R33.9 Retention of urine, unspecified; C61 Malignant neoplasm of prostate; C78.5 Secondary malignant neoplasm of large intestine and rectum; C79.11 Secondary malignant neoplasm of bladder; Z91.81 History of falling; Z92.3 Personal history of irradiation; Z79.899 Other long term (current) drug therapy
CPT/HCPCS: 36415; 51702; 70450; 70551; 71045; 72125; 72128; 72131; 72148; 72170; 80053; 81000; 82550; 82553; 83735; 83874; 84484; 85025; 85610; 85730; 93005; 93041; 96374; G0378

== ENCOUNTER 2018-10-23 09:45 | Inpatient (IN) | payer MEDICARE, OTHER ==
[~2018-10-23] VITALS: Ht 170.2 cm; Wt 74.5 kg
[~2018-10-23 09:45] MED LIST changes: +ASPI-983 PO; +ENZA40CA PO; +GABA-488 PO
[2018-10-23 10:05] VITALS: BP 163/83
--- NOTE | 2018-10-23 10:05 | NUR ---
Moy Cochran admitted to room 229-1, with an admitting diagnosis of general debility , on 10/23/18 from 4 floor medical [facility], accompanied by and staff. Moy introduced to surroundings, call light, bed controls, phone, TV, temperature control, lights, meal times, smoking policy, visitor policy, side rail policy, bathrooms and showers. Patient Rights given to patient in the handbook. Moy verbalizes understanding that [facility] is not responsible for the loss or damage to any personal effects or valuables that are kept in the patients possessions during their hospitalization. The following Patient Care Plans were discussed with the patient: Discharge Planning and impaired mobility. Moy verbalizes understanding of Interdisciplinary Patient Education. Patient and/or family were informed about the Rapid Response Team and its purpose. Patient received Patient Rights Booklet, which includes Privacy Act Statement and Data Collection Information Summary. Patient reported a code status of DNR, this was verified with . Dr. Friend notified of code status desire. No further issues noted at this time. Nursing staff will continue to monitor patient and needs.
--- OUTSIDE RECORDS SUMMARY | 2018-10-23 10:30 | XMS REPORT | Continuity of Care Document ---
Author Author Replaced By [facility] Address Unknown Phone Unavailable Allergies Active Description Code Type Severity Reaction Onset Reported/Identified Relationship to Patient Clinical Status Yes No Known Drug Allergies [id number] Drug Allergy Unknown N/A 12/23/2012 Medications There is no data. 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 08/16/2014 UNIQUE JOYCE, AGENS Galeano Ot 597.0 URETHRAL ABSCESS 08/16/2014 UNIQUE JOYCE, AGNES Galeano Ot 599.0 URIN TRACT INFECTION NOS 08/30/2014 [...] GALARZA N Ot 185 11/03/2014 CHERRI PENG ATTENDANT [employer]PERATED LAUNDRY Ot 185 11/08/2014 CHERRI PENG ATTENDANT [employer] OPER[employer] LAUNDRY Ot 185 11/11/2014 BJ JOYCE, HALIE Jensen [...] GALARZAAN N Ot 793.7 02/16/2015 CHERRI PENG ATTENDANT [employer] OPERATED LAUNDRY Ot 185 02/16/2015 DEL, BOBAN N Ot [...] N Ot 793.7 02/24/2015 CHERRI PENG S ATTENDANT COIN OPERATED LAUNDRY Ot 185 02/24/2015 DEL, BOBAN N Ot [...] N Ot 793.7 02/24/2015 CHERRI PENG S ATTENDANT CO[employer] OPERATED LAUNDRY Ot 185 02/24/2015 DEL, BOBAN N Ot [...] N Ot 793.7 03/02/2015 VITOR PENGAH S ATTENDANT COIN OPERATED LAUNDRY Ot 185 03/02/2015 DEL, BOBAN N Ot [...] 03/24/2015 DEL, BOBAN N Ot 185 03/24/2015 EDL, BOBAN N Ot 198.5 03/24/2015 DEL, BOBAN [...] N Ot 733.90 03/25/2015 PENG, HILAH S ATTENDANT [employer] OPERATED LAUNDRY Ot 185 03/25/2015 PENG, HILAH S ATTENDANT CO[employer] OPERATED LAUNDRY Ot 198.5 03/25/2015 DEL, BOBAN N Ot [...] N Ot 793.7 04/06/2015 PENG, VITORAH S ATTENDANT CO[employer] OPERATED LAUNDRY Ot 185 04/06/2015 DEL, BOBAN N Ot 185 04/06/2015 DEL, BOBAN N Ot 198.5 04/06/2015 DEL, BOBAN N Ot 781.91 04/06/2015 DEL, BOBAN N Ot 185 04/06/2015 DEL, BOBAN N Ot 198.5 04/06/2015 DEL, BOBAN N Ot 733.90 04/06/2015 PENG, VITORAH S ATTENDANT [employer]PERATED LAUNDRY Ot 185 04/06/2015 PENG, VITORAH S ATTENDANT COIN OPERATED LAUNDRY Ot 198.5 04/06/2015 DEL, BOBAN N Ot 185 04/06/2015 DEL, BOBAN N Ot V58.69 04/06/2015 PENG, HILAH S ATTENDANT [employer]PER[employer] LAUNDRY Ot 185 04/06/2015 PENG, HILAH S ATTENDANT CO[employer] OPERATED LAUNDRY Ot 198.5 04/26/2015 PENG, HILAH S ATTENDANT COIN OPERATED LAUNDRY Ot 185 04/26/2015 PENG, HILAH S ATTENDANT COIN OPERATED LAUNDRY Ot 198.5 05/10/2015 DEL, BOBAN N Ot 185 05/10/2015 DEL, BOBAN N Ot 198.5 05/10/2015 DEL, BOBAN N Ot 781.91 05/26/2015 Ot 788.41 05/26/2015 Ot 185 05/26/2015 Ot V72.84 05/26/2015 CHRISTIAN JOYCE, KAASH Galeano Ot V72.84 05/26/2015 CHRISTIAN JOYCE, AKASH Galeano Ot 154.1 05/26/2015 CHRISTIAN JOYCE, AKASH Galeano Ot 185 05/26/2015 CHRISTIAN JOYCE, AKASH Galeano Ot 562.10 05/26/2015 CHRISTIAN JOYCE, AKASH Galeano Ot V15.3 05/26/2015 DEL, BOBAN N Ot 185 05/26/2015 DEL, BOBAN N Ot 793.7 05/26/2015 CHERRI PENG ATTENDANT [employer] OPERATED LAUNDRY Ot 185 05/26/2015 DEL, BOBAN N Ot 185 05/26/2015 DEL, BOBAN N Ot 198.5 05/26/2015 DEL, BOBAN N Ot 781.91 05/26/2015 DEL, BOBAN N Ot 185 05/26/2015 DEL, BOBAN N Ot 198.5 05/26/2015 DEL, BOBAN N Ot 733.90 05/26/2015 CHERRI PENG ATTENDANT [employer] OPERATED LAUNDRY Ot 185 05/26/2015 CHERRI PENG ATTENDANT COIN OPERATED LAUNDRY Ot 198.5 05/26/2015 DEL, BOBAN N Ot 185 05/26/2015 DEL, BOBAN N Ot V58.69 05/30/2015 DEL, BOBAN N Ot 185 05/30/2015 DEL, BOBAN N Ot 198.5 05/30/2015 DEL, BOBAN N Ot 781.91 05/30/2015 CHRISTINA JOYCE, AKASH Galeano Ot 787.20 05/30/2015 CHRISTIAN [...] V58.69 OT MED,LT,CURRENT USE 09/21/2015 CHERRI PENG ATTENDANT [employer]PER[employer] LAUNDRY Ot C61 09/21/2015 CHERRI PENG ATTENDANT [employer] OPER[employer] LAUNDRY Ot C79.51 09/21/2015 CHERRI PENG ATTENDANT [employer] OPER[employer] LAUNDRY Ot E55.9 09/21/2015 CHERRI PENG ATTENDANT [employer] OPER[employer] LAUNDRY Ot R23.2 09/21/2015 CHERRI PENG S ATTENDANT [employer]PER[employer] LAUNDRY Ot Z79.899 10/11/2015 CHERRI PENG S ATTENDANT [employer] OPER[employer] LAUNDRY Ot C61 10/11/2015 CHERRI PENG S ATTENDANT [employer] OPERATED LAUNDRY Ot C79.51 10/11/2015 CHERRI PENG ATTENDANT COIN OPERATED LAUNDRY Ot E55.9 10/11/2015 CHERRI PENG S ATTENDANT COIN OPERATED LAUNDRY Ot R23.2 10/11/2015 CHERRI PENG S ATTENDANT COIN OPERATED LAUNDRY Ot Z79.899 10/25/2015 DEL, BOBAN N Ot [...] 11/23/2015 DEL, BOBAN N Ot 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 11/28/2015 DEL, BOBAN N Ot C61 11/28/2015 DEL, BOBAN N Ot C79.51 11/28/2015 DELBOBBI GALARZAAN N Ot Z79.899 01/03/2016 DLEBOBBI GALARZAAN N Ot C61 01/03/2016 DEL, BOBAN N Ot C79.51 01/03/2016 DELJESSICA GALARAZ N Ot Z79.899 01/18/2016 DELJESSICA GALARZA N [...] MALIGN NEOPL PROSTATE 02/10/2016 CHRISTIAN JOYCE, AKASH Glaeano Ot 562.10 DIVERTICULOSIS COLON (W/O MENT OF HEMORR 02/10/2016 AKASH GONZALES MD Ot V15.3 HX OF IRRADIATION 02/10/2016 DEL, BOBAN N Ot 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 02/10/2016 DEL, BOBAN N Ot 793.7 NOSP (ABN) FINDINGS ON RADIOLOGICAL OT 02/10/2016 CHERRI PENG S ATTENDANT [employer]PER[employer] LAUNDRY Ot 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 02/10/2016 DEL, [...] BONE CARTILAGE DIS NOS 02/10/2016 CHERRI PENG ATTENDANT [employer] OPERATED LAUNDRY Ot 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 02/10/2016 CHERRI PENG ATTENDANT [employer] OPERATED LAUNDRY 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 02/10/2016 CHRISTIAN JOYCE, AKASH Galeano Ot 787.20 DYSPHAGIA, UNSPECIFIED 02/10/2016 CHRISTIAN JOYCE, AKASH Galeano Ot V72.84 EXAM PRE-OPERATIVE NOS 02/10/2016 CHERRI PENG S ATTENDANT [employer] OPERATED LAUNDRY Ot C61 MALIGNANT NEOPLASM OF PROSTATE 02/10/2016 CHERRI PENG ATTENDANT [employer]IN OPERATED LAUNDRY Ot C79.51 SECONDARY MALIGNANT NEOPLASM OF BONE 02/10/2016 CHERRI PENG ATTENDANT [employer] OPERATED LAUNDRY Ot 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, UNSPECIFIED 02/10/2016 CHERRI PENG ATTENDANT [employer] OPERATED LAUNDRY Ot R23.2 FLUSHING 02/10/2016 PENGCHERRI Fernandez S ATTENDANT [employer] OPERATED LAUNDRY Ot Z79.899 OTHER SENIOR CARE (CURRENT) DRUG THERAPY 02/10/2016 DEL BOBAN N Ot C61 MALIGNANT NEOPLASM OF PROSTATE 02/10/2016 DEL, BOBAN N Ot C79.51 SECONDARY MALIGNANT NEOPLASM OF BONE 02/10/2016 DEL BOBAN N Ot Z79.899 OTHER SENIOR CARE (CURRENT) DRUG THERAPY 02/13/2016 DEL BOBAN N [...] 02/22/2016 DEL, BOBAN N Ot 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 03/01/2016 DEL, BOBAN [...] ON RADIOLOGICAL OT 03/05/2016 VITOR PENGAH S ATTENDANT [employer] OPERATED LAUNDRY Ot 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 03/05/2016 DEL [...] CARTILAGE DIS NOS 03/05/2016 CHERRI PENG S ATTENDANT CO[employer] OPERATED LAUNDRY Ot 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 03/05/2016 CHERRI PENG S ATTENDANT [employer] OPERATED LAUNDRY 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 03/05/2016 CHRISTIAN JOYCE, AKASH Galeano Ot 787.20 DYSPHAGIA, UNSPECIFIED 03/05/2016 AKASH GONZALES MD Ot V72.84 EXAM PRE-OPERATIVE NOS 03/05/2016 CHERRI PENG S ATTENDANT [employer] OPERATED LAUNDRY Ot C61 MALIGNANT NEOPLASM OF PROSTATE 03/05/2016 CHERRI PENG S ATTENDANT COIN OPERATED LAUNDRY Ot C79.51 SECONDARY MALIGNANT NEOPLASM OF BONE 03/05/2016 CHERRI PENG S ATTENDANT COIN OPERATED LAUNDRY Ot 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, UNSPECIFIED 03/05/2016 CHERRI PENG S ATTENDANT [employer] OPERATED LAUNDRY Ot R23.2 FLUSHING 03/05/2016 CHERRI PENG S ATTENDANT COIN OPERATED LAUNDRY Ot Z79.899 OTHER SENIOR CARE (CURRENT) DRUG THERAPY 03/05/2016 BOBBI MATHISAN N [...] 03/05/2016 JESSICA MATHIS N Ot 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 03/13/2016 Ot 788.41 [...] FINDINGS ON RADIOLOGICAL OT 03/13/2016 CHERRI PENG ATTENDANT [employer] OPERATED LAUNDRY Ot 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 03/13/2016 DEL [...] BONE CARTILAGE DIS NOS 03/13/2016 CHERRI PENG ATTENDANT COIN OPERATED LAUNDRY Ot 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 03/13/2016 CHERRI PENG ATTENDANT COIN OPERATED LAUNDRY 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 03/13/2016 CHRISTIAN JOYCE, AKASH Galeano Ot 787.20 DYSPHAGIA, UNSPECIFIED 03/13/2016 CHRISTIAN JOYCE, AKASH Galeano Ot V72.84 EXAM PRE-OPERATIVE NOS 03/13/2016 PENG, HILAH S ATTENDANT COIN OPERATED LAUNDRY Ot C61 MALIGNANT NEOPLASM OF PROSTATE 03/13/2016 CHERRI PENG ATTENDANT COIN OPERATED LAUNDRY Ot C79.51 SECONDARY MALIGNANT NEOPLASM OF BONE 03/13/2016 CHERRI PENG ATTENDANT COIN OPERATED LAUNDRY Ot 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, UNSPECIFIED 03/13/2016 CHERRI PENG ATTENDANT COIN OPERATED LAUNDRY Ot R23.2 FLUSHING 03/13/2016 CHERRI PENG ATTENDANT COIN OPERATED LAUNDRY Ot Z79.899 OTHER SENIOR CARE (CURRENT) DRUG THERAPY 03/13/2016 JESSICA MATHIS N Ot C61 MALIGNANT NEOPLASM OF PROSTATE 03/13/2016 JESSICA MATHIS N 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 03/13/2016 DEL JESSICA N Ot C79.51 SECONDARY MALIGNANT NEOPLASM OF BONE 03/13/2016 DELJESSICA N Ot C61 MALIGNANT NEOPLASM OF PROSTATE 03/13/2016 DEL JESSICA N Ot C79.51 SECONDARY MALIGNANT NEOPLASM OF BONE 03/13/2016 JESSICA MATHIS N Ot Z79.899 OTHER SENIOR CARE (CURRENT) DRUG THERAPY 03/21/2016 Ot 788.41 URINARY [...] FINDINGS ON RADIOLOGICAL OT 03/21/2016 CHERRI PENG ATTENDANT [employer]IN OPERATED LAUNDRY Ot 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 03/21/2016 DELJESSICA [...] BONE CARTILAGE DIS NOS 03/21/2016 PENGCHERRI S ATTENDANT COIN OPERATED LAUNDRY Ot 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 03/21/2016 PENGCHERRI S ATTENDANT COIN OPERATED LAUNDRY 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 03/21/2016 AKASH GONZALES MD Ot 787.20 DYSPHAGIA, UNSPECIFIED 03/21/2016 AKASH GONZALES MD Ot V72.84 EXAM PRE-OPERATIVE NOS 03/21/2016 PENGCHERRI S ATTENDANT [employer]IN OPERATED LAUNDRY Ot C61 MALIGNANT NEOPLASM OF PROSTATE 03/21/2016 PENGVITORAH S ATTENDANT COIN OPERATED LAUNDRY Ot C79.51 SECONDARY MALIGNANT NEOPLASM OF BONE 03/21/2016 CHERRI PENG S ATTENDANT CO[employer] OPERATED LAUNDRY Ot 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, UNSPECIFIED 03/21/2016 CHERRI PENG S ATTENDANT CO[employer] OPERATED LAUNDRY Ot R23.2 FLUSHING 03/21/2016 CHERRI PENG S ATTENDANT [employer] OPERATED LAUNDRY Ot 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 03/21/2016 JESSICA MATHIS [...] 03/21/2016 JESSICA MATHIS N Ot 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 03/22/2016 AKASH GONZALES [...] ON RADIOLOGICAL OT 03/23/2016 CHERRI PENG S ATTENDANT [employer] OPER[employer] LAUNDRY Ot 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 03/23/2016 DEL, [...] CARTILAGE DIS NOS 03/23/2016 CHERRI PENG S ATTENDANT [employer] OPERATED LAUNDRY Ot 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 03/23/2016 CHERRI PENG S ATTENDANT COIN OPERATED LAUNDRY 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 03/23/2016 AKASH GONZALES MD Ot 787.20 DYSPHAGIA, UNSPECIFIED 03/23/2016 AKASH GONZALES MD Ot V72.84 EXAM PRE-OPERATIVE NOS 03/23/2016 CHERRI PENG ATTENDANT COIN OPERATED LAUNDRY Ot C61 MALIGNANT NEOPLASM OF PROSTATE 03/23/2016 CHERRI PENG ATTENDANT COIN OPERATED LAUNDRY Ot C79.51 SECONDARY MALIGNANT NEOPLASM OF BONE 03/23/2016 CHERRI PENG ATTENDANT COIN OPERATED LAUNDRY Ot 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, UNSPECIFIED 03/23/2016 CHERRI PENG ATTENDANT COIN OPERATED LAUNDRY Ot R23.2 FLUSHING 03/23/2016 CHERRI PENG ATTENDANT COIN OPERATED LAUNDRY Ot Z79.899 OTHER SENIOR CARE (CURRENT) DRUG THERAPY 03/23/2016 JESSICA MATHIS N [...] 03/23/2016 JESSICA MATHIS N Ot Z79.899 OTHER SENIOR CARE (CURRENT) DRUG THERAPY 03/27/2016 AKASH GONZALES MD [...] ON RADIOLOGICAL OT 04/03/2016 CHERRI PENG S ATTENDANT [employer] OPERATED LAUNDRY Ot 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 04/03/2016 DEL BBOBIAN N Ot 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 04/03/2016 DEL BOBAN N 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 04/03/2016 DEL BOBBIAN N Ot 781.91 LOSS OF HEIGHT 04/03/2016 DEL BOBBIAN N Ot 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 04/03/2016 DEL, BOBAN N 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 04/03/2016 DEL BOBBIAN N Ot 733.90 BONE CARTILAGE DIS NOS 04/03/2016 CHERRI PENG ATTENDANT [employer]IN OPERATED LAUNDRY Ot 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 04/03/2016 CHERRI PENG S ATTENDANT COIN OPERATED LAUNDRY 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 04/03/2016 CHRISTIAN JOYCE, AKASH Galeano Ot 787.20 DYSPHAGIA, UNSPECIFIED 04/03/2016 CHRISTIAN JOYCE, AKASH Galeano Ot V72.84 EXAM PRE-OPERATIVE NOS 04/03/2016 CHERRI PENG ATTENDANT COIN OPERATED LAUNDRY Ot C61 MALIGNANT NEOPLASM OF PROSTATE 04/03/2016 CHERRI PENG ATTENDANT COIN OPERATED LAUNDRY Ot C79.51 SECONDARY MALIGNANT NEOPLASM OF BONE 04/03/2016 CHERRI PENG ATTENDANT COIN OPERATED LAUNDRY Ot 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, UNSPECIFIED 04/03/2016 CHERRI PENG ATTENDANT COIN OPERATED LAUNDRY Ot R23.2 FLUSHING 04/03/2016 CHERRI PENG ATTENDANT COIN OPERATED LAUNDRY Ot Z79.899 OTHER SENIOR CARE (CURRENT) DRUG THERAPY 04/03/2016 DELJESSICA GALARZA N Ot C61 MALIGNANT NEOPLASM OF PROSTATE 04/03/2016 DEL, JESSICA N 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 04/03/2016 DELJESSICA N Ot C79.51 SECONDARY MALIGNANT NEOPLASM OF BONE 04/03/2016 DEL BOBAN N Ot C61 MALIGNANT NEOPLASM OF PROSTATE 04/03/2016 DEL, BOBBIAN N Ot C79.51 SECONDARY MALIGNANT NEOPLASM OF BONE 04/03/2016 DEL BOBBIAN N Ot Z79.899 OTHER SENIOR CARE (CURRENT) DRUG THERAPY 04/10/2016 Ot 788.41 URINARY [...] FINDINGS ON RADIOLOGICAL OT 04/10/2016 CHERRI PENG ATTENDANT [employer]IN OPERATED LAUNDRY Ot 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 04/10/2016 DELBOBBI [...] BONE CARTILAGE DIS NOS 04/10/2016 CHERRI PENG ATTENDANT COIN OPERATED LAUNDRY Ot 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 04/10/2016 CHERRI PENG ATTENDANT COIN OPERATED LAUNDRY 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 04/10/2016 CHRISTIAN JOYCE, AKASH Galeano Ot 787.20 DYSPHAGIA, UNSPECIFIED 04/10/2016 CHRISTIAN JOYCE, AKASH Galeano Ot V72.84 EXAM PRE-OPERATIVE NOS 04/10/2016 CHERRI PENG ATTENDANT COIN OPERATED LAUNDRY Ot C61 MALIGNANT NEOPLASM OF PROSTATE 04/10/2016 CHERRI PENG ATTENDANT COIN OPERATED LAUNDRY Ot C79.51 SECONDARY MALIGNANT NEOPLASM OF BONE 04/10/2016 CHERRI PENG ATTENDANT COIN OPERATED LAUNDRY Ot 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, UNSPECIFIED 04/10/2016 CHERRI PENG ATTENDANT COIN OPERATED LAUNDRY Ot R23.2 FLUSHING 04/10/2016 CHERRI PENG ATTENDANT COIN OPERATED LAUNDRY Ot 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 04/10/2016 JESSICA MATHIS [...] 04/10/2016 JESSICA MATHIS N Ot Z79.899 OTHER SENIOR CARE (CURRENT) DRUG THERAPY 04/12/2016 Ot 788.41 URINARY [...] ON RADIOLOGICAL OT 04/12/2016 CHERRI PENG S ATTENDANT [employer] OPERATED LAUNDRY Ot 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 04/12/2016 DEL [...] CARTILAGE DIS NOS 04/12/2016 CHERRI PENG S ATTENDANT COIN OPERATED LAUNDRY Ot 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 04/12/2016 CHERRI PENG ATTENDANT COIN OPERATED LAUNDRY 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 04/12/2016 CHRISTIAN JOYCE, AKASH Galeano Ot 787.20 DYSPHAGIA, UNSPECIFIED 04/12/2016 CHRISTIAN JOYCE, AKASH Galeano Ot V72.84 EXAM PRE-OPERATIVE NOS 04/12/2016 CHERRI PENG ATTENDANT COIN OPERATED LAUNDRY Ot C61 MALIGNANT NEOPLASM OF PROSTATE 04/12/2016 CHERRI PENG ATTENDANT COIN OPERATED LAUNDRY Ot C79.51 SECONDARY MALIGNANT NEOPLASM OF BONE 04/12/2016 CHERRI PENG ATTENDANT COIN OPERATED LAUNDRY Ot 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, UNSPECIFIED 04/12/2016 CHERRI PENG ATTENDANT COIN OPERATED LAUNDRY Ot R23.2 FLUSHING 04/12/2016 CHERRI PENG ATTENDANT COIN OPERATED LAUNDRY Ot Z79.899 OTHER SENIOR CARE (CURRENT) DRUG THERAPY 04/12/2016 JESSICA MATHIS N [...] 04/12/2016 JESSICA MATHIS N Ot Z79.899 OTHER SENIOR CARE (CURRENT) DRUG THERAPY 05/04/2016 JESSICA MATHIS N Ot C61 MALIGNANT NEOPLASM OF PROSTATE 05/04/2016 DEL BOBAN N Ot C79.51 SECONDARY MALIGNANT NEOPLASM OF BONE 05/04/2016 JESSICA MATHIS N Ot 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 05/07/2016 Ot 788.41 [...] FINDINGS ON RADIOLOGICAL OT 05/07/2016 CHERRI PENG ATTENDANT COIN OPERATED LAUNDRY Ot 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 05/07/2016 DEL [...] CARTILAGE DIS NOS 05/07/2016 CHERRI PENG S ATTENDANT COIN OPERATED LAUNDRY Ot 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 05/07/2016 CHERRI PENG S ATTENDANT COIN OPERATED LAUNDRY 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 05/07/2016 CHRISTIAN JOYCE, AKASH Galeano Ot 787.20 DYSPHAGIA, UNSPECIFIED 05/07/2016 CHRISTIAN JOYCE, AKASH Galeano Ot V72.84 EXAM PRE-OPERATIVE NOS 05/07/2016 CHERRI PENG ATTENDANT COIN OPERATED LAUNDRY Ot C61 MALIGNANT NEOPLASM OF PROSTATE 05/07/2016 CHERRI PENG ATTENDANT COIN OPERATED LAUNDRY Ot C79.51 SECONDARY MALIGNANT NEOPLASM OF BONE 05/07/2016 CHERRI PENG ATTENDANT COIN OPERATED LAUNDRY Ot 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, UNSPECIFIED 05/07/2016 CHERRI PENG ATTENDANT COIN OPERATED LAUNDRY Ot R23.2 FLUSHING 05/07/2016 CHERRI PENG ATTENDANT COIN OPERATED LAUNDRY Ot 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 05/07/2016 DELJESSICA GALARZA [...] 05/07/2016 DEL, BOBAN N Ot Z79.899 OTHER SENIOR CARE (CURRENT) DRUG THERAPY 05/08/2016 Ot 788.41 URINARY [...] ON RADIOLOGICAL OT 05/08/2016 CHERRI PENG S ATTENDANT COIN OPERATED LAUNDRY Ot 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 05/08/2016 DEL [...] CARTILAGE DIS NOS 05/08/2016 CHERRI PENG S ATTENDANT COIN OPERATED LAUNDRY Ot 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 05/08/2016 CHERRI PENG S ATTENDANT COIN OPERATED LAUNDRY 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 05/08/2016 CHRISTIAN JOYCE, AKASH Galeano Ot 787.20 DYSPHAGIA, UNSPECIFIED 05/08/2016 CHRISTIAN JOYCE, AKASH Galeano Ot V72.84 EXAM PRE-OPERATIVE NOS 05/08/2016 CHERRI PENG S ATTENDANT COIN OPERATED LAUNDRY Ot C61 MALIGNANT NEOPLASM OF PROSTATE 05/08/2016 CHERRI PENG S ATTENDANT COIN OPERATED LAUNDRY Ot C79.51 SECONDARY MALIGNANT NEOPLASM OF BONE 05/08/2016 CHERRI PENG ATTENDANT COIN OPERATED LAUNDRY Ot 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, UNSPECIFIED 05/08/2016 CHERRI PENG S ATTENDANT COIN OPERATED LAUNDRY Ot R23.2 FLUSHING 05/08/2016 CHERRI PENG ATTENDANT COIN OPERATED LAUNDRY Ot Z79.899 OTHER SENIOR CARE (CURRENT) DRUG THERAPY 05/08/2016 JESSICA MATHIS N [...] 05/08/2016 JESSICA MATHIS N Ot Z79.899 OTHER SENIOR CARE (CURRENT) DRUG THERAPY 05/11/2016 Ot 788.41 URINARY [...] ON RADIOLOGICAL OT 05/11/2016 CHERRI PENG S ATTENDANT COIN OPERATED LAUNDRY Ot 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 05/11/2016 DEL [...] CARTILAGE DIS NOS 05/11/2016 CHERRI PENG S ATTENDANT COIN OPERATED LAUNDRY Ot 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 05/11/2016 CHERRI PENG S ATTENDANT COIN OPERATED LAUNDRY 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 05/11/2016 CHRISTIAN JOYCE, AKASH Galeano Ot 787.20 DYSPHAGIA, UNSPECIFIED 05/11/2016 CHRISTIAN JOYCE, AKASH Galeano Ot V72.84 EXAM PRE-OPERATIVE NOS 05/11/2016 CHERRI PENG ATTENDANT COIN OPERATED LAUNDRY Ot C61 MALIGNANT NEOPLASM OF PROSTATE 05/11/2016 CHERRI PENG ATTENDANT COIN OPERATED LAUNDRY Ot C79.51 SECONDARY MALIGNANT NEOPLASM OF BONE 05/11/2016 CHERRI PENG ATTENDANT COIN OPERATED LAUNDRY Ot 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, UNSPECIFIED 05/11/2016 CHERRI PENG ATTENDANT COIN OPERATED LAUNDRY Ot R23.2 FLUSHING 05/11/2016 CHERRI PENG ATTENDANT COIN OPERATED LAUNDRY Ot 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 05/11/2016 JESSICA MATHIS [...] 05/11/2016 JESSICA MATHIS N Ot 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 05/14/2016 CHERRI PENG ATTENDANT COIN OPERATED LAUNDRY Ot C61 MALIGNANT NEOPLASM OF PROSTATE 05/14/2016 CHERRI PENG ATTENDANT COIN OPERATED LAUNDRY Ot C79.51 SECONDARY MALIGNANT NEOPLASM OF BONE 05/14/2016 CHERRI PENG ATTENDANT COIN OPERATED LAUNDRY Ot Z79.899 OTHER SENIOR CARE (CURRENT) DRUG THERAPY 05/29/2016 Ot 788.41 URINARY FREQUENCY 05/29/2016 Ot 185 MALIGN NEOPL PROSTATE 05/29/2016 Ot V72.84 EXAM PRE- OPERATIVE NOS 05/29/2016 CHRISTIAN JOYCE, AKASH Galeano Ot V72.84 EXAM PRE-OPERATIVE NOS 05/29/2016 CHRISITAN JOYCE, AKASH Galeano Ot 154.1 MALIGNANT NEOPL [...] ON RADIOLOGICAL OT 05/29/2016 CHERRI PENG S ATTENDANT COIN OPERATED LAUNDRY Ot 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 05/29/2016 DEL [...] CARTILAGE DIS NOS 05/29/2016 CHERRI PENG S ATTENDANT COIN OPERATED LAUNDRY Ot 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 05/29/2016 CHERRI PENG S ATTENDANT COIN OPERATED LAUNDRY 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 05/29/2016 CHRISTIAN JOYCE, AKASH Galeano Ot 787.20 DYSPHAGIA, UNSPECIFIED 05/29/2016 AKASH GONZALES MD Ot V72.84 EXAM PRE-OPERATIVE NOS 05/29/2016 CHERRI PENG ATTENDANT COIN OPERATED LAUNDRY Ot C61 MALIGNANT NEOPLASM OF PROSTATE 05/29/2016 CHERRI PENG S ATTENDANT COIN OPERATED LAUNDRY Ot C79.51 SECONDARY MALIGNANT NEOPLASM OF BONE 05/29/2016 CHERRI PENG ATTENDANT COIN OPERATED LAUNDRY Ot 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, UNSPECIFIED 05/29/2016 CHERRI PENG S ATTENDANT COIN OPERATED LAUNDRY Ot R23.2 FLUSHING 05/29/2016 CHERRI PENG S ATTENDANT COIN OPERATED LAUNDRY Ot 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 05/29/2016 JESSICA MATHIS [...] 05/29/2016 DEL BOBAN N Ot 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] ON RADIOLOGICAL OT 06/05/2016 CHERRI PENG S ATTENDANT [employer]PERATED LAUNDRY Ot 185 MALIGN NEOPL PROSTATE 06/05/2016 DEL, [...] CARTILAGE DIS NOS 06/05/2016 CHERRI PENG S ATTENDANT [employer]PERATED LAUNDRY Ot 185 MALIGN NEOPL PROSTATE 06/05/2016 CHERRI PENG S ATTENDANT [employer]PERATED LAUNDRY 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 06/05/2016 CHRISTIAN JOYCE, AKASH Galeano Ot 787.20 DYSPHAGIA, UNSPECIFIED 06/05/2016 CHRISTIAN JOYCE, AKASH Galeano Ot V72.84 EXAM PRE-OPERATIVE NOS 06/05/2016 CHERRI PENG ATTENDANT [employer]PERATED LAUNDRY Ot C61 MALIGNANT NEOPLASM OF PROSTATE 06/05/2016 CHERRI PENG ATTENDANT COIN OPERATED LAUNDRY Ot C79.51 SECONDARY MALIGNANT NEOPLASM OF BONE 06/05/2016 CHERRI PENG ATTENDANT [employer] OPERATED LAUNDRY Ot 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, UNSPECIFIED 06/05/2016 CHERRI PENG ATTENDANT [employer] OPERATED LAUNDRY Ot R23.2 FLUSHING 06/05/2016 CHERRI PENG ATTENDANT [employer] OPERATED LAUNDRY Ot 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 06/05/2016 JESSICA MATHIS [...] 06/05/2016 JESSICA MATHIS N Ot Z79.899 OTHER SENIOR CARE (CURRENT) DRUG THERAPY 06/05/2016 CHERRI PENG ATTENDANT COIN OPERATED LAUNDRY Ot C61 MALIGNANT NEOPLASM OF PROSTATE 06/05/2016 CHERRI PENG ATTENDANT [employer]IN OPERATED LAUNDRY Ot C79.51 SECONDARY MALIGNANT NEOPLASM OF BONE 06/05/2016 CHERRI PENG ATTENDANT COIN OPERATED LAUNDRY Ot Z79.899 OTHER SENIOR CARE (CURRENT) DRUG THERAPY 06/05/2016 JESSICA MATHIS N Ot C61 MALIGNANT NEOPLASM OF PROSTATE 06/05/2016 JESSICA MATHIS N Ot C79.51 SECONDARY MALIGNANT NEOPLASM OF BONE 06/05/2016 JESSICA MATHIS N Ot Z79.899 OTHER SENIOR CARE (CURRENT) DRUG THERAPY 06/05/2016 JESSICA MATHIS N Ot C61 MALIGNANT NEOPLASM OF PROSTATE 06/05/2016 DELJESSICA GALARZA N Ot C79.51 SECONDARY MALIGNANT NEOPLASM OF BONE 06/05/2016 DELJESSICA GALARZA N Ot 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 06/06/2016 CHERRI PENG ATTENDANT [employer]IN OPERATED LAUNDRY Ot C61 MALIGNANT NEOPLASM OF PROSTATE 06/06/2016 CHERRI PENG ATTENDANT COIN OPERATED LAUNDRY Ot C79.51 SECONDARY MALIGNANT NEOPLASM OF BONE 06/06/2016 CHERRI PENG ATTENDANT COIN OPERATED LAUNDRY Ot 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 06/15/2016 Ot 788.41 [...] FINDINGS ON RADIOLOGICAL OT 06/15/2016 CHERRI PENG ATTENDANT [employer]PERATED LAUNDRY Ot 185 MALIGN NEOPL PROSTATE 06/15/2016 DEL [...] CARTILAGE DIS NOS 06/15/2016 CHERRI PENG S ATTENDANT [employer] OPERATED LAUNDRY Ot 185 MALIGN NEOPL PROSTATE 06/15/2016 CHERRI PENG S ATTENDANT [employer] OPERATED LAUNDRY 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 06/15/2016 CHRISTIAN JOYCE, AKASH Galeano Ot 787.20 DYSPHAGIA, UNSPECIFIED 06/15/2016 AKASH GONZALES MD Ot V72.84 EXAM PRE-OPERATIVE NOS 06/15/2016 CHERRI PENG ATTENDANT [employer] OPERATED LAUNDRY Ot C61 MALIGNANT NEOPLASM OF PROSTATE 06/15/2016 CHERRI PENG ATTENDANT [employer]IN OPERATED LAUNDRY Ot C79.51 SECONDARY MALIGNANT NEOPLASM OF BONE 06/15/2016 CHERRI PENG ATTENDANT [employer] OPERATED LAUNDRY Ot 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, UNSPECIFIED 06/15/2016 CHERRI PENG ATTENDANT [employer] OPERATED LAUNDRY Ot R23.2 FLUSHING 06/15/2016 CHERRI PENG ATTENDANT [employer] OPERATED LAUNDRY Ot Z79.899 OTHER SENIOR CARE (CURRENT) DRUG THERAPY 06/15/2016 JESSICA MATHIS N [...] 06/15/2016 JESSICA MATHIS N Ot Z79.899 OTHER SENIOR CARE (CURRENT) DRUG THERAPY 06/15/2016 PENGCHERRI S ATTENDANT COIN OPERATED LAUNDRY Ot C61 MALIGNANT NEOPLASM OF PROSTATE 06/15/2016 PENGCHERRI S ATTENDANT COIN OPERATED LAUNDRY Ot C79.51 SECONDARY MALIGNANT NEOPLASM OF BONE 06/15/2016 PENGVITORAH S ATTENDANT [employer]PER[employer]UNDRY Ot 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 07/23/2016 Ot 788.41 [...] FINDINGS ON RADIOLOGICAL OT 07/23/2016 PENGCHERRI S ATTENDANT [employer]UNDRY Ot 185 MALIGN NEOPL PROSTATE 07/23/2016 DELBOBBIAN N Ot 185 MALIGN NEOPL PROSTATE 07/23/2016 DEL BOBAN N 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 07/23/2016 BOBBI MATHISAN N Ot 781.91 LOSS OF HEIGHT 07/23/2016 DELBOBBIAN N Ot 185 MALIGN NEOPL PROSTATE 07/23/2016 DEL BOBAN N 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 07/23/2016 DELJESSICA GALARZA N Ot 733.90 BONE CARTILAGE DIS NOS 07/23/2016 CHERRI PENG ATTENDANT [employer]UNDRY Ot 185 MALIGN NEOPL PROSTATE 07/23/2016 CHERRI PENG S ATTENDANT [employer]UNDRY 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 07/23/2016 AKASH GONZALES MD Ot 787.20 DYSPHAGIA, UNSPECIFIED 07/23/2016 AKASH GONZALES MD Ot V72.84 EXAM PRE-OPERATIVE NOS 07/23/2016 CHERRI PENG S ATTENDANT [employer]UNDR[employer] Ot C61 MALIGNANT NEOPLASM OF PROSTATE 07/23/2016 CHERRI PENG S ATTENDANT [employer]PER[employer]UNDRY Ot C79.51 SECONDARY MALIGNANT NEOPLASM OF BONE 07/23/2016 CHERRI PENG ATTENDANT [employer]UNDRY Ot 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, UNSPECIFIED 07/23/2016 CHERRI PENG S ATTENDANT [employer]UNDR[employer] Ot R23.2 FLUSHING 07/23/2016 CHERRI PENG S ATTENDANT [employer]PER[employer]UNDRY Ot Z79.899 OTHER SENIOR CARE (CURRENT) DRUG THERAPY 07/23/2016 BOBBI MATHISLUZ N [...] 07/23/2016 DELJESSICA GALARZA N Ot 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 07/23/2016 CHERRI PENG S ATTENDANT [employer]UNDRY Ot C61 MALIGNANT NEOPLASM OF PROSTATE 07/23/2016 CHERRI PENG S ATTENDANT [employer]PER[employer]UNDRY Ot C79.51 SECONDARY MALIGNANT NEOPLASM OF BONE 07/23/2016 CHERRI PENG S ATTENDANT [employer]PER[employer] LAUNDRY Ot Z79.899 OTHER SENIOR CARE (CURRENT) DRUG THERAPY 07/23/2016 DELBOBBIAN N Ot C61 MALIGNANT NEOPLASM OF PROSTATE 07/23/2016 DELBOBBIAN N Ot C79.51 SECONDARY MALIGNANT NEOPLASM OF BONE 07/23/2016 DELJESSICA GALARZA N Ot Z79.899 OTHER SENIOR CARE (CURRENT) DRUG THERAPY 08/24/2016 JESSICA MATHIS N Ot C61 MALIGNANT NEOPLASM OF PROSTATE 08/24/2016 DELJESSICA GALARZA N Ot C79.51 SECONDARY MALIGNANT NEOPLASM OF BONE 08/24/2016 DELBOBBIAN N Ot Z79.899 OTHER SENIOR CARE (CURRENT) DRUG THERAPY 09/14/2016 PENGCHERRI Fernandez ATTENDANT [employer]PER[employer]UNDRY Ot 185 MALIGN NEOPL PROSTATE 09/14/2016 CHERRI PENG ATTENDANT [employer]PER[employer]UNDRY 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 10/11/2016 DEL BOBAN N Ot C61 MALIGNANT NEOPLASM OF PROSTATE 10/11/2016 DEL BOBAN N Ot C79.51 SECONDARY MALIGNANT NEOPLASM OF BONE 10/11/2016 DEL BOBAN N Ot 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 10/24/2016 DEL BOBAN N Ot C61 MALIGNANT NEOPLASM OF PROSTATE 10/24/2016 DEL BOBAN N Ot C79.51 SECONDARY MALIGNANT NEOPLASM OF BONE 10/24/2016 DEL BOBAN N Ot 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 11/21/2016 DEL BOBAN N Ot C61 MALIGNANT NEOPLASM OF PROSTATE 11/21/2016 DEL BOBAN N Ot C79.51 SECONDARY MALIGNANT NEOPLASM OF BONE 11/21/2016 DEL BOBAN N Ot 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 11/22/2016 DEL, BOBAN N Ot C61 MALIGNANT NEOPLASM OF PROSTATE 11/22/2016 DEL BOBAN N Ot C79.51 SECONDARY MALIGNANT NEOPLASM OF BONE 11/22/2016 DEL BOBAN N Ot Z79.899 OTHER SENIOR CARE (CURRENT) DRUG THERAPY 02/20/2017 DEL, BOBAN N Ot C61 MALIGNANT NEOPLASM OF PROSTATE 02/20/2017 DEL, BOBAN N Ot C79.51 SECONDARY MALIGNANT NEOPLASM OF BONE 02/20/2017 DEL BOBAN N Ot Z79.899 OTHER SENIOR CARE (CURRENT) DRUG THERAPY 03/12/2017 DEL, BOBAN N Ot C61 MALIGNANT NEOPLASM OF PROSTATE 03/12/2017 DEL, BOBAN N Ot C79.51 SECONDARY MALIGNANT NEOPLASM OF BONE 03/12/2017 DEL, BOBAN N Ot 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 03/13/2017 DEL, BOBAN N Ot C61 MALIGNANT NEOPLASM OF PROSTATE 03/13/2017 DEL, BOBAN N Ot C79.51 SECONDARY MALIGNANT NEOPLASM OF BONE 03/13/2017 JESSICA MATHIS N Ot 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 03/14/2017 JESSICA MATHIS N Ot C61 MALIGNANT NEOPLASM OF PROSTATE 03/14/2017 JESSICA MATHIS N Ot C79.51 SECONDARY MALIGNANT NEOPLASM OF BONE 03/14/2017 JESSICA MATHIS N Ot Z79.899 OTHER SENIOR CARE (CURRENT) DRUG THERAPY 03/14/2017 JESSICA MATHIS N Ot C61 MALIGNANT NEOPLASM OF PROSTATE 03/14/2017 JESSICA MATHIS N Ot C79.51 SECONDARY MALIGNANT NEOPLASM OF BONE 03/14/2017 JESSICA MATHIS N Ot 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 03/19/2017 JESSICA MATHIS N Ot C61 MALIGNANT NEOPLASM OF PROSTATE 03/19/2017 JESSICA MATHIS N Ot C79.51 SECONDARY MALIGNANT NEOPLASM OF BONE 03/19/2017 JESSICA MATHIS N Ot 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 04/04/2017 HALIE LORENZO [...] FINDINGS ON RADIOLOGICAL OT 04/11/2017 CHERRI PENG ATTENDANT [employer]PER[employer]UNDRY Ot 185 MALIGN NEOPL PROSTATE 04/11/2017 DEL [...] BONE CARTILAGE DIS NOS 04/11/2017 CHERRI PENG ATTENDANT [employer]PER[employer]UNDRY Ot 185 MALIGN NEOPL PROSTATE 04/11/2017 CHERRI PENG ATTENDANT [employer]UNDRY 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 04/11/2017 CHRISTIAN JOYCE, AKASH Galeano Ot 787.20 DYSPHAGIA, UNSPECIFIED 04/11/2017 CHRISTIAN JOYCE, AKASH Galeano Ot V72.84 EXAM PRE-OPERATIVE NOS 04/11/2017 CHERRI PENG ATTENDANT [employer]PER[employer] LAUNDRY Ot C61 MALIGNANT NEOPLASM OF PROSTATE 04/11/2017 CHERRI PENG ATTENDANT [employer]PER[employer] LAUNDRY Ot C79.51 SECONDARY MALIGNANT NEOPLASM OF BONE 04/11/2017 CHERRI PENG ATTENDANT [employer]PER[employer]UNDRY Ot 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, UNSPECIFIED 04/11/2017 CHERRI PENG ATTENDANT [employer]PER[employer]UNDRY Ot R23.2 FLUSHING 04/11/2017 CHERRI PENG S ATTENDANT [employer]PER[employer]UNDRY Ot Z79.899 OTHER SENIOR CARE (CURRENT) DRUG THERAPY 04/11/2017 DEL JESSICA N Ot C61 MALIGNANT NEOPLASM OF PROSTATE 04/11/2017 DELJESSICA N 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 04/11/2017 DELJESSICA N Ot C79.51 SECONDARY MALIGNANT NEOPLASM OF BONE 04/11/2017 CHERRI PENG ATTENDANT [employer]PER[employer] LAUNDRY Ot C61 MALIGNANT NEOPLASM OF PROSTATE 04/11/2017 CHERRI PENG ATTENDANT [employer]PER[employer]UNDRY Ot C79.51 SECONDARY MALIGNANT NEOPLASM OF BONE 04/11/2017 CHERRI PENG ATTENDANT [employer]PER[employer]UNDRY Ot 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 04/11/2017 DEL JESSICA N Ot C61 MALIGNANT NEOPLASM OF PROSTATE 04/11/2017 DEL JESSICA N Ot C79.51 SECONDARY MALIGNANT NEOPLASM OF BONE 04/11/2017 DEL JESSICA N Ot 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 04/12/2017 DEL JESSICA N Ot C61 MALIGNANT NEOPLASM OF PROSTATE 04/12/2017 DEL JESSICA N Ot C79.51 SECONDARY MALIGNANT NEOPLASM OF BONE 04/12/2017 DELJESSICA N Ot Z79.899 OTHER SENIOR CARE (CURRENT) DRUG THERAPY 05/06/2017 DELJESSICA N Ot C61 MALIGNANT NEOPLASM OF PROSTATE 05/06/2017 DEL BOBAN N Ot C79.51 SECONDARY MALIGNANT NEOPLASM OF BONE 05/06/2017 DEL BOBAN N Ot Z79.899 OTHER SENIOR CARE (CURRENT) DRUG THERAPY 06/26/2017 DEL BOBAN N Ot C61 MALIGNANT NEOPLASM OF PROSTATE 06/26/2017 DEL BOBAN N Ot C79.51 SECONDARY MALIGNANT NEOPLASM OF BONE 06/26/2017 DEL BOBAN N Ot 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 07/10/2017 DEL BOBAN N Ot C61 MALIGNANT NEOPLASM OF PROSTATE 07/10/2017 DEL BOBAN N Ot C79.51 SECONDARY MALIGNANT NEOPLASM OF BONE 07/10/2017 DEL BOBLUZ N Ot 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 08/02/2017 DEL BOBLUZ N Ot C61 MALIGNANT NEOPLASM OF PROSTATE 08/02/2017 DEL BOBAN N Ot C79.51 SECONDARY MALIGNANT NEOPLASM OF BONE 08/02/2017 DEL BOBAN N Ot Z79.899 OTHER SENIOR CARE (CURRENT) DRUG THERAPY 09/06/2017 DELJESSICA N Ot C61 MALIGNANT NEOPLASM OF PROSTATE 09/06/2017 DEL BOBAN N Ot C79.51 SECONDARY MALIGNANT NEOPLASM OF BONE 09/06/2017 DEL BOBAN N Ot Z79.899 OTHER SENIOR CARE (CURRENT) DRUG THERAPY 09/30/2017 DEL BOBLUZ N Ot C61 MALIGNANT NEOPLASM OF PROSTATE 09/30/2017 DEL BOBAN N Ot C79.51 SECONDARY MALIGNANT NEOPLASM OF BONE 09/30/2017 DEL BOBAN N Ot Z79.899 OTHER SENIOR CARE (CURRENT) DRUG THERAPY 10/30/2017 DEL BOBAN N Ot C61 MALIGNANT NEOPLASM OF PROSTATE 10/30/2017 DEL BOBAN N Ot C79.51 SECONDARY MALIGNANT NEOPLASM OF BONE 10/30/2017 DEL BOBAN N Ot Z79.899 OTHER SENIOR CARE (CURRENT) DRUG THERAPY 10/31/2017 DEL BOBAN N Ot C61 MALIGNANT NEOPLASM OF PROSTATE 10/31/2017 DEL, BOBAN N Ot C79.51 SECONDARY MALIGNANT NEOPLASM OF BONE 10/31/2017 JESSICA MATHIS N Ot 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 11/21/2017 Ot 185 [...] FINDINGS ON RADIOLOGICAL OT 11/21/2017 CHERRI PENG ATTENDANT [employer]UNDRY Ot 185 MALIGN NEOPL PROSTATE 11/21/2017 DEL [...] BONE CARTILAGE DIS NOS 11/21/2017 CHERRI PENG ATTENDANT [employer]PER[employer]UNDRY Ot 185 MALIGN NEOPL PROSTATE 11/21/2017 CHERRI PENG ATTENDANT [employer]UNDRY 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 11/21/2017 CHRISTIAN JOYCE, AKASH Galeano Ot 787.20 DYSPHAGIA, UNSPECIFIED 11/21/2017 CHRISTIAN JOYCE, AKASH Galeano Ot V72.84 EXAM PRE-OPERATIVE NOS 11/21/2017 CHERRI PENG ATTENDANT [employer]PER[employer] LAUNDRY Ot C61 MALIGNANT NEOPLASM OF PROSTATE 11/21/2017 CHERRI PENG ATTENDANT [employer]PER[employer] LAUNDRY Ot C79.51 SECONDARY MALIGNANT NEOPLASM OF BONE 11/21/2017 CHERRI PENG ATTENDANT [employer]PER[employer]UNDRY Ot 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, UNSPECIFIED 11/21/2017 PENG, HILAH S ATTENDANT [employer]PER[employer] LAUNDRY Ot R23.2 FLUSHING 11/21/2017 PENGCHERRI Fernandez S ATTENDANT [employer]PER[employer] LAUNDRY Ot 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 11/21/2017 DELJESSICA GALARZA N Ot C61 MALIGNANT NEOPLASM OF PROSTATE 11/21/2017 DEL, BOBAN N 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 11/21/2017 DEL BOBAN N Ot C79.51 SECONDARY MALIGNANT NEOPLASM OF BONE 11/21/2017 CHERRI PENG S ATTENDANT [employer]PER[employer] LAUNDRY Ot C61 MALIGNANT NEOPLASM OF PROSTATE 11/21/2017 PENGVITORAH S ATTENDANT [employer]PER[employer] LAUNDRY Ot C79.51 SECONDARY MALIGNANT NEOPLASM OF BONE 11/21/2017 PENGCHERRI S ATTENDANT [employer]PER[employer] LAUNDRY Ot Z79.899 OTHER SENIOR CARE (CURRENT) DRUG THERAPY 01/03/2018 DELJESSICA N Ot C61 MALIGNANT NEOPLASM OF PROSTATE 01/03/2018 DEL BOBAN N Ot C79.51 SECONDARY MALIGNANT NEOPLASM OF BONE 01/03/2018 DEL, BOBAN N Ot 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 01/29/2018 DEL BOBLUZ N Ot C61 MALIGNANT NEOPLASM OF PROSTATE 01/29/2018 DEL BOBAN N Ot C79.51 SECONDARY MALIGNANT NEOPLASM OF BONE 01/29/2018 DEL BOBAN N Ot Z79.899 OTHER SENIOR CARE (CURRENT) DRUG THERAPY 02/19/2018 DEL, BOBAN N Ot C61 MALIGNANT NEOPLASM OF PROSTATE 02/19/2018 DEL BOBAN N Ot C79.51 SECONDARY MALIGNANT NEOPLASM OF BONE 02/19/2018 DEL BOBAN N Ot 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 02/20/2018 DEL, BOBAN N Ot C61 MALIGNANT NEOPLASM OF PROSTATE 02/20/2018 DEL, BOBAN N Ot C79.51 SECONDARY MALIGNANT NEOPLASM OF BONE 02/20/2018 DEL, BOBAN N Ot Z79.899 OTHER SENIOR CARE (CURRENT) DRUG THERAPY 03/17/2018 DEL, BOBAN N Ot C61 MALIGNANT NEOPLASM OF PROSTATE 03/17/2018 DEL, BOBAN N Ot C79.51 SECONDARY MALIGNANT NEOPLASM OF BONE 03/17/2018 DEL, BOBAN N Ot Z79.899 OTHER SENIOR CARE (CURRENT) DRUG THERAPY 04/04/2018 DEL, BOBAN N Ot C61 MALIGNANT NEOPLASM OF PROSTATE 04/04/2018 DELBOBBIAN N Ot C79.51 SECONDARY MALIGNANT NEOPLASM OF BONE 04/04/2018 DELBOBBIAN N Ot Z79.899 OTHER SENIOR CARE (CURRENT) DRUG THERAPY 06/11/2018 DEL BOBAN N Ot C61 MALIGNANT NEOPLASM OF PROSTATE 06/11/2018 DEL BOBAN N Ot C79.51 SECONDARY MALIGNANT NEOPLASM OF BONE 06/11/2018 DEL BOBAN N Ot 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 06/26/2018 DEL BOBAN N Ot C61 MALIGNANT NEOPLASM OF PROSTATE 06/26/2018 DEL BOBAN N Ot C79.51 SECONDARY MALIGNANT NEOPLASM OF BONE 06/26/2018 DEL, BOBAN N Ot Z79.899 OTHER SENIOR CARE (CURRENT) DRUG THERAPY 06/27/2018 DEL BOBAN N Ot C61 MALIGNANT NEOPLASM OF PROSTATE 06/27/2018 DEL BOBAN N Ot C79.51 SECONDARY MALIGNANT NEOPLASM OF BONE 06/27/2018 DEL BOBAN N Ot Z79.899 OTHER SENIOR CARE (CURRENT) DRUG THERAPY 07/02/2018 DEL BOBAN N Ot C61 MALIGNANT NEOPLASM OF PROSTATE 07/02/2018 DEL BOBAN N Ot C79.51 SECONDARY MALIGNANT NEOPLASM OF BONE 07/02/2018 DEL BOBAN N Ot Z79.899 OTHER SENIOR CARE (CURRENT) DRUG THERAPY 07/02/2018 CHRISTIAN JOYCE, AKASH [...] FINDINGS ON RADIOLOGICAL OT 07/02/2018 CHERRI PENG ATTENDANT [employer]UNDRY Ot 185 MALIGN NEOPL PROSTATE 07/02/2018 DEL [...] BONE CARTILAGE DIS NOS 07/02/2018 CHERRI PENG ATTENDANT [employer]PER[employer] LAUNDRY Ot 185 MALIGN NEOPL PROSTATE 07/02/2018 CHERRI PENG ATTENDANT [employer]PER[employer] LAUNDRY 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 07/02/2018 CHRISTIAN JOYCE, AKASH Galeano Ot 787.20 DYSPHAGIA, UNSPECIFIED 07/02/2018 AKASH GONZALES MD Ot V72.84 EXAM PRE-OPERATIVE NOS 07/02/2018 CHERRI PENG ATTENDANT [employer]PER[employer] LAUNDRY Ot C61 MALIGNANT NEOPLASM OF PROSTATE 07/02/2018 CHERRI PENG S ATTENDANT [employer]PER[employer] LAUNDRY Ot C79.51 SECONDARY MALIGNANT NEOPLASM OF BONE 07/02/2018 CHERRI PENG ATTENDANT [employer]PER[employer] LAUNDRY Ot 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, UNSPECIFIED 07/02/2018 CHERRI PENG S ATTENDANT [employer]PER[employer] LAUNDRY Ot R23.2 FLUSHING 07/02/2018 CHERRI PENG S ATTENDANT [employer]PER[employer] LAUNDRY Ot Z79.899 OTHER SENIOR CARE (CURRENT) DRUG THERAPY 07/02/2018 JESSICA MATHIS N Ot C61 MALIGNANT NEOPLASM OF PROSTATE 07/02/2018 JESSICA MATHIS N 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 07/02/2018 JESSICA MATHIS N Ot C79.51 SECONDARY MALIGNANT NEOPLASM OF BONE 07/02/2018 CHERRI PENG S ATTENDANT [employer]IN [employer]PERATED LAUNDRY Ot C61 MALIGNANT NEOPLASM OF PROSTATE 07/02/2018 CHERRI PENG S ATTENDANT [employer]IN OPERATED LAUNDRY Ot C79.51 SECONDARY MALIGNANT NEOPLASM OF BONE 07/02/2018 CHERRI PENG S ATTENDANT [employer]PER[employer] LAUNDRY Ot Z79.899 OTHER SENIOR CARE (CURRENT) DRUG THERAPY 07/02/2018 BALDO WHEELER DC [...] 07/13/2018 AMOL PIERSON MD Ot Z79.899 OTHER SENIOR CARE (CURRENT) DRUG THERAPY 07/15/2018 AMOL PIERSON MD Ot C61 MALIGNANT NEOPLASM OF PROSTATE 07/15/2018 AMOL PIERSON MD Ot C79.51 SECONDARY MALIGNANT NEOPLASM OF BONE 07/15/2018 AMOL PIERSON MD Ot Z79.899 OTHER SENIOR CARE (CURRENT) DRUG THERAPY 07/23/2018 BALDO WHEELER DC [...] FINDINGS ON RADIOLOGICAL OT 08/05/2018 CHERRI PENG ATTENDANT [employer]PER[employer] LAUNDRY Ot 185 MALIGN NEOPL PROSTATE 08/05/2018 BOBBI [...] CARTILAGE DIS NOS 08/05/2018 PENG, HILAH S ATTENDANT [employer]PER[employer] LAUNDRY Ot 185 MALIGN NEOPL PROSTATE 08/05/2018 GINETTE CHERRI S ATTENDANT [employer]PER[employer] LAUNDRY 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 08/05/2018 CHRISTIAN JOYCE, AKASH Galeano Ot 787.20 DYSPHAGIA, UNSPECIFIED 08/05/2018 CHRISTIAN JOYCE, AKASH Galeano Ot V72.84 EXAM PRE-OPERATIVE NOS 08/05/2018 CHERRI PENG S ATTENDANT [employer] OPERATED LAUNDRY Ot C61 MALIGNANT NEOPLASM OF PROSTATE 08/05/2018 CHERRI PENG S ATTENDANT [employer]PER[employer] LAUNDRY Ot C79.51 SECONDARY MALIGNANT NEOPLASM OF BONE 08/05/2018 VITOR PENGNEYMAR S ATTENDANT COIN OPERATED LAUNDRY Ot 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, UNSPECIFIED 08/05/2018 VITOR PENGNEYMAR S ATTENDANT [employer]PERATED LAUNDRY Ot R23.2 FLUSHING 08/05/2018 VITOR PENGNEYMAR S ATTENDANT [employer]IN OPERATED LAUNDRY Ot 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 08/05/2018 JESSICA MATHIS N Ot C61 MALIGNANT NEOPLASM OF PROSTATE 08/05/2018 DELJESSICA N 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 08/05/2018 JESSICA MATHIS N Ot C79.51 SECONDARY MALIGNANT NEOPLASM OF BONE 08/05/2018 CHERRI PENG Jim ATTENDANT COIN OPERATED LAUNDRY Ot C61 MALIGNANT NEOPLASM OF PROSTATE 08/05/2018 GINETTE CHERRI Fernandez ATTENDANT [employer]PER[employer] LAUNDRY Ot C79.51 SECONDARY MALIGNANT NEOPLASM OF BONE 08/05/2018 GINETTE CHERRI Fernandez ATTENDANT [employer] OPERATED LAUNDRY Ot 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 08/05/2018 BALDO WHEELER [...] 08/21/18 14:20 Bacterial urine culture NG NRG Complete blood count (CBC) with automated white blood cell (WBC) differential - 10/21/18 03:52 Blood leukocytes automated count (number/volume) 5.2 10*3/uL 4.3-11.0 Blood erythrocytes automated count (number/volume) 4.07 10*6/uL 4.35-5.85 Venous blood hemoglobin measurement (mass/volume) 12.3 g/dL 13.3-17.7 Blood hematocrit (volume fraction) 36 % 40-54 Automated erythrocyte mean corpuscular volume 89 [foz_us] 80-99 Automated erythrocyte mean corpuscular hemoglobin (mass per erythrocyte) 30 pg 25-34 Automated erythrocyte mean corpuscular hemoglobin concentration measurement ( mass/volume) 34 g/dL 32-36 Automated erythrocyte distribution width ratio 12.3 % 10.0-14.5 Automated blood platelet count (count/volume) 311 10*3/uL 130-400 Automated blood platelet mean volume measurement 8.2 [foz_us] 7.4-10.4 Automated blood neutrophils/100 leukocytes 55 % 42-75 Automated blood lymphocytes/100 leukocytes 22 % 12-44 Blood monocytes/100 leukocytes 12 % 0-12 Automated blood eosinophils/100 leukocytes 10 % 0-10 Automated blood basophils/100 leukocytes 1 % 0-10 Blood neutrophils automated count (number/volume) 2.9 10*3 1.8-7.8 Blood lymphocytes automated count (number/volume) 1.2 10*3 1.0-4.0 Blood monocytes automated count (number/volume) 0.6 10*3 0.0-1.0 Automated eosinophil count 0.5 10*3/uL 0.0-0.3 Automated blood basophil count (count/volume) 0.1 10*3/uL 0.0-0.1 Comprehensive metabolic panel - 10/21/18 03:52 Serum or plasma sodium measurement (moles/volume) 145 mmol/L 135-145 Serum or plasma potassium measurement (moles/volume) 3.7 mmol/L 3.6-5.0 Serum or plasma chloride measurement (moles/volume) 109 mmol/L 98-107 Carbon dioxide 25 mmol/L 21-32 Serum or plasma anion gap determination (moles/volume) 11 mmol/L 5-14 Serum or plasma urea nitrogen measurement (mass/volume) 14 mg/dL 7-18 Serum or plasma creatinine measurement (mass/volume) 0.88 mg/dL 0.60-1.30 Serum or plasma urea nitrogen/creatinine mass ratio 16 NRG Serum or plasma creatinine measurement with calculation of estimated glomerular filtration rate > NRG Serum or plasma glucose measurement (mass/volume) 96 mg/dL 70-105 Serum or plasma calcium measurement (mass/volume) 9.6 mg/dL 8.5-10.1 Serum or plasma total bilirubin measurement (mass/volume) 0.6 mg/dL 0.1-1.0 Serum or plasma alkaline phosphatase measurement (enzymatic activity/volume) 106 U/L 40-136 Serum or plasma aspartate aminotransferase measurement (enzymatic activity/ volume) 19 U/L 5-34 Serum or plasma alanine aminotransferase measurement (enzymatic activity/volume ) 9 U/L 0-55 Serum or plasma protein measurement (mass/volume) 6.7 g/dL 6.4-8.2 Serum or plasma albumin measurement (mass/volume) 4.0 g/dL 3.2-4.5 CALCIUM CORRECTED 9.6 mg/dL 8.5-10.1 Magnesium - 10/21/18 03:52 Magnesium 2.1 mg/dL 1.8-2.4 Serum or plasma creatine kinase measurement (enzymatic activity/volume) - 10/21 03:52 Serum or plasma creatine kinase measurement (enzymatic activity/volume) 59 U/L 30-200 Serum or plasma creatine kinase MB measurement (enzymatic activity/volume) - 03:52 Serum or plasma creatine kinase MB measurement (enzymatic activity/volume) 1.4 ng/mL <6.6 Serum or plasma troponin i.cardiac measurement (mass/volume) - 10/21/18 03:52 Serum or plasma troponin i.cardiac measurement (mass/volume) < ng/ mL <0.028 Myoglobin, serum - 10/21/18 03:52 Myoglobin, serum 64.0 ng/mL 10.0-92.0 PT panel in platelet poor plasma by coagulation assay - 10/21/18 03:52 Prothrombin time (PT) in platelet poor plasma by coagulation assay 12.7 s 12.2-14.7 INR in platelet poor plasma or blood by coagulation assay 1.0 0.8-1.4 Activated partial thromboplastin time (aPTT) in platelet poor plasma bycoagulation assay - 10/21/18 03:52 Activated partial thromboplastin time (aPTT) in platelet poor plasma bycoagulation assay 33 s 24-35 Complete urinalysis with reflex to culture - 10/21/18 04:30 Urine color determination YELLOW NRG Urine clarity determination CLEAR NRG Urine pH measurement by test strip 8 5-9 Specific gravity of urine by test strip 1.015 1.016- 1.022 Urine protein assay by test strip, semi-quantitative NEGATIVE NEGATIVE Urine glucose detection by automated test strip NEGATIVE NEGATIVE Erythrocytes detection in urine sediment by light microscopy 2+ NEGATIVE Urine ketones detection by automated test [...] automated white blood cell (WBC) differential - 10/22/18 05:13 Blood leukocytes automated count (number/volume) 6.4 10*3/uL 4.3-11.0 Blood erythrocytes automated count (number/volume) 3.90 10*6/uL 4.35-5.85 Venous blood hemoglobin measurement (mass/volume) 11.6 g/dL 13.3-17.7 Blood hematocrit (volume fraction) 35 % 40-54 Automated erythrocyte mean corpuscular volume 90 [foz_us] 80-99 Automated erythrocyte mean corpuscular hemoglobin (mass per erythrocyte) 30 pg 25-34 Automated erythrocyte mean corpuscular hemoglobin concentration measurement ( mass/volume) 33 g/dL 32-36 Automated erythrocyte distribution width ratio 12.2 % 10.0-14.5 Automated blood platelet count (count/volume) 285 10*3/uL 130-400 Automated blood platelet mean volume measurement 9.2 [foz_us] 7.4-10.4 Automated blood neutrophils/100 leukocytes 61 % 42-75 Automated blood lymphocytes/100 leukocytes 20 % 12-44 Blood monocytes/100 leukocytes 11 % 0-12 Automated blood eosinophils/100 leukocytes 7 % 0-10 Automated blood basophils/100 leukocytes 1 % 0-10 Blood neutrophils automated count (number/volume) 3.9 10*3 1.8-7.8 Blood lymphocytes automated count (number/volume) 1.3 10*3 1.0-4.0 Blood monocytes automated count (number/volume) 0.7 10*3 0.0-1.0 Automated eosinophil count 0.4 10*3/uL 0.0-0.3 Automated blood basophil count (count/volume) 0.0 10*3/uL 0.0-0.1 Comprehensive metabolic panel - 10/22/18 05:13 Serum or plasma sodium measurement (moles/volume) 142 mmol/L 135-145 Serum or plasma potassium measurement (moles/volume) 3.8 mmol/L 3.6-5.0 Serum or plasma chloride measurement (moles/volume) 109 mmol/L 98-107 Carbon dioxide 25 mmol/L 21-32 Serum or plasma anion gap determination (moles/volume) 8 mmol/L 5-14 Serum or plasma urea nitrogen measurement (mass/volume) 17 mg/dL 7-18 Serum or plasma creatinine measurement (mass/volume) 0.91 mg/dL 0.60-1.30 Serum or plasma urea nitrogen/creatinine mass ratio 19 NRG Serum or plasma creatinine measurement with calculation of estimated glomerular filtration rate > NRG Serum or plasma glucose measurement (mass/volume) 88 mg/dL 70-105 Serum or plasma calcium measurement (mass/volume) 9.0 mg/dL 8.5-10.1 Serum or plasma total bilirubin measurement (mass/volume) 0.9 mg/dL 0.1-1.0 Serum or plasma alkaline phosphatase measurement (enzymatic activity/volume) 100 U/L 40-136 Serum or plasma aspartate aminotransferase measurement (enzymatic activity/ volume) 15 U/L 5-34 Serum or plasma alanine aminotransferase measurement (enzymatic activity/volume ) < U/L 0-55 Serum or plasma protein measurement (mass/volume) 6.0 g/dL 6.4-8.2 Serum or plasma albumin measurement (mass/volume) 3.5 g/dL 3.2-4.5 CALCIUM CORRECTED 9.4 mg/dL 8.5-10.1 Encounters ACCT No. Visit Date/Time Discharge Status Pt. Type Provider Facility Loc./Unit Complaint [id number] 09/20/2014 00:00:00 09/20/2014 23:59:59 CLS Outpatient DONAVAN ALANIZ DDS [id number] 10/20/2018 10:55:00 10/20/2018 00:01:00 DIS Outpatient DELJESSICA [facility] ONC [id number] 08/21/2018 13:53:00 08/21/2018 23:59:59 CLS Outpatient AKASH GONZALES MD [facility] LAB HEMATURIA [id number] 08/06/2018 12:16:00 08/06/2018 23:59:59 CLS Outpatient AKASH GONZALES MD [facility] RAD DIZZINESS,NAUSEA, PROSTATE CA W/ LUNG METASIS [id number] 07/03/2018 13:38:00 07/13/2018 00:01:00 DIS Outpatient AMOL PIERSON MD [facility] ONC [id number] 07/08/2018 12:04:00 07/08/2018 23:59:59 CLS Outpatient AMOL PIERSON MD [facility] CARD C61 PROSTATE CA [id number] 06/26/2018 10:59:00 07/02/2018 15:58:00 DIS Outpatient DELJESSICA Paulino [facility] ONC [id number] 06/30/2018 10:09:00 06/30/2018 23:59:59 CLS Outpatient LIAM SANTANA, BALDO Sigala [facility] RAD M54.2 [id number] 03/20/2018 13:06:00 06/11/2018 00:01:00 DIS Outpatient DELJESSICA GALARZA [facility] ONC [id number] 12/26/2017 13:08:00 02/19/2018 00:01:00 DIS Outpatient JESSICA MATHIS [facility] ONC [id number] 08/08/2017 10:37:00 10/30/2017 00:01:00 DIS Outpatient JESSICA MATHIS [facility] ONC [id number] 04/18/2017 13:09:00 07/10/2017 00:01:00 DIS Outpatient DEL, JESSICA Paulino [facility] ONC [id number] 04/04/2017 13:24:00 04/04/2017 15:24:00 DIS Emergency BJ JOYCE, HALIE Jensen [facility] ER DIZZY SPELLS [id number] 12/20/2016 13:02:00 03/13/2017 00:01:00 DIS Outpatient JESSICA MATHIS N [facility] ONC [id number] 08/30/2016 09:37:00 11/21/2016 00:01:00 DIS Outpatient DELJESSICA GALARZA [facility] ONC [id number] 05/11/2016 10:03:00 07/23/2016 14:53:00 DIS Outpatient JESSICA MATHIS [facility] ONC [id number] 05/11/2016 10:00:00 05/11/2016 23:59:59 CLS Outpatient CHERRI PENG [facility] ONC [id number] 03/23/2016 07:06:00 03/23/2016 09:05:00 DIS Outpatient AKASH GONZALES MD [facility] FOLLOW UP PROSTATE CANCER [id number] 03/22/2016 06:09:00 03/22/2016 08:56:00 DIS Outpatient AKASH GONZALES MD [facility] PREOP FOLLOW UP PROSTATE CANCER [id number] 02/16/2016 09:50:00 02/22/2016 00:01:00 DIS Outpatient JESSICA MATHIS [facility] ONC [id number] 02/10/2016 10:24:00 02/10/2016 23:59:59 CLS Outpatient JESSICA MATHIS [facility] CARD PROSTATE CA [id number] 11/17/2015 10:57:00 11/23/2015 00:01:00 DIS Outpatient JESSICA MATHIS [facility] ONC [id number] 09/01/2015 13:06:00 09/01/2015 23:59:59 CLS Outpatient CHERRI PENG [facility] ONC [id number] 06/09/2015 13:10:00 07/13/2015 00:01:00 DIS Outpatient JESSICA MATHIS [facility] ONC [id number] 05/31/2015 08:36:00 05/31/2015 11:45:00 DIS [facility] [id number] 05/27/2015 05:44:00 05/27/2015 23:59:59 CLS Outpatient AKASH GONZALES MD [facility] PREOP DYSPHAGIA [id number] 03/17/2015 10:04:00 03/23/2015 00:01:00 DIS Outpatient JESSICA MATHIS [facility] ONC [id number] 03/17/2015 10:10:00 03/17/2015 23:59:59 CLS Outpatient CHERRI PENG [facility] ONC [id number] 03/10/2015 08:07:00 03/10/2015 23:59:59 CLS Outpatient JESSICA MATHIS [facility] CARD 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 [id number] 03/10/2015 08:03:00 03/10/2015 23:59:59 CLS Outpatient JESSICA MATHIS [facility] RAD OSTEOPOROSIS BY MEDICATIONS [id number] 09/30/2014 13:56:00 11/21/2014 00:01:00 DIS Outpatient JESSICA MATHIS [facility] ONC [id number] 11/11/2014 10:21:00 11/11/2014 12:28:00 DIS Emergency HALIE LORENZO MD [facility] ER LEFT LEG INJURY [id number] 09/30/2014 02:45:00 09/30/2014 23:59:59 CLS Outpatient CHERRI PENG [facility] ONC [id number] 08/30/2014 10:42:00 08/30/2014 23:59:59 CLS Outpatient JESSICA MATHIS [facility] CARD COLON CA [id number] 08/16/2014 12:53:00 08/16/2014 17:03:00 DIS Emergency AGNES CALHOUN MD [facility] ER URINARY TROUBLE [id number] 08/10/2014 07:47:00 08/10/2014 23:59:59 CLS Outpatient AKASH GONZALES MD [facility] SDC RECTAL MASS [id number] 08/06/2014 07:08:00 08/06/2014 23:59:59 CLS Outpatient AKASH GONZALES MD [facility] PREOP RECTAL MASS [id number] 10/21/2018 05:45:00 ACT Inpatient HALIE LORENZO MD [facility] 4TH INTRACTABLE VERTIGO;S/P FALL; HEAD INJURY W/ O [id number] 10/21/2018 00:13:00 PEN Preadmit JESSICA MATHIS [facility] ONC [id number] 12/23/2012 06:53:00 Document Registration [id number] 12/19/2012 08:09:00 Document Registration [id number] 08/15/2012 10:54:00 Document Registration [id number] 06/13/2011 09:33:00 Document Registration
--- NOTE | 2018-10-23 10:57 | History & Physical ---
History of Present Illness History of Present Illness Reason for visit/HPI CC: Dizziness HPI: Pt admitted to rehab after being admitted to the hospital for dizziness and fall and could not ambulate. Pt has history of increased size of RUL pulmonary nodule and metastatic prostate cancer, and spinal stenosis. Pt had left sided weakness while in the hospital and was determined to be a good candidate for PT. While in the hospital, pt was unable to void and a Santos had to be placed. Urology has been consulted for possible cystoscopy for the urinary retention transferred later today. Patient arrived in the room family at the bedside and very interested in ordering his lunch which I try to minimize my interference in order for him to complete that task Denies any significant pain although he did take pain pills left over from his tooth surgery and he did take almost all of those prior to coming to the hospital When asked about his bowels he said that he usually goes on his regular routine so we will monitor that closely due to narcotic use for pain Reviewed all of his home medications and restarted Overall patient at high risk for falls of physical therapy will focus on minimizing falls and maintaining safety at home along with involvement with his family. Date of Admission Oct 23, 2018 at 10:05 Date Seen by a Provider: Oct 23, 2018 Time Seen by a Provider: 12:00 I consulted on this patient on 10/23/18 10:57 Attending Physician Amy Cohen DO Admitting Physician Jesse Guzman MD Consult Allergies and Home Medications Allergies Coded Allergies: No Known Drug Allergies (Unverified , 12/23/12) Home Medications Aspirin 81 Mg Tablet.dr, 81 MG PO DAILY, (Reported) Cholecalciferol (Vitamin D3) 2,000 Unit Tablet, 2,000 UNIT PO DAILY, (Reported) Enzalutamide 40 Mg Capsule, 160 MG PO DAILY, (Reported) TAKES 4 (40MG) CAPSULES Gabapentin 300 Mg Capsule, 300 MG PO 1930, (Reported) Patient Home Medication List Home Medication List Reviewed: Yes Past Wiyshlp-Ifqjff-Vrcoot Hx Past Med/Social Hx: Reviewed Nursing Past Med/Soc Hx, Reviewed and Corrections made Patient Social History Marrital Status: single Employed/Student: retired Alcohol Beverage of Choice: Beer Smoking Status: Unknown if Ever Smoked 2nd Hand Smoke Exposure: No Immunizations Up To Date Date of Pneumonia Vaccine: May 30, 2012 Date of Influenza Vaccine: Aug 27, 2018 Seasonal Allergies Seasonal Allergies: No Past Medical History Genitourinary: Prostate Problems Cancer: Prostate Did You Recieve Any Treatments: Yes What Type of Treatment Did You: Radiation History of Blood Disorders: No Adverse Reaction to Blood Shah: No Family History Urinary tract infection 18 FATHER Review of Systems Constitutional: see HPI, weakness EENTM: no symptoms reported Respiratory: no symptoms reported Cardiovascular: no symptoms reported Gastrointestinal: constipation Genitourinary: other (retention) Musculoskeletal: back pain, joint pain Skin: no symptoms reported Psychiatric/Neurological: Anxiety, Depressed All Other Systems Reviewed Negative Unless Noted: Yes Physical Exam Vital Signs Vital Signs - First Documented 10/23/18 10:05 Temp 96.1 Pulse 91 Resp 20 B/P (MAP) 163/83 (109) Pulse Ox 98 O2 Delivery Room Air Capillary Refill : Height, Weight, BMI Height: 5'7.00" Weight: 164lbs. 0.0oz. 74.303656ho; 25.7 BMI Method:Stated General Appearance: No Apparent Distress, WD/WN, Chronically ill Eyes: Bilateral Eye Normal Inspection, Bilateral Eye PERRL, Bilateral Eye EOMI HEENT: PERRL/EOMI, Normal ENT Inspection, Pharynx Normal Neck: Full Range of Motion, Normal Inspection, Non Tender, Supple, Carotid Bruit Respiratory: Chest Non Tender, Lungs Clear, Normal Breath Sounds, No Accessory Muscle Use, No Respiratory Distress Cardiovascular: Regular Rate, Rhythm, No Edema, No Gallop, No JVD, No Murmur, Normal Peripheral Pulses Gastrointestinal: Normal Bowel Sounds, No Organomegaly, No Pulsatile Mass, Non Tender, Soft, Other (santos catheter in place) Back: Normal Inspection, No CVA Tenderness, No Vertebral Tenderness Extremity: Normal Capillary Refill, Normal Inspection, Normal Range of Motion, Non Tender, No Calf Tenderness, No Pedal Edema Neurologic/Psychiatric: Alert, Oriented x3, No Motor/Sensory Deficits, Normal Mood/Affect Skin: Normal Color, Warm/Dry Lymphatic: No Adenopathy Assessment/Plan Assessment and Plan Assessment: Fall with subsequent severe back pain and leg pain Prostate cancer with metastases Immobile due to pain Urinary retention requiring Santos catheter placement and urology consultation Constipation Plan: Appreciate urology management Proceed on with therapies Bladder training once catheter is discontinued Safety is paramount at home if continues to live independently Problems: (1) Debility Status: Acute (2) Urinary retention Status: Acute (3) Santos catheter in place Status: Acute (4) Constipation Status: Acute (5) Advanced age Status: Chronic (6) Prostate cancer Status: Chronic Admission Diagnosis Admission Status: Inpatient Order (span 2 midnights) Reason for Inpatient Admission: Falls with rehab treatments will require 7 days of inpt Problem Qualifiers (1) Constipation: Constipation type: drug induced constipation Qualified Codes: K59.03 - Drug induced constipation AMY COHEN DO Oct 23, 2018 10:57 SUNI FOX MEDICAL STUDENT Oct 23, 2018 11:38
--- NOTE | 2018-10-23 10:58 | Physical Therapy Evaluation ---
PT Evaluation-General Medical Diagnosis Admission Date Oct 23, 2018 at 10:05 Medical Diagnosis: intractable vertigo Onset Date: Oct 21, 2018 Therapy Diagnosis Therapy Diagnosis: debility Height/Weight Height (Feet): 5 Height (Inches): 7.00 Weight (Pounds): 164 Weight (Ounces): 0.0 Precautions Precautions/Isolations: Fall Prevention, Standard Precautions Referral Physician: Phuc Reason for Referral: Evaluation/Treatment Medical History Pertinent Medical History: Prostate CA Additional Medical History prostate cancer Current History transfer from [address] [place] [id number] to [facility] secondary to continued c/o dizziness with improvement Reviewed History: Yes Social History Home: Single Level Current Living Status: Spouse Entry Into Home: Stairs With Railing PT Steps Into Home: 5 PT Steps Inside Home: 3 Prior/Core FIM Prior Level of Function Therapy Code Descriptions/Definitions Functional [place] Measure: 0=Not Assessed/NA 4=Minimal Assistance 1=Total Assistance 5=Supervision or Setup 2=Maximal Assistance 6=Modified [place] 3=Moderate Assistance 7=Complete [place] Therapy Quality Codes: 6 Independent with activity with or without an assistive device 5 Patient requires set up or clean up by helper. Patient completes activity by themselves 4 Supervision or touching assist (CGA). [place] provide cues , steadying assist 3 The helper provides less than half the effort to complete the activity 2 The helper provides more than half the effort to complete the activity 1 Dependent. The helper does all the effort to complete an activity 7 Patient refused to complete or attempt activity 9 The patient did not perform the activity before the current illness or injury 88 Not attempted due to Medical conditions or safety concerns Functional Abilities and Goals: Independent: Patient completed the activities by him/herself, with or without an assistive device, with no assistance from a helper. Needed Some Help: Patient needed partial assistance from another person to complete activities. Dependent: A helper completed the activities for the patient. Unknown: Not Applicable: Bed Mobility: 7 Transfers (B,C,W/C) (FIM): 7 Gait: 7 Stairs: 6 Indoor Mobility (Ambulation): Independent Stairs: Independent Prior Devices Use: None PT Evaluation-Current Subjective Patient reports he is improving with decrease c/o dizziness. He reports this is how these "episodes" work. Pain Numeric Pain Scale: 0-No Pain Location: No Pain Reported Objective Patient Orientation: Normal For Age Problem Solving: Fair Attachments: Baltazar Catheter ROM/Strength ROM Lower Extremities bilateral LE WFL Strenght Lower Extremities 4+/5 grossly bilaterally Integumentary/Posture Integumentary refer to nursing notes Bladder Incontinence: Baltazar Cath Posture WFL/slight left deviation Neuromuscular (Tone, Coordination, Reflexes) grossly intact with all testing Sensory Vision: Functional Hearing: Functional Sensation Right Lower Extremit: Impaired Sensation Left Lower Extremity: Impaired Transfers Therapy Code Descriptions/Definitions Functional [place] Measure: 0=Not Assessed/NA 4=Minimal Assistance 1=Total Assistance 5=Supervision or Setup 2=Maximal Assistance 6=Modified [place] 3=Moderate Assistance 7=Complete [place] Therapy Quality Codes: 6 Independent with activity with or without an assistive device 5 Patient requires set up or clean up by helper. Patient completes activity by themselves 4 Supervision or touching assist (CGA). [place] provide cues , steadying assist 3 The helper provides less than half the effort to complete the activity 2 The helper provides more than half the effort to complete the activity 1 Dependent. The helper does all the effort to complete an activity 7 Patient refused to complete or attempt activity 9 The patient did not perform the activity before the current illness or injury 88 Not attempted due to Medical conditions or safety concerns Transfers (B, C, W/C) (FIM): 4 Scootin Rollin Roll Left to Right (QC): 5 Supine to/from Sit: 5 Sit to/from Stand: 4 Sit to Lying (QC): 5 Lying to Sitting/Side of Bed(Q: 5 Sit to Stand (QC): 4 Chair/Qnu-yt-Reatq Xfer(QC): 5 Car Transfer (QC): 5 Patient is very impulsive and unaware of safety concerns Gait Does the Patient Walk?: Yes Mode of Locomotion: Walk Anticipated Mode of Locomotion: Walk Gait (FIM): 4 Distance (FIM): 3=150 ft Walk 10 feet (QC): 4 Walk 50 ft with 2 Turns(QC): 4 Walk 150 ft (QC): 4 Walking 10ft/uneven surface-QC: 4 Distance: 300' x 2/ 150' x 2 Gait Level of Assist: 4 Gait Persons Needed: 1 Gait Assistive Device: FWW Comments/Gait Description CGA to SBA for safety with skilled verbal instruction for body placement in FWW Stairs Stairs (FIM): 4 #of Steps: 8 Level of Assist: 4 1 Step (curb) (QC): 4 4 Steps (QC): 4 12 Steps (QC): 88 (due to patient displays severe retropulsion with ascending and descending steps) Balance Sitting Static: Normal Sitting Dynamic: Normal Standing Static: Fair Standing Dynamic: Fair Picking up an Object (QC): 6 Assessment/Needs 82 y.o. male, will benefit from skilled PT to address balance, functional mobility and strength to ensure safe return to home with spouse. Patient is limited by decreased safety awareness and balance deficit. Rehab Potential: Fair PT Measurement Department Chief Clerk Goals Measurement Department Chief Clerk Goals PT Fpc Goals Time Frame: Nov 15, 2018 Transfers (B,C,W/C) (FIM): 6 Sit to Lying (QC): 6 Lying-Sitting on Side/Bed(QC): 6 Sit to Stand (QC): 6 Rollin Roll Left to Right (QC): 6 Chair/Vvu-oz-Wabyc Xfer(QC): 6 Car Transfer (QC): 6 Does the Patient Walk: Yes Gait (FIM): 6 Gait distance (FIM): 3=150 ft Distance: >300' Walk 10 feet (QC): 6 Walk 10ft-Uneven Surface(QC): 6 Walk 50ft with 2 Turns (QC): 6 Walk 150 ft (QC): 6 Gait Level of Assist: 6 Gait Assistive Device: None, FWW, Cane Single Point Stairs (FIM): 6 # of Steps: 12 1 Step (curb) (QC): 6 4 Steps (QC): 6 12 Steps (QC): 6 Stairs Level Of Assist: 6 Picking up an Object (QC): 6 PT Plan Problem List Problem List: Safety, Balance, Gait Treatment/Plan Treatment Plan: Continue Plan of Care Treatment Plan: Bed Mobility, Education, Functional Activity [place], Functional Strength, Group Therapy, Gait, Safety, Therapeutic Exercise, Transfers Treatment Duration: Nov 15, 2018 Frequency: At least 5 of 7 days/Wk (IRF) Estimated Hrs Per Day: 1.5 hours per day Patient and/or Family Agrees t: Yes Safety Risks/Education Patient Education: Safety Issues Teaching Recipient: Patient, Significant Other Teaching Methods: Demonstration, Discussion Response to Teaching: Verbalize Understanding, Return Demonstration Discharge Recommendations Therapy D/C Recommendations: Home w/ Family Support Time/GCodes Time In: 955 Time Out: 1045 Total Billed Treatment Time: 50 Total Billed Treatment 1 visit EVModC 30 min FA 20 min JYOTSNA BENNETT PT Oct 23, 2018 10:58
[2018-10-23] MEDS ORDERED: CALCIUM CARBONATE 500 MG (TUMS) TAB.CHEW PO PRN (11:00)
[2018-10-23] MEDS ORDERED: ONDANSETRON 4 MG (ZOFRAN) ORAL DISSOLVE TAB PO PRN (11:00)
[2018-10-23] MEDS ORDERED: ALPRAZolam 0.25 MG (XANAX) TAB PO PRN (11:00)
[2018-10-23] MEDS ORDERED: ACETAMINOPHEN 500 MG TAB (TYLENOL) PO PRN (11:00)
[2018-10-23] MEDS ORDERED: DOCUSATE SODIUM 100 MG (COLACE) CAP PO PRN (11:00)
[2018-10-23] MEDS ORDERED: POLYETHYLENE GLYCOL 17 GM (MIRALAX) PACK PO PRN (11:00)
[2018-10-23] MEDS ORDERED: HYDROcodone/APAP 5 MG/325 MG (LORTAB) TAB PO PRN (11:00)
[2018-10-23] MEDS ORDERED: LACTULOSE SYRUP 10GM/15ML (ENULOSE) 30ML UDC PO PRN (11:00)
[2018-10-23] MEDS ORDERED: diphenhydrAMINE 25 MG TAB (BENADRYL) PO PRN (11:00)
--- NOTE | 2018-10-23 11:15 | NUR ---
Pastoral Care Visit.
--- NOTE | 2018-10-23 12:43 | Occupational Therapy Eval ---
OT Evaluation-General/PLF Medical Diagnosis Admission Date Oct 23, 2018 at 10:05 Medical Diagnosis: intractable vertigo Onset Date: Oct 21, 2018 Therapy Diagnosis Therapy Diagnosis: Weakness Height/Weight Height (Feet): 5 Height (Inches): 7.00 Weight (Pounds): 164 Weight (Ounces): 0.0 Precautions Precautions/Isolations: Fall Prevention, Standard Precautions Weight Bear Status Weight Bearing Restriction: Weight Bearing/Tolerated Referral Physician: Phuc Referral Reason: Activity Tolerance, Self Care, Evaluation/Treatment, Strengthening/ROM Medical History Pertinent Medical History: Prostate CA Additional Medical History Dizziness with falls, orthostatic hypotension Current History Pt. began to fall at home. Reviewed History: Yes Social History Home: Single Level Current Living Status: Spouse Entry Into Home: Stairs With Railing Steps Into Home: 5 Steps Inside Home: 3 ADL-Prior Level of Function Therapy Code Descriptions/Definitions Functional [place] Measure: 0=Not Assessed/NA 4=Minimal Assistance 1=Total Assistance 5=Supervision or Setup 2=Maximal Assistance 6=Modified [place] 3=Moderate Assistance 7=Complete [place] Therapy Quality Codes: 6 Independent with activity with or without an assistive device 5 Patient requires set up or clean up by helper. Patient completes activity by themselves 4 Supervision or touching assist (CGA). [place] provide cues , steadying assist 3 The helper provides less than half the effort to complete the activity 2 The helper provides more than half the effort to complete the activity 1 Dependent. The helper does all the effort to complete an activity 7 Patient refused to complete or attempt activity 9 The patient did not perform the activity before the current illness or injury 88 Not attempted due to Medical conditions or safety concerns Functional Abilities and Goals: Independent: Patient completed the activities by him/herself, with or without an assistive device, with no assistance from a helper. Needed Some Help: Patient needed partial assistance from another person to complete activities. Dependent: A helper completed the activities for the patient. Unknown: Not Applicable: ADL PLOF Comments Pt. states that he was independent with tasks prior to this hospitalization, although his daughter bought him a walker more recently due to dizziness. Self Care: Independent Functional Cognition: Unknown DME/Equipment: Tub/Shower DME/Equipment Comments Pt. has a new walker. Drive Self: Yes OT Current Status Subjective Pt. does not report pain. Appearance Spouse in room. Pt. is agreeable to take a shower. Mental Status/Objective Patient Orientation: Unable to Assess Pt. is impulsive and requires cues for safety. Attachments: IV Current Hand Dominance: Right Upper Extremity ROM WFL Upper Extremity Coordination WFL Upper Extremity Strength WFL ADL-Treatment Grooming (FIM): 4 (CGA in stance at walker as pt. will reach for items and leave his walker behind.) Bathing (FIM): 4 (CGA in stance and constant cues for safety. 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 Pt. has difficulty with buttoning buttons on the front, and then requires assist to button arm buttons.) Upper Body Dressing (QC): 4 Lower Body Dressing (FIM): 4 (CGA in stance to pull them over hips. Min assist to keep foot up while donning sock.) Lower Body Dressing (QC): 4 On/Off Footwear (QC): 4 Transfers (B, C, W/C) (FIM): 4 Shower Transfer (FIM): 4 Other Treatments Pt. does require cues for safety in stance. Pt. is impulsive and will often attempt to walk without walker and without being aware of his catheter. Education OT Patient Education: Correct positioning, Modified ADL techniques, Progress toward Goal/Update tx plan, Purpose of tx/functional activities, Reviewed precautions, Rehab process, Transfer techniques Teaching Recipient: Patient Teaching Methods: Demonstration, Discussion Response to Teaching: Verbalize Understanding, Return Demonstration OT Short Term Goals Short Term Goals 1=Demonstrate adherence to instructed precautions during ADL tasks. 2=Patient will verbalize/demonstrate understanding of assistive devices/ modifications for ADL. 3=Patient will improve strength/tolerance for activity to enable patient to perform ADL's. OT Acute Care Physical Therapist Goals Acute Care Physical Therapist Goals Time Frame: Nov 06, 2018 Eating (FIM): 6 Eating (QC): 6 Groomin Oral Hygiene (QC): 6 Bathing(FIM): 5 Shower/Bathe Self (QC): 5 Upper Body Dressing(FIM): 6 Upper Body Dressing (QC): 6 Lower Body Dressing(FIM): 6 Lower Body Dressing (QC): 6 On/Off Footwear (QC): 6 Toileting(FIM): 6 Toileting Hygiene (QC): 6 Transfers (B,C,W/C) (FIM): 6 Toilet/Commode Transfer(FIM): 6 Toilet/Commode Transfer (QC): 6 Shower Transfer(FIM): 5 Additional Goals: 1-Demonstrate ADL Tasks, 2-Verbalize Understanding, 3- ImproveStrength/[place] 1=Demonstrate adherence to instructed precautions during ADL tasks. 2=Patient will verbalize/demonstrate understanding of assistive devices/ modifications for ADL. 3=Patient will improve strength/tolerance for activity to enable patient to perform ADL's. OT Education/Plan Problem List/Assessment Assessment: Decreased Activ Tolerance, Decreased Safety Aware, Impaired Cognition, Impaired Funct Balance, Impaired I ADL's, Impaired Self-Care Skills Discharge Recommendations Plan/Recommendations: Continue POC Therapy D/C Recommendations: Home w/ Family Support, Occupational Therapy Home Care Equpiment Recommendations-D/C: Extended Bath Bench, Sock Aide Treatment Plan/Plan of Care Treatment,Training & Education: Yes Patient would benefit from OT for education, treatment and training to promote independence in ADL's, mobility, safety and/or upper extremity function for ADL' s. Plan of Care: ADL Retraining, Functional Mobility, Group Exercise/Act as Ind, UE Funct Exercise/Act Treatment Duration: Nov 06, 2018 Frequency: At least 5 of 7 days/Wk (IRF) Estimated Hrs Per Day: 1.5 hours per day Agreement: Yes Rehab Potential: Fair Time/GCodes Start Time: 11:10 Stop Time: 12:00 Total Time Billed (hr/min): 50 Billed Treatment Time 1, EVH x 15minutes, ADL x 35minutes MONICA OSBORN OT Oct 23, 2018 12:43
[2018-10-23] MEDS ORDERED: GABA-488 PO (13:06)
[2018-10-23] MEDS ORDERED: ASPI-983 PO (13:06)
--- NOTE | 2018-10-23 13:07 | NUR ---
REVIEWED MED REC IT WAS REPORTED UPON ADMISSION TO 4TH FLOOR. NOTE THE FOLLOWING CHANGES WERE MADE WHEN THE PATIENT DISCHARGED TO REHAB THAT ARE NOT CURRENTLY REFLECTED ON THE HOME MED REC. STOP TAKING: ASPIRIN 81MG DAILY GABAPENTIN 300MG DAILY @ 1930
--- NOTE | 2018-10-23 13:15 | NUR ---
Dr. Collins present at bedside to discuss current voiding status. All questions answered by patient and . Dr. Collins plans on completing a cysto. at bedside in the morning. Consent signed by patient.
--- NOTE | 2018-10-23 13:57 | Physical Therapy Daily Note ---
PT Daily Note-Current Subjective Patient continues to have reflux with vomiting. RN is aware and present. Pain Numeric Pain Scale: 0-No Pain Location: No Pain Reported Mental Status Patient Orientation: Normal For Age Attachments: Baltazar Catheter Transfers Therapy Code Descriptions/Definitions Functional [place] Measure: 0=Not Assessed/NA 4=Minimal Assistance 1=Total Assistance 5=Supervision or Setup 2=Maximal Assistance 6=Modified [place] 3=Moderate Assistance 7=Complete [place] Therapy Quality Codes: 6 Independent with activity with or without an assistive device 5 Patient requires set up or clean up by helper. Patient completes activity by themselves 4 Supervision or touching assist (CGA). [place] provide cues , steadying assist 3 The helper provides less than half the effort to complete the activity 2 The helper provides more than half the effort to complete the activity 1 Dependent. The helper does all the effort to complete an activity 7 Patient refused to complete or attempt activity 9 The patient did not perform the activity before the current illness or injury 88 Not attempted due to Medical conditions or safety concerns Transfers (B, C, W/C) (FIM): 4 Scootin Sit to/from Stand: 4 Sit to Stand (QC): 4 Gait Training Does the Patient Walk?: Yes Gait (FIM): 4 Distance (FIM): 3=150 ft Distance: 150' x 3 Walk 10 feet (QC): 4 Walk 50 ft with 2 Turns(QC): 4 Walk 150 ft (QC): 4 Gait Level of Assist: 4 Gait Persons Needed: 1 Gait Assistive Device: FWW steady, no deviation Stair Training Stair Training: Handrails/: 1 handrail Stairs (FIM): 4 #of Steps: 8 1 Step (curb) (QC): 4 4 Steps (QC): 4 Stairs: Pattern: Reciprocal Level of Assist: 4 multiple LOB with display of backward momentum ascending and forward momentum descending. Noted diminished proprioception/spacial awareness with step negotiation. Exercises Standing: Sit to Stand Standing Reps: 10 (2 sets with eyes closed and open) Assessment Patient requires recovery periods due to fatigue and continued reflux. PT to increase activity as tolerated by patient. PT Information Services Manager Goals Information Services Manager Goals PT Residential Goals Time Frame: Nov 15, 2018 Transfers (B,C,W/C) (FIM): 6 Sit to Lying (QC): 6 Lying-Sitting on Side/Bed(QC): 6 Sit to Stand (QC): 6 Rollin Roll Left to Right (QC): 6 Chair/[id number] Xfer(QC): 6 Car Transfer (QC): 6 Does the Patient Walk: Yes Gait (FIM): 6 Gait distance (FIM): 3=150 ft Distance: >300' Walk 10 feet (QC): 6 Walk 10ft-Uneven Surface(QC): 6 Walk 50ft with 2 Turns (QC): 6 Walk 150 ft (QC): 6 Gait Level of Assist: 6 Gait Assistive Device: None, FWW, Cane Single Point Stairs (FIM): 6 # of Steps: 12 1 Step (curb) (QC): 6 4 Steps (QC): 6 12 Steps (QC): 6 Stairs Level Of Assist: 6 Picking up an Object (QC): 6 PT Plan Treatment/Plan Treatment Plan: Continue Plan of Care Treatment Plan: Bed Mobility, Education, Functional Activity [place], Functional Strength, Group Therapy, Gait, Safety, Therapeutic Exercise, Transfers Treatment Duration: Nov 15, 2018 Frequency: At least 5 of 7 days/Wk (IRF) Estimated Hrs Per Day: 1.5 hours per day Patient and/or Family Agrees t: Yes Time/GCodes Time In: 1300 Time Out: 1345 Total Billed Treatment Time: 45 Total Billed Treatment 1 visit FA x 3 45 min JYOTSNA BENNETT PT Oct 23, 2018 13:57
--- NOTE | 2018-10-23 14:00 | NUR ---
Patients daughter requested nursing at bedside to assess patient. Patient was vomiting d/t possible eating food to quickly. Output was mostly thick mucous. Patient able to rebound quickly without issues. Vitals taken and BP slightly elevated. Lung sound clear to auscultation. Patient monitored at dinner and no issues noted with oral intake.
--- NOTE | 2018-10-23 14:25 | ST Cognitive Linguistic Eval ---
Speech Evaluation-General Medical Diagnosis intractable vertigo Onset Date: Oct 21, 2018 Therapy Diagnosis Therapy Diagnosis: Cognitive-communication Precautions Precautions/Isolations: Fall Prevention, Standard Precautions Medical History Pertinent Medical History: Prostate CA Reviewed History: Yes Social History Current Living Status: Spouse Speech PLF-Current Status Prior Level of Function Patient was independent with all daily tasks prior to the incident that brought him to the hospital. Subjective Patient was very pleasant and cooperative during the evaluation process. Language Eval: Auditory Comprehends Simple Yes/No Ques: Functional Indent/Objects Multiple Minor: Functional Ident/Pics in Multiple Minor: Mild Follows 1-Step Commands: Mild Follows Complex Directions: Moderate Follows General Conversations: Mild Language Eval: Verbal Language Completes Spontaneous Greeting: Functional Produces Auto, Serial Info: Functional Imitates Simple Words/Phrases: Functional Word Finding: Mild Objective Cognitive Domain Attention: Mild Memory: Moderate Problem Solving: Moderate, Mild Executive Functions: Mild Objective Formal/Standardized Tests [facility] Cognitive/Communication Results Memory: Immediate 3/3, Delayed Recall 2/3 with verbal cues Orientation: 3/4, Problem Solving: Simple 3/4, Complex 2/4, Sequencing 3/4 Oral Motor/Speech Production Within Functional Limits Impression Patient is a pleasant 82 year old male who was admitted to the ARU this date for strengthening and functional skills. Patient stated he knows he has trouble with short term memory but can remember things from a long time ago. Patient completed the evaluation process with noted deficits in memory, problem solving and sequencing. Patient required frequent redirection throughout the evaluation process. Communication/Social Cognition Comprehension: 4 Expression: 4 Social Interaction: 5 Problem Solvin Memory: 3 Speech Patient Assess Expression of Ideas/Wants: Exhibits (3) Understanding Verbal Content: Usually Understands (3) Brief Interview-Mental Status: Yes Repetition of Three Words: Three (3) Temporal Orientation: Year: Correct (3) Temporal Orientation: Month: Accurate within 5 days(2) Temporal Orientation: Day: Correct (1) Recall : Wear to say "Sock": Yes,after cueing (1) Recall : Color: Yes, after cueing (1) Recall : Bed: No, could not recall (0) Memory/Recall Ability: Current season, That he or she is in a hsp/hsp unit Speech Short Term Goals Short Term Goals Short Term Goals 1) Patient will complete memory tasks with 90% or greater. 2) Patient will complete problem solving tasks with 90% or greater. 3) Patient will complete sequencing tasks related to his daily living at 90% or greater. Speech Program Admin Goals Program Admin Goals Patient will improve short term memory, problem solving and sequencing tasks for personal safety and independence. Speech-Plan Patient/Family Goals Patient/Family Goals: Patient will return home with his post rehab. Treatment Plan Speech Therapy Treatment Plan: Continue Plan of Care Patient is recommended for skilled ST services to focus on his deficits for a safe return home. Treatment Duration: Oct 31, 2018 Frequency: 5 times per week Estimated Hrs Per Day: .5 hour per day Rehab Potential: Fair Barriers to Learning: Patient has deficits which interfere with his personal safety. Pt/Family Agrees to Plan: Yes Safety Risks/Education Teaching Recipient: Patient Teaching Methods: Discussion Response to Teaching: Verbalize Understanding Education Topics Provided: Safety within his room, utilization of the call light Time Speech Therapy Time In: 10:50 Speech Therapy Time Out: 11:05 Total Billed Time: 15 Billed Treatment Time 1, ALYSENDVY Abreu Oct 23, 2018 14:25
[2018-10-23] MEDS ORDERED: PATIENT MAY USE OWN MED,SINGLE MED PO SCH ×2 (14:45→15:00)
--- NOTE | 2018-10-23 14:45 | Occupational Ther Daily Note ---
OT Current Status-Daily Note Subjective Pt alert, sitting in recliner. Daughter present in room. Pt agrees to therapy. Pt is impulsive and slightly confused. Mental Status/Objective Patient Orientation: Person Therapy Code Descriptions/Definitions Functional [place] Measure: 0=Not Assessed/NA 4=Minimal Assistance 1=Total Assistance 5=Supervision or Setup 2=Maximal Assistance 6=Modified [place] 3=Moderate Assistance 7=Complete [place] Attachments: Baltazar Catheter ADL-Treatment Therapy Code Descriptions/Definitions Functional [place] Measure: 0=Not Assessed/NA 4=Minimal Assistance 1=Total Assistance 5=Supervision or Setup 2=Maximal Assistance 6=Modified [place] 3=Moderate Assistance 7=Complete [place] Therapy Quality Codes: 6 Independent with activity with or without an assistive device 5 Patient requires set up or clean up by helper. Patient completes activity by themselves 4 Supervision or touching assist (CGA). [place] provide cues , steadying assist 3 The helper provides less than half the effort to complete the activity 2 The helper provides more than half the effort to complete the activity 1 Dependent. The helper does all the effort to complete an activity 7 Patient refused to complete or attempt activity 9 The patient did not perform the activity before the current illness or injury 88 Not attempted due to Medical conditions or safety concerns Other Treatment Pt ambulated with FWW to therapy gym. UE strengthening and fine motor tasks completed for daily functional tasks. Arm bike 15 min at 20 medrano resistance completed without breaks to increase strength and activity tolerance. Medium resistance theraputty with beads completed to increase pinch and chamber walker strength and dexterity. Pt was able to complete these tasks with minimal verbal cues for understanding. Pt ambulated back to room using FWW with CGA. Pt able to doff shoes by self. Pt when from EOB to supine by self then needed assistance to raise HOB slightly. After therapy, pt lying in bed with call light/phone in reach. Daughter present in room. OT Short Term Goals Short Term Goals 1=Demonstrate adherence to instructed precautions during ADL tasks. 2=Patient will verbalize/demonstrate understanding of assistive devices/ modifications for ADL. 3=Patient will improve strength/tolerance for activity to enable patient to perform ADL's. OT Parking Analyst Goals [facility] Goals Time Frame: Nov 06, 2018 Eating (FIM): 6 Eating (QC): 6 Groomin Oral Hygiene (QC): 6 Bathing(FIM): 5 Shower/Bathe Self (QC): 5 Upper Body Dressing(FIM): 6 Upper Body Dressing (QC): 6 Lower Body Dressing(FIM): 6 Lower Body Dressing (QC): 6 On/Off Footwear (QC): 6 Toileting(FIM): 6 Toileting Hygiene (QC): 6 Transfers (B,C,W/C) (FIM): 6 Toilet/Commode Transfer(FIM): 6 Toilet/Commode Transfer (QC): 6 Shower Transfer(FIM): 5 Additional Goals: 1-Demonstrate ADL Tasks, 2-Verbalize Understanding, 3- ImproveStrength/[place] 1=Demonstrate adherence to instructed precautions during ADL tasks. 2=Patient will verbalize/demonstrate understanding of assistive devices/ modifications for ADL. 3=Patient will improve strength/tolerance for activity to enable patient to perform ADL's. OT Education/Plan Discharge Recommendations Plan/Recommendations: Continue POC Treatment Plan/Plan of Care Patient would benefit from OT for education, treatment and training to promote independence in ADL's, mobility, safety and/or upper extremity function for ADL' s. Plan of Care: ADL Retraining, Functional Mobility, Group Exercise/Act as Ind, UE Funct Exercise/Act Treatment Duration: Nov 06, 2018 Frequency: At least 5 of 7 days/Wk (IRF) Estimated Hrs Per Day: 1.5 hours per day Agreement: Yes Rehab Potential: Fair Time/GCodes Start Time: 14:00 Stop Time: 14:40 Total Time Billed (hr/min): 40 Billed Treatment Time 1 visit-EX 3 (40 min) ALESSIA JACOBSEN Oct 23, 2018 14:45
--- NOTE | 2018-10-23 15:55 | NUR ---
Notified Dr. Guzman of consult, states he will be in tomorrow around noon to see patient.
[2018-10-23 17:35] VITALS: BP 170/77
[2018-10-23] MEDS: GABAPENTIN 300 MG (NEURONTIN) CAP PO SCH (20:43)
[2018-10-23] MEDS: MELATONIN 3 MG TABLET PO PRN (20:43)
--- NOTE | 2018-10-24 05:30 | NUR ---
Pt found climbing over the bed side rail, one leg on the ground and another on the bed. This RN helped patient to the ground, pt able to get up from the ground to the bed with minimal assistance. Right elbow displays an approximally 1 cm skin laceration. Skin care provided, Mepilex dressing applied over the elbow laceration. Baltazar and IV intact.
[2018-10-24 06:00] VITALS: BP 131/79
--- NOTE | 2018-10-24 06:19 | CONSULTATION REPORT ---
DATE OF SERVICE: 10/23/2018 ATTENDING PHYSICIAN: Dr. Aguilar SUMMARY: An 82-year-old white man admitted to the rehab inhouse unit for rehabilitation. I had seen the patient in the office before that back in 2011. He had a history of cancer of the prostate treated by radiation, Dr. Arteaga. At that time, his rectal exam was hard on the right side and fixed diagnosing local recurrence at least of the cancer. Ultrasound and biopsies were positive. His PSA, however, at that time was 0.91 and his bone scan and CT scan were essentially negative. He was given different options of treatment and at that point, he wanted to observe and establish the office was 08/2012. Somehow, he saw Dr. Huerta and has been on Zoladex injection every 4 months IM and recently starting Xtandi. He had trouble urinating and a catheter was inserted, was to attempt to void that was unsuccessful, each 600 mL and the catheter was left indwelling. He also has bouts of gross hematuria and clots according to him and his . IMPRESSION: 1. Urinary retention. 2. Gross hematuria. 3. History of carcinoma of the prostate, advanced. PLAN: Cystoscopy at bedside tomorrow. fully explained to the patient and his . Job ID: [id number] DocumentID: [id number] Dictated Date: 10/23/2018 17:11:44 Customer Support Executive Date: 10/24/2018 06:18:56 Dictated By: WAYNE FLANNERY MD
--- NOTE | 2018-10-24 07:42 | NUR ---
Pt's daughter Marivel Cochran was notified about pt's near fall during this am. Marivel denies any questions or concerns. Tele-sitter has been ordered and placed in the room.
--- NOTE | 2018-10-24 07:44 | Occupational Ther Daily Note ---
OT Current Status-Daily Note Subjective Pt alert, sitting in recliner. Pt agrees to therapy. No c/o pain at this time. Mental Status/Objective Patient Orientation: Person, Place, Situation Therapy Code Descriptions/Definitions Functional [place] Measure: 0=Not Assessed/NA 4=Minimal Assistance 1=Total Assistance 5=Supervision or Setup 2=Maximal Assistance 6=Modified [place] 3=Moderate Assistance 7=Complete [place] Attachments: Baltazar Catheter ADL-Treatment Pt agrees to shower today. During therapy session nrsg and physician in room. Discussed what the typical daily routine is for ARU and what a pt can expect. After therapy, pt sitting in recliner with call light/phone in reach. All needs met in room. Therapy Code Descriptions/Definitions Functional [place] Measure: 0=Not Assessed/NA 4=Minimal Assistance 1=Total Assistance 5=Supervision or Setup 2=Maximal Assistance 6=Modified [place] 3=Moderate Assistance 7=Complete [place] Therapy Quality Codes: 6 Independent with activity with or without an assistive device 5 Patient requires set up or clean up by helper. Patient completes activity by themselves 4 Supervision or touching assist (CGA). [place] provide cues , steadying assist 3 The helper provides less than half the effort to complete the activity 2 The helper provides more than half the effort to complete the activity 1 Dependent. The helper does all the effort to complete an activity 7 Patient refused to complete or attempt activity 9 The patient did not perform the activity before the current illness or injury 88 Not attempted due to Medical conditions or safety concerns Grooming (FIM): 5 (Close SBA standing at sink with FWW. Pt had one balance break, assist to regain balance. Completed all grooming by self.) Oral Hygiene (QC): 4 Bathing (FIM): 5 (Close SBA using shower bench, grabbbar and hand held shower to complete bathing by self.) Bathing Location: L Arm, R Arm, L Upper Leg, R Upper Leg, L Lower Leg ( including foot), R Lower Leg (including foot), Chest, Abdomen, Buttocks, Perineal Area Shower/Bathe Self (QC): 4 Upper Body (FIM): 5 (After set up, pt able to complete by self.) Upper Body Dressing (QC): 5 Lower Body Dressing (FIM): 4 (Pt requires min A due to threading catheter thru pant leg then manipulating pants. Close SBA in standing to hike pants over hips. Pt donned R sock by self, assist for L sock.) Lower Body Dressing (QC): 3 On/Off Footwear (QC): 3 Toileting (FIM): 5 (Close SBA using FWW and grabbar.) Toileting Hygiene (QC): 4 Toilet/Commode Transfer (FIM): 4 (CGA for safety using FWW and grabbar.) Toilet Transfer (QC): 3 Shower Transfer(FIM): 4 (CGA using grabbar, FWW and shower bench.) OT Short Term Goals Short Term Goals 1=Demonstrate adherence to instructed precautions during ADL tasks. 2=Patient will verbalize/demonstrate understanding of assistive devices/ modifications for ADL. 3=Patient will improve strength/tolerance for activity to enable patient to perform ADL's. OT Assisted Goals Assisted Goals Time Frame: Nov 06, 2018 Eating (FIM): 6 Eating (QC): 6 Groomin Oral Hygiene (QC): 6 Bathing(FIM): 5 Shower/Bathe Self (QC): 5 Upper Body Dressing(FIM): 6 Upper Body Dressing (QC): 6 Lower Body Dressing(FIM): 6 Lower Body Dressing (QC): 6 On/Off Footwear (QC): 6 Toileting(FIM): 6 Toileting Hygiene (QC): 6 Transfers (B,C,W/C) (FIM): 6 Toilet/Commode Transfer(FIM): 6 Toilet/Commode Transfer (QC): 6 Shower Transfer(FIM): 5 Additional Goals: 1-Demonstrate ADL Tasks, 2-Verbalize Understanding, 3- ImproveStrength/[place] 1=Demonstrate adherence to instructed precautions during ADL tasks. 2=Patient will verbalize/demonstrate understanding of assistive devices/ modifications for ADL. 3=Patient will improve strength/tolerance for activity to enable patient to perform ADL's. OT Education/Plan Discharge Recommendations Plan/Recommendations: Continue POC Treatment Plan/Plan of Care Patient would benefit from OT for education, treatment and training to promote independence in ADL's, mobility, safety and/or upper extremity function for ADL' s. Plan of Care: ADL Retraining, Functional Mobility, Group Exercise/Act as Ind, UE Funct Exercise/Act Treatment Duration: Nov 06, 2018 Frequency: At least 5 of 7 days/Wk (IRF) Estimated Hrs Per Day: 1.5 hours per day Agreement: Yes Rehab Potential: Fair Time/GCodes Start Time: 06:55 Stop Time: 08:10 Total Time Billed (hr/min): 75 Billed Treatment Time 1 visit-ADL 5 (75 min) ALESSIA JACOBSEN Oct 24, 2018 07:44
--- NOTE | 2018-10-24 08:10 | NUR ---
Daughter in room, talking w pt re: concerns of cancer meds. Pt & dgtr state that Dr. Huerta is pt's oncologist.
[2018-10-24] MEDS: VITAMIN D3 1,000 UNITS (CHOLECALCIFEROL) TABLET PO SCH (08:19)
[2018-10-24] MEDS: ASPIRIN E.C. 81 MG (ECOTRIN) TAB PO SCH (08:19)
[2018-10-24] MEDS: ENZALUTAMIDE 40 MG PO SCH (08:22)
--- NOTE | 2018-10-24 08:24 | NUR ---
Dgtr, Marivel, states that she doesn't want pt to take Xanax. Dgtr states that she is very pleased that pt is so much better than he was, 99% better, the confusion has cleared up
[2018-10-24] MEDS ORDERED: LIDOCAINE UROJET 2% GEL 10 ML PKG ONE (08:37)
[2018-10-24] MEDS ORDERED: NON-FORMULARY MEDICATION 1 EA EA (Cholecalciferol (Vitamin D3) (Vitamin D3) 2,000 UNIT) PO SCH (09:00)
--- NOTE | 2018-10-24 09:11 | PM&R Post Admission Assessment ---
Post Admission Physician Asses Date seen by provider: Oct 24, 2018 Time seen by provider: 08:30 Admisison Dx: (1) Debility Status: Acute (2) Urinary retention Status: Acute (3) Baltazar catheter in place Status: Acute (4) Constipation Status: Acute (5) Advanced age Status: Chronic (6) Prostate cancer Status: Chronic (7) Confusion Status: Acute (8) Risk for falls Status: Acute (9) Dizziness Status: Acute (10) Prostate cancer metastatic to multiple sites Status: Acute The preadmission screen agrees with the post admission assessment that the patient is a good candidate for inpatient rehabilitation. The patient will have a comprehensive program of inpatient rehabilitation with a goal of maximizing level of functional independence prior to discharge home with [family]. The patient will have PT/OT ninety minutes per day, each discipline, five days a week for gait, strengthening, conditioning, balance, ADLs, any patient/family/caregiver training as necessary. Speech therapy to do cognitive assessment and treat as indicated. Rehabilitation nursing to assist with bowel, bladder, skin, wound care, medication administration, pain management. Director Of Religious Life to assist with discharge planning, community reentry. SCD's for DVT prophylaxis. He appears to be well motivated to participate in three hours of therapy a day. He should be able to tolerate three hours of therapy a day from a medical standpoint. He should benefit from the three hours of therapy a day. He has a reasonable discharge plan, reasonable discharge rehabilitation goals and a supportive family. He has various comorbidities that need to be closely monitored with medications and treatments adjusted on a daily basis as needed. These include: see above Barriers to discharge for this patient who had been independent prior to this are for him to be modified independent to supervision for ADLs and mobility skills prior to discharge home with [family], so as to lessen the burden of the caregivers. Risks for this patient include: 1. Fall 2. Fracture 3. DVT 4. Pulmonary embolism 5. Wound infection 6. Skin breakdown 7. Contractures 8. Poorly controlled pain 9. Urinary retention 10. UTI 11. Respiratory infection 12. Aspiration Estimated Length of Stay: [7]days Prognosis: Rehab prognosis appears good for goal of discharge home with [family ] modified independent to supervision for ADLs and mobility skills. Date Identified: Oct 23, 2018 Time Identified: 1200 Action Plan to Resolve CSMI: Gabapentin started yesterday Cystoscopy today by Dr Collins for urinary retention management Dizziness and falls could be related to [place] meds? Consulting Dr Huerta for confirmation General: Alert, Cooperative HEENT: Atraumatic, PERRLA Lungs: Clear to Auscultation, Normal Air Movement Abdomen: Normal Bowel Sounds, Soft Extremities: No Clubbing, No Cyanosis Skin: No Rashes, No Breakdown Neuro: Normal Speech, Normal Tone, Sensation Intact, Cranial Nerves 3-12 NL, Reflexes 2+, Other (global weakness, disequilibrium) Psych/Mental Status: Other (confusion at times) BRAYDEN COHEN DO Oct 24, 2018 09:10
--- NOTE | 2018-10-24 09:16 | Progress Note-Post Operative ---
Post-Operative Progess Note Surgeon (s)/Career And Transition Teacher (s) Surgeon WAYNE FLANNERY MD Career And Transition Teacher: NONE Pre-Operative Diagnosis URINE RTENTION AND GROSS HEMATURIA Post-Operative Diagnosis SAME Procedure & Operative Findings Date of Procedure 10/24/18 Procedure Performed/Findings CYSTOSCOPY Anesthesia Type LOCAL Estimated Blood Loss Estimated blood loss (mL): NONE Specimens/Packing Specimens Removed NONE Packing: NONE WAYNE FLANNERY MD Oct 24, 2018 09:16
--- NOTE | 2018-10-24 10:03 | Physical Therapy Daily Note ---
PT Daily Note-Current Subjective Pt. just had santos catheter removed and is trying to urinate. Agrees to Rx. Pain Location: No Pain Reported Mental Status Patient Orientation: Person, Place, Time, Situation Transfers Therapy Code Descriptions/Definitions Functional [place] Measure: 0=Not Assessed/NA 4=Minimal Assistance 1=Total Assistance 5=Supervision or Setup 2=Maximal Assistance 6=Modified [place] 3=Moderate Assistance 7=Complete [place] Therapy Quality Codes: 6 Independent with activity with or without an assistive device 5 Patient requires set up or clean up by helper. Patient completes activity by themselves 4 Supervision or touching assist (CGA). [place] provide cues , steadying assist 3 The helper provides less than half the effort to complete the activity 2 The helper provides more than half the effort to complete the activity 1 Dependent. The helper does all the effort to complete an activity 7 Patient refused to complete or attempt activity 9 The patient did not perform the activity before the current illness or injury 88 Not attempted due to Medical conditions or safety concerns Transfers (B, C, W/C) (FIM): 5 Scootin Rollin Supine to/from Sit: 6 Sit to/from Stand: 5 Bed to/from Chair: 5 pt. to quadruped with instruction only on rx mat and on cushion on floor. from all 4s pt. had difficulty coming to on knees standing but was able to maintain balance there after a bit. from floor pt. TRFd with SBA and instruction as he crawled to mat table and pushed himself up Gait Training Does the Patient Walk?: Yes Gait (FIM): 4 Distance (FIM): 3=150 ft (175x2) Gait Level of Assist: 4 Gait Persons Needed: 1 Gait Assistive Device: FWW needed directed to destination, no LOB , Exercises Supine Ex: Rolling, Scooting, Straight leg raise, Hip abd/add Supine Reps: 15 Seated Therapy Exercises: Sit to stand Seated Reps: 10 visual vestibular exercises for head fixed and eyes moving up down x 10 left right x10 , eyes fixed and head moving up down and left right x 10 with pt. c/o of feeling somewhat "sea sick". no LOB however. pt. had difficulty moving eyes and following finger left and right after a several reps NuStep Minutes: 12 NuStep Workload: 5 Neuromuscular see above Assessment Current Status: Good Progress PT Guide Goals Guide Goals PT Guide Goals Time Frame: Nov 15, 2018 Transfers (B,C,W/C) (FIM): 6 Sit to Lying (QC): 6 Lying-Sitting on Side/Bed(QC): 6 Sit to Stand (QC): 6 Rollin Roll Left to Right (QC): 6 Chair/Jpe-dh-Vcqqc Xfer(QC): 6 Car Transfer (QC): 6 Does the Patient Walk: Yes Gait (FIM): 6 Gait distance (FIM): 3=150 ft Distance: >300' Walk 10 feet (QC): 6 Walk 10ft-Uneven Surface(QC): 6 Walk 50ft with 2 Turns (QC): 6 Walk 150 ft (QC): 6 Gait Level of Assist: 6 Gait Assistive Device: None, FWW, Cane Single Point Stairs (FIM): 6 # of Steps: 12 1 Step (curb) (QC): 6 4 Steps (QC): 6 12 Steps (QC): 6 Stairs Level Of Assist: 6 Picking up an Object (QC): 6 PT Plan Treatment/Plan Treatment Plan: Continue Plan of Care Treatment Plan: Bed Mobility, Education, Functional Activity Melba, Functional Strength, Group Therapy, Gait, Safety, Therapeutic Exercise, Transfers Treatment Duration: Nov 15, 2018 Frequency: At least 5 of 7 days/Wk (IRF) Estimated Hrs Per Day: 1.5 hours per day Patient and/or Family Agrees t: Yes Safety Risks/Education Patient Education: Gait Training, Transfer Techniques, Correct Positioning, Disease Process, Safety Issues Teaching Recipient: Patient Teaching Methods: Demonstration, Discussion Response to Teaching: Verbalize Understanding, Return Demonstration, Reinforcement Needed Time/GCodes Time In: 900 Time Out: 1000 Total Billed Treatment Time: 60 Total Billed Treatment 1,NM25m,GT15m,EX20m G Codes Necessary: HANK Araiza ASSOCIATE PROFESSOR OF BIOSTATISTICS Oct 24, 2018 10:03
--- NOTE | 2018-10-24 11:08 | PM&R Progress Note ---
Subjective This was a face to face visit with the patient. Date Seen by Provider: Oct 24, 2018 Time Seen by Provider: 08:30 Subjective/Events-last exam Patient was seen in his room just about to eat lunch Had an aspiration-type episode earlier today and has had a history of EGD with dilatation so we'll consult Dr. Schmitt to address that and likely will require EGD with dilatation since speech therapy is recommending that Family is wondering if his cancer medications are causing the confusion and dizziness. He tried to crawl out of bed earlier this morning that alarm was on Spoke with daughter Marivel and the intent for him to return home with his at discharge He's been 62 years Cystoscopy was performed by Dr. Collins and discontinued catheter and will closely monitor urinary output and postvoid residual Valium is felt to have caused a lot of the confusion per daughter so Xanax that had been ordered when necessary will be discontinued Spoke to Dr. Cunningham who will see the patient Dr. Schmitt will perform EGD tomorrow with dilatation to facilitate speech therapy and recovery Date Identified: Oct 24, 2018 Time Identified: 08:30 Medication Intervention: Acute onset dysphagia with aspiration type episode will obtain EGD with dilatation by Dr. Schmitt tomorrow Review of Systems HEENT: Dysphasia Genitourinary: Retention Neurological: Confusion Objective Physician Exam Last Set of Vital Signs Vital Signs Date Time Temp Pulse Resp B/P (MAP) Pulse Ox O2 Delivery O2 Flow Rate FiO2 10/24/18 06:00 98.7 94 18 131/79 (96) 95 Room Air Capillary Refill : I&O Intake and Output 10/24/18 00:00 Intake Total 500 ml Output Total 450 ml Balance 50 ml Intake Oral 500 ml Output Urine Total 450 ml Daily Weight Change No General: Alert, Cooperative, Other (subtle poor recall) HEENT: Atraumatic, PERRLA Lungs: Clear to Auscultation, Normal Air Movement Abdomen: Normal Bowel Sounds, Soft Extremities: No Clubbing, No Cyanosis Skin: No Rashes, No Breakdown Neuro: Normal Speech, Normal Tone, Sensation Intact, Cranial Nerves 3-12 NL, Reflexes 2+, Other (global weakness, disequilibrium) Psych/Mental Status: Mood NL, Other (confusion at times) Current Funtional Status Assessment: Acute dysphagia with history of dilatation in the past will have EGD tomorrow with presumed dilatation by Dr. Schmitt Acute urinary retention with history of prostate cancer just had catheter discontinued and urology perform cystoscopy now in bladder training and postvoid residual checks Confusion could be medication related? Plan: EGD tomorrow Bladder training per urology Continue therapies Monitor for confusion Fall risk Appreciate Dr. Cunningham evaluation for cancer medication side effects per family request Assessment/Plan Assessment and Plan (1) Debility Status: Acute (2) Urinary retention Status: Acute (3) Baltazar catheter in place Status: Resolved (4) Constipation Qualifiers: Qualified Codes: K59.03 - Drug induced constipation Status: Acute (5) Advanced age Status: Chronic (6) Prostate cancer Status: Chronic (7) Confusion Status: Acute (8) Risk for falls Status: Acute (9) Dizziness Status: Acute (10) Prostate cancer metastatic to multiple sites Status: Acute (11) Dysphagia Qualifiers: Qualified Codes: R13.14 - Dysphagia, pharyngoesophageal phase Status: Acute (12) Esophageal stenosis Status: Acute Co-Morbidities that are continuing to impact the rehab process: (include details ) BRAYDEN COHEN DO Oct 24, 2018 11:08
--- NOTE | 2018-10-24 11:42 | NUR ---
Dr. Friend requested to change oncology consult to , as Dr. Huerta is unavailable at this time, & requested Speech to see re: choking/aspiration episode yesterday.
--- NOTE | 2018-10-24 11:49 | NUR ---
Pt states that he thinks that he ate too fast yesterday, that caused him to cough & choke, states, "I should have ate slower & drank more liquids."
--- NOTE | 2018-10-24 12:00 | Progress Note-Hospitalist ---
Subjective HPI/CC On Admission Date Seen by Provider: Oct 24, 2018 Time Seen by Provider: 07:30 Patient voices no complaints this morning no problems with Baltazar catheter which is draining non-turbid urine without evidence for gross hematuria. He denies night sweats chills fever and is had no lower extremity pain. He still has gait instability but there has been some improvement. Patient is highly motivated for discharge. He is scheduled for cystoscopy sometime later today. Objective Exam Vital Signs Vital Signs Date Time Temp Pulse Resp B/P (MAP) Pulse Ox O2 Delivery O2 Flow Rate FiO2 10/24/18 06:00 98.7 94 18 131/79 (96) 95 Room Air Capillary Refill : General Appearance: No Apparent Distress, WD/WN Respiratory: Chest Non Tender, Lungs Clear, Normal Breath Sounds, No Accessory Muscle Use, No Respiratory Distress Cardiovascular: Regular Rate, Rhythm, No Edema, No Gallop, No JVD, No Murmur, Normal Peripheral Pulses Gastrointestinal: Normal Bowel Sounds, No Organomegaly, No Pulsatile Mass, Non Tender, Soft Skin: Normal Color, Pallor Results/Procedures Lab Patient resulted labs reviewed. Assessment/Plan Assessment and Plan Assess & Plan/Chief Complaint 1. Gait instability likely due to acquired spinal stenosis no evidence for malignant involvement of the spinal cord or vertebrae 2. Urinary retention likely aggravated by direct extension from prostate cancer cystoscopy scheduled later today 3. 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 Clinical Quality Measures DVT/VTE Risk/Contraindication: Risk Factor Score Per Nursin RFS Level Per Nursing on Admit: 4+=Very High AKASH GONZALES MD Oct 24, 2018 12:00
--- NOTE | 2018-10-24 13:38 | Physical Therapy Daily Note ---
PT Daily Note-Current Subjective Agrees to Rx. present and states she feels pts. dizziness began at the onset of certain cancer fighting drugs ans she has since "read up on them and dizziness is a side affect of these drugs Pain Location: No Pain Reported Mental Status Patient Orientation: Person, Place, Time, Situation Transfers Therapy Code Descriptions/Definitions Functional [place] Measure: 0=Not Assessed/NA 4=Minimal Assistance 1=Total Assistance 5=Supervision or Setup 2=Maximal Assistance 6=Modified [place] 3=Moderate Assistance 7=Complete [place] Therapy Quality Codes: 6 Independent with activity with or without an assistive device 5 Patient requires set up or clean up by helper. Patient completes activity by themselves 4 Supervision or touching assist (CGA). [place] provide cues , steadying assist 3 The helper provides less than half the effort to complete the activity 2 The helper provides more than half the effort to complete the activity 1 Dependent. The helper does all the effort to complete an activity 7 Patient refused to complete or attempt activity 9 The patient did not perform the activity before the current illness or injury 88 Not attempted due to Medical conditions or safety concerns in out bed and chair SBA to CGA, sit to stand trials without use of hands was tested as per ROSS with pt. LOB retropulsively x 2. After instruction in weight shift forward etc pt. performed this with good control Gait Training Gait Assistive Device: FWW 200ft x 2 with challenges to glance up and away for signage etc, no LOB but some difficulty spotting some things, retro gait with FWW required much instruction to perform safely Exercises Supine Ex: Bridging, Rolling, Straight leg raise, Hip abd/add Supine Reps: 10 Standing: Hip Abduction, Heel/toe raises, Marching, Mini squats Standing Reps: 10 Neuromuscular balance challenges derived from ROSS: sit to stand without use of hands, 45 degree TRF chair to chair without hands, turning /twisting left and right without LOB. SLS with LOB, staggered stance with 1 LOB episode Assessment Current Status: Good Progress PT Retirement Goals Executive Pastry Chef Goals PT Executive Pastry Chef Goals Time Frame: Nov 15, 2018 Transfers (B,C,W/C) (FIM): 6 Sit to Lying (QC): 6 Lying-Sitting on Side/Bed(QC): 6 Sit to Stand (QC): 6 Rollin Roll Left to Right (QC): 6 Chair/Yne-kh-Mwsxk Xfer(QC): 6 Car Transfer (QC): 6 Does the Patient Walk: Yes Gait (FIM): 6 Gait distance (FIM): 3=150 ft Distance: >300' Walk 10 feet (QC): 6 Walk 10ft-Uneven Surface(QC): 6 Walk 50ft with 2 Turns (QC): 6 Walk 150 ft (QC): 6 Gait Level of Assist: 6 Gait Assistive Device: None, FWW, Cane Single Point Stairs (FIM): 6 # of Steps: 12 1 Step (curb) (QC): 6 4 Steps (QC): 6 12 Steps (QC): 6 Stairs Level Of Assist: 6 Picking up an Object (QC): 6 PT Plan Treatment/Plan Treatment Plan: Continue Plan of Care Treatment Plan: Bed Mobility, Education, Functional Activity [place], Functional Strength, Group Therapy, Gait, Safety, Therapeutic Exercise, Transfers Treatment Duration: Nov 15, 2018 Frequency: At least 5 of 7 days/Wk (IRF) Estimated Hrs Per Day: 1.5 hours per day Patient and/or Family Agrees t: Yes Safety Risks/Education Patient Education: Gait Training, Transfer Techniques, Correct Positioning, Disease Process, Safety Issues Teaching Recipient: Patient Teaching Methods: Demonstration, Discussion Response to Teaching: Verbalize Understanding, Return Demonstration, Reinforcement Needed Time/GCodes Time In: 1300 Time Out: 1330 Total Billed Treatment Time: 30 Total Billed Treatment 1,GT15m,NM15m G Codes Necessary: HANK Araiza ACADEMIC SUPPORT [employer]ENTER DIRECTOR Oct 24, 2018 13:38
--- NOTE | 2018-10-24 14:00 | NUR ---
Patient alert and orientated and currently resting comfortably in room. Patient had episode of confusion this morning and was found by nursing staff attempting to crawl over the bed rails, as a result a telesitter was placed in patients room. Patient has not experienced any issues of such today with this nursing staff member. A speech consult was placed per Dr. Friend order d/t aspiration like episode yesterday. Speech therapy saw patient and recommended patient have esophageal dilatation. Dr. Friend ordered Dr. Schmitt be consulted for evaluation/esophageal dilatation. Dr. Schmitt notified of consult. Patient is also experiencing urinary retention post cath removal this morning. Current PVR was high. Dr. Collins was notified, still awaiting a orders. This nurse will continue to asses patient.
--- NOTE | 2018-10-24 14:59 | Speech Therapy Daily Note ---
Speech Daily Progress Note Subjective Date Seen by Provider: Oct 24, 2018 Time Seen by Provider: 00:30 Patient demonstrated increased level of alert today. Objective Patient was able to complete memory tasks related to self and daily needs at 80 % with min to mod verbal cues. Assessment Assessment Current Status: Good Progress Treatment Plan Continue Plan of Care Communication Comprehension: 4 Expression: 4 Social Cognition Social Interaction: 5 Problem Solvin Memory: 3 Speech Short Term Goals Short Term Goals Short Term Goals 1) Patient will complete memory tasks with 90% or greater. 2) Patient will complete problem solving tasks with 90% or greater. 3) Patient will complete sequencing tasks related to his daily living at 90% or greater. Speech Long-Term Goals Long-Term Goals Patient will improve short term memory, problem solving and sequencing tasks for personal safety and independence. Speech-Plan Patient/Family Goals Patient/Family Goals: Patient plans to return home with is post rehab. Treatment Plan Speech Therapy Treatment Plan: Continue Plan of Care Patient is progressing as a result of skilled therapy. Treatment Duration: Oct 31, 2018 Frequency: 5 times per week Estimated Hrs Per Day: .5 hour per day Rehab Potential: Fair Barriers to Learning: Patient has taken some medications while a patient in the hospital which have caused some behaviors which weren't usual for him. Pt/Family Agrees to Plan: Yes Safety Risks/Education Teaching Recipient: Patient, Significant Other Teaching Methods: Discussion Response to Teaching: Verbalize Understanding Education Topics Provided: Safety and utilization of call light Time Speech Therapy Time In: 10:30 Speech Therapy Time Out: 11:00 Total Billed Time: 30 Billed Treatment Time 1AMARI [address] ST Oct 24, 2018 14:58
--- NOTE | 2018-10-24 15:04 | ST Dysphagia Evaluation ---
Speech Evaluation-General Medical Diagnosis intractable vertigo Onset Date: Oct 21, 2018 Therapy Diagnosis Therapy Diagnosis: Dysphagia Precautions Precautions: Aspiration Precautions/Isolations: Fall Prevention, Standard Precautions Medical History Pertinent Medical History: Prostate CA Reviewed History: Yes Social History Current Living Status: Spouse Speech PLF/Current-Dysphagia Prior Level of Function Patient ate a regular diet prior to hospitalization. Patient and his both report he has episodes of "filling up" after a swallow which results in either vomiting the food up or drinking a lot of liquids to push the food through. Subjective Patient was pleasant and able to complete the questions related to his difficulty with getting food down. Oral Motor Skills Dentition: Natural Current Food Consistancy: Regular, Thin Liquids Ability to Follow Directions: Good Patient stated he had one of his episodes of eating too quickly and the food only goes down so far. He cleared by drinking a lot of coffee to make the food go on down. Voice Voice Phonatory-Based Quality: Normal Voice Pitch: Normal Voice Loudness: Normal Face Facial Symmetry: Symmetrical Oral-Facial Assessment Oral-Facial Dentition: Normal Labial Seal Description: Normal Smile: Normal Puff Cheeks: Normal Lingual Protrusion: Normal Lingual ROM: Normal Lingual Strength: Normal Gag Reflex Response: Normal Pharynx Velopharyngeal Move.: Normal Volitional Dry Swallow: Yes Voluntary Cough: Yes Can Clear Throat Volitionally: Yes Productive Cough: No Productive Throat Clear: No Dysphagia Evaluation Consistencies Presented: Regular, Thin Liquid, Mechanical Soft Patient did not exhibit any overt s/s of aspiration or difficulty with bolus management. No difficulty noted with the pharyngeal stage. Dietary Recommendations: Regular Liquid Recommendations: Thin Patient should be considered for an Esophageal Dilation procedure. Swallowing Precautions: Alternate Liquids/Solids, Double Swallow, Decreased Bolus 1/2 Tsp, Decreased Rate of Oral Intake, Small Bites and Sips, Sitting Upright 90 Degrees, Sitting 90 Degrees 30 Post Intake Dysphagia Evaluation Summary Patient is a pleasant 82 year old man who was referred for a dysphagia evaluation due to episode of swallowing and "the food just wouldn't go down". Patient and both describe having these episodes while at home. He stated when he can't get the food to go down he either has to vomit it up or drink a lot of liquids to get it cleared out. Patient is on a regular diet with thin liquids which appears to be appropriate to continue. Patient stated when he had the incident it was on smashed sweet potatoes. I explained the esophageal dilation procedure and he voiced understanding and thought that might be a good idea. Barriers to Learning Patient has had some confusion secondary to some med changes while hospitalized. Speech Short Term Goals Short Term Goals Short Term Goals 1) Patient will complete memory tasks with 90% or greater. 2) Patient will complete problem solving tasks with 90% or greater. 3) Patient will complete sequencing tasks related to his daily living at 90% or greater. 4) Patient will utilize compensatory strategies as trained at 90% or greater. Speech Usp Goals Usp Goals Patient will improve short term memory, problem solving and sequencing tasks for personal safety and independence. Patient will safely consume the least restrictive diet without s/s of aspiration. Speech-Plan Patient/Family Goals Patient/Family Goals: Patient plans to return home with his post rehab. Treatment Plan Speech Therapy Treatment Plan: Continue Plan of Care Patient will begin dysphagia therapy as well with focus on compensatory strategy training. Treatment Duration: Oct 31, 2018 Frequency: 5 times per week Estimated Hrs Per Day: .5 hour per day Rehab Potential: Fair Barriers to Learning: Patient has exhibits some behavior changes secondary to meds given while hospitalized. Pt/Family Agrees to Plan: Yes Safety Risks/Education Teaching Recipient: Patient, Significant Other Teaching Methods: Discussion Response to Teaching: Verbalize Understanding Education Topics Provided: Safety of oral intake, esophageal dilation procedure Time Speech Therapy Time In: 13:30 Speech Therapy Time Out: 13:45 Total Billed Time: 15 Billed Treatment Time 1ISRAELVY Dugan Oct 24, 2018 15:04
--- NOTE | 2018-10-24 15:38 | NUR ---
Bladder Scan shows 389cc per PCT, pt is voiding 75-100cc at a time, q 30-60 minutes, pt reports burning initially, but, that it is easing up. Urine is clear lt yellow. at B/S. Call placed to Dr. Collins, left voicemail to return call. Addendum: 10/24/18 at 1541 by ADDY HELM RN to notify of bladder scan results
--- NOTE | 2018-10-24 16:14 | OPERATIVE REPORT ---
DATE OF SERVICE: 10/24/2018 PREOPERATIVE DIAGNOSES: 1. Urinary retention. 2. Gross hematuria. 3. CA of the prostate. POSTOPERATIVE DIAGNOSES: 1. Urinary retention. 2. Gross hematuria. 3. CA of the prostate. OPERATION PERFORMED: Cystoscopy. SURGEON: Ilir Flannery MD. ANESTHESIA: Local. COMPLICATIONS: None. DESCRIPTION OF PROCEDURE: With the patient supine in his bed, the catheter was removed. The genitalia were prepped and draped in the usual sterile fashion. Noted a semirigid implant flexible cystoscope was introduced under vision after instilling 2% lidocaine jelly in the urethra. The anterior urethra was normal. The prostate was resected. Bladder neck was opened. Bladder was inspected. There was no foreign body, bladder tumor or stones visualized. No real evidence of radiation cystitis. Ureteric orifices with clear efflux. Cystoscopy was confirmed in antegrade fashion and the cystoscope was removed. The patient tolerated the procedure and anesthesia well. He remained in his bed in stable condition. PLAN: Trial of voiding and manage accordingly whether retention or incontinence, which he has been having for the past several months. Job ID: [id number] DocumentID: [id number] Dictated Date: 10/24/2018 09:25:03 Court Orderly Date: 10/24/2018 16:14:06 Dictated By: ILIR FLANNERY MD
[2018-10-24] MEDS ORDERED: LIDOCAINE UROJET 2% GEL 10 ML PKG TOP ONE (16:15)
--- NOTE | 2018-10-24 16:30 | Consultation ---
History of Present Illness History of Present Illness Patient Consulted On(jayden/time) 10/24/18 16:22 Time Seen by Provider: 14:46 History of Present Illness Surgery asked to consult regarding dysphagia. HPI per IM: Pt admitted to rehab after being admitted to the hospital for dizziness and fall and could not ambulate. Pt has history of increased size of RUL pulmonary nodule and metastatic prostate cancer, and spinal stenosis. Pt had left sided weakness while in the hospital and was determined to be a good candidate for PT. While in the hospital, pt was unable to void and a Baltazar had to be placed. Urology has been consulted for possible cystoscopy for the urinary retention transferred later today. When I spoke to pt today he states that last night he didn't get all of the sweet potato down; "felt like it got stuck". This has been happening to him a few times over past 3 weeks. He states it has occurred if he eats to fast or doesn't drink enough water. He stated that when it happened this time he started "coughing stuff up". He was able to eat some soft food today. This is concerning in light of his medical history of metastatic prostate CA. He reports pain in midsternal area of chest, when this happens; rated as 4-5 out of 10 on a 1-10 scale. Allergies and Home Medications Allergies Coded Allergies: No Known Drug Allergies (Unverified , 12/23/12) Home Medications Aspirin 81 Mg Tablet.dr, 81 MG PO DAILY, (Reported) Cholecalciferol (Vitamin D3) 2,000 Unit Tablet, 2,000 UNIT PO DAILY, (Reported) Enzalutamide 40 Mg Capsule, 160 MG PO DAILY, (Reported) TAKES 4 (40MG) CAPSULES Gabapentin 300 Mg Capsule, 300 MG PO 1929, (Reported) Patient Home Medication List Home Medication List Reviewed: Yes Past Awhdipr-Ummcvt-Luvdvi Hx Patient Social History Alcohol Use: Occasionally Uses Number of Drinks Today: 0 Recreational Drug Use: No Smoking Status: Unknown if Ever Smoked Former Smoker, Quit: Oct 23, 1950 2nd Hand Smoke Exposure: No Recent Foreign Travel: No Contact w/Someone Who Travel: No Recent Infectious Disease Expo: No Recent Hopitalizations: No Physical Abuse Screen: Yes Sexual Abuse: No Immunizations Up To Date Date of Pneumonia Vaccine: May 30, 2012 Date of Influenza Vaccine: Aug 27, 2018 Seasonal Allergies Seasonal Allergies: No Surgeries History of Surgeries: Yes (pyloric stenosis sx, ) Respiratory History of Respiratory Disorde: No Cardiovascular History of Cardiac Disorders: Yes Neurological History of Neurological Disord: No Genitourinary History of Genitourinary Disor: Yes (PROSTATE CANCER) Genitourinary Disorders: Prostate Problems Gastrointestinal History of Gastrointestinal Di: No Musculoskeletal History of Musculoskeletal Dis: No Endocrine History of Endocrine Disorders: No HEENT History of HEENT Disorders: Yes (RIGHT PUPIL DEFORMITY) Loss of Vision: Denies Hearing Impairment: Denies Cancer History of Cancer: Yes Cancer: Prostate Psychosocial History of Psychiatric Problem: No Integumentary History of Skin or Integumenta: No Blood Transfusions History of Blood Disorders: No Adverse Reaction to a Blood Tr: No Family Medical History Significant Family History: Renal Disease (father) Family Medial History: Urinary tract infection 19 FATHER Review of Systems-General Constitutional: No chills, No diaphoresis; malaise, weakness EENTM: No blurred vision, No double vision, No mouth swelling, No epistaxis, No throat swelling Respiratory: No hemoptysis, No short of breath Cardiovascular: No chest pain, No palpitations Gastrointestinal: No abdominal pain; dysphagia; No hematemesis, No jaundice, No nausea Genitourinary: dysuria, frequency, hesitancy, incontinence Musculoskeletal: back pain, joint pain, muscle pain, muscle stiffness Skin: No change in color, No change in hair/nails Psychiatric/Neurological: Denies Anxiety, Denies Depressed Other pt denies any hx of abnormal bruising or bleeding Physical Exam-General Problems Physical Exam Vital Signs Vital Signs - First Documented 10/23/18 10:05 Temp 96.1 Pulse 91 Resp 20 B/P (MAP) 163/83 (109) Pulse Ox 98 O2 Delivery Room Air Capillary Refill : General Appearance: WD/WN (but looks frail), no apparent distress Eyes: Bilateral Eye PERRL, Bilateral Eye EOMI HEENT: pharynx normal; No scleral icterus (R), No scleral icterus (L) Neck: non-tender; No tender midline, No thyromegaly Respiratory: chest non-tender, lungs clear, normal breath sounds, no respiratory distress, no accessory muscle use Cardiovascular: regular rate, rhythm, no murmur Gastrointestinal: normal bowel sounds, non tender, soft, no organomegaly, no pulsatile mass Extremities: no pedal edema, no calf tenderness, normal capillary refill Neurologic/Psychiatric: internal carver II-XII nml as tested, alert, normal mood/affect, oriented x 3 Skin: normal color, warm/dry Assessment/Plan Assessment/Plan Assessment/Plan Dysphagia Esophageal phase Prostate CA - metastatic Plan is to do EGD with possible biopsy; since he ate today will do it tomorrow morning. Discussed procedure with pt; risks and complications not limited to pain, bleeding, infection and possible esophageal perforation. All questions answered to their satisfaction. He was made npo after midnight and consent for EGD with bx ordered. Clinical Quality Measures DVT/VTE Risk/Contraindication: Risk Factor Score Per Nursin RFS Level Per Nursing on Admit: 4+=Very High EDGARDO BURNS DO Oct 24, 2018 16:30
[2018-10-24 16:39] VITALS: BP 127/74
--- NOTE | 2018-10-24 18:43 | NUR ---
Consent for special procedure obtained for EsophagoGastroDuodenoscopy to be completed tomorrow by Dr. Schmitt. Consent reviewed with patient and , both stated understanding. No questions asked at this time. Consent signed and present in soft chart.
--- NOTE | 2018-10-24 19:31 | Consultation ---
History of Present Illness History of Present Illness Patient Consulted On(jayden/time) 10/24/18 19:17 Date Seen by Provider: Oct 24, 2018 Time Seen by Provider: 19:17 History of Present Illness Mr. Cochran is an 82 yo male with metastatic prostate cancer who was admitted on after falling in the bathroom and being found to have severe lower extremity weakness. I was consulted today to evaluate the role of his new prostate cancer medication in development of his symptoms. Patient reported dizziness initially, falling backwards, then after his supported him, his legs gave out under him and he hit his head. Prior to this episode, patient did not even realize he had leg weakness. While in the acute care hospital, patient was found to have lumbar spinal canal stenosis secondary to degenerative disk disease, but no evidence of malignancy was found on MRI brain or spine. He was discharged to the rehabilitation unit yesterday. Patient has not reported any significant dizziness nor weakness in rehab, although he has been monitored with a bed monitor and supported with a waist belt so strictly that he is not sure about his weakness. Patient says that he initially developed episodes of dizziness when he was 60. However, after that initial episode, it was nearly 20 years before he had his next episode. The episodes began infrequently, occurring every several months, but this past year, they happen as often as every 2-3 weeks. The dizziness episodes last up to a few days and spontaneously resolve. He also reports cyclical periods of malaise and weakness, every few weeks. His last severe episode of dizziness was in April, during which he could not walk or move. He does report dizziness with standing up quickly and moving his head quickly. reports a significant increase in his dizziness since he started taking enzalutamide for his prostate cancer in August but patient says he is not sure about it. Patient stopped taking enzalutamide in mid September because of hematuria and resumed it about a week ago. Allergies and Home Medications Allergies Coded Allergies: No Known Drug Allergies (Unverified , 12/23/12) Home Medications Aspirin 81 Mg Tablet.dr, 81 MG PO DAILY, (Reported) Cholecalciferol (Vitamin D3) 2,000 Unit Tablet, 2,000 UNIT PO DAILY, (Reported) Enzalutamide 40 Mg Capsule, 160 MG PO DAILY, (Reported) TAKES 4 (40MG) CAPSULES Gabapentin 300 Mg Capsule, 300 MG PO 1930, (Reported) Patient Home Medication List Home Medication List Reviewed: Yes Past Pqswoni-Ownwbv-Qlzliz Hx Past Med/Social Hx: Reviewed Nursing Past Med/Soc Hx, Reviewed and Corrections made Patient Social History Alcohol Use: Occasionally Uses Number of Drinks Today: 0 Alcohol Beverage of Choice: Beer Recreational Drug Use: No Smoking Status: Unknown if Ever Smoked Former Smoker, Quit: Oct 23, 1950 2nd Hand Smoke Exposure: No Recent Foreign Travel: No Contact w/Someone Who Travel: No Recent Infectious Disease Expo: No Recent Hopitalizations: No Immunizations Up To Date Date of Pneumonia Vaccine: May 30, 2012 Date of Influenza Vaccine: Aug 27, 2018 Seasonal Allergies Seasonal Allergies: No Past Medical History Surgeries: Yes (pyloric stenosis sx, ) Respiratory: No Currently Using CPAP: No Currently Using BIPAP: No Cardiac: Yes Neurological: No Genitourinary: Yes (PROSTATE CANCER) Prostate Problems Gastrointestinal: No Musculoskeletal: No Endocrine: No HEENT: Yes (RIGHT PUPIL DEFORMITY) Loss of Vision: Denies Hearing Impairment: Denies Cancer: Yes Prostate Did You Recieve Any Treatments: Yes What Type of Treatment Did You: Radiation, Other PO Medication for Prostate CX present Psychosocial: No Integumentary: No Blood Disorders: No Adverse Reaction/Blood Tranf: No Family Medical History Urinary tract infection 19 FATHER Renal Disease (father) Review of Systems-General Constitutional: dizziness, malaise, weakness EENTM: see HPI Respiratory: no symptoms reported Cardiovascular: No chest pain; edema; No palpitations; syncope Gastrointestinal: no symptoms reported Genitourinary: decreased output, hematuria, hesitancy Musculoskeletal: no symptoms reported Skin: no symptoms reported Psychiatric/Neurological: No Symptoms Reported Physical Exam-General Problems Physical Exam Vital Signs Vital Signs - First Documented 10/23/18 10:05 Temp 96.1 Pulse 91 Resp 20 B/P (MAP) 163/83 (109) Pulse Ox 98 O2 Delivery Room Air Capillary Refill : General Appearance: WD/WN, no apparent distress Eyes: Bilateral Eye Normal Inspection, Bilateral Eye EOMI HEENT: normal ENT inspection, pharynx normal Neck: non-tender, full range of motion, normal inspection Respiratory: lungs clear, normal breath sounds, no respiratory distress, no accessory muscle use Cardiovascular: normal peripheral pulses, regular rate, rhythm, no edema, no murmur Gastrointestinal: normal bowel sounds, non tender, soft Extremities: normal range of motion, non-tender, normal inspection, no pedal edema, no calf tenderness Neurologic/Psychiatric: no motor/sensory deficits, alert, normal mood/affect, oriented x 3 Skin: normal color, warm/dry Assessment/Plan Assessment/Plan Admission Diagnosis/Plan 82 yo male with metastatic prostate cancer was admitted for debility secondary to lumbar spinal stenosis. Malignancy workup was negative as etiology for his dizziness and weakness. Patient's dizziness has been present for more than 3 years, per his and family's history. It waxes and wanes but has been progressively worsening. Although dizziness has been worsening while patient was on androgen deprivation therapy for his prostate cancer, leuprolide and bicalutamide are not known for causing dizziness. His enzalutamide was only started in August, and by that time, patient was already having fairly severe dizziness episodes. Dizziness is a known complication of enzalutamide, so it could certainly be contributing to worsening symptoms, but I think it is difficult to know this, since patient has had such a short history of taking enzalutamide, and he has not always been so compliant with its use. Additionally our records in clinic have never documented dizziness while patient was taking the medication. I do not feel it is necessary to hold enzalutamide at this time. That being said, patient has said that he is no longer willing to take it. We will follow back up with him in clinic after discharge. Thank you for allowing me to participate in the care of Mr. Cochran. Clinical Quality Measures DVT/VTE Risk/Contraindication: Risk Factor Score Per Nursin RFS Level Per Nursing on Admit: 4+=Very High AMOL PIERSON MD Oct 24, 2018 19:31
[2018-10-24] MEDS: GABAPENTIN 300 MG (NEURONTIN) CAP PO SCH (20:38)
[2018-10-24] MEDS: BETHANECHOL 25 MG (URECHOLINE) TAB PO SCH (20:38)
[2018-10-25] MEDS: BETHANECHOL 25 MG (URECHOLINE) TAB PO SCH ×4 (03:00→20:58)
[2018-10-25 05:08] VITALS: BP 168/78
--- NOTE | 2018-10-25 10:46 | Physical Therapy Daily Note ---
PT Daily Note-Current Subjective Pt seated in chair, agreeable tot treatment. Mental Status Patient Orientation: Person, Place, Time Transfers Therapy Code Descriptions/Definitions Functional [place] Measure: 0=Not Assessed/NA 4=Minimal Assistance 1=Total Assistance 5=Supervision or Setup 2=Maximal Assistance 6=Modified [place] 3=Moderate Assistance 7=Complete [place] Therapy Quality Codes: 6 Independent with activity with or without an assistive device 5 Patient requires set up or clean up by helper. Patient completes activity by themselves 4 Supervision or touching assist (CGA). [place] provide cues , steadying assist 3 The helper provides less than half the effort to complete the activity 2 The helper provides more than half the effort to complete the activity 1 Dependent. The helper does all the effort to complete an activity 7 Patient refused to complete or attempt activity 9 The patient did not perform the activity before the current illness or injury 88 Not attempted due to Medical conditions or safety concerns Transfers (B, C, W/C) (FIM): 6 Sit to/from Stand: 6 Sit to Stand (QC): 6 Weight Bearing Full Weight Bearing Full Weight Bearing Gait Training Does the Patient Walk?: Yes Gait (FIM): 6 Distance (FIM): 3=150 ft Distance: 200ft Walk 150 ft (QC): 6 Gait Level of Assist: 6 Gait Persons Needed: 1 Gait Assistive Device: FWW Exercises Seated Therapy Exercises: LE Protocol Seated Reps: 15 Assessment Current Status: Good Progress Good stability and balance throughout treatment. No issues with dizziness or loss of balance. PT Shelter Goals Shelter Goals PT Shelter Goals Time Frame: Nov 15, 2018 Transfers (B,C,W/C) (FIM): 6 Sit to Lying (QC): 6 Lying-Sitting on Side/Bed(QC): 6 Sit to Stand (QC): 6 Rollin Roll Left to Right (QC): 6 Chair/Elt-gg-Ohdxe Xfer(QC): 6 Car Transfer (QC): 6 Does the Patient Walk: Yes Gait (FIM): 6 Gait distance (FIM): 3=150 ft Distance: >300' Walk 10 feet (QC): 6 Walk 10ft-Uneven Surface(QC): 6 Walk 50ft with 2 Turns (QC): 6 Walk 150 ft (QC): 6 Gait Level of Assist: 6 Gait Assistive Device: None, FWW, Cane Single Point Stairs (FIM): 6 # of Steps: 12 1 Step (curb) (QC): 6 4 Steps (QC): 6 12 Steps (QC): 6 Stairs Level Of Assist: 6 Picking up an Object (QC): 6 PT Plan Treatment/Plan Treatment Plan: Continue Plan of Care Treatment Plan: Bed Mobility, Education, Functional Activity [place], Functional Strength, Group Therapy, Gait, Safety, Therapeutic Exercise, Transfers Treatment Duration: Nov 15, 2018 Frequency: At least 5 of 7 days/Wk (IRF) Estimated Hrs Per Day: 1.5 hours per day Patient and/or Family Agrees t: Yes Time/GCodes Time In: 1020 Time Out: 1035 Total Billed Treatment Time: 15 Total Billed Treatment 1, gt 15 SHAVON GORDON PT Oct 25, 2018 10:46
--- NOTE | 2018-10-25 12:40 | NUR ---
pt down for EGD approx 30 min ago
--- NOTE | 2018-10-25 12:55 | PM&R Progress Note ---
Subjective HPI/CC On Admission Date Seen by Provider: Oct 25, 2018 Time Seen by Provider: 10:30 Patient voices no complaints this morning no problems with Baltazar catheter which is draining non-turbid urine without evidence for gross hematuria. He denies night sweats chills fever and is had no lower extremity pain. He still has gait instability but there has been some improvement. Patient is highly motivated for discharge. He is scheduled for cystoscopy sometime later today. Subjective/Events-last exam Patient was seen before EGD Upon further questioning patient reports that he has had difficulty with swallowing for quite some time and has to eat slowly and chew up things well or gets caught so I think it would be worth his time to proceed on with procedure and he agrees Family concerned about conscious sedation affecting his thought process and increasing confusion but I reassured stating that they were very brief medications and resolve quickly Required straight catheter x2 yesterday 500 cc of retention each time consistent with bladder scan Urecholine started by Has had a bowel movement Cancer medications have been stopped per patient request after oncology spoke to them regarding the possible side effects that they think is causing the confusion Participating in all therapies as required Spoke with Dr. Schmitt and he reports a very significant esophageal ulcer and severe duodenitis so he is ordered a soft diet only and crushed pills plus Protonix added Review of Systems General: Fatigue Musculoskeletal: back pain Neurological: Confusion Objective Exam Vital Signs Vital Signs Date Time Temp Pulse Resp B/P (MAP) Pulse Ox O2 Delivery O2 Flow Rate FiO2 10/25/18 05:08 97.9 82 18 168/78 (108) 98 Room Air Capillary Refill : General Appearance: No Apparent Distress, WD/WN, Chronically ill Respiratory: Chest Non Tender, Lungs Clear, Normal Breath Sounds, No Accessory Muscle Use, No Respiratory Distress Cardiovascular: Regular Rate, Rhythm, No Edema, No Gallop, No JVD, No Murmur, Normal Peripheral Pulses Neurologic/Psychiatric: Alert, Oriented x3, No Motor/Sensory Deficits, Normal Mood/Affect Skin: Normal Color, Warm/Dry Results/Procedures Lab Patient resulted labs reviewed. Assessment/Plan Assessment and Plan Assess & Plan/Chief Complaint Assessment: Fall with subsequent severe back pain and leg pain Prostate cancer with metastases Immobility due to pain Constipation-resolved Acute dysphagia with aspiration like episode with history of dilatation in the past s/p EGD tomorrow by Dr. Schmitt today 10/25/18 which revealed large esophageal ulcer and duodenitis placed on soft diet, crush meds and added PPI Acute urinary retention with history of prostate cancer s/p catheter discontinuation by urology who performed cystoscopy and has required 2 straight caths for 500cc+ urinary retention each episode placed on Urecholine Confusion could be prostate cancer medication related per family so Dr Cunningham agreed to stop meds for now Plan: EGD reviewed and appreciated by Dr Schmitt Bladder training per urology placed on Urecholine Continue therapies Monitor for confusion but cancer meds stopped per family and patient request with Oncology approval Fall risk Safety is paramount at home if continues to live independently Diagnosis/Problems Diagnosis/Problems (1) Debility Status: Acute (2) Urinary retention Status: Acute (3) Baltazar catheter in place Status: Resolved Resolution Date/Time: 10/24/18 @ 15:12 (4) Constipation Status: Resolved Qualifiers: Constipation type: drug induced constipation Qualified Codes: K59.03 - Drug induced constipation Resolution Date/Time: 10/25/18 @ 16:23 (5) Advanced age Status: Chronic (6) Prostate cancer Status: Chronic (7) Confusion Status: Acute (8) Risk for falls Status: Acute (9) Dizziness Status: Acute (10) Prostate cancer metastatic to multiple sites Status: Acute (11) Dysphagia Status: Acute Qualifiers: Dysphagia type: pharyngoesophageal phase Qualified Codes: R13.14 - Dysphagia, pharyngoesophageal phase (12) Esophageal ulcer Status: Acute Qualifiers: Esophageal ulcer bleeding: without bleeding Qualified Codes: K22.10 - Ulcer of esophagus without bleeding (13) Duodenitis Status: Acute Clinical Quality Measures Admission Status Admission Dx Assessment: Fall with subsequent severe back pain and leg pain Prostate cancer with metastases Immobile due to pain Urinary retention requiring Baltazar catheter placement and urology consultation Constipation Plan: Appreciate urology management Proceed on with therapies Bladder training once catheter is discontinued Safety is paramount at home if continues to live independently DVT/VTE Risk/Contraindication: Risk Factor Score Per Nursin RFS Level Per Nursing on Admit: 4+=Very High BRAYDEN COHEN DO Oct 25, 2018 12:55
[2018-10-25] MEDS: VITAMIN D3 1,000 UNITS (CHOLECALCIFEROL) TABLET PO SCH (14:13)
[2018-10-25] MEDS: ASPIRIN E.C. 81 MG (ECOTRIN) TAB PO SCH (14:13)
[2018-10-25] MEDS: ENZALUTAMIDE 40 MG PO SCH (14:13)
[2018-10-25 17:54] VITALS: BP 132/70
[2018-10-25] MEDS: PANTOPRAZOLE 40 MG (PROTONIX) TAB PO SCH (20:58)
[2018-10-25] MEDS: GABAPENTIN 300 MG (NEURONTIN) CAP PO SCH (20:58)
[2018-10-26 05:00] VITALS: BP 154/71
--- NOTE | 2018-10-26 06:12 | PM&R Progress Note ---
Subjective HPI/CC On Admission Date Seen by Provider: Oct 26, 2018 Time Seen by Provider: 06:00 Patient voices no complaints this morning no problems with Baltazar catheter which is draining non-turbid urine without evidence for gross hematuria. He denies night sweats chills fever and is had no lower extremity pain. He still has gait instability but there has been some improvement. Patient is highly motivated for discharge. He is scheduled for cystoscopy sometime later today. Subjective/Events-last exam Having more more difficulty urinating requiring in and out catheters for greater than 350 cc of output Sleeping currently and very soundly Nurse has no major other concerns Balance issue is a major fall risk Hopefully close monitoring at home at discharge from family will help him maintain upright status and prevent falls Review of Systems General: Fatigue Genitourinary: Retention Musculoskeletal: back pain, leg pain Neurological: Confusion Objective Exam Vital Signs Vital Signs Date Time Temp Pulse Resp B/P (MAP) Pulse Ox O2 Delivery O2 Flow Rate FiO2 10/26/18 08:32 Room Air 10/26/18 05:00 97.7 87 18 154/71 (98) 97 Capillary Refill : General Appearance: No Apparent Distress, WD/WN, Chronically ill Respiratory: Chest Non Tender, Lungs Clear, Normal Breath Sounds, No Accessory Muscle Use, No Respiratory Distress Cardiovascular: Regular Rate, Rhythm, No Edema, No Gallop, No JVD, No Murmur, Normal Peripheral Pulses Neurologic/Psychiatric: Alert, Oriented x3, No Motor/Sensory Deficits, Normal Mood/Affect Skin: Normal Color, Warm/Dry Results/Procedures Lab Patient resulted labs reviewed. Assessment/Plan Assessment and Plan Assess & Plan/Chief Complaint Assessment: Fall with subsequent severe back pain and leg pain Prostate cancer with metastases Immobility due to pain Constipation-resolved Acute dysphagia with aspiration like episode with history of dilatation in the past s/p EGD by Dr. Schmitt yesterday 10/25/18 which revealed large esophageal ulcer and duodenitis placed on soft diet, crush meds and added PPI Acute urinary retention with history of prostate cancer s/p catheter discontinuation by urology who performed cystoscopy and has required multiple straight caths for 500cc+ urinary retention each episode placed on Urecholine Confusion could be prostate cancer medication related per family so Dr Cunningham agreed to stop meds for now Plan: EGD reviewed and appreciated by Dr Schmitt Bladder training per urology placed on Urecholine Continue therapies Monitor for confusion but cancer meds stopped per family and patient request with Oncology approval Fall risk Safety is paramount at home if continues to live independently Diagnosis/Problems Diagnosis/Problems (1) Debility Status: Acute (2) Urinary retention Status: Acute (3) Baltazar catheter in place Status: Resolved Resolution Date/Time: 10/24/18 @ 15:12 (4) Constipation Status: Resolved Qualifiers: Constipation type: drug induced constipation Qualified Codes: K59.03 - Drug induced constipation Resolution Date/Time: 10/25/18 @ 16:23 (5) Advanced age Status: Chronic (6) Prostate cancer Status: Chronic (7) Confusion Status: Acute (8) Risk for falls Status: Acute (9) Dizziness Status: Acute (10) Prostate cancer metastatic to multiple sites Status: Acute (11) Dysphagia Status: Acute Qualifiers: Dysphagia type: pharyngoesophageal phase Qualified Codes: R13.14 - Dysphagia, pharyngoesophageal phase (12) Esophageal ulcer Status: Acute Qualifiers: Esophageal ulcer bleeding: without bleeding Qualified Codes: K22.10 - Ulcer of esophagus without bleeding (13) Duodenitis Status: Acute Clinical Quality Measures Admission Status Admission Dx Assessment: Fall with subsequent severe back pain and leg pain Prostate cancer with metastases Immobile due to pain Urinary retention requiring Baltazar catheter placement and urology consultation Constipation Plan: Appreciate urology management Proceed on with therapies Bladder training once catheter is discontinued Safety is paramount at home if continues to live independently DVT/VTE Risk/Contraindication: Risk Factor Score Per Nursin RFS Level Per Nursing on Admit: 4+=Very High BRAYDEN COHEN DO Oct 26, 2018 06:12
[2018-10-26] MEDS: BETHANECHOL 25 MG (URECHOLINE) TAB PO SCH ×4 (06:45→21:16)
[2018-10-26] MEDS: PANTOPRAZOLE 40 MG (PROTONIX) TAB PO SCH ×2 (09:22→21:16)
[2018-10-26] MEDS: VITAMIN D3 1,000 UNITS (CHOLECALCIFEROL) TABLET PO SCH (09:23)
[2018-10-26] MEDS: ENZALUTAMIDE 40 MG PO SCH (09:23)
--- NOTE | 2018-10-26 10:33 | NUR ---
Dr. Collins in to see pt, orders to increase Urecholine to 50 mg as ordered.
--- NOTE | 2018-10-26 10:42 | Progress Note-Urology ---
Progress Note-Urology Progress Notes/Assess & Plan Progress/Assessment & Plan VOIDING WELL BUT STILL NOT EMPTYING WELL. TOELERTED URECHOLINE 25 WE WILL INCREASE TO 50 AC & HS Final Diagnosis URINE RETENTION WAYNE FLANNERY MD Oct 26, 2018 10:42
[2018-10-26] MEDS: LIDOCAINE UROJET 2% GEL 10 ML PKG TOP PRN (12:57)
--- NOTE | 2018-10-26 15:00 | NUR ---
Dr. Schmitt has been in, & spoke w pt & re: EGD results, states to continue to hold the Aspirin, & to see him in the office in ~ 1 month, will need to have f/u EGD, states that pt had a nasty esophageal ulcer.
--- NOTE | 2018-10-26 15:02 | Progress Note ---
Subjective Time Seen by a Provider: 12:39 Subjective/Events-last exam Pt seen and examined, no new complaints and denies abdominal pain. He denies pain in throat. He states he is a little weak, but doesn't like the protein shakes they are giving him. Review of Systems General: No Chills Pulmonary: No Dyspnea, No Cough Cardiovascular: No: Chest Pain, Palpitations Gastrointestinal: No: Nausea, Vomiting Objective Exam Vital Signs Date Time Temp Pulse Resp B/P (MAP) Pulse Ox O2 Delivery O2 Flow Rate FiO2 10/26/18 08:32 Room Air 10/26/18 05:00 97.7 87 18 154/71 (98) 97 Room Air 10/25/18 20:47 Room Air 10/25/18 17:54 98.3 78 20 132/70 (90) 97 Room Air I & O 10/26/18 07:00 Intake Total 925 ml Output Total 1600 ml Balance -675 ml Capillary Refill : General Appearance: No Apparent Distress, WD/WN HEENT: PERRL/EOMI, Pharynx Normal Respiratory: Chest Non Tender, Lungs Clear, Normal Breath Sounds, No Accessory Muscle Use, No Respiratory Distress Cardiovascular: Regular Rate, Rhythm, No Edema, No Murmur Gastrointestinal: normal bowel sounds, non tender, soft Extremity: Normal Capillary Refill, No Calf Tenderness, No Pedal Edema Neurologic/Psychiatric: Alert, Oriented x3, No Motor/Sensory Deficits, Normal Mood/Affect Skin: Normal Color, Warm/Dry Assessment/Plan Assessment/Plan Assessment/Plan Duodenal Ulcer Gastritis Esophageal ulcer Pt should be on soft diet for next 6-8 weeks; with increased protein to help him regain strength. No solid foods and pills must be crushed. He should take Protonix as well to control acid production. We need to protect the esophagus and not irritate the ulcer. He should follow up in my office in a week and will need repeat EGD in 6-8 weeks. All questions answered to his and his 's satisfaction. Clinical Quality Measures DVT/VTE Risk/Contraindication: Risk Factor Score Per Nursin RFS Level Per Nursing on Admit: 4+=Very High EDGARDO BURNS DO Oct 26, 2018 15:02
--- NOTE | 2018-10-26 15:05 | Individualized Plan of Care ---
Individualized Plan of Care Rehab Nursing IPOC Order Admission Date Oct 23, 2018 at 10:05 Current Orders Orders Pt Evaluate/Treat Request (10/23/18 09:46) Request Ot Evaluate & Treat (10/23/18 09:46) Request For Cognitive Services (10/23/18 09:46) Admission-Acute Rehab Unit (10/23/18 10:51) Acetaminophen Tablet (Tylenol Tablet) (10/23/18 11:00) Calcium Carbonate Chew Tablet (Antacid C (10/23/18 11:00) Diphenhydramine Tablet (Benadryl Tablet) (10/23/18 11:00) Docusate Sodium Capsule (Colace Capsule) (10/23/18 11:00) Hydrocodone/Apap 5/325 Tablet (Lortab 5 (10/23/18 11:00) Melatonin Tablet (Melatonin Tablet) (10/23/18 11:00) Ondansetron Oral Dissolve Tab (Zofran (10/23/18 11:00) Polyethylene Glycol Powder Pkt (Miralax (10/23/18 11:00) Lactulose Oral Solution (Enulose Oral So (10/23/18 11:00) Consent-Obtain Consent For (10/23/18 11:28) Consent-Obtain Consent For (10/23/18 12:05) Heart Healthy (10/23/18 Lunch) Patient Visit (10/23/18 ) Speech Sound Lang Comp (10/23/18 ) Aspirin Enteric Coated Tablet (Ecotrin T (10/24/18 09:00) Gabapentin Capsule/Tablet (Neurontin Cap (10/23/18 19:30) (Nf) Enzalutamide (Xtandi) (10/24/18 09:00) (Nf) Cholecalciferol (Vitamin D3) (Vitam (10/24/18 09:00) Patient Visit (10/23/18 ) Pt Eval Moderate Complexity (10/23/18 ) Functional Activities, Ea 15 (10/23/18 ) Cholecalciferol Capsule/Tablet (Vitamin (10/24/18 09:00) Patient May Use Own Med,Single (Patient (10/23/18 15:00) Patient Visit (10/23/18 ) Functional Activities, Ea 15 (10/23/18 ) Ambulate 08,12,20 (10/23/18 15:48) Sequential Compression Device 08,20 (10/23/18 15:48) Dvt/Vte Risk - Notifiy Physici 08 (10/23/18 15:48) Consult Physician (10/23/18 15:49) Code/Resuscitation (10/23/18 18:56) Consult Urology (10/23/18 19:25) Automatic Tray (10/24/18 07:17) Telesitter Service Q4HR (10/24/18 06:00) Lidocaine 2% (Urojet) (Xylocaine Urojet) (10/24/18 08:37) General/Regular (10/24/18 Lunch) Consult Oncology/Hematology (10/24/18 11:40) Request For Dysphagia Services (10/24/18 11:40) Patient Visit (10/24/18 ) Treat. Speech/Lang/Voice (10/24/18 ) Dysphagia Evaluation Std (10/24/18 ) Consult General Surgery (10/24/18 14:01) Patient Visit (10/24/18 ) Ex Neuromuscular, Ea 15 Min (10/24/18 ) Exercise Therap, Ea 15 Min (10/24/18 ) Gait Training, Ea 15 Min (10/24/18 ) Bethanechol Tablet (Urecholine Tablet) (10/24/18 21:00) Nursing Communication (Order) (10/24/18 16:03) Lidocaine 2% (Urojet) (Xylocaine Urojet) (10/24/18 16:15) Npo After Midnight (Nursing Or (10/24/18 16:17) Nothing By Mouth (10/25/18 Breakfast) Consent-Obtain Consent For (10/24/18 16:17) Preop Checklist (10/24/18 16:17) Mrsa Screen (Icu,Preop,Cath) (10/24/18 21:24) Patient Visit (10/25/18 ) Gait Training, Ea 15 Min (10/25/18 ) Nursing Communication (Order) (10/25/18 14:27) Pantoprazole Tablet (Protonix Tablet) (10/25/18 21:00) Dys2 Mechanically Altered (10/25/18 Lunch) Bethanechol Tablet (Urecholine Tablet) (10/26/18 11:00) Nursing Communication (Order) (10/26/18 10:42) Lidocaine 2% (Urojet) (Xylocaine Urojet) (10/26/18 11:45) Rehab Nursing Orders: Ongoing Assess. of Cognitive Status, Ongoing Assess. of Function Status, Bladder Management, Bladder Scan, Bladder Training, Disease Management & Educaiton, Fluid/Electrolyte/Nutrition Mgmt, Management of Risks & Complications, Nutrition Management, Patient/Family Support Intensity of Therapy to be met Patient to be seen: Min.3h per day/5 of 7d PT IPOC Problem List: Safety, Balance, Gait Treatment Plan: Continue Plan of Care Bed Mobility, Education, Functional Activity Melba, Functional Strength, Group Therapy, Gait, Safety, Therapeutic Exercise, Transfers Treatment Duration: Nov 15, 2018 Frequency: At least 5 of 7 days/Wk (IRF) Estimated Hrs Per Day: 1.5 hours per day OT IPOC Problems: Decreased Activ Tolerance, Decreased Safety Aware, Impaired Cognition , Impaired Funct Balance, Impaired I ADL's, Impaired Self-Care Skills OT Treatment, Training and Edu: Yes Plan of Care: ADL Retraining, Functional Mobility, Group Exercise/Act as Ind, UE Funct Exercise/Act Treatment Duration: Nov 06, 2018 Frequency: At least 5 of 7 days/Wk (IRF) Estimated Hrs Per Day: 1.[address] IPOC Speech Therapy Treatment Plan: Continue Plan of Care Treatment Duration: Oct 31, 2018 Frequency: 5 times per week Estimated Hrs Per Day: .5 hour per day Dietitian/Label Tacker Dietitian/Label Tacker to monitor nutritional status and make changes and/or recommendations as needed and work with speech pathology on dietary upgrades as the occur. Physician IPOC Medical Issues being managed closely and that require the 24 hour availability of a physician: Monitor for aspiration and dysphasia due to esophageal ulcer Monitor for cognition deficit with dizziness while limiting medication including cancer meds Balance is an issue that is high risk for falls Bladder training with urinary retention and urology consultation with meds and catheter as needed Medical Issues: Bowel/Bladder Function, Falls Precautions, Fluid/Electrolyte/ Nutrition Balance Brief Synthesis of Preadmission Screen, Post-Admission Evaluation, and Therapy Evaluations: Potential for fall risk prevention Increase independence with ADLs Monitor for pain with strengthening exercises Speech therapy to work on cognition and memory decrease confusional episodes Medical Prognosis: good Anticipated Length of Stay: 7 days BRAYDEN COHEN DO Oct 26, 2018 15:05
[2018-10-26 17:00] VITALS: BP 146/76
[2018-10-26] MEDS: GABAPENTIN 300 MG (NEURONTIN) CAP PO SCH (19:57)
[2018-10-26] MEDS: MELATONIN 3 MG TABLET PO PRN (21:16)
--- NOTE | 2018-10-27 03:40 | NUR ---
Patient up to the bathroom x 2 in 30minutes. Patient unable to void. Patient c/o pain. Straith cath done at this time. 450cc of urine. Patient reports relief post.
[2018-10-27 05:10] VITALS: BP 135/73
[2018-10-27] MEDS: BETHANECHOL 25 MG (URECHOLINE) TAB PO SCH ×4 (06:19→21:00)
--- NOTE | 2018-10-27 07:36 | Occupational Ther Daily Note ---
OT Current Status-Daily Note Subjective Pt lying in bed, woke to name. Pt agrees to therapy. No c/o pain. Mental Status/Objective Patient Orientation: Person, Place, Time, Situation Therapy Code Descriptions/Definitions Functional Lagrange Measure: 0=Not Assessed/NA 4=Minimal Assistance 1=Total Assistance 5=Supervision or Setup 2=Maximal Assistance 6=Modified Lagrange 3=Moderate Assistance 7=Complete Lagrange ADL-Treatment Declines shower stating that he had taken shower late last evening. Pt agrees to change clothing and short sponge bath. Pt ambulated to toilet to urinate, SBA for safety, no AE. Stood at sink to complete grooming, SBA for safety, no LOB or AE. Therapy Code Descriptions/Definitions Functional Lagrange Measure: 0=Not Assessed/NA 4=Minimal Assistance 1=Total Assistance 5=Supervision or Setup 2=Maximal Assistance 6=Modified Lagrange 3=Moderate Assistance 7=Complete Lagrange Therapy Quality Codes: 6 Independent with activity with or without an assistive device 5 Patient requires set up or clean up by helper. Patient completes activity by themselves 4 Supervision or touching assist (CGA). [place] provide cues , steadying assist 3 The helper provides less than half the effort to complete the activity 2 The helper provides more than half the effort to complete the activity 1 Dependent. The helper does all the effort to complete an activity 7 Patient refused to complete or attempt activity 9 The patient did not perform the activity before the current illness or injury 88 Not attempted due to Medical conditions or safety concerns Eating (FIM): 6 (Able to set self up and use regular utensils to eat.) Eating (QC): 6 Grooming (FIM): 5 (SBA standing at sink to complete by self.) Oral Hygiene (QC): 6 Upper Body (FIM): 5 (After set up, pt able to don shirt by self.) Upper Body Dressing (QC): 5 On/Off Footwear (QC): 6 (Pt able to don/doff footwear by self.) Toileting (FIM): 6 (Pt able to complete by self, safety concerns.) Toileting Hygiene (QC): 6 Toilet/Commode Transfer (FIM): 6 (Completes, safety concerns.) Toilet Transfer (QC): 6 Other Treatment Pt ambulates to therapy gym with CGA, no AE. Completed arm bike to increase arm strength and activity tolerance for daily functional tasks, 15 min/25 medrano resistance. Resistive pegs completed to increase embroidery patternmaker/pinch strength for fasteners/ADLs, 50x each hand. Pt ambulated back to room to eat breakfast. After therapy, pt sitting in recliner with call light/phone in reach. All needs met in room. OT Short Term Goals Short Term Goals 1=Demonstrate adherence to instructed precautions during ADL tasks. 2=Patient will verbalize/demonstrate understanding of assistive devices/ modifications for ADL. 3=Patient will improve strength/tolerance for activity to enable patient to perform ADL's. OT Application Spec Goals Nursing Home Goals Time Frame: Nov 06, 2018 Eating (FIM): 6 Eating (QC): 6 Groomin Oral Hygiene (QC): 6 Bathing(FIM): 5 Shower/Bathe Self (QC): 5 Upper Body Dressing(FIM): 6 Upper Body Dressing (QC): 6 Lower Body Dressing(FIM): 6 Lower Body Dressing (QC): 6 On/Off Footwear (QC): 6 Toileting(FIM): 6 Toileting Hygiene (QC): 6 Transfers (B,C,W/C) (FIM): 6 Toilet/Commode Transfer(FIM): 6 Toilet/Commode Transfer (QC): 6 Shower Transfer(FIM): 5 Additional Goals: 1-Demonstrate ADL Tasks, 2-Verbalize Understanding, 3- ImproveStrength/Melba 1=Demonstrate adherence to instructed precautions during ADL tasks. 2=Patient will verbalize/demonstrate understanding of assistive devices/ modifications for ADL. 3=Patient will improve strength/tolerance for activity to enable patient to perform ADL's. OT Education/Plan Discharge Recommendations Plan/Recommendations: Continue POC Treatment Plan/Plan of Care Patient would benefit from OT for education, treatment and training to promote independence in ADL's, mobility, safety and/or upper extremity function for ADL' s. Plan of Care: ADL Retraining, Functional Mobility, Group Exercise/Act as Ind, UE Funct Exercise/Act Treatment Duration: Nov 06, 2018 Frequency: At least 5 of 7 days/Wk (IRF) Estimated Hrs Per Day: 1.5 hours per day Agreement: Yes Rehab Potential: Fair Time/GCodes Start Time: 06:55 Stop Time: 08:00 Total Time Billed (hr/min): 65 Billed Treatment Time 1 visit-ADL 3 (40 min) EX 1 (20 min) ALESSIA JACOBSEN Oct 27, 2018 07:36
--- NOTE | 2018-10-27 08:32 | PM&R Progress Note ---
Subjective This was a face to face visit with the patient. Date Seen by Provider: Oct 27, 2018 Time Seen by Provider: 08:00 Subjective/Events-last exam Patient was seen in his room while he was sitting up in a chair Daughter Marivel is at bedside Updated once again regarding the esophageal ulcer and duodenitis and need for soft bland diet and PPI Pt talks a lot about prostate cancer No pain is reported currently Urinary retention continues and is on in/out caths prn Wants to go home soon Dr Collins will see him this afternoon Review of Systems General: Fatigue HEENT: Dysphasia Genitourinary: Retention Objective Physician Exam Last Set of Vital Signs Vital Signs Date Time Temp Pulse Resp B/P (MAP) Pulse Ox O2 Delivery O2 Flow Rate FiO2 10/27/18 05:10 98.0 77 18 135/73 (93) 96 Room Air Capillary Refill : I&O Intake and Output 10/27/18 00:00 Intake Total 1200 ml Output Total 700 ml Balance 500 ml Intake Oral 1200 ml Output Urine Total 700 ml Bladder Scan Volume Amount 223 ml 350 ml 275 ml # Voids 5 # Bowel Movements 1 General: Alert, Cooperative, Other (subtle poor recall) HEENT: Atraumatic, PERRLA Lungs: Clear to Auscultation, Normal Air Movement Abdomen: Normal Bowel Sounds, Soft Extremities: No Clubbing, No Cyanosis Skin: No Rashes, No Breakdown Neuro: Normal Speech, Normal Tone, Sensation Intact, Cranial Nerves 3-12 NL, Reflexes 2+, Other (global weakness, disequilibrium) Psych/Mental Status: Mood NL, Other (confusion at times) Results Lab Data Microbiology 10/24/18 MRSA Screen - Final, Complete MRSA not isolated Current Funtional Status Await Dr Collins consultation recs regarding urinary retention Pain management Participating in therapies well ID soon at his request Assessment/Plan Assessment and Plan (1) Debility Status: Acute (2) Urinary retention Status: Acute (3) Baltazar catheter in place Status: Resolved (4) Constipation Qualifiers: Qualified Codes: K59.03 - Drug induced constipation Status: Resolved (5) Advanced age Status: Chronic (6) Prostate cancer Status: Chronic (7) Confusion Status: Acute (8) Risk for falls Status: Acute (9) Dizziness Status: Acute (10) Prostate cancer metastatic to multiple sites Status: Acute (11) Dysphagia Qualifiers: Qualified Codes: R13.14 - Dysphagia, pharyngoesophageal phase Status: Acute (12) Esophageal ulcer Qualifiers: Qualified Codes: K22.10 - Ulcer of esophagus without bleeding Status: Acute (13) Duodenitis Status: Acute Co-Morbidities that are continuing to impact the rehab process: (include details ) BRAYDEN COHEN DO Oct 27, 2018 08:32
[2018-10-27] MEDS: VITAMIN D3 1,000 UNITS (CHOLECALCIFEROL) TABLET PO SCH (08:43)
[2018-10-27] MEDS: PANTOPRAZOLE 40 MG (PROTONIX) TAB PO SCH ×2 (08:43→21:00)
[2018-10-27] MEDS: ENZALUTAMIDE 40 MG PO SCH (08:45)
--- NOTE | 2018-10-27 10:53 | NUR ---
CONTRACTS ADMINISTRATOR met with patient to complete initial assessment. Patient was alert and oriented times 23 with occasional forgetfulness. She admitted to ARU with debility and spinal stenosis. Prior to current hospitalization patient reports residing with spouse Lainey in [place], [place]. The home is one level with 2 steps at the back entrance 5 at the front entrance. Family is working through install hand rails at the back entrance for patient accessibility. Patient reports independence with use of front wheeled walker at home; however experienced several days per month of undiagnosed dizziness. PCP verified as Dr. Guzman and Oncologist as Dr. Huerta. Patient identifies spouse Lainey as primary contact at [phone] and daughter Maribel at [phone]. CONTRACTS ADMINISTRATOR verified insurance as Medicare and [employer] with prescription coverage: However unable to recall preferred pharmacy at this time. expressed eagerness to return home as soon as possible and request discharge today. CONTRACTS ADMINISTRATOR spoke with therapy, they expressed no concerns with discharge planning. Patient awaiting urology consult due to urinary retention. CONTRACTS ADMINISTRATOR discuss recommendations of home health services versus outpatient therapy; however patient declined services at this time. Spouse, Lainey was present during initial assessment and displayed worrisome behavior due to further therapy needs. CONTRACTS ADMINISTRATOR spoke with Dr. Friend regarding discharge, she is agreeable to discharge tomorrow if cleared by urology. CONTRACTS ADMINISTRATOR will await urology recommendations proceed with discharge planning.
--- NOTE | 2018-10-27 10:56 | Physical Therapy Daily Note ---
PT Daily Note-Current Subjective Pt. feels his balance and dizziness is much better however he cant empty his bladder like he should. Pt. states he may have to learn to self cath Pain Location: No Pain Reported Mental Status Patient Orientation: Person, Place, Time, Situation Transfers Therapy Code Descriptions/Definitions Functional [place] Measure: 0=Not Assessed/NA 4=Minimal Assistance 1=Total Assistance 5=Supervision or Setup 2=Maximal Assistance 6=Modified [place] 3=Moderate Assistance 7=Complete [place] Therapy Quality Codes: 6 Independent with activity with or without an assistive device 5 Patient requires set up or clean up by helper. Patient completes activity by themselves 4 Supervision or touching assist (CGA). [place] provide cues , steadying assist 3 The helper provides less than half the effort to complete the activity 2 The helper provides more than half the effort to complete the activity 1 Dependent. The helper does all the effort to complete an activity 7 Patient refused to complete or attempt activity 9 The patient did not perform the activity before the current illness or injury 88 Not attempted due to Medical conditions or safety concerns Transfers (B, C, W/C) (FIM): 6 Scootin Rollin Roll Left to Right (QC): 6 Supine to/from Sit: 6 Sit to/from Stand: 6 Sit to Lying (QC): 6 Sit to Stand (QC): 6 Chair/Ooi-gt-Falqp Xfer(QC): 6 Bed to/from Chair: 6 Car Transfer (QC): 6 (needed reminders to sit then bring both feet in. Pt attempted to stand on one leg to enter with other etc) Weight Bearing Full Weight Bearing Full Weight Bearing Gait Training Does the Patient Walk?: Yes Gait (FIM): 6 Distance (FIM): 3=150 ft (200x3) Walk 10 feet (QC): 6 Walk 50 ft with 2 Turns(QC): 6 Walk 150 ft (QC): 6 Walking 10ft/uneven surface-QC: 6 Gait Level of Assist: 6 Gait Persons Needed: 0 Gait Assistive Device: FWW pt. at times impulsive and fast moving interpreted by this [facility] AMBASSADOR as pt., showing he can do everything really well and really fast. Pt. cautioned to slow down Stair Training Stair Training: Handrails/: 2 handrails Stairs (FIM): 5 #of Steps: 12 1 Step (curb) (QC): 5 4 Steps (QC): 5 12 Steps (QC): 5 Stairs: Pattern: Reciprocal Level of Assist: 5 needs reminders to slow down, find edge of step SBA Balance Picking up an Object (QC): 6 Exercises Supine Ex: Bridging, Ankle pumps, Rolling, Heel Slides, Short Arc Quads, Scooting, Straight leg raise, Hip abd/add Supine Reps: 15 Standing: Heel/toe raises, Marching Standing Reps: 12 Neuromuscular floor TRFs, backward gait and other balance challenges no LOB Assessment Current Status: Good Progress pt. continues to need instruction and reminders for safety, to slow down and think safety PT Usp Goals Oncologist Goals PT Usp Goals Time Frame: Nov 15, 2018 Transfers (B,C,W/C) (FIM): 6 Sit to Lying (QC): 6 Lying-Sitting on Side/Bed(QC): 6 Sit to Stand (QC): 6 Rollin Roll Left to Right (QC): 6 Chair/Aua-wu-Typlg Xfer(QC): 6 Car Transfer (QC): 6 Does the Patient Walk: Yes Gait (FIM): 6 Gait distance (FIM): 3=150 ft Distance: >300' Walk 10 feet (QC): 6 Walk 10ft-Uneven Surface(QC): 6 Walk 50ft with 2 Turns (QC): 6 Walk 150 ft (QC): 6 Gait Level of Assist: 6 Gait Assistive Device: None, FWW, Cane Single Point Stairs (FIM): 6 # of Steps: 12 1 Step (curb) (QC): 6 4 Steps (QC): 6 12 Steps (QC): 6 Stairs Level Of Assist: 6 Picking up an Object (QC): 6 PT Plan Treatment/Plan Treatment Plan: Continue Plan of Care Treatment Plan: Bed Mobility, Education, Functional Activity Melba, Functional Strength, Group Therapy, Gait, Safety, Therapeutic Exercise, Transfers Treatment Duration: Nov 15, 2018 Frequency: At least 5 of 7 days/Wk (IRF) Estimated Hrs Per Day: 1.5 hours per day Patient and/or Family Agrees t: Yes Safety Risks/Education Patient Education: Gait Training, Transfer Techniques, Steps, Correct Positioning, Disease Process, Safety Issues Teaching Recipient: Patient Teaching Methods: Demonstration, Discussion Response to Teaching: Verbalize Understanding, Return Demonstration, Reinforcement Needed Time/GCodes Time In: 1015 Time Out: 1100 Total Billed Treatment Time: 45 Total Billed Treatment 1,NM15m,EX15m,GT15m G Codes Necessary: HANK Araiza [facility] AMBASS[facility]OR Oct 27, 2018 10:56
--- NOTE | 2018-10-27 12:15 | NUR ---
HAS TROUBLE REMEMBERING IF HE HAS VOIDED. THINKS HE "DRIBBLED SOME WHEN I HAD A BOWEL MOVEMENT". BLADDER SCAN SHOWS 87 CC.
--- NOTE | 2018-10-27 14:58 | Therapy Group Daily Note ---
Therapy Daily Group Note Patient Education Topic Other List Below (ARU OBJECTIVES AND REQUIREMENTS, UNDERSTANDING IMPORTANCE OF SLEEP) Exercises LE Seated Exercise, UE Exercise Other/Notes Pt. participated in group PT OT session this date at 3:1 ratio. Pt. profited from group therapy as he shared that he learned from others by observation while they performed U&L extremity exercises to perform with improved posture and alignment. Pts goal was to complete seated exercise while possibly managing dizziness or unsteadiness. Pt. denies this sensation or c/o during group this date. Education focus this date was ARU objectives and expectations which pat acknowledged he understood as well as the importance of sleep and some ways he might improve sleep even while here in hospital. Pt. to from room with FWW SBA to CGA. Pt. in chair visiting with after group. Bland at hand , alarm insitu in chair. Start Time: 13:00 Stop Time: 14:30 Total Billed Treatment Time: 90 Total Billed Treatment 1,GRP HANK COLÓN MRI ASSISTANT Oct 27, 2018 14:58
--- NOTE | 2018-10-27 15:33 | Speech Therapy Daily Note ---
Speech Daily Progress Note Subjective Date Seen by Provider: Oct 27, 2018 Time Seen by Provider: 00:30 Patient was sitting up eating his lunch when I arrived. Objective Patient completed OME for strengthening, safe oral intake. Assessment Assessment Current Status: Good Progress Treatment Plan Continue Plan of Care Communication Comprehension: 4 Expression: 4 Social Cognition Social Interaction: 5 Problem Solvin Memory: 3 Speech Short Term Goals Short Term Goals Short Term Goals 1) Patient will complete memory tasks with 90% or greater. 2) Patient will complete problem solving tasks with 90% or greater. 3) Patient will complete sequencing tasks related to his daily living at 90% or greater. 4) Patient will utilize compensatory strategies as trained at 90% or greater. Speech Intermediate Goals Wafer Line Worker Goals Patient will improve short term memory, problem solving and sequencing tasks for personal safety and independence. Patient will safely consume the least restrictive diet without s/s of aspiration. Speech-Plan Patient/Family Goals Patient/Family Goals: Patient plans to return home with his post rehab. Treatment Plan Speech Therapy Treatment Plan: Continue Plan of Care Patient was seen by a surgeon for esophagus with findings of a large ulcer. Treatment Duration: Oct 28, 2018 Frequency: 5 times per week Estimated Hrs Per Day: .5 hour per day Rehab Potential: Fair Barriers to Learning: Patient has memory deficits Pt/Family Agrees to Plan: Yes Safety Risks/Education Teaching Recipient: Patient, Significant Other Teaching Methods: Discussion Response to Teaching: Verbalize Understanding Education Topics Provided: Compensatory strategies for safe oral intake. Time Speech Therapy Time In: 11:30 Speech Therapy Time Out: 12:00 Total Billed Time: 30 Billed Treatment Time 1, VY Gray Oct 27, 2018 15:33
[2018-10-27 15:47] VITALS: BP 107/58
--- NOTE | 2018-10-27 16:15 | NUR ---
VOIDED 25 CC. BLADDER SCANNER SHOWS 313 CC. STRAIGHT CATH'D WITHOUT DIFFICULTY AND 315 CC RETURN.
--- NOTE | 2018-10-27 17:35 | Progress Note-Urology ---
Progress Note-Urology Progress Notes/Assess & Plan Progress/Assessment & Plan CONTINUES WELL RENE. PVR 315CC. KEEP SAME PLAN Final Diagnosis URINE RETENTION WAYNE FLANNERY MD Oct 27, 2018 17:35
[2018-10-27] MEDS: GABAPENTIN 300 MG (NEURONTIN) CAP PO SCH (19:22)
[2018-10-27] MEDS: MELATONIN 3 MG TABLET PO PRN (21:00)
[2018-10-28] MEDS: BETHANECHOL 25 MG (URECHOLINE) TAB PO SCH ×2 (05:46→11:22)
[2018-10-28] MEDS: LIDOCAINE UROJET 2% GEL 10 ML PKG TOP PRN (05:46)
[2018-10-28 06:21] VITALS: BP 146/75
--- NOTE | 2018-10-28 07:56 | Occupational Ther Daily Note ---
OT Current Status-Daily Note Subjective Pt alert, sitting on EOB. Pt agrees to therapy. No c/o pain. To discharge home today. Mental Status/Objective Patient Orientation: Person, Place, Time, Situation Therapy Code Descriptions/Definitions Functional [place] Measure: 0=Not Assessed/NA 4=Minimal Assistance 1=Total Assistance 5=Supervision or Setup 2=Maximal Assistance 6=Modified [place] 3=Moderate Assistance 7=Complete [place] Attachments: IV ADL-Treatment Therapy Code Descriptions/Definitions Functional [place] Measure: 0=Not Assessed/NA 4=Minimal Assistance 1=Total Assistance 5=Supervision or Setup 2=Maximal Assistance 6=Modified [place] 3=Moderate Assistance 7=Complete [place] Therapy Quality Codes: 6 Independent with activity with or without an assistive device 5 Patient requires set up or clean up by helper. Patient completes activity by themselves 4 Supervision or touching assist (CGA). [place] provide cues , steadying assist 3 The helper provides less than half the effort to complete the activity 2 The helper provides more than half the effort to complete the activity 1 Dependent. The helper does all the effort to complete an activity 7 Patient refused to complete or attempt activity 9 The patient did not perform the activity before the current illness or injury 88 Not attempted due to Medical conditions or safety concerns Eating (FIM): 7 (Completes own set up and uses regular utensils.) Eating (QC): 6 Grooming (FIM): 6 (Pt completed by self standing at sink. Safety concerns.) Oral Hygiene (QC): 6 Bathing (FIM): 6 (Using shower bench, grabbars and hand held shower completes by self. Safety concerns.) Bathing Location: L Arm, R Arm, L Upper Leg, R Upper Leg, L Lower Leg ( including foot), R Lower Leg (including foot), Chest, Abdomen, Buttocks, Perineal Area Shower/Bathe Self (QC): 6 Upper Body (FIM): 7 (Completes own set up and dresses self.) Upper Body Dressing (QC): 6 Lower Body Dressing (FIM): 6 (Completes own set up and dresses self. Safety concerns.) Lower Body Dressing (QC): 6 On/Off Footwear (QC): 6 Toileting (FIM): 6 (Completes by self. Safety concerns.) Toileting Hygiene (QC): 6 Transfers (B, C, W/C) (FIM): 6 Toilet/Commode Transfer (FIM): 6 (Completes by self. Safety concerns.) Toilet Transfer (QC): 6 Shower Transfer(FIM): 6 (Using grabbars and shower bench. Safety concerns.) After therapy, pt sitting in recliner with call light/phone in reach. Safety measures in place. All needs met in room. OT Short Term Goals Short Term Goals 1=Demonstrate adherence to instructed precautions during ADL tasks. 2=Patient will verbalize/demonstrate understanding of assistive devices/ modifications for ADL. 3=Patient will improve strength/tolerance for activity to enable patient to perform ADL's. OT Transistor Tester Goals Snf Goals Time Frame: Nov 06, 2018 Eating (FIM): 6 (met) Eating (QC): 6 (met) Groomin (met) Oral Hygiene (QC): 6 (met) Bathing(FIM): 5 (met) Shower/Bathe Self (QC): 5 (met) Upper Body Dressing(FIM): 6 (met) Upper Body Dressing (QC): 6 (met) Lower Body Dressing(FIM): 6 (met) Lower Body Dressing (QC): 6 (met) On/Off Footwear (QC): 6 (met) Toileting(FIM): 6 (m) Toileting Hygiene (QC): 6 (met) Transfers (B,C,W/C) (FIM): 6 (met) Toilet/Commode Transfer(FIM): 6 (met) Toilet/Commode Transfer (QC): 6 (met) Shower Transfer(FIM): 5 (met) Additional Goals: 1-Demonstrate ADL Tasks, 2-Verbalize Understanding, 3- ImproveStrength/Melba 1=Demonstrate adherence to instructed precautions during ADL tasks. 2=Patient will verbalize/demonstrate understanding of assistive devices/ modifications for ADL. 3=Patient will improve strength/tolerance for activity to enable patient to perform ADL's. OT Education/Plan Discharge Recommendations Plan/Recommendations: Discharge/Goals Met Therapy D/C Recommendations: Home w/ Family Support, Occupational Therapy Home Care, Occupational Therapy Outpatient Treatment Plan/Plan of Care Patient would benefit from OT for education, treatment and training to promote independence in ADL's, mobility, safety and/or upper extremity function for ADL' s. Plan of Care: ADL Retraining, Functional Mobility, Group Exercise/Act as Ind, UE Funct Exercise/Act Treatment Duration: Nov 06, 2018 Frequency: At least 5 of 7 days/Wk (IRF) Estimated Hrs Per Day: 1.5 hours per day Agreement: Yes Rehab Potential: Fair Time/GCodes Start Time: 06:50 Stop Time: 07:40 Total Time Billed (hr/min): 50 Billed Treatment Time 1 visit-ADL 3 (50 min) ALESSIA JACOBSEN Oct 28, 2018 07:56
--- NOTE | 2018-10-28 08:39 | Physical Therapy Daily Note ---
PT Daily Note-Current Subjective Pt reports feeling pretty good today and ready to go home Pain Numeric Pain Scale: 0-No Pain Location: No Pain Reported Appearance Pre treatment, Pt sitting up in recliner with chair alarm activated, awake and alert and agreeable to PT treatment. 2 physicians spoke with pt during therapy session. At end of session, pt sitting up in recliner, chair alarm activated, with call light phone and bedside table within reach speaking with physician. All needs met at this time. Mental Status Patient Orientation: Person, Place, Time, Eyes Open, Situation Transfers Therapy Code Descriptions/Definitions Functional [place] Measure: 0=Not Assessed/NA 4=Minimal Assistance 1=Total Assistance 5=Supervision or Setup 2=Maximal Assistance 6=Modified [place] 3=Moderate Assistance 7=Complete [place] Therapy Quality Codes: 6 Independent with activity with or without an assistive device 5 Patient requires set up or clean up by helper. Patient completes activity by themselves 4 Supervision or touching assist (CGA). [place] provide cues , steadying assist 3 The helper provides less than half the effort to complete the activity 2 The helper provides more than half the effort to complete the activity 1 Dependent. The helper does all the effort to complete an activity 7 Patient refused to complete or attempt activity 9 The patient did not perform the activity before the current illness or injury 88 Not attempted due to Medical conditions or safety concerns Transfers (B, C, W/C) (FIM): 6 Scootin Rollin Roll Left to Right (QC): 6 Supine to/from Sit: 6 Sit to/from Stand: 6 Sit to Lying (QC): 6 Sit to Stand (QC): 6 Chair/Ymv-op-Iklai Xfer(QC): 6 Bed to/from Chair: 6 Car Transfer (QC): 6 Pt steady and safe with all transfers performed this session Weight Bearing Full Weight Bearing Full Weight Bearing Gait Training Does the Patient Walk?: Yes Gait (FIM): 6 Distance (FIM): 3=150 ft Distance: 350 Walk 10 feet (QC): 6 Walk 50 ft with 2 Turns(QC): 6 Walk 150 ft (QC): 6 Walking 10ft/uneven surface-QC: 5 Gait Level of Assist: 6 Gait Persons Needed: 1 Gait Assistive Device: FWW Pt demonstrating safe steady gait, does perform turns a little quickly but without LOB or unsteadiness Wheelchair Training Does the Pt Use a Wheelchair?: No Stair Training Stair Training: Handrails/: 1 handrail Stairs (FIM): 5 #of Steps: 12 1 Step (curb) (QC): 5 4 Steps (QC): 5 12 Steps (QC): 5 Stairs: Pattern: Reciprocal Level of Assist: 5 Pt demonstrating good technique on stairs using one handrail and single curb with use of FWW, no LOB or unsteadiness but is slow and cautious Balance Picking up an Object (QC): 4 Special Test Comments Instruction required for technique for safety Treatments safety, gait, transfer, bed mobility, stair, curb and balance training Assessment Current Status: Good Progress Pt performed well today without LOB or unsteadiness. Verb instruction required once during session, that was with safely picking up an object from the floor. PT Correction Goals Compugraph Operator Goals PT Compugraph Operator Goals Time Frame: Nov 15, 2018 Transfers (B,C,W/C) (FIM): 6 Sit to Lying (QC): 6 Lying-Sitting on Side/Bed(QC): 6 Sit to Stand (QC): 6 Rollin Roll Left to Right (QC): 6 Chair/Tna-pu-Nlxar Xfer(QC): 6 Car Transfer (QC): 6 Does the Patient Walk: Yes Gait (FIM): 6 Gait distance (FIM): 3=150 ft Distance: >300' Walk 10 feet (QC): 6 Walk 10ft-Uneven Surface(QC): 6 Walk 50ft with 2 Turns (QC): 6 Walk 150 ft (QC): 6 Gait Level of Assist: 6 Gait Assistive Device: None, FWW, Cane Single Point Stairs (FIM): 6 # of Steps: 12 1 Step (curb) (QC): 6 4 Steps (QC): 6 12 Steps (QC): 6 Stairs Level Of Assist: 6 Picking up an Object (QC): 6 PT Plan Treatment/Plan Treatment Plan: Continue Plan of Care (Plan for pt to discharge home today) Treatment Plan: Bed Mobility, Education, Functional Activity Melba, Functional Strength, Group Therapy, Gait, Safety, Therapeutic Exercise, Transfers Treatment Duration: Nov 15, 2018 Frequency: At least 5 of 7 days/Wk (IRF) Estimated Hrs Per Day: 1.5 hours per day Patient and/or Family Agrees t: Yes Safety Risks/Education Patient Education: Gait Training, Transfer Techniques, Steps, Safety Issues Teaching Recipient: Patient Teaching Methods: Demonstration, Discussion Response to Teaching: Verbalize Understanding, Return Demonstration Time/GCodes Time In: 800 Time Out: 840 Total Billed Treatment Time: 40 Total Billed Treatment 1 visit FA x3 NAVARRO BAHENA PTA Oct 28, 2018 08:39
--- NOTE | 2018-10-28 08:43 | Progress Note-Urology ---
Progress Note-Urology Progress Notes/Assess & Plan Progress/Assessment & Plan PATIENT WILLING TO LEARN ISC. START TEACHING TODAY AND DISMISS ONCE MASTER IT WITH [facility] VISIT DAILY TO SUPERVISE, ALSO ON URECHOLINE 50 AC AND HS, AND FOLLOW UP IN OFFICE IN ONE WEEK Final Diagnosis URINE RETENTION AND CA PROSTATE WAYNE FLANNERY MD Oct 28, 2018 08:42
[2018-10-28] MEDS ORDERED: PANT40TA3 PO (08:57)
[2018-10-28] MEDS ORDERED: BETH25TA PO (08:57)
[2018-10-28] MEDS ORDERED: ACHD5005 PO (08:57)
--- NOTE | 2018-10-28 08:59 | Discharge Summary ---
Diagnosis/Chief Complaint Date of Admission Oct 23, 2018 at 10:05 Date of Discharge Discharge Date: Oct 28, 2018 Discharge Diagnosis Debilityresolved Dizziness with falls improved since stopping cancer meds per patient Urinary retention requiring self catheters at discharge Esophageal ulcer on soft diet and proton pump inhibitor Confusionimproved Reason Hospital Visit CC: Dizziness HPI: Pt admitted to rehab after being admitted to the hospital for dizziness and fall and could not ambulate. Pt has history of increased size of RUL pulmonary nodule and metastatic prostate cancer, and spinal stenosis. Pt had left sided weakness while in the hospital and was determined to be a good candidate for PT. While in the hospital, pt was unable to void and a Baltazar had to be placed. Urology has been consulted for possible cystoscopy for the urinary retention transferred later today. Patient arrived in the room family at the bedside and very interested in ordering his lunch which I try to minimize my interference in order for him to complete that task Denies any significant pain although he did take pain pills left over from his tooth surgery and he did take almost all of those prior to coming to the hospital When asked about his bowels he said that he usually goes on his regular routine so we will monitor that closely due to narcotic use for pain Reviewed all of his home medications and restarted Overall patient at high risk for falls of physical therapy will focus on minimizing falls and maintaining safety at home along with involvement with his family. Discharge Summary Discharge Physical Examination Allergies: Coded Allergies: No Known Drug Allergies (Unverified , 12/23/12) Vitals & I&Os Vital Signs Date Time Temp Pulse Resp B/P (MAP) Pulse Ox O2 Delivery O2 Flow Rate FiO2 10/28/18 13:35 73 16 146/75 96 Room Air 10/28/18 06:21 98.2 Hospital Course Patient had a brief inpatient rehab hospital course after he was admitted for severe debility after a fall and unable to ambulate. He was given pain medication and was able to participate in therapies. Baltazar catheter was discontinued and urology was consulted. Urecholine was initiated but did not resolve the urinary retention so he agreed for self catheters at home and he was given education regarding that. He will have close follow-up with urology in 1 week. EGD was obtained due to dysphasia complicating therapy course and that was revealed to have esophageal ulcer with duodenitis placed on proton pump inhibitor and soft and bland diet. Prostate cancer medications were assessed to be the cause of his dizziness and falls and confusion and saw him in consultation and agreed to hold cancer medication until further notice until discharge from hospital and follow-up as an outpatient. Patient was deemed stable for discharge in improved condition and will have close follow -up with primary care provider Dr. Jesse Guzman. Labs (last 24 hrs) Microbiology 10/24/18 MRSA Screen - Final, Complete MRSA not isolated Pending Labs Microbiology Date/Time Source Procedure Growth Status 10/24/18 21:20 Nasal MRSA Screen - Final MRSA not isolated Complete Discharge Home Medications: Active Scripts Active Pantoprazole Sodium 40 Mg Tablet.dr 40 Mg PO BID Hydrocodone/Acetaminophen 5/325mg Tablet (Acetaminophen/Hydrocodone Bitart) 1 Tab Tab 1 Tab PO Q4H PRN Bethanechol Chloride 25 Mg Tablet 50 Mg PO ACHS Reported Gabapentin 300 Mg Capsule 300 Mg PO 1930 Aspirin EC (Aspirin) 81 Mg Tablet.dr 81 Mg PO DAILY Vitamin D3 (Cholecalciferol (Vitamin D3)) 2,000 Unit Tablet 2,000 Unit PO DAILY Instructions to patient/family Please see electronic discharge instructions given to patient. Diagnosis/Problems Diagnosis/Problems (1) Debility Status: Acute (2) Urinary retention Status: Acute (3) Baltazar catheter in place Status: Resolved Resolution Date/Time: 10/24/18 @ 15:12 (4) Constipation Status: Resolved Qualifiers: Qualified Codes: K59.03 - Drug induced constipation Resolution Date/Time: 10/25/18 @ 16:23 (5) Advanced age Status: Chronic (6) Prostate cancer Status: Chronic (7) Confusion Status: Acute (8) Risk for falls Status: Acute (9) Dizziness Status: Acute (10) Prostate cancer metastatic to multiple sites Status: Acute (11) Dysphagia Status: Acute Qualifiers: Qualified Codes: R13.14 - Dysphagia, pharyngoesophageal phase (12) Esophageal ulcer Status: Acute Qualifiers: Qualified Codes: K22.10 - Ulcer of esophagus without bleeding (13) Duodenitis Status: Acute Clinical Quality Measures DVT/VTE Risk/Contraindication: Risk Factor Score Per Nursin RFS Level Per Nursing on Admit: 4+=Very High BRAYDEN COHEN DO Oct 28, 2018 08:59
--- NOTE | 2018-10-28 08:59 | D/C HH Face to Face Order ---
D/C Face to Face Orders Instructions for Patient Via [facility], Patient Instructions/FollowUp: Dr Guzman in [address] Collins in 1 week Physician to follow Patient: Dr Guzman Discharge Diet for Home: other diet (soft bland diet for healing of esophageal ulcer) Patient Problems: Debility Falls Prostate cancer Urinary retention Esophageal ulcer Patient Data-Allergies,Ht & Wt Patient Allergies: Coded Allergies: No Known Drug Allergies (Unverified , 12/23/12) Height (Feet): 5 Height (Inches): 7.00 Weight (Pounds): 164 Weight (Ounces): 4.0 Home Health Need/Face to Face Date of Face to Face: Oct 28, 2018 Clinical Findings: Generalized weakness and fatigue, Instability, Muscle weakness, Unsteady gait I have seen Pt [id number]: Yes Discharged To: Home Diagnosis/Conditions: Debility Falls Prostate cancer Urinary retention Esophageal ulcer Patient is Homebound due to: CognItive deficits, Fela fall risk due to instabilty Homebound Status Due to the above stated illness, injury or surgical procedure (medical condition or diagnosis) and associated clinical findings, the patient is homebound because of his/her inability to leave home except with aid of a supportive device and/or person AND leaving the home requires a considerable and taxing effort or is medically contraindicated. Pt req the following assistanc: Walker Home Health Nursing Orders Home Health Services Order: Nursing Services, Pest Control Service Sales Agent-Evaluate & Treat, Physical Therapy-Evaluate & Treat Home Health Infusion Therapy Line Type: Peripheral IV Site Location: Antecubital Certify Stmt I certify that this patient is under my care and that I, a nurse practitioner or a physician; a stonecutter assistant working with me, had a face to face encounter that - meets the physician face to face encounter requirements with this patient as dated. BRAYDEN COHEN DO Oct 28, 2018 08:59
[2018-10-28] MEDS: VITAMIN D3 1,000 UNITS (CHOLECALCIFEROL) TABLET PO SCH (09:12)
[2018-10-28] MEDS: ENZALUTAMIDE 40 MG PO SCH (09:12)
[2018-10-28] MEDS: PANTOPRAZOLE 40 MG (PROTONIX) TAB PO SCH (09:12)
--- NOTE | 2018-10-28 09:53 | Speech Therapy Daily Note ---
Speech Daily Progress Note Subjective Date Seen by Provider: Oct 28, 2018 Time Seen by Provider: 00:15 Patient is excited to be going home today. Assessment Assessment Current Status: Excellent Progress Treatment Plan Discontinue ST, Goals Met Communication Comprehension: 7 Expression: 7 Social Cognition Social Interaction: 7 Problem Solvin Memory: 7 Speech Short Term Goals Short Term Goals Short Term Goals 1) Patient will complete memory tasks with 90% or greater. Met 2) Patient will complete problem solving tasks with 90% or greater. Met 3) Patient will complete sequencing tasks related to his daily living at 90% or greater. Met 4) Patient will utilize compensatory strategies as trained at 90% or greater. Met Speech Skilled Nursing Goals Skilled Nursing Goals Patient will improve short term memory, problem solving and sequencing tasks for personal safety and independence. Met Patient will safely consume the least restrictive diet without s/s of aspiration. Met Speech-Plan Patient/Family Goals Patient/Family Goals: Patient is going home with his today. Treatment Plan Speech Therapy Treatment Plan: Discontinue ST, Goals Met Patient has made excellent progress. Treatment Duration: Oct 28, 2018 Frequency: 5 times per week Estimated Hrs Per Day: .5 hour per day Rehab Potential: Fair Barriers to Learning: Patient requires verbal reminders at times. Pt/Family Agrees to Plan: Yes Safety Risks/Education Teaching Recipient: Patient Teaching Methods: Discussion Response to Teaching: Verbalize Understanding Education Topics Provided: Safety with oral intake upon his return home. Time Speech Therapy Time In: 08:45 Speech Therapy Time Out: 09:00 Total Billed Time: 15 Billed Treatment Time 1, VY Healy Oct 28, 2018 09:53
--- NOTE | 2018-10-28 09:57 | Therapy Team Discharge Summary ---
Therapy Discharge Summary Discharge Recommendations Date of Discharge 10/28/18 Therapy D/C Recommendations: Home w/ Family Support, Occupational Therapy Home Care, Occupational Therapy Outpatient Occupational Therapy Decreased Activ Tolerance, Decreased Safety Aware, Impaired Cognition, Impaired Funct Balance, Impaired I ADL's, Impaired Self-Care Skills Speech-Language Pathology Patient was admitted to ARU following acute admission related to debility. Patient was evaluated for cognitive/communication and dysphagia. Patient had an esophageal procedure with findings to be a large ulcer. He was placed on puree/ soft diet level and medication to heal the ulcer. Patient made excellent progress with memory, problem solving and dysphagia therapy. Patient is discharging to home with his today and will discharged from skilled . PT Manager Party Goals Usp Goals PT Usp Goals Time Frame: Nov 15, 2018 Transfers (B,C,W/C) (FIM): 6 Roll Left to Right (QC): 6 Sit to Lying (QC): 6 Lying-Sitting on Side/Bed(QC): 6 Sit to Stand (QC): 6 Chair/Jpz-vu-Gfrxm Xfer(QC): 6 Car Transfer (QC): 6 Does the Patient Walk: Yes Gait (FIM): 6 Gait distance (FIM): 3=150 ft Distance: >300' Walk 10 feet (QC): 6 Walk 10ft-Uneven Surface(QC): 6 Walk 50ft with 2 Turns (QC): 6 Walk 150 ft (QC): 6 Gait Level of Assist: 6 Gait Assistive Device: None, FWW, Cane Single Point Stairs (FIM): 6 # of Steps: 12 1 Step (curb) (QC): 6 4 Steps (QC): 6 12 Steps (QC): 6 Stairs Level Of Assist: 6 Picking up an Object (QC): 6 OT Manager Party Goals Usp Goals Time Frame: Nov 06, 2018 Eating (FIM): 6 (met) Eating (QC): 6 (met) Oral Hygiene (QC): 6 (met) Grooming(FIM): 6 (met) Bathing(FIM): 5 (met) Shower/Bathe Self (QC): 5 (met) Upper Body Dressing(FIM): 6 (met) Upper Body Dressing (QC): 6 (met) Lower Body Dressing(FIM): 6 (met) Lower Body Dressing (QC): 6 (met) On/Off Footwear (QC): 6 (met) Toileting(FIM): 6 (m) Toileting Hygiene (QC): 6 (met) Transfers (B,C,W/C) (FIM): 6 (met) Toilet/Commode Transfer(FIM): 6 (met) Toilet/Commode Transfer (QC): 6 (met) Shower Transfer(FIM): 5 (met) Additional Goals: 1-Demonstrate ADL Tasks, 2-Verbalize Understanding, 3- ImproveStrength/Melba 1=Demonstrate adherence to instructed precautions during ADL tasks. 2=Patient will verbalize/demonstrate understanding of assistive devices/ modifications for ADL. 3=Patient will improve strength/tolerance for activity to enable patient to perform ADL's. Speech Manager Party Goals Manager Party Goals Patient will improve short term memory, problem solving and sequencing tasks for personal safety and independence. Met Patient will safely consume the least restrictive diet without s/s of aspiration. Met VY ELLINGTON Oct 28, 2018 09:57
--- NOTE | 2018-10-28 12:00 | NUR ---
Visited with pt about doing straight catheterization procedure for urinary retention. Gave handout with explanation of procedure with step by step on how to do a self cath. Also gave information on how to clean catheters after use. discussed s/sx of UTI, ways to prevent, and when to call Gave supplies needed for home use. Pt verbalized understanding with no question at this time. Addendum: 10/28/18 at 1248 by CAMELIA MEHTA RN Amended: Links added.
--- NOTE | 2018-10-28 12:00 | NUR ---
HOSPITAL NURSE EDUCATOR HERE TO TEACH STRAIGHT CATH PROCEDURE, VERBALIZED UNDERSTANDING
--- NOTE | 2018-10-28 12:02 | NUR ---
Met with patient in regards to Dr. Collins's recommendation of [facility]. Patient provided [facility] Patient Choice form and he elected to proceed with [facility]. Referral submitted.
--- NOTE | 2018-10-28 12:30 | NUR ---
SALINE LOCK DC, VERONICA WELL
--- NOTE | 2018-10-28 13:00 | NUR ---
bladder scan done 300ml , patient straight cathed self with #15 catheter without difficulty, 325 ml clear yellow urine, used proper technique, and nurse at bedside.
--- NOTE | 2018-10-28 13:07 | Therapy Team Discharge Summary ---
Therapy Discharge Summary Discharge Recommendations Date of Discharge 10-28-18 Therapy D/C Recommendations: Home w/ Family Support, Occupational Therapy Home Care, Occupational Therapy Outpatient Occupational Therapy Pt. has been seen by occupational therapy to increase overall strength with daily tasks, and to increase independence for functional return home. Pt. has met all goals with some safety concerns for impulsivity. Pt. is able to bathe/ dress self with Mod I overall. Pt. is to discharge home with spouse. All needs have been met on this unit. Decreased Safety Aware, Impaired Cognition, Impaired I ADL's PT Vegetable Specker Goals Vegetable Specker Goals PT Chcf Goals Time Frame: Nov 15, 2018 Transfers (B,C,W/C) (FIM): 6 Roll Left to Right (QC): 6 Sit to Lying (QC): 6 Lying-Sitting on Side/Bed(QC): 6 Sit to Stand (QC): 6 Chair/Hwp-pq-Pgpjs Xfer(QC): 6 Car Transfer (QC): 6 Does the Patient Walk: Yes Gait (FIM): 6 Gait distance (FIM): 3=150 ft Distance: >300' Walk 10 feet (QC): 6 Walk 10ft-Uneven Surface(QC): 6 Walk 50ft with 2 Turns (QC): 6 Walk 150 ft (QC): 6 Gait Level of Assist: 6 Gait Assistive Device: None, FWW, Cane Single Point Stairs (FIM): 6 # of Steps: 12 1 Step (curb) (QC): 6 4 Steps (QC): 6 12 Steps (QC): 6 Stairs Level Of Assist: 6 Picking up an Object (QC): 6 OT Vegetable Specker Goals Chcf Goals Time Frame: Nov 06, 2018 Eating (FIM): 6 (met) Eating (QC): 6 (met) Oral Hygiene (QC): 6 (met) Grooming(FIM): 6 (met) Bathing(FIM): 5 (met) Shower/Bathe Self (QC): 5 (met) Upper Body Dressing(FIM): 6 (met) Upper Body Dressing (QC): 6 (met) Lower Body Dressing(FIM): 6 (met) Lower Body Dressing (QC): 6 (met) On/Off Footwear (QC): 6 (met) Toileting(FIM): 6 (m) Toileting Hygiene (QC): 6 (met) Transfers (B,C,W/C) (FIM): 6 (met) Toilet/Commode Transfer(FIM): 6 (met) Toilet/Commode Transfer (QC): 6 (met) Shower Transfer(FIM): 5 (met) Additional Goals: 1-Demonstrate ADL Tasks, 2-Verbalize Understanding, 3- ImproveStrength/Melba 1=Demonstrate adherence to instructed precautions during ADL tasks. 2=Patient will verbalize/demonstrate understanding of assistive devices/ modifications for ADL. 3=Patient will improve strength/tolerance for activity to enable patient to perform ADL's. Speech Vegetable Specker Goals Chcf Goals Patient will improve short term memory, problem solving and sequencing tasks for personal safety and independence. Met Patient will safely consume the least restrictive diet without s/s of aspiration. Met MONICA OSBORN OT Oct 28, 2018 13:07
--- NOTE | 2018-10-28 13:30 | NUR ---
DISCHARGE INSTRUCTIONS GIVEN, VERBALIZED UNDERSTANDING OF FOLLOW UP APPOINTMENT AND PRESCRIPTIONS, VERBALIZED UNDERSTANDING OF STRAIGHT CATH DAILY.
[2018-10-28 13:35] VITALS: BP 146/75
--- NOTE | 2018-10-28 13:35 | NUR ---
GINETTE PATINO demonstrates understanding of discharge instructions and accurately returns instructions upon questioning. Copy of Post-Discharge Instructions and Medication Discharge Instructions given to PATIENT. GINETTE PATINO is able to manage continuing needs after discharge. Patients belongings returned to PATIENT. Skin dry and intact; no breakdown noted. Patient discharged from [facility]- on 10/28/18 at 1335. GINETTE PATINO left floor via W/C, accompanied by STAFF AND FAMILY.
--- NOTE | 2018-10-28 14:53 | NUR ---
Offered supportive presence and engaged in rapport building. Pt is Mandaeism and goes by "Mario Alberto."
--- NOTE | 2018-10-29 09:34 | Therapy Team Discharge Summary ---
Therapy Discharge Summary Discharge Recommendations Date of Discharge Oct 28, 2018 at 13:35 Therapy D/C Recommendations: Home w/ Family Support, Occupational Therapy Home Care, Occupational Therapy Outpatient Physical Therapy This patient was transferred to ARU from [facility] for continued medical care and skilled therapy post dx of intractable vertigo. Prior to his hospital stay, he was indep with all functional mobility. Upon initial evalustion, he was min assist with transfers, gait and stairs. Treatment has focused on functional strength, transfers, gait training, balance training and safety. At discharge, he is mod indep wtih all functional mobility. He has achieved goals to a satisfactory level and he was very anxious to discharge home. DC PT at this time. Occupational Therapy Decreased Safety Aware, Impaired Cognition, Impaired I ADL's PT Television Technician Goals Retirement Goals PT Television Technician Goals Time Frame: Nov 15, 2018 Transfers (B,C,W/C) (FIM): 6 Roll Left to Right (QC): 6 Sit to Lying (QC): 6 Lying-Sitting on Side/Bed(QC): 6 Sit to Stand (QC): 6 Chair/Cdz-it-Scfmv Xfer(QC): 6 Car Transfer (QC): 6 Does the Patient Walk: Yes Gait (FIM): 6 Gait distance (FIM): 3=150 ft Distance: >300' Walk 10 feet (QC): 6 Walk 10ft-Uneven Surface(QC): 6 Walk 50ft with 2 Turns (QC): 6 Walk 150 ft (QC): 6 Gait Level of Assist: 6 Gait Assistive Device: None, FWW, Cane Single Point Stairs (FIM): 6 (scored a 5) # of Steps: 12 1 Step (curb) (QC): 6 4 Steps (QC): 6 12 Steps (QC): 6 Stairs Level Of Assist: 6 Picking up an Object (QC): 6 (scored a 4) all goals met except noted ones. OT Retirement Goals Retirement Goals Time Frame: Nov 06, 2018 Eating (FIM): 6 (met) Eating (QC): 6 (met) Oral Hygiene (QC): 6 (met) Grooming(FIM): 6 (met) Bathing(FIM): 5 (met) Shower/Bathe Self (QC): 5 (met) Upper Body Dressing(FIM): 6 (met) Upper Body Dressing (QC): 6 (met) Lower Body Dressing(FIM): 6 (met) Lower Body Dressing (QC): 6 (met) On/Off Footwear (QC): 6 (met) Toileting(FIM): 6 (m) Toileting Hygiene (QC): 6 (met) Transfers (B,C,W/C) (FIM): 6 (met) Toilet/Commode Transfer(FIM): 6 (met) Toilet/Commode Transfer (QC): 6 (met) Shower Transfer(FIM): 5 (met) Additional Goals: 1-Demonstrate ADL Tasks, 2-Verbalize Understanding, 3- ImproveStrength/Melba 1=Demonstrate adherence to instructed precautions during ADL tasks. 2=Patient will verbalize/demonstrate understanding of assistive devices/ modifications for ADL. 3=Patient will improve strength/tolerance for activity to enable patient to perform ADL's. Speech Television Technician Goals Retirement Goals Patient will improve short term memory, problem solving and sequencing tasks for personal safety and independence. Met Patient will safely consume the least restrictive diet without s/s of aspiration. Met ALESSIA PADILLA PT Oct 29, 2018 09:34
== END 2018-10-28 13:35 | disposition home health service (06) | DRG 556 ==
PROVIDERS: ADMIT Internal Medicine; ATTEND Internal Medicine
PROC: 0TJB8ZZ Inspection of Bladder, Via Natural or Artificial Opening Endoscopic (ICD-10-PCS; principal; 2018-10-24 08:46)
DX: R29.898 Other symptoms and signs involving the musculoskeletal system (principal); R26.81 Unsteadiness on feet; R29.6 Repeated falls; M48.061 Spinal stenosis, lumbar region without neurogenic claudication; M51.36 Other intervertebral disc degeneration, lumbar region; R42 Dizziness and giddiness; C61 Malignant neoplasm of prostate; C79.11 Secondary malignant neoplasm of bladder; C78.5 Secondary malignant neoplasm of large intestine and rectum; C78.01 Secondary malignant neoplasm of right lung; K22.10 Ulcer of esophagus without bleeding; R33.9 Retention of urine, unspecified; K29.80 Duodenitis without bleeding; K29.70 Gastritis, unspecified, without bleeding; R31.0 Gross hematuria; K59.03 Drug induced constipation; R13.14 Dysphagia, pharyngoesophageal phase; K22.2 Esophageal obstruction; R41.0 Disorientation, unspecified
CPT/HCPCS: 87081; 90471

== ENCOUNTER → 2018-10-25 | Day surgery (SDC) | payer MEDICARE, OTHER ==
[~2018-10-25] MED LIST changes: +ACHD5005 PO; +BETH25TA PO; +HURRICAINE EXT TUBE (BENZOCAINE) XX ONE; +LACTATED RINGERS 1,000 ML IV ONE; +proPOfol 200 MG/20 ML (DIPRIVAN) VIAL IV ONE
--- NOTE | 2018-10-25 15:05 | OPERATIVE REPORT ---
DATE OF SERVICE: 10/25/2018 PREOPERATIVE DIAGNOSIS: Dysphagia. POSTOPERATIVE DIAGNOSES: 1. Duodenitis, questionable ulcers, duodenal ulcers. 2. Gastritis. 3. Hiatal hernia. 4. Esophageal ulcer. PROCEDURE: EGD with biopsy. SURGEON: Albert Schmitt DO BODY TRIMMER: None. ANESTHESIA: IV sedation by the BUTT TRIMMER. SPECIMEN: One biopsy from the duodenum, one biopsy from the antrum and one biopsy from the GE junction. BLOOD LOSS: Scant. FLUIDS: Per anesthesia. POSTOPERATIVE CONDITION: Stable. INDICATION FOR PROCEDURE: The patient is an 82-year-old male, who has been having some dysphagia and trouble swallowing that had only been going on for 3 weeks, needed a workup. FINDINGS: The patient had duodenitis with questionable ulcers. He also had some gastritis as well as a small hiatal hernia and esophagitis as well as a very long esophageal ulcer. Pictures were taken of all of this. PROCEDURE NOTE: After informed consent was obtained, the patient was brought to the endoscopy suite, placed in the bed in the left lateral decubitus position. He was administered IV sedation by the BUTT TRIMMER. We then monitored his vitals the entire time, heart rate, blood pressure, pulse ox and the scope was inserted down through the esophagus and down into the stomach, pushed down towards the antrum and into the duodenum. The duodenum was very inflamed, looked like there were some ulcers, did a biopsy here, pulled back into the antrum, saw some more gastritis and did a biopsy here as well. Retroflexed to look at the rest of the stomach, saw a small hiatal hernia and then pulled the scope back into the GE junction, looked like there was some esophagitis, took a picture and then just above the GE junction, there is a very long, probably 4 to 5 cm long ulcer. Pictures were taken of this. This looks like it may have been caused by some food or pill or something and elected not to biopsy this just to be safe and then pulled the scope up the rest of the esophagus, did not see any other obvious pathology and out the mouth. The patient tolerated the procedure and recovered in the endoscopy suite. Job ID: [id number] DocumentID: [id number] Dictated Date: 10/25/2018 12:17:21 [employer]anchise Sales Director Date: 10/25/2018 15:04:24 Dictated By: ALBERT SCHMITT DO
== END ==
LOC: ENDO 10:26
PROVIDERS: ATTEND Surgery
DX: K22.10 Ulcer of esophagus without bleeding (principal); K21.9 Gastro-esophageal reflux disease without esophagitis; K44.9 Diaphragmatic hernia without obstruction or gangrene; K29.80 Duodenitis without bleeding; K26.9 Duodenal ulcer, unspecified as acute or chronic, without hemorrhage or perforation; K29.50 Unspecified chronic gastritis without bleeding; C61 Malignant neoplasm of prostate; C79.11 Secondary malignant neoplasm of bladder; Z87.891 Personal history of nicotine dependence; Z79.82 Long term (current) use of aspirin; Z79.899 Other long term (current) drug therapy

== ENCOUNTER 2019-01-01 11:13 | Outpatient (RCR) | payer MEDICARE, OTHER ==
[~2019-01-01 11:13] MED LIST changes: -HURRICAINE EXT TUBE (BENZOCAINE) XX ONE; -LACTATED RINGERS 1,000 ML IV ONE; -proPOfol 200 MG/20 ML (DIPRIVAN) VIAL IV ONE
[2019-01-07] MEDS ORDERED: LEUP7.5S2 SQ (10:38)
== END 2019-02-06 15:36 | disposition home or self-care (01) ==
PROVIDERS: ATTEND Internal Medicine
DX: R53.81 Other malaise (principal); C61 Malignant neoplasm of prostate; M48.00 Spinal stenosis, site unspecified

== ENCOUNTER → 2019-01-02 | Outpatient (CLI) | payer MEDICARE, OTHER ==
[~2019-01-02] MED LIST changes: +BARIUM SUSPENSION 2.1% (VANILLA SILQ) 450 ML PO ONE; +CATHETER FLUSH 10 ML SYR IV PRN; +HOLD METFORMIN - RECEIVED CONTRAST 20 ML VIAL IV SCH; +IOHEXOL 350 MG/ML 100 ML (OMNIPAQUE 350) VIAL IV ONE
--- NOTE | 2019-01-02 12:34 | Diagnostic Imaging Report ---
PROCEDURE: CT chest, abdomen, and pelvis with contrast. TECHNIQUE: Multiple contiguous axial images were obtained through the chest, abdomen, and pelvis after the administration of intravenous contrast. Auto Exposure Controls were utilized during the CT exam to meet ALARA standards for radiation dose reduction. INDICATION: Prostate carcinoma. Difficulty urinating. COMPARISON: Comparison is made with prior CT from 07/08/2018. CT CHEST: No axillary lymphadenopathy is identified. No definite mediastinal or hilar lymphadenopathy is identified. No pericardial or pleural fluid is detected. Previously noted irregular density in the right upper lobe now measures 15 mm x 11 mm compared with 20 mm x 14 mm on prior. Tiny nodule on the right middle lobe is stable approximately 5 mm. There are some calcified nodules in both lungs consistent with granulomas. No new abnormality is detected. IMPRESSION: Decrease in size of right upper lobe mass when compared with study from 07/08/2018. No thoracic lymphadenopathy is detected. CT ABDOMEN AND PELVIS: No discrete liver mass is identified. The gallbladder is unremarkable. No biliary duct dilatation is seen. The pancreas and spleen are unremarkable. No adrenal mass is identified. Cyst in the upper pole of the left kidney is approximately 4.9 cm compared with 4.6 cm on prior. There has been development of a moderate right-sided hydroureteronephrosis. Dilated right ureter is traced into the pelvis where there is soft tissue mass at the right aspect of the bladder base, previously described. This measures approximately 3.4 x 3.5 cm compared with 3.6 x 3.1 cm. This appears very similar. However, this process likely is obstructing the distal right ureter. 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 No central retroperitoneal or mesenteric lymphadenopathy is seen. The small and large bowel loops are normal in caliber. No pelvic lymphadenopathy is seen. There is no free fluid or fluid collection identified. IMPRESSION: Soft tissue mass at the base of the right aspect of the bladder, similar in appearance to the study from 07/08/2018. However, there has been development of moderate right-sided hydroureteronephrosis traced to the pelvis. This lesion likely is obstructing the distal right ureter. No other new abnormality is detected. Dictated by: Dictated on workstation # [id number]
== END ==
LOC: RAD 11:20
PROVIDERS: ATTEND Nurse Practitioner Adult Health
DX: C61 Malignant neoplasm of prostate (principal); C78.5 Secondary malignant neoplasm of large intestine and rectum; C79.51 Secondary malignant neoplasm of bone; R91.8 Other nonspecific abnormal finding of lung field; N32.89 Other specified disorders of bladder; N13.30 Unspecified hydronephrosis
CPT/HCPCS: 71260; 74177

== ENCOUNTER 2019-01-07 09:47 | Emergency (ER) | payer MEDICARE, OTHER ==
[~2019-01-07] VITALS: Ht 170.2 cm; Wt 72.6 kg
[~2019-01-07 09:47] MED LIST changes: -BARIUM SUSPENSION 2.1% (VANILLA SILQ) 450 ML PO ONE; -CATHETER FLUSH 10 ML SYR IV PRN; -HOLD METFORMIN - RECEIVED CONTRAST 20 ML VIAL IV SCH; -IOHEXOL 350 MG/ML 100 ML (OMNIPAQUE 350) VIAL IV ONE
[2019-01-07] MEDS ORDERED: NS IV 500 ML 500 ML IV ONE (10:00)
--- OUTSIDE RECORDS SUMMARY | 2019-01-07 10:02 | XMS REPORT | Continuity of Care Document ---
Author Author [facility] Address Unknown Phone Unavailable Allergies Active Description Code Type Severity Reaction Onset Reported/Identified Relationship to Patient Clinical Status Yes No Known Drug Allergies [id number] Drug Allergy Unknown N/A 12/23/2012 Medications There [...] GALARZA N Ot 185 11/03/2014 CHERRI PENG VP MARKETING Ot 185 11/08/2014 CHERRI PENG VP MARKETING Ot 185 11/11/2014 BJ JOYCE, HALIE Jensen [...] GALARZAAN N Ot 793.7 02/16/2015 CHERRI PENG VP MARKETING Ot 185 02/16/2015 DEL, BOBAN N Ot [...] N Ot 793.7 02/24/2015 CHERRI PENG S VP MARKETING Ot 185 02/24/2015 DEL, BOBAN N Ot [...] N Ot 793.7 02/24/2015 CHERRI PENG S VP MARKETING Ot 185 02/24/2015 DEL, BOBAN N Ot [...] N Ot 793.7 03/02/2015 VITOR PENGAH S VP MARKETING Ot 185 03/02/2015 DEL, BOBAN N Ot [...] N Ot 733.90 03/25/2015 PENG, HILAH S VP MARKETING Ot 185 03/25/2015 PENG, HILAH S VP MARKETING Ot 198.5 03/25/2015 DEL, BOBAN N Ot [...] N Ot 793.7 04/06/2015 PENG, VITORAH S VP MARKETING Ot 185 04/06/2015 DEL, BOBAN N Ot 185 04/06/2015 DEL, BOBAN N Ot 198.5 04/06/2015 DEL, BOBAN N Ot 781.91 04/06/2015 DEL, BOBAN N Ot 185 04/06/2015 DEL, BOBAN N Ot 198.5 04/06/2015 DEL, BOBAN N Ot 733.90 04/06/2015 PENG, VITORAH S VP MARKETING Ot 185 04/06/2015 PENG, VITORAH S VP MARKETING Ot 198.5 04/06/2015 DEL, BOBAN N Ot 185 04/06/2015 DEL, BOBAN N Ot V58.69 04/06/2015 PENG, HILAH S VP MARKETING Ot 185 04/06/2015 PENG, HILAH S VP MARKETING Ot 198.5 04/26/2015 PENG, HILAH S VP MARKETING Ot 185 04/26/2015 PENG, HILAH S VP MARKETING Ot 198.5 05/10/2015 DEL, BOBAN N Ot [...] BOBAN N Ot 793.7 05/26/2015 CHERRI PENG VP MARKETING Ot 185 05/26/2015 DEL, BOBAN N Ot 185 05/26/2015 DEL, BOBAN N Ot 198.5 05/26/2015 DEL, BOBAN N Ot 781.91 05/26/2015 DEL, BOBAN N Ot 185 05/26/2015 DEL, BOBAN N Ot 198.5 05/26/2015 DEL, BOBAN N Ot 733.90 05/26/2015 CEHRRI PENG VP MARKETING Ot 185 05/26/2015 CHERRI PENG VP MARKETING Ot 198.5 05/26/2015 DEL, BOBAN N Ot [...] V58.69 OT MED,LT,CURRENT USE 09/21/2015 CHERRI PENG VP MARKETING Ot C61 09/21/2015 CHERRI PENG VP MARKETING Ot C79.51 09/21/2015 CHERRI PENG VP MARKETING Ot E55.9 09/21/2015 CHERRI PENG VP MARKETING Ot R23.2 09/21/2015 CHERRI PENG S VP MARKETING Ot Z79.899 10/11/2015 CHERRI PENG S VP MARKETING Ot C61 10/11/2015 CHERRI PENG S VP MARKETING Ot C79.51 10/11/2015 CHERRI PENG VP MARKETING Ot E55.9 10/11/2015 CHERRI EPNG S VP MARKETING Ot R23.2 10/11/2015 CHERRI PENG S VP MARKETING Ot Z79.899 10/25/2015 DEL, BOBAN N Ot [...] 11/23/2015 DEL, BOBAN N Ot 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 11/28/2015 DEL, BOBAN N [...] ON RADIOLOGICAL OT 02/10/2016 CHERRI PENG S VP MARKETING Ot 185 MALIGN NEOPL PROSTATE 02/10/2016 DEL, [...] BONE CARTILAGE DIS NOS 02/10/2016 CHERRI PENG VP MARKETING Ot 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 02/10/2016 CHERRI PENG VP MARKETING 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 02/10/2016 CHRISTIAN JOYCE, AKASH Galeano Ot 787.20 DYSPHAGIA, UNSPECIFIED 02/10/2016 CHRISTIAN JOYCE, AKASH Galeano Ot V72.84 EXAM PRE-OPERATIVE NOS 02/10/2016 CHERRI PENG S VP MARKETING Ot C61 MALIGNANT NEOPLASM OF PROSTATE 02/10/2016 CHERRI PENG VP MARKETING Ot C79.51 SECONDARY MALIGNANT NEOPLASM OF BONE 02/10/2016 CHERRI PENG VP MARKETING Ot 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, UNSPECIFIED 02/10/2016 CHERRI PENG VP MARKETING Ot R23.2 FLUSHING 02/10/2016 PENGCHERRI Fernandez S VP MARKETING Ot Z79.899 OTHER RESIDENTIAL (CURRENT) DRUG THERAPY 02/10/2016 DEL BOBAN N Ot C61 MALIGNANT NEOPLASM OF PROSTATE 02/10/2016 DEL, BOBAN N Ot C79.51 SECONDARY MALIGNANT NEOPLASM OF BONE 02/10/2016 DEL BOBAN N Ot Z79.899 OTHER RESIDENTIAL (CURRENT) DRUG THERAPY 02/13/2016 DEL BOBAN N [...] 02/22/2016 DEL, BOBAN N Ot 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 03/01/2016 DEL, BOBAN N [...] ON RADIOLOGICAL OT 03/05/2016 VITOR PENGAH S VP MARKETING Ot 185 MALIGN NEOPL PROSTATE 03/05/2016 DEL [...] CARTILAGE DIS NOS 03/05/2016 CHERRI PENG S VP MARKETING Ot 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 03/05/2016 CHERRI PENG S VP MARKETING 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 03/05/2016 CHRISTIAN JOYCE, AKASH Galeano Ot 787.20 DYSPHAGIA, UNSPECIFIED 03/05/2016 AKASH GONZALES MD Ot V72.84 EXAM PRE-OPERATIVE NOS 03/05/2016 CHERRI PENG S VP MARKETING Ot C61 MALIGNANT NEOPLASM OF PROSTATE 03/05/2016 CHERRI PENG S VP MARKETING Ot C79.51 SECONDARY MALIGNANT NEOPLASM OF BONE 03/05/2016 CHERRI PENG S VP MARKETING Ot 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, UNSPECIFIED 03/05/2016 CHERRI PENG S VP MARKETING Ot R23.2 FLUSHING 03/05/2016 CHERRI PENG S VP MARKETING Ot Z79.899 OTHER RESIDENTIAL (CURRENT) DRUG THERAPY 03/05/2016 BOBBI MATHISAN N [...] 03/05/2016 JESSICA MATHIS N Ot 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 03/13/2016 Ot 788.41 URINARY [...] FINDINGS ON RADIOLOGICAL OT 03/13/2016 CHERRI PENG VP MARKETING Ot 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 03/13/2016 DEL BOBAN N Ot 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 03/13/2016 DELBOBBI GALARZAAN N 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 03/13/2016 JESSICA MATHIS N Ot 781.91 LOSS OF HEIGHT 03/13/2016 BOBBI MATHISAN N Ot 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 03/13/2016 DELBOBBIAN N 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 03/13/2016 BOBBI MATHISAN N Ot 733.90 BONE CARTILAGE DIS NOS 03/13/2016 CHRERI PENG VP MARKETING Ot 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 03/13/2016 CHERRI PENG VP MARKETING 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 03/13/2016 CHRISTIAN JOYCE, AKASH Galeano Ot 787.20 DYSPHAGIA, UNSPECIFIED 03/13/2016 CHRISTIAN JOYCE, AKASH Galeano Ot V72.84 EXAM PRE-OPERATIVE NOS 03/13/2016 PENG, HILAH S VP MARKETING Ot C61 MALIGNANT NEOPLASM OF PROSTATE 03/13/2016 CHERRI PENG VP MARKETING Ot C79.51 SECONDARY MALIGNANT NEOPLASM OF BONE 03/13/2016 CHERRI PENG VP MARKETING Ot 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, UNSPECIFIED 03/13/2016 CHERRI PENG VP MARKETING Ot R23.2 FLUSHING 03/13/2016 CHERRI PENG VP MARKETING Ot Z79.899 OTHER RESIDENTIAL (CURRENT) DRUG THERAPY 03/13/2016 JESSICA MATHIS N Ot C61 MALIGNANT NEOPLASM OF PROSTATE 03/13/2016 JESSICA MATHIS N 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 03/13/2016 DEL JESSICA N Ot C79.51 SECONDARY MALIGNANT NEOPLASM OF BONE 03/13/2016 DELJESSICA N Ot C61 MALIGNANT NEOPLASM OF PROSTATE 03/13/2016 DEL JESSICA N Ot C79.51 SECONDARY MALIGNANT NEOPLASM OF BONE 03/13/2016 JESSICA MATHIS N Ot Z79.899 OTHER RESIDENTIAL (CURRENT) DRUG THERAPY 03/21/2016 Ot 788.41 URINARY [...] FINDINGS ON RADIOLOGICAL OT 03/21/2016 CHERRI PENG VP MARKETING Ot 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 03/21/2016 DELJESSICA [...] BONE CARTILAGE DIS NOS 03/21/2016 PENGCHERRI S VP MARKETING Ot 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 03/21/2016 PENGCHERRI S VP MARKETING 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 03/21/2016 AKASH GONZALES MD Ot 787.20 DYSPHAGIA, UNSPECIFIED 03/21/2016 AKASH GONZALES MD Ot V72.84 EXAM PRE-OPERATIVE NOS 03/21/2016 PENGCHERRI S VP MARKETING Ot C61 MALIGNANT NEOPLASM OF PROSTATE 03/21/2016 PENGVITORAH S VP MARKETING Ot C79.51 SECONDARY MALIGNANT NEOPLASM OF BONE 03/21/2016 CHERRI PENG S VP MARKETING Ot 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, UNSPECIFIED 03/21/2016 CHERRI PENG S VP MARKETING Ot R23.2 FLUSHING 03/21/2016 CHERRI PENG S VP MARKETING Ot 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 03/21/2016 JESSICA MATHIS N [...] 03/21/2016 JESSICA MATHIS N Ot 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 03/22/2016 AKASH GONZALES MD [...] ON RADIOLOGICAL OT 03/23/2016 CHERRI PENG S VP MARKETING Ot 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 03/23/2016 DEL, [...] CARTILAGE DIS NOS 03/23/2016 CHERRI PENG S VP MARKETING Ot 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 03/23/2016 CHERRI PENG S VP MARKETING 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 03/23/2016 AKASH GONZALES MD Ot 787.20 DYSPHAGIA, UNSPECIFIED 03/23/2016 AKASH GONZALES MD Ot V72.84 EXAM PRE-OPERATIVE NOS 03/23/2016 CHERRI PENG VP MARKETING Ot C61 MALIGNANT NEOPLASM OF PROSTATE 03/23/2016 CHERRI PENG VP MARKETING Ot C79.51 SECONDARY MALIGNANT NEOPLASM OF BONE 03/23/2016 CHERRI PENG VP MARKETING Ot 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, UNSPECIFIED 03/23/2016 CHERRI PENG VP MARKETING Ot R23.2 FLUSHING 03/23/2016 CHERRI PENG VP MARKETING Ot Z79.899 OTHER RESIDENTIAL (CURRENT) DRUG THERAPY 03/23/2016 JESSICA MATHIS N [...] 03/23/2016 JESSICA MATHIS N Ot Z79.899 OTHER RESIDENTIAL (CURRENT) DRUG THERAPY 03/27/2016 AKASH GONZALES MD [...] ON RADIOLOGICAL OT 04/03/2016 CHERRI PENG S VP MARKETING Ot 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 04/03/2016 DEL [...] BONE CARTILAGE DIS NOS 04/03/2016 CHERRI PENG VP MARKETING Ot 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 04/03/2016 CHERRI PENG S VP MARKETING 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 04/03/2016 CHRISTIAN JOYCE, AKASH Galeano Ot 787.20 DYSPHAGIA, UNSPECIFIED 04/03/2016 CHRISTIAN JOYCE, AKASH Galeano Ot V72.84 EXAM PRE-OPERATIVE NOS 04/03/2016 CHERRI PENG VP MARKETING Ot C61 MALIGNANT NEOPLASM OF PROSTATE 04/03/2016 CHERRI PENG VP MARKETING Ot C79.51 SECONDARY MALIGNANT NEOPLASM OF BONE 04/03/2016 CHERRI PENG VP MARKETING Ot 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, UNSPECIFIED 04/03/2016 CHERRI PENG VP MARKETING Ot R23.2 FLUSHING 04/03/2016 CHERRI PENG VP MARKETING Ot Z79.899 OTHER RESIDENTIAL (CURRENT) DRUG THERAPY 04/03/2016 DELJESSICA GALARZA N Ot C61 MALIGNANT NEOPLASM OF PROSTATE 04/03/2016 DEL, JESSICA N 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 04/03/2016 DELJESSICA N Ot C79.51 SECONDARY MALIGNANT NEOPLASM OF BONE 04/03/2016 DEL BOBAN N Ot C61 MALIGNANT NEOPLASM OF PROSTATE 04/03/2016 DEL, BOBBIAN N Ot C79.51 SECONDARY MALIGNANT NEOPLASM OF BONE 04/03/2016 DEL BOBBIAN N Ot Z79.899 OTHER RESIDENTIAL (CURRENT) DRUG THERAPY 04/10/2016 Ot 788.41 URINARY [...] FINDINGS ON RADIOLOGICAL OT 04/10/2016 CHERRI PENG VP MARKETING Ot 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 04/10/2016 DELBOBBI [...] BONE CARTILAGE DIS NOS 04/10/2016 CHERRI PENG VP MARKETING Ot 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 04/10/2016 CHERRI PENG VP MARKETING 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 04/10/2016 CHRISTIAN JOYCE, AKASH Galeano Ot 787.20 DYSPHAGIA, UNSPECIFIED 04/10/2016 CHRISTAIN JOYCE, AKASH Galeano Ot V72.84 EXAM PRE-OPERATIVE NOS 04/10/2016 CHERRI PENG VP MARKETING Ot C61 MALIGNANT NEOPLASM OF PROSTATE 04/10/2016 CHERRI PENG VP MARKETING Ot C79.51 SECONDARY MALIGNANT NEOPLASM OF BONE 04/10/2016 CHERRI PENG VP MARKETING Ot 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, UNSPECIFIED 04/10/2016 CHERRI PENG VP MARKETING Ot R23.2 FLUSHING 04/10/2016 CHERRI PENG VP MARKETING Ot 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 04/10/2016 JESSICA MATHIS N [...] 04/10/2016 JESSICA MATHIS N Ot Z79.899 OTHER RESIDENTIAL (CURRENT) DRUG THERAPY 04/12/2016 Ot 788.41 URINARY [...] ON RADIOLOGICAL OT 04/12/2016 CHERRI PENG S VP MARKETING Ot 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 04/12/2016 DEL [...] CARTILAGE DIS NOS 04/12/2016 CHERRI PENG S VP MARKETING Ot 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 04/12/2016 CHERRI PENG VP MARKETING 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 04/12/2016 CHRISTIAN JOYCE, AKASH Galeano Ot 787.20 DYSPHAGIA, UNSPECIFIED 04/12/2016 CHRISTIAN JOYCE, AKASH Galeano Ot V72.84 EXAM PRE-OPERATIVE NOS 04/12/2016 CHERRI PENG VP MARKETING Ot C61 MALIGNANT NEOPLASM OF PROSTATE 04/12/2016 CHERRI PENG VP MARKETING Ot C79.51 SECONDARY MALIGNANT NEOPLASM OF BONE 04/12/2016 CHERRI PENG VP MARKETING Ot 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, UNSPECIFIED 04/12/2016 CHERRI PENG VP MARKETING Ot R23.2 FLUSHING 04/12/2016 CHERRI PENG VP MARKETING Ot Z79.899 OTHER RESIDENTIAL (CURRENT) DRUG THERAPY 04/12/2016 JESSICA MATHIS N [...] 04/12/2016 JESSICA MATHIS N Ot Z79.899 OTHER RESIDENTIAL (CURRENT) DRUG THERAPY 05/04/2016 JESSICA MATHIS N Ot C61 MALIGNANT NEOPLASM OF PROSTATE 05/04/2016 DEL BOBAN N Ot C79.51 SECONDARY MALIGNANT NEOPLASM OF BONE 05/04/2016 JESSICA MATHIS N Ot 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 05/07/2016 Ot 788.41 URINARY [...] FINDINGS ON RADIOLOGICAL OT 05/07/2016 CHERRI PENG VP MARKETING Ot 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 05/07/2016 DEL [...] CARTILAGE DIS NOS 05/07/2016 CHERRI PENG S VP MARKETING Ot 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 05/07/2016 CHERRI PENG S VP MARKETING 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 05/07/2016 CHRISTIAN JOYCE, AKASH Galeano Ot 787.20 DYSPHAGIA, UNSPECIFIED 05/07/2016 CHRISTIAN JOYCE, AKASH Galeano Ot V72.84 EXAM PRE-OPERATIVE NOS 05/07/2016 CHERRI PENG VP MARKETING Ot C61 MALIGNANT NEOPLASM OF PROSTATE 05/07/2016 CHERRI PENG VP MARKETING Ot C79.51 SECONDARY MALIGNANT NEOPLASM OF BONE 05/07/2016 CHERRI PENG VP MARKETING Ot 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, UNSPECIFIED 05/07/2016 CHERRI PENG VP MARKETING Ot R23.2 FLUSHING 05/07/2016 CHERRI PENG VP MARKETING Ot 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 05/07/2016 DELJESSICA GALARZA N [...] 05/07/2016 DEL, BOBAN N Ot Z79.899 OTHER RESIDENTIAL (CURRENT) DRUG THERAPY 05/08/2016 Ot 788.41 URINARY [...] ON RADIOLOGICAL OT 05/08/2016 CHERRI PENG S VP MARKETING Ot 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 05/08/2016 DEL [...] CARTILAGE DIS NOS 05/08/2016 CHERRI PENG S VP MARKETING Ot 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 05/08/2016 CHERRI PENG S VP MARKETING 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 05/08/2016 CHRISTIAN JOYCE, AKASH Galeano Ot 787.20 DYSPHAGIA, UNSPECIFIED 05/08/2016 CHRISTIAN JOYCE, AKASH Galeano Ot V72.84 EXAM PRE-OPERATIVE NOS 05/08/2016 CHERRI PENG S VP MARKETING Ot C61 MALIGNANT NEOPLASM OF PROSTATE 05/08/2016 CHERRI PENG S VP MARKETING Ot C79.51 SECONDARY MALIGNANT NEOPLASM OF BONE 05/08/2016 CHERRI PENG VP MARKETING Ot 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, UNSPECIFIED 05/08/2016 CHERRI PENG S VP MARKETING Ot R23.2 FLUSHING 05/08/2016 CHERRI PENG VP MARKETING Ot Z79.899 OTHER RESIDENTIAL (CURRENT) DRUG THERAPY 05/08/2016 JESSICA MATHIS N [...] 05/08/2016 JESSICA MATHIS N Ot Z79.899 OTHER RESIDENTIAL (CURRENT) DRUG THERAPY 05/11/2016 Ot 788.41 URINARY [...] ON RADIOLOGICAL OT 05/11/2016 CHERRI PENG S VP MARKETING Ot 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 05/11/2016 DEL [...] CARTILAGE DIS NOS 05/11/2016 CHERRI PENG S VP MARKETING Ot 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 05/11/2016 CHERRI PENG S VP MARKETING 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 05/11/2016 CHRISTIAN JOYCE, AKASH Galeano Ot 787.20 DYSPHAGIA, UNSPECIFIED 05/11/2016 CHRISTIAN JOYCE, AKASH Galeano Ot V72.84 EXAM PRE-OPERATIVE NOS 05/11/2016 CHERRI PENG VP MARKETING Ot C61 MALIGNANT NEOPLASM OF PROSTATE 05/11/2016 CHERRI PENG VP MARKETING Ot C79.51 SECONDARY MALIGNANT NEOPLASM OF BONE 05/11/2016 CHERRI PENG VP MARKETING Ot 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, UNSPECIFIED 05/11/2016 CHERRI PENG VP MARKETING Ot R23.2 FLUSHING 05/11/2016 CHERRI PENG VP MARKETING Ot 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 05/11/2016 JESSICA MATHIS N [...] 05/11/2016 JESSICA MATHIS N Ot 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 05/14/2016 CHERRI PENG VP MARKETING Ot C61 MALIGNANT NEOPLASM OF PROSTATE 05/14/2016 CHERRI PENG VP MARKETING Ot C79.51 SECONDARY MALIGNANT NEOPLASM OF BONE 05/14/2016 CHERRI PENG VP MARKETING Ot Z79.899 OTHER RESIDENTIAL (CURRENT) DRUG THERAPY 05/29/2016 Ot 788.41 URINARY [...] ON RADIOLOGICAL OT 05/29/2016 CHERRI PENG S VP MARKETING Ot 185 MALIGN NEOPL PROSTATE 05/29/2016 DEL [...] CARTILAGE DIS NOS 05/29/2016 CHERRI PENG S VP MARKETING Ot 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 05/29/2016 CHERRI PENG S VP MARKETING 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 05/29/2016 CHRISTIAN JOYCE, AKASH Galeano Ot 787.20 DYSPHAGIA, UNSPECIFIED 05/29/2016 AKASH GONZALES MD Ot V72.84 EXAM PRE-OPERATIVE NOS 05/29/2016 CHERRI PENG VP MARKETING Ot C61 MALIGNANT NEOPLASM OF PROSTATE 05/29/2016 CHERRI PENG S VP MARKETING Ot C79.51 SECONDARY MALIGNANT NEOPLASM OF BONE 05/29/2016 CHERRI PENG VP MARKETING Ot 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, UNSPECIFIED 05/29/2016 CHERRI PENG S VP MARKETING Ot R23.2 FLUSHING 05/29/2016 CHERRI PENG S VP MARKETING Ot 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 05/29/2016 JESSICA MATHIS N [...] 05/29/2016 DEL BOBAN N Ot 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 05/29/2016 CHERRI PENG S VP MARKETING Ot C61 MALIGNANT NEOPLASM OF PROSTATE 05/29/2016 CHERRI PENG S VP MARKETING Ot C79.51 SECONDARY MALIGNANT NEOPLASM OF BONE 05/29/2016 CHERRI PENG VP MARKETING Ot Z79.899 OTHER RESIDENTIAL (CURRENT) DRUG THERAPY 06/05/2016 JESSICA MATHIS N Ot C61 MALIGNANT NEOPLASM OF PROSTATE 06/05/2016 BOBBI MATHISAN N Ot C79.51 SECONDARY MALIGNANT NEOPLASM OF BONE 06/05/2016 JESSICA MATHIS N Ot Z79.899 OTHER RESIDENTIAL (CURRENT) DRUG THERAPY 06/05/2016 Ot 788.41 URINARY [...] ON RADIOLOGICAL OT 06/05/2016 CHERRI PENG S VP MARKETING Ot 185 MALIGN NEOPL PROSTATE 06/05/2016 DEL, [...] CARTILAGE DIS NOS 06/05/2016 CHERRI PENG S VP MARKETING Ot 185 MALIGN NEOPL PROSTATE 06/05/2016 CHERRI PENG S VP MARKETING 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 06/05/2016 CHRISTIAN JOYCE, AKASH Galeano Ot 787.20 DYSPHAGIA, UNSPECIFIED 06/05/2016 CHRISTIAN JOYCE, AKASH Galeano Ot V72.84 EXAM PRE-OPERATIVE NOS 06/05/2016 CHERRI PENG VP MARKETING Ot C61 MALIGNANT NEOPLASM OF PROSTATE 06/05/2016 CHERRI PENG VP MARKETING Ot C79.51 SECONDARY MALIGNANT NEOPLASM OF BONE 06/05/2016 CHERRI PENG VP MARKETING Ot 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, UNSPECIFIED 06/05/2016 CHERRI PENG VP MARKETING Ot R23.2 FLUSHING 06/05/2016 CHERRI PENG VP MARKETING Ot 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 06/05/2016 JESSICA MATHIS N [...] 06/05/2016 JESSICA MATHIS N Ot Z79.899 OTHER RESIDENTIAL (CURRENT) DRUG THERAPY 06/05/2016 CHERRI PENG VP MARKETING Ot C61 MALIGNANT NEOPLASM OF PROSTATE 06/05/2016 CHERRI PENG VP MARKETING Ot C79.51 SECONDARY MALIGNANT NEOPLASM OF BONE 06/05/2016 CHERRI PENG VP MARKETING Ot Z79.899 OTHER RESIDENTIAL (CURRENT) DRUG THERAPY 06/05/2016 JESSICA MATHIS N Ot C61 MALIGNANT NEOPLASM OF PROSTATE 06/05/2016 JESSICA MATHIS N Ot C79.51 SECONDARY MALIGNANT NEOPLASM OF BONE 06/05/2016 JESSICA MATHIS N Ot Z79.899 OTHER RESIDENTIAL (CURRENT) DRUG THERAPY 06/05/2016 JESSICA MATHIS N Ot C61 MALIGNANT NEOPLASM OF PROSTATE 06/05/2016 DELJESSICA GALARZA N Ot C79.51 SECONDARY MALIGNANT NEOPLASM OF BONE 06/05/2016 DELJESSICA GALARZA N Ot 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 06/06/2016 CHERRI PENG VP MARKETING Ot C61 MALIGNANT NEOPLASM OF PROSTATE 06/06/2016 CHERRI PENG VP MARKETING Ot C79.51 SECONDARY MALIGNANT NEOPLASM OF BONE 06/06/2016 CHERRI PENG VP MARKETING Ot 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 06/15/2016 Ot 788.41 URINARY [...] FINDINGS ON RADIOLOGICAL OT 06/15/2016 CHERRI PENG VP MARKETING Ot 185 MALIGN NEOPL PROSTATE 06/15/2016 DEL [...] CARTILAGE DIS NOS 06/15/2016 CHERRI PENG S VP MARKETING Ot 185 MALIGN NEOPL PROSTATE 06/15/2016 CHERRI PENG S VP MARKETING 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 06/15/2016 CHRISTIAN JOYCE, AKASH Galeano Ot 787.20 DYSPHAGIA, UNSPECIFIED 06/15/2016 AKASH GONZALES MD Ot V72.84 EXAM PRE-OPERATIVE NOS 06/15/2016 CHERRI PENG VP MARKETING Ot C61 MALIGNANT NEOPLASM OF PROSTATE 06/15/2016 CHERRI PENG VP MARKETING Ot C79.51 SECONDARY MALIGNANT NEOPLASM OF BONE 06/15/2016 CHERRI PENG VP MARKETING Ot 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, UNSPECIFIED 06/15/2016 CHERRI PENG VP MARKETING Ot R23.2 FLUSHING 06/15/2016 CHERRI PENG VP MARKETING Ot Z79.899 OTHER RESIDENTIAL (CURRENT) DRUG THERAPY 06/15/2016 JESSICA MATHIS N [...] 06/15/2016 JESSICA MATHIS N Ot Z79.899 OTHER RESIDENTIAL (CURRENT) DRUG THERAPY 06/15/2016 PENGCHERRI S VP MARKETING Ot C61 MALIGNANT NEOPLASM OF PROSTATE 06/15/2016 PENGCHERRI S VP MARKETING Ot C79.51 SECONDARY MALIGNANT NEOPLASM OF BONE 06/15/2016 PENGVITORAH S VP MARKETING Ot 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 07/23/2016 Ot 788.41 URINARY [...] Ot 185 MALIGN NEOPL PROSTATE 07/23/2016 JESSICA MAHTIS N Ot 793.7 NOSP (ABN) FINDINGS ON RADIOLOGICAL OT 07/23/2016 PENGCHERRI S VP MARKETING Ot 185 MALIGN NEOPL PROSTATE 07/23/2016 DELBOBBIAN N Ot 185 MALIGN NEOPL PROSTATE 07/23/2016 DEL BOBAN N 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 07/23/2016 BOBBI MATHISAN N Ot 781.91 LOSS OF HEIGHT 07/23/2016 DELBOBBIAN N Ot 185 MALIGN NEOPL PROSTATE 07/23/2016 DEL BOBAN N 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 07/23/2016 DELJESSICA GALARZA N Ot 733.90 BONE CARTILAGE DIS NOS 07/23/2016 CHERRI PENG VP MARKETING Ot 185 MALIGN NEOPL PROSTATE 07/23/2016 CHERRI PENG S VP MARKETING 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 07/23/2016 AKASH GONZALES MD Ot 787.20 DYSPHAGIA, UNSPECIFIED 07/23/2016 AKASH GONZALES MD Ot V72.84 EXAM PRE-OPERATIVE NOS 07/23/2016 CHERRI PENG S VP MARKETING Ot C61 MALIGNANT NEOPLASM OF PROSTATE 07/23/2016 CHERRI PENG S VP MARKETING Ot C79.51 SECONDARY MALIGNANT NEOPLASM OF BONE 07/23/2016 CHERRI PENG VP MARKETING Ot 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, UNSPECIFIED 07/23/2016 CHERRI PENG S VP MARKETING Ot R23.2 FLUSHING 07/23/2016 CHERRI PENG S VP MARKETING Ot Z79.899 OTHER RESIDENTIAL (CURRENT) DRUG THERAPY 07/23/2016 BOBBI MATHISLUZ N [...] 07/23/2016 DELJESSICA GALARZA N Ot 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 07/23/2016 CHERRI PENG S VP MARKETING Ot C61 MALIGNANT NEOPLASM OF PROSTATE 07/23/2016 CHERRI PENG S VP MARKETING Ot C79.51 SECONDARY MALIGNANT NEOPLASM OF BONE 07/23/2016 CHERRI PENG S VP MARKETING Ot Z79.899 OTHER RESIDENTIAL (CURRENT) DRUG THERAPY 07/23/2016 DELBOBBIAN N Ot C61 MALIGNANT NEOPLASM OF PROSTATE 07/23/2016 DELBOBBIAN N Ot C79.51 SECONDARY MALIGNANT NEOPLASM OF BONE 07/23/2016 DELJESSICA GALARZA N Ot Z79.899 OTHER RESIDENTIAL (CURRENT) DRUG THERAPY 08/24/2016 JESSICA MATHIS N Ot C61 MALIGNANT NEOPLASM OF PROSTATE 08/24/2016 DELJESSICA GALARZA N Ot C79.51 SECONDARY MALIGNANT NEOPLASM OF BONE 08/24/2016 DELBOBBIAN N Ot Z79.899 OTHER RESIDENTIAL (CURRENT) DRUG THERAPY 09/14/2016 PENGCHERRI Fernandez VP MARKETING Ot 185 MALIGN NEOPL PROSTATE 09/14/2016 CHERRI PENG VP MARKETING 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 10/11/2016 DEL BOBAN N Ot C61 MALIGNANT NEOPLASM OF PROSTATE 10/11/2016 DEL BOBAN N Ot C79.51 SECONDARY MALIGNANT NEOPLASM OF BONE 10/11/2016 DEL BOBAN N Ot 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 10/24/2016 DEL BOBAN N Ot C61 MALIGNANT NEOPLASM OF PROSTATE 10/24/2016 DEL BOBAN N Ot C79.51 SECONDARY MALIGNANT NEOPLASM OF BONE 10/24/2016 DEL BOBAN N Ot 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 11/21/2016 DEL BOBAN N Ot C61 MALIGNANT NEOPLASM OF PROSTATE 11/21/2016 DEL BOBAN N Ot C79.51 SECONDARY MALIGNANT NEOPLASM OF BONE 11/21/2016 DEL BOBAN N Ot 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 11/22/2016 DEL, BOBAN N Ot C61 MALIGNANT NEOPLASM OF PROSTATE 11/22/2016 DEL BOBAN N Ot C79.51 SECONDARY MALIGNANT NEOPLASM OF BONE 11/22/2016 DEL BOBAN N Ot Z79.899 OTHER RESIDENTIAL (CURRENT) DRUG THERAPY 02/20/2017 DEL, BOBAN N Ot C61 MALIGNANT NEOPLASM OF PROSTATE 02/20/2017 DEL, BOBAN N Ot C79.51 SECONDARY MALIGNANT NEOPLASM OF BONE 02/20/2017 DEL BOBAN N Ot Z79.899 OTHER RESIDENTIAL (CURRENT) DRUG THERAPY 03/12/2017 DEL, BOBAN N Ot C61 MALIGNANT NEOPLASM OF PROSTATE 03/12/2017 DEL, BOBAN N Ot C79.51 SECONDARY MALIGNANT NEOPLASM OF BONE 03/12/2017 DEL, BOBAN N Ot 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 03/13/2017 DEL, BOBAN N Ot C61 MALIGNANT NEOPLASM OF PROSTATE 03/13/2017 DEL, BOBAN N Ot C79.51 SECONDARY MALIGNANT NEOPLASM OF BONE 03/13/2017 JESSICA MATHIS N Ot 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 03/14/2017 JESSICA MATHIS N Ot C61 MALIGNANT NEOPLASM OF PROSTATE 03/14/2017 JESSICA MATHIS N Ot C79.51 SECONDARY MALIGNANT NEOPLASM OF BONE 03/14/2017 JESSICA MATHIS N Ot Z79.899 OTHER RESIDENTIAL (CURRENT) DRUG THERAPY 03/14/2017 JESSICA MATHIS N Ot C61 MALIGNANT NEOPLASM OF PROSTATE 03/14/2017 JESSICA MATHIS N Ot C79.51 SECONDARY MALIGNANT NEOPLASM OF BONE 03/14/2017 JESSICA MATHIS N Ot 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 03/19/2017 JESSICA MATHIS N Ot C61 MALIGNANT NEOPLASM OF PROSTATE 03/19/2017 JESSICA MATHIS N Ot C79.51 SECONDARY MALIGNANT NEOPLASM OF BONE 03/19/2017 JESSICA MATHIS N Ot 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 04/04/2017 HALIE LORENZO MD [...] FINDINGS ON RADIOLOGICAL OT 04/11/2017 CHERRI PENG VP MARKETING Ot 185 MALIGN NEOPL PROSTATE 04/11/2017 DEL [...] BONE CARTILAGE DIS NOS 04/11/2017 CHERRI PENG VP MARKETING Ot 185 MALIGN NEOPL PROSTATE 04/11/2017 CHERRI PENG VP MARKETING 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 04/11/2017 CHRISTIAN JOYCE, AKASH Gaelano Ot 787.20 DYSPHAGIA, UNSPECIFIED 04/11/2017 CHRISTIAN JOYCE, AKASH Galeano Ot V72.84 EXAM PRE-OPERATIVE NOS 04/11/2017 CHERRI PENG VP MARKETING Ot C61 MALIGNANT NEOPLASM OF PROSTATE 04/11/2017 CHERRI PENG VP MARKETING Ot C79.51 SECONDARY MALIGNANT NEOPLASM OF BONE 04/11/2017 CHERRI PENG VP MARKETING Ot 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, UNSPECIFIED 04/11/2017 CHERRI PENG VP MARKETING Ot R23.2 FLUSHING 04/11/2017 CHERRI PENG S VP MARKETING Ot Z79.899 OTHER RESIDENTIAL (CURRENT) DRUG THERAPY 04/11/2017 DEL JESSICA N Ot C61 MALIGNANT NEOPLASM OF PROSTATE 04/11/2017 DELJESSICA N 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 04/11/2017 DELJESSICA N Ot C79.51 SECONDARY MALIGNANT NEOPLASM OF BONE 04/11/2017 CHERRI PENG VP MARKETING Ot C61 MALIGNANT NEOPLASM OF PROSTATE 04/11/2017 CHERRI PENG VP MARKETING Ot C79.51 SECONDARY MALIGNANT NEOPLASM OF BONE 04/11/2017 CHERRI PENG VP MARKETING Ot 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 04/11/2017 DEL JESSICA N Ot C61 MALIGNANT NEOPLASM OF PROSTATE 04/11/2017 DEL JESSICA N Ot C79.51 SECONDARY MALIGNANT NEOPLASM OF BONE 04/11/2017 DEL JESSICA N Ot 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 04/12/2017 DEL JESSICA N Ot C61 MALIGNANT NEOPLASM OF PROSTATE 04/12/2017 DEL JESSICA N Ot C79.51 SECONDARY MALIGNANT NEOPLASM OF BONE 04/12/2017 DELJESSICA N Ot Z79.899 OTHER RESIDENTIAL (CURRENT) DRUG THERAPY 05/06/2017 DELJESSICA N Ot C61 MALIGNANT NEOPLASM OF PROSTATE 05/06/2017 DEL BOBAN N Ot C79.51 SECONDARY MALIGNANT NEOPLASM OF BONE 05/06/2017 DEL BOBAN N Ot Z79.899 OTHER RESIDENTIAL (CURRENT) DRUG THERAPY 06/26/2017 DEL BOBAN N Ot C61 MALIGNANT NEOPLASM OF PROSTATE 06/26/2017 DEL BOBAN N Ot C79.51 SECONDARY MALIGNANT NEOPLASM OF BONE 06/26/2017 DEL BOBAN N Ot 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 07/10/2017 DEL BOBAN N Ot C61 MALIGNANT NEOPLASM OF PROSTATE 07/10/2017 DEL BOBAN N Ot C79.51 SECONDARY MALIGNANT NEOPLASM OF BONE 07/10/2017 DEL BOBLUZ N Ot 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 08/02/2017 DEL BOBLUZ N Ot C61 MALIGNANT NEOPLASM OF PROSTATE 08/02/2017 DEL BOBAN N Ot C79.51 SECONDARY MALIGNANT NEOPLASM OF BONE 08/02/2017 DEL BOBAN N Ot Z79.899 OTHER RESIDENTIAL (CURRENT) DRUG THERAPY 09/06/2017 DELJESSICA N Ot C61 MALIGNANT NEOPLASM OF PROSTATE 09/06/2017 DEL BOBAN N Ot C79.51 SECONDARY MALIGNANT NEOPLASM OF BONE 09/06/2017 DEL BOBAN N Ot Z79.899 OTHER RESIDENTIAL (CURRENT) DRUG THERAPY 09/30/2017 DEL BOBLUZ N Ot C61 MALIGNANT NEOPLASM OF PROSTATE 09/30/2017 DEL BOBAN N Ot C79.51 SECONDARY MALIGNANT NEOPLASM OF BONE 09/30/2017 DEL BOBAN N Ot Z79.899 OTHER RESIDENTIAL (CURRENT) DRUG THERAPY 10/30/2017 DEL BOBAN N Ot C61 MALIGNANT NEOPLASM OF PROSTATE 10/30/2017 DEL BOBAN N Ot C79.51 SECONDARY MALIGNANT NEOPLASM OF BONE 10/30/2017 DEL BOBAN N Ot Z79.899 OTHER RESIDENTIAL (CURRENT) DRUG THERAPY 10/31/2017 DEL BOBAN N Ot C61 MALIGNANT NEOPLASM OF PROSTATE 10/31/2017 DEL, BOBAN N Ot C79.51 SECONDARY MALIGNANT NEOPLASM OF BONE 10/31/2017 JESSICA MATHIS N Ot 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 11/21/2017 Ot 185 MALIGN [...] FINDINGS ON RADIOLOGICAL OT 11/21/2017 CHERRI PENG VP MARKETING Ot 185 MALIGN NEOPL PROSTATE 11/21/2017 DEL [...] BONE CARTILAGE DIS NOS 11/21/2017 CHERRI PENG VP MARKETING Ot 185 MALIGN NEOPL PROSTATE 11/21/2017 CHERRI PENG VP MARKETING 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 11/21/2017 CHRISTIAN JOYCE, AKASH Galeano Ot 787.20 DYSPHAGIA, UNSPECIFIED 11/21/2017 CHRISTIAN JOYCE, AKASH Galeano Ot V72.84 EXAM PRE-OPERATIVE NOS 11/21/2017 CHERRI PENG VP MARKETING Ot C61 MALIGNANT NEOPLASM OF PROSTATE 11/21/2017 CHERRI PENG VP MARKETING Ot C79.51 SECONDARY MALIGNANT NEOPLASM OF BONE 11/21/2017 CHERRI PENG VP MARKETING Ot 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, UNSPECIFIED 11/21/2017 PENG, HILAH S VP MARKETING Ot R23.2 FLUSHING 11/21/2017 PENGCHERRI Fernandez S VP MARKETING Ot 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 11/21/2017 DELJESSICA GALARZA N Ot C61 MALIGNANT NEOPLASM OF PROSTATE 11/21/2017 DEL, BOBAN N 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 11/21/2017 DEL BOBAN N Ot C79.51 SECONDARY MALIGNANT NEOPLASM OF BONE 11/21/2017 CHERRI PENG S VP MARKETING Ot C61 MALIGNANT NEOPLASM OF PROSTATE 11/21/2017 PENGVITORAH S VP MARKETING Ot C79.51 SECONDARY MALIGNANT NEOPLASM OF BONE 11/21/2017 PENGCHERRI S VP MARKETING Ot Z79.899 OTHER RESIDENTIAL (CURRENT) DRUG THERAPY 01/03/2018 DELJESSICA N Ot C61 MALIGNANT NEOPLASM OF PROSTATE 01/03/2018 DEL BOBAN N Ot C79.51 SECONDARY MALIGNANT NEOPLASM OF BONE 01/03/2018 DEL, BOBAN N Ot 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 01/29/2018 DEL BOBLUZ N Ot C61 MALIGNANT NEOPLASM OF PROSTATE 01/29/2018 DEL BOBAN N Ot C79.51 SECONDARY MALIGNANT NEOPLASM OF BONE 01/29/2018 DEL BOBAN N Ot Z79.899 OTHER RESIDENTIAL (CURRENT) DRUG THERAPY 02/19/2018 DEL, BOBAN N Ot C61 MALIGNANT NEOPLASM OF PROSTATE 02/19/2018 DEL BOBAN N Ot C79.51 SECONDARY MALIGNANT NEOPLASM OF BONE 02/19/2018 DEL BOBAN N Ot 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 02/20/2018 DEL, BOBAN N Ot C61 MALIGNANT NEOPLASM OF PROSTATE 02/20/2018 DEL, BOBAN N Ot C79.51 SECONDARY MALIGNANT NEOPLASM OF BONE 02/20/2018 DEL, BOBAN N Ot Z79.899 OTHER RESIDENTIAL (CURRENT) DRUG THERAPY 03/17/2018 DEL, BOBAN N Ot C61 MALIGNANT NEOPLASM OF PROSTATE 03/17/2018 DEL, BOBAN N Ot C79.51 SECONDARY MALIGNANT NEOPLASM OF BONE 03/17/2018 DEL, BOBAN N Ot Z79.899 OTHER RESIDENTIAL (CURRENT) DRUG THERAPY 04/04/2018 DEL, BOBAN N Ot C61 MALIGNANT NEOPLASM OF PROSTATE 04/04/2018 DELBOBBIAN N Ot C79.51 SECONDARY MALIGNANT NEOPLASM OF BONE 04/04/2018 DELBOBBIAN N Ot Z79.899 OTHER RESIDENTIAL (CURRENT) DRUG THERAPY 06/11/2018 DEL BOBAN N Ot C61 MALIGNANT NEOPLASM OF PROSTATE 06/11/2018 DEL BOBAN N Ot C79.51 SECONDARY MALIGNANT NEOPLASM OF BONE 06/11/2018 DEL BOBAN N Ot 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 06/26/2018 DEL BOBAN N Ot C61 MALIGNANT NEOPLASM OF PROSTATE 06/26/2018 DEL BOBAN N Ot C79.51 SECONDARY MALIGNANT NEOPLASM OF BONE 06/26/2018 DEL, BOBAN N Ot Z79.899 OTHER RESIDENTIAL (CURRENT) DRUG THERAPY 06/27/2018 DEL BOBAN N Ot C61 MALIGNANT NEOPLASM OF PROSTATE 06/27/2018 DEL BOBAN N Ot C79.51 SECONDARY MALIGNANT NEOPLASM OF BONE 06/27/2018 DEL BOBAN N Ot Z79.899 OTHER RESIDENTIAL (CURRENT) DRUG THERAPY 07/02/2018 DEL BOBAN N Ot C61 MALIGNANT NEOPLASM OF PROSTATE 07/02/2018 DEL BOBAN N Ot C79.51 SECONDARY MALIGNANT NEOPLASM OF BONE 07/02/2018 DEL BOBAN N Ot Z79.899 OTHER RESIDENTIAL (CURRENT) DRUG THERAPY 07/02/2018 CHRISTIAN JOYCE, AKASH [...] FINDINGS ON RADIOLOGICAL OT 07/02/2018 CHERRI PENG VP MARKETING Ot 185 MALIGN NEOPL PROSTATE 07/02/2018 DEL [...] BONE CARTILAGE DIS NOS 07/02/2018 CHERRI PENG VP MARKETING Ot 185 MALIGN NEOPL PROSTATE 07/02/2018 CHERRI PENG VP MARKETING 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 07/02/2018 CHRISTIAN JOYCE, AKASH Galeano Ot 787.20 DYSPHAGIA, UNSPECIFIED 07/02/2018 AKASH GONZALES MD Ot V72.84 EXAM PRE-OPERATIVE NOS 07/02/2018 CHERRI PENG VP MARKETING Ot C61 MALIGNANT NEOPLASM OF PROSTATE 07/02/2018 CHERRI PENG S VP MARKETING Ot C79.51 SECONDARY MALIGNANT NEOPLASM OF BONE 07/02/2018 CHERRI PENG VP MARKETING Ot 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, UNSPECIFIED 07/02/2018 CHERRI PENG S VP MARKETING Ot R23.2 FLUSHING 07/02/2018 CHERRI PENG S VP MARKETING Ot Z79.899 OTHER RESIDENTIAL (CURRENT) DRUG THERAPY 07/02/2018 JESSICA MATHIS N Ot C61 MALIGNANT NEOPLASM OF PROSTATE 07/02/2018 JESSICA MATHIS N 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 07/02/2018 JESSICA MATHIS N Ot C79.51 SECONDARY MALIGNANT NEOPLASM OF BONE 07/02/2018 CHERRI PENG S VP MARKETING Ot C61 MALIGNANT NEOPLASM OF PROSTATE 07/02/2018 CHERRI PENG S VP MARKETING Ot C79.51 SECONDARY MALIGNANT NEOPLASM OF BONE 07/02/2018 CHERRI PENG S VP MARKETING Ot Z79.899 OTHER RESIDENTIAL (CURRENT) DRUG THERAPY 07/02/2018 BALDO WHEELER DC [...] 07/13/2018 AMOL PIERSON MD Ot Z79.899 OTHER RESIDENTIAL (CURRENT) DRUG THERAPY 07/15/2018 AMOL PIERSON MD Ot C61 MALIGNANT NEOPLASM OF PROSTATE 07/15/2018 AMOL PIERSON MD Ot C79.51 SECONDARY MALIGNANT NEOPLASM OF BONE 07/15/2018 AMOL PIERSON MD Ot Z79.899 OTHER RESIDENTIAL (CURRENT) DRUG THERAPY 07/23/2018 ABLDO WHEELER DC Ot 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 [...] FINDINGS ON RADIOLOGICAL OT 08/05/2018 CHERRI PENG VP MARKETING Ot 185 MALIGN NEOPL PROSTATE 08/05/2018 BOBBI [...] CARTILAGE DIS NOS 08/05/2018 PENG, HILAH S VP MARKETING Ot 185 MALIGN NEOPL PROSTATE 08/05/2018 GINETTE CHERRI S VP MARKETING 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 08/05/2018 CHRISTIAN JOYCE, AKASH Galeano Ot 787.20 DYSPHAGIA, UNSPECIFIED 08/05/2018 CHRISTIAN JOYCE, AKASH Galeano Ot V72.84 EXAM PRE-OPERATIVE NOS 08/05/2018 CHERRI PENG S VP MARKETING Ot C61 MALIGNANT NEOPLASM OF PROSTATE 08/05/2018 CHERRI PENG S VP MARKETING Ot C79.51 SECONDARY MALIGNANT NEOPLASM OF BONE 08/05/2018 VITOR PENGNEYMAR S VP MARKETING Ot 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, UNSPECIFIED 08/05/2018 VITOR PENGNEYMAR S VP MARKETING Ot R23.2 FLUSHING 08/05/2018 VITOR PENGNEYMAR S VP MARKETING Ot 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 08/05/2018 JESSICA MATHIS N Ot C61 MALIGNANT NEOPLASM OF PROSTATE 08/05/2018 DELJESSICA N 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 08/05/2018 JESSICA MATHIS N Ot C79.51 SECONDARY MALIGNANT NEOPLASM OF BONE 08/05/2018 CHERRI PENG Jim VP MARKETING Ot C61 MALIGNANT NEOPLASM OF PROSTATE 08/05/2018 GINETTE CHERRI Fernandez VP MARKETING Ot C79.51 SECONDARY MALIGNANT NEOPLASM OF BONE 08/05/2018 GINETTE CHERRI Fernandez VP MARKETING Ot 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 08/05/2018 BALDO WHEELER DC Ot 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 OR RADICULOPA 08/05/2018 BALDO WHEELER DC, Ot M47.816 SPONDYLOSIS W/O MYELOPATHY OR RADICULOPA 08/05/2018 BALDO WHELEER DC Ot 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], THO 08/05/2018 BALDO WHEELER DC Ot M51.37 OTHER INTERVERTEBRAL DISC DEGENERATION, 08/05/2018 BALDO WHEELER DC, Ot 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 08/05/2018 BALDO WHEELER DC Ot 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 08/05/2018 WHEELER DC, BALDO J Ot 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 08/05/2018 DANGELO JOYCE, AMOL Ot C61 MALIGNANT NEOPLASM OF PROSTATE 08/05/2018 [...] NEOPLASM OF LARGE IN 08/19/2018 AMOL PIERSON MD Ot C79.51 SECONDARY MALIGNANT NEOPLASM OF BONE 08/22/2018 AKASH GONZALES MD Ot R31.9 HEMATURIA, UNSPECIFIED 08/22/2018 AKASH GONZALES MD Ot R82.90 UNSPECIFIED ABNORMAL FINDINGS IN URINE 09/08/2018 JESSICA MATHIS N Ot C61 MALIGNANT NEOPLASM OF PROSTATE 09/08/2018 DELJESSICA N 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 09/08/2018 JESSICA MATHIS N Ot C79.51 SECONDARY MALIGNANT [...] MD Ot R51 HEADACHE 10/02/2018 JESSICA MATHIS N Ot C61 MALIGNANT NEOPLASM OF PROSTATE 10/02/2018 DELBOBBIAN N 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 10/02/2018 JESSICA MATHIS N Ot C79.51 SECONDARY MALIGNANT NEOPLASM OF BONE 10/20/2018 JESSICA MATHIS N Ot C61 MALIGNANT NEOPLASM OF PROSTATE 10/20/2018 JESSICA MATHIS N 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 10/20/2018 JESSICA MATHIS N Ot C79.51 SECONDARY MALIGNANT NEOPLASM OF BONE 10/21/2018 JESSICA MATHIS Paulino Ot C61 MALIGNANT NEOPLASM OF PROSTATE 10/21/2018 JESSICA MATHIS N 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 10/21/2018 JESSICA MATHIS N Ot C79.51 SECONDARY MALIGNANT NEOPLASM OF BONE 10/23/2018 HALIE LORENZO MD Ot C61 MALIGNANT NEOPLASM OF PROSTATE 10/23/2018 HALIE LORENZO MD 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 10/23/2018 HALIE LORENZO MD Ot 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 10/23/2018 HALIE LORENZO MD Ot M48.061 SPINAL STENOSIS, LUMBAR REGION WITHOUT N 10/23/2018 HALIE LORENZO MD Ot M62.81 MUSCLE WEAKNESS (GENERALIZED) 10/23/2018 HALIE LORENZO MD Ot R33.9 RETENTION OF URINE, UNSPECIFIED 10/23/2018 HALIE LORENZO MD Ot R55 SYNCOPE AND COLLAPSE 10/23/2018 HALEI LORENZO MD Ot 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 10/23/2018 HALIE LORENZO MD Ot Z91.81 HISTORY OF FALLING 10/23/2018 HALIE LORENZO MD Ot Z92.3 PERSONAL HISTORY OF IRRADIATION 2018 NOEL DO BRAYDEN Ot C61 MALIGNANT NEOPLASM OF PROSTATE 2018 NOEL HARO BRAYDEN Ot 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 2018 NOEL HARO BRAYDEN 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 2018 NOEL HARO BRAYDEN Ot 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 2018 NOEL HARO BRAYDEN Ot K22.10 ULCER OF ESOPHAGUS WITHOUT BLEEDING 2018 NOEL DO BRAYDEN Ot K22.2 ESOPHAGEAL OBSTRUCTION 2018 NOEL DO BRAYDEN Ot K29.70 GASTRITIS, UNSPECIFIED, WITHOUT BLEEDING 2018 COHEN DO BRAYDEN Ot K29.80 DUODENITIS WITHOUT BLEEDING 2018 NOEL HARO BRAYDEN Ot K59.03 DRUG INDUCED CONSTIPATION 2018 BRAYDEN COHEN DO Ot M48.061 SPINAL STENOSIS, LUMBAR REGION WITHOUT N 2018 BRAYDEN COHEN DO Ot M51.36 OTHER INTERVERTEBRAL DISC DEGENERATION, 2018 BRAYDEN COHEN DO Ot R13.14 DYSPHAGIA, PHARYNGOESOPHAGEAL PHASE 2018 COHENAARTI HARO BRAYDEN Ot R26.81 UNSTEADINESS ON FEET 2018 BRAYDEN COHEN DO Ot R29.6 REPEATED FALLS 2018 NOEL HARO BRAYDEN Ot R29.898 OTH SYMPTOMS AND SIGNS INVOLVING THE MUS 2018 NOEL HARO BRAYDEN Ot R31.0 GROSS HEMATURIA 2018 BRAYDEN COHEN DO Ot R33.9 RETENTION OF URINE, UNSPECIFIED 2018 NOEL HARO BRAYDEN Ot R41.0 DISORIENTATION, UNSPECIFIED 2018 NOEL HARO BRAYDEN Ot R42 DIZZINESS AND GIDDINESS 10/30/2018 EDGARDO BURNS DO Ot C61 MALIGNANT NEOPLASM OF PROSTATE 10/30/2018 EDGARDO BURNS DO B Ot 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 10/30/2018 EDGARDO BURNS DO Ot K21.9 GASTRO-ESOPHAGEAL REFLUX DISEASE WITHOUT 10/30/2018 EDGARDO BURNS DO Ot K22.10 ULCER OF ESOPHAGUS WITHOUT BLEEDING 10/30/2018 EDGARDO BURNS DO Ot K26.9 DUODENAL ULCER, UNSP ACUTE OR CHRONIC 10/30/2018 EDGARDO BURNS DO Ot K29.50 UNSPECIFIED CHRONIC GASTRITIS WITHOUT BL 10/30/2018 EDGARDO BURNS DO Ot K29.80 DUODENITIS WITHOUT BLEEDING 10/30/2018 EDGARDO BURNS DO Ot K44.9 DIAPHRAGMATIC HERNIA WITHOUT OBSTRUCTION 10/30/2018 EDGARDO BURNS DO Ot Z79.82 GENERAL FOUNDRY 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) USE OF ASPIRIN 10/30/2018 EDGARDO BURNS DO Ot 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 10/30/2018 EDGARDO BURNS DO Ot Z87.891 PERSONAL HISTORY OF NICOTINE DEPENDENCE 11/05/2018 EDGARDO BURNS DO Ot C61 MALIGNANT NEOPLASM OF PROSTATE 11/05/2018 DELMAN DO, EDGARDO B Ot 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 11/05/2018 DELMAN DO, EDGARDO B Ot K21.9 GASTRO-ESOPHAGEAL REFLUX DISEASE WITHOUT 11/05/2018 DELMAN DO, EDGARDO B Ot K22.10 ULCER OF ESOPHAGUS WITHOUT BLEEDING 11/05/2018 DELMAN DO, EDGARDO B Ot K26.9 DUODENAL ULCER, UNSP ACUTE OR CHRONIC 11/05/2018 DELMAN DO, EDGARDO B Ot K29.50 UNSPECIFIED CHRONIC GASTRITIS WITHOUT BL 11/05/2018 DELMAN DO, EDGARDO B Ot K29.80 DUODENITIS WITHOUT BLEEDING 11/05/2018 DELMAN DO, EDGARDO B Ot K44.9 DIAPHRAGMATIC HERNIA WITHOUT OBSTRUCTION 11/05/2018 DELMAN DO, EDGARDO B Ot Z79.82 RESIDENTIAL (CURRENT) USE OF ASPIRIN 11/05/2018 DELMAN DO, EDGARDO B Ot Z79.899 OTHER RESIDENTIAL (CURRENT) DRUG THERAPY 11/05/2018 DELMAN DO, EDGARDO B Ot Z87.891 PERSONAL HISTORY OF NICOTINE DEPENDENCE 11/17/2018 DELMAN DO, EDGARDO B Ot C61 MALIGNANT NEOPLASM OF PROSTATE 11/17/2018 DELMAN DO, EDGARDO B Ot 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 11/17/2018 DELMAN DO, EDGARDO B Ot K21.9 GASTRO-ESOPHAGEAL REFLUX DISEASE WITHOUT 11/17/2018 DELMAN DO, EDGARDO B Ot K22.10 ULCER OF ESOPHAGUS WITHOUT BLEEDING 11/17/2018 DELMAN DO, EDGARDO B Ot K26.9 DUODENAL ULCER, UNSP ACUTE OR CHRONIC 11/17/2018 DELMAN DO, EDGARDO B Ot K29.50 UNSPECIFIED CHRONIC GASTRITIS WITHOUT BL 11/17/2018 DELMAN DO, EDGARDO B Ot K29.80 DUODENITIS WITHOUT BLEEDING 11/17/2018 DELMAN DO, EDGARDO B Ot K44.9 DIAPHRAGMATIC HERNIA WITHOUT OBSTRUCTION 11/17/2018 DELMAN DO, EDGARDO B Ot Z79.82 GENERAL FOUNDRY 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) USE OF ASPIRIN 11/17/2018 DELMAN DO, EDGARDO B Ot Z79.899 OTHER RESIDENTIAL (CURRENT) DRUG THERAPY 11/17/2018 DELMAN DO, EDGARDO B Ot Z87.891 PERSONAL HISTORY OF NICOTINE DEPENDENCE 11/24/2018 CHRISTIAN JOYCE, AKASH Galeano Ot C61 MALIGNANT NEOPLASM OF PROSTATE 11/24/2018 CHRISTIAN JOYCE, AKASH Galeano Ot M48.00 SPINAL STENOSIS, SITE UNSPECIFIED 11/24/2018 CHRISTIAN JOYCE, AKASH Galeano Ot R53.81 OTHER MALAISE 11/25/2018 CHRISTIAN JOYCE, AKASH Galeano Ot C61 MALIGNANT NEOPLASM OF PROSTATE 11/25/2018 CHRISTIAN JOYCE, AKASH Galeano Ot M48.00 SPINAL STENOSIS, SITE UNSPECIFIED 11/25/2018 HCRISTIAN JOYCE, AKASH Galeano Ot R53.81 OTHER MALAISE 12/09/2018 DELMAN DO, EDGARDO B Ot C61 MALIGNANT NEOPLASM OF PROSTATE 12/09/2018 DELMAN DO, EDGARDO B Ot 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 12/09/2018 DELMAN DO, EDGARDO B Ot K21.9 GASTRO-ESOPHAGEAL REFLUX DISEASE WITHOUT 12/09/2018 DELMAN DO, EDGARDO B Ot K22.10 ULCER OF ESOPHAGUS WITHOUT BLEEDING 12/09/2018 DELMAN DO, EDGARDO B Ot K26.9 DUODENAL ULCER, UNSP ACUTE OR CHRONIC 12/09/2018 DELMAN DO, EDGARDO B Ot K29.50 UNSPECIFIED CHRONIC GASTRITIS WITHOUT BL 12/09/2018 DELMAN DO, EDGARDO B Ot K29.80 DUODENITIS WITHOUT BLEEDING 12/09/2018 DELMAN DO, EDGARDO B Ot K44.9 DIAPHRAGMATIC HERNIA WITHOUT OBSTRUCTION 12/09/2018 DELMAN DO, EDGARDO B Ot Z79.82 GENERAL FOUNDRY 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) USE OF ASPIRIN 12/09/2018 DELMAN DO, EDGARDO B Ot 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 12/09/2018 DELMAN DO, EDGARDO B Ot Z87.891 PERSONAL HISTORY OF NICOTINE DEPENDENCE 01/02/2019 JESSICA MATHIS Ot C61 MALIGNANT NEOPLASM OF PROSTATE 01/02/2019 JESSICA MATHIS N 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 01/02/2019 JESSICA MATHIS N Ot 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 01/02/2019 JESSICA MATHIS N Ot C79.51 SECONDARY MALIGNANT NEOPLASM OF BONE 01/02/2019 JESSICA MATHIS Ot 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, UNSPECIFIED 01/02/2019 JESSICA MATHIS N Ot Z79.82 RESIDENTIAL (CURRENT) USE OF ASPIRIN 01/02/2019 JESSICA MATHIS N Ot Z79.899 OTHER RESIDENTIAL (CURRENT) DRUG THERAPY 01/02/2019 AKASH GONZALES MD Ot C61 MALIGNANT NEOPLASM OF PROSTATE 01/02/2019 AKASH GONZALES MD Ot M48.00 SPINAL STENOSIS, SITE UNSPECIFIED 01/02/2019 AKASH GONZALES MD Ot R53.81 OTHER MALAISE 01/05/2019 CHERRI PENG VP MARKETING Ot C61 MALIGNANT NEOPLASM OF PROSTATE 01/05/2019 CHERRI PENG VP MARKETING 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 01/05/2019 PENG CHERRI Fernandez VP MARKETING Ot C79.51 SECONDARY MALIGNANT NEOPLASM OF BONE 01/05/2019 PENG, CHERRI Fernandez VP MARKETING Ot N13.30 UNSPECIFIED HYDRONEPHROSIS 01/05/2019 PENG, CHERRI Fernandez VP MARKETING Ot N32.89 OTHER SPECIFIED DISORDERS OF BLADDER 01/05/2019 CHERRI PENG VP MARKETING Ot R91.8 OTHER NONSPECIFIC ABNORMAL FINDING OF CARLITO Procedures Code Description Performed By Performed On [id number] INSPECTION OF BLADDER, ENDO 10/24/2018 Results Test Result Range Complete urinalysis with [...] g/dL 3.2-4.5 CALCIUM CORRECTED 9.4 mg/dL 8.5-10.1 Methicillin resistant Staphylococcus aureus (MRSA) screening culture - 21:20 Methicillin resistant Staphylococcus aureus (MRSA) screening culture NEG NRG Encounters ACCT No. Visit Date/Time Discharge Status Pt. Type Provider Facility Loc./Unit Complaint [id number] 09/20/2014 00:00:00 09/20/2014 23:59:59 CLS Outpatient DONAVAN ALANIZ DDS [id number] 01/01/2019 11:13:00 01/01/2019 23:59:59 CLS Outpatient AKASH GONZALES MD [facility] REHAB SPINAL STENOSIS; PROSTATE CANCER DECONDITIONING [id number] 12/05/2018 10:15:00 12/05/2018 23:59:59 CLS Outpatient CHERRI PENG [facility] RAD IMAGING STUDY TO RESTAGE NEOPLASM [id number] 10/23/2018 10:05:00 2018 13:35:00 DIS Inpatient BRAYDEN COHEN DO [facility] IRF DEBILITY, SPINAL STENOSIS [id number] 10/25/2018 10:26:00 10/25/2018 23:59:59 CLS Outpatient EDGARDO BURNS DO [facility] ENDO SCOPE [id number] 10/21/2018 08:00:00 10/23/2018 10:00:00 DIS Outpatient HALIE LORENZO MD [facility] 4TH INTRACTABLE VERTIGO;S/P FALL; HEAD INJURY W/O [id number] 10/20/2018 10:55:00 10/20/2018 00:01:00 DIS Outpatient JESSICA MATHIS [facility] ONC [id number] 08/21/2018 13:53:00 08/21/2018 23:59:59 CLS Outpatient AKASH GONZALES MD [facility] LAB HEMATURIA [id number] 08/06/2018 12:16:00 08/06/2018 23:59:59 CLS Outpatient AKASH GONZALES MD [facility] RAD DIZZINESS,NAUSEA, PROSTATE CA W/ LUNG METASIS [id number] 07/03/2018 13:38:00 07/13/2018 00:01:00 DIS Outpatient AMOL PIERSON MD [facility] ONC [id number] 07/08/2018 12:04:00 07/08/2018 23:59:59 CLS Outpatient AMOL PIERSON MD [facility] CARD C61 PROSTATE CA [id number] 06/26/2018 10:59:00 07/02/2018 15:58:00 DIS Outpatient DELJESSICA Paulino [facility] ONC [id number] 06/30/2018 10:09:00 06/30/2018 23:59:59 CLS Outpatient LIAM SANTANA, BALDO Sigala [facility] RAD M54.2 [id number] 03/20/2018 13:06:00 06/11/2018 00:01:00 DIS Outpatient DELJESSICA GALARZA N [facility] ONC [id number] 12/26/2017 13:08:00 02/19/2018 00:01:00 DIS Outpatient JESSICA MATHIS [facility] ONC [id number] 08/08/2017 10:37:00 10/30/2017 00:01:00 DIS Outpatient DELJESSICA GALARZA N [facility] ONC [id number] 04/18/2017 13:09:00 07/10/2017 00:01:00 DIS Outpatient DEL, JESSICA N [facility] ONC [id number] 04/04/2017 13:24:00 04/04/2017 15:24:00 DIS Emergency BJ JOYCE, HALIE Jensen [facility] ER DIZZY SPELLS [id number] 12/20/2016 13:02:00 03/13/2017 00:01:00 DIS Outpatient DELJESSICA GALARZA N [facility] ONC [id number] 08/30/2016 09:37:00 11/21/2016 00:01:00 DIS Outpatient DELJESSICA GALARZA N [facility] ONC [id number] 05/11/2016 10:03:00 07/23/2016 14:53:00 DIS Outpatient JESSICA MATHIS N [facility] ONC [id number] 05/11/2016 10:00:00 05/11/2016 23:59:59 CLS Outpatient CHERRI PENG [facility] ONC [id number] 03/23/2016 07:06:00 03/23/2016 09:05:00 DIS Outpatient AKASH GONZALES MD [facility] FOLLOW UP PROSTATE CANCER [id number] 03/22/2016 06:09:00 03/22/2016 08:56:00 DIS Outpatient AKASH GONZALES MD [facility] PREOP FOLLOW UP PROSTATE CANCER [id number] 02/16/2016 09:50:00 02/22/2016 00:01:00 DIS Outpatient JESSICA MATHIS N [facility] ONC [id number] 02/10/2016 10:24:00 02/10/2016 23:59:59 CLS Outpatient JESSICA MATHIS N [facility] CARD PROSTATE CA [id number] 11/17/2015 10:57:00 11/23/2015 00:01:00 DIS Outpatient JESSICA MATHIS [facility] ONC [id number] 09/01/2015 13:06:00 09/01/2015 23:59:59 CLS Outpatient CHERRI PENG [facility] ONC [id number] 06/09/2015 13:10:00 07/13/2015 00:01:00 DIS Outpatient JESSICA MATHIS [facility] ONC [id number] 05/31/2015 08:36:00 05/31/2015 11:45:00 [facility] [id number] 05/27/2015 05:44:00 05/27/2015 23:59:59 CLS Outpatient AKASH GONZALES MD [facility] PREOP DYSPHAGIA [id number] 03/17/2015 10:04:00 03/23/2015 00:01:00 DIS Outpatient JESSICA MATHIS [facility] ONC [id number] 03/17/2015 10:10:00 03/17/2015 23:59:59 CLS Outpatient CHERRI PENG [facility] ONC [id number] 03/10/2015 08:07:00 03/10/2015 23:59:59 CLS Outpatient DEL, BOBAN N [facility] CARD 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 [id number] 03/10/2015 08:03:00 03/10/2015 23:59:59 CLS Outpatient JESSICA MATHIS [facility] RAD OSTEOPOROSIS BY MEDICATIONS [id number] 09/30/2014 13:56:00 11/21/2014 00:01:00 DIS Outpatient JESSICA MATHIS [facility] ONC [id number] 11/11/2014 10:21:00 11/11/2014 12:28:00 DIS Emergency BJ JOYCE, HALIE Jensen [facility] ER LEFT LEG INJURY [id number] 09/30/2014 02:45:00 09/30/2014 23:59:59 CLS Outpatient CHERRI PENG [facility] ONC [id number] 08/30/2014 10:42:00 08/30/2014 23:59:59 CLS Outpatient JESSICA MATHIS [facility] CARD COLON CA [id number] 08/16/2014 12:53:00 08/16/2014 17:03:00 DIS Emergency AGNES CALHOUN MD [facility] ER URINARY TROUBLE [id number] 08/10/2014 07:47:00 08/10/2014 23:59:59 CLS Outpatient AKASH GONZALES MD [facility] SDC RECTAL MASS [id number] 08/06/2014 07:08:00 08/06/2014 23:59:59 CLS Outpatient AKASH GONZALES MD [facility] PREOP RECTAL MASS [id number] 01/07/2019 09:49:00 ACT Emergency MAYUR RODRIGUEZ MD [facility] ER WEAKNESS;NOT EATING;HIGH BP [id number] 01/05/2019 13:09:00 ACT Outpatient JESSICA MATHIS [facility] ONC [id number] 12/23/2012 06:53:00 Document Registration [id number] 12/19/2012 08:09:00 Document Registration [id number] 08/15/2012 10:54:00 Document Registration [id number] 06/13/2011 09:33:00 Document Registration
--- NOTE | 2019-01-07 10:08 | ED General ---
General Stated Complaint: WEAKNESS;NOT EATING;HIGH BP Source of Information: Patient, Family ( and daughter) Exam Limitations: No Limitations History of Present Illness Date Seen by Provider: Jan 07, 2019 Time Seen by Provider: 09:46 Initial Comments Patient presents to ER by private conveyance with his and daughter and chief complaint of feeling dizzy and weak for the past couple days. He's had decreased appetite due to some feelings of bloating and constipation. Yesterday he took 2 enemas and some Dulcolax and then had a few bowel movements and his abdominal symptoms improved significantly. Today he said he had some hand cramping bilaterally as well as feeling weak in his legs bilaterally but did not fall. He's having no slurred speech, facial drooping, numbness or tingling. He has a history of prostatic cancer with urinary hesitancy. Recently he was diagnosed with a bladder cancer followed by Dr. Solis. Saturday, 5 days ago he had a CT of his chest and abdomen as part of his workup. He is not having any black tarry stools or bright red blood per rectum. He had another bowel movement again today. He has no history of stroke or heart disease. He does have high blood pressure and takes his medicines routinely for it. When he was having a hand cramping they checked his blood pressure and it was high 200/100. He has been noting some blood tinged urine for the past day or so. Yesterday morning he had a fall backwards due to his chronic dizziness and struck the right occiput against the bathtub. He did not lose consciousness and did not come in to be checked out. He says he didn't really want to come in today except that his family insisted. He is not on aspirin, Plavix or other blood thinners. He does not have any knowledge of any metastases. He straight catheters twice a day usually getting anywhere from 250 to 350 mL in the morning. Allergies and Home Medications Allergies Coded Allergies: diazepam (Verified Allergy, Unknown, 01/07/19) Uncoded Allergies: TRIAMICINALONE CREAM (Allergy, Unknown, 01/07/19) Home Medications Aspirin 81 Mg Tablet., 81 MG PO DAILY, (Reported) Cholecalciferol (Vitamin D3) 2,000 Unit Tablet, 2,000 UNIT PO DAILY, (Reported) Patient Home Medication List Home Medication List Reviewed: Yes Review of Systems Review of Systems Constitutional: No chills, No diaphoresis EENTM: No ear discharge, No ear pain Respiratory: No cough, No short of breath Cardiovascular: No chest pain, No edema Gastrointestinal: abdominal pain (mild, diffuse with bloating), constipation; No diarrhea Genitourinary: No dysuria; hematuria, hesitancy Musculoskeletal: No back pain, No joint pain Skin: No pruritus, No rash Past Jcjvaxv-Sibjal-Bscwpp Hx Patient Social History Alcohol Use: Occasionally Uses Alcohol Beverage of Choice: Beer Recreational Drug Use: No Smoking Status: Former Smoker Type Used: Cigarettes Former Smoker, Quit: Oct 23, 1950 2nd Hand Smoke Exposure: No Recent Hopitalizations: No Immunizations Up To Date Date of Pneumonia Vaccine: May 30, 2012 Date of Influenza Vaccine: Aug 27, 2018 Seasonal Allergies Seasonal Allergies: No Past Medical History Surgeries: Yes (pyloric stenosis sx, ) Respiratory: No Currently Using CPAP: No Currently Using BIPAP: No Cardiac: Yes Neurological: No Genitourinary: Yes (PROSTATE CANCER) Prostate Problems Gastrointestinal: No Musculoskeletal: No Endocrine: No HEENT: Yes (RIGHT PUPIL DEFORMITY) Loss of Vision: Denies Hearing Impairment: Denies Cancer: Yes Prostate Did You Recieve Any Treatments: Yes What Type of Treatment Did You: Radiation, Other Psychosocial: No Integumentary: No Blood Disorders: No Adverse Reaction/Blood Tranf: No Family Medical History Urinary tract infection 19 FATHER Renal Disease Physical Exam Vital Signs Vital Signs - First Documented 01/07/19 09:47 Temp 98.6 Pulse 89 Resp 20 B/P (MAP) 123/77 (92) Pulse Ox 96 O2 Delivery Room Air Capillary Refill : Height, Weight, BMI Height: 5'7.00" Weight: 164lbs. 4.0oz. 74.760869wk; 25.7 BMI Method:Stated General Appearance: No Apparent Distress, WD/WN Eyes: Bilateral Eye Normal Inspection, Bilateral Eye PERRL, Bilateral Eye EOMI HEENT: PERRL/EOMI, TMs Normal, Normal ENT Inspection, Pharynx Normal, Moist Mucous Membranes, Other (oropharynx is mildly dry. Negative for Dowd sign, raccoon eyes, hemotympanum or other evidence of head trauma.) Neck: Full Range of Motion, Normal Inspection, Non Tender, Supple Respiratory: Lungs Clear, Normal Breath Sounds, No Accessory Muscle Use, No Respiratory Distress Cardiovascular: Regular Rate, Rhythm, No Edema, Normal Peripheral Pulses Gastrointestinal: Normal Bowel Sounds, No Organomegaly, Soft, Distended ( minimal), Tenderness (diffuse all 4 quadrants) Extremity: Normal Capillary Refill, Normal Inspection, Normal Range of Motion, Non Tender, No Calf Tenderness, No Pedal Edema Neurologic/Psychiatric: Alert, Oriented x3, No Motor/Sensory Deficits, Normal Mood/Affect, harvest manager II-XII Norm as Tested Skin: Normal Color, Warm/Dry Progress/Results/Core Measures Suspected Sepsis SIRS Temperature: Pulse: Respiratory Rate: Laboratory Tests 01/07/19 10:05: White Blood Count 6.4 Blood Pressure / Mean: Laboratory Tests 01/07/19 10:05: Creatinine 1.57H, Platelet Count 315, Total Bilirubin 1.1H Results/Orders Lab Results Laboratory Tests Test 01/07/19 10:05 Range/Units White Blood Count 6.4 4.3-11.0 10^3/uL Red Blood Count 4.00 L 4.35-5.85 10^6/uL Hemoglobin 11.7 L 13.3-17.7 G/DL Hematocrit 35 L 40-54 % Mean Corpuscular Volume 88 80-99 FL Mean Corpuscular Hemoglobin 29 25-34 PG Mean Corpuscular Hemoglobin Concent 33 32-36 G/DL Red Cell Distribution Width 12.2 10.0-14.5 % Platelet Count 315 130-400 10^3/uL Mean Platelet Volume 8.8 7.4-10.4 FL Neutrophils (%) (Auto) 60 42-75 % Lymphocytes (%) (Auto) 21 12-44 % Monocytes (%) (Auto) 15 H 0-12 % Eosinophils (%) (Auto) 3 0-10 % Basophils (%) (Auto) 1 0-10 % Neutrophils # (Auto) 3.8 1.8-7.8 X 10^3 Lymphocytes # (Auto) 1.4 1.0-4.0 X 10^3 Monocytes # (Auto) 1.0 0.0-1.0 X 10^3 Eosinophils # (Auto) 0.2 0.0-0.3 10^3/uL Basophils # (Auto) 0.0 0.0-0.1 10^3/uL Urine Color YELLOW Urine Clarity SLIGHTLY CLOUDY Urine pH 6 5-9 Urine Specific [place] 1.015 L 1.016-1.022 Urine Protein 2+ H NEGATIVE Urine Glucose (UA) NEGATIVE NEGATIVE Urine Ketones NEGATIVE NEGATIVE Urine Nitrite NEGATIVE NEGATIVE Urine Bilirubin NEGATIVE NEGATIVE Urine Urobilinogen NORMAL NORMAL MG/DL Urine Leukocyte Esterase 1+ H NEGATIVE Urine RBC (Auto) 5+ H NEGATIVE Urine RBC 2-5 H /HPF Urine WBC 0-2 /HPF Urine Squamous Epithelial Cells 0-2 /HPF Urine Crystals NONE /LPF Urine Bacteria TRACE /HPF Urine Casts NONE /LPF Urine Mucus NEGATIVE /LPF Urine Culture Indicated NO Sodium Level 136 135-145 MMOL/L Potassium Level 3.8 3.6-5.0 MMOL/L Chloride Level 100 98-107 MMOL/L Carbon Dioxide Level 24 21-32 MMOL/L Anion Gap 12 5-14 MMOL/L Blood Urea Nitrogen 18 7-18 MG/DL Creatinine 1.57 H 0.60-1.30 MG/DL Estimat Glomerular Filtration Rate 42 BUN/Creatinine Ratio 11 Glucose Level 83 70-105 MG/DL Calcium Level 9.3 8.5-10.1 MG/DL Corrected Calcium 9.3 8.5-10.1 MG/DL Magnesium Level 2.0 1.8-2.4 MG/DL Total Bilirubin 1.1 H 0.1-1.0 MG/DL Aspartate Amino Transf (AST/SGOT) 20 5-34 U/L Alanine Aminotransferase (ALT/SGPT) 9 0-55 U/L Alkaline Phosphatase 106 40-136 U/L Total Protein 6.8 6.4-8.2 GM/DL Albumin 4.0 3.2-4.5 GM/DL My Orders Orders - MICHAELMAYUR J Ekg Tracing (01/07/19 09:55) Ct Head/Cervical Spine Wo (01/07/19 10:00) Chest 1 View, Ap/Pa Only (01/07/19 10:00) Cbc With Automated Diff (01/07/19 10:00) Comprehensive Metabolic Panel (01/07/19 10:00) Magnesium (01/07/19 10:00) Ua Culture If Indicated (01/07/19 10:00) Saline Lock/Iv-Start (01/07/19 10:00) Ns Iv 500 Ml (Sodium Chloride 0.9%) (01/07/19 10:00) Orthostatic Vital Signs (Adult (01/07/19 10:00) Continuous Ekg Monitoring (01/07/19 10:10) Catheter(Urinary) Insert & Ass 03,15 (01/07/19 10:10) Medications Given in ED Current Medications Medications Dose Ordered Sig/Vira Route Start Time Stop Time Status Last Admin Dose Admin Sodium Chloride 500 ml @ 0 mls/hr Q0M ONCE IV 01/07/19 10:00 01/07/19 10:03 DC 01/07/19 10:11 500 MLS/HR Vital Signs/I&O 01/07/19 09:47 Temp 98.6 Pulse 89 Resp 20 B/P (MAP) 123/77 (92) Pulse Ox 96 O2 Delivery Room Air Capillary Refill : Progress Note #1: Time: 10:08 Progress Note He does have a history of chronic dizziness feeling weak in his legs but his recent fall and bilateral weakness in his legs I would get a CT scan to rule out hemorrhage etc. His constipation, distention and abdominal discomfort seems to been treated by the Dulcolax and enemas however he still complains of some diffuse tenderness and a CT of the abdomen and pelvis would rule out a partial small bowel obstruction. We'll obtain an EKG and chest x-ray as well as labs and orthostatic vital signs. We'll get a urinalysis and put a Baltazar catheter and drain his bladder. Baltazar catheter brought back yellow 250 cc of urine. After reviewing the CT from Saturday which demonstrated a new tumor causing obstruction of his right ureter with mild to moderate hydronephrosis and hydroureter this would explain his diffuse discomfort in his abdomen. His constipation may also have played into this but he has salt that outpatient. A repeat CT scan is probably not going to be beneficial as we are to have hydroureter and hydronephrosis. He was post to go to the urologist yesterday but did not feel up to it so they rescheduled for Saturday, 2 days from now. His labs and urine will help us decide whether he needs to accelerate this plan. I have discontinued the CT of the abdomen and pelvis after discussing this case with him and his family. Progress Note #2: Time: 11:18 Progress Note Microscopic amount of blood and bacteria in the urine are expected given the fact that he has straight catheter twice a day chronically. No nitrites or elevated white count or other suggestion of bladder infection. Plan to allow him to follow-up outpatient on Saturday with urology to deal with the distal ureteral mass causing obstruction. Orthostatics were unremarkable. ECG Initial ECG Impression Date: Jan 07, 2019 Initial ECG Impression Time: 09:58 Initial ECG Rate: 81 Initial ECG Rhythm: Normal Sinus Initial ECG Intervals: Normal Initial ECG Impression: Normal Comment Normal sinus rhythm without ST elevation or depression. Diagnostic Imaging Diagonstic Imaging: CT (noncontrast) Plain Films/CT/US/NM/MRI: c-spine, head Comments No acute calvarial or cervical spine fracture or dislocation. No intracranial hemorrhage, mass effect, tumor, midline shift. Reviewed: Reviewed by Me Diagonstic Imaging: Xray Plain Films/CT/US/NM/MRI: chest Reviewed: Reviewed by Me Diagonstic Imaging: CT (old) Plain Films/CT/US/NM/MRI: abdomen Comments NAME: GINETTE PATINO A [facility] REC#: [id number] PHYSICIAN: CHERRI PENG CC: FRANCISCO NAVARRO MD; CHERRI PENG Page 2 of 2 RADIOLOGY REPORT [facility] [place], [place] CC: FRANCISCO NAVARRO MD; CHERRI PENG Page 1 of 2 RADIOLOGY REPORT NAME: GINETTE PATINO [facility] REC#: [id number] PT STATUS: REG CLI : 1935 PHYSICIAN: CHERRI PENG ADMIT DATE: 01/02/19/RAD Signed Date of Exam: 01/02/19 CT CHEST/ABDOMEN/PELVIS W PROCEDURE: CT chest, abdomen, and pelvis with contrast. TECHNIQUE: Multiple contiguous axial images were obtained through the chest, abdomen, and pelvis after the administration of intravenous contrast. Auto Exposure Controls were utilized during the CT exam to meet ALARA standards for radiation dose reduction. INDICATION: Prostate carcinoma. Difficulty urinating. COMPARISON: Comparison is made with prior CT from 07/08/2018. CT CHEST: No axillary lymphadenopathy is identified. No definite mediastinal or hilar lymphadenopathy is identified. No pericardial or pleural fluid is detected. Previously noted irregular density in the right upper lobe now measures 15 mm x 11 mm compared with 20 mm x 14 mm on prior. Tiny nodule on the right middle lobe is stable approximately 5 mm. There are some calcified nodules in both lungs consistent with granulomas. No new abnormality is detected. IMPRESSION: Decrease in size of right upper lobe mass when compared with study from 07/08/2018. No thoracic lymphadenopathy is detected. CT ABDOMEN AND PELVIS: No discrete liver mass is identified. The gallbladder is unremarkable. No biliary duct dilatation is seen. The pancreas and spleen are unremarkable. No adrenal mass is identified. Cyst in the upper pole of the left kidney is approximately 4.9 cm compared with 4.6 cm on prior. There has been development of a moderate right-sided hydroureteronephrosis. Dilated right ureter is traced into the pelvis where there is soft tissue mass at the right aspect of the bladder base, previously described. This measures approximately 3.4 x 3.5 cm compared with 3.6 x 3.1 cm. This appears very similar. However, this process likely is obstructing the distal right ureter. 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 No central retroperitoneal or mesenteric lymphadenopathy is seen. The small and large bowel loops are normal in caliber. No pelvic lymphadenopathy is seen. There is no free fluid or fluid collection identified. IMPRESSION: Soft tissue mass at the base of the right aspect of the bladder, similar in appearance to the study from 07/08/2018. However, there has been development of moderate right-sided hydroureteronephrosis traced to the pelvis. This lesion likely is obstructing the distal right ureter. No other new abnormality is detected. Dictated by: Dictated on workstation # [id number] Dict: 01/02/19 1220 Trans: 01/02/19 1537 Interpreted by: FRANCISCO NAVARRO MD Electronically signed by: FRANCISCO NAVARRO MD 01/02/19 1537 Reviewed: Reviewed by Me Consults Consults : Consulting Physician: WAYNE FLANNERY MD Consults Notes Discussed the case with urology and while there is a increase in his creatinine the tumor is chronic and with everything else being discussed he doesn't feel that there is any reason to accelerate the case with an inpatient workup. Keep the Saturday outpatient appointment. Departure Impression Primary Impression: Fall Qualified Codes: W19.XXXA - Unspecified fall, initial encounter Additional Impressions: Chronic vertigo Ureteral mass Benign microscopic hematuria Disposition: 01 HOME, SELF-CARE Condition: Stable Departure-Patient Inst. Referrals: AKASH GONZALES MD (PCP/Family) Primary Care Physician Patient Instructions: Urinary Obstruction (DC) Add. Discharge Instructions: If you develop a fever, nausea vomiting or pain intractable to Tylenol and/or ibuprofen then you should represent to your doctor or the ER for reevaluation. Keep your follow-up appointment on Saturday to have this mass addressed. MAYUR RODRIGUEZ Jan 07, 2019 10:08
[2019-01-07 10:18] LABS: BASOPHILS % (AUTO) 1 % (0-10); BILIRUBIN,URINE NEGATIVE (NEGATIVE); CLARITY,URINE SLIGHTLY CLOUDY; COLOR,URINE YELLOW; EOSINOPHILS # (AUTO) 0.2 10^3/uL (0.0-0.3); EOSINOPHILS % (AUTO) 3 % (0-10); GLUCOSE, URINE (UA) NEGATIVE (NEGATIVE); HEMATOCRIT 35 % (40-54); HEMOGLOBIN 11.7 G/DL (13.3-17.7); KETONES,URINE NEGATIVE (NEGATIVE); LEUKOCYTE ESTERASE ,URINE 1+ (NEGATIVE); LYMPHOCYTES # (AUTO) 1.4 X 10^3 (1.0-4.0); LYMPHOCYTES % (AUTO) 21 % (12-44); MEAN CORPUSCULAR HEMOGLOBIN 29 PG (25-34); MEAN CORPUSCULAR HGB CONC 33 G/DL (32-36); MEAN CORPUSCULAR VOLUME 88 FL (80-99); MEAN PLATELET VOLUME 8.8 FL (7.4-10.4); MONOCYTES % (AUTO) 15 % (0-12); NEUTROPHILS # (AUTO) 3.8 X 10^3 (1.8-7.8); NEUTROPHILS % (AUTO) 60 % (42-75); NITRITE,URINE NEGATIVE (NEGATIVE); PH,URINE 6 (5-9); PLATELET COUNT 315 10^3/uL (130-400); PROTEIN,URINE 2+ (NEGATIVE); RED CELL DISTRIBUTION WIDTH 12.2 % (10.0-14.5); UROBILINOGEN,URINE NORMAL (NORMAL); WHITE BLOOD COUNT 6.4 10^3/uL (4.3-11.0)
[2019-01-07 10:26] VITALS: BP_SYST 135; BP_SYST 139; BP_DIAS 77; BP_DIAS 78; BP_DIAS 82
--- NOTE | 2019-01-07 10:26 | NUR ---
BLADDER DRAINED 260CC OUTPUT
[2019-01-07 10:30] LABS: BACTERIA,URINE TRACE /HPF; SQUAMOUS EPITHELIAL CELL,UR 0-2 /HPF; WBC,URINE 0-2 /HPF
[2019-01-07] MEDS ORDERED: LEUP7.5S2 SQ (10:38)
[2019-01-07 10:39] LABS: BILIRUBIN,TOTAL 1.1 MG/DL (0.1-1.0); CALCIUM 9.3 MG/DL (8.5-10.1); CREATININE SERUM 1.57 MG/DL (0.60-1.30); POTASSIUM 3.8 MMOL/L (3.6-5.0); TOTAL PROTEIN 6.8 GM/DL (6.4-8.2)
--- NOTE | 2019-01-07 11:32 | Diagnostic Imaging Report ---
PROCEDURE: CT head and CT cervical spine without contrast. TECHNIQUE: Multiple contiguous axial images were obtained through the brain and cervical spine without the use of intravenous contrast. Sagittal and coronal reformations through the cervical spine were then performed. Auto Exposure Controls were utilized during the CT exam to meet ALARA standards for radiation dose reduction. INDICATION: Fall striking the back of the head, dizziness with unsteady gait study compared with priors 10/21/2018. CT HEAD: Mild senescent cortical atrophy and white matter small vessel sequelae with vascular calcifications are stable chronic findings. There is no espinoza hydrocephalus and no focal or generalized cerebral edema. There is no calvarial fracture deformity and no abnormal extra-axial fluid collection or hemorrhage. No paranasal sinus air-fluid level. There has been no change. CT CERVICAL SPINE: Cervical body heights are maintained. There slight grade 1 anterolisthesis of C7 with respect to T1. This is stable. There is degenerative changes to the discs, endplates, uncovertebral joints and facets on a chronic basis throughout. No cervical fracture or paravertebral hematoma. Bulky posterior endplate osteophytes bridging the C6-C7 levels result in moderate central canal stenosis. There is multilevel moderate severity foraminal narrowing bilaterally chronic. There is vascular calcifications of the left greater than right carotids chronic. No cervical fracture. No paravertebral hematoma. No change. IMPRESSION: CT HEAD: Stable chronic senescent findings. No hemorrhage, fracture or acute/posttraumatic sequelae. CT CERVICAL SPINE: Chronic degenerative changes and grade 1 listhesis with multilevel stenoses unchanged. No fracture or dislocation. Dictated by: Dictated on workstation # [id number]
[2019-01-07 12:06] VITALS: BP 132/87
== END 2019-01-07 12:10 | disposition home or self-care (01) ==
LOC: EDUNIT# 09:47 → ER 09:49
DX: R42 Dizziness and giddiness (principal); N28.89 Other specified disorders of kidney and ureter; R31.21 Asymptomatic microscopic hematuria; Z88.8 Allergy status to other drugs, medicaments and biological substances; Z85.46 Personal history of malignant neoplasm of prostate; Z79.02 Long term (current) use of antithrombotics/antiplatelets; Z79.82 Long term (current) use of aspirin; Z87.891 Personal history of nicotine dependence; W01.198A Fall on same level from slipping, tripping and stumbling with subsequent striking against other object, initial encounter
CPT/HCPCS: 36415; 51701; 70450; 72125; 80053; 81000; 83735; 85025; 93005

== ENCOUNTER 2019-01-25 13:33 | Emergency (ER) | payer MEDICARE, OTHER ==
[~2019-01-25] VITALS: Ht 170.2 cm; Wt 72.7 kg
[~2019-01-25 13:33] MED LIST changes: +LEUP7.5S2 SQ
--- NOTE | 2019-01-25 14:11 | ED GU-Male ---
General Chief Complaint: Catheter/Drain/Tube Problems Stated Complaint: NEPHROSTOMY BAG LEAKING Nursing Triage Note: PT AMB TO RM 6 WITH COMPLAINT OF LEAKING NEPHROSTOMY. PT STATES HIS TUBING DOES NOT FIT PROPERLY ON URINE BAG HE WAS PROVIDED. Source: patient, family Exam Limitations: no limitations History of Present Illness Date Seen by Provider: Jan 25, 2019 Time Seen by Provider: 14:11 Initial Comments 83-year-old male who presents to the emergency room with complaints of his nephrostomy bag leaking. He reports that due to being does not fit properly and the urine leg bag. He reports that leaking since he was discharged from the hospital last week. Timing/Duration: week Associated Symptoms: denies symptoms Allergies and Home Medications Allergies Coded Allergies: diazepam (Verified Allergy, Unknown, 01/07/19) Uncoded Allergies: TRIAMICINALONE CREAM (Allergy, Unknown, 01/07/19) Home Medications Aspirin 81 Mg Tablet.dr, 81 MG PO DAILY, (Reported) Cholecalciferol (Vitamin D3) 2,000 Unit Tablet, 2,000 UNIT PO DAILY, (Reported) Patient Home Medication List Home Medication List Reviewed: Yes Review of Systems Review of Systems Constitutional: see HPI; No chills, No fever Genitourinary: see HPI, other (nephrostomy bag leaking) All Other Systemes Reviewed Negative Unless Noted: Yes Past Fqercix-Gxvjpl-Cunswl Hx Past Med/Social Hx: Reviewed Nursing Past Med/Soc Hx Patient Social History Alcohol Use: Occasionally Uses Number of Drinks Today: AA Alcohol Beverage of Choice: Beer Recreational Drug Use: No Smoking Status: Former Smoker Type Used: Cigarettes Former Smoker, Quit: Oct 23, 1950 2nd Hand Smoke Exposure: No Recent Foreign Travel: No Contact w/Someone Who Travel: No Recent Infectious Disease Expo: No Recent Hopitalizations: No Immunizations Up To Date Tetanus Booster (TDap): Unknown Date of Pneumonia Vaccine: May 30, 2012 Date of Influenza Vaccine: Aug 27, 2018 Seasonal Allergies Seasonal Allergies: No Past Medical History Surgeries: Yes (pyloric stenosis sx, ) Penile Implant Respiratory: No Currently Using CPAP: No Currently Using BIPAP: No Cardiac: Yes Neurological: No Genitourinary: Yes (PROSTATE CANCER) Prostate Problems Gastrointestinal: No Musculoskeletal: No Endocrine: No HEENT: Yes (RIGHT PUPIL DEFORMITY) Loss of Vision: Denies Hearing Impairment: Denies Cancer: Yes Prostate Did You Recieve Any Treatments: Yes What Type of Treatment Did You: Radiation, Other Psychosocial: No Integumentary: No Blood Disorders: No Adverse Reaction/Blood Tranf: No Family Medical History Reviewed Nursing Family Hx Urinary tract infection 19 FATHER Renal Disease Physical Exam Vital Signs Vital Signs - First Documented 01/25/19 13:41 Pulse 75 Resp 20 B/P (MAP) 148/79 (102) Pulse Ox 96 O2 Delivery Room Air Capillary Refill : Less Than 3 Seconds Height, Weight, BMI Height: 5'7.00" Weight: 160lbs. 4.0oz. 72.896158lx; 25.7 BMI Method:Stated General Appearance: WD/WN, no apparent distress Cardiovascular: normal peripheral pulses, regular rate, rhythm, no edema, no gallop, no JVD, no murmur Respiratory: chest non-tender, lungs clear, normal breath sounds, no respiratory distress, no accessory muscle use Gastrointestinal: normal bowel sounds, non tender, soft, no organomegaly, no pulsatile mass Neurologic/Psychiatric: alert, normal mood/affect, oriented x 3 Skin: normal color, warm/dry Progress/Results/Core Measures Suspected Sepsis Recent Fever Within 48 Hours: No Infection Criteria Present: None New/Unexplained Altered Menta: No Sepsis Screen: No Definite Risk SIRS Temperature: Pulse: 75 Respiratory Rate: 20 Blood Pressure 148 /79 Mean: 102 Results/Orders Vital Signs/I&O 01/25/19 01/25/19 13:41 14:17 Pulse 75 75 Resp 20 20 B/P (MAP) 148/79 (102) 148/79 (102) Pulse Ox 96 96 O2 Delivery Room Air Capillary Refill : Less Than 3 Seconds Blood Pressure Mean: 102 Progress Note : Time: 14:11 Progress Note I have seen and evaluated the patient. A stop block was applied to the end of his nephrostomy tube allowing proper connection to the urine collection bag. A second stop block was provided the patient to have an extra if needed at home. He agrees with plan of care, plans for discharge, return precautions were given. Departure Impression Primary Impression: nephrostomy tube bag leaking Disposition: 01 HOME, SELF-CARE Condition: Stable/Unchanged Departure-Patient Inst. Decision time for Depature: 14:11 Referrals: AKASH GONZALES MD (PCP/Family) Primary Care Physician Patient Instructions: How to Care for Your Urostomy or Continent Diversion Add. 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 Return back to the emergency room for worsening symptoms or concerns as needed. All discharge instructions reviewed with patient and/or family. Voiced understanding. CAMELIA GROVES Jan 25, 2019 14:11
[2019-01-25 14:17] VITALS: BP 148/79
--- OUTSIDE RECORDS SUMMARY | 2019-01-25 15:04 | XMS REPORT ---
Author Author Babar Matt Organization [facility] Address [address] [place], [place] [id number] Care Team Providers Care Pencil Maker Name Role Phone Vernell Babar PCP Allergies and Adverse Reactions Name Reaction Notes Valium Plan of Treatment Planned Activity Comments Planned Date Planned Time Plan/Goal EKG. 01/09/2019 12:00 AM CBC W/ AUTO DIFF (RFLX MAN DIFF IF IND). 01/09/2019 12:00 AM BMP 01/09/2019 12:00 AM URINALYSIS W/MICRO C&S IF IND 01/09/2019 12:00 AM Medications Active Name Start Date Estimated Completion Date SIG Comments Xtandi 40 mg oral capsule take 4 capsules (160 mg) by oral route once daily at the same time each day swallowing whole. Do not chew, open, dissolve and/or crush. pantoprazole 40 mg oral tablet,delayed release (DR/EC) take 1 tablet ( 40 mg) by oral route once daily Aspirin Low Dose 81 mg oral tablet,delayed release (DR/EC) take 1 tablet (81 mg) by oral route once daily Eligard 7.5 mg (1 month) subcutaneous syringe inject 7.5 mg by subcutaneous route once a month potassium chloride 20 mEq oral tablet extended release take 1 tablet ( 20 meq) by oral route once daily with food Calcium 500 + D 500 mg(1,250mg) -400 unit oral tablet take 1 tablet by oral route daily Problem List Not available. Vital Signs Not available. Social History Name Description Comments Tobacco Never smoker Alcohol Light History of Procedures Not available. Results Summary Not available. History Of Immunizations Not available. History of Past Illness Name Date of Onset Comments Prostate Cancer Bladder cancer Rectal cancer Slowing of Urinary Stream Jan 09 2019 10:36AM Hematuria Jan 09 2019 10:36AM Nocturia Jan 09 2019 10:36AM Preoperative testing Jan 09 2019 11:05AM Bladder mass Jan 09 2019 10:36AM Malignant neoplasm of prostate Jan 09 2019 10:36AM Payers Insurance Name Company Name Plan Name Plan Number Policy Number Policy Group Number Start Date Medicare Part B Medicare [place] [id number] N/A Daniel [facility] [id number] N/A History of Encounters Visit Date Visit Type Provider 01/09/2019 Office visit Babar Matt MD
--- OUTSIDE RECORDS SUMMARY | 2019-01-25 15:05 | XMS REPORT ---
Author Author Babar Matt [facility] Address [address] [place], [place] [id number] Care Team Providers Care Press Operator Name Role Phone Babar Matt PCP Allergies and Adverse Reactions Name Reaction Notes Valium Plan of Treatment Planned Activity Comments Planned Date Planned Time Plan/Goal URINALYSIS W/MICRO C&S IF IND 01/09/2019 12:00 AM EKG. 01/09/2019 12:00 AM CBC W/ AUTO DIFF (RFLX MAN DIFF IF IND). 01/09/2019 12:00 AM BMP 01/09/2019 12:00 AM Medications Active Name Start [...] 10:36AM Preoperative testing Jan 09 2019 11:05AM Payers Insurance Name Company Name Plan Name Plan Number Policy Number Policy Group Number Start Date Medicare Part B [employer] [place] [id number] N/A [facility] [id number] N/A History of Encounters Visit Date Visit Type Provider 01/09/2019 Office visit Babar Matt MD
--- OUTSIDE RECORDS SUMMARY | 2019-01-25 15:05 | XMS REPORT ---
Author Author Babar Matt [facility] Address [address] [place], [place] [id number] Care Team Providers Care Beet Topper Name Role Phone Babar Matt PCP Allergies [...] Date Medicare Part B Medicare Of [place] [id number] N/A Daniel Tyler [facility] [id number] N/A History of Encounters Visit Date Visit Type Provider 01/09/2019 Office visit Babar Matt MD
--- OUTSIDE RECORDS SUMMARY | 2019-01-25 15:08 | XMS REPORT | Continuity of Care Document ---
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 PROSTATE 04/12/2016 DELJESSICA N Ot 793.7 NOSP (ABN) FINDINGS ON RADIOLOGICAL OT 04/12/2016 CHERRI PENG HYDRAULIC AND PLUMBING INSTALLER Ot 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 04/12/2016 DEL JESSICA N 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 04/12/2016 DEL BOBAN N Ot 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 04/12/2016 DELJESSICA GALARAZ N Ot 781.91 LOSS OF HEIGHT 04/12/2016 DELJESSICA GALARZA N 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 04/12/2016 DELJESSICA N Ot 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 04/12/2016 JESSICA MATHIS N Ot 733.90 BONE CARTILAGE DIS NOS 04/12/2016 PENGCHERRI Fernandez S HYDRAULIC AND PLUMBING INSTALLER 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 04/12/2016 CHERRI PENG S HYDRAULIC AND PLUMBING INSTALLER Ot 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 04/12/2016 CHRISTIAN JOYCE, AKASH Galeano Ot 787.20 DYSPHAGIA, UNSPECIFIED 04/12/2016 CHRISTIAN JOYCE, AKASH Galeano Ot V72.84 EXAM PRE-OPERATIVE NOS 04/12/2016 CHERRI PENG S HYDRAULIC AND PLUMBING INSTALLER Ot C61 MALIGNANT NEOPLASM OF PROSTATE 04/12/2016 CHERRI PENG S HYDRAULIC AND PLUMBING INSTALLER Ot C79.51 SECONDARY MALIGNANT NEOPLASM OF BONE 04/12/2016 CHERRI PENG HYDRAULIC AND PLUMBING INSTALLER Ot 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, UNSPECIFIED 04/12/2016 CHERRI PENG S HYDRAULIC AND PLUMBING INSTALLER Ot R23.2 FLUSHING 04/12/2016 CHERRI PENG S HYDRAULIC AND PLUMBING INSTALLER Ot Z79.899 OTHER CARE HOME (CURRENT) DRUG THERAPY 04/12/2016 JESSICA MATHIS N Ot C61 MALIGNANT NEOPLASM OF PROSTATE 04/12/2016 DELJESSICA N 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 04/12/2016 DELJESSICA GALARZA N Ot C79.51 SECONDARY MALIGNANT NEOPLASM OF BONE 04/12/2016 DELJESSICA GALARZA N Ot C61 MALIGNANT NEOPLASM OF PROSTATE 04/12/2016 DEL BOBLUZ N Ot C79.51 SECONDARY MALIGNANT NEOPLASM OF BONE 04/12/2016 JESSICA MATHIS N Ot Z79.899 OTHER CARE HOME (CURRENT) DRUG THERAPY 05/04/2016 DELJESSICA N Ot C61 MALIGNANT NEOPLASM OF PROSTATE 05/04/2016 DELJESSICA N Ot C79.51 SECONDARY MALIGNANT NEOPLASM OF BONE 05/04/2016 DELJESSICA N Ot Z79.899 OTHER CARE HOME (CURRENT) DRUG THERAPY 05/07/2016 Ot 788.41 URINARY [...] Galeano Ot V15.3 HX OF IRRADIATION 05/07/2016 JESSICA MATHIS N Ot 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 05/07/2016 DELBOBBI GALARZAAN N Ot 793.7 NOSP (ABN) FINDINGS ON RADIOLOGICAL OT 05/07/2016 CHERRI PENG HYDRAULIC AND PLUMBING INSTALLER Ot 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 05/07/2016 DELBOBBIAN N Ot 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 05/07/2016 DELBOBBIAN N Ot 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 05/07/2016 DELBOBBI GALARZAAN N Ot 781.91 LOSS OF HEIGHT 05/07/2016 JESSICA MATHIS N Ot 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 05/07/2016 DELBOBBIAN N Ot 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 05/07/2016 JESSICA MATHIS N Ot 733.90 BONE CARTILAGE DIS NOS 05/07/2016 CHERRI PENG HYDRAULIC AND PLUMBING INSTALLER Ot 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 05/07/2016 CHERRI PENG HYDRAULIC AND PLUMBING INSTALLER Ot 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 05/07/2016 CHRISTIAN JOYCE, AKASH Galeano Ot 787.20 DYSPHAGIA, UNSPECIFIED 05/07/2016 CHRISTIAN JOYCE, AKASH Galeano Ot V72.84 EXAM PRE-OPERATIVE NOS 05/07/2016 CHERRI PENG HYDRAULIC AND PLUMBING INSTALLER Ot C61 MALIGNANT NEOPLASM OF PROSTATE 05/07/2016 CHERRI PENG HYDRAULIC AND PLUMBING INSTALLER Ot C79.51 SECONDARY MALIGNANT NEOPLASM OF BONE 05/07/2016 CHERRI PENG HYDRAULIC AND PLUMBING INSTALLER Ot 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, UNSPECIFIED 05/07/2016 CHERRI PENG HYDRAULIC AND PLUMBING INSTALLER Ot R23.2 FLUSHING 05/07/2016 HCERRI PENG HYDRAULIC AND PLUMBING INSTALLER Ot Z79.899 OTHER SPECIALTY TRANSFORMER ASSEMBLER (CURRENT) DRUG THERAPY 05/07/2016 JESSICA MATHIS N Ot C61 MALIGNANT NEOPLASM OF PROSTATE 05/07/2016 DELJESSICA GALARZA N 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 05/07/2016 JESSICA MATHIS N Ot C79.51 SECONDARY MALIGNANT NEOPLASM OF BONE 05/07/2016 JESSICA MATHIS N Ot C61 MALIGNANT NEOPLASM OF PROSTATE 05/07/2016 JESSICA MATHIS N Ot C79.51 SECONDARY MALIGNANT NEOPLASM OF BONE 05/07/2016 JESSICA MATHIS N Ot Z79.899 OTHER SPECIALTY TRANSFORMER ASSEMBLER (CURRENT) DRUG THERAPY 05/08/2016 Ot 788.41 URINARY [...] Galeano Ot V15.3 HX OF IRRADIATION 05/08/2016 JESSICA MATHIS N Ot 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 05/08/2016 JESSICA MATHIS N Ot 793.7 NOSP (ABN) FINDINGS ON RADIOLOGICAL OT 05/08/2016 CHERRI PENG HYDRAULIC AND PLUMBING INSTALLER Ot 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 05/08/2016 DEL BOBAN N Ot 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 05/08/2016 JESSICA MATHIS N Ot 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 05/08/2016 JESSICA MATHIS N Ot 781.91 LOSS OF HEIGHT 05/08/2016 JESSICA MATHIS N Ot 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 05/08/2016 JESSICA MATHIS N Ot 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 05/08/2016 JESSICA MATHIS N Ot 733.90 BONE CARTILAGE DIS NOS 05/08/2016 CHERRI PENG S HYDRAULIC AND PLUMBING INSTALLER Ot 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 05/08/2016 CHERRI PENG HYDRAULIC AND PLUMBING INSTALLER Ot 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 05/08/2016 CHRISTIAN JOYCE, AKASH Galeano Ot 787.20 DYSPHAGIA, UNSPECIFIED 05/08/2016 CHRISTIAN JOYCE, AKASH Galeano Ot V72.84 EXAM PRE-OPERATIVE NOS 05/08/2016 CHERRI PENG HYDRAULIC AND PLUMBING INSTALLER Ot C61 MALIGNANT NEOPLASM OF PROSTATE 05/08/2016 CHERRI PENG HYDRAULIC AND PLUMBING INSTALLER Ot C79.51 SECONDARY MALIGNANT NEOPLASM OF BONE 05/08/2016 CHERRI PENG HYDRAULIC AND PLUMBING INSTALLER Ot 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, UNSPECIFIED 05/08/2016 CHERRI PENG HYDRAULIC AND PLUMBING INSTALLER Ot R23.2 FLUSHING 05/08/2016 CHERRI PENG HYDRAULIC AND PLUMBING INSTALLER Ot Z79.899 OTHER CARE HOME (CURRENT) DRUG THERAPY 05/08/2016 DELJESSICA GALARZA N Ot C61 MALIGNANT NEOPLASM OF PROSTATE 05/08/2016 DEL JESSICA N 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 05/08/2016 DEL JESSICA N Ot C79.51 SECONDARY MALIGNANT NEOPLASM OF BONE 05/08/2016 DELJESSICA N Ot C61 MALIGNANT NEOPLASM OF PROSTATE 05/08/2016 DEL JESSICA N Ot C79.51 SECONDARY MALIGNANT NEOPLASM OF BONE 05/08/2016 DEL JESSICA N Ot Z79.899 OTHER SPECIALTY TRANSFORMER ASSEMBLER (CURRENT) DRUG THERAPY 05/11/2016 Ot 788.41 URINARY [...] Galeano Ot V15.3 HX OF IRRADIATION 05/11/2016 JESSICA MATHIS N Ot 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 05/11/2016 JESSICA MATHIS N Ot 793.7 NOSP (ABN) FINDINGS ON RADIOLOGICAL OT 05/11/2016 CHERRI PENGP Ot 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 05/11/2016 JESSICA MATHIS N Ot 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 05/11/2016 JESSICA MATHIS N Ot 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 05/11/2016 JESSICA MATHIS N Ot 781.91 LOSS OF HEIGHT 05/11/2016 JESSICA MATHIS N Ot 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 05/11/2016 JESSICA MATHIS N Ot 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 05/11/2016 JESSICA MATHIS N Ot 733.90 BONE CARTILAGE DIS NOS 05/11/2016 GINETTE CHERRI S HYDRAULIC AND PLUMBING INSTALLER Ot 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 05/11/2016 PENGCHERRI Fernandez S HYDRAULIC AND PLUMBING INSTALLER Ot 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 05/11/2016 CHRISTIAN JOYCE, AKASH Galeano Ot 787.20 DYSPHAGIA, UNSPECIFIED 05/11/2016 AKASH GONZALES MD Ot V72.84 EXAM PRE-OPERATIVE NOS 05/11/2016 PENG CHERRI S HYDRAULIC AND PLUMBING INSTALLER Ot C61 MALIGNANT NEOPLASM OF PROSTATE 05/11/2016 GINETTE CHERRI S HYDRAULIC AND PLUMBING INSTALLER Ot C79.51 SECONDARY MALIGNANT NEOPLASM OF BONE 05/11/2016 PENG CHERRI S HYDRAULIC AND PLUMBING INSTALLER Ot 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, UNSPECIFIED 05/11/2016 PENG CHERRI S HYDRAULIC AND PLUMBING INSTALLER Ot R23.2 FLUSHING 05/11/2016 CHERRI PENG S HYDRAULIC AND PLUMBING INSTALLER Ot Z79.899 OTHER CARE HOME (CURRENT) DRUG THERAPY 05/11/2016 DELJESSICA GALARZA N Ot C61 MALIGNANT NEOPLASM OF PROSTATE 05/11/2016 DEL, BOBAN N 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 05/11/2016 DEL BOBAN N Ot C79.51 SECONDARY MALIGNANT NEOPLASM OF BONE 05/11/2016 DEL BOBAN N Ot C61 MALIGNANT NEOPLASM OF PROSTATE 05/11/2016 DEL BOBAN N Ot C79.51 SECONDARY MALIGNANT NEOPLASM OF BONE 05/11/2016 DEL BOBAN N Ot Z79.899 OTHER CARE HOME (CURRENT) DRUG THERAPY 05/14/2016 GINETTE CHERRI S HYDRAULIC AND PLUMBING INSTALLER Ot C61 MALIGNANT NEOPLASM OF PROSTATE 05/14/2016 PENGCHERRI Fernandez S HYDRAULIC AND PLUMBING INSTALLER Ot C79.51 SECONDARY MALIGNANT NEOPLASM OF BONE 05/14/2016 CHERRI PENG S HYDRAULIC AND PLUMBING INSTALLER Ot Z79.899 OTHER CARE HOME (CURRENT) DRUG THERAPY 05/29/2016 Ot 788.41 URINARY FREQUENCY 05/29/2016 Ot 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 05/29/2016 Ot V72.84 EXAM PRE- OPERATIVE NOS 05/29/2016 CHRISTIAN JOYCE, AKASH Galeano Ot V72.84 EXAM PRE-OPERATIVE NOS 05/29/2016 CHRISTIAN JOYCE, AKASH Galeano Ot 154.1 MALIGNANT NEOPL RECTUM 05/29/2016 AKASH GONZALES MD Ot 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 05/29/2016 AKASH GONZALES MD Ot 562.10 DIVERTICULOSIS COLON (W/O MENT OF HEMORR 05/29/2016 CHRISTIAN JOYCE, AKASH Galeano Ot V15.3 HX OF IRRADIATION 05/29/2016 DEL, JESSICA N Ot 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 05/29/2016 DEL BOBBIAN N Ot 793.7 NOSP (ABN) FINDINGS ON RADIOLOGICAL OT 05/29/2016 CHERRI PENG S HYDRAULIC AND PLUMBING INSTALLER Ot 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 05/29/2016 DELJESSICA N Ot 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 05/29/2016 DEL BOBBIAN N Ot 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 05/29/2016 DELBOBBIAN N Ot 781.91 LOSS OF HEIGHT 05/29/2016 DELJESSICA N Ot 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 05/29/2016 DELJESSICA N Ot 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 05/29/2016 DELJESSICA N Ot 733.90 BONE CARTILAGE DIS NOS 05/29/2016 CHERRI PENG HYDRAULIC AND PLUMBING INSTALLER Ot 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 05/29/2016 CHERRI PENG HYDRAULIC AND PLUMBING INSTALLER Ot 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 05/29/2016 CHRISTIAN JOYCE, AKASH Galeano Ot 787.20 DYSPHAGIA, UNSPECIFIED 05/29/2016 CHRISTIAN JOYCE, AKASH Galeano Ot V72.84 EXAM PRE-OPERATIVE NOS 05/29/2016 CHERRI PENG HYDRAULIC AND PLUMBING INSTALLER Ot C61 MALIGNANT NEOPLASM OF PROSTATE 05/29/2016 CHERRI PENG HYDRAULIC AND PLUMBING INSTALLER Ot C79.51 SECONDARY MALIGNANT NEOPLASM OF BONE 05/29/2016 CHERRI PENG HYDRAULIC AND PLUMBING INSTALLER Ot 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, UNSPECIFIED 05/29/2016 CHERRI PENG HYDRAULIC AND PLUMBING INSTALLER Ot R23.2 FLUSHING 05/29/2016 CHERRI PENG HYDRAULIC AND PLUMBING INSTALLER Ot Z79.899 OTHER CARE HOME (CURRENT) DRUG THERAPY 05/29/2016 JESSICA MATHIS N Ot C61 MALIGNANT NEOPLASM OF PROSTATE 05/29/2016 JESSICA MATHIS N 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 05/29/2016 JESSICA MATHIS N Ot C79.51 SECONDARY MALIGNANT NEOPLASM OF BONE 05/29/2016 JESSICA MATHIS N Ot C61 MALIGNANT NEOPLASM OF PROSTATE 05/29/2016 JESSICA MATHIS N Ot C79.51 SECONDARY MALIGNANT NEOPLASM OF BONE 05/29/2016 JESSICA MATHIS N Ot Z79.899 OTHER CARE HOME (CURRENT) DRUG THERAPY 05/29/2016 CHERRI PENG HYDRAULIC AND PLUMBING INSTALLER Ot C61 MALIGNANT NEOPLASM OF PROSTATE 05/29/2016 CHERRI PENG HYDRAULIC AND PLUMBING INSTALLER Ot C79.51 SECONDARY MALIGNANT NEOPLASM OF BONE 05/29/2016 CHERRI PENG HYDRAULIC AND PLUMBING INSTALLER Ot Z79.899 OTHER CARE HOME (CURRENT) DRUG THERAPY 06/05/2016 JESSICA MATHIS N Ot C61 MALIGNANT NEOPLASM OF PROSTATE 06/05/2016 DEL BOBAN N Ot C79.51 SECONDARY MALIGNANT NEOPLASM OF BONE 06/05/2016 DELBOBBIAN N Ot Z79.899 OTHER SPECIALTY TRANSFORMER ASSEMBLER (CURRENT) DRUG THERAPY 06/05/2016 Ot 788.41 URINARY FREQUENCY 06/05/2016 Ot 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 06/05/2016 Ot V72.84 EXAM PRE- OPERATIVE NOS 06/05/2016 CHRISTIAN JOYCE, AKASH Galeano Ot V72.84 EXAM PRE-OPERATIVE NOS 06/05/2016 CHRISTIAN JOYCE, AKASH Galeano Ot 154.1 MALIGNANT NEOPL RECTUM 06/05/2016 AKASH GONZALES MD Ot 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 06/05/2016 CHRISTIAN JOYCE, AKASH Galeano Ot 562.10 DIVERTICULOSIS COLON (W/O MENT OF HEMORR 06/05/2016 CHRISTIAN JOYCE, AKASH Galeano Ot V15.3 HX OF IRRADIATION 06/05/2016 JESSICA MATHIS N Ot 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 06/05/2016 DEL BOBAN N Ot 793.7 NOSP (ABN) FINDINGS ON RADIOLOGICAL OT 06/05/2016 CHERRI PENG HYDRAULIC AND PLUMBING INSTALLER Ot 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 06/05/2016 DEL BOBAN N Ot 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 06/05/2016 DEL BOBAN N Ot 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 06/05/2016 DEL, BOBAN N Ot 781.91 LOSS OF HEIGHT 06/05/2016 DEL BOBAN N Ot 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 06/05/2016 DEL, BOBAN N Ot 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 06/05/2016 DEL BOBAN N Ot 733.90 BONE CARTILAGE DIS NOS 06/05/2016 CHERRI PENG HYDRAULIC AND PLUMBING INSTALLER Ot 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 06/05/2016 CHERRI PENG HYDRAULIC AND PLUMBING INSTALLER Ot 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 06/05/2016 CHRISTIAN JOYCE, AKASH Galeano Ot 787.20 DYSPHAGIA, UNSPECIFIED 06/05/2016 AKASH GONZALES MD Ot V72.84 EXAM PRE-OPERATIVE NOS 06/05/2016 CHERRI PENG S HYDRAULIC AND PLUMBING INSTALLER Ot C61 MALIGNANT NEOPLASM OF PROSTATE 06/05/2016 CHERRI PENG S HYDRAULIC AND PLUMBING INSTALLER Ot C79.51 SECONDARY MALIGNANT NEOPLASM OF BONE 06/05/2016 CHERRI PENG HYDRAULIC AND PLUMBING INSTALLER Ot 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, UNSPECIFIED 06/05/2016 CHERRI PENG HYDRAULIC AND PLUMBING INSTALLER Ot R23.2 FLUSHING 06/05/2016 CHERRI PENG S HYDRAULIC AND PLUMBING INSTALLER Ot Z79.899 OTHER SPECIALTY TRANSFORMER ASSEMBLER (CURRENT) DRUG THERAPY 06/05/2016 DEL BOBBILUZ N Ot C61 MALIGNANT NEOPLASM OF PROSTATE 06/05/2016 DELBOBBILUZ N 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 06/05/2016 DELBOBBIAN N Ot C79.51 SECONDARY MALIGNANT NEOPLASM OF BONE 06/05/2016 DEL BOBAN N Ot C61 MALIGNANT NEOPLASM OF PROSTATE 06/05/2016 DEL BOBAN N Ot C79.51 SECONDARY MALIGNANT NEOPLASM OF BONE 06/05/2016 DEL BOBAN N Ot Z79.899 OTHER CARE HOME (CURRENT) DRUG THERAPY 06/05/2016 CHERRI PENG S HYDRAULIC AND PLUMBING INSTALLER Ot C61 MALIGNANT NEOPLASM OF PROSTATE 06/05/2016 CHERRI PENG S HYDRAULIC AND PLUMBING INSTALLER Ot C79.51 SECONDARY MALIGNANT NEOPLASM OF BONE 06/05/2016 CHERRI PENG S HYDRAULIC AND PLUMBING INSTALLER Ot Z79.899 OTHER SPECIALTY TRANSFORMER ASSEMBLER (CURRENT) DRUG THERAPY 06/05/2016 DEL BOBAN N Ot C61 MALIGNANT NEOPLASM OF PROSTATE 06/05/2016 DEL, BOBAN N Ot C79.51 SECONDARY MALIGNANT NEOPLASM OF BONE 06/05/2016 DEL, BOBAN N Ot Z79.899 OTHER CARE HOME (CURRENT) DRUG THERAPY 06/05/2016 DEL BOBAN N Ot C61 MALIGNANT NEOPLASM OF PROSTATE 06/05/2016 DEL BOBAN N Ot C79.51 SECONDARY MALIGNANT NEOPLASM OF BONE 06/05/2016 DEL BOBAN N Ot Z79.899 OTHER CARE HOME (CURRENT) DRUG THERAPY 06/06/2016 CHERRI PENG S HYDRAULIC AND PLUMBING INSTALLER Ot C61 MALIGNANT NEOPLASM OF PROSTATE 06/06/2016 CHERRI PENG HYDRAULIC AND PLUMBING INSTALLER Ot C79.51 SECONDARY MALIGNANT NEOPLASM OF BONE 06/06/2016 CHERRI PENG HYDRAULIC AND PLUMBING INSTALLER Ot Z79.899 OTHER SPECIALTY TRANSFORMER ASSEMBLER (CURRENT) DRUG THERAPY 06/15/2016 Ot 788.41 URINARY FREQUENCY 06/15/2016 Ot 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 06/15/2016 Ot V72.84 EXAM PRE- OPERATIVE NOS 06/15/2016 CHRISTIAN JOYCE, AKASH Galeano Ot V72.84 EXAM PRE-OPERATIVE NOS 06/15/2016 CHRISTIAN JOYCE, AKASH Galeano Ot 154.1 MALIGNANT NEOPL RECTUM 06/15/2016 CHRISTIAN JOYCE, AKASH Galeano Ot 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 06/15/2016 CHRISTIAN JOYCE, AKASH Galeano Ot 562.10 DIVERTICULOSIS COLON (W/O MENT OF HEMORR 06/15/2016 CHRISTIAN JOYCE, AKASH Galeano Ot V15.3 HX OF IRRADIATION 06/15/2016 JESSICA MATHIS N Ot 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 06/15/2016 JESSICA MATHIS N Ot 793.7 NOSP (ABN) FINDINGS ON RADIOLOGICAL OT 06/15/2016 CHERRI PENG S HYDRAULIC AND PLUMBING INSTALLER Ot 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 06/15/2016 DELBOBBIAN N Ot 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 06/15/2016 DELBOBBI GALARZAAN N Ot 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 06/15/2016 DELJESSICA GALARZA N Ot 781.91 LOSS OF HEIGHT 06/15/2016 BOBBI MATHISAN N Ot 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 06/15/2016 DELBOBBIAN N Ot 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 06/15/2016 DELBOBBIAN N Ot 733.90 BONE CARTILAGE DIS NOS 06/15/2016 CHERRI PENG S HYDRAULIC AND PLUMBING INSTALLER Ot 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 06/15/2016 CHERRI PENG S HYDRAULIC AND PLUMBING INSTALLER Ot 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 06/15/2016 CHRISTIAN JOYCE, AKASH Galeano Ot 787.20 DYSPHAGIA, UNSPECIFIED 06/15/2016 CHRISTIAN JOYCE, AKASH Galeano Ot V72.84 EXAM PRE-OPERATIVE NOS 06/15/2016 CHERRI PENG S HYDRAULIC AND PLUMBING INSTALLER Ot C61 MALIGNANT NEOPLASM OF PROSTATE 06/15/2016 CHERRI PENG HYDRAULIC AND PLUMBING INSTALLER Ot C79.51 SECONDARY MALIGNANT NEOPLASM OF BONE 06/15/2016 CHERRI PENG HYDRAULIC AND PLUMBING INSTALLER Ot 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, UNSPECIFIED 06/15/2016 CHERRI PENG HYDRAULIC AND PLUMBING INSTALLER Ot R23.2 FLUSHING 06/15/2016 CHERRI PENG HYDRAULIC AND PLUMBING INSTALLER Ot Z79.899 OTHER CARE HOME (CURRENT) DRUG THERAPY 06/15/2016 DELJESSICA N Ot C61 MALIGNANT NEOPLASM OF PROSTATE 06/15/2016 DELJESSICA N 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 06/15/2016 DEL JESSICA N Ot C79.51 SECONDARY MALIGNANT NEOPLASM OF BONE 06/15/2016 DEL JESSICA N Ot C61 MALIGNANT NEOPLASM OF PROSTATE 06/15/2016 DEL JESSICA N Ot C79.51 SECONDARY MALIGNANT NEOPLASM OF BONE 06/15/2016 DEL JESSICA N Ot Z79.899 OTHER CARE HOME (CURRENT) DRUG THERAPY 06/15/2016 CHERRI PENG HYDRAULIC AND PLUMBING INSTALLER Ot C61 MALIGNANT NEOPLASM OF PROSTATE 06/15/2016 CHERRI PENG HYDRAULIC AND PLUMBING INSTALLER Ot C79.51 SECONDARY MALIGNANT NEOPLASM OF BONE 06/15/2016 CHERRI PENG HYDRAULIC AND PLUMBING INSTALLER Ot Z79.899 OTHER SPECIALTY TRANSFORMER ASSEMBLER (CURRENT) DRUG THERAPY 07/23/2016 Ot 788.41 URINARY FREQUENCY 07/23/2016 Ot 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 07/23/2016 Ot V72.84 EXAM PRE- OPERATIVE NOS 07/23/2016 CHRISTIAN JOYCE, AKASH Galeano Ot V72.84 EXAM PRE-OPERATIVE NOS 07/23/2016 CHRISTIAN JOYCE, AKASH Galeano Ot 154.1 MALIGNANT NEOPL RECTUM 07/23/2016 CHRISTIAN JOYCE, AKASH Galeano Ot 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 07/23/2016 AKASH GONZALES MD Ot 562.10 DIVERTICULOSIS COLON (W/O MENT OF HEMORR 07/23/2016 CHRISTIAN JOYCE, AKASH Galeano Ot V15.3 HX OF IRRADIATION 07/23/2016 JESSICA MATHIS Ot 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 07/23/2016 JESSICA MATHIS Ot 793.7 NOSP (ABN) FINDINGS ON RADIOLOGICAL OT 07/23/2016 CHERRI PENG S HYDRAULIC AND PLUMBING INSTALLER Ot 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 07/23/2016 JESSICA MATHIS Ot 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 07/23/2016 DEL, BOBAN N Ot 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 07/23/2016 JESSICA MATHIS N Ot 781.91 LOSS OF HEIGHT 07/23/2016 JESSICA MATHIS N Ot 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 07/23/2016 DEL, BOBAN N Ot 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 07/23/2016 JESSICA MATHIS N Ot 733.90 BONE CARTILAGE DIS NOS 07/23/2016 CHERRI PENG S HYDRAULIC AND PLUMBING INSTALLER Ot 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 07/23/2016 CHERRI PENG S HYDRAULIC AND PLUMBING INSTALLER Ot 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 07/23/2016 CHRISTIAN JOYCE, AKASH Galeano Ot 787.20 DYSPHAGIA, UNSPECIFIED 07/23/2016 CHRISTIAN JOYCE, AKASH Galeano Ot V72.84 EXAM PRE-OPERATIVE NOS 07/23/2016 CHERRI PENG S HYDRAULIC AND PLUMBING INSTALLER Ot C61 MALIGNANT NEOPLASM OF PROSTATE 07/23/2016 CHERRI PENG S HYDRAULIC AND PLUMBING INSTALLER Ot C79.51 SECONDARY MALIGNANT NEOPLASM OF BONE 07/23/2016 CHERRI PENG S HYDRAULIC AND PLUMBING INSTALLER Ot 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, UNSPECIFIED 07/23/2016 VITOR PENGAH S HYDRAULIC AND PLUMBING INSTALLER Ot R23.2 FLUSHING 07/23/2016 VITOR PENGAH S HYDRAULIC AND PLUMBING INSTALLER Ot Z79.899 OTHER SPECIALTY TRANSFORMER ASSEMBLER (CURRENT) DRUG THERAPY 07/23/2016 JESSICA MATHIS N Ot C61 MALIGNANT NEOPLASM OF PROSTATE 07/23/2016 JESSICA MATHIS N 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 07/23/2016 JESSICA MATHIS N Ot C79.51 SECONDARY MALIGNANT NEOPLASM OF BONE 07/23/2016 JESSICA MATHIS N Ot C61 MALIGNANT NEOPLASM OF PROSTATE 07/23/2016 DEL BOBAN N Ot C79.51 SECONDARY MALIGNANT NEOPLASM OF BONE 07/23/2016 BOBBI MATHISAN N Ot Z79.899 OTHER SPECIALTY TRANSFORMER ASSEMBLER (CURRENT) DRUG THERAPY 07/23/2016 VITOR PENGAH S HYDRAULIC AND PLUMBING INSTALLER Ot C61 MALIGNANT NEOPLASM OF PROSTATE 07/23/2016 VITOR PENGAH S HYDRAULIC AND PLUMBING INSTALLER Ot C79.51 SECONDARY MALIGNANT NEOPLASM OF BONE 07/23/2016 VITOR PENGAH S HYDRAULIC AND PLUMBING INSTALLER Ot Z79.899 OTHER SPECIALTY TRANSFORMER ASSEMBLER (CURRENT) DRUG THERAPY 07/23/2016 DEL BOBBIAN N Ot C61 MALIGNANT NEOPLASM OF PROSTATE 07/23/2016 DELJESSICA N Ot C79.51 SECONDARY MALIGNANT NEOPLASM OF BONE 07/23/2016 DELJESSICA N Ot Z79.899 OTHER CARE HOME (CURRENT) DRUG THERAPY 08/24/2016 DELJESSICA N Ot C61 MALIGNANT NEOPLASM OF PROSTATE 08/24/2016 DEL BOBLUZ N Ot C79.51 SECONDARY MALIGNANT NEOPLASM OF BONE 08/24/2016 DELJESSICA N Ot Z79.899 OTHER SPECIALTY TRANSFORMER ASSEMBLER (CURRENT) DRUG THERAPY 09/14/2016 CHERRI PENG HYDRAULIC AND PLUMBING INSTALLER Ot 185 MALIGN NEOPL PROSTATE 09/14/2016 CHERRI PENG HYDRAULIC AND PLUMBING INSTALLER Ot 198.5 SECONDARY MALIG KARAN BONE 10/11/2016 DELJESSICA N Ot C61 MALIGNANT NEOPLASM OF PROSTATE 10/11/2016 DELJESSICA N Ot C79.51 SECONDARY MALIGNANT NEOPLASM OF BONE 10/11/2016 DELJESSICA N Ot Z79.899 OTHER CARE HOME (CURRENT) DRUG THERAPY 10/24/2016 DELJESSICA N Ot C61 MALIGNANT NEOPLASM OF PROSTATE 10/24/2016 DEL BOBLUZ N Ot C79.51 SECONDARY MALIGNANT NEOPLASM OF BONE 10/24/2016 DEL BOBLUZ N Ot Z79.899 OTHER CARE HOME (CURRENT) DRUG THERAPY 11/21/2016 DELJESSICA N Ot C61 MALIGNANT NEOPLASM OF PROSTATE 11/21/2016 DEL BOBLUZ N Ot C79.51 SECONDARY MALIGNANT NEOPLASM OF BONE 11/21/2016 DEL BOBLUZ N Ot Z79.899 OTHER SPECIALTY TRANSFORMER ASSEMBLER (CURRENT) DRUG THERAPY 11/22/2016 DEL BOBLUZ N Ot C61 MALIGNANT NEOPLASM OF PROSTATE 11/22/2016 DEL BOBAN N Ot C79.51 SECONDARY MALIGNANT NEOPLASM OF BONE 11/22/2016 DEL BOBAN N Ot Z79.899 OTHER CARE HOME (CURRENT) DRUG THERAPY 02/20/2017 DEL, BOBAN N Ot C61 MALIGNANT NEOPLASM OF PROSTATE 02/20/2017 DEL, BOBAN N Ot C79.51 SECONDARY MALIGNANT NEOPLASM OF BONE 02/20/2017 DEL BOBAN N Ot Z79.899 OTHER SPECIALTY TRANSFORMER ASSEMBLER (CURRENT) DRUG THERAPY 03/12/2017 DEL BOBAN N Ot C61 MALIGNANT NEOPLASM OF PROSTATE 03/12/2017 DEL, BOBAN N Ot C79.51 SECONDARY MALIGNANT NEOPLASM OF BONE 03/12/2017 JESSICA MATHIS N Ot Z79.899 OTHER CARE HOME (CURRENT) DRUG THERAPY 03/13/2017 JESSICA MATHIS N Ot C61 MALIGNANT NEOPLASM OF PROSTATE 03/13/2017 JESSICA MATHIS N Ot C79.51 SECONDARY MALIGNANT NEOPLASM OF BONE 03/13/2017 JESSICA MATHIS N Ot Z79.899 OTHER CARE HOME (CURRENT) DRUG THERAPY 03/14/2017 JESSICA MATHIS N Ot C61 MALIGNANT NEOPLASM OF PROSTATE 03/14/2017 JESSICA MATHIS N Ot C79.51 SECONDARY MALIGNANT NEOPLASM OF BONE 03/14/2017 JESSICA MATHIS N Ot Z79.899 OTHER CARE HOME (CURRENT) DRUG THERAPY 03/14/2017 JESSICA MATHIS N Ot C61 MALIGNANT NEOPLASM OF PROSTATE 03/14/2017 JESSICA MATHIS N Ot C79.51 SECONDARY MALIGNANT NEOPLASM OF BONE 03/14/2017 JESSICA MATHIS N Ot Z79.899 OTHER SPECIALTY TRANSFORMER ASSEMBLER (CURRENT) DRUG THERAPY 03/19/2017 JESSICA MATHIS N Ot C61 MALIGNANT NEOPLASM OF PROSTATE 03/19/2017 JESSICA MATHIS N Ot C79.51 SECONDARY MALIGNANT NEOPLASM OF BONE 03/19/2017 JESSICA MATHIS N Ot Z79.899 OTHER CARE HOME (CURRENT) DRUG THERAPY 04/04/2017 BJ JOYCE, HALIE Jensen Ot R42 DIZZINESS AND GIDDINESS 04/04/2017 HALIE LORENZO MD Ot Z85.46 PERSONAL HISTORY OF MALIGNANT NEOPLASM O 04/11/2017 Ot 185 MALIGN NEOPL PROSTATE 04/11/2017 Ot V72.84 EXAM PRE- OPERATIVE NOS 04/11/2017 CHRISTIAN JOYCE, AKASH Galeano Ot V72.84 EXAM PRE-OPERATIVE NOS 04/11/2017 CHRISTIAN JOYCE, AKASH Galeano Ot 154.1 MALIGNANT NEOPL RECTUM 04/11/2017 AKASH GONZALES MD Ot 185 MALIGN NEOPL PROSTATE 04/11/2017 AKASH GONZALES MD Ot 562.10 DIVERTICULOSIS COLON (W/O MENT OF HEMORR 04/11/2017 AKASH GONZALES MD Ot V15.3 HX OF IRRADIATION 04/11/2017 DELJESSICA Ot 185 MALIGN NEOPL PROSTATE 04/11/2017 JESSICA MATHIS N Ot 793.7 NOSP (ABN) FINDINGS ON RADIOLOGICAL OT 04/11/2017 CHERRI PENG S HYDRAULIC AND PLUMBING INSTALLER Ot 185 MALIGN NEOPL PROSTATE 04/11/2017 DEL JESSICA N Ot 185 MALIGN NEOPL PROSTATE 04/11/2017 DEL BOBBILUZ N Ot 198.5 SECONDARY MALIG KARAN BONE 04/11/2017 JESSICA MATHIS N Ot 781.91 LOSS OF HEIGHT 04/11/2017 DEL BOBBILUZ N Ot 185 MALIGN NEOPL PROSTATE 04/11/2017 JESSICA MATHIS N Ot 198.5 SECONDARY MALIG KARAN BONE 04/11/2017 DEL BOBBILUZ N Ot 733.90 BONE CARTILAGE DIS NOS 04/11/2017 CHERRI PENG S HYDRAULIC AND PLUMBING INSTALLER Ot 185 MALIGN NEOPL PROSTATE 04/11/2017 CHERRI PENG S HYDRAULIC AND PLUMBING INSTALLER Ot 198.5 SECONDARY MALIG KARAN BONE 04/11/2017 CHRISTIAN JOYCE, AKASH Galeano Ot 787.20 DYSPHAGIA, UNSPECIFIED 04/11/2017 AKASH GONZALES MD Ot V72.84 EXAM PRE-OPERATIVE NOS 04/11/2017 CHERRI PENG HYDRAULIC AND PLUMBING INSTALLER Ot C61 MALIGNANT NEOPLASM OF PROSTATE 04/11/2017 CHERRI PENG S HYDRAULIC AND PLUMBING INSTALLER Ot C79.51 SECONDARY MALIGNANT NEOPLASM OF BONE 04/11/2017 CHERRI PENG HYDRAULIC AND PLUMBING INSTALLER Ot 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, UNSPECIFIED 04/11/2017 CHERRI PENG S HYDRAULIC AND PLUMBING INSTALLER Ot R23.2 FLUSHING 04/11/2017 CHERRI PENG S HYDRAULIC AND PLUMBING INSTALLER Ot Z79.899 OTHER CARE HOME (CURRENT) DRUG THERAPY 04/11/2017 JESSICA MATHIS N Ot C61 MALIGNANT NEOPLASM OF PROSTATE 04/11/2017 JESSICA MATHIS N 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 04/11/2017 JESSICA MATHIS N Ot C79.51 SECONDARY MALIGNANT NEOPLASM OF BONE 04/11/2017 CHERRI PENG S HYDRAULIC AND PLUMBING INSTALLER Ot C61 MALIGNANT NEOPLASM OF PROSTATE 04/11/2017 CHERRI PENG S HYDRAULIC AND PLUMBING INSTALLER Ot C79.51 SECONDARY MALIGNANT NEOPLASM OF BONE 04/11/2017 CHERRI PENG S HYDRAULIC AND PLUMBING INSTALLER Ot Z79.899 OTHER CARE HOME (CURRENT) DRUG THERAPY 04/11/2017 JESSICA MATHIS N Ot C61 MALIGNANT NEOPLASM OF PROSTATE 04/11/2017 JESSICA MATHIS N Ot C79.51 SECONDARY MALIGNANT NEOPLASM OF BONE 04/11/2017 DELJESSICA GALARZA N Ot Z79.899 OTHER CARE HOME (CURRENT) DRUG THERAPY 04/12/2017 DELJESSICA GALARZA N Ot C61 MALIGNANT NEOPLASM OF PROSTATE 04/12/2017 DEL BOBAN N Ot C79.51 SECONDARY MALIGNANT NEOPLASM OF BONE 04/12/2017 DELJESSICA GALARZA N Ot Z79.899 OTHER CARE HOME (CURRENT) DRUG THERAPY 05/06/2017 DELJESSICA GALARZA N Ot C61 MALIGNANT NEOPLASM OF PROSTATE 05/06/2017 DELBOBBIAN N Ot C79.51 SECONDARY MALIGNANT NEOPLASM OF BONE 05/06/2017 DELJESSICA N Ot Z79.899 OTHER CARE HOME (CURRENT) DRUG THERAPY 06/26/2017 DELJESSICA GALARZA N Ot C61 MALIGNANT NEOPLASM OF PROSTATE 06/26/2017 DEL BOBAN N Ot C79.51 SECONDARY MALIGNANT NEOPLASM OF BONE 06/26/2017 DEL, BOBLUZ N Ot Z79.899 OTHER CARE HOME (CURRENT) DRUG THERAPY 07/10/2017 DELJESSICA N Ot C61 MALIGNANT NEOPLASM OF PROSTATE 07/10/2017 DEL BOBAN N Ot C79.51 SECONDARY MALIGNANT NEOPLASM OF BONE 07/10/2017 DELJESSICA N Ot Z79.899 OTHER CARE HOME (CURRENT) DRUG THERAPY 08/02/2017 DELJESSICA GALARZA N Ot C61 MALIGNANT NEOPLASM OF PROSTATE 08/02/2017 DEL BOBLUZ N Ot C79.51 SECONDARY MALIGNANT NEOPLASM OF BONE 08/02/2017 JESSICA MATHIS N Ot Z79.899 OTHER SPECIALTY TRANSFORMER ASSEMBLER (CURRENT) DRUG THERAPY 09/06/2017 DELJESSICA N Ot C61 MALIGNANT NEOPLASM OF PROSTATE 09/06/2017 DEL BOBAN N Ot C79.51 SECONDARY MALIGNANT NEOPLASM OF BONE 09/06/2017 DEL BOBAN N Ot Z79.899 OTHER SPECIALTY TRANSFORMER ASSEMBLER (CURRENT) DRUG THERAPY 09/30/2017 DEL BOBAN N Ot C61 MALIGNANT NEOPLASM OF PROSTATE 09/30/2017 DEL BOBAN N Ot C79.51 SECONDARY MALIGNANT NEOPLASM OF BONE 09/30/2017 DEL BOBLUZ N Ot Z79.899 OTHER SPECIALTY TRANSFORMER ASSEMBLER (CURRENT) DRUG THERAPY 10/30/2017 DELJESSICA GALARZA N Ot C61 MALIGNANT NEOPLASM OF PROSTATE 10/30/2017 JESSICA MATHIS N Ot C79.51 SECONDARY MALIGNANT NEOPLASM OF BONE 10/30/2017 JESSICA MATHIS N Ot Z79.899 OTHER SPECIALTY TRANSFORMER ASSEMBLER (CURRENT) DRUG THERAPY 10/31/2017 JESSICA MATHIS N Ot C61 MALIGNANT NEOPLASM OF PROSTATE 10/31/2017 JESSICA MATHIS N Ot C79.51 SECONDARY MALIGNANT NEOPLASM OF BONE 10/31/2017 JESSICA MATHIS N Ot Z79.899 OTHER CARE HOME (CURRENT) DRUG THERAPY 11/21/2017 Ot 185 MALIGN NEOPL PROSTATE 11/21/2017 Ot V72.84 EXAM PRE- OPERATIVE NOS 11/21/2017 CHRISTIAN JOYCE, AKASH Galeano Ot V72.84 EXAM PRE-OPERATIVE NOS 11/21/2017 CHRISTIAN JOYCE, AKASH Galeano Ot 154.1 MALIGNANT NEOPL RECTUM 11/21/2017 CHRISTIAN JOYCE, AKASH Galeano Ot 185 MALIGN NEOPL PROSTATE 11/21/2017 CHRISTIAN JOYCE, AKASH Galeano Ot 562.10 DIVERTICULOSIS COLON (W/O MENT OF HEMORR 11/21/2017 CHRISTIAN JOYCE, AKASH Galeano Ot V15.3 HX OF IRRADIATION 11/21/2017 DEL BOBAN N Ot 185 MALIGN NEOPL PROSTATE 11/21/2017 BOBBI MATHISAN N Ot 793.7 NOSP (ABN) FINDINGS ON RADIOLOGICAL OT 11/21/2017 CHERRI PENG HYDRAULIC AND PLUMBING INSTALLER Ot 185 MALIGN NEOPL PROSTATE 11/21/2017 DEL, BOBAN N Ot 185 MALIGN NEOPL PROSTATE 11/21/2017 DEL, BOBAN N Ot 198.5 SECONDARY MALIG KARAN BONE 11/21/2017 DEL BOBAN N Ot 781.91 LOSS OF HEIGHT 11/21/2017 DEL, BOBAN N Ot 185 MALIGN NEOPL PROSTATE 11/21/2017 DEL, BOBAN N Ot 198.5 SECONDARY MALIG KARAN BONE 11/21/2017 DEL, BOBAN N Ot 733.90 BONE CARTILAGE DIS NOS 11/21/2017 CHERRI PENG S HYDRAULIC AND PLUMBING INSTALLER Ot 185 MALIGN NEOPL PROSTATE 11/21/2017 CHERRI PENG S HYDRAULIC AND PLUMBING INSTALLER Ot 198.5 SECONDARY MALIG KARAN BONE 11/21/2017 CHRISTIAN JOYCE, AKASH Galeano Ot 787.20 DYSPHAGIA, UNSPECIFIED 11/21/2017 CHRISTIAN JOYCE, AKASH Galeano Ot V72.84 EXAM PRE-OPERATIVE NOS 11/21/2017 CHERRI PENG HYDRAULIC AND PLUMBING INSTALLER Ot C61 MALIGNANT NEOPLASM OF PROSTATE 11/21/2017 CHERRI PENG HYDRAULIC AND PLUMBING INSTALLER Ot C79.51 SECONDARY MALIGNANT NEOPLASM OF BONE 11/21/2017 CHERRI PENG HYDRAULIC AND PLUMBING INSTALLER Ot 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, UNSPECIFIED 11/21/2017 CHERRI PENG HYDRAULIC AND PLUMBING INSTALLER Ot R23.2 FLUSHING 11/21/2017 CHERRI PENG HYDRAULIC AND PLUMBING INSTALLER Ot Z79.899 OTHER CARE HOME (CURRENT) DRUG THERAPY 11/21/2017 DELJESSICA GALARZA N Ot C61 MALIGNANT NEOPLASM OF PROSTATE 11/21/2017 DELJESSICA GALARZA N 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 11/21/2017 DEL, BOBAN N Ot C79.51 SECONDARY MALIGNANT NEOPLASM OF BONE 11/21/2017 CHERRI PENG HYDRAULIC AND PLUMBING INSTALLER Ot C61 MALIGNANT NEOPLASM OF PROSTATE 11/21/2017 CHERRI PENG HYDRAULIC AND PLUMBING INSTALLER Ot C79.51 SECONDARY MALIGNANT NEOPLASM OF BONE 11/21/2017 CHERRI PENG HYDRAULIC AND PLUMBING INSTALLER Ot Z79.899 OTHER SPECIALTY TRANSFORMER ASSEMBLER (CURRENT) DRUG THERAPY 01/03/2018 DEL, BOBAN N Ot C61 MALIGNANT NEOPLASM OF PROSTATE 01/03/2018 DEL, BOBAN N Ot C79.51 SECONDARY MALIGNANT NEOPLASM OF BONE 01/03/2018 DEL BOBAN N Ot Z79.899 OTHER CARE HOME (CURRENT) DRUG THERAPY 01/29/2018 DEL BOBAN N Ot C61 MALIGNANT NEOPLASM OF PROSTATE 01/29/2018 DEL BOBAN N Ot C79.51 SECONDARY MALIGNANT NEOPLASM OF BONE 01/29/2018 DEL BOBAN N Ot Z79.899 OTHER SPECIALTY TRANSFORMER ASSEMBLER (CURRENT) DRUG THERAPY 02/19/2018 DEL, BOBAN N Ot C61 MALIGNANT NEOPLASM OF PROSTATE 02/19/2018 DEL, BOBAN N Ot C79.51 SECONDARY MALIGNANT NEOPLASM OF BONE 02/19/2018 DEL, BOBAN N Ot Z79.899 OTHER SPECIALTY TRANSFORMER ASSEMBLER (CURRENT) DRUG THERAPY 02/20/2018 DEL, BOBAN N Ot C61 MALIGNANT NEOPLASM OF PROSTATE 02/20/2018 DEL BOBAN N Ot C79.51 SECONDARY MALIGNANT NEOPLASM OF BONE 02/20/2018 DEL, BOBAN N Ot Z79.899 OTHER SPECIALTY TRANSFORMER ASSEMBLER (CURRENT) DRUG THERAPY 03/17/2018 DEL, BOBAN N Ot C61 MALIGNANT NEOPLASM OF PROSTATE 03/17/2018 DEL BOBAN N Ot C79.51 SECONDARY MALIGNANT NEOPLASM OF BONE 03/17/2018 DEL BOBAN N Ot Z79.899 OTHER SPECIALTY TRANSFORMER ASSEMBLER (CURRENT) DRUG THERAPY 04/04/2018 DEL BOBAN N Ot C61 MALIGNANT NEOPLASM OF PROSTATE 04/04/2018 DEL BOBAN N Ot C79.51 SECONDARY MALIGNANT NEOPLASM OF BONE 04/04/2018 DEL BOBAN N Ot Z79.899 OTHER CARE HOME (CURRENT) DRUG THERAPY 06/11/2018 DEL, BOBAN N Ot C61 MALIGNANT NEOPLASM OF PROSTATE 06/11/2018 DEL, BOBAN N Ot C79.51 SECONDARY MALIGNANT NEOPLASM OF BONE 06/11/2018 DEL, BOBAN N Ot Z79.899 OTHER SPECIALTY TRANSFORMER ASSEMBLER (CURRENT) DRUG THERAPY 06/26/2018 DEL BOBAN N Ot C61 MALIGNANT NEOPLASM OF PROSTATE 06/26/2018 DEL BOBAN N Ot C79.51 SECONDARY MALIGNANT NEOPLASM OF BONE 06/26/2018 DEL BOBAN N Ot Z79.899 OTHER CARE HOME (CURRENT) DRUG THERAPY 06/27/2018 DEL BOBAN N Ot C61 MALIGNANT NEOPLASM OF PROSTATE 06/27/2018 DEL, BOBAN N Ot C79.51 SECONDARY MALIGNANT NEOPLASM OF BONE 06/27/2018 DEL BOBAN N Ot Z79.899 OTHER SPECIALTY TRANSFORMER ASSEMBLER (CURRENT) DRUG THERAPY 07/02/2018 DEL BOBAN N Ot C61 MALIGNANT NEOPLASM OF PROSTATE 07/02/2018 DEL BOBAN N Ot C79.51 SECONDARY MALIGNANT NEOPLASM OF BONE 07/02/2018 DEL BOBAN N Ot Z79.899 OTHER CARE HOME (CURRENT) DRUG THERAPY 07/02/2018 CHRISTIAN JOYCE, AKASH Galeano Ot V72.84 EXAM PRE-OPERATIVE NOS 07/02/2018 CHRISTIAN JOYCE, AKASH Galeano Ot 154.1 MALIGNANT NEOPL RECTUM 07/02/2018 AKASH GONZALES MD, Ot 185 MALIGN NEOPL PROSTATE 07/02/2018 AKASH GONZALES MD Ot 562.10 DIVERTICULOSIS COLON (W/O MENT OF HEMORR 07/02/2018 AKASH GONZALES MD, Ot V15.3 HX OF IRRADIATION 07/02/2018 JESSICA MATHIS N Ot 185 MALIGN NEOPL PROSTATE 07/02/2018 JESSICA MATHIS N Ot 793.7 NOSP (ABN) FINDINGS ON RADIOLOGICAL OT 07/02/2018 CHERRI PENG S HYDRAULIC AND PLUMBING INSTALLER Ot 185 MALIGN NEOPL PROSTATE 07/02/2018 DEL BOBAN N Ot 185 MALIGN NEOPL PROSTATE 07/02/2018 DEL BOBAN N Ot 198.5 SECONDARY MALIG KARAN BONE 07/02/2018 DEL BOBAN N Ot 781.91 LOSS OF HEIGHT 07/02/2018 JESSICA MATHIS N Ot 185 MALIGN NEOPL PROSTATE 07/02/2018 DELJESSICA N Ot 198.5 SECONDARY MALIG KARAN BONE 07/02/2018 DELBOBBI GALARZAAN N Ot 733.90 BONE CARTILAGE DIS NOS 07/02/2018 CHERRI PENG S HYDRAULIC AND PLUMBING INSTALLER Ot 185 MALIGN NEOPL PROSTATE 07/02/2018 CHERRI PENG S HYDRAULIC AND PLUMBING INSTALLER Ot 198.5 SECONDARY MALIG KARAN BONE 07/02/2018 CHRISTIAN JOYCE, AKASH Galeano Ot 787.20 DYSPHAGIA, UNSPECIFIED 07/02/2018 CHRISTIAN JOYCE, AKASH Galeano Ot V72.84 EXAM PRE-OPERATIVE NOS 07/02/2018 CHERRI PENG HYDRAULIC AND PLUMBING INSTALLER Ot C61 MALIGNANT NEOPLASM OF PROSTATE 07/02/2018 CHERRI PENG S HYDRAULIC AND PLUMBING INSTALLER Ot C79.51 SECONDARY MALIGNANT NEOPLASM OF BONE 07/02/2018 CHERRI PENG HYDRAULIC AND PLUMBING INSTALLER Ot 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, UNSPECIFIED 07/02/2018 CHERRI PENG S HYDRAULIC AND PLUMBING INSTALLER Ot R23.2 FLUSHING 07/02/2018 CHERRI PENG S HYDRAULIC AND PLUMBING INSTALLER Ot Z79.899 OTHER SPECIALTY TRANSFORMER ASSEMBLER (CURRENT) DRUG THERAPY 07/02/2018 JESSICA MATHIS N Ot C61 MALIGNANT NEOPLASM OF PROSTATE 07/02/2018 DELBOBBILUZ N 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 07/02/2018 DEL BOBBILUZ N Ot C79.51 SECONDARY MALIGNANT NEOPLASM OF BONE 07/02/2018 CHERRI PENG S HYDRAULIC AND PLUMBING INSTALLER Ot C61 MALIGNANT NEOPLASM OF PROSTATE 07/02/2018 CHERRI PENG S HYDRAULIC AND PLUMBING INSTALLER Ot C79.51 SECONDARY MALIGNANT NEOPLASM OF BONE 07/02/2018 CHERRI PENG S HYDRAULIC AND PLUMBING INSTALLER Ot Z79.899 OTHER SPECIALTY TRANSFORMER ASSEMBLER (CURRENT) DRUG THERAPY 07/02/2018 LIAM SANTANA, BALDO Sigala Ot M47.812 SPONDYLOSIS [...] 07/13/2018 AMOL PIERSON MD Ot Z79.899 OTHER CARE HOME (CURRENT) DRUG THERAPY 07/15/2018 AMOL PIERSON MD Ot C61 MALIGNANT NEOPLASM OF PROSTATE 07/15/2018 AMOL PIERSON MD Ot C79.51 SECONDARY MALIGNANT NEOPLASM OF BONE 07/15/2018 AMOL PIERSON MD Ot Z79.899 OTHER CARE HOME (CURRENT) DRUG THERAPY 07/23/2018 BALDO WHEELER DC [...] SEGMENTAL AND SOMATIC DYSFUNCTION OF THO 07/23/2018 TAYLA WHEELER DCA Zakiya Ot 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 07/29/2018 AMOL PIERSON MD Ot C61 MALIGNANT NEOPLASM OF PROSTATE 07/29/2018 AMOL PIERSON MD 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 07/29/2018 AMOL PIERSON MD Ot C79.51 SECONDARY MALIGNANT NEOPLASM OF BONE 08/04/2018 BALDO WHEELER DC J Ot 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 OR RADICULOPA 08/04/2018 BALDO WHEELER DC J Ot M47.816 SPONDYLOSIS W/O MYELOPATHY OR RADICULOPA 08/04/2018 BALDO WHEELER DC J Ot 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], THO 08/04/2018 BALDO WHEELER DC Ot M51.37 OTHER INTERVERTEBRAL DISC DEGENERATION, 08/04/2018 BALDO WHEELER DC Ot 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 08/04/2018 BALDO WHEELER DC Ot 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 08/04/2018 BALDO WHEELER DC Ot 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 08/05/2018 CHRISTIAN JOYCE, AKASH Galeano Ot V72.84 EXAM PRE-OPERATIVE NOS 08/05/2018 AKASH GONZALES MD Ot 154.1 MALIGNANT NEOPL RECTUM 08/05/2018 AKASH GONZALES MD Ot 185 MALIGN NEOPL PROSTATE 08/05/2018 AKASH GONZALES MD Ot 562.10 DIVERTICULOSIS COLON (W/O MENT OF HEMORR 08/05/2018 AKASH GONZALES MD Ot V15.3 HX OF IRRADIATION 08/05/2018 JESSICA MATHIS Ot 185 MALIGN NEOPL PROSTATE 08/05/2018 JESSICA MATHIS Ot 793.7 NOSP (ABN) FINDINGS ON RADIOLOGICAL OT 08/05/2018 CHERRI PENG HYDRAULIC AND PLUMBING INSTALLER Ot 185 MALIGN NEOPL PROSTATE 08/05/2018 JESSICA MATHIS Ot 185 MALIGN NEOPL PROSTATE 08/05/2018 JESSICA MATHIS Ot 198.5 SECONDARY MALIG KARAN BONE 08/05/2018 JESSICA MATHIS Ot 781.91 LOSS OF HEIGHT 08/05/2018 DEL JESSICA Bob Ot 185 MALIGN NEOPL PROSTATE 08/05/2018 JESSICA MATHIS N Ot 198.5 SECONDARY MALIG KARAN BONE 08/05/2018 DEL BOBBILUZ Paulino Ot 733.90 BONE CARTILAGE DIS NOS 08/05/2018 CHERRI PENG HYDRAULIC AND PLUMBING INSTALLER Ot 185 MALIGN NEOPL PROSTATE 08/05/2018 CHERRI PENG HYDRAULIC AND PLUMBING INSTALLER Ot 198.5 SECONDARY MALIG KARAN BONE 08/05/2018 AKASH GONZALES MD Ot 787.20 DYSPHAGIA, UNSPECIFIED 08/05/2018 AKASH GONZALES MD Ot V72.84 EXAM PRE-OPERATIVE NOS 08/05/2018 CHERRI PENG HYDRAULIC AND PLUMBING INSTALLER Ot C61 MALIGNANT NEOPLASM OF PROSTATE 08/05/2018 CHERRI PENG HYDRAULIC AND PLUMBING INSTALLER Ot C79.51 SECONDARY MALIGNANT NEOPLASM OF BONE 08/05/2018 CHERRI PENGP Ot 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, UNSPECIFIED 08/05/2018 CHERRI PENG HYDRAULIC AND PLUMBING INSTALLER Ot R23.2 FLUSHING 08/05/2018 CHERRI PENG S HYDRAULIC AND PLUMBING INSTALLER Ot Z79.899 OTHER SPECIALTY TRANSFORMER ASSEMBLER (CURRENT) DRUG THERAPY 08/05/2018 DEL JESSICA Bob Ot C61 MALIGNANT NEOPLASM OF PROSTATE 08/05/2018 JESSICA MATHIS Paulino 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 08/05/2018 DEL, JESSICA Bob Ot C79.51 SECONDARY MALIGNANT NEOPLASM OF BONE 08/05/2018 CHERRI PENG HYDRAULIC AND PLUMBING INSTALLER Ot C61 MALIGNANT NEOPLASM OF PROSTATE 08/05/2018 CHERRI PENG HYDRAULIC AND PLUMBING INSTALLER Ot C79.51 SECONDARY MALIGNANT NEOPLASM OF BONE 08/05/2018 CHERRI PENG HYDRAULIC AND PLUMBING INSTALLER Ot Z79.899 OTHER CARE HOME (CURRENT) DRUG THERAPY 08/05/2018 BALDO WHEELER DC Ot 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 OR RADICULOPA 08/05/2018 BALDO WHEELER DC, Ot M47.816 SPONDYLOSIS W/O MYELOPATHY OR RADICULOPA 08/05/2018 BALDO WHEELER DC Ot 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], THO 08/05/2018 BALDO WHEELER DC Ot M51.37 OTHER INTERVERTEBRAL DISC DEGENERATION, 08/05/2018 LIAM SANTANA, BALDO J Ot 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 08/05/2018 LIAM SANTANA, BALDO J Ot 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 08/05/2018 LIAM SANTANA, BALDO J Ot 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 08/05/2018 AMOL PIERSON MD Ot C61 MALIGNANT NEOPLASM OF PROSTATE 08/05/2018 AMOL PIERSON MD Ot C78.5 SECONDARY MALIGNANT [...] MALIGNANT NEOPLASM OF PROSTATE 08/19/2018 AMOL PIERSON MD Ot C78.5 SECONDARY MALIGNANT [...] R82.90 UNSPECIFIED ABNORMAL FINDINGS IN URINE 09/22/2018 AKSAH GONZALES MD Ot C61 MALIGNANT NEOPLASM OF [...] C79.51 SECONDARY MALIGNANT NEOPLASM OF BONE 10/21/2018 DEL JESSICA N Ot C61 MALIGNANT NEOPLASM OF PROSTATE 10/21/2018 BOBBI MATHISLUZ N 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 10/21/2018 BOBBI MATHISLUZ N Ot C79.51 SECONDARY MALIGNANT [...] MD Ot R55 SYNCOPE AND COLLAPSE 10/23/2018 HALIE LORENZO MD Ot Z79.899 OTHER CARE HOME (CURRENT) DRUG THERAPY 10/23/2018 HALIE LORENZO MD Ot Z91.81 HISTORY OF FALLING 10/23/2018 HALIE LORENZO MD Ot Z92.3 PERSONAL HISTORY OF IRRADIATION 2018 NOEL HARO BRAYDEN Ot C61 MALIGNANT NEOPLASM OF PROSTATE 2018 BRAYDEN COHEN DO Ot 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 2018 BRAYDEN COHEN DO 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 2018 DIONE COHEN DOI Ot 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 2018 DIONE COHEN DOI Ot K22.10 ULCER OF ESOPHAGUS WITHOUT BLEEDING 2018 COHEN DO, BRAYDEN Ot K22.2 ESOPHAGEAL OBSTRUCTION 2018 COHEN DO, BRAYDEN Ot K29.70 GASTRITIS, UNSPECIFIED, WITHOUT BLEEDING 2018 COHEN DO, BRAYDEN Ot K29.80 DUODENITIS WITHOUT BLEEDING 2018 COHEN DO, BRAYDEN Ot K59.03 DRUG INDUCED CONSTIPATION 2018 COHEN DO, BRAYDEN Ot M48.061 SPINAL STENOSIS, LUMBAR REGION WITHOUT N 2018 OCHEN DO, BRAYDEN Ot M51.36 OTHER INTERVERTEBRAL DISC DEGENERATION, 2018 COHEN DO, BRAYDEN Ot R13.14 DYSPHAGIA, PHARYNGOESOPHAGEAL PHASE 2018 COHEN DO, BRAYDEN Ot R26.81 UNSTEADINESS ON FEET 2018 COHEN DO, BRAYDEN Ot R29.6 REPEATED FALLS 2018 COHEN DO, BRAYDEN Ot R29.898 OTH SYMPTOMS AND SIGNS INVOLVING THE MUS 2018 COHEN DO BRAYDEN Ot R31.0 GROSS HEMATURIA 2018 COHEN DO BRAYDEN Ot R33.9 RETENTION OF URINE, UNSPECIFIED 2018 COHEN DO BRAYDEN Ot R41.0 DISORIENTATION, UNSPECIFIED 2018 COHEN DO, BRAYDEN Ot R42 DIZZINESS AND GIDDINESS 10/30/2018 [...] OBSTRUCTION 10/30/2018 EDGARDO BURNS DO Ot Z79.82 CARE HOME (CURRENT) USE OF ASPIRIN 10/30/2018 DELMAN DO, EDGARDO B Ot Z79.899 OTHER SPECIALTY TRANSFORMER ASSEMBLER (CURRENT) DRUG THERAPY 10/30/2018 DELMAN DO, EDGARDO B Ot Z87.891 PERSONAL HISTORY OF NICOTINE DEPENDENCE 11/05/2018 DELMAN DO, EDGARDO B Ot C61 MALIGNANT NEOPLASM OF PROSTATE 11/05/2018 [...] Ot K44.9 DIAPHRAGMATIC HERNIA WITHOUT OBSTRUCTION 11/05/2018 QAMARMAN DO, EDGARDO B Ot 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 11/05/2018 QAMARMAN DO, EDGARDO B Ot Z79.899 OTHER SPECIALTY TRANSFORMER ASSEMBLER (CURRENT) DRUG THERAPY 11/05/2018 DELMAN DO, EDGARDO B Ot Z87.891 PERSONAL HISTORY OF NICOTINE DEPENDENCE 11/17/2018 QAMARMAN DO, EDGARDO B Ot C61 MALIGNANT NEOPLASM OF PROSTATE 11/17/2018 QAMARMAN DO, EDGARDO B Ot 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 11/17/2018 QAMARMAN DO, EDGARDO B Ot K21.9 GASTRO-ESOPHAGEAL REFLUX [...] Ot K44.9 DIAPHRAGMATIC HERNIA WITHOUT OBSTRUCTION 11/17/2018 QAMARMAN DO, EDGARDO B Ot Z79.82 CARE HOME (CURRENT) USE OF ASPIRIN 11/17/2018 DELMAN DO, EDGARDO B Ot Z79.899 OTHER SPECIALTY TRANSFORMER ASSEMBLER (CURRENT) DRUG THERAPY 11/17/2018 GRANT HARO, EDGARDO B Ot Z87.891 PERSONAL HISTORY OF NICOTINE DEPENDENCE 11/24/2018 AKASH GONZALES MD Ot C61 MALIGNANT NEOPLASM OF PROSTATE 11/24/2018 AKASH GONZALES MD Ot M48.00 SPINAL STENOSIS, SITE UNSPECIFIED 11/24/2018 AKASH GONZALES MD Ot R53.81 OTHER MALAISE 11/25/2018 AKASH GONZALES MD Ot C61 MALIGNANT NEOPLASM OF PROSTATE 11/25/2018 AKASH GONZALES MD Ot M48.00 SPINAL STENOSIS, SITE UNSPECIFIED 11/25/2018 AKASH GONZALES MD Ot R53.81 OTHER MALAISE 12/09/2018 QAMARJAYDA DO EDGARDO B Ot C61 MALIGNANT NEOPLASM OF PROSTATE 12/09/2018 GRANT DO, EDGARDO B Ot 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 12/09/2018 QAMARJAYDA DO EDGARDO B Ot K21.9 GASTRO-ESOPHAGEAL REFLUX DISEASE WITHOUT 12/09/2018 QAMARJAYDA DO, EDGARDO B Ot K22.10 ULCER OF ESOPHAGUS WITHOUT BLEEDING 12/09/2018 QAMARJAYDA , EDGARDO B Ot K26.9 DUODENAL ULCER, UNSP ACUTE OR CHRONIC 12/09/2018 QAMARJAYDA DO, EDGARDO B Ot K29.50 UNSPECIFIED CHRONIC GASTRITIS WITHOUT BL 12/09/2018 QAMARJAYDA DO, EDGARDO B Ot K29.80 DUODENITIS WITHOUT BLEEDING 12/09/2018 QAMARJAYDA , EDGARDO B Ot K44.9 DIAPHRAGMATIC HERNIA WITHOUT OBSTRUCTION 12/09/2018 QAMARJAYDA DO EDGARDO B Ot Z79.82 CARE HOME (CURRENT) USE OF ASPIRIN 12/09/2018 QAMARJAYDA , EDGARDO B Ot Z79.899 OTHER SPECIALTY TRANSFORMER ASSEMBLER (CURRENT) DRUG THERAPY 12/09/2018 QAMARJAYDA , EDGARDO B Ot Z87.891 PERSONAL HISTORY OF NICOTINE DEPENDENCE 01/02/2019 JESSICA MATHIS Ot C61 MALIGNANT NEOPLASM OF PROSTATE 01/02/2019 JESSICA MATHIS 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 01/02/2019 JESSICA MATHIS Ot 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 01/02/2019 JESSICA MATHIS Ot C79.51 SECONDARY MALIGNANT NEOPLASM OF BONE 01/02/2019 JESSICA MATHIS Paulino Ot 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, UNSPECIFIED 01/02/2019 JESSICA MATHIS Ot Z79.82 CARE HOME (CURRENT) USE OF ASPIRIN 01/02/2019 JESSICA MATHIS Paulino Ot Z79.899 OTHER SPECIALTY TRANSFORMER ASSEMBLER (CURRENT) DRUG THERAPY 01/02/2019 AKASH GONZALES MD Ot C61 MALIGNANT NEOPLASM OF PROSTATE 01/02/2019 AKASH GONZALES MD Ot M48.00 SPINAL STENOSIS, SITE UNSPECIFIED 01/02/2019 AKASH GONZALES MD Ot R53.81 OTHER MALAISE 01/05/2019 CHERRI PENG S HYDRAULIC AND PLUMBING INSTALLER Ot C61 MALIGNANT NEOPLASM OF PROSTATE 01/05/2019 CHERRI PENG S HYDRAULIC AND PLUMBING INSTALLER 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 01/05/2019 CHERRI PENG S HYDRAULIC AND PLUMBING INSTALLER Ot C79.51 SECONDARY MALIGNANT NEOPLASM OF BONE 01/05/2019 CHERRI PENG S HYDRAULIC AND PLUMBING INSTALLER Ot N13.30 UNSPECIFIED HYDRONEPHROSIS 01/05/2019 CHERRI PENG S HYDRAULIC AND PLUMBING INSTALLER Ot N32.89 OTHER SPECIFIED DISORDERS OF BLADDER 01/05/2019 CHERRI PENG S HYDRAULIC AND PLUMBING INSTALLER Ot R91.8 OTHER NONSPECIFIC ABNORMAL FINDING OF CARLITO 01/09/2019 MAYUR RODRIGUEZ MD Ot N28.89 OTHER SPECIFIED DISORDERS OF KIDNEY AND 01/09/2019 MAYUR RODRIGUEZ MD Ot R31.21 ASYMPTOMATIC MICROSCOPIC HEMATURIA 01/09/2019 MAYUR RODRIGUEZ MD Ot R42 DIZZINESS AND GIDDINESS 01/09/2019 MAYUR RODRIGUEZ MD Ot W01.198A FALL SAME LEV FROM SLIP/TRIP W STRIKE AG 01/09/2019 MAYUR RODRIGUEZ MD Ot Z79.02 CARE HOME (CURRENT) USE OF ANTITHROMBOTI 01/09/2019 MAYUR RODRIGUEZ MD Ot 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 01/09/2019 MAYUR RODRIGUEZ MD Ot Z85.46 PERSONAL HISTORY OF MALIGNANT NEOPLASM O 01/09/2019 MAYUR RODRIGUEZ MD Ot Z87.891 PERSONAL HISTORY OF NICOTINE DEPENDENCE 01/09/2019 MAYUR RODRIGUEZ MD Ot Z88.8 ALLERGY STATUS TO OT DRUG/MEDS/BIOL SUB 01/20/2019 AKASH GONZALES MD Ot C61 MALIGNANT NEOPLASM OF PROSTATE 01/20/2019 CHRISTIAN JOYCE, AKASH Galeano Ot M48.00 SPINAL STENOSIS, SITE UNSPECIFIED 01/20/2019 CHRISTIAN JOYCE, AKASH Galeano Ot R53.81 OTHER MALAISE 01/22/2019 CHERRI PENG HYDRAULIC AND PLUMBING INSTALLER Ot C61 MALIGNANT NEOPLASM OF PROSTATE 01/22/2019 CHERRI PENG HYDRAULIC AND PLUMBING INSTALLER 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 01/22/2019 CHERRI PENG HYDRAULIC AND PLUMBING INSTALLER Ot C79.51 SECONDARY MALIGNANT NEOPLASM OF BONE 01/22/2019 CHERRI PENG HYDRAULIC AND PLUMBING INSTALLER Ot N13.30 UNSPECIFIED HYDRONEPHROSIS 01/22/2019 CHERRI PENG HYDRAULIC AND PLUMBING INSTALLER Ot N32.89 OTHER SPECIFIED DISORDERS OF BLADDER 01/22/2019 CHERRI PENG HYDRAULIC AND PLUMBING INSTALLER Ot R91.8 OTHER NONSPECIFIC ABNORMAL FINDING OF CARLITO Procedures Code Description Performed By Performed On [id number] INSPECTION OF BLADDER, ENDO 10/24/2018 Results Test [...] Staphylococcus aureus (MRSA) screening culture NEG NRG Complete urinalysis with reflex to culture - 01/07/19 10:05 Urine color determination YELLOW NRG Urine clarity determination SLIGHTLY CLOUDY NRG Urine pH measurement by test strip 6 5-9 Specific gravity of urine by test [...] NORMAL Urine leukocyte esterase detection by dipstick 1+ NEGATIVE Automated urine sediment erythrocyte count by microscopy (number/high power field) [HPF] NRG Automated urine sediment leukocyte count by microscopy (number/high power field ) [HPF] NRG Bacteria detection in urine sediment by light microscopy TRACE NRG Squamous epithelial cells detection in urine sediment by light microscopy 0-2 NRG Crystals detection in urine sediment by light microscopy NONE NRG Casts detection in urine sediment by light microscopy NONE NRG Mucus detection in urine sediment by light microscopy NEGATIVE NRG Complete urinalysis with reflex to culture NO NRG Comprehensive metabolic panel - 01/07/19 10:05 Serum or plasma sodium measurement (moles/volume) 136 mmol/L 135-145 Serum or plasma potassium measurement (moles/volume) 3.8 mmol/L 3.6-5.0 Serum or plasma chloride measurement (moles/volume) 100 mmol/L 98-107 Carbon dioxide 24 mmol/L 21-32 Serum or plasma anion gap determination (moles/volume) 12 mmol/L 5-14 Serum or plasma urea nitrogen measurement (mass/volume) 18 mg/dL 7-18 Serum or plasma creatinine measurement (mass/volume) 1.57 mg/dL 0.60-1.30 Serum or plasma urea nitrogen/creatinine mass ratio 11 NRG Serum or plasma creatinine measurement with calculation of estimated glomerular filtration rate 42 NRG Serum or plasma glucose measurement (mass/volume) 83 mg/dL 70-105 Serum or plasma calcium measurement (mass/volume) 9.3 mg/dL 8.5-10.1 Serum or plasma total bilirubin measurement (mass/volume) 1.1 mg/dL 0.1-1.0 Serum or plasma alkaline phosphatase measurement (enzymatic activity/volume) 106 U/L 40-136 Serum or plasma aspartate aminotransferase measurement (enzymatic activity/ volume) 20 U/L 5-34 Serum or plasma alanine aminotransferase measurement (enzymatic activity/volume ) 9 U/L 0-55 Serum or plasma protein measurement (mass/volume) 6.8 g/dL 6.4-8.2 Serum or plasma albumin measurement (mass/volume) 4.0 g/dL 3.2-4.5 CALCIUM CORRECTED 9.3 mg/dL 8.5-10.1 Magnesium - 01/07/19 10:05 Magnesium 2.0 mg/dL 1.8-2.4 Encounters ACCT No. Visit Date/Time Discharge Status Pt. Type Provider Facility Loc./Unit Complaint [id number] 01/19/2019 00:00:01 Document Registration [id number] 01/13/2019 13:24:19 Document Registration [id number] 09/20/2014 00:00:00 09/20/2014 23:59:59 CLS Outpatient DONAVAN ALANIZ DDS [id number] 01/25/2019 13:34:00 01/25/2019 14:17:00 DIS Emergency CAMELIA GROVES [facility] ER NEPHROSTOMY BAG LEAKING [id number] 01/07/2019 09:49:00 01/07/2019 12:10:00 DIS Outpatient MAYUR RODRIGUEZ MD [facility] ER WEAKNESS;NOT EATING;HIGH BP [id number] 01/05/2019 13:09:00 01/05/2019 23:59:59 CLS Outpatient JESSICA MATHIS [facility] ONC [id number] 01/01/2019 11:13:00 01/01/2019 23:59:59 CLS Outpatient AKASH GONZALES MD [facility] REHAB SPINAL STENOSIS; PROSTATE CANCER DECONDITIONING [id number] 12/05/2018 10:15:00 12/05/2018 23:59:59 CLS Outpatient CHERRI PENG [facility] RAD IMAGING STUDY TO RESTAGE NEOPLASM [id number] 10/23/2018 10:05:00 2018 13:35:00 DIS Inpatient BRAYDEN COHEN DO [facility] IRF DEBILITY, SPINAL STENOSIS [id number] 10/25/2018 10:26:00 10/25/2018 23:59:59 CLS Outpatient EDGARDO BURNS DO [facility] ENDO SCOPE [id number] 10/21/2018 08:00:00 10/23/2018 10:00:00 DIS Outpatient BJ JOYCE, HALIE Jensen [facility] 4TH INTRACTABLE VERTIGO;S/P FALL; HEAD INJURY W/O [id number] 10/20/2018 10:55:00 10/20/2018 00:01:00 DIS Outpatient JESSICA MATHIS [facility] ONC [id number] 08/21/2018 13:53:00 08/21/2018 23:59:59 CLS Outpatient AKASH GONZALES MD [facility] LAB HEMATURIA [id number] 08/06/2018 12:16:00 08/06/2018 23:59:59 CLS Outpatient AKASH GONZALES MD [facility] RAD DIZZINESS,NAUSEA, PROSTATE CA W/ LUNG METASIS [id number] 07/03/2018 13:38:00 07/13/2018 00:01:00 DIS Outpatient AMOL PIERSON MD [facility] ONC [id number] 07/08/2018 12:04:00 07/08/2018 23:59:59 CLS Outpatient AMOL PIERSON MD [facility] CARD C61 PROSTATE CA [id number] 06/26/2018 10:59:00 07/02/2018 15:58:00 DIS Outpatient JESSICA MATHIS [facility] ONC [id number] 06/30/2018 10:09:00 06/30/2018 23:59:59 CLS Outpatient LIAM SANTANA, BALDO Sigala [facility] RAD M54.2 [id number] 03/20/2018 13:06:00 06/11/2018 00:01:00 DIS Outpatient JESSICA MATHIS [facility] ONC [id number] 12/26/2017 13:08:00 02/19/2018 00:01:00 DIS Outpatient JESSICA MATHIS [facility] ONC [id number] 08/08/2017 10:37:00 10/30/2017 00:01:00 DIS Outpatient JESSICA MATHIS [facility] ONC [id number] 04/18/2017 13:09:00 07/10/2017 00:01:00 DIS Outpatient JESSICA MATHIS [facility] ONC [id number] 04/04/2017 13:24:00 04/04/2017 15:24:00 DIS Emergency BJ JOYCE, HALIE Jensen [facility] ER DIZZY SPELLS [id number] 12/20/2016 13:02:00 03/13/2017 00:01:00 DIS Outpatient JESSICA MATHIS [facility] ONC [id number] 08/30/2016 09:37:00 11/21/2016 00:01:00 DIS Outpatient JESSICA MATHIS [facility] ONC [id number] 05/11/2016 10:03:00 07/23/2016 14:53:00 DIS Outpatient JESSICA MATHIS [facility] ONC [id number] 05/11/2016 10:00:00 05/11/2016 23:59:59 CLS Outpatient CHERRI PENG [facility] ONC [id number] 03/23/2016 07:06:00 03/23/2016 09:05:00 DIS Outpatient AKASH GONZALES MD [facility] SDC FOLLOW UP PROSTATE CANCER [id number] 03/22/2016 06:09:00 03/22/2016 08:56:00 DIS Outpatient AKASH GONZALES MD [facility] PREOP FOLLOW UP PROSTATE CANCER [id number] 02/16/2016 09:50:00 02/22/2016 00:01:00 DIS Outpatient JESSICA MATHIS [facility] ONC [id number] 02/10/2016 10:24:00 02/10/2016 23:59:59 CLS Outpatient JESSICA MATHIS [facility] CARD PROSTATE CA [id number] 11/17/2015 10:57:00 11/23/2015 00:01:00 DIS Outpatient JESSICA MATHIS [facility] ONC [id number] 09/01/2015 13:06:00 09/01/2015 23:59:59 CLS Outpatient CHERRI PENGP [facility] ONC [id number] 06/09/2015 13:10:00 07/13/2015 00:01:00 DIS Outpatient JESSICA MATHIS [facility] ONC [id number] 05/31/2015 08:36:00 05/31/2015 11:45:00 DIS Outpatient AKASH GONZALES MD [facility] SDC DYSPHAGIA [id number] 05/27/2015 05:44:00 05/27/2015 23:59:59 CLS Outpatient AKASH GONZALES MD [facility] PREOP DYSPHAGIA [id number] 03/17/2015 10:04:00 03/23/2015 00:01:00 DIS Outpatient JESSICA MATHIS [facility] ONC [id number] 03/17/2015 10:10:00 03/17/2015 23:59:59 CLS Outpatient CHERRI PENG [facility] ONC [id number] 03/10/2015 08:07:00 03/10/2015 23:59:59 CLS Outpatient JESSICA MATHIS [facility] CARD 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 [id number] 03/10/2015 08:03:00 03/10/2015 23:59:59 CLS Outpatient JESSICA MATHIS [facility] RAD OSTEOPOROSIS BY MEDICATIONS [id number] 09/30/2014 13:56:00 11/21/2014 00:01:00 DIS Outpatient JESSICA MATHIS [facility] ONC [id number] 11/11/2014 10:21:00 11/11/2014 12:28:00 DIS Emergency BJ JOYCE, HALIE Jensen [facility] ER LEFT LEG INJURY [id number] 09/30/2014 02:45:00 09/30/2014 23:59:59 CLS Outpatient CHERIR PENGP [facility] ONC [id number] 08/30/2014 10:42:00 08/30/2014 23:59:59 CLS Outpatient JESSICA MATHIS [facility] CARD COLON CA [id number] 08/16/2014 12:53:00 08/16/2014 17:03:00 DIS Emergency AGNES CALHOUN MD [facility] ER URINARY TROUBLE [id number] 08/10/2014 07:47:00 08/10/2014 23:59:59 CLS Outpatient AKASH GONZALES MD [facility] SDC RECTAL MASS [id number] 08/06/2014 07:08:00 08/06/2014 23:59:59 CLS Outpatient AKASH GONZALES MD [facility] PREOP RECTAL MASS [id number] 12/23/2012 06:53:00 Document Registration [id number] 12/19/2012 08:09:00 Document Registration [id number] 08/15/2012 10:54:00 Document Registration [id number] 06/13/2011 09:33:00 Document Registration
== END 2019-01-25 14:17 | disposition home or self-care (01) ==
LOC: EDUNIT# 13:33 → ER 13:34
DX: T83.092A Other mechanical complication of nephrostomy catheter, initial encounter (principal); Z88.8 Allergy status to other drugs, medicaments and biological substances; Z79.82 Long term (current) use of aspirin; Z87.891 Personal history of nicotine dependence; Z98.890 Other specified postprocedural states; Z85.46 Personal history of malignant neoplasm of prostate; Z92.21 Personal history of antineoplastic chemotherapy
CPT/HCPCS: 99281

== ENCOUNTER 2019-02-23 13:36 | Outpatient (RCR) | payer MEDICARE, OTHER ==
[2018-11-27 14:17] LABS: BASOPHILS # (AUTO) 0.1 10^3/uL (0.0-0.1); BASOPHILS % (AUTO) 1 % (0-10); EOSINOPHILS # (AUTO) 0.7 10^3/uL (0.0-0.3); EOSINOPHILS % (AUTO) 13 % (0-10); HEMATOCRIT 34 % (40-54); HEMOGLOBIN 11.2 G/DL (13.3-17.7); LYMPHOCYTES # (AUTO) 1.5 X 10^3 (1.0-4.0); LYMPHOCYTES % (AUTO) 29 % (12-44); MEAN CORPUSCULAR HEMOGLOBIN 29 PG (25-34); MEAN CORPUSCULAR HGB CONC 33 G/DL (32-36); MEAN CORPUSCULAR VOLUME 89 FL (80-99); MEAN PLATELET VOLUME 8.9 FL (7.4-10.4); MONOCYTES # (AUTO) 0.5 X 10^3 (0.0-1.0); MONOCYTES % (AUTO) 10 % (0-12); NEUTROPHILS # (AUTO) 2.4 X 10^3 (1.8-7.8); NEUTROPHILS % (AUTO) 47 % (42-75); PLATELET COUNT 273 10^3/uL (130-400); RED CELL DISTRIBUTION WIDTH 12.2 % (10.0-14.5); WHITE BLOOD COUNT 5.2 10^3/uL (4.3-11.0)
[2018-11-27 14:36] LABS: ALANINE AMINOTRANSFERASE 8 U/L (0-55); ALBUMIN 3.8 GM/DL (3.2-4.5); ALKALINE PHOSPHATASE 98 U/L (40-136); BILIRUBIN,TOTAL 0.6 MG/DL (0.1-1.0); BUN/CREATININE RATIO 13; CALCIUM 8.9 MG/DL (8.5-10.1); CARBON DIOXIDE 27 MMOL/L (21-32); CHLORIDE 108 MMOL/L (98-107); GFR ESTIMATED > 60; GLUCOSE 100 MG/DL (70-105); POTASSIUM 3.8 MMOL/L (3.6-5.0); SODIUM 141 MMOL/L (135-145); TOTAL PROTEIN 6.6 GM/DL (6.4-8.2)
[2019-02-23 13:50] LABS: BASOPHILS # (AUTO) 0.1 10^3/uL (0.0-0.1); BASOPHILS % (AUTO) 1 % (0-10); EOSINOPHILS # (AUTO) 0.3 10^3/uL (0.0-0.3); EOSINOPHILS % (AUTO) 5 % (0-10); HEMATOCRIT 31 % (40-54); LYMPHOCYTES # (AUTO) 1.2 X 10^3 (1.0-4.0); LYMPHOCYTES % (AUTO) 19 % (12-44); MEAN CORPUSCULAR HEMOGLOBIN 28 PG (25-34); MEAN CORPUSCULAR HGB CONC 32 G/DL (32-36); MEAN CORPUSCULAR VOLUME 89 FL (80-99); MEAN PLATELET VOLUME 8.2 FL (7.4-10.4); MONOCYTES # (AUTO) 0.7 X 10^3 (0.0-1.0); MONOCYTES % (AUTO) 11 % (0-12); NEUTROPHILS # (AUTO) 4.1 X 10^3 (1.8-7.8); NEUTROPHILS % (AUTO) 65 % (42-75); PLATELET COUNT 482 10^3/uL (130-400); RED CELL DISTRIBUTION WIDTH 12.1 % (10.0-14.5); WHITE BLOOD COUNT 6.3 10^3/uL (4.3-11.0)
[2019-02-23 14:12] LABS: ALBUMIN 3.6 GM/DL (3.2-4.5); BILIRUBIN,TOTAL 0.3 MG/DL (0.1-1.0); CALCIUM 9.4 MG/DL (8.5-10.1); CREATININE SERUM 1.17 MG/DL (0.60-1.30); TOTAL PROTEIN 6.8 GM/DL (6.4-8.2)
[2019-02-23] MEDS ORDERED: LEUPROLIDE 22.5 MG SYRINGE (ELIGARD) SQ SCH (15:00)
== END 2019-02-25 | disposition home or self-care (01) ==
LOC: ONC 13:36
PROVIDERS: ATTEND Internal Medicine Hematology & Oncology
DX: C61 Malignant neoplasm of prostate (principal); C79.51 Secondary malignant neoplasm of bone; C78.5 Secondary malignant neoplasm of large intestine and rectum; C79.11 Secondary malignant neoplasm of bladder; E55.9 Vitamin D deficiency, unspecified; Z79.82 Long term (current) use of aspirin; Z79.899 Other long term (current) drug therapy
CPT/HCPCS: 36415; 80053; 84153; 85025; 96402; 99213

== ENCOUNTER 2019-06-18 10:43 | Outpatient (RCR) | payer MEDICARE, OTHER ==
[2019-03-23 14:34] LABS: BASOPHILS # (AUTO) 0.1 10^3/uL (0.0-0.1); BASOPHILS % (AUTO) 1 % (0-10); EOSINOPHILS # (AUTO) 0.4 10^3/uL (0.0-0.3); EOSINOPHILS % (AUTO) 7 % (0-10); HEMATOCRIT 34 % (40-54); HEMOGLOBIN 10.9 G/DL (13.3-17.7); LYMPHOCYTES # (AUTO) 1.6 X 10^3 (1.0-4.0); LYMPHOCYTES % (AUTO) 31 % (12-44); MEAN CORPUSCULAR HEMOGLOBIN 28 PG (25-34); MEAN CORPUSCULAR HGB CONC 32 G/DL (32-36); MEAN CORPUSCULAR VOLUME 87 FL (80-99); MEAN PLATELET VOLUME 8.1 FL (7.4-10.4); MONOCYTES # (AUTO) 0.5 X 10^3 (0.0-1.0); MONOCYTES % (AUTO) 10 % (0-12); NEUTROPHILS # (AUTO) 2.6 X 10^3 (1.8-7.8); NEUTROPHILS % (AUTO) 51 % (42-75); PLATELET COUNT 399 10^3/uL (130-400); WHITE BLOOD COUNT 5.1 10^3/uL (4.3-11.0)
[2019-03-23 14:52] LABS: ALANINE AMINOTRANSFERASE 9 U/L (0-55); ALBUMIN 3.7 GM/DL (3.2-4.5); ALKALINE PHOSPHATASE 104 U/L (40-136); BILIRUBIN,TOTAL 0.5 MG/DL (0.1-1.0); BUN/CREATININE RATIO 11; CALCIUM 9.3 MG/DL (8.5-10.1); CARBON DIOXIDE 25 MMOL/L (21-32); CHLORIDE 106 MMOL/L (98-107); CREATININE SERUM 1.12 MG/DL (0.60-1.30); GFR ESTIMATED > 60; GLUCOSE 111 MG/DL (70-105); POTASSIUM 3.9 MMOL/L (3.6-5.0); SODIUM 141 MMOL/L (135-145); TOTAL PROTEIN 7.3 GM/DL (6.4-8.2)
[2019-04-21 14:16] LABS: BASOPHILS # (AUTO) 0.1 10^3/uL (0.0-0.1); BASOPHILS % (AUTO) 1 % (0-10); EOSINOPHILS # (AUTO) 0.3 10^3/uL (0.0-0.3); EOSINOPHILS % (AUTO) 5 % (0-10); HEMATOCRIT 33 % (40-54); HEMOGLOBIN 10.5 G/DL (13.3-17.7); LYMPHOCYTES # (AUTO) 2.2 X 10^3 (1.0-4.0); LYMPHOCYTES % (AUTO) 38 % (12-44); MEAN CORPUSCULAR HEMOGLOBIN 28 PG (25-34); MEAN CORPUSCULAR HGB CONC 32 G/DL (32-36); MEAN CORPUSCULAR VOLUME 86 FL (80-99); MEAN PLATELET VOLUME 7.8 FL (7.4-10.4); MONOCYTES # (AUTO) 0.5 X 10^3 (0.0-1.0); MONOCYTES % (AUTO) 8 % (0-12); NEUTROPHILS # (AUTO) 2.7 X 10^3 (1.8-7.8); NEUTROPHILS % (AUTO) 47 % (42-75); PLATELET COUNT 393 10^3/uL (130-400); RED CELL DISTRIBUTION WIDTH 13.5 % (10.0-14.5); WHITE BLOOD COUNT 5.7 10^3/uL (4.3-11.0)
[2019-04-21 14:41] LABS: ALANINE AMINOTRANSFERASE 6 U/L (0-55); ALBUMIN 3.7 GM/DL (3.2-4.5); ALKALINE PHOSPHATASE 104 U/L (40-136); BILIRUBIN,TOTAL 0.5 MG/DL (0.1-1.0); BUN/CREATININE RATIO 12; CALCIUM 9.5 MG/DL (8.5-10.1); CARBON DIOXIDE 28 MMOL/L (21-32); CHLORIDE 103 MMOL/L (98-107); CREATININE SERUM 1.02 MG/DL (0.60-1.30); GFR ESTIMATED > 60; GLUCOSE 101 MG/DL (70-105); POTASSIUM 4.6 MMOL/L (3.6-5.0); SODIUM 142 MMOL/L (135-145); TOTAL PROTEIN 6.9 GM/DL (6.4-8.2)
[2019-05-20 14:21] LABS: BASOPHILS # (AUTO) 0.1 10^3/uL (0.0-0.1); BASOPHILS % (AUTO) 1 % (0-10); EOSINOPHILS # (AUTO) 0.2 10^3/uL (0.0-0.3); EOSINOPHILS % (AUTO) 4 % (0-10); HEMATOCRIT 30 % (40-54); HEMOGLOBIN 9.3 G/DL (13.3-17.7); LYMPHOCYTES # (AUTO) 1.5 X 10^3 (1.0-4.0); LYMPHOCYTES % (AUTO) 26 % (12-44); MEAN CORPUSCULAR HEMOGLOBIN 27 PG (25-34); MEAN CORPUSCULAR HGB CONC 31 G/DL (32-36); MEAN CORPUSCULAR VOLUME 89 FL (80-99); MEAN PLATELET VOLUME 7.9 FL (7.4-10.4); MONOCYTES # (AUTO) 0.5 X 10^3 (0.0-1.0); MONOCYTES % (AUTO) 9 % (0-12); NEUTROPHILS # (AUTO) 3.4 X 10^3 (1.8-7.8); NEUTROPHILS % (AUTO) 60 % (42-75); PLATELET COUNT 682 10^3/uL (130-400); RED CELL DISTRIBUTION WIDTH 13.7 % (10.0-14.5); WHITE BLOOD COUNT 5.7 10^3/uL (4.3-11.0)
[2019-05-20 14:37] LABS: ALANINE AMINOTRANSFERASE < 6 U/L (0-55); ALBUMIN 3.5 GM/DL (3.2-4.5); ALKALINE PHOSPHATASE 115 U/L (40-136); BILIRUBIN,TOTAL 0.4 MG/DL (0.1-1.0); BUN/CREATININE RATIO 12; CALCIUM 9.5 MG/DL (8.5-10.1); CARBON DIOXIDE 27 MMOL/L (21-32); CHLORIDE 105 MMOL/L (98-107); CREATININE SERUM 1.13 MG/DL (0.60-1.30); GFR ESTIMATED > 60; GLUCOSE 100 MG/DL (70-105); POTASSIUM 4.4 MMOL/L (3.6-5.0); SODIUM 141 MMOL/L (135-145); TOTAL PROTEIN 7.2 GM/DL (6.4-8.2)
[2019-06-17 10:53] LABS: BASOPHILS # (AUTO) 0.1 10^3/uL (0.0-0.1); BASOPHILS % (AUTO) 1 % (0-10); EOSINOPHILS # (AUTO) 0.9 10^3/uL (0.0-0.3); EOSINOPHILS % (AUTO) 14 % (0-10); HEMATOCRIT 33 % (40-54); HEMOGLOBIN 10.3 G/DL (13.3-17.7); LYMPHOCYTES # (AUTO) 1.3 X 10^3 (1.0-4.0); LYMPHOCYTES % (AUTO) 22 % (12-44); MEAN CORPUSCULAR HEMOGLOBIN 27 PG (25-34); MEAN CORPUSCULAR HGB CONC 31 G/DL (32-36); MEAN CORPUSCULAR VOLUME 88 FL (80-99); MEAN PLATELET VOLUME 8.1 FL (7.4-10.4); MONOCYTES # (AUTO) 0.5 X 10^3 (0.0-1.0); MONOCYTES % (AUTO) 9 % (0-12); NEUTROPHILS # (AUTO) 3.2 X 10^3 (1.8-7.8); NEUTROPHILS % (AUTO) 54 % (42-75); PLATELET COUNT 525 10^3/uL (130-400); RED CELL DISTRIBUTION WIDTH 14.2 % (10.0-14.5); WHITE BLOOD COUNT 5.9 10^3/uL (4.3-11.0)
[2019-06-17 11:14] LABS: ALANINE AMINOTRANSFERASE < 6 U/L (0-55); ALBUMIN 3.8 GM/DL (3.2-4.5); ALKALINE PHOSPHATASE 109 U/L (40-136); BILIRUBIN,TOTAL 0.5 MG/DL (0.1-1.0); BUN/CREATININE RATIO 13; CALCIUM 9.6 MG/DL (8.5-10.1); CARBON DIOXIDE 30 MMOL/L (21-32); CHLORIDE 107 MMOL/L (98-107); CREATININE SERUM 1.12 MG/DL (0.60-1.30); GFR ESTIMATED > 60; GLUCOSE 101 MG/DL (70-105); POTASSIUM 4.3 MMOL/L (3.6-5.0); SODIUM 143 MMOL/L (135-145); TOTAL PROTEIN 7.5 GM/DL (6.4-8.2)
[~2019-06-18 10:43] MED LIST changes: +LEUPROLIDE 22.5 MG SYRINGE (ELIGARD) SQ SCH; +LEUPROLIDE 45 MG ELIGARD SQ SCH; +LEUPROLIDE ACETATE 30 MG SQ SCH
[2019-06-18 11:36] LABS: BILIRUBIN,URINE NEGATIVE (NEGATIVE); CLARITY,URINE SLIGHTLY CLOUDY; COLOR,URINE YELLOW; GLUCOSE, URINE (UA) NEGATIVE (NEGATIVE); KETONES,URINE NEGATIVE (NEGATIVE); LEUKOCYTE ESTERASE ,URINE 3+ (NEGATIVE); NITRITE,URINE POSITIVE (NEGATIVE); PH,URINE 7 (5-9); PROTEIN,URINE 3+ (NEGATIVE); UROBILINOGEN,URINE NORMAL (NORMAL)
[2019-06-18 11:51] LABS: WBC,URINE >100 /HPF
[2019-06-18 11:52] LABS: BACTERIA,URINE MODERATE /HPF
[2019-06-22] MEDS ORDERED: PANT40SU PO (18:15)
[2019-06-22] MEDS ORDERED: TRAM1TAB7 PO (18:46)
[2019-06-22] MEDS ORDERED: ENZA40CA PO (18:47)
[2019-06-22] MEDS ORDERED: CALC-712 PO (18:51)
== END 2019-06-21 | disposition home or self-care (01) ==
LOC: ONC 10:43
PROVIDERS: ATTEND Internal Medicine Hematology & Oncology
DX: C61 Malignant neoplasm of prostate (principal); C79.51 Secondary malignant neoplasm of bone; C78.5 Secondary malignant neoplasm of large intestine and rectum; C79.11 Secondary malignant neoplasm of bladder; E55.9 Vitamin D deficiency, unspecified; Z79.82 Long term (current) use of aspirin; Z79.899 Other long term (current) drug therapy; R82.998 Other abnormal findings in urine
CPT/HCPCS: 36415; 80053; 81000; 84153; 85025; 87077; 87088; 87186; 96402; 99213

== ENCOUNTER 2019-06-22 01:49 | Observation (INO) | payer MEDICARE, OTHER ==
[~2019-06-22] VITALS: Ht 170.2 cm; Wt 67.8 kg
[~2019-06-22 01:49] MED LIST changes: -LEUPROLIDE 22.5 MG SYRINGE (ELIGARD) SQ SCH; -LEUPROLIDE 45 MG ELIGARD SQ SCH; -LEUPROLIDE ACETATE 30 MG SQ SCH
--- NOTE | 2019-06-22 16:30 | NUR ---
GINETTE PATINO admitted to room 415-1, with an admitting diagnosis of UTI, on 06/22/19 from HOME via W/C, accompanied by DAUGHTER AND .GINETTE PATINO introduced to surroundings, call light, bed controls, phone, TV, temperature control, lights, meal times, smoking policy, visitor policy, side rail policy, bathrooms and showers. Patient Rights given to patient in the handbook.GINETTE PATINO verbalizes understanding that [facility] is not responsible for the loss or damage to any personal effects or valuables that are kept in the patients posession during their hospitalization. The following Patient Care Plans were discussed with the PT AND : Discharge Planning, PAIN CONTROL,IV THERAPY, and TESTS AND PROCEDURES. GINETTE PATINO verbalizes understanding of Interdisciplinary Patient Education. Patient and/or family were informed about the Rapid Response Team and its purpose. Addendum: 06/24/19 at 0918 by SEMAJ ANGELES RN admitted at 174
[2019-06-22 17:53] VITALS: BP 151/78
--- NOTE | 2019-06-22 18:00 | NUR ---
SUPRA PUBIC CATH WITH MOD. AMT. YELLOWISH/GREENISH DRAINAGE NOTED. S/P CATH INSERTION SITE RED AND SWOLLEN WITH STITCHES IN PLACE. CLEANSED WELL WITH STERILE SALINE AND SPLIT GAUZE DRESSING APPLIED.
[2019-06-22] MEDS ORDERED: PANT40SU PO (18:15)
[2019-06-22] MEDS ORDERED: ONDANSETRON 4 MG/2 ML (SDV) Z0FRAN IV PRN (18:45)
[2019-06-22] MEDS ORDERED: ACETAMINOPHEN 325 MG TABLET PO PRN (18:45)
[2019-06-22] MEDS ORDERED: MILK OF MAGNESIA 400 MG/5 ML 30 ML UDC PO PRN (18:45)
[2019-06-22] MEDS ORDERED: VANCOMYCIN INJECTION 0.1 MG in NS (IVPB) 250 ML IV SCH (18:45)
[2019-06-22] MEDS ORDERED: PATIENT MAY USE OWN MEDS, ALL PO SCH (18:45)
[2019-06-22] MEDS ORDERED: MELATONIN 3 MG TABLET PO PRN (18:45)
[2019-06-22] MEDS ORDERED: BENZONATATE 100 MG (TESSALON) CAPSULE PO PRN (18:45)
[2019-06-22] MEDS ORDERED: ANTACID SUSP 30 ML UDC (MYLANTA) PO PRN (18:45)
[2019-06-22] MEDS ORDERED: TRAM1TAB7 PO (18:46)
[2019-06-22] MEDS ORDERED: ENZA40CA PO (18:47)
[2019-06-22] MEDS ORDERED: CALC-712 PO (18:51)
--- NOTE | 2019-06-22 19:08 | NUR ---
CR 1.12 ON 06-17-19; WT 67.8 KG; CR CL ~45; VANCO 1500 MG IV BOLUS THEN 1250 MG IV Q24H; TROUGH AFTER 2ND DOSE
[2019-06-22 19:14] LABS: BASOPHILS # (AUTO) 0.1 10^3/uL (0.0-0.1); BASOPHILS % (AUTO) 1 % (0-10); EOSINOPHILS # (AUTO) 0.9 10^3/uL (0.0-0.3); EOSINOPHILS % (AUTO) 19 % (0-10); HEMATOCRIT 28 % (40-54); LYMPHOCYTES # (AUTO) 1.4 X 10^3 (1.0-4.0); LYMPHOCYTES % (AUTO) 29 % (12-44); MEAN CORPUSCULAR HEMOGLOBIN 28 PG (25-34); MEAN CORPUSCULAR HGB CONC 32 G/DL (32-36); MEAN CORPUSCULAR VOLUME 88 FL (80-99); MONOCYTES # (AUTO) 0.6 X 10^3 (0.0-1.0); MONOCYTES % (AUTO) 12 % (0-12); NEUTROPHILS # (AUTO) 1.9 X 10^3 (1.8-7.8); NEUTROPHILS % (AUTO) 40 % (42-75); PLATELET COUNT 357 10^3/uL (130-400); RED CELL DISTRIBUTION WIDTH 13.8 % (10.0-14.5); WHITE BLOOD COUNT 4.8 10^3/uL (4.3-11.0)
[2019-06-22] MEDS ORDERED: VANCOMYCIN 1500 MG/NS 500 ML IVPB IV NR ×2 (19:15)
[2019-06-22] MEDS ORDERED: PATIENT MAY USE OWN MEDS, ALL MC SCH (19:15)
[2019-06-22 19:32] LABS: BUN/CREATININE RATIO 15; CALCIUM 8.8 MG/DL (8.5-10.1); CARBON DIOXIDE 27 MMOL/L (21-32); CHLORIDE 105 MMOL/L (98-107); GFR ESTIMATED > 60; GLUCOSE 107 MG/DL (70-105); SODIUM 140 MMOL/L (135-145)
[2019-06-22 19:59] LABS: BAND NEUTROPHILS 2 %; BASOPHILS % (MANUAL) 1 %; EOSINOPHILS % (MANUAL) 16 %; LYMPHOCYTES % (MANUAL) 33 %; MONOCYTES % (MANUAL) 5 %; NEUTROPHILS % (MANUAL) 43 %; RBC MORPH NORMAL
[2019-06-22 20:15] VITALS: BP 148/85
[2019-06-22] MEDS: CEFEPIME INJECTION 1,000 MG in WATER (STERILE) FOR INJECTION 10 ML IV SCH (20:15)
[2019-06-22 23:35] VITALS: BP 139/63
[2019-06-23] MEDS: CEFEPIME INJECTION 1,000 MG in WATER (STERILE) FOR INJECTION 10 ML IV SCH (03:24)
[2019-06-23 04:00] VITALS: BP 164/76
[2019-06-23 06:22] LABS: HEMOGLOBIN 9.3 G/DL (13.3-17.7); MEAN PLATELET VOLUME 8.3 FL (7.4-10.4); RED CELL DISTRIBUTION WIDTH 13.8 % (10.0-14.5); WHITE BLOOD COUNT 6.2 10^3/uL (4.3-11.0)
[2019-06-23 06:40] LABS: BUN/CREATININE RATIO 13; CALCIUM 8.7 MG/DL (8.5-10.1); CARBON DIOXIDE 25 MMOL/L (21-32); CHLORIDE 108 MMOL/L (98-107); CREATININE SERUM 0.95 MG/DL (0.60-1.30); GFR ESTIMATED > 60; GLUCOSE 92 MG/DL (70-105); POTASSIUM 3.8 MMOL/L (3.6-5.0); SODIUM 142 MMOL/L (135-145)
[2019-06-23] MEDS ORDERED: PANTOPRAZOLE 40 MG (PROTONIX) TAB PO SCH (07:00)
[2019-06-23 08:00] VITALS: BP 163/80
[2019-06-23] MEDS ORDERED: PANT40TA3 PO (10:02)
[2019-06-23] MEDS ORDERED: ENZA40CA PO (10:02)
[2019-06-23] MEDS ORDERED: CALC-6 PO (10:02)
[2019-06-23] MEDS ORDERED: TRAM50TA2 PO (10:06)
--- NOTE | 2019-06-23 10:11 | NUR ---
SPOKE WITH THE PATIENT ABOUT HIS MEDICATIONS. WE WENT OVER THE EXT MED HX. HE HAD A BOTTLE OF XTANDI WITH HIM. IT IS WRITTEN TO TAKE 3 DAILY HOWEVER HE STATES HE ONLY TAKES 2 DAILY. HIS PROTONIX IS FILLED #180 FOR A 90 DAY SUPPLY HOWEVER HE ONLY TAKES ONE DAILY. HE TAKES ASPIRIN 81MG DAILY, VITAMIN D DAILY, AND CALCIUM +D DAILY OTC.
[2019-06-23] MEDS ORDERED: CEFEPIME INJECTION 1,000 MG in WATER (STERILE) FOR INJECTION 10 ML IV SCH ×4 (10:30)
--- NOTE | 2019-06-23 10:53 | Short Stay Summary-Hospitalist ---
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 He beagn having pain around his SPT last week and he asked Dr Huerta to check a UA. This was done and the culture revealed both MRSA and pseudomonas. He was direct admitted for IV abx. Today he reports feeling well but still has some pain near his catheter site. He reports frustration with having to stay in the hospital and wants to be at home where he can continue his PT via Home Health. He denies any fevers or chills. He states he is eating and drinking well. He denies any nausea, vomiting, diarrhea, or constipation. Source: patient Date Seen 06/23/19 Time Seen by a Provider: 10:32 Attending Physician Ayaka Lang MD PCP Jesse Guzman MD Referring Physician Date of Admission Jun 22, 2019 at 17:34 Home Medications & Allergies Home Medications Reviewed patient Home Medication Reconciliation performed by pharmacy medication reconciliations artificial insemination technician and/or nursing. Patients Allergies have been reviewed. Allergies Allergies Coded Allergies diazepam (Verified Allergy, Unknown, 01/07/19) Uncoded Allergies TRIAMICINALONE CREAM ( Allergy, Unknown, 01/07/19) Past Bisamdj-Qflslm-Rfsrst Hx Past Med/Social Hx: Reviewed Nursing Past Med/Soc Hx Patient Social History Marrital Status: Employed/Student: retired Alcohol Use: Occasionally Uses Alcohol Beverage of Choice: Beer Recreational Drug Use: No Smoking Status: Never a Smoker Former Smoker, Quit: Oct 23, 1950 Type Used: Cigarettes 2nd Hand Smoke Exposure: No Physical Abuse Screen: No Sexual Abuse: No Recent Foreign Travel: No Contact w/other who traveled: No Recent Hopitalizations: No Recent Infectious Disease Expo: No Immunizations Up To Date Tetanus Booster (TDap): Unknown Date of Pneumonia Vaccine: May 30, 2012 Date of Influenza Vaccine: Aug 27, 2018 Seasonal Allergies Seasonal Allergies: No Past Medical History Surgeries: Penile Implant Currently Using CPAP: No Currently Using BIPAP: No Genitourinary: Prostate Problems Loss of Vision: Denies Hearing Impairment: Denies Cancer: Prostate Did You Recieve Any Treatments: Yes What Type of Treatment Did You: Radiation, Surgical Intervention, Other History of Blood Disorders: No Adverse Reaction to Blood Shah: No Family History Reviewed Nursing Family Hx Urinary tract infection 19 FATHER Renal Disease Review of Systems Constitutional: No chills, No fever EENTM: no symptoms reported Respiratory: No cough, No dyspnea on exertion, No short of breath Cardiovascular: No chest pain, No palpitations Gastrointestinal: see HPI Genitourinary: see HPI Musculoskeletal: No joint pain, No muscle pain Skin: no symptoms reported Psychiatric/Neurological: No Symptoms Reported Physical Exam Physical Exam Vital Signs Vital Signs - First Documented 06/22/19 17:53 Temp 36.7 Pulse 81 Resp 20 B/P (MAP) 151/78 Pulse Ox 96 O2 Delivery Room Air Capillary Refill : Height, Weight, BMI Height: 5'7.00" Weight: 149lbs. 8.0oz. 67.916069ns; 23.4 BMI Method:Stated General Appearance: No Apparent Distress, WD/WN HEENT: PERRL/EOMI, Moist Mucous Membranes; No Scleral Icterus (L), No Scleral Icterus (R) Neck: Normal Inspection, Supple Respiratory: Lungs Clear, No Accessory Muscle Use, No Respiratory Distress Cardiovascular: Regular Rate, Rhythm, No Murmur Gastrointestinal: Normal Bowel Sounds, Non Tender, Soft Genital/Rectal: Other (suprapubic cather in place with leg bag, yellow urine noted) Neurologic/Psychiatric: Alert, Oriented x3 Skin: Normal Color, Warm/Dry Results Results/Procedures Labs Laboratory Tests 06/22/19 19:06 06/23/19 06:11 Patient resulted labs reviewed. Short Stay Diagnosis Discharge Diagnosis-Short Stay Admission Diagnosis UTI with MDRO Final Discharge Diagnosis Same Conclusion Plan UTI with MDRO No evidence of sepsis culture reveals MRSA Micro reported further sensitivities and it is sensitive to both Bactrim and Doxycycline Psuedomonas sensitive to Cipro Plan to DC home on Cipro and Doxycycline Clinical Quality Measures DVT/VTE Risk/Contraindication: Risk Factor Score Per Nursin RFS Level Per Nursing on Admit: 4+=Very High AYAKA LANG MD Jun 23, 2019 10:53
[2019-06-23] MEDS ORDERED: CIPR-225 PO (11:06)
[2019-06-23] MEDS ORDERED: DOXY100T2 PO (11:06)
--- NOTE | 2019-06-23 11:13 | Discharge Inst-Simple/Standard ---
Discharge Inst-Standard Reconcile Patient Problems Problems Reviewed?: Yes Discharge Medications New, Converted or Re-Newed RX: Transmitted to Pharmacy Patient Instructions/Follow Up Plan of Care/Instructions/FU: Please continue to take your medications as written. Please follow up with your PCP in the next week. Activity as Tolerated: Yes Discharge Diet: No Restrictions Return to The Hospital For: Fever, confusion, worsening pain, if you feel you are getting worse. JAMAICA CAT MD Jun 23, 2019 11:13
[2019-06-23 12:57] VITALS: BP 163/80
--- NOTE | 2019-06-23 15:26 | NUR ---
Pt and pleased to be discharged home. They will resume receiving [facility] Care. Short Stay summary and discharge instructions were faxed to [facility] for their continued care.
[2019-06-23] MEDS ORDERED: VANCOMYCIN 1250 MG/NS 250 ML IVPB IV SCH ×2 (19:00)
[2019-06-24] MEDS ORDERED: TROUGH ORDER-PHARMACY XX NR (18:00)
--- OUTSIDE RECORDS SUMMARY | 2019-07-16 17:56 | XMS REPORT ---
Author Author Babar Matt Organization [facility] Address [address] [place], [place] [address] Care Team Providers Care Lsw Name Role Phone Concepciontona Babar PCP Allergies and Adverse Reactions Name Reaction Notes Valium Plan of Treatment Planned Activity Comments Planned Date Planned Time Plan/Goal EKG. 01/09/2019 12:00 AM URINALYSIS W/MICRO C&S IF IND 01/09/2019 12:00 AM Medications Active Name Start Date Estimated Completion Date SIG Comments Xtandi 40 mg oral capsule take 4 capsules (160 mg) by oral route once daily at the same time each day swallowing whole. Do not chew, open, dissolve and/or crush. pantoprazole 40 mg oral tablet,delayed release (DR/EC) take 1 tablet (40 mg) by oral route once daily Aspirin Low Dose 81 mg oral tablet,delayed release (DR/EC) take 1 tablet (81 mg) by oral route once daily Eligard 7.5 mg (1 month) subcutaneous syringe inject 7.5 mg by subcutaneous route once a month potassium chloride 20 mEq oral tablet extended release take 1 tablet (20 meq) by oral route once daily with food Calcium 500 + D 500 mg(1,250mg) -400 unit oral tablet take 1 tablet by oral route daily promethazine 12.5 mg oral tablet 05/06/2019 take 1 tablet (12.5 mg) by oral route 3 times per day PRN nausea Pyridium 100 mg oral tablet 05/08/2019 take 1 tablet (100 mg) by oral route 3 times per day after meals Name Start Date Expiration Date SIG Comments Augmentin 500-125 mg oral tablet 03/20/2019 03/25/2019 take 1 tablet by oral route every 12 hours for 5 days Myrbetriq 50 mg oral tablet extended release 24 hr 04/14/2019 05/14/2019 take 1 tablet (50 mg) by oral route once daily swallowing whole with water. Do not crush, chew and/or divide. for 30 days levofloxacin 250 mg oral tablet 04/15/2019 04/26/2019 take 1 tablet (250 mg) by oral route once daily for 11 days tramadol-acetaminophen 37.5-325 mg oral tablet 05/06/2019 06/03/2019 take 1- 2 tablets by oral route every 6 hours as needed, for up to 5 days; do not exceed 8 tablets in 24hrs for 28 days Problem List Not available. Vital Signs Date Time BP-Sys(mm[Hg] BP-Yina(mm[Hg]) HR(bpm) RR(rpm) Temp WT HT HC BMI BSA BMI Percentile O2 Sat(%) 04/24/2019 11:39:00 AM 130 mm[Hg] 80 mm[Hg] 80 {beats}/min 16 rpm 04/20/2019 3:25:00 PM 150 mm[Hg] 75 mm[Hg] 75 {beats}/min 18 rpm 97.3 F 96 % 03/20/2019 2:46:00 PM 124 mm[Hg] 62 mm[Hg] 86 {beats}/min 18 rpm 97.7 F 160 lbs 67 in 25.06 kg/m2 1.85 m2 97 % 02/09/2019 1:43:00 PM 136 mm[Hg] 74 mm[Hg] 84 {beats}/min 18 rpm 98.8 F 160 lbs 67 in 25.0593 kg/m2 1.8522 m2 96 % Social History Name Description Comments Tobacco Never smoker Alcohol Light History of Procedures Date Ordered Description Order Status 01/09/2019 12:00 AM COMPLETE CBC W/AUTO DIFF WBC Reviewed 01/09/2019 12:00 AM METABOLIC PANEL TOTAL CA Reviewed Results Summary Date and Description Results 01/21/2019 6:55 AM WBC 5.0 RBC 3.67 HGB 10.80 g/dLHCT 33.20 %MCV 91.0 fLMCH 29.40 pgMCHC 32.50 g/dLRDW SD 40 fLRDW CV 12.0 %MPV 8.50 fLPLT 320 NRBC# 0.00 NRBC% 0.0 %NEUT 60.4 %LYMP 19.5 %MONO 11.5 %EOS 7.4 %BASO 0.8 #NEUT 3.00 #LYMP 0.97 #MONO 0.57 #EOS 0.37 #BASO 0.04 MANUAL DIFF NOT IND GLUCOSE 86 SODIUM 145 POTASSIUM 3.7 CHLORIDE 110.0 mmol/LCO2 24 BUN 14.0 mg/dLCREATININE 1.20 mg/dLCALCIUM 9.40 mg/dLAGE 83 GFR NonAA 58 GFR AA 70 eGFR 58 eGFR AA* >60 m L/min/1.73 m2 History Of Immunizations Not available. History of Past Illness Name Date of Onset Comments Prostate Cancer Bladder cancer Rectal cancer Slowing of Urinary Stream Jan 09 2019 10:36AM Hematuria Jan 09 2019 10:36AM Nocturia Jan 09 2019 10:36AM Preoperative testing Jan 09 2019 11:05AM Bladder mass Jan 09 2019 10:36AM Malignant neoplasm of prostate Jan 09 2019 10:36AM Prostate cancer Feb 09 2019 1:45PM Prostate cancer Mar 20 2019 2:50PM Hydronephrosis Mar 20 2019 2:50PM Prostate cancer Apr 20 2019 3:30PM Incontinence of urine Apr 20 2019 3:30PM Incontinence of urine Apr 24 2019 11:43AM Prostate cancer Apr 24 2019 11:43AM Prostate cancer May 01 2019 3:39PM Hydronephrosis May 01 2019 3:39PM Prostate cancer May 19 2019 1:59PM Hydronephrosis May 19 2019 1:59PM Stricture, urethra, congenital May 19 2019 1:59PM Prostate cancer Jun 01 2019 9:00AM Hydronephrosis Jun 01 2019 9:00AM Stricture, urethra, congenital Jun 01 2019 9:00AM Payers Insurance Name Company Name Plan Name Plan Number Policy Number Policy Group Number Start Date Medicare Part B Medicare [place] [id number] N/A [facility] [id number] N/A History of Encounters Visit Date Visit Type Provider 06/01/2019 Surgery Babar Matt MD 05/19/2019 Procedures Babar Matt MD 05/08/2019 Office visit Babar Matt MD 05/04/2019 Surgery Babar Matt MD 04/24/2019 Procedures SON SENA STRAW HAT MACHINE OPERATOR 04/20/2019 Procedures Babar Matt MD 03/20/2019 Office visit Babar Matt MD 02/09/2019 Office visit Babar Matt MD 02/06/2019 Surgery Babar Matt MD 01/21/2019 Surgery Babar Matt MD 01/21/2019 [facility] Erasmo Urbina MD 01/16/2019 Surgery Babar Matt MD 01/09/2019 Office visit Babar Matt MD
--- OUTSIDE RECORDS SUMMARY | 2019-07-16 17:56 | XMS REPORT ---
Author Author Babar Matt [facility] Address [address] [place], [place] [phone] Care Team Providers Care Eyeglass Maker Name Role Phone Babar Matt PCP Allergies [...] route 3 times per day PRN nausea tramadol-acetaminophen 37.5-325 mg oral tablet 05/06/2019 06/03/2019 take 1- 2 tablets by oral route every 6 hours as needed, for up to 5 days; do not exceed 8 tablets in 24hrs for 28 days Pyridium 100 mg oral tablet 05/08/2019 take [...] oral route once daily for 11 days Problem List Not available. Vital Signs Date Time BP-Sys(mm[Hg] BP-Yina(mm[Hg]) HR(bpm) RR(rpm) Temp WT HT HC BMI BSA BMI Percentile O2 Sat(%) 04/24/2019 11:39:00 AM 130 mmHg 80 mmHg 80 bpm 16 rpm 04/20/2019 3:25:00 PM 150 mmHg 75 mmHg 75 bpm 18 rpm 97.3 F 96 % 03/20/2019 2:46:00 PM 124 mmHg 62 mmHg 86 bpm 18 rpm 97.7 F 160 lbs 67 in 25.06 kg/m2 1.85 m2 97 % 02/09/2019 1:43:00 PM 136 mmHg 74 mmHg 84 bpm 18 rpm 98.8 F 160 lbs 67 in 25.0593 kg/m 1.8522 m 96 % Social History Name Description Comments [...] Date Medicare Part B Medicare [place] [id number] N/A [facility] [id number] N/A History of Encounters Visit Date Visit Type Provider 05/19/2019 Procedures Babar Matt MD 05/08/2019 Office visit Babar Matt MD 05/04/2019 Surgery Babar Matt MD 04/24/2019 Procedures SON SENA POLITICAL AIDE 04/20/2019 Procedures Babar Matt MD 03/20/2019 Office visit Babar Matt MD 02/09/2019 Office visit Babar Matt MD 02/06/2019 Surgery Babar Matt MD 01/21/2019 Surgery Babar Matt MD 01/21/2019 [facility] Erasmo Urbina MD 01/16/2019 Surgery Babar Matt MD 01/09/2019 Office visit Babar Matt MD
--- OUTSIDE RECORDS SUMMARY | 2019-07-16 17:56 | XMS REPORT ---
Author Author Babar Matt Organization [facility] Address [address] [place], [place] [phone] Care Team Providers Care Online Banking Specialist Name Role Phone Concepciontona Babar PCP Allergies [...] Date Medicare Part B Medicare [place] [id number] N/A [facility] [id number] N/A History of Encounters Visit Date Visit Type Provider 06/01/2019 Surgery Babar Matt MD 05/19/2019 Procedures Babar Matt MD 05/08/2019 Office visit Babar Matt MD 05/04/2019 Surgery Babar Matt MD 04/24/2019 Procedures SON SENA AVIONICS SAFETY INSPECTOR 04/20/2019 Procedures Babar Matt MD 03/20/2019 Office visit Babar Matt MD 02/09/2019 Office visit Babar Matt MD 02/06/2019 Surgery Babar Matt MD 01/21/2019 Surgery Babar Matt MD 01/21/2019 [facility] Erasmo Urbina MD 01/16/2019 Surgery Babar Matt MD 01/09/2019 Office visit Babar Matt MD
--- OUTSIDE RECORDS SUMMARY | 2019-07-16 17:56 | XMS REPORT ---
Author Author Babar Matt [facility] Address [address] [place], [place] [phone] Care Team Providers Care Night Clerk Auditor Name Role Phone Babar Matt PCP Allergies [...] Stricture, urethra, congenital May 19 2019 1:59PM Payers Insurance Name Company Name Plan Name Plan Number Policy Number Policy Group Number Start Date Medicare Part B Medicare Of [place] [id number] N/A [facility] [id number] N/A History of Encounters Visit Date Visit Type Provider 05/19/2019 Procedures Babar Matt MD 05/08/2019 Office visit Babar Matt MD 05/04/2019 Surgery Babar Matt MD 04/24/2019 Procedures SON SENA PICK REMOVER 04/20/2019 Procedures Babar Matt MD 03/20/2019 Office visit Babar Matt MD 02/09/2019 Office visit Babar Matt MD 02/06/2019 Surgery Babar Matt MD 01/21/2019 Surgery Babar Matt MD 01/21/2019 [facility] Erasmo Urbina MD 01/16/2019 Surgery Babar Matt MD 01/09/2019 Office visit Babar Matt MD
--- OUTSIDE RECORDS SUMMARY | 2019-07-16 17:57 | XMS REPORT ---
Author Author SON SENA [facility] Address [address] [place], [place] [id number] Care Team Providers Care Financial Investment Adviser Name Role Phone SON SENA PCP Allergies and Adverse Reactions Name Reaction [...] take 1 tablet by oral route daily Myrbetriq 50 mg oral tablet extended release 24 hr 04/14/2019 05/14/2019 take 1 tablet (50 mg) by oral route once daily swallowing whole with water. Do not crush, chew and/or divide. for 30 days Name Start Date Expiration Date SIG Comments Augmentin 500-125 mg oral tablet 03/20/2019 03/25/2019 take 1 tablet by oral route every 12 hours for 5 days tramadol-acetaminophen 37.5-325 mg oral tablet 03/20/2019 04/17/2019 take 1- 2 tablets by oral route every 6 hours as needed, for up to 5 days; do not exceed 8 tablets in 24hrs for 28 days levofloxacin 250 mg oral tablet 04/15/2019 [...] 6:55 AM WBC 5.0 RBC 3.67 HGB 10.8 HCT 33.2 MCV 91 MCH 29.4 MCHC 32.5 RDW SD 40 RDW CV 12.0 MPV 8.5 PLT 320 NRBC# 0.00 NRBC% 0.0 %NEUT 60.4 %LYMP 19.5 %MONO 11.5 %EOS 7.4 %BASO 0.8 #NEUT 3.00 #LYMP 0.97 #MONO 0.57 #EOS 0.37 #BASO 0.04 MANUAL DIFF NOT IND GLUCOSE 86 SODIUM 145 POTASSIUM 3.7 CHLORIDE 110 CO2 24 BUN 14 CREATININE 1.2 CALCIUM 9.4 AGE 83 GFR NonAA 58 GFR AA 70 eGFR 58 eGFR AA* >60 History Of Immunizations Not available. History of Past Illness Name Date of Onset Comments Prostate Cancer Bladder cancer Rectal cancer Slowing of Urinary Stream Jan 09 2019 10:36AM Hematuria Jan 09 2019 10:36AM Nocturia Jan 09 2019 10:36AM Preoperative testing Jan 09 2019 11:05AM Bladder mass Jan 09 2019 10:36AM Malignant neoplasm of prostate Jan 09 2019 10:36AM Prostate cancer Apr 29 2019 1:45PM Prostate cancer Mar 20 2019 2:50PM Hydronephrosis Mar 20 2019 2:50PM Prostate cancer Apr 20 2019 3:30PM Incontinence of urine Apr 20 2019 3:30PM Incontinence of urine Apr 24 2019 11:43AM Prostate cancer Apr 24 2019 11:43AM Prostate cancer May 01 2019 3:39PM Hydronephrosis May 01 2019 3:39PM Payers Insurance Name Company Name Plan Name Plan Number Policy Number Policy Group Number Start Date Medicare Part B Medicare Of [place] [id number] N/A [facility] [id number] N/A History of Encounters Visit Date Visit Type Provider 04/24/2019 Procedures SON SENA WEIGHT YARDAGE CHECKER 04/20/2019 Procedures Babar Matt MD 03/20/2019 Office visit Babar Matt MD 02/09/2019 Office visit Babar Matt MD 02/06/2019 Surgery Babar Matt MD 01/21/2019 Surgery Babar Matt MD 01/21/2019 [facility] Erasmo Urbina MD 01/16/2019 Surgery Babar Matt MD 01/09/2019 Office visit Babar Matt MD
--- OUTSIDE RECORDS SUMMARY | 2019-07-16 17:57 | XMS REPORT ---
Author Author Babar Matt [facility] Address [address] [place], [place] [phone] Care Team Providers Care Senior Talent Management Consultant Name Role Phone Babar Matt PCP Allergies [...] Date Medicare Part B Medicare Of [place] [id number] N/A [facility] [id number] N/A History of Encounters Visit Date Visit Type Provider 05/19/2019 Procedures Babar Matt MD 05/08/2019 Office visit Babar Matt MD 05/04/2019 Surgery Babar Matt MD 04/24/2019 Procedures SON SENA FOREST FIRE LOOKOUT 04/20/2019 Procedures Babar Matt MD 03/20/2019 Office visit Babar Matt MD 02/09/2019 Office visit Babar Matt MD 02/06/2019 Surgery Babar Matt MD 01/21/2019 Surgery Babar Matt MD 01/21/2019 [facility] Erasmo Urbina MD 01/16/2019 Surgery Babar Matt MD 01/09/2019 Office visit Babar Matt MD
--- OUTSIDE RECORDS SUMMARY | 2019-07-16 17:57 | XMS REPORT ---
Author Author SON SENA [facility] Address [address] [place], [place] [phone] Care Team Providers Care Supervisor Engine Assembly Name Role Phone SON SENA PCP Allergies [...] 11:43AM Prostate cancer Apr 24 2019 11:43AM Payers Insurance Name Company Name Plan Name Plan Number Policy Number Policy Group Number Start Date Medicare Part B Medicare Of [place] [id number] N/A [facility] [id number] N/A History of Encounters Visit Date Visit Type Provider 04/24/2019 Procedures SON SENA HOT METAL CRANE OPERATOR 04/20/2019 Procedures Babar Matt MD 03/20/2019 Office visit Babar Matt MD 02/09/2019 Office visit Babar Matt MD 02/06/2019 Surgery Babar Matt MD 01/21/2019 Surgery Babar Matt MD 01/21/2019 [facility] Erasmo Urbina MD 01/16/2019 Surgery Babar Matt MD 01/09/2019 Office visit Babar Matt MD
--- OUTSIDE RECORDS SUMMARY | 2019-07-16 17:57 | XMS REPORT ---
Author Author SON SENA [facility] Address [address] [place], [place] [id number] Care Team Providers Care Oil Prospecting Observer Name Role Phone SON SENA PCP Allergies [...] Date Medicare Part B Medicare Of [place] [id number] N/A [facility] [id number] N/A History of Encounters Visit Date Visit Type Provider 04/24/2019 Procedures SON SENA DRAWING PRESS OPERATOR 04/20/2019 Procedures Babar Matt MD 03/20/2019 Office visit Babar Matt MD 02/09/2019 Office visit Babar Matt MD 02/06/2019 Surgery Babar Matt MD 01/21/2019 Surgery Babar Matt MD 01/21/2019 [facility] Erasmo Urbina MD 01/16/2019 Surgery Babar Matt MD 01/09/2019 Office visit Babar Matt MD
--- OUTSIDE RECORDS SUMMARY | 2019-07-16 17:57 | XMS REPORT ---
Author Author Babar Matt Organization [facility] Address [address] [place], [place] [id number] Care Team Providers Care Market Research Assistant Name Role Phone Conce[place] Babar PCP Allergies [...] crush, chew and/or divide. for 30 days promethazine 12.5 mg oral tablet 05/06/2019 take 1 tablet (12.5 mg) by oral route 3 times per day PRN nausea tramadol-acetaminophen 37.5-325 mg oral tablet 05/06/2019 06/03/2019 take 1- 2 tablets by oral route every 6 hours as needed, for up to 5 days; do not exceed 8 tablets in 24hrs for 28 days Name Start Date Expiration Date SIG Comments Augmentin 500-125 mg oral tablet 03/20/2019 03/25/2019 take 1 tablet by oral route every 12 hours for 5 days levofloxacin 250 mg oral tablet 04/15/2019 [...] AA 70 eGFR 58 eGFR AA* >60 mL/min/1.73 m2 History Of Immunizations Not available. History [...] Date Medicare Part B Medicare [place] [id number] N/A [facility] [id number] N/A History of Encounters Visit Date Visit Type Provider 05/04/2019 Surgery Babar Matt MD 04/24/2019 Procedures SON SENA ARTISTS' BOOKING REPRESENTATIVE 04/20/2019 Procedures Babar Matt MD 03/20/2019 Office visit Babar Matt MD 02/09/2019 Office visit Babar Matt MD 02/06/2019 Surgery Babar Matt MD 01/21/2019 Surgery Babar Matt MD 01/21/2019 [facility] Erasmo Urbina MD 01/16/2019 Surgery Babar Matt MD 01/09/2019 Office visit Babar Matt MD
--- OUTSIDE RECORDS SUMMARY | 2019-07-16 17:58 | XMS REPORT ---
Author Author Babar Matt Organization [facility] Address [address] [place], [place] [phone] Care Team Providers Care Street Flusher Driver Name Role Phone Vernell Babar PCP Allergies [...] Date Medicare Part B Medicare Of [place] [id number] N/A [facility] [id number] N/A History of Encounters Visit Date Visit Type Provider 01/09/2019 Office visit Babar Matt MD
--- OUTSIDE RECORDS SUMMARY | 2019-07-16 17:58 | XMS REPORT ---
Author Author Babar Matt [facility] Address [address] [place], [place] [phone] Care Team Providers Care Overnight Houseperson Name Role Phone Babar Matt PCP Allergies [...] take 1 tablet by oral route daily tramadol-acetaminophen 37.5-325 mg oral tablet 03/20/2019 04/17/2019 take 1- 2 tablets by oral route every 6 hours as needed, for up to 5 days; do not exceed 8 tablets in 24hrs for 28 days Myrbetriq 50 mg oral tablet extended release 24 hr 04/14/2019 05/14/2019 take 1 tablet (50 mg) by oral route once daily swallowing whole with water. Do not crush, chew and/or divide. for 30 days Name Start Date Expiration Date SIG Comments Augmentin 500-125 mg oral tablet 03/20/2019 03/25/2019 take 1 tablet by oral route every 12 hours for 5 days Problem List Not available. Vital Signs Date Time BP-Sys(mm[Hg] BP-Yina(mm[Hg]) HR(bpm) RR(rpm) Temp WT HT HC BMI BSA BMI Percentile O2 Sat(%) 03/20/2019 2:46:00 PM 124 mmHg 62 mmHg 86 bpm 18 rpm 97.7 F 160 lbs 67 in 25.0593 kg/m 1.8522 m 97 % 02/09/2019 1:43:00 PM 136 mmHg 74 mmHg 84 bpm 18 rpm 98.8 F 160 lbs 67 in 25.06 kg/m2 1.85 m2 96 % Social History Name Description [...] 2019 2:50PM Hydronephrosis Mar 20 2019 2:50PM Payers Insurance Name Company Name Plan Name Plan Number Policy Number Policy Group Number Start Date Medicare Part B Medicare Of [place] [id number] N/A [facility] [id number] N/A History of Encounters Visit Date Visit Type Provider 03/20/2019 Office visit Babar Matt MD 02/09/2019 Office visit Babar Matt MD 02/06/2019 Surgery Babar Matt MD 01/21/2019 Surgery Babar Matt MD 01/21/2019 [facility] Alicia Urbina MD 01/16/2019 Surgery Babar Matt MD 01/09/2019 Office visit Babar Matt MD
--- OUTSIDE RECORDS SUMMARY | 2019-07-16 17:58 | XMS REPORT ---
Author Author SON SENA [facility] Address [address] [place], [place] [phone] Care Team Providers Care Backhoe Operator Name Role Phone SON SENA PCP Allergies [...] oral route once daily for 11 days Name Start Date Expiration Date SIG [...] Date Medicare Part B Medicare Of [place] [id number] N/A [facility] [id number] N/A History of Encounters Visit Date Visit Type Provider 04/24/2019 Procedures SON SENA PLANT UTILITY PERSON 04/20/2019 Procedures Babar Matt MD 03/20/2019 Office visit Babar Matt MD 02/09/2019 Office visit Babar Matt MD 02/06/2019 Surgery Babar Matt MD 01/21/2019 Surgery Babar Matt MD 01/21/2019 [facility] Erasmo Urbina MD 01/16/2019 Surgery Babar Matt MD 01/09/2019 Office visit Babar Matt MD
--- OUTSIDE RECORDS SUMMARY | 2019-07-16 17:58 | XMS REPORT ---
Author Author Babar Matt Organization [facility] Address [address] [place], [place] [address] Care Team Providers Care Senior Private Client Advisor Name Role Phone Vernell Babar PCP Allergies [...] Date Medicare Part B Medicare Of [place] [id number] N/A [facility] [id number] N/A History of Encounters Visit Date Visit Type Provider 01/09/2019 Office visit Babar Matt MD
--- OUTSIDE RECORDS SUMMARY | 2019-07-16 17:58 | XMS REPORT ---
Author Author Migration, Doctor Organization [facility] Address Unknown Phone Unavailable Care Team Providers Care Business Office Technician Name Role Phone Migration, Doctor Unavailable Unavailable PROBLEMS Type Condition ICD9-CM Code [id number] Code Onset Dates Condition Status SNOMED Code Problem PPV23 (PNEUMOVAX) DX V03.82 Active [id number] ALLERGIES No Information ENCOUNTERS Encounter Location Date Diagnosis [facility] [address] [phone] Oct, Encounter for dental examination Z01.20 [facility] [address] [phone] Mar, Encounter for dental examination Z01.20 [facility] [address] [phone] Sep, Encounter for dental examination Z01.20 [facility] [address] [id number] Jun, Dental examination V72.2 [facility] [address] [id number] May, Dental examination V72.2 [facility] [phone] [place] [id number] Mar, Dental examination V72.2 [facility] [address] [phone] Mar, Dental examination V72.2 [facility] [phone] [place] [phone] February, Dental examination V72.2 [facility] [address] [phone] Sep, [facility] [address] [phone] Sep, IMMUNIZATIONS No Known Immunizations SOCIAL HISTORY Never Assessed REASON FOR VISIT PLAN OF CARE VITAL SIGNS MEDICATIONS No Known Medications RESULTS No Results PROCEDURES No Known procedures INSTRUCTIONS MEDICATIONS ADMINISTERED No Known Medications MEDICAL (GENERAL) HISTORY Type Description Date Medical History Prostate Cancer Surgical History Pyloric Stenosis Valve 1979 Hospitalization History Radiation for Prostate cancer 2003 Hospitalization History Pyloric Stenosis Valve 1980
--- OUTSIDE RECORDS SUMMARY | 2019-07-16 17:58 | XMS REPORT ---
Author Author Babar Matt Organization [facility] Address [address] [place], [place] [phone] Care Team Providers Care Education And Training Manager Name Role Phone Babar Matt PCP Allergies [...] daily Problem List Not available. Vital Signs Date Time BP-Sys(mm[Hg] BP-Yina(mm[Hg]) HR(bpm) RR(rpm) Temp WT HT HC BMI BSA BMI Percentile O2 Sat(%) 02/09/2019 1:43:00 PM 136 mmHg 74 mmHg [...] 10:36AM Prostate cancer Feb 09 2019 1:45PM Payers Insurance Name Company Name Plan Name Plan Number Policy Number Policy Group Number Start Date Medicare Part B Medicare Of [place] [id number] N/A [facility] [id number] N/A History of Encounters Visit Date Visit Type Provider 02/09/2019 Office visit Babar Matt MD 01/21/2019 Surgery Babar Matt MD 01/16/2019 Surgery Babar Matt MD 01/09/2019 Office visit Babar Matt MD
--- OUTSIDE RECORDS SUMMARY | 2019-07-16 17:58 | XMS REPORT ---
Author Author Babar Matt [facility] Address [address] [place], [place] [address] Care Team Providers Care Fiberglass Boat Parts Finisher Name Role Phone Babar Matt PCP Allergies [...] take 1 tablet by oral route daily Augmentin 500-125 mg oral tablet 03/20/2019 03/25/2019 [...] Date Medicare Part B Medicare Of [place] [id number] N/A [facility] [id number] N/A History of Encounters Visit Date Visit Type Provider 03/20/2019 Office visit Babar Matt MD 02/09/2019 Office visit Babar Matt MD 02/06/2019 Surgery Babar Matt MD 01/21/2019 Surgery Babar Matt MD 01/21/2019 [facility] Alicia Urbina MD 01/16/2019 Surgery Babar Matt MD 01/09/2019 Office visit Babar Matt MD
--- OUTSIDE RECORDS SUMMARY | 2019-07-16 18:02 | XMS REPORT | Continuity of Care Document ---
Demographics Preferred Language Unknown Marital Status Unknown Mandaeism Affiliation Unknown Race Unknown Ethnic Group Unknown Author Organization Unknown Address Unknown Phone Unavailable Allergies Active Description Code Type Severity Reaction Onset Reported/Identified Relationship to Patient Clinical Status Yes No Known Environmental Allergies [id number] N/A N/A Yes No Known Food Allergies 42865579 N/A N/A Yes VALIUM [id number] BRANDNAME N/A MADE HIM CRAZY Yes VALIUM [id number] BRANDNAME N/A N/A Yes No Known Drug Allergies [id number] Drug Allergy Unknown N/A 12/23/2012 Yes diazepam [id number] Drug Allergy Unknown N/A 01/07/2019 Yes TRIAMICINALONE CREAM TRIAMICINALONE CREAM Unknown N/A 01/07/2019 Medications There is no data. Problems Date Dx Coded Attending Type Code Diagnosis Diagnosed By 09/12/1535 AKASH GONZALES MD Ot C61 MALIGNANT NEOPLASM OF PROSTATE 09/12/1535 AKASH GONZALES MD Ot M48.00 SPINAL STENOSIS, SITE UNSPECIFIED 09/12/1535 AKASH GONZALES MD Ot R53.81 OTHER MALAISE 12/23/2012 Ot 530.19 OTHER ESOPHAGITIS 12/23/2012 Ot 532.90 DUODENAL ULCER NOS 08/16/2014 AGNES CALHOUN MD Ot 185 MALIGN NEOPL PROSTATE 08/16/2014 AGNES CALHOUN MD Ot 597.0 URETHRAL ABSCESS 08/16/2014 AGNES CALHOUN MD Ot 599.0 URIN TRACT INFECTION NOS 08/30/2014 Ot 788.41 08/30/2014 Ot 185 08/30/2014 Ot V72.84 08/30/2014 AKASH GONZALES MD Ot V72.84 08/30/2014 AKASH GONZALES MD Ot 154.1 08/30/2014 CHRISTIAN JOYCE, AKASH Galeano Ot 185 08/30/2014 AKASH GONZALES MD Ot 562.10 08/30/2014 AKASH GONZALES MD Ot V15.3 08/30/2014 JESSICA MATHIS Ot 185 09/16/2014 DONAVAN ALANIZ DDS V03.82 PCV-13 (PREVNAR) DX 09/27/2014 JESSICA MATHIS N Ot 185 09/27/2014 JESSICA MATHIS N Ot 793.7 10/11/2014 CHRISTIAN JOYCE, AKASH Galeano Ot 154.1 10/11/2014 CHRISTIAN JOYCE, AKASH Galeano Ot 185 10/11/2014 AKASH GONZALES MD Ot 562.10 10/11/2014 CHRISTIAN JOYCE, AKASH Galeano Ot V15.3 10/18/2014 JESSICA MATHIS N Ot 185 10/18/2014 JESSICA MATHIS N Ot 793.7 10/18/2014 JESSICA MATHIS N Ot 185 10/22/2014 CHRISTIAN JOYCE, AKASH Galeano Ot 154.1 10/22/2014 CHRISTIAN JOYCE, AKASH Galeano Ot 185 10/22/2014 CHRISTIAN JOYCE, AKASH Galeano Ot 562.10 10/22/2014 AKASH GONZALES MD Ot V15.3 10/22/2014 JESSICA MATHIS N Ot 185 11/03/2014 CHERRI PENG TRAILER ASSEMBLER Ot 185 11/08/2014 CHERRI PENG TRAILER ASSEMBLER Ot 185 11/11/2014 HALIE LORENZO MD Ot 823.00 FX UPPER END TIBIA-CLOSE 11/11/2014 HALIE LORENZO MD Ot 959.7 LOWER LEG INJURY NOS 11/11/2014 HALIE LORENZO MD Ot E000.8 OTHER EXTERNAL CAUSE STATUS 11/11/2014 HALIE LORENZO MD Ot E016.9 OTH ACT INVG PROPERTY [facility],BUILD 11/11/2014 HALIE LORENZO MD Ot E917.9 STRUCK BY OBJ/PERSON NEC 11/21/2014 JESSICA MATHIS N Ot 185 MALIGN NEOPL PROSTATE 02/09/2015 JESSICA MATHIS N Ot 185 02/09/2015 JESSICA MATHIS N Ot V58.69 02/16/2015 Ot 788.41 02/16/2015 Ot 185 02/16/2015 Ot V72.84 02/16/2015 CHRISTIAN JOYCE, AKASH Galeano Ot V72.84 02/16/2015 CHRISTIAN JOYCE, AKASH Galeano Ot 154.1 02/16/2015 CHRISTIAN JOYCE, AKASH Galeano Ot 185 02/16/2015 CHRISTIAN JOYCE, AKASH Galeano Ot 562.10 02/16/2015 AKASH GONZALES MD Ot V15.3 02/16/2015 DEL, BOBAN N Ot 185 02/16/2015 DEL, BOBAN N Ot 793.7 02/16/2015 CHERRI PENG S TRAILER ASSEMBLER Ot 185 02/16/2015 DEL, BOBAN N Ot [...] N Ot 793.7 02/24/2015 CHERRI PENG S TRAILER ASSEMBLER Ot 185 02/24/2015 DEL, BOBAN N Ot [...] N Ot 793.7 02/24/2015 CHERRI PENG S TRAILER ASSEMBLER Ot 185 02/24/2015 DEL, BOBAN N Ot [...] DEL, BOBAN N Ot 793.7 03/02/2015 CHERRI PENGP Ot 185 03/02/2015 DEL, BOBAN N Ot [...] 03/25/2015 DEL, BOBAN N Ot 793.7 03/25/2015 PENGVITORAH S TRAILER ASSEMBLER Ot 185 03/25/2015 DEL, BOBAN N Ot 185 03/25/2015 DEL, BOBAN N Ot 198.5 03/25/2015 DEL, BOBAN N Ot 781.91 03/25/2015 DEL, BOBAN N Ot 185 03/25/2015 DEL, BOBAN N Ot 198.5 03/25/2015 DEL, BOBAN N Ot 733.90 03/25/2015 PENGVITORAH S TRAILER ASSEMBLER Ot 185 03/25/2015 PENGVITORAH S TRAILER ASSEMBLER Ot 198.5 03/25/2015 DEL, BOBAN N Ot [...] 04/06/2015 DEL, BOBAN N Ot 793.7 04/06/2015 PENGVITORAH S TRAILER ASSEMBLER Ot 185 04/06/2015 DEL, BOBAN N Ot 185 04/06/2015 DEL, BOBAN N Ot 198.5 04/06/2015 DEL, BOBAN N Ot 781.91 04/06/2015 DEL, BOBAN N Ot 185 04/06/2015 DEL, BOBAN N Ot 198.5 04/06/2015 DEL, BOBAN N Ot 733.90 04/06/2015 PENGVITORAH S TRAILER ASSEMBLER Ot 185 04/06/2015 PENG HILAH S TRAILER ASSEMBLER Ot 198.5 04/06/2015 DEL, BOBAN N Ot 185 04/06/2015 DEL, BOBAN N Ot V58.69 04/06/2015 PENGVITORAH S TRAILER ASSEMBLER Ot 185 04/06/2015 PENG CHERRI Fernandez TRAILER ASSEMBLER Ot 198.5 04/26/2015 PENG CHERRI S TRAILER ASSEMBLER Ot 185 04/26/2015 PENG CHERRI S TRAILER ASSEMBLER Ot 198.5 05/10/2015 DEL, BOBAN N Ot [...] 05/26/2015 DEL, BOBAN N Ot 793.7 05/26/2015 VITOR PENGNEYMAR S TRAILER ASSEMBLER Ot 185 05/26/2015 DEL, BOBAN N Ot 185 05/26/2015 DEL, BOBAN N Ot 198.5 05/26/2015 DEL, BOBAN N Ot 781.91 05/26/2015 DEL, BOBAN N Ot 185 05/26/2015 DEL, BOBAN N Ot 198.5 05/26/2015 DEL, BOBAN N Ot 733.90 05/26/2015 CHERRI PENG TRAILER ASSEMBLER Ot 185 05/26/2015 CHERRI PENG TRAILER ASSEMBLER Ot 198.5 05/26/2015 DEL, BOBAN N Ot [...] V58.69 OT MED,LT,CURRENT USE 09/21/2015 CHERRI PENG TRAILER ASSEMBLER Ot C61 09/21/2015 CHERRI PENG TRAILER ASSEMBLER Ot C79.51 09/21/2015 CHERRI PENG TRAILER ASSEMBLER Ot E55.9 09/21/2015 CHERRI PENG TRAILER ASSEMBLER Ot R23.2 09/21/2015 CHERRI PENG TRAILER ASSEMBLER Ot Z79.899 10/11/2015 CHERRI PENG TRAILER ASSEMBLER Ot C61 10/11/2015 CHERRI PENG TRAILER ASSEMBLER Ot C79.51 10/11/2015 CHERRI PENG TRAILER ASSEMBLER Ot E55.9 10/11/2015 CHERRI PENG TRAILER ASSEMBLER Ot R23.2 10/11/2015 CHERRI PENG TRAILER ASSEMBLER Ot Z79.899 10/25/2015 DEL, BOBAN N Ot C61 10/25/2015 DEL BOBAN N Ot C79.51 10/25/2015 BOBBI MATHISAN N Ot Z79.899 11/09/2015 DELJESSICA GALARZA N Ot C61 11/09/2015 DELJESSICA GALARZA N Ot C79.51 11/09/2015 JESSICA MATHIS N Ot Z79.899 11/23/2015 DELJESSICA GALARZA N Ot C61 MALIGNANT NEOPLASM OF PROSTATE 11/23/2015 DELJESSICA GALARZA N Ot C79.51 SECONDARY MALIGNANT NEOPLASM OF BONE 11/23/2015 JESSICA MATHIS N Ot Z79.899 OTHER SUPPLIER QUALITY MANAGER (CURRENT) DRUG THERAPY 11/28/2015 DEL, BOBAN N Ot C61 11/28/2015 DEL, BOBAN N Ot C79.51 11/28/2015 DELBOBBI GALARZAAN N Ot Z79.899 01/03/2016 DEL, BOBLUZ N Ot C61 01/03/2016 DEL, BOBLUZ N Ot C79.51 01/03/2016 DELJESSICA GALARZA N [...] Galeano Ot 154.1 MALIGNANT NEOPL RECTUM 02/10/2016 CHRISTIAN JOYCE, AKASH Galeano Ot 185 MALIGN NEOPL PROSTATE 02/10/2016 CHRISTIAN JOYCE, AKASH Galeano Ot 562.10 DIVERTICULOSIS COLON (W/O MENT OF HEMORR 02/10/2016 AKASH GONZALES MD Ot V15.3 HX OF IRRADIATION 02/10/2016 DELJESSICA N Ot 185 MALIGN NEOPL PROSTATE 02/10/2016 DEL BOBLUZ N Ot 793.7 NOSP (ABN) FINDINGS ON RADIOLOGICAL OT 02/10/2016 CHERRI PENG TRAILER ASSEMBLER Ot 185 MALIGN NEOPL PROSTATE 02/10/2016 DELBOBBIAN N Ot 185 MALIGN NEOPL PROSTATE 02/10/2016 DEL BOBAN N Ot 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 02/10/2016 JESSICA MATHIS N Ot 781.91 LOSS OF HEIGHT 02/10/2016 DEL JESSICA N Ot 185 MALIGN NEOPL PROSTATE 02/10/2016 DEL JESSICA N Ot 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 02/10/2016 DEL JESSICA N Ot 733.90 BONE CARTILAGE DIS NOS 02/10/2016 CHERRI PENG S TRAILER ASSEMBLER Ot 185 MALIGN NEOPL PROSTATE 02/10/2016 CHERRI PENG S TRAILER ASSEMBLER Ot 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 02/10/2016 CHRISTIAN JOYCE, AKASH Galeano Ot 787.20 DYSPHAGIA, UNSPECIFIED 02/10/2016 AKASH GONZALES MD Ot V72.84 EXAM PRE-OPERATIVE NOS 02/10/2016 CHERRI PENG S TRAILER ASSEMBLER Ot C61 MALIGNANT NEOPLASM OF PROSTATE 02/10/2016 CHERRI PENG S TRAILER ASSEMBLER Ot C79.51 SECONDARY MALIGNANT NEOPLASM OF BONE 02/10/2016 CHERRI PENG S TRAILER ASSEMBLER Ot 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, UNSPECIFIED 02/10/2016 CHERRI PENG S TRAILER ASSEMBLER Ot R23.2 FLUSHING 02/10/2016 CHERRI PENG S TRAILER ASSEMBLER Ot Z79.899 OTHER CARE HOME (CURRENT) DRUG THERAPY 02/10/2016 DEL JESSICA N Ot C61 MALIGNANT NEOPLASM OF PROSTATE 02/10/2016 DEL, JESSICA N Ot C79.51 SECONDARY MALIGNANT NEOPLASM OF BONE 02/10/2016 DEL JESSICA N Ot Z79.899 OTHER CARE HOME (CURRENT) DRUG THERAPY 02/13/2016 JESSICA MATHIS N Ot C61 MALIGNANT NEOPLASM OF PROSTATE 02/13/2016 DELJESSICA N 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 02/13/2016 DELJESSICA N 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 02/13/2016 DELJESSICA N Ot C61 MALIGNANT NEOPLASM OF PROSTATE 02/13/2016 DELJESSICA N 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 02/13/2016 DELBOBBIAN N Ot C79.51 SECONDARY MALIGNANT NEOPLASM OF BONE 02/22/2016 DELJESSICA N Ot C61 MALIGNANT NEOPLASM OF PROSTATE 02/22/2016 DELJESSICA N Ot C79.51 SECONDARY MALIGNANT NEOPLASM OF BONE 02/22/2016 JESSICA MATHIS N Ot Z79.899 OTHER CARE HOME (CURRENT) DRUG THERAPY 03/01/2016 JESSICA MATHIS N Ot C61 MALIGNANT NEOPLASM OF PROSTATE 03/01/2016 JESSICA MATHIS N 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 03/01/2016 JESSICA MATHIS N Ot C79.51 SECONDARY MALIGNANT NEOPLASM OF BONE 03/05/2016 Ot 788.41 URINARY FREQUENCY 03/05/2016 Ot 185 MALIGN NEOPL PROSTATE 03/05/2016 Ot V72.84 EXAM PRE-OPERATIVE NOS 03/05/2016 CHRISTIAN JOYCE, AKASH Galeano Ot V72.84 EXAM PRE-OPERATIVE NOS 03/05/2016 CHRISTIAN JOYCE, AKASH Galeano Ot 154.1 MALIGNANT NEOPL RECTUM 03/05/2016 CHRISTIAN JOYCE, AKASH Galeano Ot 185 MALIGN NEOPL PROSTATE 03/05/2016 CHRISTIAN JOYCE, AKASH Galeano Ot 562.10 DIVERTICULOSIS COLON (W/O MENT OF HEMORR 03/05/2016 AKASH GONZALES MD Ot V15.3 HX OF IRRADIATION 03/05/2016 JESSICA MATHIS N Ot 185 MALIGN NEOPL PROSTATE 03/05/2016 JESSICA MATHIS N Ot 793.7 NOSP (ABN) FINDINGS ON RADIOLOGICAL OT 03/05/2016 CHERRI PENG TRAILER ASSEMBLER Ot 185 MALIGN NEOPL PROSTATE 03/05/2016 JESSICA MATHIS N Ot 185 MALIGN NEOPL PROSTATE 03/05/2016 JESSICA MATHIS N Ot 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 03/05/2016 JESSICA MATHIS N Ot 781.91 LOSS OF HEIGHT 03/05/2016 JESSICA MATHIS N Ot 185 MALIGN NEOPL PROSTATE 03/05/2016 JESSICA MATHIS N Ot 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 03/05/2016 JESSICA MATHIS N Ot 733.90 BONE CARTILAGE DIS NOS 03/05/2016 CHERRI PENG TRAILER ASSEMBLER Ot 185 MALIGN NEOPL PROSTATE 03/05/2016 CHERRI PENG TRAILER ASSEMBLER Ot 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 03/05/2016 CHRISTIAN JOYCE, AKASH Galeano Ot 787.20 DYSPHAGIA, UNSPECIFIED 03/05/2016 CHRISTIAN JOYCE, AKASH Galeano Ot V72.84 EXAM PRE-OPERATIVE NOS 03/05/2016 CHERRI PENG TRAILER ASSEMBLER Ot C61 MALIGNANT NEOPLASM OF PROSTATE 03/05/2016 CHERRI PENG TRAILER ASSEMBLER Ot C79.51 SECONDARY MALIGNANT NEOPLASM OF BONE 03/05/2016 CHERRI PENG TRAILER ASSEMBLER Ot 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, UNSPECIFIED 03/05/2016 CHERRI PENG TRAILER ASSEMBLER Ot R23.2 FLUSHING 03/05/2016 CHERRI PENG TRAILER ASSEMBLER Ot Z79.899 OTHER CARE HOME (CURRENT) DRUG THERAPY 03/05/2016 DELJESSICA GALARZA N Ot C61 MALIGNANT NEOPLASM OF PROSTATE 03/05/2016 DELJESSICA N 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 03/05/2016 DELJESSICA N Ot C79.51 SECONDARY MALIGNANT NEOPLASM OF BONE 03/05/2016 JESSICA MATHIS N Ot C61 MALIGNANT NEOPLASM OF PROSTATE 03/05/2016 DELJESSICA N Ot C79.51 SECONDARY MALIGNANT NEOPLASM OF BONE 03/05/2016 DELJESSICA N Ot Z79.899 OTHER SUPPLIER QUALITY MANAGER (CURRENT) DRUG THERAPY 03/13/2016 Ot 788.41 URINARY [...] NOSP (ABN) FINDINGS ON RADIOLOGICAL OT 03/13/2016 VITOR PENGNEYMAR Jim TRAILER ASSEMBLER Ot 185 MALIGN NEOPL PROSTATE 03/13/2016 JESSICA MATHIS N Ot 185 MALIGN NEOPL PROSTATE 03/13/2016 JESSICA MATHIS N Ot 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 03/13/2016 JESSICA MATHIS N Ot 781.91 LOSS OF HEIGHT 03/13/2016 JESSICA MATHIS N Ot 185 MALIGN NEOPL PROSTATE 03/13/2016 JESSICA MATHIS N Ot 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 03/13/2016 DELJESSICA GALARZA N Ot 733.90 BONE CARTILAGE DIS NOS 03/13/2016 PENGCHERRI Fernandez S TRAILER ASSEMBLER Ot 185 MALIGN NEOPL PROSTATE 03/13/2016 PENG, HILAH S TRAILER ASSEMBLER Ot 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 03/13/2016 AKASH GONZALES MD Ot 787.20 DYSPHAGIA, UNSPECIFIED 03/13/2016 AKASH GONZALES MD Ot V72.84 EXAM PRE-OPERATIVE NOS 03/13/2016 PENGVITORAH S TRAILER ASSEMBLER Ot C61 MALIGNANT NEOPLASM OF PROSTATE 03/13/2016 PENG HILAH S TRAILER ASSEMBLER Ot C79.51 SECONDARY MALIGNANT NEOPLASM OF BONE 03/13/2016 PENGCHERRI Fernandez S TRAILER ASSEMBLER Ot 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, UNSPECIFIED 03/13/2016 PENGCHERRI S TRAILER ASSEMBLER Ot R23.2 FLUSHING 03/13/2016 PENG CHERRI S TRAILER ASSEMBLER Ot Z79.899 OTHER CARE HOME (CURRENT) DRUG THERAPY 03/13/2016 JESSICA MATHIS N Ot C61 MALIGNANT NEOPLASM OF PROSTATE 03/13/2016 DELJESSICA GALARZA N 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 03/13/2016 JESSICA MATHIS N Ot C79.51 SECONDARY MALIGNANT NEOPLASM OF BONE 03/13/2016 JESSICA MATHIS N Ot C61 MALIGNANT NEOPLASM OF PROSTATE 03/13/2016 DELJESSICA GALARZA N Ot C79.51 SECONDARY MALIGNANT NEOPLASM OF BONE 03/13/2016 JESSICA MATHIS N Ot Z79.899 OTHER CARE HOME (CURRENT) DRUG THERAPY 03/21/2016 Ot 788.41 URINARY FREQUENCY 03/21/2016 Ot 185 MALIGN NEOPL PROSTATE 03/21/2016 Ot V72.84 EXAM PRE-OPERATIVE NOS 03/21/2016 AKASH GONZALES MD Ot V72.84 EXAM PRE-OPERATIVE NOS 03/21/2016 AKASH GONZALES MD Ot 154.1 MALIGNANT NEOPL RECTUM 03/21/2016 AKASH GONZALES MD Ot 185 MALIGN NEOPL PROSTATE 03/21/2016 AKASH GONZALES MD Ot 562.10 DIVERTICULOSIS COLON (W/O MENT OF HEMORR 03/21/2016 AKASH GONZALES MD Ot V15.3 HX OF IRRADIATION 03/21/2016 JESSICA MATHIS N Ot 185 MALIGN NEOPL PROSTATE 03/21/2016 JESSICA MATHIS N Ot 793.7 NOSP (ABN) FINDINGS ON RADIOLOGICAL OT 03/21/2016 CHERRI PENG S TRAILER ASSEMBLER Ot 185 MALIGN NEOPL PROSTATE 03/21/2016 DEL BOBAN N Ot 185 MALIGN NEOPL PROSTATE 03/21/2016 DEL, BOBAN N Ot 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 03/21/2016 DEL BOBAN N Ot 781.91 LOSS OF HEIGHT 03/21/2016 BOBBI MATHISAN N Ot 185 MALIGN NEOPL PROSTATE 03/21/2016 DELBOBBIAN N Ot 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 03/21/2016 DELBOBBI GALARZAAN N Ot 733.90 BONE CARTILAGE DIS NOS 03/21/2016 CHERRI PENG S TRAILER ASSEMBLER Ot 185 MALIGN NEOPL PROSTATE 03/21/2016 CHERRI PENG S TRAILER ASSEMBLER Ot 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 03/21/2016 CHRISTIAN JOYCE, AKASH Galeano Ot 787.20 DYSPHAGIA, UNSPECIFIED 03/21/2016 CHRISTIAN JOYCE, AKASH Galeano Ot V72.84 EXAM PRE-OPERATIVE NOS 03/21/2016 CHERRI PENG S TRAILER ASSEMBLER Ot C61 MALIGNANT NEOPLASM OF PROSTATE 03/21/2016 CHERRI PENG S TRAILER ASSEMBLER Ot C79.51 SECONDARY MALIGNANT NEOPLASM OF BONE 03/21/2016 CHERRI PENG S TRAILER ASSEMBLER Ot 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, UNSPECIFIED 03/21/2016 CHERRI PENG S TRAILER ASSEMBLER Ot R23.2 FLUSHING 03/21/2016 CHERRI PENG S TRAILER ASSEMBLER Ot Z79.899 OTHER SUPPLIER QUALITY MANAGER (CURRENT) DRUG THERAPY 03/21/2016 DEL BOBAN N Ot C61 MALIGNANT NEOPLASM OF PROSTATE 03/21/2016 EDL BOBAN N 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 03/21/2016 DEL, BOBAN N Ot C79.51 SECONDARY MALIGNANT NEOPLASM OF BONE 03/21/2016 DEL BOBAN N Ot C61 MALIGNANT NEOPLASM OF PROSTATE 03/21/2016 DEL BOBAN N Ot C79.51 SECONDARY MALIGNANT NEOPLASM OF BONE 03/21/2016 DEL, BOBAN N Ot Z79.899 OTHER SUPPLIER QUALITY MANAGER (CURRENT) DRUG THERAPY 03/22/2016 AKASH GONZALES MD Ot C61 MALIGNANT NEOPLASM OF PROSTATE 03/22/2016 AKASH GONZALES MD, 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 03/22/2016 AKASH GONZALES MD Ot Z01.818 ENCOUNTER FOR OTHER PREPROCEDURAL EXAMIN 03/22/2016 AKASH GONZALES MD Ot C61 MALIGNANT NEOPLASM OF PROSTATE 03/22/2016 AKASH GONZALES MD, 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 03/22/2016 AKASH GONZALES MD, Ot Z01.818 ENCOUNTER FOR OTHER PREPROCEDURAL EXAMIN 03/23/2016 AKASH GONZALES MD, Ot C61 MALIGNANT NEOPLASM OF PROSTATE 03/23/2016 AKASH GONZALES MD, 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 03/23/2016 AKASH GONZALES MD, Ot 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 [...] FINDINGS ON RADIOLOGICAL OT 03/23/2016 CHERRI PENG TRAILER ASSEMBLER Ot 185 MALIGN NEOPL PROSTATE 03/23/2016 JESSICA MATHIS N Ot 185 MALIGN NEOPL PROSTATE 03/23/2016 JESSICA MATHIS Ot 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 03/23/2016 JESSICA MATHIS Ot 781.91 LOSS OF HEIGHT 03/23/2016 JESSICA MATHIS N Ot 185 MALIGN NEOPL PROSTATE 03/23/2016 JESSICA MATHIS N Ot 198.5 SECONDARY MALIG KAARN BONE 03/23/2016 JESSICA MATHIS N Ot 733.90 BONE CARTILAGE DIS NOS 03/23/2016 PENGVITORAH S TRAILER ASSEMBLER Ot 185 MALIGN NEOPL PROSTATE 03/23/2016 PENG HILAH S TRAILER ASSEMBLER Ot 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 03/23/2016 AKASH GONZALES MD Ot 787.20 DYSPHAGIA, UNSPECIFIED 03/23/2016 AKASH GONZALES MD Ot V72.84 EXAM PRE-OPERATIVE NOS 03/23/2016 PENG HILAH S TRAILER ASSEMBLER Ot C61 MALIGNANT NEOPLASM OF PROSTATE 03/23/2016 PENG HILAH S TRAILER ASSEMBLER Ot C79.51 SECONDARY MALIGNANT NEOPLASM OF BONE 03/23/2016 CHERRI PENG S TRAILER ASSEMBLER Ot 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, UNSPECIFIED 03/23/2016 PENGVITORAH S TRAILER ASSEMBLER Ot R23.2 FLUSHING 03/23/2016 VITOR PENGAH S TRAILER ASSEMBLER Ot Z79.899 OTHER CARE HOME (CURRENT) DRUG THERAPY 03/23/2016 JESSICA MATHIS N Ot C61 MALIGNANT NEOPLASM OF PROSTATE 03/23/2016 JESSICA MTAHIS N 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 03/23/2016 JESSICA MATHIS N Ot C79.51 SECONDARY MALIGNANT NEOPLASM OF BONE 03/23/2016 JESSICA MATHIS N Ot C61 MALIGNANT NEOPLASM OF PROSTATE 03/23/2016 JESSICA MATHIS N Ot C79.51 SECONDARY MALIGNANT NEOPLASM OF BONE 03/23/2016 JESSICA MATHIS N Ot Z79.899 OTHER SUPPLIER QUALITY MANAGER (CURRENT) DRUG THERAPY 03/27/2016 AKASH GONZALES MD [...] 04/03/2016 Ot V72.84 EXAM PRE-OPERATIVE NOS 04/03/2016 CHRISTIAN JOYCE, AKASH Galeano Ot V72.84 EXAM PRE-OPERATIVE NOS 04/03/2016 CHRISTIAN JOYCE, AKASH Galeano Ot 154.1 MALIGNANT NEOPL RECTUM 04/03/2016 AKASH GONZALES MD Ot 185 MALIGN NEOPL PROSTATE 04/03/2016 CHRISTIAN JOYCE, AKASH Galeano Ot 562.10 DIVERTICULOSIS COLON (W/O MENT OF HEMORR 04/03/2016 AKASH GONZALES MD Ot V15.3 HX OF IRRADIATION 04/03/2016 DEL BOBAN N Ot 185 MALIGN NEOPL PROSTATE 04/03/2016 DEL, BOBAN N Ot 793.7 NOSP (ABN) FINDINGS ON RADIOLOGICAL OT 04/03/2016 CHERRI PENG S TRAILER ASSEMBLER Ot 185 MALIGN NEOPL PROSTATE 04/03/2016 DEL, BOBAN N Ot 185 MALIGN NEOPL PROSTATE 04/03/2016 DEL, BOBAN N Ot 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 04/03/2016 DEL, BOBAN N Ot 781.91 LOSS OF HEIGHT 04/03/2016 DEL, BOBAN N Ot 185 MALIGN NEOPL PROSTATE 04/03/2016 DEL, BOBAN N Ot 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 04/03/2016 DEL, BOBAN N Ot 733.90 BONE CARTILAGE DIS NOS 04/03/2016 CHERRI PENG S TRAILER ASSEMBLER Ot 185 MALIGN NEOPL PROSTATE 04/03/2016 CHERRI PENG S TRAILER ASSEMBLER Ot 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 04/03/2016 CHRISTIAN JOYCE, AKASH Galeano Ot 787.20 DYSPHAGIA, UNSPECIFIED 04/03/2016 AKASH GONZALES MD Ot V72.84 EXAM PRE-OPERATIVE NOS 04/03/2016 CHERRI PENG S TRAILER ASSEMBLER Ot C61 MALIGNANT NEOPLASM OF PROSTATE 04/03/2016 CHERRI PENG S TRAILER ASSEMBLER Ot C79.51 SECONDARY MALIGNANT NEOPLASM OF BONE 04/03/2016 CHERRI PENG S TRAILER ASSEMBLER Ot 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, UNSPECIFIED 04/03/2016 CHERRI PENG S TRAILER ASSEMBLER Ot R23.2 FLUSHING 04/03/2016 CHERRI PENG S TRAILER ASSEMBLER Ot Z79.899 OTHER SUPPLIER QUALITY MANAGER (CURRENT) DRUG THERAPY 04/03/2016 JESSICA MATHIS N [...] 04/03/2016 JESSICA MATHIS N Ot Z79.899 OTHER CARE HOME (CURRENT) DRUG THERAPY 04/10/2016 Ot 788.41 URINARY FREQUENCY 04/10/2016 Ot 185 MALIGN NEOPL PROSTATE 04/10/2016 Ot V72.84 EXAM PRE-OPERATIVE NOS 04/10/2016 CHRISTIAN JOYCE, AKASH Galeano Ot V72.84 EXAM PRE-OPERATIVE NOS 04/10/2016 CHRISTIAN JOYCE, AKASH Galeano Ot 154.1 MALIGNANT NEOPL RECTUM 04/10/2016 CHRISTIAN JOYCE, AKASH Galeano Ot 185 MALIGN NEOPL PROSTATE 04/10/2016 CHRISTIAN JOYCE, AKASH Galeano Ot 562.10 DIVERTICULOSIS COLON (W/O MENT OF HEMORR 04/10/2016 CHRISTIAN JOYCE, AKASH Galeano Ot V15.3 HX OF IRRADIATION 04/10/2016 BOBBI MATHISAN N Ot 185 MALIGN NEOPL PROSTATE 04/10/2016 JESSICA MATHIS N Ot 793.7 NOSP (ABN) FINDINGS ON RADIOLOGICAL OT 04/10/2016 CHERRI PENG S TRAILER ASSEMBLER Ot 185 MALIGN NEOPL PROSTATE 04/10/2016 DEL [...] CARTILAGE DIS NOS 04/10/2016 CHERRI PENG S TRAILER ASSEMBLER Ot 185 MALIGN NEOPL PROSTATE 04/10/2016 CHERRI PENG S TRAILER ASSEMBLER Ot 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 04/10/2016 CHRISTIAN JOYCE, AKASH Galeano Ot 787.20 DYSPHAGIA, UNSPECIFIED 04/10/2016 CHRISTIAN JOYCE, AKASH Galeano Ot V72.84 EXAM PRE-OPERATIVE NOS 04/10/2016 CHERRI PENG TRAILER ASSEMBLER Ot C61 MALIGNANT NEOPLASM OF PROSTATE 04/10/2016 CHERRI PENG TRAILER ASSEMBLER Ot C79.51 SECONDARY MALIGNANT NEOPLASM OF BONE 04/10/2016 CHERRI PENG TRAILER ASSEMBLER Ot 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, UNSPECIFIED 04/10/2016 CHERRI PENG TRAILER ASSEMBLER Ot R23.2 FLUSHING 04/10/2016 CHERRI PENG S TRAILER ASSEMBLER Ot Z79.899 OTHER CARE HOME (CURRENT) DRUG THERAPY 04/10/2016 DELJESSICA GALARZA N Ot C61 MALIGNANT NEOPLASM OF PROSTATE 04/10/2016 DELJESSICA N 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 04/10/2016 DELJESSICA N Ot C79.51 SECONDARY MALIGNANT NEOPLASM OF BONE 04/10/2016 JESSICA MATHIS N Ot C61 MALIGNANT NEOPLASM OF PROSTATE 04/10/2016 DELJESSICA N Ot C79.51 SECONDARY MALIGNANT NEOPLASM OF BONE 04/10/2016 DELJESSICA N Ot Z79.899 OTHER CARE HOME (CURRENT) DRUG THERAPY 04/12/2016 Ot 788.41 URINARY FREQUENCY 04/12/2016 Ot 185 MALIGN NEOPL PROSTATE 04/12/2016 Ot V72.84 EXAM PRE-OPERATIVE NOS 04/12/2016 CHRISTIAN JOYCE, AKASH Galeano Ot V72.84 EXAM PRE-OPERATIVE NOS 04/12/2016 CHRISTIAN JOYCE, AKASH Galeano Ot 154.1 MALIGNANT NEOPL RECTUM 04/12/2016 AKASH GONZALES MD Ot 185 MALIGN NEOPL PROSTATE 04/12/2016 AKASH GONZALES MD Ot 562.10 DIVERTICULOSIS COLON (W/O MENT OF HEMORR 04/12/2016 AKASH GONZALES MD Ot V15.3 HX OF IRRADIATION 04/12/2016 JESSICA MATHIS N Ot 185 MALIGN NEOPL PROSTATE 04/12/2016 JESSICA MATHIS N Ot 793.7 NOSP (ABN) FINDINGS ON RADIOLOGICAL OT 04/12/2016 CHERRI PENG S TRAILER ASSEMBLER Ot 185 MALIGN NEOPL PROSTATE 04/12/2016 BOBBI MATHISAN N Ot 185 MALIGN NEOPL PROSTATE 04/12/2016 JESSICA MATHIS N Ot 198.5 SECONDARY MALIG KARAN BONE 04/12/2016 JESSICA MATHIS N Ot 781.91 LOSS OF HEIGHT 04/12/2016 JESSICA MATHIS N Ot 185 MALIGN NEOPL PROSTATE 04/12/2016 JESSICA MATHIS N Ot 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 04/12/2016 JESSICA MATHIS N Ot 733.90 BONE CARTILAGE DIS NOS 04/12/2016 CHERRI PENG S TRAILER ASSEMBLER Ot 185 MALIGN NEOPL PROSTATE 04/12/2016 CHERRI PENG TRAILER ASSEMBLER Ot 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 04/12/2016 CHRISTIAN JOYCE, AKASH Galeano Ot 787.20 DYSPHAGIA, UNSPECIFIED 04/12/2016 AKASH GONZALES MD Ot V72.84 EXAM PRE-OPERATIVE NOS 04/12/2016 CHERRI PENG TRAILER ASSEMBLER Ot C61 MALIGNANT NEOPLASM OF PROSTATE 04/12/2016 CHERRI PENG S TRAILER ASSEMBLER Ot C79.51 SECONDARY MALIGNANT NEOPLASM OF BONE 04/12/2016 CHERRI PENG TRAILER ASSEMBLER Ot 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, UNSPECIFIED 04/12/2016 CHERRI PENG S TRAILER ASSEMBLER Ot R23.2 FLUSHING 04/12/2016 CHERRI PENG S TRAILER ASSEMBLER Ot Z79.899 OTHER SUPPLIER QUALITY MANAGER (CURRENT) DRUG THERAPY 04/12/2016 JESSICA MATHIS N Ot C61 MALIGNANT NEOPLASM OF PROSTATE 04/12/2016 JESSICA MATHIS N 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 04/12/2016 JESSIAC MATHIS N Ot C79.51 SECONDARY MALIGNANT NEOPLASM OF BONE 04/12/2016 JESSICA MATHIS N Ot C61 MALIGNANT NEOPLASM OF PROSTATE 04/12/2016 JESSICA MATHIS N Ot C79.51 SECONDARY MALIGNANT NEOPLASM OF BONE 04/12/2016 JESSICA MATHIS N Ot Z79.899 OTHER SUPPLIER QUALITY MANAGER (CURRENT) DRUG THERAPY 05/04/2016 JESSICA MATHIS N Ot C61 MALIGNANT NEOPLASM OF PROSTATE 05/04/2016 DEL BOBAN N Ot C79.51 SECONDARY MALIGNANT NEOPLASM OF BONE 05/04/2016 DELJESSICA GALARZA N Ot Z79.899 OTHER SUPPLIER QUALITY MANAGER (CURRENT) DRUG THERAPY 05/07/2016 Ot 788.41 URINARY FREQUENCY 05/07/2016 Ot 185 MALIGN NEOPL PROSTATE 05/07/2016 Ot V72.84 EXAM PRE-OPERATIVE NOS 05/07/2016 CHRISTIAN JOYCE, AKASH Galeano Ot V72.84 EXAM PRE-OPERATIVE NOS 05/07/2016 CHRISTIAN JOYCE, AKASH Galeano Ot 154.1 MALIGNANT NEOPL RECTUM 05/07/2016 CHRISTIAN JOYCE, AKASH Galeano Ot 185 MALIGN NEOPL PROSTATE 05/07/2016 CHRISTIAN JOYCE, AKASH Galeano Ot 562.10 DIVERTICULOSIS COLON (W/O MENT OF HEMORR 05/07/2016 CHRISTIAN JOYCE, AKASH Galeano Ot V15.3 HX OF IRRADIATION 05/07/2016 DEL, BOBAN N Ot 185 MALIGN NEOPL PROSTATE 05/07/2016 DEL, BOBAN N Ot 793.7 NOSP (ABN) FINDINGS ON RADIOLOGICAL OT 05/07/2016 CHERRI PENG S TRAILER ASSEMBLER Ot 185 MALIGN NEOPL PROSTATE 05/07/2016 DEL, BOBAN N Ot 185 MALIGN NEOPL PROSTATE 05/07/2016 DEL, BOBAN N Ot 198.5 SECONDARY MALIG KARAN BONE 05/07/2016 DEL, BOBAN N Ot 781.91 LOSS OF HEIGHT 05/07/2016 DEL, BOBAN N Ot 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 05/07/2016 DEL, BOBAN N Ot 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 05/07/2016 DEL, BOBAN N Ot 733.90 BONE CARTILAGE DIS NOS 05/07/2016 CHERRI PENG S TRAILER ASSEMBLER Ot 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 05/07/2016 CHERRI PENG S TRAILER ASSEMBLER Ot 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 05/07/2016 CHRISTIAN JOYCE, AKASH Galeano Ot 787.20 DYSPHAGIA, UNSPECIFIED 05/07/2016 CHRISTIAN JOYCE, AKASH Galeano Ot V72.84 EXAM PRE-OPERATIVE NOS 05/07/2016 CHERRI PENG S TRAILER ASSEMBLER Ot C61 MALIGNANT NEOPLASM OF PROSTATE 05/07/2016 CHERRI PENG S TRAILER ASSEMBLER Ot C79.51 SECONDARY MALIGNANT NEOPLASM OF BONE 05/07/2016 CHERRI PENG S TRAILER ASSEMBLER Ot 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, UNSPECIFIED 05/07/2016 CHERRI PENG S TRAILER ASSEMBLER Ot R23.2 FLUSHING 05/07/2016 CHERRI PENG S TRAILER ASSEMBLER Ot Z79.899 OTHER SUPPLIER QUALITY MANAGER (CURRENT) DRUG THERAPY 05/07/2016 BOBBI MATHISAN N Ot C61 MALIGNANT NEOPLASM OF PROSTATE 05/07/2016 JESSICA MATHIS N 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 05/07/2016 JESSICA MATHIS N Ot C79.51 SECONDARY MALIGNANT NEOPLASM OF BONE 05/07/2016 JESSICA MATHIS N Ot C61 MALIGNANT NEOPLASM OF PROSTATE 05/07/2016 JESSICA MATHIS N Ot C79.51 SECONDARY MALIGNANT NEOPLASM OF BONE 05/07/2016 JESSICA MATHIS N Ot Z79.899 OTHER SUPPLIER QUALITY MANAGER (CURRENT) DRUG THERAPY 05/08/2016 Ot 788.41 URINARY [...] Galeano Ot V15.3 HX OF IRRADIATION 05/08/2016 DEL BOBAN N Ot 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 05/08/2016 DEL, BOBAN N Ot 793.7 NOSP (ABN) FINDINGS ON RADIOLOGICAL OT 05/08/2016 CHERRI PENG TRAILER ASSEMBLER Ot 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 05/08/2016 DEL, BOBAN N Ot 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 05/08/2016 DEL, BOBAN N Ot 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 05/08/2016 DEL BOBAN N Ot 781.91 LOSS OF HEIGHT 05/08/2016 DEL, BOBAN N Ot 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 05/08/2016 DEL, BOBAN N Ot 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 05/08/2016 DEL BOBAN N Ot 733.90 BONE CARTILAGE DIS NOS 05/08/2016 CHERRI PENG TRAILER ASSEMBLER Ot 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 05/08/2016 CHERRI PENG TRAILER ASSEMBLER Ot 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 05/08/2016 CHRISTIAN JOYCE, AKASH Galeano Ot 787.20 DYSPHAGIA, UNSPECIFIED 05/08/2016 CHRISTIAN JOYCE, AKASH Galeano Ot V72.84 EXAM PRE-OPERATIVE NOS 05/08/2016 CHERRI PENG TRAILER ASSEMBLER Ot C61 MALIGNANT NEOPLASM OF PROSTATE 05/08/2016 CHERRI PENG TRAILER ASSEMBLER Ot C79.51 SECONDARY MALIGNANT NEOPLASM OF BONE 05/08/2016 CHERRI PENG TRAILER ASSEMBLER Ot 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, UNSPECIFIED 05/08/2016 CHERRI PENG TRAILER ASSEMBLER Ot R23.2 FLUSHING 05/08/2016 CHERRI PENG TRAILER ASSEMBLER Ot Z79.899 OTHER CARE HOME (CURRENT) DRUG THERAPY 05/08/2016 DELJESSICA GALARZA N Ot C61 MALIGNANT NEOPLASM OF PROSTATE 05/08/2016 DELJESSICA N 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 05/08/2016 JESSICA MATHIS N Ot C79.51 SECONDARY MALIGNANT NEOPLASM OF BONE 05/08/2016 JESSICA MATHIS N Ot C61 MALIGNANT NEOPLASM OF PROSTATE 05/08/2016 JESSICA MATHIS N Ot C79.51 SECONDARY MALIGNANT NEOPLASM OF BONE 05/08/2016 JESSICA MATHIS N Ot Z79.899 OTHER CARE HOME (CURRENT) DRUG THERAPY 05/11/2016 Ot 788.41 URINARY FREQUENCY 05/11/2016 Ot 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 05/11/2016 Ot V72.84 EXAM PRE-OPERATIVE NOS 05/11/2016 CHRISTIAN JOYCE, AKASH Galeano Ot V72.84 EXAM PRE-OPERATIVE NOS 05/11/2016 CHRISTIAN JOYCE, AKASH Galeano Ot 154.1 MALIGNANT NEOPL RECTUM 05/11/2016 AKASH GONZALES MD Ot 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 05/11/2016 CHRISTIAN JOYCE, AKASH Galeano Ot 562.10 DIVERTICULOSIS COLON (W/O MENT OF HEMORR 05/11/2016 AKASH GONZALES MD Ot V15.3 HX OF IRRADIATION 05/11/2016 JESSICA MATHIS N Ot 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 05/11/2016 JESSICA MATHIS N Ot 793.7 NOSP (ABN) FINDINGS ON RADIOLOGICAL OT 05/11/2016 CHERRI PENG TRAILER ASSEMBLER Ot 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 05/11/2016 JESSICA [...] CARTILAGE DIS NOS 05/11/2016 CHERRI PENG S TRAILER ASSEMBLER Ot 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 05/11/2016 CHERRI PENG S TRAILER ASSEMBLER Ot 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 05/11/2016 AKASH GONZALES MD Ot 787.20 DYSPHAGIA, UNSPECIFIED 05/11/2016 AKASH GONZALES MD Ot V72.84 EXAM PRE-OPERATIVE NOS 05/11/2016 CHERRI PENG S TRAILER ASSEMBLER Ot C61 MALIGNANT NEOPLASM OF PROSTATE 05/11/2016 CHERRI PENG S TRAILER ASSEMBLER Ot C79.51 SECONDARY MALIGNANT NEOPLASM OF BONE 05/11/2016 CHERRI PENG S TRAILER ASSEMBLER Ot 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, UNSPECIFIED 05/11/2016 CHERRI PENG S TRAILER ASSEMBLER Ot R23.2 FLUSHING 05/11/2016 CHERRI PENG S TRAILER ASSEMBLER Ot Z79.899 OTHER CARE HOME (CURRENT) DRUG THERAPY 05/11/2016 JESSICA MATHIS N [...] 05/11/2016 JESSICA MATHIS N Ot Z79.899 OTHER CARE HOME (CURRENT) DRUG THERAPY 05/14/2016 CHERRI PENG S TRAILER ASSEMBLER Ot C61 MALIGNANT NEOPLASM OF PROSTATE 05/14/2016 PENGCHERRI S TRAILER ASSEMBLER Ot C79.51 SECONDARY MALIGNANT NEOPLASM OF BONE 05/14/2016 CHERRI PENG S TRAILER ASSEMBLER Ot Z79.899 OTHER SUPPLIER QUALITY MANAGER (CURRENT) DRUG THERAPY 05/29/2016 Ot 788.41 URINARY FREQUENCY 05/29/2016 Ot 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 05/29/2016 Ot V72.84 EXAM PRE-OPERATIVE NOS 05/29/2016 AKASH GONZALES MD Ot V72.84 EXAM PRE-OPERATIVE NOS 05/29/2016 CHRISTIAN JOYCE, AKASH Galeano Ot 154.1 MALIGNANT NEOPL RECTUM 05/29/2016 AKASH GONZALES MD Ot 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 05/29/2016 AKASH GONZALES MD Ot 562.10 DIVERTICULOSIS COLON (W/O MENT OF HEMORR 05/29/2016 AKASH GONZALES MD Ot V15.3 HX OF IRRADIATION 05/29/2016 DELBOBBI GALARZAAN N Ot 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 05/29/2016 DEL BOBAN N Ot 793.7 NOSP (ABN) FINDINGS ON RADIOLOGICAL OT 05/29/2016 VITOR PENGAH S TRAILER ASSEMBLER Ot 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 05/29/2016 DEL BOBAN N Ot 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 05/29/2016 DEL, BOBAN N Ot 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 05/29/2016 DEL BOBAN N Ot 781.91 LOSS OF HEIGHT 05/29/2016 DEL BOBAN N Ot 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 05/29/2016 DEL BOBAN N Ot 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 05/29/2016 DEL BOBAN N Ot 733.90 BONE CARTILAGE DIS NOS 05/29/2016 CHERRI PENG S TRAILER ASSEMBLER Ot 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 05/29/2016 PENG, HILAH S TRAILER ASSEMBLER Ot 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 05/29/2016 CHRISTIAN JOYCE, AKASH Galeano Ot 787.20 DYSPHAGIA, UNSPECIFIED 05/29/2016 AKASH GONZALES MD Ot V72.84 EXAM PRE-OPERATIVE NOS 05/29/2016 CHERRI PENG S TRAILER ASSEMBLER Ot C61 MALIGNANT NEOPLASM OF PROSTATE 05/29/2016 CHERRI PENG S TRAILER ASSEMBLER Ot C79.51 SECONDARY MALIGNANT NEOPLASM OF BONE 05/29/2016 CHERRI PENG S TRAILER ASSEMBLER Ot 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, UNSPECIFIED 05/29/2016 CHERRI PENG S TRAILER ASSEMBLER Ot R23.2 FLUSHING 05/29/2016 CHERRI PENG S TRAILER ASSEMBLER Ot Z79.899 OTHER CARE HOME (CURRENT) DRUG THERAPY 05/29/2016 DEL BOBAN N Ot C61 MALIGNANT NEOPLASM OF PROSTATE 05/29/2016 DEL, BOBAN N 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 05/29/2016 JESSICA MATHIS N Ot C79.51 SECONDARY MALIGNANT NEOPLASM OF BONE 05/29/2016 JESSICA MATHIS N Ot C61 MALIGNANT NEOPLASM OF PROSTATE 05/29/2016 JESSICA MATHIS N Ot C79.51 SECONDARY MALIGNANT NEOPLASM OF BONE 05/29/2016 JESSICA MATHIS N Ot Z79.899 OTHER CARE HOME (CURRENT) DRUG THERAPY 05/29/2016 CHERRI PENG S TRAILER ASSEMBLER Ot C61 MALIGNANT NEOPLASM OF PROSTATE 05/29/2016 CHERRI PENG S TRAILER ASSEMBLER Ot C79.51 SECONDARY MALIGNANT NEOPLASM OF BONE 05/29/2016 PENGCHERRI S TRAILER ASSEMBLER Ot Z79.899 OTHER SUPPLIER QUALITY MANAGER (CURRENT) DRUG THERAPY 06/05/2016 JESSICA MATHIS N Ot C61 MALIGNANT NEOPLASM OF PROSTATE 06/05/2016 JESSICA MATHIS N Ot C79.51 SECONDARY MALIGNANT NEOPLASM OF BONE 06/05/2016 JESSICA MATHIS N Ot Z79.899 OTHER CARE HOME (CURRENT) DRUG THERAPY 06/05/2016 Ot 788.41 URINARY [...] Galeano Ot V15.3 HX OF IRRADIATION 06/05/2016 DEL BOBAN N Ot 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 06/05/2016 DEL JESSICA N Ot 793.7 NOSP (ABN) FINDINGS ON RADIOLOGICAL OT 06/05/2016 CHERRI PENG S TRAILER ASSEMBLER Ot 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 06/05/2016 DEL BOBAN N Ot 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 06/05/2016 DEL BOBAN N Ot 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 06/05/2016 DEL BOBBIAN N Ot 781.91 LOSS OF HEIGHT 06/05/2016 DEL BOBAN N Ot 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 06/05/2016 JESSICA MATHIS N Ot 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 06/05/2016 DELJESSICA GALARZA N Ot 733.90 BONE CARTILAGE DIS NOS 06/05/2016 CHERRI PENG S TRAILER ASSEMBLER Ot 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 06/05/2016 CHERRI PENG S TRAILER ASSEMBLER Ot 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 06/05/2016 CHRISTIAN JOYCE, AKASH Galeano Ot 787.20 DYSPHAGIA, UNSPECIFIED 06/05/2016 AKASH GONZALES MD Ot V72.84 EXAM PRE-OPERATIVE NOS 06/05/2016 CHERRI PENG S TRAILER ASSEMBLER Ot C61 MALIGNANT NEOPLASM OF PROSTATE 06/05/2016 CHERRI PENG S TRAILER ASSEMBLER Ot C79.51 SECONDARY MALIGNANT NEOPLASM OF BONE 06/05/2016 CHERRI PENG TRAILER ASSEMBLER Ot 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, UNSPECIFIED 06/05/2016 CHERRI PENG S TRAILER ASSEMBLER Ot R23.2 FLUSHING 06/05/2016 CHERRI PENG S TRAILER ASSEMBLER Ot Z79.899 OTHER SUPPLIER QUALITY MANAGER (CURRENT) DRUG THERAPY 06/05/2016 DEL, BOBBILUZ N Ot C61 MALIGNANT NEOPLASM OF PROSTATE 06/05/2016 DEL, BOBBILUZ N 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 06/05/2016 DEL, BOBBILUZ N Ot C79.51 SECONDARY MALIGNANT NEOPLASM OF BONE 06/05/2016 DEL BOBBILUZ N Ot C61 MALIGNANT NEOPLASM OF PROSTATE 06/05/2016 DEL, BOBBILUZ N Ot C79.51 SECONDARY MALIGNANT NEOPLASM OF BONE 06/05/2016 DELJESSICA GALARZA N Ot Z79.899 OTHER CARE HOME (CURRENT) DRUG THERAPY 06/05/2016 CHERRI PENG S TRAILER ASSEMBLER Ot C61 MALIGNANT NEOPLASM OF PROSTATE 06/05/2016 CHERRI PENG S TRAILER ASSEMBLER Ot C79.51 SECONDARY MALIGNANT NEOPLASM OF BONE 06/05/2016 CHERRI PENG S TRAILER ASSEMBLER Ot Z79.899 OTHER SUPPLIER QUALITY MANAGER (CURRENT) DRUG THERAPY 06/05/2016 DEL JESSICA N Ot C61 MALIGNANT NEOPLASM OF PROSTATE 06/05/2016 DEL BOBBIAN N Ot C79.51 SECONDARY MALIGNANT NEOPLASM OF BONE 06/05/2016 DEL BOBBIAN N Ot Z79.899 OTHER CARE HOME (CURRENT) DRUG THERAPY 06/05/2016 JESSICA MATHIS N Ot C61 MALIGNANT NEOPLASM OF PROSTATE 06/05/2016 DELJESSICA GALARZA N Ot C79.51 SECONDARY MALIGNANT NEOPLASM OF BONE 06/05/2016 DELBOBBIAN N Ot Z79.899 OTHER SUPPLIER QUALITY MANAGER (CURRENT) DRUG THERAPY 06/06/2016 CHERRI PENG S TRAILER ASSEMBLER Ot C61 MALIGNANT NEOPLASM OF PROSTATE 06/06/2016 CHERRI PENG S TRAILER ASSEMBLER Ot C79.51 SECONDARY MALIGNANT NEOPLASM OF BONE 06/06/2016 CHERRI PENG S TRAILER ASSEMBLER Ot Z79.899 OTHER CARE HOME (CURRENT) DRUG THERAPY 06/15/2016 Ot 788.41 URINARY FREQUENCY 06/15/2016 Ot 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 06/15/2016 Ot V72.84 EXAM PRE-OPERATIVE NOS 06/15/2016 CHRISTIAN JOYCE, AKASH Galeano Ot V72.84 EXAM PRE-OPERATIVE NOS 06/15/2016 CHRISTIAN JOYCE, AKASH Galeano Ot 154.1 MALIGNANT NEOPL RECTUM 06/15/2016 AKASH GONZALES MD Ot 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 06/15/2016 CHRISTIAN JOYCE, AKASH Galeano Ot 562.10 DIVERTICULOSIS COLON (W/O MENT OF HEMORR 06/15/2016 CHRISTIAN JOYCE, AKASH Galeano Ot V15.3 HX OF IRRADIATION 06/15/2016 JESSICA MATHIS N Ot 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 06/15/2016 JESSICA MATHIS N Ot 793.7 NOSP (ABN) FINDINGS ON RADIOLOGICAL OT 06/15/2016 CHERRI PENG S TRAILER ASSEMBLER Ot 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 06/15/2016 BOBBI MATHISAN N Ot 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 06/15/2016 JESSICA MATHIS N Ot 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 06/15/2016 BOBBI MATHISAN N Ot 781.91 LOSS OF HEIGHT 06/15/2016 BOBBI MATHISAN N Ot 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 06/15/2016 BOBBI MATHISAN N Ot 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 06/15/2016 BOBBI MATHISAN N Ot 733.90 BONE CARTILAGE DIS NOS 06/15/2016 CHERRI PENG S TRAILER ASSEMBLER Ot 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 06/15/2016 CHERRI PENG S TRAILER ASSEMBLER Ot 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 06/15/2016 CHRISTIAN JOYCE, AKASH Galeano Ot 787.20 DYSPHAGIA, UNSPECIFIED 06/15/2016 CHRISTIAN JOYCE, AKASH Galeano Ot V72.84 EXAM PRE-OPERATIVE NOS 06/15/2016 CHERRI PENG TRAILER ASSEMBLER Ot C61 MALIGNANT NEOPLASM OF PROSTATE 06/15/2016 CHERRI PENG TRAILER ASSEMBLER Ot C79.51 SECONDARY MALIGNANT NEOPLASM OF BONE 06/15/2016 CHERRI PENG TRAILER ASSEMBLER Ot 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, UNSPECIFIED 06/15/2016 CHERRI PENG TRAILER ASSEMBLER Ot R23.2 FLUSHING 06/15/2016 CHERRI PENG TRAILER ASSEMBLER Ot Z79.899 OTHER CARE HOME (CURRENT) DRUG THERAPY 06/15/2016 JESSICA MATHIS N Ot C61 MALIGNANT NEOPLASM OF PROSTATE 06/15/2016 DEL JESSICA N 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 06/15/2016 JESSICA MATHIS N Ot C79.51 SECONDARY MALIGNANT NEOPLASM OF BONE 06/15/2016 JESSICA MATHIS N Ot C61 MALIGNANT NEOPLASM OF PROSTATE 06/15/2016 JESSICA MATHIS N Ot C79.51 SECONDARY MALIGNANT NEOPLASM OF BONE 06/15/2016 JESSICA MATHIS N Ot Z79.899 OTHER CARE HOME (CURRENT) DRUG THERAPY 06/15/2016 CHERRI PENG TRAILER ASSEMBLER Ot C61 MALIGNANT NEOPLASM OF PROSTATE 06/15/2016 CHERRI PENG TRAILER ASSEMBLER Ot C79.51 SECONDARY MALIGNANT NEOPLASM OF BONE 06/15/2016 CHERRI PENG TRAILER ASSEMBLER Ot Z79.899 OTHER SUPPLIER QUALITY MANAGER (CURRENT) DRUG THERAPY 07/23/2016 Ot 788.41 URINARY FREQUENCY 07/23/2016 Ot 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 07/23/2016 Ot V72.84 EXAM PRE-OPERATIVE NOS 07/23/2016 CHRISTIAN JOYCE, AKASH Galeano Ot V72.84 EXAM PRE-OPERATIVE NOS 07/23/2016 CHRISTIAN JOYCE, AKASH Galeano Ot 154.1 MALIGNANT NEOPL RECTUM 07/23/2016 AKASH GONZALES MD Ot 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 07/23/2016 CHRISTIAN JOYCE, AKASH Galeano Ot 562.10 DIVERTICULOSIS COLON (W/O MENT OF HEMORR 07/23/2016 AKASH GONZALES MD Ot V15.3 HX OF IRRADIATION 07/23/2016 JESSICA MATHIS N Ot 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 07/23/2016 JESSICA MATHIS N Ot 793.7 NOSP (ABN) FINDINGS ON RADIOLOGICAL OT 07/23/2016 CHERRI PENG S TRAILER ASSEMBLER Ot 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 07/23/2016 DEL BOBAN N Ot 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 07/23/2016 DEL BOBAN N Ot 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 07/23/2016 DELJESSICA GALARZA N Ot 781.91 LOSS OF HEIGHT 07/23/2016 DELBOBBI GALARZAAN N Ot 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 07/23/2016 DEL, BOBAN N Ot 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 07/23/2016 DELJESSICA GALARZA N Ot 733.90 BONE CARTILAGE DIS NOS 07/23/2016 CHERRI PENG S TRAILER ASSEMBLER Ot 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 07/23/2016 CHERRI PENG S TRAILER ASSEMBLER Ot 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 07/23/2016 CHRISTIAN JOYCE, AKASH Galeano Ot 787.20 DYSPHAGIA, UNSPECIFIED 07/23/2016 CHRISTIAN JOYCE, AKASH Galeano Ot V72.84 EXAM PRE-OPERATIVE NOS 07/23/2016 CHERRI PENG S TRAILER ASSEMBLER Ot C61 MALIGNANT NEOPLASM OF PROSTATE 07/23/2016 CHERRI PENG S TRAILER ASSEMBLER Ot C79.51 SECONDARY MALIGNANT NEOPLASM OF BONE 07/23/2016 CHERRI PENG S TRAILER ASSEMBLER Ot 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, UNSPECIFIED 07/23/2016 CHERRI PENG S TRAILER ASSEMBLER Ot R23.2 FLUSHING 07/23/2016 CHERRI PENG S TRAILER ASSEMBLER Ot Z79.899 OTHER CARE HOME (CURRENT) DRUG THERAPY 07/23/2016 DEL BOBLUZ N Ot C61 MALIGNANT NEOPLASM OF PROSTATE 07/23/2016 DELJESSICA N 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 07/23/2016 DEL BOBAN N Ot C79.51 SECONDARY MALIGNANT NEOPLASM OF BONE 07/23/2016 DEL BOBAN N Ot C61 MALIGNANT NEOPLASM OF PROSTATE 07/23/2016 DEL BOBAN N Ot C79.51 SECONDARY MALIGNANT NEOPLASM OF BONE 07/23/2016 DEL BOBAN N Ot Z79.899 OTHER SUPPLIER QUALITY MANAGER (CURRENT) DRUG THERAPY 07/23/2016 CHERRI PENG S TRAILER ASSEMBLER Ot C61 MALIGNANT NEOPLASM OF PROSTATE 07/23/2016 CHERRI PENG TRAILER ASSEMBLER Ot C79.51 SECONDARY MALIGNANT NEOPLASM OF BONE 07/23/2016 CHERRI PENG TRAILER ASSEMBLER Ot Z79.899 OTHER CARE HOME (CURRENT) DRUG THERAPY 07/23/2016 DEL BOBAN N Ot C61 MALIGNANT NEOPLASM OF PROSTATE 07/23/2016 DEL, BOBAN N Ot C79.51 SECONDARY MALIGNANT NEOPLASM OF BONE 07/23/2016 DEL BOBAN N Ot Z79.899 OTHER CARE HOME (CURRENT) DRUG THERAPY 08/24/2016 DEL BOBAN N Ot C61 MALIGNANT NEOPLASM OF PROSTATE 08/24/2016 DEL, BOBAN N Ot C79.51 SECONDARY MALIGNANT NEOPLASM OF BONE 08/24/2016 DEL BOBAN N Ot Z79.899 OTHER CARE HOME (CURRENT) DRUG THERAPY 09/14/2016 CHERRI PENG TRAILER ASSEMBLER Ot 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 09/14/2016 CHERRI PENG TRAILER ASSEMBLER Ot 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 10/11/2016 DEL BOBAN N Ot C61 MALIGNANT NEOPLASM OF PROSTATE 10/11/2016 DEL BOBAN N Ot C79.51 SECONDARY MALIGNANT NEOPLASM OF BONE 10/11/2016 DEL BOBAN N Ot Z79.899 OTHER SUPPLIER QUALITY MANAGER (CURRENT) DRUG THERAPY 10/24/2016 DEL, BOBLUZ N Ot C61 MALIGNANT NEOPLASM OF PROSTATE 10/24/2016 DEL BOBAN N Ot C79.51 SECONDARY MALIGNANT NEOPLASM OF BONE 10/24/2016 DEL BOBAN N Ot Z79.899 OTHER CARE HOME (CURRENT) DRUG THERAPY 11/21/2016 DEL, BOBAN N Ot C61 MALIGNANT NEOPLASM OF PROSTATE 11/21/2016 DEL, BOBAN N Ot C79.51 SECONDARY MALIGNANT NEOPLASM OF BONE 11/21/2016 DEL BOBAN N Ot Z79.899 OTHER SUPPLIER QUALITY MANAGER (CURRENT) DRUG THERAPY 11/22/2016 DEL, BOBAN N Ot C61 MALIGNANT NEOPLASM OF PROSTATE 11/22/2016 DEL, BOBAN N Ot C79.51 SECONDARY MALIGNANT NEOPLASM OF BONE 11/22/2016 DEL, BOBAN N Ot Z79.899 OTHER CARE HOME (CURRENT) DRUG THERAPY 02/20/2017 DEL, BOBAN N Ot C61 MALIGNANT NEOPLASM OF PROSTATE 02/20/2017 DEL, BOBAN N Ot C79.51 SECONDARY MALIGNANT NEOPLASM OF BONE 02/20/2017 JESSICA MATHIS N Ot Z79.899 OTHER CARE HOME (CURRENT) DRUG THERAPY 03/12/2017 JESSICA MATHIS N Ot C61 MALIGNANT NEOPLASM OF PROSTATE 03/12/2017 DEL BOBLUZ N Ot C79.51 SECONDARY MALIGNANT NEOPLASM OF BONE 03/12/2017 DELJESSICA GALARZA N Ot Z79.899 OTHER SUPPLIER QUALITY MANAGER (CURRENT) DRUG THERAPY 03/13/2017 JESSICA MATHIS N Ot C61 MALIGNANT NEOPLASM OF PROSTATE 03/13/2017 DELJESSICA N Ot C79.51 SECONDARY MALIGNANT NEOPLASM OF BONE 03/13/2017 DELJESSICA N Ot Z79.899 OTHER CARE HOME (CURRENT) DRUG THERAPY 03/14/2017 JESSICA MATHIS N Ot C61 MALIGNANT NEOPLASM OF PROSTATE 03/14/2017 JESSICA MATHIS N Ot C79.51 SECONDARY MALIGNANT NEOPLASM OF BONE 03/14/2017 DEL, BOBLUZ N Ot Z79.899 OTHER CARE HOME (CURRENT) DRUG THERAPY 03/14/2017 DELJESSICA GALARZA N Ot C61 MALIGNANT NEOPLASM OF PROSTATE 03/14/2017 DEL BOBLUZ N Ot C79.51 SECONDARY MALIGNANT NEOPLASM OF BONE 03/14/2017 JESSICA MATHIS N Ot Z79.899 OTHER SUPPLIER QUALITY MANAGER (CURRENT) DRUG THERAPY 03/19/2017 JESSICA MATHIS N Ot C61 MALIGNANT NEOPLASM OF PROSTATE 03/19/2017 DEL BOBLUZ N Ot C79.51 SECONDARY MALIGNANT NEOPLASM OF BONE 03/19/2017 JESSICA MATHIS N Ot Z79.899 OTHER CARE HOME (CURRENT) DRUG THERAPY 04/04/2017 HALIE LORENZO MD, Ot R42 DIZZINESS AND GIDDINESS 04/04/2017 HALIE LORENZO MD Ot Z85.46 PERSONAL HISTORY OF MALIGNANT NEOPLASM O 04/11/2017 Ot 185 MALIGN NEOPL PROSTATE 04/11/2017 Ot V72.84 EXAM PRE-OPERATIVE NOS 04/11/2017 CHRISTIAN JOYCE, AKASH Galeano Ot V72.84 EXAM PRE-OPERATIVE NOS 04/11/2017 CHRISTIAN JOYCE, AKASH Galeano Ot 154.1 MALIGNANT NEOPL RECTUM 04/11/2017 AKASH GONZALES MD Ot 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 04/11/2017 CHRISTIAN JOYCE, AKASH Galeano Ot 562.10 DIVERTICULOSIS COLON (W/O MENT OF HEMORR 04/11/2017 CHRISTIAN JOYCE, AKASH Glaeano Ot V15.3 HX OF IRRADIATION 04/11/2017 DEL JESSICA N Ot 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 04/11/2017 DEL BOBBIAN N Ot 793.7 NOSP (ABN) FINDINGS ON RADIOLOGICAL OT 04/11/2017 CHERRI PENG TRAILER ASSEMBLER Ot 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 04/11/2017 DEL JESSICA N Ot 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 04/11/2017 DEL BOBBIAN N Ot 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 04/11/2017 DEL BOBBIAN N Ot 781.91 LOSS OF HEIGHT 04/11/2017 DEL BOBBIAN N Ot 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 04/11/2017 DEL BOBAN N Ot 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 04/11/2017 DEL JESSICA N Ot 733.90 BONE CARTILAGE DIS NOS 04/11/2017 CHERRI PENG TRAILER ASSEMBLER Ot 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 04/11/2017 CHERRI PENG TRAILER ASSEMBLER Ot 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 04/11/2017 CHRISTIAN JOYCE, AKASH Galeano Ot 787.20 DYSPHAGIA, UNSPECIFIED 04/11/2017 AKASH GONZALES MD Ot V72.84 EXAM PRE-OPERATIVE NOS 04/11/2017 CHERRI PENG TRAILER ASSEMBLER Ot C61 MALIGNANT NEOPLASM OF PROSTATE 04/11/2017 CHERRI PENG TRAILER ASSEMBLER Ot C79.51 SECONDARY MALIGNANT NEOPLASM OF BONE 04/11/2017 CHERRI PENG TRAILER ASSEMBLER Ot 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, UNSPECIFIED 04/11/2017 CHERRI PENG TRAILER ASSEMBLER Ot R23.2 FLUSHING 04/11/2017 CHERRI PENG TRAILER ASSEMBLER Ot Z79.899 OTHER SUPPLIER QUALITY MANAGER (CURRENT) DRUG THERAPY 04/11/2017 JESSICA MATHIS N Ot C61 MALIGNANT NEOPLASM OF PROSTATE 04/11/2017 JESSICA MATHIS N 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 04/11/2017 JESSICA MATHIS N Ot C79.51 SECONDARY MALIGNANT NEOPLASM OF BONE 04/11/2017 CHERRI PENG TRAILER ASSEMBLER Ot C61 MALIGNANT NEOPLASM OF PROSTATE 04/11/2017 CHERRI PENG TRAILER ASSEMBLER Ot C79.51 SECONDARY MALIGNANT NEOPLASM OF BONE 04/11/2017 CHERRI PENG TRAILER ASSEMBLER Ot Z79.899 OTHER SUPPLIER QUALITY MANAGER (CURRENT) DRUG THERAPY 04/11/2017 DEL, BOBAN N Ot C61 MALIGNANT NEOPLASM OF PROSTATE 04/11/2017 DEL BOBAN N Ot C79.51 SECONDARY MALIGNANT NEOPLASM OF BONE 04/11/2017 DEL BOBAN N Ot Z79.899 OTHER SUPPLIER QUALITY MANAGER (CURRENT) DRUG THERAPY 04/12/2017 DEL, BOBAN N Ot C61 MALIGNANT NEOPLASM OF PROSTATE 04/12/2017 DEL BOBAN N Ot C79.51 SECONDARY MALIGNANT NEOPLASM OF BONE 04/12/2017 DEL BOBAN N Ot Z79.899 OTHER SUPPLIER QUALITY MANAGER (CURRENT) DRUG THERAPY 05/06/2017 DEL, BOBAN N Ot C61 MALIGNANT NEOPLASM OF PROSTATE 05/06/2017 DEL, BOBAN N Ot C79.51 SECONDARY MALIGNANT NEOPLASM OF BONE 05/06/2017 DEL BOBAN N Ot Z79.899 OTHER CARE HOME (CURRENT) DRUG THERAPY 06/26/2017 DEL, BOBAN N Ot C61 MALIGNANT NEOPLASM OF PROSTATE 06/26/2017 DEL, BOBAN N Ot C79.51 SECONDARY MALIGNANT NEOPLASM OF BONE 06/26/2017 DEL BOBAN N Ot Z79.899 OTHER SUPPLIER QUALITY MANAGER (CURRENT) DRUG THERAPY 07/10/2017 DEL, BOBAN N Ot C61 MALIGNANT NEOPLASM OF PROSTATE 07/10/2017 DEL, BOBAN N Ot C79.51 SECONDARY MALIGNANT NEOPLASM OF BONE 07/10/2017 DEL BOBAN N Ot Z79.899 OTHER CARE HOME (CURRENT) DRUG THERAPY 08/02/2017 DEL, BOBAN N Ot C61 MALIGNANT NEOPLASM OF PROSTATE 08/02/2017 DEL, BOBAN N Ot C79.51 SECONDARY MALIGNANT NEOPLASM OF BONE 08/02/2017 DEL, BOBAN N Ot Z79.899 OTHER SUPPLIER QUALITY MANAGER (CURRENT) DRUG THERAPY 09/06/2017 DEL, BOBAN N Ot C61 MALIGNANT NEOPLASM OF PROSTATE 09/06/2017 DEL, BOBAN N Ot C79.51 SECONDARY MALIGNANT NEOPLASM OF BONE 09/06/2017 DEL, BOBAN N Ot Z79.899 OTHER CARE HOME (CURRENT) DRUG THERAPY 09/30/2017 DEL, BOBAN N Ot C61 MALIGNANT NEOPLASM OF PROSTATE 09/30/2017 DEL, BOBAN N Ot C79.51 SECONDARY MALIGNANT NEOPLASM OF BONE 09/30/2017 JESSICA MATHIS N Ot Z79.899 OTHER CARE HOME (CURRENT) DRUG THERAPY 10/30/2017 JESSICA MATHIS N Ot C61 MALIGNANT NEOPLASM OF PROSTATE 10/30/2017 DEL BOBAN N Ot C79.51 SECONDARY MALIGNANT NEOPLASM OF BONE 10/30/2017 JESSICA MATHIS N Ot Z79.899 OTHER SUPPLIER QUALITY MANAGER (CURRENT) DRUG THERAPY 10/31/2017 JESSICA MATHIS N Ot C61 MALIGNANT NEOPLASM OF PROSTATE 10/31/2017 DEL BOBAN N Ot C79.51 SECONDARY MALIGNANT NEOPLASM OF BONE 10/31/2017 JESSICA MATHIS N Ot Z79.899 OTHER SUPPLIER QUALITY MANAGER (CURRENT) DRUG THERAPY 11/21/2017 Ot 185 MALIGN NEOPL PROSTATE 11/21/2017 Ot V72.84 EXAM PRE-OPERATIVE NOS 11/21/2017 CHRISTIAN [...] NEOPL PROSTATE 11/21/2017 DEL BOBAN N Ot 793.7 NOSP (ABN) FINDINGS ON RADIOLOGICAL OT 11/21/2017 CHERRI PENG TRAILER ASSEMBLER Ot 185 MALIGN NEOPL PROSTATE 11/21/2017 DEL, BOBAN N Ot 185 MALIGN NEOPL PROSTATE 11/21/2017 DEL, BOBAN N Ot 198.5 SECONDARY MALIG KARAN BONE 11/21/2017 DEL, BOBAN N Ot 781.91 LOSS OF HEIGHT 11/21/2017 DEL, BOBAN N Ot 185 MALIGN NEOPL PROSTATE 11/21/2017 DEL, BOBAN N Ot 198.5 SECONDARY MALIG KARAN BONE 11/21/2017 DEL, BOBAN N Ot 733.90 BONE CARTILAGE DIS NOS 11/21/2017 CHERRI PENG TRAILER ASSEMBLER Ot 185 MALIGN NEOPL PROSTATE 11/21/2017 PENG, HILAH S TRAILER ASSEMBLER Ot 198.5 SECONDARY MALIG KARAN BONE 11/21/2017 CHRISTIAN JOYCE, AKASH Galeano Ot 787.20 DYSPHAGIA, UNSPECIFIED 11/21/2017 CHRISTIAN JOYCE, AKASH Galeano Ot V72.84 EXAM PRE-OPERATIVE NOS 11/21/2017 CHERRI PENG S TRAILER ASSEMBLER Ot C61 MALIGNANT NEOPLASM OF PROSTATE 11/21/2017 CHERRI PENG S TRAILER ASSEMBLER Ot C79.51 SECONDARY MALIGNANT NEOPLASM OF BONE 11/21/2017 CHERRI PENG S TRAILER ASSEMBLER Ot 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, UNSPECIFIED 11/21/2017 CHERRI PENG S TRAILER ASSEMBLER Ot R23.2 FLUSHING 11/21/2017 PENGCHERRI Fernandez S TRAILER ASSEMBLER Ot Z79.899 OTHER SUPPLIER QUALITY MANAGER (CURRENT) DRUG THERAPY 11/21/2017 DEL, BOBAN N Ot C61 MALIGNANT NEOPLASM OF PROSTATE 11/21/2017 DEL, BOBAN N 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 11/21/2017 DEL, BOBAN N Ot C79.51 SECONDARY MALIGNANT NEOPLASM OF BONE 11/21/2017 CHERRI PENG S TRAILER ASSEMBLER Ot C61 MALIGNANT NEOPLASM OF PROSTATE 11/21/2017 PENGCHERRI S TRAILER ASSEMBLER Ot C79.51 SECONDARY MALIGNANT NEOPLASM OF BONE 11/21/2017 PENGCHERRI S TRAILER ASSEMBLER Ot Z79.899 OTHER SUPPLIER QUALITY MANAGER (CURRENT) DRUG THERAPY 01/03/2018 DEL, BOBAN N Ot C61 MALIGNANT NEOPLASM OF PROSTATE 01/03/2018 DEL, BOBAN N Ot C79.51 SECONDARY MALIGNANT NEOPLASM OF BONE 01/03/2018 DEL BOBAN N Ot Z79.899 OTHER CARE HOME (CURRENT) DRUG THERAPY 01/29/2018 DEL, BOBAN N Ot C61 MALIGNANT NEOPLASM OF PROSTATE 01/29/2018 DEL, BOBAN N Ot C79.51 SECONDARY MALIGNANT NEOPLASM OF BONE 01/29/2018 DEL, BOBAN N Ot Z79.899 OTHER SUPPLIER QUALITY MANAGER (CURRENT) DRUG THERAPY 02/19/2018 DEL, BOBAN N Ot C61 MALIGNANT NEOPLASM OF PROSTATE 02/19/2018 DEL, BOBAN N Ot C79.51 SECONDARY MALIGNANT NEOPLASM OF BONE 02/19/2018 DEL, BOBAN N Ot Z79.899 OTHER SUPPLIER QUALITY MANAGER (CURRENT) DRUG THERAPY 02/20/2018 DEL, BOBAN N Ot C61 MALIGNANT NEOPLASM OF PROSTATE 02/20/2018 DEL, BOBAN N Ot C79.51 SECONDARY MALIGNANT NEOPLASM OF BONE 02/20/2018 DEL, BOBAN N Ot Z79.899 OTHER CARE HOME (CURRENT) DRUG THERAPY 03/17/2018 DEL, BOBAN N Ot C61 MALIGNANT NEOPLASM OF PROSTATE 03/17/2018 DEL, BOBAN N Ot C79.51 SECONDARY MALIGNANT NEOPLASM OF BONE 03/17/2018 DEL, BOBAN N Ot Z79.899 OTHER CARE HOME (CURRENT) DRUG THERAPY 04/04/2018 DEL, BOBAN N Ot C61 MALIGNANT NEOPLASM OF PROSTATE 04/04/2018 DEL, BOBAN N Ot C79.51 SECONDARY MALIGNANT NEOPLASM OF BONE 04/04/2018 DEL, BOBAN N Ot Z79.899 OTHER SUPPLIER QUALITY MANAGER (CURRENT) DRUG THERAPY 06/11/2018 DEL, BOBAN N Ot C61 MALIGNANT NEOPLASM OF PROSTATE 06/11/2018 DEL, BOBAN N Ot C79.51 SECONDARY MALIGNANT NEOPLASM OF BONE 06/11/2018 DEL, BOBAN N Ot Z79.899 OTHER SUPPLIER QUALITY MANAGER (CURRENT) DRUG THERAPY 06/26/2018 DEL, BOBAN N Ot C61 MALIGNANT NEOPLASM OF PROSTATE 06/26/2018 DEL, BOBAN N Ot C79.51 SECONDARY MALIGNANT NEOPLASM OF BONE 06/26/2018 DEL, BOBAN N Ot Z79.899 OTHER CARE HOME (CURRENT) DRUG THERAPY 06/27/2018 DEL, BOBAN N Ot C61 MALIGNANT NEOPLASM OF PROSTATE 06/27/2018 DEL, BOBAN N Ot C79.51 SECONDARY MALIGNANT NEOPLASM OF BONE 06/27/2018 DEL, BOBAN N Ot Z79.899 OTHER CARE HOME (CURRENT) DRUG THERAPY 07/02/2018 DEL, BOBAN N Ot C61 MALIGNANT NEOPLASM OF PROSTATE 07/02/2018 DEL, BOBAN N Ot C79.51 SECONDARY MALIGNANT NEOPLASM OF BONE 07/02/2018 DEL, BOBAN N Ot Z79.899 OTHER CARE HOME (CURRENT) DRUG THERAPY 07/02/2018 CHRISTIAN JOYCE, AKASH Galeano Ot V72.84 EXAM PRE-OPERATIVE NOS 07/02/2018 AKASH GONZALES MD, Ot 154.1 MALIGNANT NEOPL RECTUM 07/02/2018 AKASH GONZALES MD, Ot 185 MALIGN NEOPL PROSTATE 07/02/2018 GONZALES MD, AKASH D Ot 562.10 DIVERTICULOSIS COLON (W/O MENT OF HEMORR 07/02/2018 CHRISTIAN JOYCE, AKASH Galeano Ot V15.3 HX OF IRRADIATION 07/02/2018 DEL, BOBAN N Ot 185 MALIGN NEOPL PROSTATE 07/02/2018 DEL, BOBAN N Ot 793.7 NOSP (ABN) FINDINGS ON RADIOLOGICAL OT 07/02/2018 CHERRI PENG S TRAILER ASSEMBLER Ot 185 MALIGN NEOPL PROSTATE 07/02/2018 DEL, BOBAN N Ot 185 MALIGN NEOPL PROSTATE 07/02/2018 DEL, BOBAN N Ot 198.5 SECONDARY MALIG KARAN BONE 07/02/2018 DEL, BOBAN N Ot 781.91 LOSS OF HEIGHT 07/02/2018 DEL, BOBAN N Ot 185 MALIGN NEOPL PROSTATE 07/02/2018 DEL, BOBAN N Ot 198.5 SECONDARY MALIG KARAN BONE 07/02/2018 DEL, BOBAN N Ot 733.90 BONE CARTILAGE DIS NOS 07/02/2018 CHERRI PENG TRAILER ASSEMBLER Ot 185 MALIGN NEOPL PROSTATE 07/02/2018 CHERRI PENG S TRAILER ASSEMBLER Ot 198.5 SECONDARY MALIG KARAN BONE 07/02/2018 CHRISTIAN JOYCE, AKASH Galeano Ot 787.20 DYSPHAGIA, UNSPECIFIED 07/02/2018 CHRISTIAN JOYCE, AKASH Galeano Ot V72.84 EXAM PRE-OPERATIVE NOS 07/02/2018 CHERRI PENG TRAILER ASSEMBLER Ot C61 MALIGNANT NEOPLASM OF PROSTATE 07/02/2018 CHERRI PENG TRAILER ASSEMBLER Ot C79.51 SECONDARY MALIGNANT NEOPLASM OF BONE 07/02/2018 CHERRI PENG TRAILER ASSEMBLER Ot 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, UNSPECIFIED 07/02/2018 CHERRI PENG TRAILER ASSEMBLER Ot R23.2 FLUSHING 07/02/2018 CHERRI PENG TRAILER ASSEMBLER Ot Z79.899 OTHER SUPPLIER QUALITY MANAGER (CURRENT) DRUG THERAPY 07/02/2018 JESSICA MATHIS N Ot C61 MALIGNANT NEOPLASM OF PROSTATE 07/02/2018 DELJESSICA GALARZA N 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 07/02/2018 DELBOBBI GALARZAAN N Ot C79.51 SECONDARY MALIGNANT NEOPLASM OF BONE 07/02/2018 CHERRI PENG TRAILER ASSEMBLER Ot C61 MALIGNANT NEOPLASM OF PROSTATE 07/02/2018 CHERRI PENG TRAILER ASSEMBLER Ot C79.51 SECONDARY MALIGNANT NEOPLASM OF BONE 07/02/2018 CHERRI PENG TRAILER ASSEMBLER Ot Z79.899 OTHER CARE HOME (CURRENT) DRUG THERAPY 07/02/2018 BALDO WHEELER DC [...] 07/15/2018 AMOL PIERSON MD Ot Z79.899 OTHER SUPPLIER QUALITY MANAGER (CURRENT) DRUG THERAPY 07/23/2018 BALDO WHEELER DC [...] NEOPLASM OF BONE 08/04/2018 BALDO WHEELER DC Ot 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 OR RADICULOPA 08/04/2018 BALDO WHEELER DC Ot M47.816 SPONDYLOSIS W/O [...] SEGMENTAL AND SOMATIC DYSFUNCTION OF LUM 08/05/2018 AKASH GONZALES MD Ot V72.84 EXAM PRE-OPERATIVE NOS 08/05/2018 AKASH [...] NOSP (ABN) FINDINGS ON RADIOLOGICAL OT 08/05/2018 PENG, HILAH S TRAILER ASSEMBLER Ot 185 MALIGN NEOPL PROSTATE 08/05/2018 JESSICA MATHIS N Ot 185 MALIGN NEOPL PROSTATE 08/05/2018 JESSICA MATHIS N Ot 198.5 SECONDARY MALIG KARAN BONE 08/05/2018 JESSICA MATHIS N Ot 781.91 LOSS OF HEIGHT 08/05/2018 JESSICA MATHIS N Ot 185 MALIGN NEOPL PROSTATE 08/05/2018 JESSICA MATHIS N Ot 198.5 SECONDARY MALIG KARAN BONE 08/05/2018 JESSICA MATHIS N Ot 733.90 BONE CARTILAGE DIS NOS 08/05/2018 CHERRI PENG S TRAILER ASSEMBLER Ot 185 MALIGN NEOPL PROSTATE 08/05/2018 CHERRI PENG S TRAILER ASSEMBLER Ot 198.5 SECONDARY MALIG KARAN BONE 08/05/2018 CHRISTIAN JOYCE, AKASH Galeano Ot 787.20 DYSPHAGIA, UNSPECIFIED 08/05/2018 AKASH GONZALES MD Ot V72.84 EXAM PRE-OPERATIVE NOS 08/05/2018 CHERRI PENG S TRAILER ASSEMBLER Ot C61 MALIGNANT NEOPLASM OF PROSTATE 08/05/2018 CHERRI PENG S TRAILER ASSEMBLER Ot C79.51 SECONDARY MALIGNANT NEOPLASM OF BONE 08/05/2018 CHERRI PENG TRAILER ASSEMBLER Ot 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, UNSPECIFIED 08/05/2018 CHERRI PENG S TRAILER ASSEMBLER Ot R23.2 FLUSHING 08/05/2018 CHERRI PENG S TRAILER ASSEMBLER Ot Z79.899 OTHER SUPPLIER QUALITY MANAGER (CURRENT) DRUG THERAPY 08/05/2018 DEL, BOBBILUZ N Ot C61 MALIGNANT NEOPLASM OF PROSTATE 08/05/2018 JESSICA MATHIS N 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 08/05/2018 DEL BOBBILUZ N Ot C79.51 SECONDARY MALIGNANT NEOPLASM OF BONE 08/05/2018 CHERRI PENG S TRAILER ASSEMBLER Ot C61 MALIGNANT NEOPLASM OF PROSTATE 08/05/2018 CHERRI PENG S TRAILER ASSEMBLER Ot C79.51 SECONDARY MALIGNANT NEOPLASM OF BONE 08/05/2018 CHERRI PENG S TRAILER ASSEMBLER Ot Z79.899 OTHER CARE HOME (CURRENT) DRUG THERAPY 08/05/2018 BALDO WHEELER DC Ot 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 OR RADICULOPA 08/05/2018 BALDO WHEELER DC Ot M47.816 SPONDYLOSIS W/O MYELOPATHY OR RADICULOPA 08/05/2018 LIAM SANTANA, BALDO J Ot 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9 HEMATURIA, UNSPECIFIED 08/22/2018 AKASH GONZALES MD Ot R82.90 UNSPECIFIED ABNORMAL FINDINGS IN URINE 09/08/2018 JESSICA MATHIS N Ot C61 MALIGNANT NEOPLASM OF PROSTATE 09/08/2018 JESSICA MAHTIS N 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 09/08/2018 JESSICA MATHIS N Ot C79.51 SECONDARY MALIGNANT NEOPLASM OF BONE 09/11/2018 AKASH GONZALES MD Ot R31.9 HEMATURIA, UNSPECIFIED 09/11/2018 AKASH GONZALES MD Ot R82.90 UNSPECIFIED ABNORMAL FINDINGS IN URINE 09/22/2018 AKASH GONZALES MD Ot C61 MALIGNANT NEOPLASM OF PROSTATE 09/22/2018 AKASH GONZALES MD Ot C78.00 SECONDARY MALIGNANT NEOPLASM OF UNSPECIF 09/22/2018 CHRISTIAN JOYCE, AKASH Galeano Ot I67.82 CEREBRAL ISCHEMIA 09/22/2018 CHRISTIAN JOYCE, AKASH Galeano Ot R51 HEADACHE 10/02/2018 DELJESSICA Ot C61 MALIGNANT NEOPLASM OF PROSTATE 10/02/2018 DELJESSICA N 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 10/02/2018 DELJESSICA N Ot C79.51 SECONDARY MALIGNANT NEOPLASM OF BONE 10/20/2018 DELJESSICA N Ot C61 MALIGNANT NEOPLASM OF PROSTATE 10/20/2018 DELJESSICA N 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 10/20/2018 DELJESSICA N Ot C79.51 SECONDARY MALIGNANT NEOPLASM OF BONE 10/21/2018 DELJESSICA Ot C61 MALIGNANT NEOPLASM OF PROSTATE 10/21/2018 DELJESSICA 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 10/21/2018 JESSICA MATHIS Ot C79.51 SECONDARY MALIGNANT NEOPLASM [...] 10/23/2018 HALIE LORENZO MD Ot Z79.899 OTHER SUPPLIER QUALITY MANAGER (CURRENT) DRUG THERAPY 10/23/2018 HALIE LORENZO MD Ot Z91.81 HISTORY OF FALLING 10/23/2018 HALIE LORENZO MD Ot Z92.3 PERSONAL HISTORY OF IRRADIATION 2018 NOEL HARO BRAYDEN Ot C61 MALIGNANT NEOPLASM OF PROSTATE 2018 COHENAARTI HARO BRAYDEN Ot 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 2018 DIONE COHEN DOI 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 2018 COHEN DO, BRAYDEN Ot 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 2018 COHEN DO, BRAYDEN Ot K22.10 ULCER OF ESOPHAGUS WITHOUT BLEEDING 2018 COHEN DO, BRAYDEN Ot K22.2 ESOPHAGEAL OBSTRUCTION 2018 COHEN DO, BRAYDEN Ot K29.70 GASTRITIS, UNSPECIFIED, WITHOUT BLEEDING 2018 COHEN DO, BRAYDEN Ot K29.80 DUODENITIS WITHOUT BLEEDING 2018 COHEN DO BRAYDEN Ot K59.03 DRUG INDUCED CONSTIPATION 2018 COHEN DO, BRAYDEN Ot M48.061 SPINAL STENOSIS, LUMBAR REGION WITHOUT N 2018 COHEN DO BRAYDEN Ot M51.36 OTHER INTERVERTEBRAL DISC DEGENERATION, 2018 COHEN DO, BRAYDEN Ot R13.14 DYSPHAGIA, PHARYNGOESOPHAGEAL PHASE 2018 COHEN DO BRAYDEN Ot R26.81 UNSTEADINESS ON FEET 2018 COHEN DO BRAYDEN Ot R29.6 REPEATED FALLS 2018 COHEN DO BRAYDEN Ot R29.898 OTH SYMPTOMS AND SIGNS INVOLVING THE MUS 2018 COHEN DO, BRAYDEN Ot R31.0 GROSS HEMATURIA 2018 NOEL HARO BRAYDEN Ot R33.9 RETENTION OF URINE, UNSPECIFIED 2018 COHEN DO BRAYDEN Ot R41.0 DISORIENTATION, UNSPECIFIED 2018 COHEN DO BRAYDEN Ot R42 DIZZINESS AND GIDDINESS 10/30/2018 EDGARDO BURNS DO B Ot C61 MALIGNANT NEOPLASM OF PROSTATE 10/30/2018 ABDULLAHI BURNS DOIC B Ot 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 10/30/2018 ABDULLAHI BURNS DOIC B Ot K21.9 GASTRO-ESOPHAGEAL REFLUX DISEASE WITHOUT 10/30/2018 ABDULLAHI BURNS DOIC B Ot K22.10 ULCER OF ESOPHAGUS WITHOUT BLEEDING 10/30/2018 ABDULLAHI BURNS DOIC B Ot K26.9 DUODENAL ULCER, UNSP ACUTE OR CHRONIC 10/30/2018 ABDULLAHI BURNS DOIC B Ot K29.50 UNSPECIFIED CHRONIC GASTRITIS WITHOUT BL 10/30/2018 ABDULLAHI BURNS DOIC B Ot K29.80 DUODENITIS WITHOUT BLEEDING 10/30/2018 DELJAYDA DO, EDGARDO B Ot K44.9 DIAPHRAGMATIC HERNIA WITHOUT OBSTRUCTION 10/30/2018 GRANT DO, EDGARDO B Ot Z79.82 SUPPLIER QUALITY MANAGER (CURRENT) USE OF ASPIRIN 10/30/2018 GRANT DO, EDGARDO B Ot Z79.899 OTHER CARE HOME (CURRENT) DRUG THERAPY 10/30/2018 DELJAYDA DO, EDGARDO B Ot Z87.891 PERSONAL HISTORY OF NICOTINE DEPENDENCE 11/05/2018 QAMARMAN DO, EDGARDO B Ot C61 MALIGNANT [...] K29.50 UNSPECIFIED CHRONIC GASTRITIS WITHOUT BL 11/05/2018 QAMARMAN DO, EDGARDO B Ot K29.80 DUODENITIS WITHOUT BLEEDING 11/05/2018 DELJAYDA DO, EDGARDO B Ot K44.9 DIAPHRAGMATIC HERNIA WITHOUT OBSTRUCTION 11/05/2018 QAMARJAYDA DO, EDGARDO B Ot Z79.82 CARE HOME (CURRENT) USE OF ASPIRIN 11/05/2018 QAMARJAYDA DO, EDGARDO B Ot Z79.899 OTHER CARE HOME (CURRENT) DRUG THERAPY 11/05/2018 GRANT DO, EDGARDO B Ot Z87.891 PERSONAL HISTORY [...] K29.50 UNSPECIFIED CHRONIC GASTRITIS WITHOUT BL 11/17/2018 QAMARMAN DO, EDGARDO B Ot K29.80 DUODENITIS WITHOUT BLEEDING 11/17/2018 DELMAN DO, EDGARDO B Ot K44.9 DIAPHRAGMATIC HERNIA WITHOUT OBSTRUCTION 11/17/2018 DELMAN DO, EDGARDO B Ot Z79.82 CARE HOME (CURRENT) USE OF ASPIRIN 11/17/2018 DELMAN DO, EDGARDO B Ot Z79.899 OTHER CARE HOME (CURRENT) DRUG THERAPY 11/17/2018 DELMAN DO, EDGARDO [...] Ot M48.00 SPINAL STENOSIS, SITE UNSPECIFIED 11/25/2018 CHRISTIAN JOYCE, AKASH Galeano Ot R53.81 OTHER [...] 12/09/2018 DELMAN DO, EDGARDO B Ot Z79.82 CARE HOME (CURRENT) USE OF ASPIRIN 12/09/2018 DELMAN DO, EDGARDO B Ot Z79.899 OTHER CARE HOME (CURRENT) DRUG THERAPY 12/09/2018 DELMAN DO, EDGARDO [...] (CURRENT) USE OF ASPIRIN 01/02/2019 JESSICA MATHIS Ot Z79.899 OTHER CARE HOME (CURRENT) DRUG THERAPY 01/02/2019 CHRISTIAN JOYCE, AKASH Galeano Ot C61 MALIGNANT NEOPLASM OF PROSTATE 01/02/2019 CHRISTIAN JOYCE, AKASH Galeano Ot M48.00 SPINAL STENOSIS, SITE UNSPECIFIED 01/02/2019 AKASH GONZALES MD Ot R53.81 OTHER MALAISE 01/05/2019 CHERRI PENG TRAILER ASSEMBLER Ot C61 MALIGNANT NEOPLASM OF PROSTATE 01/05/2019 CHERRI PENG TRAILER ASSEMBLER 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 01/05/2019 CHERRI PENG S TRAILER ASSEMBLER Ot C79.51 SECONDARY MALIGNANT NEOPLASM OF BONE 01/05/2019 CHERRI PENG TRAILER ASSEMBLER Ot N13.30 UNSPECIFIED HYDRONEPHROSIS 01/05/2019 CHERRI PENG TRAILER ASSEMBLER Ot N32.89 OTHER SPECIFIED DISORDERS OF BLADDER 01/05/2019 CHERRI PENG TRAILER ASSEMBLER Ot R91.8 OTHER NONSPECIFIC ABNORMAL FINDING OF CARLITO 01/07/2019 MAYUR RODRIGUEZ MD Ot N28.89 OTHER SPECIFIED DISORDERS OF KIDNEY AND 01/07/2019 MAYUR RODRIGUEZ MD Ot R31.21 ASYMPTOMATIC MICROSCOPIC HEMATURIA 01/07/2019 MAYUR RODRIGUEZ MD Ot R42 DIZZINESS AND GIDDINESS 01/07/2019 MAYUR RODRIGUEZ MD Ot W01.198A FALL SAME LEV FROM SLIP/TRIP W STRIKE AG 01/07/2019 MAYUR RODRIGUEZ MD Ot Z79.02 SUPPLIER QUALITY MANAGER (CURRENT) USE OF ANTITHROMBOTI 01/07/2019 MAYUR RODRIGUEZ MD Ot Z79.82 CARE HOME (CURRENT) USE OF ASPIRIN 01/07/2019 MAYUR RODRIGUEZ MD Ot Z85.46 PERSONAL HISTORY OF MALIGNANT NEOPLASM O 01/07/2019 MAYUR RODRIGUEZ MD, Ot Z87.891 PERSONAL HISTORY OF NICOTINE DEPENDENCE 01/07/2019 MAYUR RODRIGUEZ MD Ot Z88.8 ALLERGY STATUS TO OTH DRUG/MEDS/BIOL SUB 01/09/2019 MAYUR RODRIGUEZ MD Ot N28.89 OTHER SPECIFIED DISORDERS OF KIDNEY AND 01/09/2019 MAYUR RODRIGUEZ MD Ot R31.21 ASYMPTOMATIC MICROSCOPIC HEMATURIA 01/09/2019 MAYUR RODRIGUEZ MD Ot R42 DIZZINESS AND GIDDINESS 01/09/2019 MAYUR RODRIGUEZ MD Ot W01.198A FALL SAME LEV FROM SLIP/TRIP W STRIKE AG 01/09/2019 MAYUR RODRIGUEZ MD Ot Z79.02 SUPPLIER QUALITY MANAGER (CURRENT) USE OF ANTITHROMBOTI 01/09/2019 MAYUR RODRIGUEZ MD Ot Z79.82 CARE HOME (CURRENT) USE OF ASPIRIN 01/09/2019 MAYUR RODRIGUEZ MD Ot Z85.46 PERSONAL HISTORY OF MALIGNANT NEOPLASM O 01/09/2019 MAYUR RODRIGUEZ MD Ot Z87.891 PERSONAL HISTORY OF NICOTINE DEPENDENCE 01/09/2019 MAYUR RODRIGUEZ MD Ot Z88.8 ALLERGY STATUS TO OTH DRUG/MEDS/BIOL SUB 01/20/2019 AKASH GONZALES MD Ot C61 MALIGNANT NEOPLASM OF PROSTATE 01/20/2019 AKASH GONZALES MD Ot M48.00 SPINAL STENOSIS, SITE UNSPECIFIED 01/20/2019 AKASH GONZALES MD Ot R53.81 OTHER MALAISE 01/22/2019 CHERRI PENG TRAILER ASSEMBLER Ot C61 MALIGNANT NEOPLASM OF PROSTATE 01/22/2019 CHERRI PENG TRAILER ASSEMBLER 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 01/22/2019 CHERRI PENG TRAILER ASSEMBLER Ot C79.51 SECONDARY MALIGNANT NEOPLASM OF BONE 01/22/2019 CHERRI PENG TRAILER ASSEMBLER Ot N13.30 UNSPECIFIED HYDRONEPHROSIS 01/22/2019 CHERRI PENG TRAILER ASSEMBLER Ot N32.89 OTHER SPECIFIED DISORDERS OF BLADDER 01/22/2019 CHERRI PENG TRAILER ASSEMBLER Ot R91.8 OTHER NONSPECIFIC ABNORMAL FINDING OF CARLITO 01/25/2019 CAMELIA GROVES Ot T83.092A [facility] COMPL OF NEPHROSTOMY CATHETER, INIT 01/25/2019 BERNOT, CAMELIA Ot Z79.82 CARE HOME (CURRENT) USE OF ASPIRIN 01/25/2019 BERNOT, CAMELIA Ot Z85.46 PERSONAL HISTORY OF MALIGNANT NEOPLASM O 01/25/2019 BERNOT, CAMELIA Ot Z87.891 PERSONAL HISTORY OF NICOTINE DEPENDENCE 01/25/2019 BERNOT, CAMELIA Ot Z88.8 ALLERGY STATUS TO OTH DRUG/MEDS/BIOL SUB 01/25/2019 BERNOT, CAMELIA Ot Z92.21 PERSONAL HISTORY OF ANTINEOPLASTIC CHEMO 01/25/2019 BERNOT CAMELIA Ot Z98.890 OTHER SPECIFIED POSTPROCEDURAL STATES 01/27/2019 BERNOT CAMELIA Ot T83.092A [facility] COMPL OF NEPHROSTOMY CATHETER, INIT 01/27/2019 BERNOT, CAMELIA Ot Z79.82 SUPPLIER QUALITY MANAGER (CURRENT) USE OF ASPIRIN 01/27/2019 BERNOT, CAMELIA Ot Z85.46 PERSONAL HISTORY OF MALIGNANT NEOPLASM O 01/27/2019 BERNOT, CAMELIA Ot Z87.891 PERSONAL HISTORY OF NICOTINE DEPENDENCE 01/27/2019 BERNOT, CAMELIA Ot Z88.8 ALLERGY STATUS TO OTH DRUG/MEDS/BIOL SUB 01/27/2019 BERNOT, CAMELIA Ot Z92.21 PERSONAL HISTORY OF ANTINEOPLASTIC CHEMO 01/27/2019 BERNOT, CAMELIA Ot Z98.890 OTHER SPECIFIED POSTPROCEDURAL STATES 01/31/2019 BERNOT, CAMELIA Ot T83.092A [facility] COMPL OF NEPHROSTOMY CATHETER, INIT 01/31/2019 BERNOT, CAMELIA Ot Z79.82 SUPPLIER QUALITY MANAGER (CURRENT) USE OF ASPIRIN 01/31/2019 BERNOT, CAMELIA Ot Z85.46 PERSONAL HISTORY OF MALIGNANT NEOPLASM O 01/31/2019 BERNOT, CAMELIA Ot Z87.891 PERSONAL HISTORY OF NICOTINE DEPENDENCE 01/31/2019 BERNOT, CAMELIA Ot Z88.8 ALLERGY STATUS TO OTH DRUG/MEDS/BIOL SUB 01/31/2019 BERNOT, CAMELIA Ot Z92.21 PERSONAL HISTORY OF ANTINEOPLASTIC CHEMO 01/31/2019 BERNOT, CAMELIA Ot Z98.890 OTHER SPECIFIED POSTPROCEDURAL STATES 02/06/2019 CHRISTIAN JOYCE, AKASH Galeano Ot C61 MALIGNANT NEOPLASM OF PROSTATE 02/06/2019 CHRISTIAN JOYCE, AKASH Galeano Ot M48.00 SPINAL STENOSIS, SITE UNSPECIFIED 02/06/2019 CHRISTIAN JOYCE, AKASH Galeano Ot R53.81 OTHER MALAISE 02/16/2019 JESSICA MATHIS N Ot C61 MALIGNANT NEOPLASM OF PROSTATE 02/16/2019 JESSICA MATHIS N 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 02/16/2019 JESSICA MATHIS N Ot 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 02/16/2019 JESSICA MATHIS N Ot C79.51 SECONDARY MALIGNANT NEOPLASM OF BONE 02/16/2019 JESSICA MATHIS N Ot 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, UNSPECIFIED 02/16/2019 JESSICA MATHIS N Ot Z79.82 SUPPLIER QUALITY MANAGER (CURRENT) USE OF ASPIRIN 02/16/2019 JESSICA MATHIS N Ot Z79.899 OTHER CARE HOME (CURRENT) DRUG THERAPY 02/16/2019 CHERRI PENG TRAILER ASSEMBLER Ot C61 MALIGNANT NEOPLASM OF PROSTATE 02/16/2019 CHERRI PENG TRAILER ASSEMBLER 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 02/16/2019 CHERRI PENG TRAILER ASSEMBLER Ot C79.51 SECONDARY MALIGNANT NEOPLASM OF BONE 02/16/2019 CHERRI PENG TRAILER ASSEMBLER Ot N13.30 UNSPECIFIED HYDRONEPHROSIS 02/16/2019 CHERRI PENG S TRAILER ASSEMBLER Ot N32.89 OTHER SPECIFIED DISORDERS OF BLADDER 02/16/2019 CHERRI PENG TRAILER ASSEMBLER Ot R91.8 OTHER NONSPECIFIC ABNORMAL FINDING OF CARLITO 02/25/2019 JESSICA MATHIS N Ot C61 MALIGNANT NEOPLASM OF PROSTATE 02/25/2019 JESSICA MATHIS N 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 02/25/2019 JESSICA MATHIS N Ot 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 02/25/2019 JESSICA MATHIS N Ot C79.51 SECONDARY MALIGNANT NEOPLASM OF BONE 02/25/2019 JESSICA MATHIS N Ot 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, UNSPECIFIED 02/25/2019 JESSICA MATHIS N Ot Z79.82 CARE HOME (CURRENT) USE OF ASPIRIN 02/25/2019 JESSICA MATHIS N Ot Z79.899 OTHER CARE HOME (CURRENT) DRUG THERAPY 03/02/2019 JESSICA MATHIS N Ot C61 MALIGNANT NEOPLASM OF PROSTATE 03/02/2019 JESSICA MATHIS N 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 03/02/2019 JESSICA MATHIS N Ot 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 03/02/2019 JESSICA MATHIS N Ot C79.51 SECONDARY MALIGNANT NEOPLASM OF BONE 03/02/2019 JESSICA MATHIS N Ot 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, UNSPECIFIED 03/02/2019 JESSICA MATHIS N Ot Z79.82 CARE HOME (CURRENT) USE OF ASPIRIN 03/02/2019 BOBBI MATHISAN N Ot Z79.899 OTHER SUPPLIER QUALITY MANAGER (CURRENT) DRUG THERAPY 03/24/2019 JESSICA MATHIS N Ot C61 MALIGNANT NEOPLASM OF PROSTATE 03/24/2019 JESSICA MATHIS N 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 03/24/2019 JESSICA MATHIS N Ot 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 03/24/2019 JESSICA MATHIS N Ot C79.51 SECONDARY MALIGNANT NEOPLASM OF BONE 03/24/2019 JESSICA MATHIS N Ot 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, UNSPECIFIED 03/24/2019 JESSICA MATHIS N Ot Z79.82 SUPPLIER QUALITY MANAGER (CURRENT) USE OF ASPIRIN 03/24/2019 JESSICA MATHIS N Ot Z79.899 OTHER CARE HOME (CURRENT) DRUG THERAPY 04/03/2019 CHRISTIAN JOYCE, AKASH Galeano Ot V72.84 EXAM PRE-OPERATIVE NOS 04/03/2019 CHRISTIAN JOYCE, AKASH Galeano Ot 154.1 MALIGNANT NEOPL RECTUM 04/03/2019 AKASH GONZALES MD Ot 185 MALIGN NEOPL PROSTATE 04/03/2019 AKASH GONZALES MD Ot 562.10 DIVERTICULOSIS COLON (W/O MENT OF HEMORR 04/03/2019 CHRISTIAN JOYCE, AKASH Galeano Ot V15.3 HX OF IRRADIATION 04/03/2019 DELJESSICA GALARZA N Ot 185 MALIGN NEOPL PROSTATE 04/03/2019 DELJESSICA N Ot 793.7 NOSP (ABN) FINDINGS ON RADIOLOGICAL OT 04/03/2019 CHERRI PENG TRAILER ASSEMBLER Ot 185 MALIGN NEOPL PROSTATE 04/03/2019 DELJESSICA N Ot 185 MALIGN NEOPL PROSTATE 04/03/2019 DEL BOBAN N Ot 198.5 SECONDARY MALIG KARAN BONE 04/03/2019 DEL BOBAN N Ot 781.91 LOSS OF HEIGHT 04/03/2019 DEL BOBAN N Ot 185 MALIGN NEOPL PROSTATE 04/03/2019 JESSICA MATHIS N Ot 198.5 SECONDARY MALIG KARAN BONE 04/03/2019 JESSICA MATHIS N Ot 733.90 BONE CARTILAGE DIS NOS 04/03/2019 CHERRI PENG TRAILER ASSEMBLER Ot 185 MALIGN NEOPL PROSTATE 04/03/2019 CHERRI PENG TRAILER ASSEMBLER Ot 198.5 SECONDARY MALIG KARAN BONE 04/03/2019 AKASH GONZALES MD Ot 787.20 DYSPHAGIA, UNSPECIFIED 04/03/2019 AKASH GONZALES MD Ot V72.84 EXAM PRE-OPERATIVE NOS 04/03/2019 CHERRI PENG TRAILER ASSEMBLER Ot C61 MALIGNANT NEOPLASM OF PROSTATE 04/03/2019 CHERRI PENG TRAILER ASSEMBLER Ot C79.51 SECONDARY MALIGNANT NEOPLASM OF BONE 04/03/2019 CHERRI PENGP Ot 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, UNSPECIFIED 04/03/2019 CHERRI PENGP Ot R23.2 FLUSHING 04/03/2019 CHERRI PENG TRAILER ASSEMBLER Ot Z79.899 OTHER SUPPLIER QUALITY MANAGER (CURRENT) DRUG THERAPY 04/03/2019 DEL BOBBILUZ Paulino Ot C61 MALIGNANT NEOPLASM OF PROSTATE 04/03/2019 DEL BOBBILUZ Paulino 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 04/03/2019 JESSICA MATHIS Ot C79.51 SECONDARY MALIGNANT NEOPLASM OF BONE 04/03/2019 CHERIR PENG TRAILER ASSEMBLER Ot C61 MALIGNANT NEOPLASM OF PROSTATE 04/03/2019 CHERRI PENG TRAILER ASSEMBLER Ot C79.51 SECONDARY MALIGNANT NEOPLASM OF BONE 04/03/2019 CHERRI PENG TRAILER ASSEMBLER Ot Z79.899 OTHER SUPPLIER QUALITY MANAGER (CURRENT) DRUG THERAPY 04/03/2019 BALDO WHEELER DC Ot 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 OR RADICULOPA 04/03/2019 BALDO WHEELER DC, Ot M47.816 SPONDYLOSIS W/O MYELOPATHY OR RADICULOPA 04/03/2019 BALDO WHEELER DC, Ot 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], THO 04/03/2019 BALDO WHEELER DC Ot M51.37 OTHER INTERVERTEBRAL DISC DEGENERATION, 04/03/2019 BALDO WHEELER DC Ot 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 04/03/2019 LIAM SANTANA, BALDO Sigala Ot 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 04/03/2019 LIAM SANTANA, BALDO Sigala Ot 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 04/03/2019 DANGELO JOYCE, AMOL Ot C61 MALIGNANT NEOPLASM OF PROSTATE 04/03/2019 DANGELO JOYCE, AMOL 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 04/03/2019 DANGELO JOYCE, AMOL Ot C79.51 SECONDARY MALIGNANT NEOPLASM OF BONE 04/03/2019 CHRISTIAN JOYCE, AKASH Galeano Ot C61 MALIGNANT NEOPLASM OF PROSTATE 04/03/2019 CHRISTIAN JOYCE, AKASH Galeano Ot C78.00 SECONDARY MALIGNANT NEOPLASM OF UNSPECIF 04/03/2019 CHRISTIAN JOYCE, AKASH Galeano Ot I67.82 CEREBRAL ISCHEMIA 04/03/2019 CHRISTIAN JOYCE, AKASH Galeano Ot R51 HEADACHE 04/03/2019 AKASH GONZALES MD Ot R31.9 HEMATURIA, UNSPECIFIED 04/03/2019 AKASH GONZALES MD Ot R82.90 UNSPECIFIED ABNORMAL FINDINGS IN URINE 04/03/2019 EDGARDO BURNS DO B Ot C61 MALIGNANT NEOPLASM OF PROSTATE 04/03/2019 EDGARDO BURNS DO B Ot 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 04/03/2019 EDGARDO BURNS DO B Ot K21.9 GASTRO-ESOPHAGEAL REFLUX DISEASE WITHOUT 04/03/2019 ABDULLAHI BURNS DOIC B Ot K22.10 ULCER OF ESOPHAGUS WITHOUT BLEEDING 04/03/2019 ABDULLAHI BURNS DOIC B Ot K26.9 DUODENAL ULCER, UNSP ACUTE OR CHRONIC 04/03/2019 ABDULLAHI BURNS DOIC B Ot K29.50 UNSPECIFIED CHRONIC GASTRITIS WITHOUT BL 04/03/2019 GRANT HARO EDGARDO B Ot K29.80 DUODENITIS WITHOUT BLEEDING 04/03/2019 ABDULLAHI BURNS DOIC B Ot K44.9 DIAPHRAGMATIC HERNIA WITHOUT OBSTRUCTION 04/03/2019 EDGARDO BURNS DO B Ot Z79.82 CARE HOME (CURRENT) USE OF ASPIRIN 04/03/2019 ABDULLAHI BURNS DOIC B Ot Z79.899 OTHER SUPPLIER QUALITY MANAGER (CURRENT) DRUG THERAPY 04/03/2019 EDGARDO BURNS DO B Ot Z87.891 PERSONAL HISTORY OF NICOTINE DEPENDENCE 04/03/2019 CHERRI PENG Ot C61 MALIGNANT NEOPLASM OF PROSTATE 04/03/2019 CHERRI PENG TRAILER ASSEMBLER 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 04/03/2019 CHERRI PENG TRAILER ASSEMBLER Ot C79.51 SECONDARY MALIGNANT NEOPLASM OF BONE 04/03/2019 CHERRI PENG TRAILER ASSEMBLER Ot N13.30 UNSPECIFIED HYDRONEPHROSIS 04/03/2019 CHERRI PENG TRAILER ASSEMBLER Ot N32.89 OTHER SPECIFIED DISORDERS OF BLADDER 04/03/2019 PENG, VITORNEYMAR Fernandez TRAILER ASSEMBLER Ot R91.8 OTHER NONSPECIFIC ABNORMAL FINDING OF CARLITO 04/03/2019 DEL BOBBILUZ N Ot C61 MALIGNANT NEOPLASM OF PROSTATE 04/03/2019 JESSICA MATHIS N 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 04/03/2019 DEL BOBBILUZ N Ot 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 04/03/2019 DEL BOBBILUZ N Ot C79.51 SECONDARY MALIGNANT NEOPLASM OF BONE 04/03/2019 JESSICA MATHIS N Ot 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, UNSPECIFIED 04/03/2019 JESSICA MATHIS N Ot Z79.82 CARE HOME (CURRENT) USE OF ASPIRIN 04/03/2019 JESSICA MATHIS N Ot Z79.899 OTHER SUPPLIER QUALITY MANAGER (CURRENT) DRUG THERAPY 05/07/2019 JESSICA MATHIS N Ot C61 MALIGNANT NEOPLASM OF PROSTATE 05/07/2019 JESSICA MATHIS N 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 05/07/2019 JESSICA MATHIS N Ot 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 05/07/2019 DEL BOBBILUZ N Ot C79.51 SECONDARY MALIGNANT NEOPLASM OF BONE 05/07/2019 JESSICA MATHIS N Ot 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, UNSPECIFIED 05/07/2019 JESSICA MATHIS N Ot Z79.82 SUPPLIER QUALITY MANAGER (CURRENT) USE OF ASPIRIN 05/07/2019 DEL JESSICA N Ot Z79.899 OTHER SUPPLIER QUALITY MANAGER (CURRENT) DRUG THERAPY 05/21/2019 DELJAYDA DO EDGARDO B Ot C61 MALIGNANT NEOPLASM OF PROSTATE 05/21/2019 DELJAYDA DO EDGARDO B Ot 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 05/21/2019 GRANT HARO EDGARDO B Ot K21.9 GASTRO-ESOPHAGEAL REFLUX DISEASE WITHOUT 05/21/2019 DELMAN DO, EDGARDO B Ot K22.10 ULCER OF ESOPHAGUS WITHOUT BLEEDING 05/21/2019 DELMAN DO, EDGARDO B Ot K26.9 DUODENAL ULCER, UNSP ACUTE OR CHRONIC 05/21/2019 DELMAN DO, EDGARDO B Ot 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.50 UNSPECIFIED CHRONIC GASTRITIS 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 05/21/2019 DELMAN DO, EDGARDO B Ot K29.80 DUODENITIS WITHOUT BLEEDING 05/21/2019 DELMAN DO, EDGARDO B Ot K44.9 DIAPHRAGMATIC HERNIA WITHOUT OBSTRUCTION 05/21/2019 DELMAN DO, EDGARDO B Ot Z79.82 SUPPLIER QUALITY MANAGER (CURRENT) USE OF ASPIRIN 05/21/2019 DELMAN DO, EDGARDO B Ot Z79.899 OTHER SUPPLIER QUALITY MANAGER (CURRENT) DRUG THERAPY 05/21/2019 DELMAN DO, EDGARDO B Ot Z87.891 PERSONAL HISTORY OF NICOTINE DEPENDENCE 05/22/2019 DELMAN DO, EDGARDO B Ot C61 MALIGNANT NEOPLASM OF PROSTATE 05/22/2019 DELMAN DO, EDGARDO B Ot 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 05/22/2019 DELMAN DO, EDGARDO B Ot K21.9 GASTRO-ESOPHAGEAL REFLUX DISEASE WITHOUT 05/22/2019 DELMAN DO, EDGARDO B Ot K22.10 ULCER OF ESOPHAGUS WITHOUT BLEEDING 05/22/2019 DELMAN DO, EDGARDO B Ot K26.9 DUODENAL ULCER, UNSP ACUTE OR CHRONIC 05/22/2019 DELMAN DO, EDGARDO B Ot 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.50 UNSPECIFIED CHRONIC GASTRITIS WITHOUT BL 05/22/2019 DELMAN DO, EDGARDO B Ot K29.80 DUODENITIS WITHOUT BLEEDING 05/22/2019 DELMAN DO, EDGARDO B Ot K44.9 DIAPHRAGMATIC HERNIA WITHOUT OBSTRUCTION 05/22/2019 DELMAN DO, EDGARDO B Ot Z79.82 SUPPLIER QUALITY MANAGER (CURRENT) USE OF ASPIRIN 05/22/2019 DELMAN DO, EDGARDO B Ot Z79.899 OTHER SUPPLIER QUALITY MANAGER (CURRENT) DRUG THERAPY 05/22/2019 DELMAN DO, EDGARDO B Ot Z87.891 PERSONAL HISTORY OF NICOTINE DEPENDENCE 05/22/2019 DELMAN DO, EDGARDO B Ot C61 MALIGNANT NEOPLASM OF PROSTATE 05/22/2019 DELMAN DO, EDGARDO B Ot 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 05/22/2019 DELMAN DO, EDGARDO B Ot K21.9 GASTRO-ESOPHAGEAL REFLUX DISEASE WITHOUT 05/22/2019 DELMAN DO, EDGARDO B Ot K22.10 ULCER OF ESOPHAGUS WITHOUT BLEEDING 05/22/2019 DELMAN DO, EDGARDO B Ot K26.9 DUODENAL ULCER, UNSP ACUTE OR CHRONIC 05/22/2019 DELMAN DO, EDGARDO B Ot K29.50 UNSPECIFIED CHRONIC GASTRITIS WITHOUT BL 05/22/2019 DELMAN DO, EDGARDO B Ot K29.80 DUODENITIS WITHOUT BLEEDING 05/22/2019 DELMAN DO, EDGARDO B Ot K44.9 DIAPHRAGMATIC HERNIA WITHOUT OBSTRUCTION 05/22/2019 DELMAN DO, EDGARDO B Ot Z79.82 SUPPLIER QUALITY MANAGER (CURRENT) USE OF ASPIRIN 05/22/2019 DELMAN DO, EDGARDO B Ot Z79.899 OTHER SUPPLIER QUALITY MANAGER (CURRENT) DRUG THERAPY 05/22/2019 DELMAN DO, EDGARDO B Ot Z87.891 PERSONAL HISTORY OF NICOTINE DEPENDENCE 05/22/2019 DELMAN DO, EDGARDO B Ot C61 MALIGNANT NEOPLASM OF PROSTATE 05/22/2019 DELMAN DO, EDGARDO B Ot 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 05/22/2019 DELMAN DO, EDGARDO B Ot K21.9 GASTRO-ESOPHAGEAL REFLUX DISEASE WITHOUT 05/22/2019 DELMAN DO, EDGARDO B Ot K22.10 ULCER OF ESOPHAGUS WITHOUT BLEEDING 05/22/2019 DELMAN DO, EDGARDO B Ot K26.9 DUODENAL ULCER, UNSP ACUTE OR CHRONIC 05/22/2019 DELMAN DO, EDGARDO B Ot 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.50 UNSPECIFIED CHRONIC GASTRITIS WITHOUT BL 05/22/2019 DELMAN DO, EDGARDO B Ot K29.80 DUODENITIS WITHOUT BLEEDING 05/22/2019 DELMAN DO, EDGARDO B Ot K44.9 DIAPHRAGMATIC HERNIA WITHOUT OBSTRUCTION 05/22/2019 DELMAN DO, EDGARDO B Ot Z79.82 SUPPLIER QUALITY MANAGER (CURRENT) USE OF ASPIRIN 05/22/2019 DELMAN DO, EDGARDO B Ot Z79.899 OTHER SUPPLIER QUALITY MANAGER (CURRENT) DRUG THERAPY 05/22/2019 DELMAN DO, EDGARDO B Ot Z87.891 PERSONAL HISTORY OF NICOTINE DEPENDENCE 05/22/2019 DELMAN DO, EDGARDO B Ot C61 MALIGNANT NEOPLASM OF PROSTATE 05/22/2019 DELMAN DO, EDGARDO B Ot 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 05/22/2019 DELMAN DO, EDGARDO B Ot K21.9 GASTRO-ESOPHAGEAL REFLUX DISEASE WITHOUT 05/22/2019 DELMAN DO, EDGARDO B Ot K22.10 ULCER OF ESOPHAGUS WITHOUT BLEEDING 05/22/2019 GRANT HARO EDGARDO B Ot K26.9 DUODENAL ULCER, UNSP ACUTE OR CHRONIC 05/22/2019 GRANT HARO EDGARDO B Ot 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.50 UNSPECIFIED CHRONIC GASTRITIS WITHOUT BL 05/22/2019 GRANT HARO EDGARDO B Ot K29.80 DUODENITIS WITHOUT BLEEDING 05/22/2019 GRANT HARO EDGARDO B Ot K44.9 DIAPHRAGMATIC HERNIA WITHOUT OBSTRUCTION 05/22/2019 GRANT HARO EDGARDO B Ot Z79.82 SUPPLIER QUALITY MANAGER (CURRENT) USE OF ASPIRIN 05/22/2019 GRANT HARO EDGARDO B Ot Z79.899 OTHER CARE HOME (CURRENT) DRUG THERAPY 05/22/2019 GRANT HARO EDGARDO B Ot Z87.891 PERSONAL HISTORY OF NICOTINE DEPENDENCE 06/21/2019 JESSICA MATHIS N Ot C61 MALIGNANT NEOPLASM OF PROSTATE 06/21/2019 JESSICA MATHIS N 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 06/21/2019 JESSICA MATHIS N Ot 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 06/21/2019 DEL BOBLUZ N Ot C79.51 SECONDARY MALIGNANT NEOPLASM OF BONE 06/21/2019 DELJESSICA N Ot 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, UNSPECIFIED 06/21/2019 JESSICA MATHIS N Ot Z79.82 CARE HOME (CURRENT) USE OF ASPIRIN 06/21/2019 BOBBI MATHISAN N Ot Z79.899 OTHER CARE HOME (CURRENT) DRUG THERAPY 06/22/2019 JESSICA MATHIS N Ot C61 MALIGNANT NEOPLASM OF PROSTATE 06/22/2019 JESSICA MATHIS N 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 06/22/2019 DELJESSICA GALARZA N Ot 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 06/22/2019 DELJESSICA GALARZA N Ot C79.51 SECONDARY MALIGNANT NEOPLASM OF BONE 06/22/2019 JESSICA MATHIS N Ot 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, UNSPECIFIED 06/22/2019 DEL, BOBAN N Ot Z79.82 SUPPLIER QUALITY MANAGER (CURRENT) USE OF ASPIRIN 06/22/2019 BOBBI MATHISAN N Ot Z79.899 OTHER CARE HOME (CURRENT) DRUG THERAPY 06/22/2019 DEL, BOBAN N Ot C61 MALIGNANT NEOPLASM OF PROSTATE 06/22/2019 JESSICA MATHIS 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 06/22/2019 JESSICA MATHIS Ot 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 06/22/2019 JESSICA MATHIS Ot C79.51 SECONDARY MALIGNANT NEOPLASM OF BONE 06/22/2019 JESSICA MATHIS Ot 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, UNSPECIFIED 06/22/2019 JESSICA MATHIS Ot R82.998 OTHER ABNORMAL FINDINGS IN URINE 06/22/2019 JESSICA MATHIS Ot Z79.82 SUPPLIER QUALITY MANAGER (CURRENT) USE OF ASPIRIN 06/22/2019 JESSICA MATHIS N Ot Z79.899 OTHER CARE HOME (CURRENT) DRUG THERAPY 06/25/2019 DELMAN DO, EDGARDO B Ot C61 MALIGNANT NEOPLASM OF PROSTATE 06/25/2019 DELMAN DO, EDGARDO B Ot 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 06/25/2019 DELJAYDA DO, EDGARDO B Ot K21.9 GASTRO-ESOPHAGEAL REFLUX DISEASE WITHOUT 06/25/2019 DELMAN DO, EDGARDO B Ot K22.10 ULCER OF ESOPHAGUS WITHOUT BLEEDING 06/25/2019 DELMAN DO, EDGARDO B Ot K26.9 DUODENAL ULCER, UNSP ACUTE OR CHRONIC 06/25/2019 DELMAN DO, EDGARDO B Ot K29.50 UNSPECIFIED CHRONIC GASTRITIS WITHOUT BL 06/25/2019 DELMAN DO, EDGARDO B Ot K29.80 DUODENITIS WITHOUT BLEEDING 06/25/2019 DELMAN DO, EDGARDO B Ot K44.9 DIAPHRAGMATIC HERNIA WITHOUT OBSTRUCTION 06/25/2019 QAMARMAN DO, EDGARDO B Ot Z79.82 CARE HOME (CURRENT) USE OF ASPIRIN 06/25/2019 DELMAN DO, EDGARDO B Ot Z79.899 OTHER CARE HOME (CURRENT) DRUG THERAPY 06/25/2019 DELMAN DO, EDGARDO B Ot Z87.891 PERSONAL HISTORY OF NICOTINE DEPENDENCE 06/30/2019 DELMAN DO, EDGARDO B Ot C61 MALIGNANT NEOPLASM OF PROSTATE 06/30/2019 DELMAN DO, EDGARDO B Ot 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 06/30/2019 DELMAN DO, EDGARDO B Ot K21.9 GASTRO-ESOPHAGEAL REFLUX DISEASE WITHOUT 06/30/2019 DELMAN DO, EDGARDO B Ot K22.10 ULCER OF ESOPHAGUS WITHOUT BLEEDING 06/30/2019 EDGARDO BURNS DO Ot K26.9 DUODENAL ULCER, UNSP ACUTE OR CHRONIC 06/30/2019 EDGARDO BURNS DO Ot K29.50 UNSPECIFIED CHRONIC GASTRITIS WITHOUT BL 06/30/2019 EDGARDO BURNS DO B Ot K29.80 DUODENITIS WITHOUT BLEEDING 06/30/2019 EDGARDO BURNS DO Ot K44.9 DIAPHRAGMATIC HERNIA WITHOUT OBSTRUCTION 06/30/2019 EDGARDO BURNS DO Ot Z79.82 SUPPLIER QUALITY MANAGER (CURRENT) USE OF ASPIRIN 06/30/2019 EDGARDO BURNS DO B Ot Z79.899 OTHER SUPPLIER QUALITY MANAGER (CURRENT) DRUG THERAPY 06/30/2019 EDGARDO BURNS DO Ot Z87.891 PERSONAL HISTORY OF NICOTINE DEPENDENCE Procedures Code Description Performed By Performed On [id number] INSPECTION OF BLADDER, ENDO 10/24/2018 Results Test [...] sediment leukocyte count by microscopy (number/high power field) NONE NRG Bacteria detection in urine sediment [...] Automated erythrocyte mean corpuscular hemoglobin concentration measurement (mass/volume) 33 g/dL 32-36 Automated erythrocyte distribution width ratio 12.3 % 10.0- 14.5 Automated blood platelet count (count/volume) 279 10*3/uL [...] Blood monocytes automated count (number/volume) 0.5 10*3 0.0- 1.0 Automated eosinophil count 0.3 10*3/uL 0.0-0.3 Automated [...] or plasma urea nitrogen/creatinine mass ratio 14 0- 20 Serum or plasma creatinine measurement with calculation of estimated glomerular filtration rate > NRG Serum or plasma glucose measurement (mass/volume) 102 mg/dL 70-105 Serum or plasma calcium measurement (mass/volume) 9.3 mg/dL 8.5-10.1 Serum or plasma total bilirubin measurement (mass/volume) 0.9 mg/dL 0.1-1.0 Serum or plasma alkaline phosphatase measurement (enzymatic activity/volume) 97 U/L 40-136 Serum or plasma aspartate aminotransferase measurement (enzymatic activity/volume) 25 U/L 5-34 Serum or plasma alanine aminotransferase measurement (enzymatic activity/volume) 12 U/L 0-55 Serum or plasma protein [...] sediment leukocyte count by microscopy (number/high power field) > [HPF] NRG Bacteria detection in urine [...] Automated erythrocyte mean corpuscular hemoglobin concentration measurement (mass/volume) 34 g/dL 32-36 Automated erythrocyte distribution width ratio 12.3 % 10.0- 14.5 Automated blood platelet count (count/volume) 311 10*3/uL [...] Blood monocytes automated count (number/volume) 0.6 10*3 0.0- 1.0 Automated eosinophil count 0.5 10*3/uL 0.0-0.3 Automated [...] Serum or plasma aspartate aminotransferase measurement (enzymatic activity/volume) 19 U/L 5-34 Serum or plasma alanine aminotransferase measurement (enzymatic activity/volume) 9 U/L 0-55 Serum or plasma protein measurement (mass/volume) 6.7 g/dL 6.4-8.2 Serum or plasma albumin measurement (mass/volume) 4.0 g/dL 3.2-4.5 CALCIUM CORRECTED 9.6 mg/dL 8.5-10.1 Magnesium - 10/21/18 03:52 Magnesium 2.1 mg/dL 1.8-2.4 Serum or plasma creatine kinase measurement (enzymatic activity/volume) - 10/21/18 03:52 Serum or plasma creatine kinase measurement (enzymatic activity/volume) 59 U/L 30-200 Serum or plasma creatine kinase MB measurement (enzymatic activity/volume) - 10/21/18 03:52 Serum or plasma creatine kinase MB measurement (enzymatic activity/volume) 1.4 ng/mL <6.6 Serum or plasma troponin i.cardiac measurement (mass/volume) - 10/21/18 03:52 Serum or plasma troponin i.cardiac measurement (mass/volume) < ng/mL <0.028 Myoglobin, serum - 10/21/18 03:52 Myoglobin, [...] gravity of urine by test strip 1.015 1.016-1.022 Urine protein assay by test strip, [...] sediment leukocyte count by microscopy (number/high power field) NONE NRG Bacteria detection in urine sediment [...] Automated erythrocyte mean corpuscular hemoglobin concentration measurement (mass/volume) 33 g/dL 32-36 Automated erythrocyte distribution width ratio 12.2 % 10.0- 14.5 Automated blood platelet count (count/volume) 285 10*3/uL [...] Blood monocytes automated count (number/volume) 0.7 10*3 0.0- 1.0 Automated eosinophil count 0.4 10*3/uL 0.0-0.3 Automated [...] Serum or plasma aspartate aminotransferase measurement (enzymatic activity/volume) 15 U/L 5-34 Serum or plasma alanine aminotransferase measurement (enzymatic activity/volume) < U/L 0-55 Serum or plasma protein measurement (mass/volume) 6.0 g/dL 6.4-8.2 Serum or plasma albumin measurement (mass/volume) 3.5 g/dL 3.2-4.5 CALCIUM CORRECTED 9.4 mg/dL 8.5-10.1 Methicillin resistant Staphylococcus aureus (MRSA) screening culture - 10/24/18 21:20 Methicillin resistant Staphylococcus aureus (MRSA) screening culture NEG NRG Complete urinalysis with reflex to culture - 01/07/19 10:05 Urine color determination YELLOW NRG Urine clarity determination SLIGHTLY CLOUDY NRG Urine pH measurement by test strip 6 5-9 Specific gravity of urine by test strip 1.015 1.016-1.022 Urine protein assay by test strip, [...] sediment leukocyte count by microscopy (number/high power field) [HPF] NRG Bacteria detection in urine sediment [...] Serum or plasma aspartate aminotransferase measurement (enzymatic activity/volume) 20 U/L 5-34 Serum or plasma alanine aminotransferase measurement (enzymatic activity/volume) 9 U/L 0-55 Serum or plasma protein measurement (mass/volume) 6.8 g/dL 6.4-8.2 Serum or plasma albumin measurement (mass/volume) 4.0 g/dL 3.2-4.5 CALCIUM CORRECTED 9.3 mg/dL 8.5-10.1 Magnesium - 01/07/19 10:05 Magnesium 2.0 mg/dL 1.8-2.4 Complete blood count (CBC) with automated white blood cell (WBC) differential - 04/21/19 14:10 Blood leukocytes automated count (number/volume) 5.7 10*3/uL 4.3-11.0 Blood erythrocytes automated count (number/volume) 3.82 10*6/uL 4.35-5.85 Venous blood hemoglobin measurement (mass/volume) 10.5 g/dL 13.3-17.7 Blood hematocrit (volume fraction) 33 % 40-54 Automated erythrocyte mean corpuscular volume 86 [foz_us] 80-99 Automated erythrocyte mean corpuscular hemoglobin (mass per erythrocyte) 28 pg 25-34 Automated erythrocyte mean corpuscular hemoglobin concentration measurement (mass/volume) 32 g/dL 32-36 Automated erythrocyte distribution width ratio 13.5 % 10.0- 14.5 Automated blood platelet count (count/volume) 393 10*3/uL 130-400 Automated blood platelet mean volume measurement 7.8 [foz_us] 7.4-10.4 Automated blood neutrophils/100 leukocytes 47 % 42-75 Automated blood lymphocytes/100 leukocytes 38 % 12-44 Blood monocytes/100 leukocytes 8 % 0-12 Automated blood eosinophils/100 leukocytes 5 % 0-10 Automated blood basophils/100 leukocytes 1 % 0-10 Blood neutrophils automated count (number/volume) 2.7 10*3 1.8-7.8 Blood lymphocytes automated count (number/volume) 2.2 10*3 1.0-4.0 Blood monocytes automated count (number/volume) 0.5 10*3 0.0- 1.0 Automated eosinophil count 0.3 10*3/uL 0.0-0.3 Automated blood basophil count (count/volume) 0.1 10*3/uL 0.0-0.1 Comprehensive metabolic panel - 04/21/19 14:10 Serum or plasma sodium measurement (moles/volume) 142 mmol/L 135-145 Serum or plasma potassium measurement (moles/volume) 4.6 mmol/L 3.6-5.0 Serum or plasma chloride measurement (moles/volume) 103 mmol/L 98-107 Carbon dioxide 28 mmol/L 21-32 Serum or plasma anion gap determination (moles/volume) 11 mmol/L 5-14 Serum or plasma urea nitrogen measurement (mass/volume) 12 mg/dL 7-18 Serum or plasma creatinine measurement (mass/volume) 1.02 mg/dL 0.60-1.30 Serum or plasma urea nitrogen/creatinine mass ratio 12 NRG Serum or plasma creatinine measurement with calculation of estimated glomerular filtration rate > NRG Serum or plasma glucose measurement (mass/volume) 101 mg/dL 70-105 Serum or plasma calcium measurement (mass/volume) 9.5 mg/dL 8.5-10.1 Serum or plasma total bilirubin measurement (mass/volume) 0.5 mg/dL 0.1-1.0 Serum or plasma alkaline phosphatase measurement (enzymatic activity/volume) 104 U/L 40-136 Serum or plasma aspartate aminotransferase measurement (enzymatic activity/volume) 13 U/L 5-34 Serum or plasma alanine aminotransferase measurement (enzymatic activity/volume) 6 U/L 0-55 Serum or plasma protein measurement (mass/volume) 6.9 g/dL 6.4-8.2 Serum or plasma albumin measurement (mass/volume) 3.7 g/dL 3.2-4.5 CALCIUM CORRECTED 9.7 mg/dL 8.5-10.1 Prostate specific ag [mass/volume] in serum or plasma - 04/21/19 14:10 PSA EQUIMOLAR (ROSA) 6.85 % 0.00-4.00 Complete blood count (CBC) with automated white blood cell (WBC) differential - 06/17/19 10:46 Blood leukocytes automated count (number/volume) 5.9 10*3/uL 4.3-11.0 Blood erythrocytes automated count (number/volume) 3.79 10*6/uL 4.35-5.85 Venous blood hemoglobin measurement (mass/volume) 10.3 g/dL 13.3-17.7 Blood hematocrit (volume fraction) 33 % 40-54 Automated erythrocyte mean corpuscular volume 88 [foz_us] 80-99 Automated erythrocyte mean corpuscular hemoglobin (mass per erythrocyte) 27 pg 25-34 Automated erythrocyte mean corpuscular hemoglobin concentration measurement (mass/volume) 31 g/dL 32-36 Automated erythrocyte distribution width ratio 14.2 % 10.0- 14.5 Automated blood platelet count (count/volume) 525 10*3/uL 130-400 Automated blood platelet mean volume measurement 8.1 [foz_us] 7.4-10.4 Automated blood neutrophils/100 leukocytes 54 % 42-75 Automated blood lymphocytes/100 leukocytes 22 % 12-44 Blood monocytes/100 leukocytes 9 % 0-12 Automated blood eosinophils/100 leukocytes 14 % 0-10 Automated blood basophils/100 leukocytes 1 % 0-10 Blood neutrophils automated count (number/volume) 3.2 10*3 1.8-7.8 Blood lymphocytes automated count (number/volume) 1.3 10*3 1.0-4.0 Blood monocytes automated count (number/volume) 0.5 10*3 0.0- 1.0 Automated eosinophil count 0.9 10*3/uL 0.0-0.3 Automated blood basophil count (count/volume) 0.1 10*3/uL 0.0-0.1 Comprehensive metabolic panel - 06/17/19 10:46 Serum or plasma sodium measurement (moles/volume) 143 mmol/L 135-145 Serum or plasma potassium measurement (moles/volume) 4.3 mmol/L 3.6-5.0 Serum or plasma chloride measurement (moles/volume) 107 mmol/L 98-107 Carbon dioxide 30 mmol/L 21-32 Serum or plasma anion gap determination (moles/volume) 6 mmol/L 5-14 Serum or plasma urea nitrogen measurement (mass/volume) 15 mg/dL 7-18 Serum or plasma creatinine measurement (mass/volume) 1.12 mg/dL 0.60-1.30 Serum or plasma urea nitrogen/creatinine mass ratio 13 NRG Serum or plasma creatinine measurement with calculation of estimated glomerular filtration rate > NRG Serum or plasma glucose measurement (mass/volume) 101 mg/dL 70-105 Serum or plasma calcium measurement (mass/volume) 9.6 mg/dL 8.5-10.1 Serum or plasma total bilirubin measurement (mass/volume) 0.5 mg/dL 0.1-1.0 Serum or plasma alkaline phosphatase measurement (enzymatic activity/volume) 109 U/L 40-136 Serum or plasma aspartate aminotransferase measurement (enzymatic activity/volume) 14 U/L 5-34 Serum or plasma alanine aminotransferase measurement (enzymatic activity/volume) < U/L 0-55 Serum or plasma protein measurement (mass/volume) 7.5 g/dL 6.4-8.2 Serum or plasma albumin measurement (mass/volume) 3.8 g/dL 3.2-4.5 CALCIUM CORRECTED 9.8 mg/dL 8.5-10.1 Prostate specific ag [mass/volume] in serum or plasma - 06/17/19 10:46 PSA EQUIMOLAR (ROSA) 7.61 % 0.00-4.00 Bacterial urine culture - 06/18/19 11:29 Bacterial urine culture [id number] NRG COLONY COUNT >100,000/ML NRG FTX;REPORTABLE SUSCEPTIBILITY REPORTED 06/22 07:00 NRG FREE TEXT ENTRY 2 SEE COMMENTS NRG FREE TEXT ENTRY 3 METHICILLIN RESISTANT STAPH AUREUS NRG Dirithromycin susceptibility test by disk diffusion - 06/18/19 11:29 Gentamicin susceptibility test by minimum inhibitory concentration <= NRG Levofloxacin susceptibility test by minimum inhibitory concentration 4 NRG Tobramycin susceptibility test by minimum inhibitory concentration <= NRG Piperacillin/tazobactam susceptibility test by minimum inhibitory concentration = NRG Ciprofloxacin susceptibility test by minimum inhibitory concentration 1 NRG Meropenem susceptibility test by minimum inhibitory concentration 0.5 NRG Aztreonam susceptibility test by minimum inhibitory concentration > NRG Cefepime susceptibility test by minimum inhibitory concentration 8 NRG Imipenem susceptibility test by minimum inhibitory concentration 1 NRG Ceftazidime susceptibility test by minimum inhibitory concentration 8 NRG Dirithromycin susceptibility test by disk diffusion - 06/18/19 11:29 Oxacillin susceptibility test by minimum inhibitory concentration > NRG Vancomycin susceptibility test by minimum inhibitory concentration 1 NRG Levofloxacin susceptibility test by minimum inhibitory concentration > NRG Rifampin susceptibility test by minimum inhibitory concentration <= NRG Cefazolin susceptibility test by minimum inhibitory concentration > NRG Nitrofurantoin susceptibility test by minimum inhibitory concentration <= NRG Penicillin G susceptibility test by minimum inhibitory concentration > NRG Whole blood basic metabolic panel - 06/22/19 19:06 Serum or plasma sodium measurement (moles/volume) 140 mmol/L 135-145 Serum or plasma potassium measurement (moles/volume) 4.0 mmol/L 3.6-5.0 Serum or plasma chloride measurement (moles/volume) 105 mmol/L 98-107 Carbon dioxide 27 mmol/L 21-32 Serum or plasma anion gap determination (moles/volume) 8 mmol/L 5-14 Serum or plasma urea nitrogen measurement (mass/volume) 16 mg/dL 7-18 Serum or plasma creatinine measurement (mass/volume) 1.10 mg/dL 0.60-1.30 Serum or plasma urea nitrogen/creatinine mass ratio 15 NRG Serum or plasma creatinine measurement with calculation of estimated glomerular filtration rate > NRG Serum or plasma glucose measurement (mass/volume) 107 mg/dL 70-105 Serum or plasma calcium measurement (mass/volume) 8.8 mg/dL 8.5-10.1 Complete blood count (CBC) with automated white blood cell (WBC) differential - 06/22/19 19:06 Blood leukocytes automated count (number/volume) 4.8 10*3/uL 4.3-11.0 Blood erythrocytes automated count (number/volume) 3.17 10*6/uL 4.35-5.85 Venous blood hemoglobin measurement (mass/volume) 9.0 g/dL 13.3-17.7 Blood hematocrit (volume fraction) 28 % 40-54 Automated erythrocyte mean corpuscular volume 88 [foz_us] 80-99 Automated erythrocyte mean corpuscular hemoglobin (mass per erythrocyte) 28 pg 25-34 Automated erythrocyte mean corpuscular hemoglobin concentration measurement (mass/volume) 32 g/dL 32-36 Automated erythrocyte distribution width ratio 13.8 % 10.0- 14.5 Automated blood platelet count (count/volume) 357 10*3/uL 130-400 Automated blood platelet mean volume measurement 8.0 [foz_us] 7.4-10.4 Automated blood neutrophils/100 leukocytes 40 % 42-75 Automated blood lymphocytes/100 leukocytes 29 % 12-44 Blood monocytes/100 leukocytes 12 % 0-12 Automated blood eosinophils/100 leukocytes 19 % 0-10 Automated blood basophils/100 leukocytes 1 % 0-10 Blood neutrophils automated count (number/volume) 1.9 10*3 1.8-7.8 Blood lymphocytes automated count (number/volume) 1.4 10*3 1.0-4.0 Blood monocytes automated count (number/volume) 0.6 10*3 0.0- 1.0 Automated eosinophil count 0.9 10*3/uL 0.0-0.3 Automated blood basophil count (count/volume) 0.1 10*3/uL 0.0-0.1 Manual absolute plasma cell count - 06/22/19 19:06 Blood monocytes/100 leukocytes 5 % NRG Manual blood segmented neutrophils/100 leukocytes 43 % NRG Blood band neutrophils/100 leukocytes 2 % NRG Manual blood lymphocytes/100 leukocytes 33 % NRG Manual eosinophils/100 leukocytes in nose 16 % NRG Manual blood basophils/100 leukocytes 1 % NRG Blood erythrocyte morphology finding identification NORMAL NRG Automated blood complete blood count (hemogram) panel - 06/23/19 06:11 Blood leukocytes automated count (number/volume) 6.2 10*3/uL 4.3-11.0 Blood erythrocytes automated count (number/volume) 3.34 10*6/uL 4.35-5.85 Venous blood hemoglobin measurement (mass/volume) 9.3 g/dL 13.3-17.7 Blood hematocrit (volume fraction) 29 % 40-54 Automated erythrocyte mean corpuscular volume 87 [foz_us] 80-99 Automated erythrocyte mean corpuscular hemoglobin (mass per erythrocyte) 28 pg 25-34 Automated erythrocyte mean corpuscular hemoglobin concentration measurement (mass/volume) 32 g/dL 32-36 Automated erythrocyte distribution width ratio 13.8 % 10.0- 14.5 Automated blood platelet count (count/volume) 347 10*3/uL 130-400 Automated blood platelet mean volume measurement 8.3 [foz_us] 7.4-10.4 Whole blood basic metabolic panel - 06/23/19 06:11 Serum or plasma sodium measurement (moles/volume) 142 mmol/L 135-145 Serum or plasma potassium measurement (moles/volume) 3.8 mmol/L 3.6-5.0 Serum or plasma chloride measurement (moles/volume) 108 mmol/L 98-107 Carbon dioxide 25 mmol/L 21-32 Serum or plasma anion gap determination (moles/volume) 9 mmol/L 5-14 Serum or plasma urea nitrogen measurement (mass/volume) 12 mg/dL 7-18 Serum or plasma creatinine measurement (mass/volume) 0.95 mg/dL 0.60-1.30 Serum or plasma urea nitrogen/creatinine mass ratio 13 NRG Serum or plasma creatinine measurement with calculation of estimated glomerular filtration rate > NRG Serum or plasma glucose measurement (mass/volume) 92 mg/dL 70-105 Serum or plasma calcium measurement (mass/volume) 8.7 mg/dL 8.5-10.1 Encounters ACCT No. Visit Date/Time Discharge Status Pt. Type Provider Facility Loc./Unit Complaint [id number] 05/28/2019 00:21:31 Document Registration [id number] 05/20/2019 00:23:48 Document Registration [id number] 05/20/2019 00:16:06 Document Registration [id number] 04/25/2019 10:53:41 Document Registration [id number] 04/25/2019 10:48:15 Document Registration [id number] 04/13/2019 18:41:14 Document Registration [id number] 04/13/2019 18:31:26 Document Registration [id number] 04/01/2019 01:14:06 Document Registration [id number] 01/28/2019 00:38:43 Document Registration [id number] 01/19/2019 00:00:01 Document Registration [id number] 01/13/2019 13:24:19 Document Registration [id number] 09/20/2014 00:00:00 09/20/2014 23:59:59 CLS Outpatient DONAVAN ALANIZ DDS [id number] 06/22/2019 17:45:00 06/23/2019 11:17:00 DIS Inpatient EMORY JOYCE, [place] Murphy [facility] 4TH UTI [id number] 06/22/2019 00:14:00 06/22/2019 23:59:59 CLS Preadmit JESSICA MATHIS [facility] ONC [id number] 06/18/2019 10:43:00 06/21/2019 00:01:00 DIS Outpatient JESSICA MATHIS [facility] ONC [id number] 02/23/2019 13:36:00 02/25/2019 00:01:00 DIS Outpatient JESSICA MATHIS [facility] ONC [id number] 01/01/2019 11:13:00 02/06/2019 15:36:00 DIS Outpatient AKASH GONZALES MD [facility] REHAB SPINAL STENOSIS; PROSTATE CANCER DECONDITIONING [id number] 01/25/2019 13:34:00 01/25/2019 14:17:00 DIS Emergency CAMELIA GROVES [facility] ER NEPHROSTOMY BAG LEAKING [id number] 01/07/2019 09:49:00 01/07/2019 12:10:00 DIS Emergency MAYUR RODRIGUEZ MD [facility] ER WEAKNESS;NOT EATING;HIGH BP [id number] 12/05/2018 10:15:00 12/05/2018 23:59:59 CLS Outpatient CHERRI PENG [facility] RAD IMAGING STUDY TO RESTAGE NEOPLASM [id number] 10/23/2018 10:05:00 2018 13:35:00 DIS Inpatient BRAYDEN COHEN DO [facility] IRF DEBILITY, SPINAL STENOSIS [id number] 10/25/2018 10:26:00 10/25/2018 23:59:59 CLS Outpatient EDGARDO BURNS DO [facility] ENDO SCOPE [id number] 10/21/2018 08:00:00 10/23/2018 10:00:00 DIS Inpatient HALIE LORENZO MD [facility] 4TH INTRACTABLE VERTIGO;S/P FALL; HEAD INJURY W/O [id number] 10/20/2018 10:55:00 10/20/2018 00:01:00 DIS Outpatient JESSICA MATHIS [facility] ONC [id number] 08/21/2018 13:53:00 08/21/2018 23:59:59 CLS Outpatient AKASH GONZALES MD [facility] LAB HEMATURIA [id number] 08/06/2018 12:16:00 08/06/2018 23:59:59 CLS Outpatient AKASH GONZALES MD [facility] RAD DIZZINESS,NAUSEA,PROSTATE CA W/ LUNG METASIS [id number] 07/03/2018 13:38:00 07/13/2018 00:01:00 DIS Outpatient AMOL PIERSON MD [facility] ONC [id number] 07/08/2018 12:04:00 07/08/2018 23:59:59 CLS Outpatient AMOL PIERSON MD [facility] CARD C61 PROSTATE CA [id number] 06/26/2018 10:59:00 07/02/2018 15:58:00 DIS Outpatient JESSICA MATHIS N [facility] ONC [id number] 06/30/2018 10:09:00 06/30/2018 23:59:59 CLS Outpatient LIAM SANTANA, BALDO Sigala [facility] RAD M54.2 [id number] 03/20/2018 13:06:00 06/11/2018 00:01:00 DIS Outpatient JESSICA MATHIS N [facility] ONC [id number] 12/26/2017 13:08:00 02/19/2018 00:01:00 DIS Outpatient JESSICA MATHIS Paulino [facility] ONC [id number] 08/08/2017 10:37:00 10/30/2017 00:01:00 DIS Outpatient JESSICA MATHIS Paulino [facility] ONC [id number] 04/18/2017 13:09:00 07/10/2017 00:01:00 DIS Outpatient JESSICA MATHIS Paulino [facility] ONC [id number] 04/04/2017 13:24:00 04/04/2017 15:24:00 DIS Emergency BJ JOYCE, HALIE Jensen [facility] ER DIZZY SPELLS [id number] 12/20/2016 13:02:00 03/13/2017 00:01:00 DIS Outpatient JESSICA MATHIS Paulino [facility] ONC [id number] 08/30/2016 09:37:00 11/21/2016 00:01:00 DIS Outpatient JESSICA MATHIS Paulino [facility] ONC [id number] 05/11/2016 10:03:00 07/23/2016 14:53:00 DIS Outpatient DEL, JESSICA Paulino [facility] ONC [id number] 05/11/2016 10:00:00 05/11/2016 23:59:59 CLS Outpatient CHERRI PENG [facility] ONC [id number] 03/23/2016 07:06:00 03/23/2016 09:05:00 DIS Outpatient AKASH GONZALES MD [facility] FOLLOW UP PROSTATE CANCER [id number] 03/22/2016 06:09:00 03/22/2016 08:56:00 DIS Outpatient AKASH GONZALES MD [facility] PREOP FOLLOW UP PROSTATE CANCER [id number] 02/16/2016 09:50:00 02/22/2016 00:01:00 DIS Outpatient JSESICA MATHIS N [facility] ONC [id number] 02/10/2016 10:24:00 02/10/2016 23:59:59 CLS Outpatient JESSICA MATHIS N [facility] CARD PROSTATE CA [id number] 11/17/2015 10:57:00 11/23/2015 00:01:00 DIS Outpatient JESSICA MATHIS N [facility] ONC [id number] 09/01/2015 13:06:00 09/01/2015 23:59:59 CLS Outpatient CHERRI PENG [facility] ONC [id number] 06/09/2015 13:10:00 07/13/2015 00:01:00 DIS Outpatient JESSICA MATHIS N [facility] ONC [id number] 05/31/2015 08:36:00 05/31/2015 11:45:00 DIS Outpatient AKASH GONZALES MD [facility] DYSPHAGIA [id number] 05/27/2015 05:44:00 05/27/2015 23:59:59 CLS Outpatient AKASH GONZALES MD [facility] PREOP DYSPHAGIA [id number] 03/17/2015 10:04:00 03/23/2015 00:01:00 DIS Outpatient JESSICA MATHIS [facility] ONC [id number] 03/17/2015 10:10:00 03/17/2015 23:59:59 CLS Outpatient CHERRI PENG [facility] ONC [id number] 03/10/2015 08:07:00 03/10/2015 23:59:59 CLS Outpatient JESSICA MATHIS [facility] CARD 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 [id number] 03/10/2015 08:03:00 03/10/2015 23:59:59 CLS Outpatient DELJESSICA Paulino [facility] RAD OSTEOPOROSIS BY MEDICATIONS [id number] 09/30/2014 13:56:00 11/21/2014 00:01:00 DIS Outpatient JESSICA MATHIS Paulino [facility] ONC [id number] 11/11/2014 10:21:00 11/11/2014 12:28:00 DIS Emergency HALIE LORENZO MD [facility] ER LEFT LEG INJURY [id number] 09/30/2014 02:45:00 09/30/2014 23:59:59 CLS Outpatient CHERRI PENGP [facility] ONC [id number] 08/30/2014 10:42:00 08/30/2014 23:59:59 CLS Outpatient DELJESSICA Paulino [facility] CARD COLON CA [id number] 08/16/2014 12:53:00 08/16/2014 17:03:00 DIS Emergency AGNES CALHOUN MD [facility] ER URINARY TROUBLE [id number] 08/10/2014 07:47:00 08/10/2014 23:59:59 CLS Outpatient AKASH GONZALES MD [facility] SDC RECTAL MASS [id number] 08/06/2014 07:08:00 08/06/2014 23:59:59 CLS Outpatient AKASH GONZALES MD [facility] PREOP RECTAL MASS [id number] 12/23/2012 06:53:00 Document Registration [id number] 12/19/2012 08:09:00 Document Registration [id number] 08/15/2012 10:54:00 Document Registration [id number] 06/13/2011 09:33:00 Document Registration [id number] 06/04/2019 17:47:27 06/04/2019 23:59:59 CLS Outpatient Babar Matt [id number] 05/19/2019 14:08:42 05/19/2019 23:59:59 CLS Outpatient Babar Matt [id number] 05/08/2019 14:59:49 05/08/2019 23:59:59 CLS Outpatient [facility] [id number] 05/06/2019 09:20:14 05/06/2019 23:59:59 CLS Outpatient [facility] [id number] 04/24/2019 12:44:14 04/24/2019 23:59:59 CLS Outpatient SON SENA [id number] 04/20/2019 15:51:02 04/20/2019 23:59:59 CLS Outpatient [facility] [id number] 03/20/2019 16:09:49 03/20/2019 23:59:59 CLS Outpatient Erasmo Urbina Ginette [id number] 03/20/2019 15:39:48 03/20/2019 23:59:59 [facility] Outpatient [facility] [id number] 02/10/2019 16:33:44 02/10/2019 23:59:59 [facility] Outpatient [facility] [id number] 02/09/2019 16:40:49 02/09/2019 23:59:59 [facility] [id number] 02/09/2019 16:02:52 02/09/2019 23:59:59 [facility] Outpatient [facility] [id number] 02/09/2019 14:33:29 02/09/2019 23:59:59 [facility] Outpatient [facility] [id number] 01/09/2019 11:13:20 01/09/2019 23:59:59 [facility] Outpatient [facility] [id number] 07/14/2019 15:19:39 [facility] Outpatient [facility]
== END 2019-06-23 11:17 | disposition home or self-care (01) ==
LOC: EDSTATUS 01:49 → UNDOADMIN 17:34 → 4TH 17:34 → UNDODISIN 06-23 12:50
PROVIDERS: ADMIT Family Medicine; ATTEND Family Medicine
DX: N39.0 Urinary tract infection, site not specified (principal); B95.62 Methicillin resistant Staphylococcus aureus infection as the cause of diseases classified elsewhere; B96.5 Pseudomonas (aeruginosa) (mallei) (pseudomallei) as the cause of diseases classified elsewhere; Z88.8 Allergy status to other drugs, medicaments and biological substances; Z85.46 Personal history of malignant neoplasm of prostate; Z87.891 Personal history of nicotine dependence; Z16.30 Resistance to unspecified antimicrobial drugs; Z96.0 Presence of urogenital implants
CPT/HCPCS: 36415; 80048; 85007; 85027; 99211; G0378

== ENCOUNTER 2019-09-23 10:29 | Outpatient (RCR) | payer MEDICARE, OTHER ==
[2019-07-22 15:14] LABS: BASOPHILS # (AUTO) 0.1 10^3/uL (0.0-0.1); BASOPHILS % (AUTO) 1 % (0-10); EOSINOPHILS # (AUTO) 0.3 10^3/uL (0.0-0.3); EOSINOPHILS % (AUTO) 6 % (0-10); HEMATOCRIT 33 % (40-54); HEMOGLOBIN 10.4 G/DL (13.3-17.7); LYMPHOCYTES # (AUTO) 1.3 X 10^3 (1.0-4.0); LYMPHOCYTES % (AUTO) 27 % (12-44); MEAN CORPUSCULAR HEMOGLOBIN 28 PG (25-34); MEAN CORPUSCULAR HGB CONC 32 G/DL (32-36); MEAN CORPUSCULAR VOLUME 88 FL (80-99); MEAN PLATELET VOLUME 8.9 FL (7.4-10.4); MONOCYTES # (AUTO) 0.4 X 10^3 (0.0-1.0); MONOCYTES % (AUTO) 9 % (0-12); NEUTROPHILS # (AUTO) 2.8 X 10^3 (1.8-7.8); NEUTROPHILS % (AUTO) 57 % (42-75); PLATELET COUNT 356 10^3/uL (130-400); RED CELL DISTRIBUTION WIDTH 13.7 % (10.0-14.5); WHITE BLOOD COUNT 4.9 10^3/uL (4.3-11.0)
[2019-07-22 15:16] LABS: SMEAR SCAN COMMENT YES
[2019-07-22 15:31] LABS: ALANINE AMINOTRANSFERASE < 6 U/L (0-55); ALBUMIN 3.6 GM/DL (3.2-4.5); ALKALINE PHOSPHATASE 98 U/L (40-136); BILIRUBIN,TOTAL 0.5 MG/DL (0.1-1.0); BUN/CREATININE RATIO 12; CALCIUM 9.2 MG/DL (8.5-10.1); CARBON DIOXIDE 26 MMOL/L (21-32); CHLORIDE 106 MMOL/L (98-107); CREATININE SERUM 1.21 MG/DL (0.60-1.30); GFR ESTIMATED 57; GLUCOSE 104 MG/DL (70-105); POTASSIUM 4.1 MMOL/L (3.6-5.0); SODIUM 142 MMOL/L (135-145); TOTAL PROTEIN 6.9 GM/DL (6.4-8.2)
[2019-08-19 11:00] LABS: BASOPHILS # (AUTO) 0.1 10^3/uL (0.0-0.1); BASOPHILS % (AUTO) 1 % (0-10); EOSINOPHILS # (AUTO) 0.1 10^3/uL (0.0-0.3); EOSINOPHILS % (AUTO) 1 % (0-10); HEMATOCRIT 35 % (40-54); HEMOGLOBIN 11.1 G/DL (13.3-17.7); LYMPHOCYTES % (AUTO) 11 % (12-44); MEAN CORPUSCULAR HEMOGLOBIN 28 PG (25-34); MEAN CORPUSCULAR HGB CONC 32 G/DL (32-36); MEAN CORPUSCULAR VOLUME 89 FL (80-99); MEAN PLATELET VOLUME 8.6 FL (7.4-10.4); MONOCYTES # (AUTO) 0.6 X 10^3 (0.0-1.0); MONOCYTES % (AUTO) 7 % (0-12); NEUTROPHILS # (AUTO) 7.3 X 10^3 (1.8-7.8); NEUTROPHILS % (AUTO) 81 % (42-75); PLATELET COUNT 342 10^3/uL (130-400); RED CELL DISTRIBUTION WIDTH 13.3 % (10.0-14.5); WHITE BLOOD COUNT 9.1 10^3/uL (4.3-11.0)
[2019-08-19 11:19] LABS: ALANINE AMINOTRANSFERASE < 6 U/L (0-55); ALBUMIN 3.8 GM/DL (3.2-4.5); ALKALINE PHOSPHATASE 104 U/L (40-136); BILIRUBIN,TOTAL 0.6 MG/DL (0.1-1.0); BUN/CREATININE RATIO 12; CALCIUM 9.5 MG/DL (8.5-10.1); CARBON DIOXIDE 26 MMOL/L (21-32); CHLORIDE 106 MMOL/L (98-107); CREATININE SERUM 1.29 MG/DL (0.60-1.30); GFR ESTIMATED 53; GLUCOSE 128 MG/DL (70-105); POTASSIUM 4.1 MMOL/L (3.6-5.0); SODIUM 142 MMOL/L (135-145)
[~2019-09-23 10:29] MED LIST changes: +CALC-6 PO; +CALC-712 PO; +CIPR-225 PO; +DOXY100T2 PO; +LEUPROLIDE ACETATE 30 MG SQ SCH; +PANT40SU PO; +TRAM1TAB7 PO; +TRM50T PO
[2019-09-23 10:39] LABS: BASOPHILS # (AUTO) 0.1 10^3/uL (0.0-0.1); BASOPHILS % (AUTO) 1 % (0-10); EOSINOPHILS # (AUTO) 0.2 10^3/uL (0.0-0.3); EOSINOPHILS % (AUTO) 3 % (0-10); HEMATOCRIT 32 % (40-54); HEMOGLOBIN 10.5 G/DL (13.3-17.7); LYMPHOCYTES # (AUTO) 1.1 X 10^3 (1.0-4.0); LYMPHOCYTES % (AUTO) 17 % (12-44); MEAN CORPUSCULAR HEMOGLOBIN 28 PG (25-34); MEAN CORPUSCULAR HGB CONC 33 G/DL (32-36); MEAN CORPUSCULAR VOLUME 86 FL (80-99); MEAN PLATELET VOLUME 8.6 FL (7.4-10.4); MONOCYTES # (AUTO) 0.6 X 10^3 (0.0-1.0); MONOCYTES % (AUTO) 9 % (0-12); NEUTROPHILS # (AUTO) 4.6 X 10^3 (1.8-7.8); NEUTROPHILS % (AUTO) 70 % (42-75); PLATELET COUNT 422 10^3/uL (130-400); RED CELL DISTRIBUTION WIDTH 13.2 % (10.0-14.5); WHITE BLOOD COUNT 6.6 10^3/uL (4.3-11.0)
[2019-09-23 11:00] LABS: ALANINE AMINOTRANSFERASE < 6 U/L (0-55); ALBUMIN 3.8 GM/DL (3.2-4.5); ALKALINE PHOSPHATASE 116 U/L (40-136); BILIRUBIN,TOTAL 0.6 MG/DL (0.1-1.0); BUN/CREATININE RATIO 16; CALCIUM 9.7 MG/DL (8.5-10.1); CARBON DIOXIDE 26 MMOL/L (21-32); CHLORIDE 105 MMOL/L (98-107); GFR ESTIMATED 48; GLUCOSE 87 MG/DL (70-105); POTASSIUM 4.2 MMOL/L (3.6-5.0); SODIUM 140 MMOL/L (135-145); TOTAL PROTEIN 7.3 GM/DL (6.4-8.2)
== END 2019-10-20 | disposition home or self-care (01) ==
LOC: ONC 10:29
PROVIDERS: ATTEND Internal Medicine Hematology & Oncology
DX: C61 Malignant neoplasm of prostate (principal); C79.51 Secondary malignant neoplasm of bone; C78.5 Secondary malignant neoplasm of large intestine and rectum; C79.11 Secondary malignant neoplasm of bladder; N13.30 Unspecified hydronephrosis; Z86.39 Personal history of other endocrine, nutritional and metabolic disease; Z87.81 Personal history of (healed) traumatic fracture
CPT/HCPCS: 36415; 80053; 84153; 85025; 96402; 99213

== ENCOUNTER 2020-01-12 14:18 | Outpatient (RCR) | payer MEDICARE, OTHER ==
[2019-10-23 13:16] LABS: BASOPHILS % (AUTO) 1 % (0-10); EOSINOPHILS # (AUTO) 0.1 10^3/uL (0.0-0.3); EOSINOPHILS % (AUTO) 2 % (0-10); HEMATOCRIT 29 % (40-54); HEMOGLOBIN 9.1 G/DL (13.3-17.7); LYMPHOCYTES # (AUTO) 1.2 X 10^3 (1.0-4.0); LYMPHOCYTES % (AUTO) 19 % (12-44); MEAN CORPUSCULAR HEMOGLOBIN 27 PG (25-34); MEAN CORPUSCULAR HGB CONC 31 G/DL (32-36); MEAN CORPUSCULAR VOLUME 87 FL (80-99); MONOCYTES # (AUTO) 0.6 X 10^3 (0.0-1.0); MONOCYTES % (AUTO) 10 % (0-12); NEUTROPHILS # (AUTO) 4.4 X 10^3 (1.8-7.8); NEUTROPHILS % (AUTO) 69 % (42-75); PLATELET COUNT 513 10^3/uL (130-400); RED CELL DISTRIBUTION WIDTH 12.7 % (10.0-14.5); WHITE BLOOD COUNT 6.4 10^3/uL (4.3-11.0)
[2019-10-23 13:33] LABS: ALANINE AMINOTRANSFERASE < 6 U/L (0-55); ALBUMIN 3.5 GM/DL (3.2-4.5); ALKALINE PHOSPHATASE 92 U/L (40-136); BILIRUBIN,TOTAL 0.4 MG/DL (0.1-1.0); BUN/CREATININE RATIO 14; CALCIUM 9.4 MG/DL (8.5-10.1); CARBON DIOXIDE 26 MMOL/L (21-32); CHLORIDE 104 MMOL/L (98-107); CREATININE SERUM 1.27 MG/DL (0.60-1.30); GFR ESTIMATED 54; GLUCOSE 110 MG/DL (70-105); POTASSIUM 4.2 MMOL/L (3.6-5.0); SODIUM 139 MMOL/L (135-145); TOTAL PROTEIN 7.2 GM/DL (6.4-8.2)
[2019-11-19 14:14] LABS: BASOPHILS # (AUTO) 0.1 10^3/uL (0.0-0.1); BASOPHILS % (AUTO) 1 % (0-10); EOSINOPHILS # (AUTO) 0.2 10^3/uL (0.0-0.3); EOSINOPHILS % (AUTO) 3 % (0-10); HEMATOCRIT 27 % (40-54); HEMOGLOBIN 8.4 G/DL (13.3-17.7); LYMPHOCYTES # (AUTO) 1.6 X 10^3 (1.0-4.0); LYMPHOCYTES % (AUTO) 27 % (12-44); MEAN CORPUSCULAR HEMOGLOBIN 27 PG (25-34); MEAN CORPUSCULAR HGB CONC 31 G/DL (32-36); MEAN CORPUSCULAR VOLUME 87 FL (80-99); MEAN PLATELET VOLUME 7.9 FL (7.4-10.4); MONOCYTES # (AUTO) 0.5 X 10^3 (0.0-1.0); MONOCYTES % (AUTO) 9 % (0-12); NEUTROPHILS # (AUTO) 3.6 X 10^3 (1.8-7.8); NEUTROPHILS % (AUTO) 60 % (42-75); PLATELET COUNT 485 10^3/uL (130-400); RED CELL DISTRIBUTION WIDTH 13.5 % (10.0-14.5); WHITE BLOOD COUNT 5.9 10^3/uL (4.3-11.0)
[2019-11-19 14:36] LABS: ALANINE AMINOTRANSFERASE < 6 U/L (0-55); ALBUMIN 3.5 GM/DL (3.2-4.5); ALKALINE PHOSPHATASE 99 U/L (40-136); BILIRUBIN,TOTAL 0.4 MG/DL (0.1-1.0); BUN/CREATININE RATIO 14; CALCIUM 9.4 MG/DL (8.5-10.1); CARBON DIOXIDE 27 MMOL/L (21-32); CHLORIDE 103 MMOL/L (98-107); CREATININE SERUM 1.38 MG/DL (0.60-1.30); GFR ESTIMATED 49; GLUCOSE 103 MG/DL (70-105); POTASSIUM 4.5 MMOL/L (3.6-5.0); SODIUM 139 MMOL/L (135-145); TOTAL PROTEIN 7.5 GM/DL (6.4-8.2)
[2019-12-17 13:18] LABS: BASOPHILS % (AUTO) 1 % (0-10); EOSINOPHILS # (AUTO) 0.1 10^3/uL (0.0-0.3); EOSINOPHILS % (AUTO) 2 % (0-10); HEMATOCRIT 29 % (40-54); LYMPHOCYTES # (AUTO) 1.2 X 10^3 (1.0-4.0); LYMPHOCYTES % (AUTO) 19 % (12-44); MEAN CORPUSCULAR HEMOGLOBIN 27 PG (25-34); MEAN CORPUSCULAR HGB CONC 31 G/DL (32-36); MEAN CORPUSCULAR VOLUME 87 FL (80-99); MEAN PLATELET VOLUME 7.8 FL (7.4-10.4); MONOCYTES # (AUTO) 0.5 X 10^3 (0.0-1.0); MONOCYTES % (AUTO) 8 % (0-12); NEUTROPHILS # (AUTO) 4.6 X 10^3 (1.8-7.8); NEUTROPHILS % (AUTO) 71 % (42-75); PLATELET COUNT 536 10^3/uL (130-400); RED CELL DISTRIBUTION WIDTH 14.7 % (10.0-14.5); WHITE BLOOD COUNT 6.4 10^3/uL (4.3-11.0)
[2019-12-17 13:37] LABS: ALANINE AMINOTRANSFERASE < 6 U/L (0-55); ALBUMIN 3.6 GM/DL (3.2-4.5); ALKALINE PHOSPHATASE 103 U/L (40-136); BILIRUBIN,TOTAL 0.4 MG/DL (0.1-1.0); BUN/CREATININE RATIO 13; CALCIUM 9.6 MG/DL (8.5-10.1); CARBON DIOXIDE 25 MMOL/L (21-32); CHLORIDE 104 MMOL/L (98-107); CREATININE SERUM 1.42 MG/DL (0.60-1.30); GFR ESTIMATED 47; GLUCOSE 103 MG/DL (70-105); POTASSIUM 4.2 MMOL/L (3.6-5.0); SODIUM 140 MMOL/L (135-145); TOTAL PROTEIN 7.8 GM/DL (6.4-8.2)
[~2020-01-12 14:18] MED LIST changes: -LEUPROLIDE ACETATE 30 MG SQ SCH
[2020-01-12 14:34] LABS: BASOPHILS % (AUTO) 1 % (0-10); EOSINOPHILS # (AUTO) 0.1 10^3/uL (0.0-0.3); EOSINOPHILS % (AUTO) 1 % (0-10); HEMATOCRIT 28 % (40-54); HEMOGLOBIN 8.5 G/DL (13.3-17.7); LYMPHOCYTES # (AUTO) 0.9 X 10^3 (1.0-4.0); LYMPHOCYTES % (AUTO) 16 % (12-44); MEAN CORPUSCULAR HEMOGLOBIN 26 PG (25-34); MEAN CORPUSCULAR HGB CONC 31 G/DL (32-36); MEAN CORPUSCULAR VOLUME 86 FL (80-99); MEAN PLATELET VOLUME 8.1 FL (7.4-10.4); MONOCYTES # (AUTO) 0.4 X 10^3 (0.0-1.0); MONOCYTES % (AUTO) 7 % (0-12); NEUTROPHILS # (AUTO) 4.5 X 10^3 (1.8-7.8); NEUTROPHILS % (AUTO) 76 % (42-75); PLATELET COUNT 384 10^3/uL (130-400); RED CELL DISTRIBUTION WIDTH 14.9 % (10.0-14.5); WHITE BLOOD COUNT 5.9 10^3/uL (4.3-11.0)
[2020-01-12 14:54] LABS: ALANINE AMINOTRANSFERASE < 6 U/L (0-55); ALBUMIN 3.5 GM/DL (3.2-4.5); ALKALINE PHOSPHATASE 98 U/L (40-136); BILIRUBIN,TOTAL 0.4 MG/DL (0.1-1.0); BUN/CREATININE RATIO 15; CALCIUM 8.7 MG/DL (8.5-10.1); CARBON DIOXIDE 22 MMOL/L (21-32); CHLORIDE 105 MMOL/L (98-107); CREATININE SERUM 1.23 MG/DL (0.60-1.30); GFR ESTIMATED 56; GLUCOSE 119 MG/DL (70-105); POTASSIUM 4.2 MMOL/L (3.6-5.0); SODIUM 139 MMOL/L (135-145); TOTAL PROTEIN 6.9 GM/DL (6.4-8.2)
== END 2020-01-21 | disposition home or self-care (01) ==
LOC: ONC 14:18
PROVIDERS: ATTEND Internal Medicine Hematology & Oncology
DX: C61 Malignant neoplasm of prostate (principal); C79.51 Secondary malignant neoplasm of bone; C78.5 Secondary malignant neoplasm of large intestine and rectum; C79.11 Secondary malignant neoplasm of bladder; N13.30 Unspecified hydronephrosis; E55.9 Vitamin D deficiency, unspecified; Z87.81 Personal history of (healed) traumatic fracture; Z86.39 Personal history of other endocrine, nutritional and metabolic disease; Z79.899 Other long term (current) drug therapy; Z96.0 Presence of urogenital implants; Z98.890 Other specified postprocedural states
CPT/HCPCS: 80053; 82306; 82728; 83540; 84153; 85025; 99213

== ENCOUNTER 2020-04-19 13:21 | Outpatient (RCR) | payer MEDICARE, OTHER ==
[2020-01-26 13:40] LABS: BASOPHILS % (AUTO) 1 % (0-10); EOSINOPHILS # (AUTO) 0.1 10^3/uL (0.0-0.3); EOSINOPHILS % (AUTO) 2 % (0-10); HEMATOCRIT 32 % (40-54); HEMOGLOBIN 9.8 G/DL (13.3-17.7); LYMPHOCYTES # (AUTO) 0.9 X 10^3 (1.0-4.0); LYMPHOCYTES % (AUTO) 12 % (12-44); MEAN CORPUSCULAR HEMOGLOBIN 26 PG (25-34); MEAN CORPUSCULAR HGB CONC 31 G/DL (32-36); MEAN CORPUSCULAR VOLUME 86 FL (80-99); MEAN PLATELET VOLUME 8.2 FL (7.4-10.4); MONOCYTES # (AUTO) 0.4 X 10^3 (0.0-1.0); MONOCYTES % (AUTO) 6 % (0-12); NEUTROPHILS # (AUTO) 5.6 X 10^3 (1.8-7.8); NEUTROPHILS % (AUTO) 79 % (42-75); PLATELET COUNT 418 10^3/uL (130-400); RED CELL DISTRIBUTION WIDTH 14.2 % (10.0-14.5); WHITE BLOOD COUNT 7.1 10^3/uL (4.3-11.0)
[2020-01-26 14:11] LABS: ALANINE AMINOTRANSFERASE < 6 U/L (0-55); ALBUMIN 3.6 GM/DL (3.2-4.5); ALKALINE PHOSPHATASE 110 U/L (40-136); BILIRUBIN,TOTAL 0.3 MG/DL (0.1-1.0); BUN/CREATININE RATIO 16; CARBON DIOXIDE 28 MMOL/L (21-32); CHLORIDE 103 MMOL/L (98-107); CREATININE SERUM 1.17 MG/DL (0.60-1.30); GFR ESTIMATED 59; GLUCOSE 118 MG/DL (70-105); POTASSIUM 4.3 MMOL/L (3.6-5.0); SODIUM 139 MMOL/L (135-145); TOTAL PROTEIN 7.3 GM/DL (6.4-8.2)
[2020-02-09 10:37] LABS: BASOPHILS # (AUTO) 0.1 10^3/uL (0.0-0.1); BASOPHILS % (AUTO) 1 % (0-10); EOSINOPHILS # (AUTO) 0.2 10^3/uL (0.0-0.3); EOSINOPHILS % (AUTO) 3 % (0-10); HEMATOCRIT 33 % (40-54); HEMOGLOBIN 10.2 G/DL (13.3-17.7); LYMPHOCYTES # (AUTO) 1.2 X 10^3 (1.0-4.0); LYMPHOCYTES % (AUTO) 19 % (12-44); MEAN CORPUSCULAR HEMOGLOBIN 26 PG (25-34); MEAN CORPUSCULAR HGB CONC 31 G/DL (32-36); MEAN CORPUSCULAR VOLUME 84 FL (80-99); MONOCYTES # (AUTO) 0.6 X 10^3 (0.0-1.0); MONOCYTES % (AUTO) 9 % (0-12); NEUTROPHILS # (AUTO) 4.3 X 10^3 (1.8-7.8); NEUTROPHILS % (AUTO) 68 % (42-75); PLATELET COUNT 389 10^3/uL (130-400); RED CELL DISTRIBUTION WIDTH 14.3 % (10.0-14.5); WHITE BLOOD COUNT 6.3 10^3/uL (4.3-11.0)
[2020-02-09 11:00] LABS: CALCIUM 9.2 MG/DL (8.5-10.1); CREATININE SERUM 1.21 MG/DL (0.60-1.30); POTASSIUM 4.2 MMOL/L (3.6-5.0)
[2020-02-22 15:55] LABS: BASOPHILS % (AUTO) 1 % (0-10); EOSINOPHILS # (AUTO) 0.1 10^3/uL (0.0-0.3); EOSINOPHILS % (AUTO) 1 % (0-10); HEMATOCRIT 33 % (40-54); HEMOGLOBIN 10.3 G/DL (13.3-17.7); LYMPHOCYTES # (AUTO) 1.1 X 10^3 (1.0-4.0); LYMPHOCYTES % (AUTO) 17 % (12-44); MEAN CORPUSCULAR HEMOGLOBIN 26 PG (25-34); MEAN CORPUSCULAR HGB CONC 31 G/DL (32-36); MEAN CORPUSCULAR VOLUME 84 FL (80-99); MONOCYTES # (AUTO) 0.5 X 10^3 (0.0-1.0); MONOCYTES % (AUTO) 8 % (0-12); NEUTROPHILS # (AUTO) 4.7 X 10^3 (1.8-7.8); NEUTROPHILS % (AUTO) 74 % (42-75); PLATELET COUNT 384 10^3/uL (130-400); RED CELL DISTRIBUTION WIDTH 14.4 % (10.0-14.5); WHITE BLOOD COUNT 6.3 10^3/uL (4.3-11.0)
[2020-02-22 16:19] LABS: ALBUMIN 3.6 GM/DL (3.2-4.5); BILIRUBIN,TOTAL 0.4 MG/DL (0.1-1.0); CALCIUM 8.9 MG/DL (8.5-10.1); CREATININE SERUM 1.22 MG/DL (0.60-1.30); POTASSIUM 4.4 MMOL/L (3.6-5.0); TOTAL PROTEIN 7.1 GM/DL (6.4-8.2)
[2020-03-21 11:19] LABS: BASOPHILS % (AUTO) 0 % (0-10); EOSINOPHILS # (AUTO) 0.1 10^3/uL (0.0-0.3); EOSINOPHILS % (AUTO) 1 % (0-10); HEMATOCRIT 34 % (40-54); HEMOGLOBIN 10.8 G/DL (13.3-17.7); LYMPHOCYTES # (AUTO) 1.9 X 10^3 (1.0-4.0); LYMPHOCYTES % (AUTO) 19 % (12-44); MEAN CORPUSCULAR HEMOGLOBIN 27 PG (25-34); MEAN CORPUSCULAR HGB CONC 32 G/DL (32-36); MEAN CORPUSCULAR VOLUME 85 FL (80-99); MEAN PLATELET VOLUME 8.1 FL (7.4-10.4); MONOCYTES # (AUTO) 0.9 X 10^3 (0.0-1.0); MONOCYTES % (AUTO) 9 % (0-12); NEUTROPHILS # (AUTO) 7.3 X 10^3 (1.8-7.8); NEUTROPHILS % (AUTO) 71 % (42-75); PLATELET COUNT 420 10^3/uL (130-400); RED CELL DISTRIBUTION WIDTH 14.7 % (10.0-14.5); WHITE BLOOD COUNT 10.3 10^3/uL (4.3-11.0)
[2020-03-21 11:37] LABS: ALBUMIN 3.7 GM/DL (3.2-4.5); BILIRUBIN,TOTAL 0.5 MG/DL (0.1-1.0); CALCIUM 9.2 MG/DL (8.5-10.1); CREATININE SERUM 1.34 MG/DL (0.60-1.30); POTASSIUM 3.9 MMOL/L (3.6-5.0); TOTAL PROTEIN 6.5 GM/DL (6.4-8.2)
[2020-04-11 12:49] LABS: BASOPHILS % (AUTO) 1 % (0-10); EOSINOPHILS # (AUTO) 0.1 10^3/uL (0.0-0.3); EOSINOPHILS % (AUTO) 2 % (0-10); HEMATOCRIT 28 % (40-54); HEMOGLOBIN 8.9 G/DL (13.3-17.7); LYMPHOCYTES # (AUTO) 1.3 X 10^3 (1.0-4.0); LYMPHOCYTES % (AUTO) 18 % (12-44); MEAN CORPUSCULAR HEMOGLOBIN 27 PG (25-34); MEAN CORPUSCULAR HGB CONC 32 G/DL (32-36); MEAN CORPUSCULAR VOLUME 86 FL (80-99); MEAN PLATELET VOLUME 7.7 FL (7.4-10.4); MONOCYTES # (AUTO) 0.6 X 10^3 (0.0-1.0); MONOCYTES % (AUTO) 8 % (0-12); NEUTROPHILS # (AUTO) 5.2 X 10^3 (1.8-7.8); NEUTROPHILS % (AUTO) 71 % (42-75); PLATELET COUNT 549 10^3/uL (130-400); RED CELL DISTRIBUTION WIDTH 13.6 % (10.0-14.5); WHITE BLOOD COUNT 7.3 10^3/uL (4.3-11.0)
[2020-04-11 13:09] LABS: ALBUMIN 3.1 GM/DL (3.2-4.5); BILIRUBIN,TOTAL 0.4 MG/DL (0.1-1.0); CALCIUM 8.7 MG/DL (8.5-10.1); CREATININE SERUM 1.25 MG/DL (0.60-1.30); TOTAL PROTEIN 6.7 GM/DL (6.4-8.2)
[~2020-04-19 13:21] MED LIST changes: +LEUPROLIDE ACETATE 30 MG SQ SCH
[2020-04-19] MEDS ORDERED: NS IV 500 ML (CANCER CENTER) 500 ML ONE (14:34)
[2020-04-19 14:50] LABS: BASOPHILS # (AUTO) 0.1 10^3/uL (0.0-0.1); BASOPHILS % (AUTO) 1 % (0-10); EOSINOPHILS # (AUTO) 0.3 10^3/uL (0.0-0.3); EOSINOPHILS % (AUTO) 4 % (0-10); HEMATOCRIT 31 % (40-54); HEMOGLOBIN 9.6 G/DL (13.3-17.7); LYMPHOCYTES # (AUTO) 1.4 X 10^3 (1.0-4.0); LYMPHOCYTES % (AUTO) 21 % (12-44); MEAN CORPUSCULAR HEMOGLOBIN 27 PG (25-34); MEAN CORPUSCULAR HGB CONC 31 G/DL (32-36); MEAN CORPUSCULAR VOLUME 86 FL (80-99); MEAN PLATELET VOLUME 7.7 FL (7.4-10.4); MONOCYTES # (AUTO) 0.7 X 10^3 (0.0-1.0); MONOCYTES % (AUTO) 11 % (0-12); NEUTROPHILS # (AUTO) 4.1 X 10^3 (1.8-7.8); NEUTROPHILS % (AUTO) 63 % (42-75); PLATELET COUNT 926 10^3/uL (130-400); RED CELL DISTRIBUTION WIDTH 13.7 % (10.0-14.5); WHITE BLOOD COUNT 6.6 10^3/uL (4.3-11.0)
[2020-04-19 15:06] LABS: ALBUMIN 3.5 GM/DL (3.2-4.5); BILIRUBIN,TOTAL 0.3 MG/DL (0.1-1.0); CALCIUM 9.2 MG/DL (8.5-10.1); CREATININE SERUM 1.33 MG/DL (0.60-1.30); POTASSIUM 4.1 MMOL/L (3.6-5.0); TOTAL PROTEIN 7.4 GM/DL (6.4-8.2)
== END 2020-04-25 | disposition home or self-care (01) ==
LOC: ONC 13:21
PROVIDERS: ATTEND Internal Medicine Hematology & Oncology
DX: C61 Malignant neoplasm of prostate (principal); C78.5 Secondary malignant neoplasm of large intestine and rectum; C79.11 Secondary malignant neoplasm of bladder; C79.51 Secondary malignant neoplasm of bone; E55.9 Vitamin D deficiency, unspecified; N13.30 Unspecified hydronephrosis; Z86.39 Personal history of other endocrine, nutritional and metabolic disease; Z79.899 Other long term (current) drug therapy; Z96.0 Presence of urogenital implants; Z98.890 Other specified postprocedural states; Z87.81 Personal history of (healed) traumatic fracture
CPT/HCPCS: 80053; 84153; 85025; 96402; G0463; 36415; 80048; 96360; 99213